=== PATIENT | male | born 1985 | race Caucasian/White ===

== ENCOUNTER → 2020-03-26 10:04 | Outpatient (CLI) | payer BC, SELFPAY | PROVIDERS: PCP Family Medicine; Referring Provider Dermatology; Visit Provider Dermatology | DX: L20.89 Other atopic dermatitis (principal) | CPT/HCPCS: 87070; 87077; 87186; 87205 ==

== ENCOUNTER 2020-12-10 08:58 | Outpatient (RCR) | payer BC, SELFPAY | END 2021-01-14 23:59 | LOC: IMMUN 08:58 | PROVIDERS: PCP Family Medicine; Visit Provider Family Medicine | DX: Z23 Encounter for immunization (principal) | CPT/HCPCS: 0001A; 0002A; 91300 ==

== ENCOUNTER 2023-04-17 14:49 | Inpatient (IN) | payer BC, SELFPAY ==
[2023-04-17 14:49] VITALS: BP 168/110; PULSE 127; RESP 18; TEMP 35.5; O2SAT 93; BMI 50.2
--- NOTE | 2023-04-17 15:09 | CT_ITS ---
EXAM: CT ABDOMEN AND PELVIS WITH INTRAVENOUS CONTRAST CLINICAL INDICATION: abd pain, hernia, vomiting TECHNIQUE: Helically acquired images were obtained of the abdomen and pelvis with intravenous contrast. This CT exam was performed using one or more of the following dose reduction techniques: automated exposure control, adjustment of the mA and/or kV according to patient size, and/or use of iterative reconstruction technique. CONTRAST: IV 100mL Isovue-370 COMPARISON: No relevant prior studies available. FINDINGS: LOWER THORAX: Unremarkable. Lung bases are clear. No cardiomegaly. No significant pericardial effusion. ABDOMEN: LIVER: Liver is diffusely decreased in attenuation compatible with fatty infiltration. GALLBLADDER AND BILE DUCTS: Unremarkable. No calcified gallstones. No gallbladder distention or wall edema. No intra- or extrahepatic biliary ductal dilation. PANCREAS: Unremarkable. No focal cystic or solid mass. SPLEEN: Unremarkable. Normal size without focal cystic or solid mass. ADRENALS: Unremarkable. No nodules. KIDNEYS AND URETERS: Unremarkable. Normal renal size and position. No hydronephrosis. STOMACH AND BOWEL: There are dilated gas and fluid-filled loops of bowel proximally normal caliber bowel loops distally compatible with mechanical obstruction. There is an umbilical hernia which has a bowel in the hernia sac which appears to point of obstruction. No focal inflammatory change. PELVIS: APPENDIX: No evidence of acute appendicitis. BLADDER: Unremarkable. REPRODUCTIVE: Unremarkable as visualized. No mass. ABDOMEN and PELVIS: INTRAPERITONEAL SPACE: Unremarkable. No ascites or other fluid collection. No free air. BONES/JOINTS: Unremarkable. No suspicious lytic or blastic abnormality. SOFT TISSUES: See above. VASCULATURE: Unremarkable. Abdominal aorta is non-dilated. LYMPH NODES: Unremarkable. No enlarged lymph nodes. CT/Abdomen/Pelvis W IV Cont ONLY IMPRESSION: Dilated gas and fluid-filled loops of small bowel proximally with normal caliber bowel loops distally compatible with mechanical obstruction. There is an umbilical hernia which contains a loop of bowel and appears to be the point of obstruction. Electronically Signed: Tommy Marion MD at 17:00 EDT ,
--- NOTE | 2023-04-17 15:23 | EDS_ITS ---
HPI HPI - GI History of Present Illness Chief Complaint: Abd Pain Informant: patient and parent Narrative Narrative: Patient is a 37-year-old male presenting from home for continued abdominal pain, nausea and vomiting. Patient states his symptoms for started 3 [place] Initially they thought it was some type of food poisoning. He has continued to have vomiting. He has had a bowel movement a couple days. He is having diffuse abdominal pain but points more to his umbilical region. He does note that he thinks he has a hernia in that area. He states he just noticed it about a week and a half ago however has been more painful over the past day or so. Denies any blood in his vomit. He states he cannot keep anything down and throws up everything. He notes he has not urinated since yesterday. Denies any fever but does feel clammy. No history of any abdominal surgeries. Has never had a thing like this before. No other complaints or concerns at this time. Notes he is also feeling very anxious and does have a history of anxiety. PFSH PFSH Home Medications lisdexamfetamine 70 mg capsule (Vyvanse) 70 mg PO DAILY 12/03/15 [History Last Taken Unknown] albuterol sulfate 90 mcg/actuation aerosol inhaler 2 puff inhalation Q4H PRN shortness of breath 04/17/23 [History Last Taken Unknown] cetirizine 10 mg tablet (24Hour Allergy) 10 mg PO DAILY allergies 04/17/23 [History Last Taken Unknown] fluticasone propionate 50 mcg/actuation nasal spray,suspension 2 spray intranasal DAILY allergies 04/17/23 [History Last Taken Unknown] hydrochlorothiazide 12.5 mg capsule 12.5 mg PO DAILY HTN 04/17/23 [History Last Taken Unknown] lisinopril 10 mg tablet 10 mg PO DAILY 04/17/23 [History Last Taken Unknown] meloxicam 15 mg tablet 15 mg PO DAILY 04/17/23 [History Last Taken Unknown] omeprazole 20 mg capsule,delayed release 20 mg PO DAILY 04/17/23 [History Last Taken Unknown] sertraline 100 mg tablet 100 mg PO DAILY depression 04/17/23 [History Last Taken Unknown] Allergy/AdvReac Type Severity Reaction Status Date / Time latex Allergy Rash Verified 04/17/23 14:51 Social History Smoking Status: Former smoker ROS ROS ED Constitutional Constitutional ED: Reports other Details: Clammy, not able to keep anything down ; Denies chills or fever(s) Cardiovascular Cardiovascular: Denies chest pain Respiratory/Chest Respiratory/Chest: Denies cough Gastrointestinal Gastrointestinal: Reports abdominal pain, constipation, nausea and vomiting; Denies diarrhea Genitourinary Genitourinary ED: Reports other Details: Decreased urination, denies any testicular pain ; Denies dysuria Musculoskeletal Musculoskeletal: Denies arthralgias or myalgias Integumentary Denies rash Neurologic Neurologic: Denies headache(s) Psychiatric Psychiatric: Reports anxiety EXAM Physical Exam Const Vital Signs: 04/17/23 14:49 04/17/23 16:42 Temperature 96 F L 97 F L Temperature Source Temporal Temporal Pulse Rate 127 H 106 H Respiratory Rate 18 20 H Blood Pressure 168/110 H 142/69 H Blood Pressure Mean 129 93 Pulse Ox 93 92 Oxygen Delivery Method Room Air Room Air Positive well nourished and obese Constitutional Narrative: Uncomfortable appearing Nutritional Appearance: obese HEENT Reports dry mucous membranes Mouth ED: Yes dry mucous membranes Mouth: dry mucous membranes Eyes PERRL and EOMs intact bilaterally General Eye ED: Negative for scleral icterus Neck supple Resp normal respiratory effort and clear to auscultation bilaterally Cardio regular rhythm Rate: tachycardic GI GI Narrative: Patient has a periumbilical hernia just superior and to the left of the umbi licus. It is firm and tender. Does not easily reduce. There is no overlying erythema. Inspection: abdominal distention Auscultation: hypoactive bowel sounds Palpation: soft; Negative for guarding Extremity full ROM General Extremety ED: Negative for edema General Extremity: Negative for edema Neuro moves all extremities Sensorium / Orientation: alert, oriented to person, oriented to place and oriented to time Psych mental status grossly normal Mood & Affect: anxious Skin no wounds Rashes: no rashes MDM MDM MDM Narrative Medical decision making narrative: Patient is evaluated for nausea, vomiting abdominal pain. On arrival he is hypertensive (does have a history of hypertension) and tachycardic. He does appear dehydrated. I am concerned about incarcerated hernia based on physical exam and HPI. We will attempt some pain control, ice over the hernia and try to reduce. If not we will evaluate after CT. At this time he does not have overlying erythema and I have a lower suspicion for strangulated hernia. 1600?patient is reevaluated after medicated. With steady gentle pressure I am able to reduce the hernia. Patient tolerates this reasonably well and has impro vement of pain after reduction. We will continue with work-up looking for signs of ischemia, obstruction on CT, pancreatitis, renal insufficiency/dehydration. Patient is a mild leukocytosis does appear to be hemoconcentrated with an elevated hemoglobin and he has a very mild transaminitis on his CMP. Lipase is normal. CT is concerning for mechanical obstruction. Patient continues to have significant movement of pain after manual reduction of the hernia. His lactate is normal. Low sufficient for strangulated hernia. Surgical consult is obtained and case is discussed with Dr. Genao. He will admit the patient and plan for laparoscopic hernia repair. Patient agreeable this plan of care. Patient will will continue hydration and symptom control the meantime. Lab Data Labs: Laboratory Results - last 24 hr 04/17/23 15:35 WBC 12.8 H RBC 6.48 H Hgb 17.3 H Hct 51.9 MCV 80.1 MCH 26.7 L MCHC 33.3 RDW Std Deviation 45.0 H RDW Coeff of Kiet 16.3 H Plt Count 202 MPV 10.2 Immature Gran % (Auto) 0.300 Neut % (Auto) 82.5 H Lymph % (Auto) 5.5 L [place] % (Auto) 10.9 H Eos % (Auto) 0.5 Baso % (Auto) 0.3 Absolute Neuts (auto) 10.6 H Absolute Lymphs (auto) 0.70 L Nucleated RBC % 0 Sodium 137 Potassium 3.5 Chloride 101 Carbon Dioxide 29.0 Anion Gap 7 BUN 27 H Creatinine 1.15 Estim Creat Clear Calc 104.24 Est GFR (MDRD) Af Amer 93 Est GFR (MDRD) Non-Af 77 BUN/Creatinine Ratio 23.5 H Glucose 142 H Lactic Acid 1.4 Calcium 9.4 Total Bilirubin 1.20 H AST 41 H ALT 86 H Alkaline Phosphatase 103 Total Protein 8.2 Albumin 4.2 Globulin 4.0 Albumin/Globulin Ratio 1.0 Lipase 27 Radiography Diagnostic Testing: Clinical Impression(s) from Imaging Studies Abdomen/Pelvis CT 04/17/23 15:09 IMPRESSION: Dilated gas and fluid-filled loops of small bowel proximally with normal caliber bowel loops distally compatible with mechanical obstruction. There is an umbilical hernia which contains a loop of bowel and appears to be the point of obstruction. Electronically Signed: Tommy Marion MD at 17:00 EDT , Management Discussion w/another healthcare provider: Injection Molding Process Technician Discharge Plan Triage Chief Complaint: Abd Pain ED Provider: Radhika Soria Dx/Rx/DC Orders Clinical Impression: Ventral hernia with obstruction but no gangrene, Acute dehydration Primary Care Provider: Giuseppe Sheets Disposition Disposition: Acute Care Hospital [facility]
[2023-04-17 15:45] LABS: Absolute Neutrophil Count 10.6 X10^3/uL (2.0-7.7); Basophil# 0.04 X10^3/uL; Basophil% 0.3 % (0-1); Eosinophil# 0.06 X10^3/uL; Eosinophils% 0.5 % (0-5); Hematocrit 51.9 % (40-54); Hemoglobin 17.3 g/dL (13.0-16.5); Lymphocyte % 5.5 % (19-41); Mean Corp Hgb Conc 33.3 g/dL (32-36); Mean Corpuscular Hgb 26.7 pg (27.0-32.0); Mean Corpuscular Volume 80.1 fL (80-94); Mean Platelet Vol. 10.2 fl (6.2-12.0); Monocyte% 10.9 % (0-10); NRBC Flagged by Analyzer 0 % (0-5); Neutrophil # 10.56 X10^3/uL (2.7-7.7); Neutrophil % 82.5 % (47-70); Platelet Count 202 K/mm3 (150-450); RBC Distribution Width CV 16.3 % (11.6-14.6); Red Blood Count 6.48 M/mm3 (4.6-6.2); White Blood Count 12.8 K/mm3 (4.4-11.0)
[2023-04-17] MEDS: morphine 8 MG/ML Syringe IV (15:46)
[2023-04-17] MEDS: 0.9% Normal Saline (1000mL) 1,000 ML 1000 ML IV (15:46)
[2023-04-17] MEDS: Ondansetron 4 MG/2 ML Vial IV (15:46)
[2023-04-17 16:08] LABS: Lactic Acid 1.4 mmol/L (0.4-1.9)
[2023-04-17 16:09] LABS: AST(SGOT) 41 U/L (15-37); Alanine Aminotransfer ALT/SGPT 86 U/L (16-61); Albumin, Serum 4.2 g/dL (3.2-5.0); Alkaline Phosphatase 103 U/L (45-117); Anion Gap 7 (5-15); BUN 27 mg/dL (7-18); BUN/Creat Ratio 23.5 RATIO (10-20); Calcium,Total 9.4 mg/dL (8.5-10.1); Chloride 101 mmol/L (98-107); Creatinine, Serum 1.15 mg/dL (0.70-1.30); EST Glomerular Filtration Rate 77 mL/min (>60); Est Glom Filt Rate - Afr Amer 93 mL/min (>60); Estimated Creatinine Clearance 104.24 ml/min; Glucose 142 mg/dL (74-106); Lipase 27 U/L (13-75); Potassium 3.5 mmol/L (3.5-5.1); Protein, Total 8.2 g/dL (6.4-8.2); Sodium Level 137 mmol/L (136-145)
[2023-04-17 16:42] VITALS: BP 142/69; PULSE 106; RESP 20; TEMP 36.1; O2SAT 92
--- NOTE | 2023-04-17 16:43 | PCM.HP.STD ---
HPI - General HPI Narrative ALEXANDRU MYERS, is a 37 M who presents with pain and nausea and vomiting. Patient says this started today. Patient says he noted his hernia about a week ago. This is the first time he is noticed it. The emergency room physician reduce his hernia and he reports he is feeling better. He is not nauseous currently. [facility] Home Medications etodolac 300 mg capsule 300 mg PO TIDCM ##30 12/03/15 [Rx Last Taken Unknown] lisdexamfetamine 70 mg capsule (Vyvanse) 70 mg PO DAILY 12/03/15 [History Last Taken Unknown] prednisone 10 mg tablet 10 mg PO DAILY 12/03/15 [History Last Taken Unknown] Allergy/AdvReac Type Severity Reaction Status Date / Time latex Allergy Rash Verified 04/17/23 14:51 Social History Smoking Status: Former smoker ROS Constitutional Constitutional: Reports anorexia; Denies fatigue or fever(s) Eyes Eyes: Denies blurry vision ENT HEENT: Denies abnormal hearing Cardiovascular Cardiovascular: Denies chest pain Respiratory/Chest Respiratory/Chest: Denies cough or dyspnea Gastrointestinal Gastrointestinal: Reports abdominal pain, nausea and vomiting; Denies coffee ground emesis or rectal bleeding Genitourinary Genitourinary: Denies difficulty urinating Musculoskeletal Musculoskeletal: Denies abnormal gait Integumentary Integumentary: Denies jaundice Neurologic Neurologic: Denies dizziness Vital Signs Vital Signs Vital Signs: 04/17/23 14:49 Temperature 96 F L Temperature Source Temporal Pulse Rate 127 H Respiratory Rate 18 Blood Pressure 168/110 H Blood Pressure Mean 129 Pulse Ox 93 Oxygen Delivery Method Room Air Weight Weight: 391 lb Body Mass Index (BMI) 50.2 Physical Exam Const oriented x3 and no apparent distress Resp normal respiratory effort Cardio regular rhythm Rate: tachycardic GI soft to palpation GI Narrative: Patient's abdomen is soft and obese. He has a hernia at the umbilicus which does not contain any bowel currently. He is tender at the hernia but the rest the abdomen is nontender. Results Lab / Micro Data 04/17/23 15:35 04/17/23 15:35 Labs: Laboratory Results - last 24 hr 04/17/23 15:35: WBC 12.8 H, RBC 6.48 H, Hgb 17.3 H, Hct 51.9, MCV 80.1, MCH 26.7 L, MCHC 33.3, RDW Std Deviation 45.0 H, RDW Coeff of Kiet 16.3 H, Plt Count 202, MPV 10.2, Immature Gran % (Auto) 0.300, Neut % (Auto) 82.5 H, Lymph % (Auto) 5.5 L, [place] % (Auto) 10.9 H, Eos % (Auto) 0.5, Baso % (Auto) 0.3, Absolute Neuts (auto) 10.6 H, Absolute Lymphs (auto) 0.70 L, Nucleated RBC % 0, Sodium 137, Potassium 3.5, Chloride 101, Carbon Dioxide 29.0, Anion Gap 7, BUN 27 H, Creatinine 1.15, Estim Creat Clear Calc 104.24, Est GFR (MDRD) Af Amer 93, Est GFR (MDRD) Non-Af 77, BUN/Creatinine Ratio 23.5 H, Glucose 142 H, Lactic Acid 1.4, Calcium 9.4, Total Bilirubin 1.20 H, AST 41 H, ALT 86 H, Alkaline Phosphatase 103, Total Protein 8.2, Albumin 4.2, Globulin 4.0, Albumin/Globulin Ratio 1.0, Lipase 27 Assessment & Plan Assessment/Plan (1) Ventral hernia with obstruction but no gangrene: PLAN: Patient was here with pain and nausea and vomiting. CT scan revealed distended proximal small bowel with transition point at the hernia. The physician in the emergency room was able to reduce the hernia. The patient says he feels better. I will admit him to the floor for observation and keep n.p.o. until he passes gas. I plan on repairing the hernia on Wednesday laparoscopically. I discussed laparoscopic ventral hernia repair with mesh in detail with the patient. I discussed the risks such as bleeding, infection, injury to underlying organs. Patient understands the risks and is when to proceed. Tejas Genao MD Pager: [facility] [address] [place] [address], [address] [place] [address] Office:
[2023-04-17 17:51] VITALS: BMI 48.9
[2023-04-17] MEDS: 0.9% Normal Saline (1000mL) 1,000 ML 100 ML IV (18:00)
[2023-04-17 18:01] VITALS: BP 161/103; PULSE 111; RESP 16; TEMP 38.1; O2SAT 93
[2023-04-17 19:00] LABS: Bacteria 0 SEEN /hpf (None Seen); Mucous, Urine 0 SEEN /hpf (<or=2+)
[2023-04-17 19:04] LABS: Glucose, Dipstick Normal (Normal); Ketone-Dipstick 5 mg/dl (Negative); Leukocyte Esterase-Dipstick 25 /ul (Negative); Nitrite-Dipstick Negative (Negative); Occult Blood-Urine 10 /ul (Negative); Protein-Dipstick 30 mg/dl (Negative); Specific Gravity, Urine 1.015 (1.002-1.030); Urine Clarity Sl. Cloudy (Clear); Urine Urobilinogen 4 mg/dl (Normal)
[2023-04-17 19:05] LABS: Color, Urine Amber (Yellow); Urine Bilirubin Dipstick 3 mg/dL (Negative)
[2023-04-17 19:14] LABS: Red Blood Cells-Urine 0-5 SEEN /hpf (0-5); Squamous Epithelial Cells - UA 0-5 SEEN /hpf (0-5); White Blood Cells 0-5 SEEN /hpf (0-5)
[2023-04-17] MEDS: Acetaminophen 325 MG Tablet 650 MG PO (20:07)
[2023-04-17 20:12] VITALS: BP 150/93; PULSE 106; RESP 18; TEMP 37.5; O2SAT 94
[2023-04-18] MEDS: 0.9% Normal Saline (1000mL) 1,000 ML 100 ML IV (04:42)
[2023-04-18 05:25] VITALS: BP 121/83; PULSE 92; RESP 20; TEMP 37; O2SAT 94
[2023-04-18 07:17] LABS: Absolute Neutrophil Count 4.9 X10^3/uL (2.0-7.7); Basophil# 0.05 X10^3/uL; Basophil% 0.7 % (0-1); Eosinophil# 0.19 X10^3/uL; Eosinophils% 2.5 % (0-5); Hematocrit 48.9 % (40-54); Lymphocyte % 15.8 % (19-41); Mean Corp Hgb Conc 30.7 g/dL (32-36); Mean Corpuscular Hgb 25.6 pg (27.0-32.0); Mean Corpuscular Volume 83.3 fL (80-94); Mean Platelet Vol. 10.6 fl (6.2-12.0); Monocyte# 1.26 X10^3/uL; Monocyte% 16.6 % (0-10); NRBC Flagged by Analyzer 0 % (0-5); Neutrophil # 4.85 X10^3/uL (2.7-7.7); Platelet Count 162 K/mm3 (150-450); RBC Distribution Width CV 15.9 % (11.6-14.6); RBC Distribution Width SD 48.1 fl (35.1-43.9); Red Blood Count 5.87 M/mm3 (4.6-6.2); White Blood Count 7.6 K/mm3 (4.4-11.0)
[2023-04-18 07:43] LABS: Anion Gap 6 (5-15); BUN 27 mg/dL (7-18); BUN/Creat Ratio 29.3 RATIO (10-20); Chloride 106 mmol/L (98-107); Creatinine, Serum 0.92 mg/dL (0.70-1.30); EST Glomerular Filtration Rate 99 mL/min (>60); Est Glom Filt Rate - Afr Amer 120 mL/min (>60); Glucose 118 mg/dL (74-106); Potassium 3.1 mmol/L (3.5-5.1); Sodium Level 138 mmol/L (136-145)
[2023-04-18 08:52] VITALS: BP 144/89; PULSE 99; RESP 16; TEMP 37.1; O2SAT 92
--- NOTE | 2023-04-18 09:27 | PN.SURG_ITS ---
Subjective Subjective Patient reports having several bowel movements. He is not having pain unless his hernia is palpated. Objective Data Objective Data Vital Signs: Vital Signs Temp Pulse Resp BP Pulse Ox O2 Del Method 98.7 F 99 16 144/89 H 92 Room Air 04/18/23 08:52 04/18/23 08:52 04/18/23 08:52 04/18/23 08:52 04/18/23 08:52 04/18/23 08:52 Oxygen Delivery Method Room Air Weight: 381 lb Body Mass Index (BMI) 48.9 Intake & Output: Intake and Output for Last 24 Hours 04/16/23 04/17/23 04/18/23 23:59 23:59 23:59 Intake Total 1000 / 1000 1000 / 1000 Output Total 250 / 250 Balance 750 / 750 1000 / 1000 Lab / Micro Data 04/18/23 07:01 04/18/23 07:01 Labs: Laboratory Results - last 24 hr 04/17/23 15:35: WBC 12.8 H, RBC 6.48 H, Hgb 17.3 H, Hct 51.9, MCV 80.1, MCH 26.7 L, MCHC 33.3, RDW Std Deviation 45.0 H, RDW Coeff of Kiet 16.3 H, Plt Count 202, MPV 10.2, Immature Gran % (Auto) 0.300, Neut % (Auto) 82.5 H, Lymph % (Auto) 5.5 L, [place] % (Auto) 10.9 H, Eos % (Auto) 0.5, Baso % (Auto) 0.3, Absolute Neuts (auto) 10.6 H, Absolute Lymphs (auto) 0.70 L, Nucleated RBC % 0, Sodium 137, Potassium 3.5, Chloride 101, Carbon Dioxide 29.0, Anion Gap 7, BUN 27 H, Creatinine 1.15, Estim Creat Clear Calc 104.24, Est GFR (MDRD) Af Amer 93, Est GFR (MDRD) Non-Af 77, BUN/Creatinine Ratio 23.5 H, Glucose 142 H, Lactic Acid 1.4, Calcium 9.4, Total Bilirubin 1.20 H, AST 41 H, ALT 86 H, Alkaline Phosphatase 103, Total Protein 8.2, Albumin 4.2, Globulin 4.0, Albumin/Globulin Ratio 1.0, Lipase 27 04/17/23 18:55: Urine Color [place], Urine Clarity Sl. Cloudy, Urine pH 5.0, Ur Specific [place] 1.015, Urine Protein 30 H, Urine Glucose (UA) Normal, Urine Ketones 5 H, Urine Occult Blood 10 H, Urine Nitrite Negative, Urine Bilirubin 3 H, Urine Urobilinogen 4 H, Ur Leukocyte Esterase 25 H, Urine RBC 0-5 SEEN, Urine WBC 0-5 SEEN, Ur Squamous Epith Cells 0-5 SEEN, Urine Bacteria 0 SEEN, Urine Mucus 0 SEEN 04/18/23 07:01: WBC 7.6, RBC 5.87, Hgb 15.0, Hct 48.9, MCV 83.3, MCH 25.6 L, MCHC 30.7 L D, RDW Std Deviation 48.1 H, RDW Coeff of Kiet 15.9 H, Plt Count 162, MPV 10.6, Immature Gran % (Auto) 0.400, Neut % (Auto) 64.0, Lymph % (Auto) 15.8 L, [place] % (Auto) 16.6 H, Eos % (Auto) 2.5, Baso % (Auto) 0.7, Absolute Neuts (auto) 4.9, Absolute Lymphs (auto) 1.20, Nucleated RBC % 0, Sodium 138, Potassium 3.1 L, Chloride 106, Carbon Dioxide 26.0, Anion Gap 6, BUN 27 H, Creatinine 0.92, Estim Creat Clear Calc 130.30, Est GFR (MDRD) Af Amer 120, Est GFR (MDRD) Non-Af 99, BUN/Creatinine Ratio 29.3 H, Glucose 118 H, Calcium 8.0 L Radiography Diagnostic Testing: Radiology Impression Abdomen/Pelvis CT 04/17/23 15:09 IMPRESSION: Dilated gas and fluid-filled loops of small bowel proximally with normal caliber bowel loops distally compatible with mechanical obstruction. There is an umbilical hernia which contains a loop of bowel and appears to be the point of obstruction. Electronically Signed: Tommy Marion MD at 17:00 EDT , Physical Exam Const oriented x3 and no apparent distress Resp normal respiratory effort GI soft to palpation and non-tender Assessment & Plan Assessment/Plan (1) Ventral hernia with obstruction but no gangrene: PLAN: Patient had small bowel obstruction due to ventral hernia. The hernia is still reduced. I plan on repairing this laparoscopically tomorrow. I will order him a diet today and his home medications and plan for n.p.o. after midnight and surgery tomorrow. Tejas Genao MD Pager: [facility] [address] [place] [address] [address] [place] [address] Office:
[2023-04-18] MEDS: Potassium Chloride 10mEq/100mL 10 MEQ/100 ML IV.SOLN. 100 MEQ IV BOLUS ×2 (10:04→11:15)
[2023-04-18] MEDS: Fluticasone 0.05% 1 SPRAY NASAL.SRY 2 SPRAY NASAL (11:13)
[2023-04-18] MEDS: Lisinopril 10 MG Tablet PO (11:14)
[2023-04-18] MEDS: hydroCHLOROthiazide 12.5mg 12.5 MG PO (11:14)
[2023-04-18] MEDS: Meloxicam 15 MG Tablet PO (11:14)
[2023-04-18] MEDS: Sertraline 100 MG Tablet PO (11:14)
[2023-04-18] MEDS: Pantoprazole Sodium 20 MG Tablet PO (11:14)
[2023-04-18] MEDS: Loratadine 10 MG Tablet PO (11:15)
[2023-04-18 11:40] VITALS: BP 144/98; PULSE 96; RESP 16; TEMP 36.3; O2SAT 99
--- NOTE | 2023-04-18 13:20 | EKG12_ITS ---
Test Reason : preop Blood Pressure : / mmHG Vent. Rate : 090 BPM Atrial Rate : 090 BPM P-R Int : 146 ms QRS Dur : 164 ms QT Int : 398 ms P-R-T Axes : 022 -76 037 degrees QTc Int : 486 ms Normal sinus rhythm Right bundle branch block Left anterior fascicular block Bifascicular block Minimal voltage criteria for LVH, may be normal variant ( R in aVL ) Abnormal ECG Confirmed by GEO ELIZABETH, BIRD ([id number]), film editor supervisor CYNTHIA HILL ([id number]) on 05/18/2023 1:34:11 PM Referred By: Confirmed By:BIRD GUARDADO MD
[2023-04-18 15:36] VITALS: BP 148/105; PULSE 93; RESP 16; TEMP 36.9; O2SAT 94
[2023-04-18 20:15] VITALS: BP 153/93; PULSE 101; RESP 18; TEMP 37.2; O2SAT 94
[2023-04-18] MEDS: Ondansetron 4 MG/2 ML Vial IV (21:17)
[2023-04-18] MEDS: 0.9% Saline Lock 10 ML Syringe IV ×2 (21:17→22:47)
[2023-04-18] MEDS: 0.9% Normal Saline (1000mL) 1,000 ML 40 ML IV (21:18)
[2023-04-18] MEDS: Morphine 2 MG/ML Syringe IV (22:46)
[2023-04-19] VITALS (8 sets, daily range): BP systolic 122–166; BP diastolic 63–95; PULSE 91–102; RESP 18–92; TEMP 36.4–37.4; O2SAT 3–98
--- NOTE | 2023-04-19 | HERN_PTH ---
PATIENT: ALEXANDRU MYERS LOC: MS3 U#:[id number] AGE/SX: 37/M ROOM: LA323 RE04/17/[address]: Dr. Tejas Genao MD : [id number] BED: 1 DIS: 04/20/2023 SPEC #: [id number] RECD: 04/20/23 07:19 STATUS: SIOBHAN CHAVEZKalyani #: [id number] UZAIR: 04/19/23 00:[address]: Tejas Genao DEPT: SURGICAL PATHOLOGY RECD BY: Lan Cloud ENTERED: 04/20/23 08:12 SP TYPE: Hernia OTHR DR: Dr. Giuseppe Sheets MD Tissues: HERNIA Procedures: Surgery Specimen Level II HEADER OPERATION: Laparoscopic ventral incarcerated hernia repair PRE-OP DIAGNOSIS: Ventral hernia with obstruction TISSUE SUBMITTED: Hernia sac MICROSCOPIC DIAGNOSIS Hernia sac: A piece of fibroadipose and fibroconnective tissue with reactive changes and chronic inflammation. SJ:sonny 04/21/2023 MICROSCOPIC DESCRIPTION Slides are reviewed. GROSS DESCRIPTION Received in fixative is one container labeled with the patient's name and designated hernia sac. The specimen consists of a piece of yellow sac-like structure measuring 5.5 x 4.0 x 1.2 cm. A detached piece of soft tissue is also noted measuring 2.0 x 1.0 x 0.8 cm. Sections do not reveal any mass lesion. Ivf Embryologist sections are submitted in one cassette. / GRANT:sonny 04/20/2023 TC:5 CPT: 71826
--- NOTE | 2023-04-19 08:19 | PN.SURG_ITS ---
Subjective Subjective Patient reports that he started having vomiting last night and pushed his hernia back in and now he is feeling back to baseline. Objective Data Objective Data Vital Signs: Vital Signs Temp Pulse Resp BP Pulse Ox O2 Del Method 98.7 F 102 H 18 158/76 H 96 Room Air 04/19/23 02:15 04/19/23 02:15 04/19/23 02:15 04/19/23 02:15 04/19/23 02:15 04/19/23 02:15 Oxygen Delivery Method Room Air Weight: 380 lb 15.34 oz Body Mass Index (BMI) 48.9 Intake & Output: Intake and Output for Last 24 Hours 04/17/23 04/18/23 04/19/23 23:59 23:59 23:59 Intake Total 1000 / 1000 3408 / 3658 250 / 250 Output Total 250 / 250 Balance 750 / 750 3408 / 3658 250 / 250 Lab / Micro Data 04/18/23 07:01 04/18/23 07:01 Physical Exam Const oriented x3 and no apparent distress Resp normal respiratory effort GI soft to palpation Assessment & Plan Assessment/Plan (1) Ventral hernia with obstruction but no gangrene: PLAN: The patient did have some vomiting last night and reports that the hernia came back out. He was able to push it back in. I plan for laparoscopic ventral hernia repair with mesh this afternoon. I discussed the surgery with him in detail. I discussed the risks including but limited to bleeding, infection, injury to underlying organs, hernia recurrence. I also discussed mesh placement with him in detail. Patient understands and is willing to proceed. Tejas Genao MD Pager: [facility] [address] [place] [address], [address] [place] [address] Office:
[2023-04-19 10:48] LABS: Absolute Lymphocyte Count 0.88 X10^3/uL (0.83-4.51); Absolute Neutrophil Count 6.8 X10^3/uL (2.0-7.7); Basophil# 0.04 X10^3/uL; Basophil% 0.4 % (0-1); Eosinophil# 0.29 X10^3/uL; Eosinophils% 3.1 % (0-5); Hematocrit 45.7 % (40-54); Hemoglobin 14.9 g/dL (13.0-16.5); Lymphocyte # 0.88 X10^3/ul (0.83-4.51); Lymphocyte % 9.4 % (19-41); Mean Corp Hgb Conc 32.6 g/dL (32-36); Mean Corpuscular Hgb 26.5 pg (27.0-32.0); Mean Corpuscular Volume 81.2 fL (80-94); Mean Platelet Vol. 9.6 fl (6.2-12.0); Monocyte# 1.38 X10^3/uL; Monocyte% 14.7 % (0-10); NRBC Flagged by Analyzer 0 % (0-5); Neutrophil # 6.76 X10^3/uL (2.7-7.7); Neutrophil % 72.2 % (47-70); Platelet Count 153 K/mm3 (150-450); RBC Distribution Width CV 15.5 % (11.6-14.6); RBC Distribution Width SD 45.7 fl (35.1-43.9); Red Blood Count 5.63 M/mm3 (4.6-6.2); White Blood Count 9.4 K/mm3 (4.4-11.0)
[2023-04-19 11:14] LABS: Anion Gap 6 (5-15); BUN 20 mg/dL (7-18); BUN/Creat Ratio 28.3 RATIO (10-20); Chloride 107 mmol/L (98-107); Creatinine, Serum 0.71 mg/dL (0.70-1.30); EST Glomerular Filtration Rate 135 mL/min (>60); Est Glom Filt Rate - Afr Amer 163 mL/min (>60); Estimated Creatinine Clearance 168.84 ml/min; Glucose 123 mg/dL (74-106); Potassium 3.3 mmol/L (3.5-5.1); Sodium Level 141 mmol/L (136-145)
[2023-04-19] MEDS: Potassium Chloride 10mEq/100mL 10 MEQ/100 ML IV.SOLN. 100 MEQ IV BOLUS ×2 (13:03→14:20)
[2023-04-19] MEDS: Fluticasone 0.05% 1 SPRAY NASAL.SRY 2 SPRAY NASAL (13:38)
[2023-04-19] MEDS: Lactated Ringers 1,000 ML 15 ML IV (14:24)
--- NOTE | 2023-04-19 14:34 | CASEMGMT ---
RN CM NOTE: RN CM to room to complete initial RN CM assessment. Pt out of room at this time. Assessment to be completed at a later time. Renu BSN RN CM
[2023-04-19] MEDS: Cefazolin 3 GM in 0.9% Normal Saline (100mL Bag) 100 ML IV (16:07)
[2023-04-19] MEDS: Bupivacaine 0.25% 30 ML Vial (16:10)
--- NOTE | 2023-04-19 17:05 | PCM.OPRPT ---
Report of Operation Date of Procedure: 04/19/23 Pre-Operative Diagnosis: Ventral hernia with history of obstruction Post-Operative Diagnosis: Ventral hernia 3.2 cm Surgery/Procedure Performed:: Laparoscopic hybrid ventral hernia repair with mesh Type of Anesthesia: General/Regional Specimen's removed: Hernia sac Estimated Blood Loss (mL): 5 Description of Procedure: Patient was brought back to the operating room and general anesthesia was induced. The abdomen was prepped and draped in usual sterile fashion. An incision was made in the left upper quadrant and using Visiport technique a 5 mm port was placed. The abdomen was insufflated to 15 mmHg and inspected. The loop of bowel that had previously been in the hernia appeared viable. There was no transition point or necrosis. Next the hernia was localized on the skin and then a curvilinear incision was marked superior to the umbilicus. The camera was removed from the abdomen and the curvilinear incision superior to the umbilicus was incised. It was deepened to the hernia sac. The hernia sac was circumferentially dissected using electrocautery. The hernia sac was incised and removed. Next the hernia defect was reapproximated using interrupted 1 Nurolon sutures. This reapproximated the defect which was approximately 3.2 cm in diameter. For the last suture was tied a 12 mm port was placed through the hernia and the abdomen was reinsufflated. Through this 12 mm port a rolled up Ventralight ST mesh with echo deployment device was placed into the abdomen under visualization. Next the port was removed and the suture was tied. Next the abdomen was insufflated and the balloon was elevated and inflated and clamped. Next in the right lateral sidewall 5 mm port was placed under direct visualization. The mesh was tacked in 4 quadrants and then the balloon was removed in its entirety. Next the mesh was tacked circumferentially to the anterior abdominal wall. After this the abdomen was desufflated and the ports were removed. All the incisions were injected with local anesthetic. The incisions were closed with interrupted 4-0 Monocryl sutures and Steri-Strips and a bandage. Patient tolerated the procedure well and was awoken and taken to PACU in stable condition. Grafts/Implants Used: [address] mesh Admit VTE Documentation VTE Mechan Device Prophylaxis: SCD's
[2023-04-19] MEDS: 0.9% Normal Saline (1000mL) 1,000 ML 40 ML IV (18:38)
[2023-04-19] MEDS: Morphine 2 MG/ML Syringe IV (22:59)
[2023-04-20] MEDS: Acetaminophen 325 MG Tablet 650 MG PO ×2 (01:17→07:06)
[2023-04-20] MEDS: oxyCODONE 5 MG Tablet PO ×3 (01:17→12:46)
[2023-04-20 02:30] VITALS: BP 155/80; PULSE 88; RESP 18; TEMP 36.6; O2SAT 96
[2023-04-20 05:17] VITALS: BP 136/76; PULSE 88; RESP 16; TEMP 36.6; O2SAT 98
--- NOTE | 2023-04-20 07:38 | DCINST_ITS ---
Discharge Instructions Diet Discharge Diet: Light diet - advance as tolerated Activity Discharge Activity: May Not Drive (3-5 days or while taking narcotic pain medication) and May Shower (starting tomorrow) Lifting Restrictions: 15 pounds for 4 weeks Dressing / Incision Call your doctor if your incision/area has: Continuous Slow Oozing, Sudden Increased Bleeding, Increased Pain/ Swelling, Increased Redness, Foul Smelling Discharge and Swelling at the incision site Call your doctor if you observe: Fever of 101 or Higher Suture Line Care: Avoid Pulling/Pushing and Avoid Pinching/Bending Change Dressing in: 1 day Cleanse incision/area with: Soap & Water Follow Up Care Please Follow Up With: Tejas Genao MD When: Please call our office to schedule an appointment for 2 weeks from your surgery date. Our office number is [phone] Test Results: Test results from this visit will be discussed in further detail at your follow- up appointment, if applicable. Discharge Plan Admission Admit Date/Time: 04/17/23 16:45 Primary Reason for Your Visit: Incarcerated ventral umbilical hernia with obstru ction Attending Provider: Tejas Genao Primary Care Provider: Giuseppe Sheets Instructions Additional Instructions / Restrictions: Diet ? Start light with soups and soft bland foods. You may advance diet as tolerated. Activity ? You may drive in 3-5 days but not while taking narcotic pain medication. ? Encourage walking. You may go up steps, one at a time. ? Do not swim or use hot tubs for 2 weeks. ? For comfort, you may use warm compresses or ice as needed for 15-20 minutes at a time. . You will need to brace your abdomen, with your arms or a pillow, when you go to cough or sneeze. This will cause some discomfort. Lifting ? You may lift up to 15 pounds for 4 weeks. Dressings/Incision ? You may shower OVER your plastic dressings ? Do NOT tub bathe for 1 week . You will need to change the dressing at the belly button incision daily ? Leave other plastic dressings on for 3 days. ? When plastic dressings are removed, you will find steri strips. It is okay to continue showering with them in place, pat them dry. ? You may remove steri-strips after 1 week. We recommend getting them soaking wet for easier removal. Medications ? Anesthesia used during surgery and pain medications may cause constipation. I recommend initiating on the day of surgery a fiber supplement like, Metamucil, Citrucel, FiberCon, Benefiber, or a generic form of these medications. 1 heaping tablespoon in water daily. You may continue to utilize any bowel regimen or oral laxatives that you routinely take. ? As long as you are not intolerant to Tylenol, acetaminophen, ibuprofen, Motrin, Advil, Aleve, or similar medications, I would recommend transitioning to these [id number] medicines as soon as possible instead of continued use of narcotic pain medication. Follow up ? You should call [facility] soon after surgery, at [phone] option 1 to make a follow up appointment 2 weeks after your surgery. You will direct any [place] paperwork or other work-related paperwork to our office. Discharge Orders/Prescriptions Prescriptions: New docusate sodium 100 mg Capsule 100 mg PO BID 14 Days Qty: 28 0RF oxycodone 5 mg Tablet 5 mg PO Q6H PRN PRN (Reason: Pain Score 4-10) 10 Days Qty: 30 0RF Continued lisdexamfetamine [Vyvanse] 70 MG capsule 70 mg PO DAILY meloxicam 15 mg tablet 15 mg PO DAILY Patient Comments: TAKE 1 TABLET BY MOUTH ONCE DAILY. TAKE WITH FOOD. sertraline 100 mg tablet 100 mg PO DAILY lisinopril 10 mg tablet 10 mg PO DAILY Patient Comments: TAKE 1 TABLET BY MOUTH EVERY DAY hydrochlorothiazide 12.5 mg capsule 12.5 mg PO DAILY albuterol sulfate 90 mcg/actuation HFA aerosol inhaler 2 puff INHALATION Q4H PRN (Reason: shortness of breath) Patient Comments: INHALE 2 PUFFS BY MOUTH EVERY 6 HOURS NEEDED DIRECTED fluticasone propionate 50 mcg/actuation spray,suspension 2 spray INTRANASAL DAILY Patient Comments: SPRAY 2 SPRAYS INTO EACH NOSTRIL EVERY DAY omeprazole 20 mg capsule,delayed release(DR/EC) 20 mg PO DAILY cetirizine [24Hour Allergy] 10 mg tablet 10 mg PO DAILY Referrals / Follow Up: Tejas Genao MD [Med Staff - Active Staff] - (Please call our office to follow-up 2 weeks from your surgery) Giuseppe Sheets MD [Primary Care Provider] - Disposition Disposition (needs filled in before D/C Order can be placed): Home, Self Care
--- NOTE | 2023-04-20 07:41 | PCM.DC.SUM ---
Providers Date of Admission: 04/17/23 Primary Care Physician: Dr. Giuseppe Sheets MD Reason For Visit: VENTRAL HERNIA WITH OBSTRUCTION Diagnosis Discharge Diagnosis (1) Ventral hernia with obstruction but no gangrene: Status: Acute Code(s): K43.6 - Other and unspecified ventral hernia with obstruction, without gangrene Medications at Discharge Home Medications lisdexamfetamine 70 mg capsule (Vyvanse) 70 mg PO DAILY 12/03/15 albuterol sulfate 90 mcg/actuation aerosol inhaler 2 puff inhalation Q4H PRN shortness of breath 04/17/23 cetirizine 10 mg tablet (24Hour Allergy) 10 mg PO DAILY allergies 04/17/23 fluticasone propionate 50 mcg/actuation nasal spray,suspension 2 spray intranasal DAILY allergies 04/17/23 hydrochlorothiazide 12.5 mg capsule 12.5 mg PO DAILY HTN 04/17/23 lisinopril 10 mg tablet 10 mg PO DAILY 04/17/23 meloxicam 15 mg tablet 15 mg PO DAILY 04/17/23 omeprazole 20 mg capsule,delayed release 20 mg PO DAILY 04/17/23 sertraline 100 mg tablet 100 mg PO DAILY depression 04/17/23 docusate sodium 100 mg capsule 100 mg PO BID 14 days #28 caps 04/20/23 oxycodone 5 mg tablet 5 mg PO Q6H PRN PRN Pain Score 4-10 10 days #30 tabs 04/20/23 Hospital Course Operations herniorrhaphy (Laparoscopic hybrid ventral hernia repair with mesh) Summary of Care Provided Minutes Spent on Discharge: 25 Hospital Course: Patient is a 37 y/o M who came to the ED with acute onset of abdominal pain, nausea, and vomiting. Patient had a known ventral hernia. A CT scan was obtained demonstrating dilated fluid-filled loops of bowel consistent with mechanical obstruction. Umbilical hernia was also noted containing a loop of bowel which appeared to be the point of obstruction. Dr. Genao performed a Laparoscopic hybrid ventral hernia repair with mesh on 04/19/23. Patient tolerated the procedure well. Patient had an uneventful hospitalization. Upon discharge, he denies nausea, vomiting, fever. He is tolerating a regular diet. He notes a moderate amount of abdominal pain/discomfort with positional movement. He is able to urinate well. He voices readiness to be discharged to home. Physical Exam Const alert, oriented x3 and no apparent distress GI GI Narrative: Abdomen- incisions intact. At the umbilical incision there appears to be minimal amount of bright red bloody drainage. The dressing was changed. Dry gauze and tape were applied to the incision. Abdomen is soft. Tenderness at the incision sites. Discomfort throughout the entire abdomen Inspection: central obesity Medical Records Data Medical Nutrition Assessment Dietitian: Malnutrition Criteria Met Start: 04/19/23 13:20 Freq: Status: Active Protocol: Document 04/19/23 13:20 SLA (Rec: 04/19/23 13:20 SLA Desktop) Nutrition Malnutrition Evidence of Malnutrition Exists Yes Malnutrition (severe): Acute Illness/Injury Evidenced By Suboptimal Energy Intake ( Severe),Weight Loss (Severe) Clinical Problem Acute Disease or Injury Related Malnutrition Etiology related to issues w/ abd pain, nausea and vomiting causing inadequate energy intake Signs/Symptoms as evidenced by 2.6% unplanned wt loss and po intake meeting <75% 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 Problem Recommendation Dietitian Recommendations/Changes As medically able, rec CRISTELA to Regular No Added Salt d/t pmhx Weight / BMI Weight Weight: 380 lb 15.34 oz Body Mass Index (BMI) 48.9 ABG / Lab / Microbiology Data 04/19/23 10:40 04/19/23 10:40 Laboratory: Laboratory Results - last 24 hr 04/19/23 10:40: WBC 9.4, RBC 5.63, Hgb 14.9, Hct 45.7, MCV 81.2, MCH 26.5 L, MCHC 32.6 D, RDW Std Deviation 45.7 H, RDW Coeff of Kiet 15.5 H, Plt Count 153, MPV 9.6, Immature Gran % (Auto) 0.200, Neut % (Auto) 72.2 H, Lymph % (Auto) 9.4 L, [place] % (Auto) 14.7 H, Eos % (Auto) 3.1, Baso % (Auto) 0.4, Absolute Neuts (auto) 6.8, Absolute Lymphs (auto) 0.88, Nucleated RBC % 0, Sodium 141, Potassium 3.3 L, Chloride 107, Carbon Dioxide 28.0, Anion Gap 6, BUN 20 H, Creatinine 0.71, Estim Creat Clear Calc 168.84, Est GFR (MDRD) Af Amer 163, Est GFR (MDRD) Non-Af 135, BUN/Creatinine Ratio 28.3 H, Glucose 123 H, Calcium 8.0 L D/C Instructions Discharge Diet: Light diet - advance as tolerated Call your doctor if your incision/area has: Continuous Slow Oozing, Sudden Increased Bleeding, Increased Pain/ Swelling, Increased Redness, Foul Smelling Discharge and Swelling at the incision site Call your doctor if you observe: Fever of 101 or Higher Suture Line Care: Avoid Pulling/Pushing and Avoid Pinching/Bending Cleanse incision/area with: Soap & Water Please Follow Up With: Tejas Genao MD When: Please call our office to schedule an appointment for 2 weeks from your surgery date. Our office number is [phone] Meaningful Use Info Meaningful Use Diagnoses (Choose all that apply): None applicable Discharge Plan Admission Admit Date/Time: 04/17/23 16:45 Primary Reason for Your Visit: Incarcerated ventral umbilical hernia with obstruction Attending Provider: Tejas Genao Primary Care Provider: Giuseppe Sheets Instructions Additional Instructions / Restrictions: Diet ? Start light with soups and soft bland foods. You may advance diet as tolerated. Activity ? You may drive in 3-5 days but not while taking narcotic pain medication. ? Encourage walking. You may go up steps, one at a time. ? Do not swim or use hot tubs for 2 weeks. ? For comfort, you may use warm compresses or ice as needed for 15-20 minutes at a time. . You will need to brace your abdomen, with your arms or a pillow, when you go to cough or sneeze. This will cause some discomfort. Lifting ? You may lift up to 15 pounds for 4 weeks. Dressings/Incision ? You may shower OVER your plastic dressings ? Do NOT tub bathe for 1 week . You will need to change the dressing at the belly button incision daily ? Leave other plastic dressings on for 3 days. ? When plastic dressings are removed, you will find steri strips. It is okay to continue showering with them in place, pat them dry. ? You may remove steri-strips after 1 week. We recommend getting them soaking wet for easier removal. Medications ? Anesthesia used during surgery and pain medications may cause constipation. I recommend initiating on the day of surgery a fiber supplement like, Metamucil, Citrucel, FiberCon, Benefiber, or a generic form of these medications. 1 heaping tablespoon in water daily. You may continue to utilize any bowel regimen or oral laxatives that you routinely take. ? As long as you are not intolerant to Tylenol, acetaminophen, ibuprofen, Motrin, Advil, Aleve, or similar medications, I would recommend transitioning to these [id number] medicines as soon as possible instead of continued use of narcotic pain medication. Follow up ? You should call [facility] soon after surgery, at [phone] option 1 to make a follow up appointment 2 weeks after your surgery. You will direct any [place] paperwork or other work-related paperwork to our office. Discharge Orders/Prescriptions Prescriptions: New docusate sodium 100 mg Capsule 100 mg PO BID 14 Days Qty: 28 0RF oxycodone 5 mg Tablet 5 mg PO Q6H PRN PRN (Reason: Pain Score 4-10) 10 Days Qty: 30 0RF Continued lisdexamfetamine [Vyvanse] 70 MG capsule 70 mg PO DAILY meloxicam 15 mg tablet 15 mg PO DAILY Patient Comments: TAKE 1 TABLET BY MOUTH ONCE DAILY. TAKE WITH FOOD. sertraline 100 mg tablet 100 mg PO DAILY lisinopril 10 mg tablet 10 mg PO DAILY Patient Comments: TAKE 1 TABLET BY MOUTH EVERY DAY hydrochlorothiazide 12.5 mg capsule 12.5 mg PO DAILY albuterol sulfate 90 mcg/actuation HFA aerosol inhaler 2 puff INHALATION Q4H PRN (Reason: shortness of breath) Patient Comments: INHALE 2 PUFFS BY MOUTH EVERY 6 HOURS NEEDED DIRECTED fluticasone propionate 50 mcg/actuation spray,suspension 2 spray INTRANASAL DAILY Patient Comments: SPRAY 2 SPRAYS INTO EACH NOSTRIL EVERY DAY omeprazole 20 mg capsule,delayed release(DR/EC) 20 mg PO DAILY cetirizine [24Hour Allergy] 10 mg tablet 10 mg PO DAILY Referrals / Follow Up: Tejas Genao MD [Med Staff - Active Staff] - (Please call our office to follow-up 2 weeks from your surgery) Giuseppe Sheets MD [Primary Care Provider] - Disposition Disposition (needs filled in before D/C Order can be placed): Home, Self Care
[2023-04-20 07:49] VITALS: BP 152/80; PULSE 97; RESP 18; TEMP 37.1; O2SAT 93
[2023-04-20 08:30] VITALS: RESP 18
--- NOTE | 2023-04-20 09:08 | PCM.PN.SRG ---
Subjective Subjective Patient seems to be comfortable. He is tolerating a diet. Objective Data Objective Data Vital Signs: Vital Signs Temp Pulse Resp BP Pulse Ox O2 Del Method O2 Flow Rate 98.8 F 97 18 152/80 H 93 Room Air 2 04/20/23 07:49 04/20/23 07:49 04/20/23 08:30 04/20/23 07:49 04/20/23 07:49 04/20/23 07:49 04/20/23 05:17 Oxygen Flow Rate (L/min) 2 Oxygen Delivery Method Room Air Weight: 380 lb 15.34 oz Body Mass Index (BMI) 48.9 Intake & Output: Intake and Output for Last 24 Hours 04/18/23 04/19/23 04/20/23 23:59 23:59 23:59 Intake Total 3408 / 3658 1258.5 / 1258.5 Output Total 250 / 250 Balance 3408 / 3658 1008.5 / 1008.5 Medical Nutrition Assessment Dietitian: Malnutrition Criteria Met Start: 04/19/23 13:20 Freq: Status: Active Protocol: Document 04/19/23 13:20 SLA (Rec: 04/19/23 13:20 SLA Desktop) Nutrition Malnutrition Evidence of Malnutrition Exists Yes Malnutrition (severe): Acute Illness/Injury Evidenced By Suboptimal Energy Intake ( Severe),Weight Loss (Severe) Clinical Problem Acute Disease or Injury Related Malnutrition Etiology related to issues w/ abd pain, nausea and vomiting causing inadequate energy intake Signs/Symptoms as evidenced by 2.6% unplanned wt loss and po intake 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8, Absolute Lymphs (auto) 0.88, Nucleated RBC % 0, Sodium 141, Potassium 3.3 L, Chloride 107, Carbon Dioxide 28.0, Anion Gap 6, BUN 20 H, Creatinine 0.71, Estim Creat Clear Calc 168.84, Est GFR (MDRD) Af Amer 163, Est GFR (MDRD) Non-Af 135, BUN/Creatinine Ratio 28.3 H, Glucose 123 H, Calcium 8.0 L Physical Exam Const oriented x3 and no apparent distress Resp normal respiratory effort GI soft to palpation Palpation: tender Assessment & Plan Assessment/Plan (1) Ventral hernia with obstruction but no gangrene: PLAN: Patient had ventral hernia repair with mesh yesterday. He is tolerating a diet. He may go home today. Tejas Genao MD Pager: [facility] [address] [place] [address] [address] [place] [address] Office:
--- NOTE | 2023-04-20 09:23 | CASEMGMT ---
Addendum entered by Muna Marx 04/20/23 10:45: Referral sent to [facility] via [facility] for FWW. Original Note: JOSE LUIS CRUZ Assessment: Face to Face with pt for initial transition planning/care coordination assessment. JOSE LUIS CRUZ introduced self and role at [facility], pt voices understanding and consents to assessment. Pt is A/O x4 and answers all questions appropriately at this time. Pt standing, just finished in the bathroom. Pt using a walker and requests one for home. Care providers, pharmacy, and demographics verified/updated. Admitting Dx: ventral hernia with obstruction PCP:Kortney Specialists:Denies Preferred Pharmacy:[facility] Insurance: [employer] Prescription Benefit: yes LNOK: Mary Worthington, mother Living Arrangements: Pt lives with mother, grandmother and sister in a single story home with 4 steps to enter. Pt reports prior to this hospitalization he was I in ADL's. Pt denies concerns at home. Transportation: Pt does not drive. Pt mother or grandmother transports him to medical appts. DME/HHC/SNF: Pt denies having any DME, previous HHC or SNF stays. Pt states no concerns with going home at time of dc. Pt states he does need a walker at home. Provided pt with a local in network list of DME companies, pt denies preference. Pt states no further concerns/needs. CM to follow. Advised pt to ask CM if any further question/concerns/needs arise, voices understanding. Pt Goal: Home with FWW Plan: Home with FWW
--- NOTE | 2023-04-20 10:48 | PHA.DC_ITS ---
Pharmacy [facility] Pharm[facility] Service has performed discharge medication reconciliation and counseling for this patient. The patient was counseled on the following discharge medications and changes in medications for homegoing were reviewed. 1. DOCUSATE 2. OXYCODONE The Reason for Use, instructions for use, and potential side effects were reviewed for all new medications. The patient's questions regarding all of their medications were answered. The patient demonstrated some understanding but would benefit from further education and reinforcement. The patient's discharge medication list was reviewed for discrepancies and discrepancies were resolved. Medications at Discharge Home Medications lisdexamfetamine 70 mg capsule (Vyvanse) 70 mg PO DAILY 12/03/15 albuterol sulfate 90 mcg/actuation aerosol inhaler 2 puff inhalation Q4H PRN shortness of breath 04/17/23 cetirizine 10 mg tablet (24Hour Allergy) 10 mg PO DAILY allergies 04/17/23 fluticasone propionate 50 mcg/actuation nasal spray,suspension 2 spray intranasal DAILY allergies 04/17/23 hydrochlorothiazide 12.5 mg capsule 12.5 mg PO DAILY HTN 04/17/23 lisinopril 10 mg tablet 10 mg PO DAILY 04/17/23 meloxicam 15 mg tablet 15 mg PO DAILY 04/17/23 omeprazole 20 mg capsule,delayed release 20 mg PO DAILY 04/17/23 sertraline 100 mg tablet 100 mg PO DAILY depression 04/17/23 docusate sodium 100 mg capsule 100 mg PO BID 14 days #28 caps 04/20/23 oxycodone 5 mg tablet 5 mg PO Q6H PRN PRN Pain Score 4-10 10 days #30 tabs 04/20/23
[2023-04-20] MEDS: Sertraline 100 MG Tablet PO (11:28)
[2023-04-20] MEDS: Fluticasone 0.05% 1 SPRAY NASAL.SRY 2 SPRAY NASAL (11:28)
[2023-04-20] MEDS: Meloxicam 15 MG Tablet PO (11:29)
[2023-04-20] MEDS: hydroCHLOROthiazide 12.5mg 12.5 MG PO (11:29)
[2023-04-20] MEDS: Pantoprazole Sodium 20 MG Tablet PO (11:29)
[2023-04-20] MEDS: Loratadine 10 MG Tablet PO (11:29)
[2023-04-20] MEDS: Lisinopril 10 MG Tablet PO (11:29)
[2023-04-20] MEDS: Docusate Sodium 100 MG Capsule PO (11:32)
[2023-04-20 12:54] VITALS: BP 141/80; PULSE 94; RESP 18; TEMP 36.8; O2SAT 97
== END 2023-04-20 13:18 | disposition home or self-care (01) | DRG 355 ==
LOC: ED 15:11 → MS3 17:09
PROVIDERS: Physician Assistant; Admitting Provider Surgery; Emergency Provider Emergency Medicine; PCP Family Medicine; Visit Provider Surgery
PROC: 0WQF4ZZ Repair Abdominal Wall, Percutaneous Endoscopic Approach (ICD-10-PCS; principal; 2023-04-19 15:00)
DX: K43.6 Other and unspecified ventral hernia with obstruction, without gangrene (principal); F41.9 Anxiety disorder, unspecified; I10 Essential (primary) hypertension; Z87.891 Personal history of nicotine dependence
CPT/HCPCS: 36415; 74177; 80048; 80053; 81001; 83605; 83690; 85025; 88302; 93005; 99283; J7030; J7120; Q9967; A4216; J2405

== ENCOUNTER 2023-04-21 02:33 | Inpatient (IN) | payer BC, SELFPAY ==
[2023-04-21] VITALS (12 sets, daily range): BP systolic 117–159; BP diastolic 78–94; PULSE 100–126; RESP 16–22; TEMP 36.3–37.7; O2SAT 91–96; BMI 40.6
--- NOTE | 2023-04-21 02:47 | CT_ITS ---
INDICATION: Pain nausea vomit A radiation dose optimization technique was used for this scan. Radiation CTDIvol 28.64 Radiation DLP 2084.99 COMPARISON: Abdominal CT 04/17/2023. IV Contrast dosage and agent: 100mL Isovue-370 IV. FINDINGS: Contrast enhanced serial CT axial images through the abdomen and pelvis with coronal and sagittal reformatted series. APPENDIX: Normal caliber gas containing appendix. ABDOMINAL WALL: There is extensive soft tissue gas of the left anterior abdominal wall, which appears to remain extraperitoneal, although of uncertain source. There is however rounded gas containing rim enhancing umbilical 4 cm fluid collection, which may represent abscess. Inflammatory change extends to the underlying anterior mesentery. PANCREAS: No peripancreatic fat stranding. BOWEL/MESENTERY: Multiple dilated small bowel loops containing air-fluid levels consistent with small bowel obstruction. Anterior right paramidline small bowel transition point with significant bowel wall thickening in this region. In addition, there appear to be dependent tiny foci of gas within the small bowel wall, most notably on axial images 58, 62, 77, 78, and 85 of series 2 concerning for pneumatosis. No significant free fluid. No free air. Few colonic diverticula without focus of diverticulitis. GALLBLADDER: No pericholecystic fat stranding. LIVER/STOMACH: No obvious abnormality. URINARY COLLECTING SYSTEM/ KIDNEYS: No obstructing ureteral calculus. No significant renal parenchymal abnormality. LUNG BASES: Dense patchy left lower lobe airspace disease, to include pneumonia.. BONES: Unremarkable for age. CT/Abdomen/Pelvis W IV Cont ONLY IMPRESSION: Small bowel obstruction as above with pneumatosis. Bowel ischemia is not excluded. Extensive soft tissue gas of the left anterior abdominal wall, which appears to remain extraperitoneal, although of uncertain source. (Additional history provided, patient is postoperative from recent hernia repair, likely accounting for abdominal wall gas. Wednesday pt had hernia sx with mesh, released yesterday and today unable to keep food down with pain). Critical finding results discussed with Dr. Lynn at 0352 hours eastern time 04/21/2023. However, there is rounded gas containing rim enhancing umbilical 4 cm fluid collection, which may represent abscess versus seroma in this postoperative patient. Inflammatory change extends to the underlying anterior mesentery. Dense patchy left lower lobe airspace disease, to include pneumonia. N.B. : The above Results were Read Back by Tejas Mcdermott MD to Rj Lynn MD, and understanding confirmed on 04/21/2023 03:53:58 (ET). Electronically Signed: Tejas Mcdermott MD at 3:59 EDT ,
--- NOTE | 2023-04-21 02:52 | EX.ED.DYSGE1 ---
HPI History of Present Illness Chief Complaint: Nausea/Vomiting Informant: patient and family Narrative Narrative: Presents with nausea vomiting and some abdominal discomfort. Patient was recently admitted for nausea vomiting thought to be related to eating fair food. However, he had an umbilical hernia on exam. This was able to be reduced in the emergency department and he was feeling better. But his scan showed concern for obstruction with transition point near the hernia. He was admitted. He had surgery on Wednesday para the hernia. After that he did eat and drink. He was moving his bowels. But he was getting Zofran. He went home and he states ever since being at home he has nausea and vomiting. He could not keep the Zofran down. He has felt hot but no fever. He states he has some discomfort but it is more generalized in the abdomen and not focal. He is not having chest pain or trouble breathing. He has not moved his bowels since being at home. He is not passing gas right now. He states he does hear/feel borborygmi usually right before vomiting but not at other times. [facility] Medical History (Updated 04/21/23 @ 05:[address] Rj Lynn MD) Anxiety Depression Former smoker Hypertension Non-smoker Umbilical hernia Home Medications lisdexamfetamine 70 mg capsule (Vyvanse) 70 mg PO DAILY 12/03/15 [History Last Taken Unknown] albuterol sulfate 90 mcg/actuation aerosol inhaler 2 puff inhalation Q4H PRN shortness of breath 04/17/23 [History Last Taken Unknown] cetirizine 10 mg tablet (24Hour Allergy) 10 mg PO DAILY allergies 04/17/23 [History Last Taken Unknown] fluticasone propionate 50 mcg/actuation nasal spray,suspension 2 spray intranasal DAILY allergies 04/17/23 [History Last Taken Unknown] hydrochlorothiazide 12.5 mg capsule 12.5 mg PO DAILY HTN 04/17/23 [History Last Taken Unknown] lisinopril 10 mg tablet 10 mg PO DAILY 04/17/23 [History Last Taken Unknown] meloxicam 15 mg tablet 15 mg PO DAILY 04/17/23 [History Last Taken Unknown] omeprazole 20 mg capsule,delayed release 20 mg PO DAILY 04/17/23 [History Last Taken Unknown] sertraline 100 mg tablet 100 mg PO DAILY depression 04/17/23 [History Last Taken Unknown] docusate sodium 100 mg capsule 100 mg PO BID 14 days #28 caps 04/20/23 [Rx Last Taken Unknown] oxycodone 5 mg tablet 5 mg PO Q6H PRN PRN Pain Score 4-10 10 days #30 tabs 04/20/23 [Rx Last Taken Unknown] Allergy/AdvReac Type Severity Reaction Status Date / Time latex Allergy Rash Verified 04/21/23 02:36 Surgical History (Updated 04/21/23 @ 05:[address] Rj Lynn MD) History of umbilical hernia repair Social History Smoking Status: Former smoker ROS ROS ED ROS Narrative A complete review of systems was performed and is negative except as documented in the history of present illness. Some specific details below. Constitutional: No recent fevers that was measured but he has felt chilled at times. EYE: No visual complaints or pain. ENT: No difficulty swallowing. No swelling. No pain. GERD. CV: No chest pain or palpitations. Respiratory: No dyspnea. No hemoptysis. No difficulty taking breaths. GI: Please see history of present illness. : No frequency dysuria or hematuria. Still urinating normally. Musculoskeletal: No recent trauma. No pains. Skin: No rash. Nondiaphoretic. Neuro: No weakness or numbness. Endocrine: No polyuria or polydipsia. EXAM Physical Exam Narrative Exam Narrative: CONSTITUTIONAL: Patient is nontoxic in appearance. The patient looks comfortable. HEENT: No notable trauma. Mucous membranes are still moist. EYES: No conjunctival injection. No icterus noted. CARDIOVASCULAR: Regular rate. Regular rhythm. No notable murmur. No JVD. He was initially tachycardic but his rate sounds to be in the mid 90s now. RESPIRATORY: No respiratory distress. Breathing is unlabored. No wheezes. No rhonchi. No rales. No pain with a deep breath. GASTROINTESTINAL: Abdomen is obese. It is hard to tell if this is distention. His incisions and port sites look good including the umbilical area. I feel no fullness. But his bowel sounds are very quiet. I am not hearing any while I am listening for a while. I am getting very mild diffuse nonlocalized tenderness. No rebound or guarding. GENITOURINARY: No tenderness over the bladder. No CVA tenderness. MUSCULOSKELETAL: Atraumatic. NEUROLOGICAL: Patient is alert and appropriate. No focal deficit noted. SKIN: No noted rashes. No diaphoresis. PSYCHIATRIC: Patient is calm. Mood is appropriate. Const Vital Signs: 04/21/23 02:36 Temperature 97.6 F L Temperature Source Temporal Pulse Rate 120 H Blood Pressure 158/89 H Blood Pressure Mean 112 Pulse Ox 92 Oxygen Delivery Method Room Air MDM MDM MDM Narrative Medical decision making narrative: Patient CBC shows a mild elevation of his white count but normal platelets. Patient's electrolytes show minimally low sodium. Glucose is mildly up at 162. No signs of significant dehydration. Patient's liver function test are not showing marked abnormalities. Minimal total bili patient. Lipase is normal at 59. My independent her potation of the CAT scan does shows postsurgical changes in the small bowel obstruction. Radiology does make note of some air in the abdominal wall most likely postoperative and some suspicion of some small foci of air in the small bowel loops. Lactate was added. Lactic acid level is normal at 1.0 Patient was rechecked. His nausea is better but it was still ongoing. He was given Phenergan. We are pending lactate level which will be reported above. Patient's heart rate is now down to about 70 on the monitor after IV fluids. Patient CT did show some increased markings in the left base but he denies being short of breath or coughing. He has no chest pain or tightness. All the symptoms are nausea vomiting. He states he gets some discomfort in his abdomen right before he vomits. Discussed case with Dr. Badillo this morning. Plan will be admit the patient. He did request an NG which order was placed. He will notify Dr. Genao of the patient's admission this morning. Clinically I doubt this fluid collection in the umbilicus is an abscess. This would be very fast to develop this. I think this is more likely seroma. I am not seeing strong indication for antibiotics. Also, his CT is showing bowel obstruction. But his bowels are very quiet and there certainly may be is component of ileus postoperative also. Lab Data Attestation: I reviewed the patient's lab results. Labs: Laboratory Results - last 24 hr 04/21/23 04/21/23 02:55 04:18 WBC 13.1 H RBC 6.25 H Hgb 16.2 Hct 49.9 MCV 79.8 L MCH 25.9 L MCHC 32.5 RDW Std Deviation 43.9 RDW Coeff of Kiet 16.1 H Plt Count 204 MPV 10.7 Immature Gran % (Auto) 0.700 Neut % (Auto) 81.3 H Lymph % (Auto) 7.3 L Chambers % (Auto) 10.1 H Eos % (Auto) 0.1 Baso % (Auto) 0.5 Absolute Neuts (auto) 10.6 H Absolute Lymphs (auto) 0.95 Nucleated RBC % 0 Sodium 134 L Potassium 3.7 Chloride 99 Carbon Dioxide 29.0 Anion Gap 6 BUN 18 Creatinine 1.03 Estim Creat Clear Calc 116.38 Est GFR (MDRD) Af Amer 105 Est GFR (MDRD) Non-Af 87 BUN/Creatinine Ratio 17.5 Glucose 162 H Lactic Acid 1.0 Calcium 8.8 Total Bilirubin 1.10 H AST 16 ALT 44 Alkaline Phosphatase 75 Total Protein 8.0 Albumin 3.6 Globulin 4.4 H Albumin/Globulin Ratio 0.8 L Lipase 59 Radiography Diagnostic Testing: Clinical Impression(s) from Imaging Studies Abdomen/Pelvis CT 04/21/23 02:47 IMPRESSION: Small bowel obstruction as above with pneumatosis. Bowel ischemia is not excluded. Extensive soft tissue gas of the left anterior abdominal wall, which appears to remain extraperitoneal, although of uncertain source. (Additional history provided, patient is postoperative from recent hernia repair, likely accounting for abdominal wall gas. Wednesday pt had hernia sx with mesh, released yesterday and today unable to keep food down with pain). Critical finding results discussed with Dr. Lynn at 0352 hours eastern time 04/21/2023. However, there is rounded gas containing rim enhancing umbilical 4 cm fluid collection, which may represent abscess versus seroma in this postoperative patient. Inflammatory change extends to the underlying anterior mesentery. Dense patchy left lower lobe airspace disease, to include pneumonia. N.B. : The above Results were Read Back by Tejas Mcdermott MD to Rj Lynn MD, and understanding confirmed on 04/21/2023 03:53:58 (ET). Electronically Signed: Tejas Mcdermott MD at 3:59 EDT , ADDENDUM: 04/21/23 0406 IMPRESSION: Small bowel obstruction as above with pneumatosis. Bowel ischemia is not excluded. Extensive soft tissue gas of the left anterior abdominal wall, which appears to remain extraperitoneal, although of uncertain source. (Additional history provided, patient is postoperative from recent hernia repair, likely accounting for abdominal wall gas. Jaren pt had hernia sx with mesh, released yesterday and today unable to keep food down with pain). Critical finding results discussed with Dr. Lynn at 0352 hours eastern time 04/21/2023. However, there is rounded gas containing rim enhancing umbilical 4 cm fluid collection, which may represent abscess versus seroma in this postoperative patient. Inflammatory change extends to the underlying anterior mesentery. Dense patchy left lower lobe airspace disease, to include pneumonia. N.B. : The above Results were Read Back by Tejas Mcdermott MD to Rj Lynn MD, and understanding confirmed on 04/21/2023 03:53:58 (ET). Electronically Signed: Tejas Mcdermott MD at 3:59 EDT , EKG Initial EKG: Comments: Plan amended interpretation the patient's EKG shows sinus rhythm with tachycardic rate at 116. I do not see signs of ventricular ectopy. This is a right bundle branch block pattern. There is also slight left anterior fascicular block. No acute ST elevation or depression but there are diffuse changes related to his bundle branch blocks. DC interval is normal. QRS duration and QTc are a bit long. I looked on our system and do not find prior EKG available. Management Discussion w/another healthcare provider: [employer] Discharge Plan Triage Chief Complaint: Nausea/Vomiting ED Provider: Rj Lynn Dx/Rx/DC Orders Clinical Impression: History of umbilical hernia repair, Leukocytosis, Small bowel obstruction, Post-operative nausea and vomiting Prescriptions: No Action lisdexamfetamine [Vyvanse] 70 MG capsule 70 mg PO DAILY meloxicam 15 mg tablet 15 mg PO DAILY Patient Comments: TAKE 1 TABLET BY MOUTH ONCE DAILY. TAKE WITH FOOD. sertraline 100 mg tablet 100 mg PO DAILY lisinopril 10 mg tablet 10 mg PO DAILY Patient Comments: TAKE 1 TABLET BY MOUTH EVERY DAY hydrochlorothiazide 12.5 mg capsule 12.5 mg PO DAILY albuterol sulfate 90 mcg/actuation HFA aerosol inhaler 2 puff INHALATION Q4H PRN (Reason: shortness of breath) Patient Comments: INHALE 2 PUFFS BY MOUTH EVERY 6 HOURS NEEDED DIRECTED fluticasone propionate 50 mcg/actuation spray,suspension 2 spray INTRANASAL DAILY Patient Comments: SPRAY 2 SPRAYS INTO EACH NOSTRIL EVERY DAY omeprazole 20 mg capsule,delayed release(DR/EC) 20 mg PO DAILY cetirizine [24Hour Allergy] 10 mg tablet 10 mg PO DAILY docusate sodium 100 mg Capsule 100 mg PO BID 14 Days Qty: 28 0RF oxycodone 5 mg Tablet 5 mg PO Q6H PRN PRN (Reason: Pain Score 4-10) 10 Days Qty: 30 0RF Primary Care Provider: Giuseppe Sheets Referrals: Giuseppe Sheets MD [Primary Care Provider] - Disposition Disposition: Acute Care Hospital [facility]
--- NOTE | 2023-04-21 02:55 | EKG12_ITS ---
Test Reason : Blood Pressure : / mmHG Vent. Rate : 116 BPM Atrial Rate : 116 BPM P-R Int : 124 ms QRS Dur : 144 ms QT Int : 368 ms P-R-T Axes : 027 -85 030 degrees QTc Int : 511 ms Sinus tachycardia Right bundle branch block Left anterior fascicular block Bifascicular block Minimal voltage criteria for LVH, may be normal variant ( R in aVL ) Abnormal ECG Confirmed by DARCY ELIZABETH, INÉS ([id number]), city editor JULIO LIZ ([id number]) on 04/26/2023 2:07:58 PM Referred By: Confirmed By:MADALYN TAVERAS MD
[2023-04-21] MEDS: 0.9% Normal Saline (1000mL) 1,000 ML 1000 ML IV (02:56)
[2023-04-21] MEDS: Ondansetron 4 MG/2 ML Vial IV ×2 (02:56→19:09)
[2023-04-21 02:58] LABS: Absolute Lymphocyte Count 0.95 X10^3/uL (0.83-4.51); Absolute Neutrophil Count 10.6 X10^3/uL (2.0-7.7); Basophil# 0.07 X10^3/uL; Basophil% 0.5 % (0-1); Eosinophil# 0.01 X10^3/uL; Eosinophils% 0.1 % (0-5); Hematocrit 49.9 % (40-54); Hemoglobin 16.2 g/dL (13.0-16.5); Lymphocyte # 0.95 X10^3/ul (0.83-4.51); Lymphocyte % 7.3 % (19-41); Mean Corp Hgb Conc 32.5 g/dL (32-36); Mean Corpuscular Hgb 25.9 pg (27.0-32.0); Mean Corpuscular Volume 79.8 fL (80-94); Mean Platelet Vol. 10.7 fl (6.2-12.0); Monocyte# 1.32 X10^3/uL; Monocyte% 10.1 % (0-10); NRBC Flagged by Analyzer 0 % (0-5); Neutrophil # 10.63 X10^3/uL (2.7-7.7); Neutrophil % 81.3 % (47-70); Platelet Count 204 K/mm3 (150-450); RBC Distribution Width CV 16.1 % (11.6-14.6); RBC Distribution Width SD 43.9 fl (35.1-43.9); Red Blood Count 6.25 M/mm3 (4.6-6.2); White Blood Count 13.1 K/mm3 (4.4-11.0)
[2023-04-21 03:32] LABS: ALB/GLOB Ratio 0.8 RATIO (0.9-2.4); AST(SGOT) 16 U/L (15-37); Alanine Aminotransfer ALT/SGPT 44 U/L (16-61); Albumin, Serum 3.6 g/dL (3.2-5.0); Alkaline Phosphatase 75 U/L (45-117); Anion Gap 6 (5-15); BUN 18 mg/dL (7-18); BUN/Creat Ratio 17.5 RATIO (10-20); Calcium,Total 8.8 mg/dL (8.5-10.1); Chloride 99 mmol/L (98-107); Creatinine, Serum 1.03 mg/dL (0.70-1.30); EST Glomerular Filtration Rate 87 mL/min (>60); Est Glom Filt Rate - Afr Amer 105 mL/min (>60); Estimated Creatinine Clearance 116.38 ml/min; Globulin 4.4 g/dL (2.2-4.2); Glucose 162 mg/dL (74-106); Lipase 59 U/L (13-75); Potassium 3.7 mmol/L (3.5-5.1); Sodium Level 134 mmol/L (136-145)
[2023-04-21] MEDS: proMETHazine 25 MG/ML Syringe 12.5 MG IM (04:26)
--- NOTE | 2023-04-21 05:12 | RAD_ITS ---
INDICATION: NG Tube placement -- KUB with both diaphragms for NG/OG Verification COMPARISON: Abdominal CT same day. FINDINGS: Single frontal view of the upper abdomen. Enteric tube tip coils over left upper quadrant gastric lucency, likely proximal stomach. Partially imaged dilated small bowel loops, consistent with known bowel obstruction. No obvious free air. No definite suspicious calcifications. No mass appreciated. Again noted left lung base airspace disease. RAD/Abdomen Single View (Portable) IMPRESSION: Enteric tube tip coils over left upper quadrant gastric lucency, likely proximal stomach. Again noted left lung base airspace disease. Partially imaged dilated small bowel loops, consistent with known bowel obstruction. Electronically Signed: Tejas Mcdermott MD at 7:17 EDT ,
[2023-04-21] MEDS: Oxymetazoline 0.05% 1 SPRAY SPRAY.BTL 2 SPRAY NASAL (05:54)
--- NOTE | 2023-04-21 06:03 | PCM.HP.STD ---
HPI - General General Date of Admission: 04/21/23 Chief Complaint: Postoperative nausea, vomiting, and abdominal pain HPI Narrative ALEXANDRU MYERS, is a 37 M who presents to [facility] with complaints of nausea, vomiting, and abdominal pain following laparoscopic umbilical hernia repair with mesh on 04/19/[address] Genao. Patient reports that upon arriving home after hospital discharge yesterday he began experiencing the nausea and vomiting that in turn produced significant abdominal pain at his surgical site. He states that he had tolerated some food during his inpatient stay. He describes his abdominal discomfort as diffuse. Given the symptoms so short after surgery he decided to seek further evaluation. ER evaluation notable for CBC with mild leukocytosis and CT showing possible small bowel obstruction as well as some air tracking along the left rectus and some fluid within patient's prior umbilical hernia defect. [facility] Medical History (Updated 04/21/23 @ 05:[address] Rj Lynn MD) Anxiety Depression Former smoker Hypertension Non-smoker Umbilical hernia Home Medications lisdexamfetamine 70 mg capsule (Vyvanse) 70 mg PO DAILY 12/03/15 [History Last Taken Unknown] albuterol sulfate 90 mcg/actuation aerosol inhaler 2 puff inhalation Q4H PRN shortness of breath 04/17/23 [History Last Taken Unknown] cetirizine 10 mg tablet (24Hour Allergy) 10 mg PO DAILY allergies 04/17/23 [History Last Taken Unknown] fluticasone propionate 50 mcg/actuation nasal spray,suspension 2 spray intranasal DAILY allergies 04/17/23 [History Last Taken Unknown] hydrochlorothiazide 12.5 mg capsule 12.5 mg PO DAILY HTN 04/17/23 [History Last Taken Unknown] lisinopril 10 mg tablet 10 mg PO DAILY 04/17/23 [History Last Taken Unknown] meloxicam 15 mg tablet 15 mg PO DAILY 04/17/23 [History Last Taken Unknown] omeprazole 20 mg capsule,delayed release 20 mg PO DAILY 04/17/23 [History Last Taken Unknown] sertraline 100 mg tablet 100 mg PO DAILY depression 04/17/23 [History Last Taken Unknown] docusate sodium 100 mg capsule 100 mg PO BID 14 days #28 caps 04/20/23 [Rx Last Taken Unknown] oxycodone 5 mg tablet 5 mg PO Q6H PRN PRN Pain Score 4-10 10 days #30 tabs 04/20/23 [Rx Last Taken Unknown] Allergy/AdvReac Type Severity Reaction Status Date / Time latex Allergy Rash Verified 04/21/23 02:36 Surgical History (Updated 04/21/23 @ 05:[address] Rj Lynn MD) History of umbilical hernia repair Social History Smoking Status: Former smoker ROS Gastrointestinal Gastrointestinal: Reports abdominal pain, nausea and vomiting Vital Signs Vital Signs Vital Signs: 04/21/23 02:36 Temperature 97.6 F L Temperature Source Temporal Pulse Rate 120 H Blood Pressure 158/89 H Blood Pressure Mean 112 Pulse Ox 92 Oxygen Delivery Method Room Air Weight Weight: 316 lb 12.868 oz Body Mass Index (BMI) 40.6 Physical Exam Const alert, oriented x3 and well nourished Constitutional Narrative: Mild distress from abdominal discomfort and anxiety General Appearance: cooperative GI GI Narrative: Obese, surgical incisions covered with operative dressings, distended, diffusely tender to palpation Results Lab / Micro Data 04/21/23 02:55 04/21/23 02:55 Labs: Laboratory Results - last 24 hr 04/21/23 02:55: WBC 13.1 H, RBC 6.25 H, Hgb 16.2, Hct 49.9, MCV 79.8 L, MCH 25.9 L, MCHC 32.5, RDW Std Deviation 43.9, RDW Coeff of Kiet 16.1 H, Plt Count 204, MPV 10.7, Immature Gran % (Auto) 0.700, Neut % (Auto) 81.3 H, Lymph % (Auto) 7.3 L, Chase % (Auto) 10.1 H, Eos % (Auto) 0.1, Baso % (Auto) 0.5, Absolute Neuts (auto) 10.6 H, Absolute Lymphs (auto) 0.95, Nucleated RBC % 0, Sodium 134 L, Potassium 3.7, Chloride 99, Carbon Dioxide 29.0, Anion Gap 6, BUN 18, Creatinine 1.03, Estim Creat Clear Calc 116.38, Est GFR (MDRD) Af Amer 105, Est GFR (MDRD) Non-Af 87, BUN/Creatinine Ratio 17.5, Glucose 162 H, Calcium 8.8, Total Bilirubin 1.10 H, AST 16, ALT 44, Alkaline Phosphatase 75, Total Protein 8.0, Albumin 3.6, Globulin 4.4 H, Albumin/Globulin Ratio 0.8 L, Lipase 59 04/21/23 04:18: Lactic Acid 1.0 Radiology Impression Abdomen/Pelvis CT 04/21/23 02:47 IMPRESSION: Small bowel obstruction as above with pneumatosis. Bowel ischemia is not excluded. Extensive soft tissue gas of the left anterior abdominal wall, which appears to remain extraperitoneal, although of uncertain source. (Additional history provided, patient is postoperative from recent hernia repair, likely accounting for abdominal wall gas. Wednesday pt had hernia sx with mesh, released yesterday and today unable to keep food down with pain). Critical finding results discussed with Dr. Lynn at 0352 hours eastern time 04/21/2023. However, there is rounded gas containing rim enhancing umbilical 4 cm fluid collection, which may represent abscess versus seroma in this postoperative patient. Inflammatory change extends to the underlying anterior mesentery. Dense patchy left lower lobe airspace disease, to include pneumonia. N.B. : The above Results were Read Back by Tejas Mcdermott MD to Rj Lynn MD, and understanding confirmed on 04/21/2023 03:53:58 (ET). Electronically Signed: Tejas Mcdermott MD at 3:59 EDT , ADDENDUM: 04/21/23 0406 IMPRESSION: Small bowel obstruction as above with pneumatosis. Bowel ischemia is not excluded. Extensive soft tissue gas of the left anterior abdominal wall, which appears to remain extraperitoneal, although of uncertain source. (Additional history provided, patient is postoperative from recent hernia repair, likely accounting for abdominal wall gas. Wednesday pt had hernia sx with mesh, released yesterday and today unable to keep food down with pain). Critical finding results discussed with Dr. Lynn at 0352 hours eastern time 04/21/2023. However, there is rounded gas containing rim enhancing umbilical 4 cm fluid collection, which may represent abscess versus seroma in this postoperative patient. Inflammatory change extends to the underlying anterior mesentery. Dense patchy left lower lobe airspace disease, to include pneumonia. N.B. : The above Results were Read Back by Tejas Mcdermott MD to Rj Lynn MD, and understanding confirmed on 04/21/2023 03:53:58 (ET). Electronically Signed: Tejas Mcdermott MD at 3:59 EDT , Assessment & Plan Assessment/Plan (1) Post-operative nausea and vomiting: (2) Small bowel obstruction: (3) History of umbilical hernia repair: PLAN: Plan This is a 37-year-old male 2 days status post laparoscopic umbilical hernia repair with mesh placement by Dr. Genao who presents with signs and symptoms of a postoperative small bowel obstruction. It is noted that patient had a small bowel incarceration that was manually reduced prior to his hernia repair, but the segment of involved bowel was reportedly closely scrutinized at the time of the hernia operation and determined to be viable. Based on patient's exam without peritoneal signs, I believe a conservative course is most appropriate. It is possible he is manifesting a ileus rather than a small bowel obstruction. Regardless, I have requested placement of a nasogastric tube with emergency medicine. Thereafter patient will be admitted to the general surgery service for resuscitative fluids and ongoing management. Dr. Genao will be informed of patient's return. Charges/Coding Visit Charges Inpatient E&M: 96392 Init Hosp L2
[2023-04-21] MEDS: 0.9% Normal Saline (1000mL) 1,000 ML 150 ML IV ×2 (07:00→21:17)
--- NOTE | 2023-04-21 08:39 | PCM.PN.SRG ---
Subjective Subjective Patient reports that he went home and then started throwing up Objective Data Objective Data Vital Signs: Vital Signs Temp Pulse Resp BP Pulse Ox O2 Del Method 99.3 F H 112 H 16 135/87 H 91 Room Air 04/21/23 07:41 04/21/23 07:41 04/21/23 07:41 04/21/23 07:41 04/21/23 07:41 04/21/23 07:41 Oxygen Delivery Method Room Air Weight: 316 lb 12.868 oz Body Mass Index (BMI) 40.6 Intake & Output: Intake and Output for Last 24 Hours 04/19/23 04/20/23 04/21/23 23:59 23:59 23:59 Intake Total 1000 / 1000 Output Total 1000 / 1000 Balance 0 / 0 Lab / Micro Data 04/21/23 02:55 04/21/23 02:55 Labs: Laboratory Results - last 24 hr 04/21/23 02:55: WBC 13.1 H, RBC 6.25 H, Hgb 16.2, Hct 49.9, MCV 79.8 L, MCH 25.9 L, MCHC 32.5, RDW Std Deviation 43.9, RDW Coeff of Kiet 16.1 H, Plt Count 204, MPV 10.7, Immature Gran % (Auto) 0.700, Neut % (Auto) 81.3 H, Lymph % (Auto) 7.3 L, [place] % (Auto) 10.1 H, Eos % (Auto) 0.1, Baso % (Auto) 0.5, Absolute Neuts (auto) 10.6 H, Absolute Lymphs (auto) 0.95, Nucleated RBC % 0, Sodium 134 L, Potassium 3.7, Chloride 99, Carbon Dioxide 29.0, Anion Gap 6, BUN 18, Creatinine 1.03, Estim Creat Clear Calc 116.38, Est GFR (MDRD) Af Amer 105, Est GFR (MDRD) Non-Af 87, BUN/Creatinine Ratio 17.5, Glucose 162 H, Calcium 8.8, Total Bilirubin 1.10 H, AST 16, ALT 44, Alkaline Phosphatase 75, Total Protein 8.0, Albumin 3.6, Globulin 4.4 H, Albumin/Globulin Ratio 0.8 L, Lipase 59 04/21/23 04:18: Lactic Acid 1.0 Radiography Diagnostic Testing: Radiology Impression Abdomen/Pelvis CT 04/21/23 02:47 IMPRESSION: Small bowel obstruction as above with pneumatosis. Bowel ischemia is not excluded. Extensive soft tissue gas of the left anterior abdominal wall, which appears to remain extraperitoneal, although of uncertain source. (Additional history provided, patient is postoperative from recent hernia repair, likely accounting for abdominal wall gas. Wednesday pt had hernia sx with mesh, released yesterday and today unable to keep food down with pain). Critical finding results discussed with Dr. Lynn at 0352 hours eastern time 04/21/2023. However, there is rounded gas containing rim enhancing umbilical 4 cm fluid collection, which may represent abscess versus seroma in this postoperative patient. Inflammatory change extends to the underlying anterior mesentery. Dense patchy left lower lobe airspace disease, to include pneumonia. N.B. : The above Results were Read Back by Tejas Mcdermott MD to Rj Lynn MD, and understanding confirmed on 04/21/2023 03:53:58 (ET). Electronically Signed: Tejas Mcdermott MD at 3:59 EDT , ADDENDUM: 04/21/23 0406 IMPRESSION: Small bowel obstruction as above with pneumatosis. Bowel ischemia is not excluded. Extensive soft tissue gas of the left anterior abdominal wall, which appears to remain extraperitoneal, although of uncertain source. (Additional history provided, patient is postoperative from recent hernia repair, likely accounting for abdominal wall gas. Wednesday pt had hernia sx with mesh, released yesterday and today unable to keep food down with pain). Critical finding results discussed with Dr. Lynn at 0352 hours eastern time 04/21/2023. However, there is rounded gas containing rim enhancing umbilical 4 cm fluid collection, which may represent abscess versus seroma in this postoperative patient. Inflammatory change extends to the underlying anterior mesentery. Dense patchy left lower lobe airspace disease, to include pneumonia. N.B. : The above Results were Read Back by Tejas Mcdermott MD to Rj Lynn MD, and understanding confirmed on 04/21/2023 03:53:58 (ET). Electronically Signed: Tejas Mcdermott MD at 3:59 EDT , KUB X-Ray 04/21/23 05:12 IMPRESSION: Enteric tube tip coils over left upper quadrant gastric lucency, likely proximal stomach. Again noted left lung base airspace disease. Partially imaged dilated small bowel loops, consistent with known bowel obstruction. Electronically Signed: Tejas Mcdermott MD at 7:17 EDT , Physical Exam Const oriented x3 Resp normal respiratory effort Cardio Rate: tachycardic GI soft to palpation Palpation: tender Assessment & Plan Assessment/Plan (1) Small bowel obstruction: PLAN: The patient presents back to the hospital 2 days after ventral hernia repair for an incarcerated small bowel obstructing ventral hernia. At the time of surgery the small bowel was inspected and appeared viable. The patient went home yesterday afternoon and started vomiting. He came back to the emergency room and a CT scan revealed thickened loops of small bowel with a transition point and possible pneumatosis. The white count is elevated and the patient is tachycardic. I will plan to take the patient back to surgery today for exploratory laparoscopy with possible bowel resection to try to resolve the obstruction. I discussed this with him in detail. I discussed the risk of bleeding, infection, need for bowel surgery, need for laparotomy, need for explantation of the mesh with suture repair if there is any spillage of enteric contents. Patient understands the risks and is willing to proceed. I will start him on antibiotics. Tejas Genao MD Pager: [facility] [address] [place] [address], [address] [place] [address] Office:
[2023-04-21] MEDS: Piperacil/Tazobactam 3.375 GM in 0.9% Normal Saline (50mL MB+) 50 ML IV ×3 (09:08→21:17)
--- NOTE | 2023-04-21 14:30 | COL_PTH ---
PATIENT: ALEXANDRU MYERS LOC: [facility]3 U#:[id number] AGE/SX: 37/M ROOM: W[facility]315 RE04/21/[address]: Dr. Tejas Genao MD : 1985 BED: 1 DIS: 04/26/2023 SPEC #: [id number] RECD: 04/22/23 08:15 STATUS: SIOBHAN HENSON #: [id number] UZAIR: 04/21/23 14:[address]: Tejas Genao DEPT: SURGICAL PATHOLOGY RECD BY: Kin Mccormick ENTERED: 04/22/23 08:24 SP TYPE: COLON OTHR DR: DO Dr. Giuseppe Santos MD Dr. Prakash Chand, MD Tissues: Colon, NOS Procedures: Surgery Specimen Level V HEADER OPERATION: Exploratory laparoscopy, small bowel resection PRE-OP DIAGNOSIS: Postop nausea and vomiting; small bowel obstruction; history of umbilical hernia repair TISSUE SUBMITTED: Portion of small bowel MICROSCOPIC DIAGNOSIS Portion of small bowel, segmental resection: Extensive serosal acute and chronic inflammation, congestion, hemorrhage and reactive changes. Mucosal congestion and nonspecific chronic inflammation. Detached piece of tissue with mucosal congestion and nonspecific chronic inflammation. GRANT:sonny 04/26/2023 MICROSCOPIC DESCRIPTION Slides are reviewed. GROSS DESCRIPTION Received in fixative is one container labeled with the patient's name and designated portion of small bowel. The specimen consists of a 30.0 cm segment of bowel with attached minimal fibrofatty tissue. Both ends of the bowel are stapled. The serosal surface is dusky [place] in color with lacy white-wilcox fibrinous material adherent. No gross perforations are identified. Also present free in the container is an irregular fragment of mucosa measuring 4.5 x 1.0 x 0.5 cm. The mucosa of the bowel is wilcox-salinas in color. No mucosal mass lesions or ulcerations are identified. Serial sections of the attached fibrofatty tissue reveal one possible lymph node. No mass lesions are identified. Chip Applying Machine Tender sections are submitted in ten cassettes as follows: 1 - fragment free in container, 2 & 3 - mucosal margins (one margin inked black), 4-9 - litigation claim representative sections of bowel and approximately 5.0 to 8.0 cm apart, 10 - one possible lymph node and peribowel fibrofatty tissue. / AM:sonny 04/23/2023 TC:5 CPT: 95967
--- NOTE | 2023-04-21 14:41 | CASEMGMT ---
RN CM Readmission Note Previous Admission:?04/17/23-04/20/23 Diagnosis:?ventral hernia with obstruction? DC Disposition: Home with?FWW Current Admission? Current Diagnosis: postop N/V Pt dc'd yesterday and returned d/t N/V. CT showing SBO and some air tracking along L rectus and some fluid within prior umbilical hernia defect. Pt with NG, NPO status. Plan for exploratory lap with possible bowel resection to try to resolve obstruction. DC Plan: JOSE LUIS CRUZ to follow as pt is currently in OR. ?
[2023-04-21] MEDS: Bupivacaine Mpf 0.5% 30 ML VIAL (16:08)
[2023-04-21] MEDS: Sugammadex Sodium 200 MG/2 ML VIAL IV (16:10)
[2023-04-21] MEDS: Lactated Ringers 1,000 ML 15 ML IV (16:25)
--- NOTE | 2023-04-21 16:26 | PCM.OPRPT ---
Report of Operation Date of Procedure: 04/21/23 Pre-Operative Diagnosis: Small bowel obstruction Post-Operative Diagnosis: Small bowel obstruction Surgery/Procedure Performed:: Exploratory laparoscopy with small bowel resection Type of Anesthesia: General/Regional Specimen's removed: Small bowel segment Estimated Blood Loss (mL): 50 Description of Procedure: Patient was brought back to the operating room and general anesthesia was induced. The abdomen was prepped and draped in usual sterile fashion. An incision was made in the left upper quadrant and using Visiport technique the abdomen was entered using a 5 port. The abdomen was insufflated 15 mmHg. Under direct visualization 2 more left abdominal 5 mm ports were placed. There was adhesions to the mesh which were taken down bluntly. The small bowel was nondistended distally. It was traced back to the area of transition. It appeared that there was a loop of small bowel that was in the hernia. It did not appear necrotic but it was edematous and likely ischemic for too long and developed ischemic stricture. The decision was made to resect this segment. A midline incision was made superior to the prior incision in the epigastric region. The fascia was incised. A wound protector was placed the bowel was delivered through the incision. Proximally and distally the bowel was divided using a JAROD stapler. The small bowel was taken from its mesentery using LigaSure impact. Hemostasis was obtained using 3-0 silk sutures. The corner of each staple line was removed and the JAROD stapler was used to anastomose the proximal distal small bowel. The enterostomy was inspected and then closed using a TX 60 stapler. 3-0 silk sutures were used to maintain hemostasis on the staple line. The peritoneum was attempted to be reapproximated using a 3-0 Vicryl suture but it was very edematous and difficult. The bowel was returned to the abdomen. The wound protector was removed. The fascia was closed with running #1 PDS from the top and bottom meeting in the middle. Next the abdomen was reinsufflated and inspected laparoscopically. The abdomen was irrigated and suctioned dry with 2 L of saline. The omentum was draped as much as possible over the bowel and then the abdomen was allowed to desufflate and the ports were removed. All the incisions were injected with local anesthetic. The midline incision was irrigated and suctioned dry. All the incisions were closed with interrupted 4-0 Monocryl sutures. Steri-Strips and bandages were applied. Patient was taken to PACU in stable condition. Admit VTE Documentation VTE Mechan Device Prophylaxis: SCD's
--- NOTE | 2023-04-21 16:38 | SUR.PHASEI ---
NG TO LOW INTERMITTENT SUCTION PRODUCING GREEN LIQUID.
[2023-04-21] MEDS: Morphine 2 MG/ML Syringe IV (19:08)
[2023-04-22] VITALS (15 sets, daily range): BP systolic 122–163; BP diastolic 63–89; PULSE 102–130; RESP 18–28; TEMP 37.1–39.6; O2SAT 92–99
[2023-04-22] MEDS: Morphine 4 MG/ML Syringe IV ×3 (00:18→07:27)
--- NOTE | 2023-04-22 01:23 | RAD_ITS ---
INDICATION: fever EXAMINATION/TECHNIQUE: X-RAY - XR Chest 1 View COMPARISON: 04/21/2023. FINDINGS: LINES/DEVICES: Enteric tube side-port and distal tip are distal to the GE junction within the proximal stomach. LUNGS: No consolidation or evidence of an effusion. No evidence of edema or a pneumothorax. MEDIASTINUM AND CARDIOVASCULAR STRUCTURES: Cardiac silhouette is normal in size and contour. Mediastinum is unremarkable. BONES AND SOFT TISSUES: No acute abnormality. RAD/Chest 1 View (Portable) IMPRESSION: No evidence of cardiopulmonary disease. Electronically Signed: Олег Engel DO at 2:10 EDT ,
[2023-04-22] MEDS: Ondansetron 4 MG/2 ML Vial IV (01:28)
--- NOTE | 2023-04-22 01:46 | CON.PCM.HO_ITS ---
Assessment & Plan Assessment/Plan (1) Postoperative fever: PLAN: Plan Patient is a 37-year-old male with history of morbid obesity, anxiety/depression, hypertension who was recently hospitalized from 04/17 through 04/20 for an incarcerated ventral hernia. S/p laparoscopic ventral hernia repair with mesh on 04/[address] Genao. Patient tolerated the procedure well and was discharged home on 04/20. Re-presented to the emergency department on 04/21 with worsening abdominal pain as well as nausea and vomiting. CT abdomen pelvis showed a possible small bowel obstruction as well as possible free air in the abdomen. S/p exploratory laparoscopy with small bowel resection with Dr. Genao on 04/21. No procedural complications, was transferred to [facility] postoperatively without issue. Patient developed a fever of 102F and had worsening sinus tachycardia overnight on 04/22, medicine consulted for further evaluation. 1. Postoperative fever with worsening sinus tachycardia Unclear etiology but seems most likely secondary to postoperative response. Low concern for an infection that is not being covered by Zosyn, which was initiated on admission. No concern for fever secondary to either administration of medications, or medication withdrawal on review of patient's record. Patient had low-grade fevers of 99-100F a few hours postoperatively, but then spiked a fever of 102F at 1 AM on 04/22. Patient reported subjective fevers and chills at that time. Also had worsening sinus tachycardia from a heart rate around 100- 110 worsened to 130. On my review, EKG showed sinus tachycardia, known RBBB, no acute ST changes. Chest x-ray was nonacute. Patient was given Tylenol and a one-time dose of IV Ativan prior to my arrival to the bedside. On my interview, patient was sitting comfortably at edge of bed, reported no abdominal pain or discomfort, no increased work of breathing on 2 L nasal cannula, otherwise no acute distress. ?We will monitor patient's sinus tachycardia after administration of 1 L of IV fluids. Continue Zosyn. Follow-up blood cultures. Treat patient's known a nxiety as below. CBC daily. Continue IV morphine every 2 hours as needed for pain control. 2. Ventral hernia repair complicated by small bowel obstruction ? General surgery primary. S/p procedures on 04/19 and 04/21 as noted above. NG tube in place, patient NPO. Defer to general surgery for further management. Restart home p.o. medications as able. Chronic medical conditions: ? Anxiety/depression: On home sertraline 100 mg daily. Last dose received on 04/20. Restart as able. ? Hypertension: On home hydrochlorothiazide 12.5 mg daily and lisinopril 10 mg daily. Restart as able. DVT prophylaxis: SCDs CODE STATUS: Full code, unverified Expected disposition: Home, TBD Total clinical time spent by myself addressing the patient's medical issues, reviewing all the data, and collaborating with patient's care team: 35 minutes. HPI Consult Data Date of Consult: 04/22/23 HPI Narrative Reason for Consultation: Postoperative fever and tachycardia HPI Narrative: ALEXANDRU MYERS, is a 37 M with history of morbid obesity, anxiety/depression, hypertension who was recently hospitalized from 04/17 through 04/20 for an in carcerated ventral hernia. S/p laparoscopic ventral hernia repair with mesh on 04/[address] Genao. Patient tolerated the procedure well and was discharged home on 04/20. Re-presented to the emergency department on 04/21 with worsening abdominal pain as well as nausea and vomiting. CT abdomen pelvis showed a possible small bowel obstruction as well as possible free air in the abdomen. S/p exploratory laparoscopy with small bowel resection with Dr. Genao on 04/21. No procedural complications, was transferred to [facility] postoperatively without issue. Patient developed a fever of 102F and had worsening sinus tachycardia overnight on 04/22, medicine consulted for further evaluation. Patient seen at bedside around 1 AM on 04/22. Patient was sitting comfortably at the edge of the bed, alert, breathing comfortably and conversing normally, in no acute distress. States he feels better after receiving doses of Tylenol and IV Ativan. He denies any acute abdominal pain or discomfort. He denies any chest pain or shortness of breath. He does feel very fatigued overall and weaker than his baseline. He notes that he had fevers and chills that started about 1 to 2 hours ago, are now improved after taking Tylenol. He feels like he can go back to sleep at this time. No other acute concerns. [facility] Medical History (Updated 04/22/23 @ 02:[address] Everton Faulkner, DO) Anxiety Depression Former smoker Hypertension Non-smoker Umbilical hernia Home Medications lisdexamfetamine 70 mg capsule (Vyvanse) 70 mg PO DAILY 12/03/15 [History Last Taken Unknown] albuterol sulfate 90 mcg/actuation aerosol inhaler 2 puff inhalation Q4H PRN shortness of breath 04/17/23 [History Last Taken Unknown] cetirizine 10 mg tablet (24Hour Allergy) 10 mg PO DAILY allergies 04/17/23 [History Last Taken Unknown] fluticasone propionate 50 mcg/actuation nasal spray,suspension 2 spray intranasal DAILY allergies 04/17/23 [History Last Taken Unknown] hydrochlorothiazide 12.5 mg capsule 12.5 mg PO DAILY HTN 04/17/23 [History Last Taken Unknown] lisinopril 10 mg tablet 10 mg PO DAILY 04/17/23 [History Last Taken Unknown] meloxicam 15 mg tablet 15 mg PO DAILY 04/17/23 [History Last Taken Unknown] omeprazole 20 mg capsule,delayed release 20 mg PO DAILY 04/17/23 [History Last Taken Unknown] sertraline 100 mg tablet 100 mg PO DAILY depression 04/17/23 [History Last Taken Unknown] docusate sodium 100 mg capsule 100 mg PO BID 14 days #28 caps 04/20/23 [Rx Last Taken Unknown] oxycodone 5 mg tablet 5 mg PO Q6H PRN PRN Pain Score 4-10 10 days #30 tabs 04/20/23 [Rx Last Taken Unknown] Allergy/AdvReac Type Severity Reaction Status Date / Time latex Allergy Rash Verified 04/21/23 02:36 Surgical History History of umbilical hernia repair Social History Smoking Status: Former smoker ROS Constitutional Constitutional: Reports fatigue, malaise and weakness; Denies chills or fever(s) Eyes Eyes: Denies change in vision Cardiovascular Cardiovascular: Denies chest pain, lightheadedness or palpitations Respiratory/Chest Respiratory/Chest: Denies cough, shortness of breath at rest or wheezing Gastrointestinal Gastrointestinal: Denies abdominal pain, nausea or vomiting Physical Exam Const alert and oriented x3 Constitutional Narrative: Alert but fatigued appearing male, morbidly obese, sitting comfortably at edge of bed, conversing normally, no acute distress. General Appearance: cooperative, comfortable, well kempt and well developed HEENT normocephalic, head/scalp atraumatic, hearing grossly normal bilaterally, nasal mucous membranes and turbinates normal and moist oral mucous membranes Eyes PERRL, EOMs intact bilaterally and conjunctivae normal Neck full ROM, no lymphadenopathy and supple Lymph Lymphatic: no lymphadenopathy noted Chest inspection of chest normal Resp normal respiratory effort, normal air movement, no use of accessory muscles and clear to auscultation bilaterally Cardio regular rhythm, no murmurs and peripheral pulses 2+ throughout Cardio Narrative: Sinus tachycardia. GI GI Narrative: Mildly distended but soft and nontender to palpation. Back/Spine normal ROM Extremity normal to inspection, full ROM and no pedal edema Skin no rashes or lesions noted Psych mental status grossly normal Lab / Micro Data 04/21/23 02:55 04/21/23 02:55 Labs: Laboratory Results - last 24 hr 04/21/23 02:55: WBC 13.1 H, RBC 6.25 H, Hgb 16.2, Hct 49.9, MCV 79.8 L, MCH 25.9 L, MCHC 32.5, RDW Std Deviation 43.9, RDW Coeff of Kiet 16.1 H, Plt Count 204, MPV 10.7, Immature Gran % (Auto) 0.700, Neut % (Auto) 81.3 H, Lymph % (Auto) 7.3 L, [place] % (Auto) 10.1 H, Eos % (Auto) 0.1, Baso % (Auto) 0.5, Absolute Neuts (auto) 10.6 H, Absolute Lymphs (auto) 0.95, Nucleated RBC % 0, Sodium 134 L, Potassium 3.7, Chloride 99, Carbon Dioxide 29.0, Anion Gap 6, BUN 18, Creatinine 1.03, Estim Creat Clear Calc 116.38, Est GFR (MDRD) Af Amer 105, Est GFR (MDRD) Non-Af 87, BUN/Creatinine Ratio 17.5, Glucose 162 H, Calcium 8.8, Total Bilirubin 1.10 H, AST 16, ALT 44, Alkaline Phosphatase 75, Total Protein 8.0, Albumin 3.6, Globulin 4.4 H, Albumin/Globulin Ratio 0.8 L, Lipase 59 04/21/23 04:18: Lactic Acid 1.0 Radiology Impression Abdomen/Pelvis CT 04/21/23 02:47 IMPRESSION: Small bowel obstruction as above with pneumatosis. Bowel ischemia is not excluded. Extensive soft tissue gas of the left anterior abdominal wall, which appears to remain extraperitoneal, although of uncertain source. (Additional history provided, patient is postoperative from recent hernia repair, likely accounting for abdominal wall gas. Wednesday pt had hernia sx with mesh, released yesterday and today unable to keep food down with pain). Critical finding results discussed with Dr. Lynn at 0352 hours eastern time 04/21/2023. However, there is rounded gas containing rim enhancing umbilical 4 cm fluid collection, which may represent abscess versus seroma in this postoperative patient. Inflammatory change extends to the underlying anterior mesentery. Dense patchy left lower lobe airspace disease, to include pneumonia. N.B. : The above Results were Read Back by Tejas Mcdermott MD to Rj Lynn MD, and understanding confirmed on 04/21/2023 03:53:58 (ET). Electronically Signed: Tejas Mcdermott MD at 3:59 EDT , ADDENDUM: 04/21/23 0406 IMPRESSION: Small bowel obstruction as above with pneumatosis. Bowel ischemia is not excluded. Extensive soft tissue gas of the left anterior abdominal wall, which appears to remain extraperitoneal, although of uncertain source. (Additional history provided, patient is postoperative from recent hernia repair, likely accounting for abdominal wall gas. Wednesday pt had hernia sx with mesh, released yesterday and today unable to keep food down with pain). Critical finding results discussed with Dr. Lynn at 0352 hours eastern time 04/21/2023. However, there is rounded gas containing rim enhancing umbilical 4 cm fluid collection, which may represent abscess versus seroma in this postoperative patient. Inflammatory change extends to the underlying anterior mesentery. Dense patchy left lower lobe airspace disease, to include pneumonia. N.B. : The above Results were Read Back by Tejas Mcdermott MD to Rj Lynn MD, and understanding confirmed on 04/21/2023 03:53:58 (ET). Electronically Signed: Tejas Mcdermott MD at 3:59 EDT , KUB X-Ray 04/21/23 05:12 IMPRESSION: Enteric tube tip coils over left upper quadrant gastric lucency, likely proximal stomach. Again noted left lung base airspace disease. Partially imaged dilated small bowel loops, consistent with known bowel obstruction. Electronically Signed: Tejas Mcdermott MD at 7:17 EDT , Charges/Coding Visit Charges Inpatient E&M: 19210 Subs Hosp L2
[2023-04-22] MEDS: Acetaminophen 325 MG Tablet 650 MG PO ×2 (01:50→16:00)
[2023-04-22] MEDS: LORazepam 2 MG/ML Syringe 1 MG IV (01:50)
[2023-04-22] MEDS: 0.9% Normal Saline (1000mL) 1,000 ML 999 ML IV (01:52)
--- NOTE | 2023-04-22 01:57 | EKG12_ITS ---
Test Reason : tachy Blood Pressure : / mmHG Vent. Rate : 131 BPM Atrial Rate : 131 BPM P-R Int : 128 ms QRS Dur : 132 ms QT Int : 324 ms P-R-T Axes : 024 266 032 degrees QTc Int : 478 ms Sinus tachycardia Right bundle branch block Abnormal ECG When compared with ECG of 21-APR-2023 03:00, MANUAL COMPARISON REQUIRED, DATA IS UNCONFIRMED Confirmed by GEO ELIZABETH, BIRD ([id number]), assignment desk editor JULIO LIZ ([id number]) on 05/12/2023 1:07:21 PM Referred By: Confirmed By:BIRD GUARDADO MD
[2023-04-22] MEDS: Ketorolac 30 MG/ML Syringe 15 MG IV ×4 (04:03→22:35)
[2023-04-22] MEDS: 0.9% Normal Saline (1000mL) 1,000 ML 150 ML IV (04:03)
[2023-04-22 05:10] LABS: Absolute Lymphocyte Count 1.15 X10^3/uL (0.83-4.51); Absolute Neutrophil Count 8.7 X10^3/uL (2.0-7.7); Basophil# 0.08 X10^3/uL; Basophil% 0.7 % (0-1); Eosinophil# 0.04 X10^3/uL; Eosinophils% 0.3 % (0-5); Hematocrit 50.3 % (40-54); Hemoglobin 15.7 g/dL (13.0-16.5); Lymphocyte # 1.15 X10^3/ul (0.83-4.51); Mean Corp Hgb Conc 31.2 g/dL (32-36); Mean Corpuscular Hgb 25.5 pg (27.0-32.0); Mean Corpuscular Volume 81.7 fL (80-94); Mean Platelet Vol. 10.6 fl (6.2-12.0); Monocyte# 1.38 X10^3/uL; NRBC Flagged by Analyzer 0 % (0-5); Neutrophil # 8.73 X10^3/uL (2.7-7.7); POSITIVE MORPHOLOGY YES; Platelet Count 214 K/mm3 (150-450); RBC Distribution Width SD 46.3 fl (35.1-43.9); Red Blood Count 6.16 M/mm3 (4.6-6.2); White Blood Count 11.5 K/mm3 (4.4-11.0)
[2023-04-22 05:11] LABS: Differential Indicated SCAN CRITERIA MET
[2023-04-22 05:31] LABS: Anion Gap 6 (5-15); BUN 21 mg/dL (7-18); BUN/Creat Ratio 18.6 RATIO (10-20); Calcium,Total 7.8 mg/dL (8.5-10.1); Chloride 106 mmol/L (98-107); Creatinine, Serum 1.13 mg/dL (0.70-1.30); EST Glomerular Filtration Rate 78 mL/min (>60); Est Glom Filt Rate - Afr Amer 95 mL/min (>60); Estimated Creatinine Clearance 106.08 ml/min; Glucose 156 mg/dL (74-106); Magnesium 2.3 mg/dL (1.6-2.6); Potassium 3.4 mmol/L (3.5-5.1); Sodium Level 138 mmol/L (136-145)
[2023-04-22 05:34] LABS: Lactic Acid 1.2 mmol/L (0.4-1.9)
--- NOTE | 2023-04-22 05:55 | RAD_ITS ---
INDICATION: sbo EXAMINATION/TECHNIQUE: X-RAY - Supine AP view. COMPARISON: 04/21/2023 x-rays and CT. FINDINGS: BOWEL GAS PATTERN: Dilated small bowel measuring up to 7.0 cm in diameter. No significant stool retention. CALCIFICATIONS: No abnormal calcifications identified. LOWER CHEST: Visualized lung bases are unremarkable. BONES AND SOFT TISSUES: No acute abnormality. RAD/Abdomen Single View IMPRESSION: Small bowel obstruction. Electronically Signed: Олег Engel DO at 6:02 EDT ,
--- NOTE | 2023-04-22 06:19 | CT_ITS ---
INDICATION: tachycardia -- sp abd surgery EXAMINATION: CTA Chest and CTA Abdomen and Pelvis W/ Contrast Injection (and W/O Contrast Images if performed) TECHNIQUE: Helically acquired axial images were obtained of the chest, abdomen, and pelvis with sagittal and coronal reconstructed images. Individualized dose optimization techniques were used for this CT. IV contrast dosage and agent: 100 mL of Isovue-370. Oral contrast: None. COMPARISON: 04/21/2023 CT abdomen/pelvis. FINDINGS: ---Chest: LUNGS, PLEURA AND LARGE AIRWAYS: Left basilar atelectasis versus infiltrates. No pulmonary nodule. No pleural effusion. No pneumothorax. THYROID: Unremarkable. HEART AND PERICARDIUM: Coronary artery calcifications are present. No pericardial effusion. MEDIASTINUM AND KALYAN: No mediastinal or hilar adenopathy. Esophagus is unremarkable. No hiatal hernia. VESSELS: No thoracic aortic aneurysm or dissection. No obvious central pulmonary embolism although this study was not performed with pulmonary embolism protocol. BONES: No acute abnormality. ---Abdomen/Pelvis: VESSELS: No abdominal aortic aneurysm or dissection. LIVER: No evidence of a mass. No intrahepatic or extrahepatic biliary duct dilation. Diffuse decreased attenuation. GALLBLADDER: No calcified stones. No evidence of cholecystitis. PANCREAS: No focal solid or cystic mass. No evidence of pancreatitis. SPLEEN: Normal. ADRENAL GLANDS: Normal. KIDNEYS AND URETERS: No urinary tract stone. No hydronephrosis or hydroureter. No significant asymmetric perinephric stranding. URINARY BLADDER: Unremarkable. BOWEL: Enteric tube terminates in the distal stomach. Diverticulosis with no evidence of diverticulitis. Dilated small bowel loops measuring up to 4.4 cm diameter with air-fluid levels and thickened and enhancing zhao with mild adjacent fat stranding. Distal small bowel loops and colon are nondilated. No evidence of an intra-abdominal abscess. REPRODUCTIVE ORGANS: No evidence of a pelvic mass. PERITONEUM: Small amount of intraperitoneal free air. Small amount of dependent pelvic free fluid. LYMPH NODES: No pathologically enlarged mesenteric or retroperitoneal lymph nodes. ABDOMINAL WALL: No abdominal or pelvic wall hernia. Postsurgical changes in the supraumbilical abdominal wall stranding and a 4.0 x 2.6 x 3.6 cm fluid collection with no rim enhancement. Small amount of air in the anterior abdominal wall consistent with history of recent surgery. BONES: No acute abnormality. CT/CTA Chst, Abd, Pel W and/or WO IMPRESSION: 1. Dilated small bowel loops measuring up to 4.4 cm in diameter with air-fluid levels and thickened enhancing zhao with mild adjacent fat stranding. Findings may represent small bowel obstruction with the transition point at the anastomosis in the mid lower abdomen. Enteritis is difficult to exclude. 2. No evidence of an intra-abdominal abscess. 4.0 cm fluid collection in the anterior supraumbilical abdominal wall may represent a seroma or hematoma with a developing abscess difficult to exclude. No rim enhancement to suggest abscess at this time. 3. Left basilar atelectasis versus infiltrates. 4. Fatty infiltration of the liver. Electronically Signed: Олег Engel DO at 7:21 EDT ,
[2023-04-22 06:24] LABS: Anisocytosis 1+
[2023-04-22] MEDS: Lactated Ringers 1,000 ML 150 ML IV (07:02)
[2023-04-22] MEDS: 0.9% Saline Lock 10 ML Syringe IV ×2 (07:28→22:35)
--- NOTE | 2023-04-22 07:46 | PCM.PN.SRG ---
Subjective Subjective The patient required nasal cannula overnight and was having tachycardia with fever. Objective Data Objective Data Vital Signs: Vital Signs Temp Pulse Resp BP Pulse Ox O2 Del Method O2 Flow Rate 99.4 F H 110 H 28 H 153/80 H 95 Nasal Cannula 2 04/22/23 07:37 04/22/23 07:37 04/22/23 07:37 04/22/23 07:37 04/22/23 07:37 04/22/23 07:37 04/22/23 07:37 Oxygen Flow Rate (L/min) 2 Oxygen Delivery Method Nasal Cannula Weight: 316 lb 12.868 oz Body Mass Index (BMI) 40.6 Intake & Output: Intake and Output for Last 24 Hours 04/20/23 04/21/23 04/22/23 23:59 23:59 23:59 Intake Total 3120 / 3120 2080 / 2080 Output Total 1950 / 1950 1900 / 1900 Balance 1170 / 1170 180 / 180 Lab / Micro Data 04/22/23 04:55 04/22/23 04:55 Labs: Laboratory Results - last 24 hr 04/22/23 04:55: WBC 11.5 H, RBC 6.16, Hgb 15.7, Hct 50.3, MCV 81.7, MCH 25.5 L, MCHC 31.2 L, RDW Std Deviation 46.3 H, RDW Coeff of Kiet 16.0 H, Plt Count 214, MPV 10.6, Immature Gran % (Auto) 1.000 H, Neut % (Auto) 76.0 H, Lymph % (Auto) 10.0 L, [place] % (Auto) 12.0 H, Eos % (Auto) 0.3, Baso % (Auto) 0.7, Absolute Neuts (auto) 8.7 H, Absolute Lymphs (auto) 1.15, Nucleated RBC % 0, Anisocytosis 1+, Sodium 138, Potassium 3.4 L, Chloride 106, Carbon Dioxide 26.0, Anion Gap 6, BUN 21 H, Creatinine 1.13, Estim Creat Clear Calc 106.08, Est GFR (MDRD) Af Amer 95, Est GFR (MDRD) Non-Af 78, BUN/Creatinine Ratio 18.6, Glucose 156 H, Lactic Acid 1.2, Calcium 7.8 L, Magnesium 2.3 Radiography Diagnostic Testing: Radiology Impression Chest X-Ray 04/22/23 01:23 IMPRESSION: No evidence of cardiopulmonary disease. Electronically Signed: Олег Engel DO at 2:10 EDT , KUB X-Ray 04/22/23 05:55 IMPRESSION: Small bowel obstruction. Electronically Signed: Олег Engel DO at 6:02 EDT , Chest/Abdomen/Pelvis CTA 04/22/23 06:19 IMPRESSION: 1. Dilated small bowel loops measuring up to 4.4 cm in diameter with air-fluid levels and thickened enhancing zhao with mild adjacent fat stranding. Findings may represent small bowel obstruction with the transition point at the anastomosis in the mid lower abdomen. Enteritis is difficult to exclude. 2. No evidence of an intra-abdominal abscess. 4.0 cm fluid collection in the anterior supraumbilical abdominal wall may represent a seroma or hematoma with a developing abscess difficult to exclude. No rim enhancement to suggest abscess at this time. 3. Left basilar atelectasis versus infiltrates. 4. Fatty infiltration of the liver. Electronically Signed: Олег Engel DO at 7:21 EDT , Physical Exam Const oriented x3 Resp normal respiratory effort Cardio regular rhythm Rate: tachycardic GI soft to palpation Palpation: tender Extremity normal to inspection Assessment & Plan Assessment/Plan (1) Small bowel obstruction: PLAN: The patient had tachycardia overnight. He also had increased tachypnea and was placed on nasal cannula. He is describing abdominal pain over his incision. His NG appears bilious. I performed a chest x-ray which was normal. He received a bolus and was started on Tylenol. His tachycardia improved and his fever did come down. I ordered a CTA of his chest which does not appear to show PE. I reviewed the abdomen pelvis CT scan and there does not appear to be an abscess or leak from the anastomosis. His white count is decreasing as well as his left shift. For today I will continue antibiotics and Tylenol and continue to observe. I encourage incentive spirometer and pain control as the nurse believes he is breathing shallow due to his abdominal pain. Tejas Genao MD Pager: [facility] [address] [place] [address] [address] [place] [address] Office:
[2023-04-22] MEDS: Piperacil/Tazobactam 3.375 GM in 0.9% Normal Saline (50mL MB+) 50 ML IV ×3 (08:02→20:10)
--- NOTE | 2023-04-22 09:59 | PCM.PN.HOSP ---
Reason for Visit Reason for Visit: Diagnoses Unspecified intestinal obstruction, unspecified as to partial versus complete obstruction (04/21/23) Nausea with vomiting, unspecified (04/21/23) Postprocedural fever (04/21/23) Personal history of other diseases of the digestive system (04/21/23) Other specified postprocedural states (04/21/23) Objective Data Objective Data Vital Signs: Vital Signs Temp Pulse Resp BP Pulse Ox O2 Del Method O2 Flow Rate 99.4 F H 110 H 28 H 153/80 H 95 Nasal Cannula 2 04/22/23 07:37 04/22/23 07:37 04/22/23 07:37 04/22/23 07:37 04/22/23 07:37 04/22/23 07:37 04/22/23 07:37 Oxygen Flow Rate (L/min) 2 Oxygen Delivery Method Nasal Cannula Weight: 316 lb 12.868 oz Body Mass Index (BMI) 40.6 Intake & Output: Intake and Output for Last 24 Hours 04/20/23 04/21/23 04/22/23 23:59 23:59 23:59 Intake Total 3120 / 3120 2080 / 2080 Output Total 1950 / 1950 1900 / 1900 Balance 1170 / 1170 180 / 180 Lab / Micro Data 04/22/23 04:55 04/22/23 04:55 Labs: Laboratory Results - last 24 hr 04/22/23 04:55: WBC 11.5 H, RBC 6.16, Hgb 15.7, Hct 50.3, MCV 81.7, MCH 25.5 L, MCHC 31.2 L, RDW Std Deviation 46.3 H, RDW Coeff of Kiet 16.0 H, Plt Count 214, MPV 10.6, Immature Gran % (Auto) 1.000 H, Neut % (Auto) 76.0 H, Lymph % (Auto) 10.0 L, [place] % (Auto) 12.0 H, Eos % (Auto) 0.3, Baso % (Auto) 0.7, Absolute Neuts (auto) 8.7 H, Absolute Lymphs (auto) 1.15, Nucleated RBC % 0, Anisocytosis 1+, Sodium 138, Potassium 3.4 L, Chloride 106, Carbon Dioxide 26.0, Anion Gap 6, BUN 21 H, Creatinine 1.13, Estim Creat Clear Calc 106.08, Est GFR (MDRD) Af Amer 95, Est GFR (MDRD) Non-Af 78, BUN/Creatinine Ratio 18.6, Glucose 156 H, Lactic Acid 1.2, Calcium 7.8 L, Magnesium 2.3 Radiography Diagnostic Testing: Radiology Impression Chest X-Ray 04/22/23 01:23 IMPRESSION: No evidence of cardiopulmonary disease. Electronically Signed: Олег EngelDO ana paula at 2:10 EDT , KUB X-Ray 04/22/23 05:55 IMPRESSION: Small bowel obstruction. Electronically Signed: Олег Engel DO at 6:02 EDT , Chest/Abdomen/Pelvis CTA 04/22/23 06:19 IMPRESSION: 1. Dilated small bowel loops measuring up to 4.4 cm in diameter with air-fluid levels and thickened enhancing zhao with mild adjacent fat stranding. Findings may represent small bowel obstruction with the transition point at the anastomosis in the mid lower abdomen. Enteritis is difficult to exclude. 2. No evidence of an intra-abdominal abscess. 4.0 cm fluid collection in the anterior supraumbilical abdominal wall may represent a seroma or hematoma with a developing abscess difficult to exclude. No rim enhancement to suggest abscess at this time. 3. Left basilar atelectasis versus infiltrates. 4. Fatty infiltration of the liver. Electronically Signed: Олег EngelDO ana paula at 7:21 EDT , Physical Exam Narrative Seen and examined. Patient had flatus today but no bowel movement. Patient is walking aggressively. Patient stated recently had umbilical hernia repair surgery. Mild low-grade fever 99.4 Fahrenheit. Tachycardia and tachypnea. Physical exam General: Alert, Oriented x3, Cooperative, morbid is a BMI 40.7 KG per square meter. HEENT: Atraumatic, PERRLA, EOMI, Normocephalic Oral: Oral mucosa moist. No Gingival or Mucosal Lesions/ Ulcerations Neck: Supple, No JVD, Negative Carotid Bruits Lungs: Air entry diminished in bilateral lung bases. No crepitation/rhonchi Cardiovascular: Regular rate, Regular Rhythm, Normal S1, Normal S2, No murmurs Abdomen: NG tube: Bilious aspirate. Bowel Sounds absent. Soft, mild tenderness. Dressing is dry. No distention. : No renal angle tenderness. No suprapubic tenderness. Extremities: No edema, Capillary Refill Less than 3 Seconds Skin: No rashes, No breakdown Musculoskeletal: No Tenderness to Palpation of Joints or Extremities Neurological: Cranial nerves II-XII grossly intact, DTR 2+/4. No acute focal neurological deficit. Psych/Mental Status: Normal Affect, Appropriate. Assessment & Plan Assessment/Plan (1) Postoperative fever: PLAN: Plan Patient is a 37-year-old male with history of morbid obesity, anxiety/depression, hypertension who was recently hospitalized from 04/17 through 04/20 for an incarcerated ventral hernia. S/p laparoscopic ventral hernia repair with mesh on 04/[address] Genao. Patient tolerated the procedure well and was discharged home on 04/20. Re-presented to the emergency department on 04/21 with worsening abdominal pain as well as nausea and vomiting. CT abdomen pelvis showed a possible small bowel obstruction as well as possible free air in the abdomen. S/p exploratory laparoscopy with small bowel resection with Dr. Genao on 04/21. No procedural complications, was transferred to [facility] floor postoperatively without issue. Patient developed a fever of 102F and had worsening sinus tachycardia overnight on 04/22, medicine consulted for further evaluation. 1. Postoperative fever with worsening sinus tachycardia: Patient had CTPA done which did not show any PE. CT abdomen also did not show leak or abscess therefore continue antibiotic. Tmax 103.2 Fahrenheit. Aggressive incentive spirometry. EKG showed sinus tachycardia, known RBBB, no acute ST changes. Chest x-ray was nonacute. Symptomatic management for fever. Continue IV Zosyn. 2. Ventral hernia repair complicated by small bowel obstruction ? General surgery primary. S/p procedures on 04/19 and 04/21 as noted above. NG tube in place, patient NPO. Defer to general surgery for further management. Restart home p.o. medications as able. Chronic medical conditions: ? Anxiety/depression: On home sertraline 100 mg daily. Last dose received on 04/20. Restart as able. ? Hypertension: Discontinue HCTZ as patient on IV fluid and has hypokalemia. Blood pressure is normal. DVT prophylaxis: SCDs CODE STATUS: Full code, unverified Clinical Impression(s) from Imaging Studies Abdomen/Pelvis CT 04/21/23 02:47 IMPRESSION: Small bowel obstruction as above with pneumatosis. Bowel ischemia is not excluded. Extensive soft tissue gas of the left anterior abdominal wall, which appears to remain extraperitoneal, although of uncertain source. (Additional history provided, patient is postoperative from recent hernia repair, likely accounting for abdominal wall gas. Wednesday pt had hernia sx with mesh, released yesterday and today unable to keep food down with pain). Critical finding results discussed with Dr. Lynn at 0352 hours eastern time 04/21/2023. However, there is rounded gas containing rim enhancing umbilical 4 cm fluid collection, which may represent abscess versus seroma in this postoperative patient. Inflammatory change extends to the underlying anterior mesentery. Dense patchy left lower lobe airspace disease, to include pneumonia. N.B. : The above Results were Read Back by Tejas Mcdermott MD to Rj Lynn MD, and understanding confirmed on 04/21/2023 03:53:58 (ET). Electronically Signed: Tejas Mcdermott MD at 3:59 EDT , ADDENDUM: 04/21/23 0406 IMPRESSION: Small bowel obstruction as above with pneumatosis. Bowel ischemia is not excluded. Extensive soft tissue gas of the left anterior abdominal wall, which appears to remain extraperitoneal, although of uncertain source. (Additional history provided, patient is postoperative from recent hernia repair, likely accounting for abdominal wall gas. Wednesday pt had hernia sx with mesh, released yesterday and today unable to keep food down with pain). Critical finding results discussed with Dr. Lynn at 0352 hours eastern time 04/21/2023. However, there is rounded gas containing rim enhancing umbilical 4 cm fluid collection, which may represent abscess versus seroma in this postoperative patient. Inflammatory change extends to the underlying anterior mesentery. Dense patchy left lower lobe airspace disease, to include pneumonia. N.B. : The above Results were Read Back by Tejas Mcdermott MD to Rj Lynn MD, and understanding confirmed on 04/21/2023 03:53:58 (ET). Electronically Signed: Tejas Mcdermott MD at 3:59 EDT , KUB X-Ray 04/21/23 05:12 IMPRESSION: Enteric tube tip coils over left upper quadrant gastric lucency, likely proximal stomach. Again noted left lung base airspace disease. Partially imaged dilated small bowel loops, consistent with known bowel obstruction. Electronically Signed: Tejas Mcdermott MD at 7:17 EDT , Chest X-Ray 04/22/23 01:23 IMPRESSION: No evidence of cardiopulmonary disease. Electronically Signed: Олег Engel DO at 2:10 EDT , KUB X-Ray 04/22/23 05:55 IMPRESSION: Small bowel obstruction. Electronically Signed: Олег Engel DO at 6:02 EDT , Chest/Abdomen/Pelvis CTA 04/22/23 06:19 IMPRESSION: 1. Dilated small bowel loops measuring up to 4.4 cm in diameter with air-fluid levels and thickened enhancing zhao with mild adjacent fat stranding. Findings may represent small bowel obstruction with the transition point at the anastomosis in the mid lower abdomen. Enteritis is difficult to exclude. 2. No evidence of an intra-abdominal abscess. 4.0 cm fluid collection in the anterior supraumbilical abdominal wall may represent a seroma or hematoma with a developing abscess difficult to exclude. No rim enhancement to suggest abscess at this time. 3. Left basilar atelectasis versus infiltrates. 4. Fatty infiltration of the liver. Charges/Coding Visit Charges Inpatient E&M: 15492 Subs Hosp L2
[2023-04-22] MEDS: Potassium Chloride 10mEq/100mL 10 MEQ/100 ML IV.SOLN. 100 MEQ IV BOLUS ×2 (10:08→11:01)
[2023-04-22] MEDS: BENZOCAINE/MENTHOL 1 LOZENGE MUCOUS MEM (10:13)
--- NOTE | 2023-04-22 12:21 | CASEMGMT ---
RN CM into pt room, pt lying in bed with NG in. Pt seen ambulating halls earlier. Pt states he has his walker and it is going to be brought in for him to use. JOSE LUIS CRUZ to follow for any dc needs.
--- NOTE | 2023-04-22 13:47 | CHAPLAIN ---
Type of Pastoral Visit ___ Initial Visit ___ Follow-up Visit ___ On-call Visit ___ General Patient Visit ___ Spiritual Assessment ___ Family Conference ___ Bereavement ___ Rapid Response ___ Code Blue ___ Other (describe below) Pastoral Care Referral From ___ Patient ___ Family ___ Nurse ___ Physician ___ Administrative Support Manager ___ Rope Walker ___ Other (describe below) Sacrament/Intervention ___ Active listening ___ Anointing ___ Scientology ___ Bereavement ___ Communion ___ Antonia exploration ___ ___ Life review ___ Prayer ___ Reconciliation ___ Sacrament of Sick ___ Supportive presence ___ Wedding ___ Other (describe below) Pastoral Comments patient is sleeping and did not disturb
[2023-04-22] MEDS: Lactated Ringers 1,000 ML 75 ML IV (18:58)
[2023-04-22] MEDS: Loratadine 10 MG Tablet PO (18:58)
[2023-04-22] MEDS: Lisinopril 10 MG Tablet PO (18:58)
[2023-04-22] MEDS: Sertraline 100 MG Tablet PO (18:58)
[2023-04-23] MEDS: 0.9% Normal Saline (1000mL) 1,000 ML 75 ML IV (00:40)
[2023-04-23] MEDS: Acetaminophen 325 MG Tablet 650 MG PO ×2 (02:41→14:31)
[2023-04-23 02:49] VITALS: BP 120/67; PULSE 102; RESP 20; TEMP 36.6; O2SAT 95
[2023-04-23] MEDS: Piperacil/Tazobactam 3.375 GM in 0.9% Normal Saline (50mL MB+) 50 ML IV (04:50)
[2023-04-23 07:40] VITALS: O2SAT 94
[2023-04-23 07:52] LABS: Absolute Lymphocyte Count 1.41 X10^3/uL (0.83-4.51); Absolute Neutrophil Count 7.2 X10^3/uL (2.0-7.7); Basophil# 0.05 X10^3/uL; Basophil% 0.5 % (0-1); Eosinophil# 0.07 X10^3/uL; Eosinophils% 0.7 % (0-5); Hemoglobin 13.7 g/dL (13.0-16.5); Lymphocyte # 1.41 X10^3/ul (0.83-4.51); Mean Corp Hgb Conc 31.1 g/dL (32-36); Mean Corpuscular Hgb 25.8 pg (27.0-32.0); Mean Corpuscular Volume 82.9 fL (80-94); Mean Platelet Vol. 10.8 fl (6.2-12.0); Monocyte# 1.25 X10^3/uL; Monocyte% 12.4 % (0-10); NRBC Flagged by Analyzer 0 % (0-5); Neutrophil % 71.2 % (47-70); POSITIVE MORPHOLOGY YES; Platelet Count 199 K/mm3 (150-450); RBC Distribution Width CV 15.4 % (11.6-14.6); RBC Distribution Width SD 46.8 fl (35.1-43.9); Red Blood Count 5.31 M/mm3 (4.6-6.2); White Blood Count 10.1 K/mm3 (4.4-11.0)
[2023-04-23 07:54] LABS: Differential Indicated SCAN CRITERIA MET
[2023-04-23 08:13] LABS: Differential Comment SCANNED
[2023-04-23 08:19] LABS: Anion Gap 4 (5-15); BUN 23 mg/dL (7-18); BUN/Creat Ratio 24.7 RATIO (10-20); Chloride 108 mmol/L (98-107); Creatinine, Serum 0.93 mg/dL (0.70-1.30); EST Glomerular Filtration Rate 98 mL/min (>60); Est Glom Filt Rate - Afr Amer 118 mL/min (>60); Glucose 131 mg/dL (74-106); Potassium 3.5 mmol/L (3.5-5.1); Sodium Level 141 mmol/L (136-145)
[2023-04-23 08:49] VITALS: BP 120/78; PULSE 99; RESP 18; TEMP 36.6; O2SAT 94
[2023-04-23] MEDS: Ketorolac 30 MG/ML Syringe 15 MG IV ×3 (09:07→23:05)
[2023-04-23] MEDS: Sertraline 100 MG Tablet PO (09:08)
[2023-04-23] MEDS: Lisinopril 10 MG Tablet PO (09:08)
[2023-04-23] MEDS: Loratadine 10 MG Tablet PO (09:08)
--- NOTE | 2023-04-23 10:31 | PN.SURG_ITS ---
Subjective Subjective Yesterday the patient did better than he did the night before. In the last 24 hours he is only had a low-grade fever of 100.5. He describes some flatus. He denies nausea or vomiting. His NG was removed yesterday. Objective Data Objective Data Vital Signs: Vital Signs Temp Pulse Resp BP Pulse Ox O2 Del Method O2 Flow Rate 97.8 F 99 18 120/78 94 Room Air 2 04/23/23 08:49 04/23/23 08:49 04/23/23 08:49 04/23/23 08:49 04/23/23 08:49 04/23/23 08:49 04/23/23 02:49 Oxygen Flow Rate (L/min) 2 Oxygen Delivery Method Room Air Weight: 316 lb 12.868 oz Body Mass Index (BMI) 40.6 Intake & Output: Intake and Output for Last 24 Hours 04/21/23 04/22/23 04/23/23 23:59 23:59 23:59 Intake Total 3120 / 3120 4688.33 / 4688.33 981.25 / 981.25 Output Total 1950 / 1950 3200 / 3200 Balance 1170 / 1170 1488.33 / 1488.33 981.25 / 981.25 Lab / Micro Data 04/23/23 07:30 04/23/23 07:30 Labs: Laboratory Results - last 24 hr 04/23/23 07:30: WBC 10.1, RBC 5.31, Hgb 13.7, Hct 44.0, MCV 82.9, MCH 25.8 L, MCHC 31.1 L, RDW Std Deviation 46.8 H, RDW Coeff of Kiet 15.4 H, Plt Count 199, MPV 10.8, Immature Gran % (Auto) 1.200 H, Neut % (Auto) 71.2 H, Lymph % (Auto) 14.0 L, [place] % (Auto) 12.4 H, Eos % (Auto) 0.7, Baso % (Auto) 0.5, Absolute Ihsan ts (auto) 7.2, Absolute Lymphs (auto) 1.41, Nucleated RBC % 0, Differential Comment SCANNED, Sodium 141, Potassium 3.5, Chloride 108 H, Carbon Dioxide 29.0, Anion Gap 4 L, BUN 23 H, Creatinine 0.93, Estim Creat Clear Calc 128.90, Est GFR (MDRD) Af Amer 118, Est GFR (MDRD) Non-Af 98, BUN/Creatinine Ratio 24.7 H, Glucose 131 H, Calcium 8.0 L Physical Exam Const oriented x3 and no apparent distress Resp normal respiratory effort GI soft to palpation Inspection: Negative for abdominal distention Assessment & Plan Assessment/Plan (1) Small bowel obstruction: PLAN: Patient is still tachycardic but he also may be having withdrawal as he takes a lot of caffeine drinks. The patient is more comfortable than yesterday. The patient wants to advance his diet very slowly as he is feeling very cautious after having thrown up after his last surgery. He would like to slowly advance his diet so I will leave him on clears today. White count is improving. I will stop antibiotics. Tejas Genao MD Pager: [facility] [address] [place] [address], [address] [place] [phone] Office:
[2023-04-23 12:37] VITALS: BP 120/80; PULSE 92; RESP 18; TEMP 36.8
--- NOTE | 2023-04-23 12:39 | NURSING ---
CURRENTLY ON EMERGENCY CHARTING-ASSESSMENT UNCHANGED FROM THIS AM-PT CONTINUES TO WALK IN HALLWAY OCCASIONALLY-C/O 2 LOOSE STOOLS TODAY+FLATUS-TOLERATED CLEAR LIQUIDS WELL-VOID QS-
--- NOTE | 2023-04-23 13:16 | PCM.DC.SUM ---
Providers Date of Admission: 04/21/23 Primary Care Physician: Dr. Giuseppe Sheets MD Consultations 04/22/23 01:29 Consult: Hospitalist Routine Consulting Provider: Everton Faulkner Reason for Consult: fever and tachycardia post procedure EMERGENT Consult: No MD Notified: Yes Date Notified: 04/22/23 Time Notified: 01:30 Method of Notification: Verbal Comments:: Dr Genao contacted hospitalist Reason For Visit: POSTOPERATIVE NAUSEA AND VOMITING Diagnosis Discharge Diagnosis (1) Small bowel obstruction: Status: Acute Code(s): K56.609 - Unspecified intestinal obstruction, unspecified as to partial versus complete obstruction Plan: Patient is still tachycardic but he also may be having withdrawal as he takes a lot of caffeine drinks. The patient is more comfortable than yesterday. The patient wants to advance his diet very slowly as he is feeling very cautious after having thrown up after his last surgery. He would like to slowly advance his diet so I will leave him on clears today. White count is improving. I will stop antibiotics. Tejas Genao MD Pager: [facility] [address] [place] [address], [address] [place] [phone] Office: Medications at Discharge Home Medications lisdexamfetamine 70 mg capsule (Vyvanse) 70 mg PO DAILY 12/03/15 albuterol sulfate 90 mcg/actuation aerosol inhaler 2 puff inhalation Q4H PRN shortness of breath 04/17/23 cetirizine 10 mg tablet (24Hour Allergy) 10 mg PO DAILY allergies 04/17/23 fluticasone propionate 50 mcg/actuation nasal spray,suspension 2 spray intranasal DAILY allergies 04/17/23 hydrochlorothiazide 12.5 mg capsule 12.5 mg PO DAILY HTN 04/17/23 lisinopril 10 mg tablet 10 mg PO DAILY 04/17/23 meloxicam 15 mg tablet 15 mg PO DAILY 04/17/23 omeprazole 20 mg capsule,delayed release 20 mg PO DAILY 04/17/23 sertraline 100 mg tablet 100 mg PO DAILY depression 04/17/23 docusate sodium 100 mg capsule 100 mg PO BID 14 days #28 caps 04/20/23 oxycodone 5 mg tablet 5 mg PO Q6H PRN PRN Pain Score 4-10 10 days #30 tabs 04/20/23 Hospital Course Summary of Care Provided Hospital Course: Patient was readmitted after ventral hernia repair. The patient was originally admitted for incarcerated hernia with small bowel obstruction. The patient went home from surgery and started having vomiting. He was readmitted after a CT scan showed thickening of the small bowel with obstruction. He was taken for surgery and that segment of small bowel was resected and he had anastomosis. Patient did have postoperative fever and tachycardia and medicine was consulted. He had a CTA of the chest abdomen pelvis that did not show any PE or leak. Patient's white count continue to trend downward. Once tolerating a diet after surgery he was discharged home. Weight / BMI Weight Weight: 316 lb 12.868 oz Body Mass Index (BMI) 40.6 ABG / Lab / Microbiology Data 04/23/23 07:30 04/23/23 07:30 Laboratory: Laboratory Results - last 24 hr 04/23/23 07:30: WBC 10.1, RBC 5.31, Hgb 13.7, Hct 44.0, MCV 82.9, MCH 25.8 L, MCHC 31.1 L, RDW Std Deviation 46.8 H, RDW Coeff of Kiet 15.4 H, Plt Count 199, MPV 10.8, Immature Gran % (Auto) 1.200 H, Neut % (Auto) 71.2 H, Lymph % (Auto) 14.0 L, Boyle % (Auto) 12.4 H, Eos % (Auto) 0.7, Baso % (Auto) 0.5, Absolute Neuts (auto) 7.2, Absolute Lymphs (auto) 1.41, Nucleated RBC % 0, Differential Comment SCANNED, Sodium 141, Potassium 3.5, Chloride 108 H, Carbon Dioxide 29.0, Anion Gap 4 L, BUN 23 H, Creatinine 0.93, Estim Creat Clear Calc 128.90, Est GFR (MDRD) Af Amer 118, Est GFR (MDRD) Non-Af 98, BUN/Creatinine Ratio 24.7 H, Glucose 131 H, Calcium 8.0 L D/C Instructions Discharge Diet: Light diet - advance as tolerated Discharge Activity: May Not Drive (while on pain medication) and May Shower Lifting Restrictions: 15 lbs for 6 weeks Call your doctor if your incision/area has: Continuous Slow Oozing, Sudden Increased Bleeding, Increased Pain/ Swelling, Increased Redness, Foul Smelling Discharge and Swelling at the incision site Call your doctor if you observe: Fever of 101 or Higher, Inability to urinate and Inability to have a bowel movement Change Dressing in: 1 day Cleanse incision/area with: Soap & Water Please Follow Up With: Tejas Genao MD When: Please call to schedule 2 week follow up appointment. [phone] Meaningful Use Info Meaningful Use Diagnoses (Choose all that apply): None applicable Discharge Plan Admission Admit Date/Time: 04/21/23 06:14 Attending Provider: Tejas Genao Primary Care Provider: Giuseppe Sheets Consulting Providers: Bandar Saxena; Everton Faulkner Discharge Orders/Prescriptions Prescriptions: Continued lisdexamfetamine [Vyvanse] 70 MG capsule 70 mg PO DAILY meloxicam 15 mg tablet 15 mg PO DAILY Patient Comments: TAKE 1 TABLET BY MOUTH ONCE DAILY. TAKE WITH FOOD. sertraline 100 mg tablet 100 mg PO DAILY lisinopril 10 mg tablet 10 mg PO DAILY Patient Comments: TAKE 1 TABLET BY MOUTH EVERY DAY hydrochlorothiazide 12.5 mg capsule 12.5 mg PO DAILY albuterol sulfate 90 mcg/actuation HFA aerosol inhaler 2 puff INHALATION Q4H PRN (Reason: shortness of breath) Patient Comments: INHALE 2 PUFFS BY MOUTH EVERY 6 HOURS NEEDED DIRECTED fluticasone propionate 50 mcg/actuation spray,suspension 2 spray INTRANASAL DAILY Patient Comments: SPRAY 2 SPRAYS INTO EACH NOSTRIL EVERY DAY omeprazole 20 mg capsule,delayed release(DR/EC) 20 mg PO DAILY cetirizine [24Hour Allergy] 10 mg tablet 10 mg PO DAILY docusate sodium 100 mg Capsule 100 mg PO BID 14 Days Qty: 28 0RF oxycodone 5 mg Tablet 5 mg PO Q6H PRN PRN (Reason: Pain Score 4-10) 10 Days Qty: 30 0RF Referrals / Follow Up: Giuseppe Sheets MD [Primary Care Provider] - Disposition Disposition (needs filled in before D/C Order can be placed): Home, Self Care
--- NOTE | 2023-04-23 14:25 | CHAPLAIN ---
Type of Pastoral Visit _x__ Initial Visit ___ Follow-up Visit ___ On-call Visit ___ General Patient Visit ___ Spiritual Assessment ___ Family Conference ___ Bereavement ___ Rapid Response ___ Code Blue ___ Other (describe below) Pastoral Care Referral From _x__ Patient ___ Family ___ Nurse ___ Physician ___ Home Care Companion ___ Programs Director ___ Other (describe below) Sacrament/Intervention _x__ Active listening ___ Anointing ___ Denominational ___ Bereavement ___ Communion ___ Antonia exploration ___ ___ Life review ___ Prayer ___ Reconciliation ___ Sacrament of Sick _x__ Supportive presence ___ Wedding ___ Other (describe below) Pastoral Comments patient is resting in bed; grandmother, mother, and sister are in the room; pt states that he is doing better now and has turned the corner; mother agrees and states that she has been praying a lot for patient; pt states that he is fine and has no needs; offer of support to patient and family members who also agree that they have no concerns or needs
--- NOTE | 2023-04-23 14:29 | PCM.PN.HOSP ---
Reason for Visit Reason for Visit: Diagnoses Unspecified intestinal obstruction, unspecified as to partial versus complete obstruction (04/21/23) Nausea with vomiting, unspecified (04/21/23) Postprocedural fever (04/21/23) Personal history of other diseases of the digestive system (04/21/23) Other specified postprocedural states (04/21/23) Objective Data Objective Data Vital Signs: Vital Signs Temp Pulse Resp BP Pulse Ox O2 Del Method O2 Flow Rate 98.3 F 92 18 120/80 94 Room Air 2 04/23/23 12:37 04/23/23 12:37 04/23/23 12:37 04/23/23 12:37 04/23/23 08:49 04/23/23 12:37 04/23/23 02:49 Oxygen Flow Rate (L/min) 2 Oxygen Delivery Method Room Air Weight: 316 lb 12.868 oz Body Mass Index (BMI) 40.6 Intake & Output: Intake and Output for Last 24 Hours 04/21/23 04/22/23 04/23/23 23:59 23:59 23:59 Intake Total 3120 / 3120 4688.33 / 4688.33 2087.25 / 2087.25 Output Total 1950 / 1950 3200 / 3200 Balance 1170 / 1170 1488.33 / 1488.33 208.25 / 2086.25 Lab / Micro Data 04/23/23 07:30 04/23/23 07:30 Labs: Laboratory Results - last 24 hr 04/23/23 07:30: WBC 10.1, RBC 5.31, Hgb 13.7, Hct 44.0, MCV 82.9, MCH 25.8 L, MCHC 31.1 L, RDW Std Deviation 46.8 H, RDW Coeff of Kiet 15.4 H, Plt Count 199, MPV 10.8, Immature Gran % (Auto) 1.200 H, Neut % (Auto) 71.2 H, Lymph % (Auto) 14.0 L, [place] % (Auto) 12.4 H, Eos % (Auto) 0.7, Baso % (Auto) 0.5, Absolute Neuts (auto) 7.2, Absolute Lymphs (auto) 1.41, Nucleated RBC % 0, Differential Comment SCANNED, Sodium 141, Potassium 3.5, Chloride 108 H, Carbon Dioxide 29.0, Anion Gap 4 L, BUN 23 H, Creatinine 0.93, Estim Creat Clear Calc 128.90, Est GFR (MDRD) Af Amer 118, Est GFR (MDRD) Non-Af 98, BUN/Creatinine Ratio 24.7 H, Glucose 131 H, Calcium 8.0 L Physical Exam Narrative Seen and examined. Patient had flatus several bowel movements. Abdominal distention is better. Patient stated recently had umbilical hernia repair surgery. Mild low-grade fever Tmax 100.5 Fahrenheit. Physical exam General: Alert, Oriented x3, Cooperative, morbid is a BMI 40.7 KG per square meter. HEENT: Atraumatic, PERRLA, EOMI, Normocephalic Oral: Oral mucosa moist. No Gingival or Mucosal Lesions/ Ulcerations Neck: Supple, No JVD, Negative Carotid Bruits Lungs: Air entry diminished in bilateral lung bases. No crepitation/rhonchi Cardiovascular: Regular rate, Regular Rhythm, Normal S1, Normal S2, No murmurs Abdomen:NG tube removed. Bowel Sounds present. Soft, mild tenderness. Dressing is dry. No distention. : No renal angle tenderness. No suprapubic tenderness. Extremities: No edema, Capillary Refill Less than 3 Seconds Skin: No rashes, No breakdown Musculoskeletal: No Tenderness to Palpation of Joints or Extremities Neurological: Cranial nerves II-XII grossly intact, DTR 2+/4. No acute focal neurological deficit. Psych/Mental Status: Normal Affect, Appropriate. Assessment & Plan Assessment/Plan (1) Postoperative fever: PLAN: Plan Patient is a 37-year-old male with history of morbid obesity, anxiety/depression, hypertension who was recently hospitalized from 04/17 through 04/20 for an incarcerated ventral hernia. S/p laparoscopic ventral hernia repair with mesh on 04/[address] Genao. Patient tolerated the procedure well and was discharged home on 04/20. Re-presented to the emergency department on 04/21 with worsening abdominal pain as well as nausea and vomiting. CT abdomen pelvis showed a possible small bowel obstruction as well as possible free air in the abdomen. S/p exploratory laparoscopy with small bowel resection with Dr. Genao on 04/21. No procedural complications, was transferred to [facility] postoperatively without issue. Patient developed a fever of 102F and had worsening sinus tachycardia overnight on 04/22, medicine consulted for further evaluation. 1. Postoperative fever with worsening sinus tachycardia: Patient had CTPA done which did not show any PE. CT abdomen also did not show leak or abscess therefore continue antibiotic. Tmax 103.2 Fahrenheit. Aggressive incentive spirometry. EKG showed sinus tachycardia, known RBBB, no acute ST changes. Chest x-ray was nonacute. Symptomatic management for fever. Continue IV Zosyn. 04/23: Patient had several bowel movements. NG tube was removed yesterday. Patient did not had high grade temperature. Patient is being discharged from surgical service. Antibiotics discontinued. Leukocytosis improving 2. Ventral hernia repair complicated by small bowel obstruction ? General surgery primary. S/p procedures on 04/19 and 04/21 as noted above. NG tube in place, patient NPO. Defer to general surgery for further management. Restart home p.o. medications as able. Chronic medical conditions: ? Anxiety/depression: On home sertraline 100 mg daily. Last dose received on 04/20. Restart as able. ? Hypertension: Discontinue HCTZ as patient on IV fluid and has hypokalemia. Blood pressure is normal. DVT prophylaxis: SCDs CODE STATUS: Full code, unverified Clinical Impression(s) from Imaging Studies Abdomen/Pelvis CT 04/21/23 02:47 IMPRESSION: Small bowel obstruction as above with pneumatosis. Bowel ischemia is not excluded. Extensive soft tissue gas of the left anterior abdominal wall, which appears to remain extraperitoneal, although of uncertain source. (Additional history provided, patient is postoperative from recent hernia repair, likely accounting for abdominal wall gas. Wednesday pt had hernia sx with mesh, released yesterday and today unable to keep food down with pain). Critical finding results discussed with Dr. Lynn at 0352 hours eastern time 04/21/2023. However, there is rounded gas containing rim enhancing umbilical 4 cm fluid collection, which may represent abscess versus seroma in this postoperative patient. Inflammatory change extends to the underlying anterior mesentery. Dense patchy left lower lobe airspace disease, to include pneumonia. N.B. : The above Results were Read Back by Tejas Mcedrmott MD to Rj Lynn MD, and understanding confirmed on 04/21/2023 03:53:58 (ET). Electronically Signed: Tejas Mcdermott MD at 3:59 EDT , ADDENDUM: 04/21/23 0406 IMPRESSION: Small bowel obstruction as above with pneumatosis. Bowel ischemia is not excluded. Extensive soft tissue gas of the left anterior abdominal wall, which appears to remain extraperitoneal, although of uncertain source. (Additional history provided, patient is postoperative from recent hernia repair, likely accounting for abdominal wall gas. Wednesday pt had hernia sx with mesh, released yesterday and today unable to keep food down with pain). Critical finding results discussed with Dr. Lynn at 0352 hours eastern time 04/21/2023. However, there is rounded gas containing rim enhancing umbilical 4 cm fluid collection, which may represent abscess versus seroma in this postoperative patient. Inflammatory change extends to the underlying anterior mesentery. Dense patchy left lower lobe airspace disease, to include pneumonia. N.B. : The above Results were Read Back by Tejas Mcdermott MD to Rj Lynn MD, and understanding confirmed on 04/21/2023 03:53:58 (ET). Electronically Signed: Tejas Mcdermott MD at 3:59 EDT , KUB X-Ray 04/21/23 05:12 IMPRESSION: Enteric tube tip coils over left upper quadrant gastric lucency, likely proximal stomach. Again noted left lung base airspace disease. Partially imaged dilated small bowel loops, consistent with known bowel obstruction. Electronically Signed: Tejas Mcdermott MD at 7:17 EDT , Chest X-Ray 04/22/23 01:23 IMPRESSION: No evidence of cardiopulmonary disease. Electronically Signed: Олег Engel DO at 2:10 EDT , KUB X-Ray 04/22/23 05:55 IMPRESSION: Small bowel obstruction. Electronically Signed: Олег EngelDO at 6:02 EDT , Chest/Abdomen/Pelvis CTA 04/22/23 06:19 IMPRESSION: 1. Dilated small bowel loops measuring up to 4.4 cm in diameter with air-fluid levels and thickened enhancing zhao with mild adjacent fat stranding. Findings may represent small bowel obstruction with the transition point at the anastomosis in the mid lower abdomen. Enteritis is difficult to exclude. 2. No evidence of an intra-abdominal abscess. 4.0 cm fluid collection in the anterior supraumbilical abdominal wall may represent a seroma or hematoma with a developing abscess difficult to exclude. No rim enhancement to suggest abscess at this time. 3. Left basilar atelectasis versus infiltrates. 4. Fatty infiltration of the liver. Charges/Coding Visit Charges Inpatient E&M: 79757 Subs Hosp L2
[2023-04-23] MEDS: oxyCODONE 5 MG Tablet PO (14:30)
[2023-04-23] MEDS: Enoxaparin 40 MG/0.4 ML Syringe SC (14:30)
[2023-04-23 15:54] VITALS: BP 127/65; PULSE 90; RESP 18; TEMP 36.8; O2SAT 95
[2023-04-23 21:00] VITALS: BP 158/103; PULSE 92; RESP 18; TEMP 37.1; O2SAT 98
[2023-04-23] MEDS: 0.9% Saline Lock 10 ML Syringe IV (23:05)
[2023-04-24 03:11] VITALS: BP 126/76; PULSE 88; RESP 18; TEMP 37.2; O2SAT 95
[2023-04-24 06:15] LABS: Absolute Lymphocyte Count 1.47 X10^3/uL (0.83-4.51); Absolute Neutrophil Count 6.8 X10^3/uL (2.0-7.7); Basophil# 0.06 X10^3/uL; Basophil% 0.6 % (0-1); Eosinophil# 0.29 X10^3/uL; Hematocrit 43.7 % (40-54); Hemoglobin 13.4 g/dL (13.0-16.5); Lymphocyte # 1.47 X10^3/ul (0.83-4.51); Lymphocyte % 15.2 % (19-41); Mean Corp Hgb Conc 30.7 g/dL (32-36); Mean Corpuscular Hgb 25.5 pg (27.0-32.0); Mean Corpuscular Volume 83.1 fL (80-94); Mean Platelet Vol. 11.3 fl (6.2-12.0); Monocyte# 0.94 X10^3/uL; Monocyte% 9.7 % (0-10); NRBC Flagged by Analyzer 0 % (0-5); Neutrophil # 6.81 X10^3/uL (2.7-7.7); Neutrophil % 70.5 % (47-70); POSITIVE COUNT YES; RBC Distribution Width SD 45.6 fl (35.1-43.9); Red Blood Count 5.26 M/mm3 (4.6-6.2); White Blood Count 9.7 K/mm3 (4.4-11.0)
[2023-04-24 06:47] LABS: Differential Indicated SCAN CRITERIA MET
[2023-04-24 07:04] LABS: Anion Gap 5 (5-15); BUN 16 mg/dL (7-18); BUN/Creat Ratio 23.2 RATIO (10-20); Chloride 102 mmol/L (98-107); Creatinine, Serum 0.69 mg/dL (0.70-1.30); EST Glomerular Filtration Rate 139 mL/min (>60); Est Glom Filt Rate - Afr Amer 168 mL/min (>60); Estimated Creatinine Clearance 173.73 ml/min; Glucose 105 mg/dL (74-106); Sodium Level 137 mmol/L (136-145)
[2023-04-24 07:10] LABS: Platelet Estimate ADEQUATE (ADEQ)
[2023-04-24] MEDS: 0.9% Saline Lock 10 ML Syringe IV ×2 (07:57→16:14)
[2023-04-24] MEDS: Ketorolac 30 MG/ML Syringe 15 MG IV ×2 (07:57→16:14)
[2023-04-24 08:53] VITALS: PULSE 80
[2023-04-24 08:56] VITALS: BP 131/70; PULSE 77; RESP 18; TEMP 36.7; O2SAT 96
--- NOTE | 2023-04-24 08:57 | NURSING ---
currently on emergency charting
--- NOTE | 2023-04-24 09:13 | PN.SURG_ITS ---
Subjective Subjective Patient seen and examined during AM rounds. He is found resting in bed. He states that he is hungry and reports that his abdominal pain is much improved. Objective Data Objective Data Vital Signs: Vital Signs Temp Pulse Resp BP Pulse Ox O2 Del Method O2 Flow Rate 98.0 F 77 18 131/70 H 96 Room Air 2 04/24/23 08:56 04/24/23 08:56 04/24/23 08:56 04/24/23 08:56 04/24/23 08:56 04/24/23 08:56 04/23/23 02:49 Oxygen Flow Rate (L/min) 2 Oxygen Delivery Method Room Air Weight: 316 lb 12.868 oz Body Mass Index (BMI) 40.6 Intake & Output: Intake and Output for Last 24 Hours 04/22/23 04/23/23 04/24/23 23:59 23:59 23:59 Intake Total 4688.33 / 4688.33 3427.25 / 3427.25 320 / 320 Output Total 3200 / 3200 Balance 1488.33 / 1488.33 3427.25 / 3427.25 320 / 320 Lab / Micro Data 04/24/23 05:51 04/24/23 05:51 Labs: Laboratory Results - last 24 hr 04/24/23 05:51: WBC 9.7, RBC 5.26, Hgb 13.4, Hct 43.7, MCV 83.1, MCH 25.5 L, MCHC 30.7 L, RDW Std Deviation 45.6 H, RDW Coeff of Kiet 15.0 H, Plt Count TNP, MPV 11.3, Immature Gran % (Auto) 1.000 H, Neut % (Auto) 70.5 H, Lymph % (Auto) 15.2 L, [place] % (Auto) 9.7, Eos % (Auto) 3.0, Baso % (Auto) 0.6, Absolute Neuts (auto) 6.8, Absolute Lymphs (auto) 1.47, Nucleated RBC % 0, Platelet Estimate ADEQUATE, Sodium 137, Potassium 3.0 L, Chloride 102, Carbon Dioxide 30.0, Anion Gap 5, BUN 16, Creatinine 0.69 L, Estim Creat Clear Calc 173.73, Est GFR (MDRD) Af Amer 168, Est GFR (MDRD) Non-Af 139, BUN/Creatinine Ratio 23.2 H, Glucose 105, Calcium 8.0 L Physical Exam Const oriented x3 and no apparent distress Resp normal respiratory effort GI GI Narrative: Mildly distended, operative dressings initially intact but all of these dressings are removed and overall his wounds are appear to be as expected. There appears to be some mild epidermal dehiscence of his upper midline incision and this is probed resulting in egress of seroma fluid so it is lightly packed as well with gauze to promote further drainage. Patient does have significant tenderness with removal of his dressings. Assessment & Plan Assessment/Plan (1) Small bowel obstruction: PLAN: Patient is postoperative day 3 and 5 from his small bowel resection and umbilical hernia repair, respectively. Overall he appears comfortable still (but did not well tolerate exploration of his upper midline incision). I did find evidence of a small seroma and so the area was packed and I will plan to reassess on exam tomorrow. He reports tolerance of a diet to date so we will plan to advance to a full liquid diet today. If he is able to tolerate 1 further advancement to a soft diet I find it reasonable to consider discharge to home. Would anticipate this to be hopefully tomorrow. Charges/Coding Visit Charges Inpatient E&M: 85278 Subs Hosp L2
--- NOTE | 2023-04-24 10:27 | NURSING ---
k+ not stocked in accudose-awaiting pt to get full liquid diet and k+ to be sent to unit
[2023-04-24] MEDS: Potassium Chloride Oral Tablet 20 MEQ 60 MEQ PO (13:29)
[2023-04-24] MEDS: Loratadine 10 MG Tablet PO (13:29)
[2023-04-24] MEDS: Sertraline 100 MG Tablet PO (13:30)
[2023-04-24] MEDS: Pantoprazole Sodium 20 MG Tablet PO (13:30)
[2023-04-24] MEDS: Enoxaparin 40 MG/0.4 ML Syringe SC (13:30)
[2023-04-24] MEDS: Lisinopril 10 MG Tablet PO (13:31)
--- NOTE | 2023-04-24 16:06 | PCM.PN.HOSP ---
Reason for Visit Reason for Visit: Diagnoses Unspecified intestinal obstruction, unspecified as to partial versus complete obstruction (04/21/23) Nausea with vomiting, unspecified (04/21/23) Postprocedural fever (04/21/23) Personal history of other diseases of the digestive system (04/21/23) Other specified postprocedural states (04/21/23) Objective Data Objective Data Vital Signs: Vital Signs Temp Pulse Resp BP Pulse Ox O2 Del Method O2 Flow Rate 98.0 F 77 18 131/70 H 96 Room Air 2 04/24/23 08:56 04/24/23 08:56 04/24/23 08:56 04/24/23 08:56 04/24/23 08:56 04/24/23 08:56 04/23/23 02:49 Oxygen Flow Rate (L/min) 2 Oxygen Delivery Method Room Air Weight: 316 lb 12.868 oz Body Mass Index (BMI) 40.6 Intake & Output: Intake and Output for Last 24 Hours 04/22/23 04/23/23 04/24/23 23:59 23:59 23:59 Intake Total 4688.33 / 4688.33 3427.25 / 3427.25 320 / 320 Output Total 3200 / 3200 Balance 1488.33 / 1488.33 3427.25 / 3427.25 320 / 320 Lab / Micro Data 04/24/23 05:51 04/24/23 05:51 Labs: Laboratory Results - last 24 hr 04/24/23 05:51: WBC 9.7, RBC 5.26, Hgb 13.4, Hct 43.7, MCV 83.1, MCH 25.5 L, MCHC 30.7 L, RDW Std Deviation 45.6 H, RDW Coeff of Kiet 15.0 H, Plt Count TNP, MPV 11.3, Immature Gran % (Auto) 1.000 H, Neut % (Auto) 70.5 H, Lymph % (Auto) 15.2 L, Kendall % (Auto) 9.7, Eos % (Auto) 3.0, Baso % (Auto) 0.6, Absolute Neuts (auto) 6.8, Absolute Lymphs (auto) 1.47, Nucleated RBC % 0, Platelet Estimate ADEQUATE, Sodium 137, Potassium 3.0 L, Chloride 102, Carbon Dioxide 30.0, Anion Gap 5, BUN 16, Creatinine 0.69 L, Estim Creat Clear Calc 173.73, Est GFR (MDRD) Af Amer 168, Est GFR (MDRD) Non-Af 139, BUN/Creatinine Ratio 23.2 H, Glucose 105, Calcium 8.0 L Micro: Microbiology 04/22/23 04:55 Blood Culture (Wb) - Right Forearm Blood Culture - Preliminary No growth in 48 hours. 04/22/23 04:40 Blood Culture (Wb) - Left Hand Blood Culture - Preliminary No growth in 48 hours. Physical Exam Narrative Seen and examined. Patient had flatus several bowel movements. Abdominal distention has improved. Diet advanced to full liquid. No fever. Patient stated recently had umbilical hernia repair surgery. Physical exam General: Alert, Oriented x3, Cooperative, morbid is a BMI 40.7 KG per square meter. HEENT: Atraumatic, PERRLA, EOMI, Normocephalic Oral: Oral mucosa moist. No Gingival or Mucosal Lesions/ Ulcerations Neck: Supple, No JVD, Negative Carotid Bruits Lungs: Air entry diminished in bilateral lung bases. No crepitation/rhonchi Cardiovascular: Regular rate, Regular Rhythm, Normal S1, Normal S2, No murmurs Abdomen: Bowel Sounds present. Soft, mild tenderness. Dressing is dry. No distention. : No renal angle tenderness. No suprapubic tenderness. Extremities: No edema, Capillary Refill Less than 3 Seconds Skin: No rashes, No breakdown Musculoskeletal: No Tenderness to Palpation of Joints or Extremities Neurological: Cranial nerves II-XII grossly intact, DTR 2+/4. No acute focal neurological deficit. Psych/Mental Status: Normal Affect, Appropriate. Assessment & Plan Assessment/Plan (1) Postoperative fever: PLAN: Plan Patient is a 37-year-old male with history of morbid obesity, anxiety/depression, hypertension who was recently hospitalized from 04/17 through 04/20 for an incarcerated ventral hernia. S/p laparoscopic ventral hernia repair with mesh on 04/[address] Genao. Patient tolerated the procedure well and was discharged home on 04/20. Re-presented to the emergency department on 04/21 with worsening abdominal pain as well as nausea and vomiting. CT abdomen pelvis showed a possible small bowel obstruction as well as possible free air in the abdomen. S/p exploratory laparoscopy with small bowel resection with Dr. Genao on 04/21. No procedural complications, was transferred to [facility] floor postoperatively without issue. Patient developed a fever of 102F and had worsening sinus tachycardia overnight on 04/22, medicine consulted for further evaluation. 1. Postoperative fever with worsening sinus tachycardia: Patient had CTPA done which did not show any PE. CT abdomen also did not show leak or abscess therefore continue antibiotic. Tmax 103.2 Fahrenheit. Aggressive incentive spirometry. EKG showed sinus tachycardia, known RBBB, no acute ST changes. Chest x-ray was nonacute. Symptomatic management for fever. Continue IV Zosyn. 04/23: Patient had several bowel movements. NG tube was removed yesterday. Patient did not had high grade temperature. Patient is being discharged from surgical service. Antibiotics discontinued. Leukocytosis improving 04/24: No fever. Patient did not had fever off antibiotic. Leukocytosis resolved. 2. Ventral hernia repair complicated by small bowel obstruction ? General surgery primary. S/p procedures on 04/19 and 04/21 as noted above. NG tube in place, patient NPO. Defer to general surgery for further management. Restart home p.o. medications as able. 04/24: Diet advanced to full liquid if tolerated further advanced to soft diet. Anticipate discharge tomorrow. Chronic medical conditions: ? Anxiety/depression: On home sertraline 100 mg daily. Last dose received on 04/20. Restart as able. ? Hypertension: Discontinue HCTZ as patient on IV fluid and has hypokalemia. Blood pressure is normal. DVT prophylaxis: SCDs CODE STATUS: Full code, unverified Clinical Impression(s) from Imaging Studies Abdomen/Pelvis CT 04/21/23 02:47 IMPRESSION: Small bowel obstruction as above with pneumatosis. Bowel ischemia is not excluded. Extensive soft tissue gas of the left anterior abdominal wall, which appears to remain extraperitoneal, although of uncertain source. (Additional history provided, patient is postoperative from recent hernia repair, likely accounting for abdominal wall gas. Wednesday pt had hernia sx with mesh, released yesterday and today unable to keep food down with pain). Critical finding results discussed with Dr. Lynn at 0352 hours eastern time 04/21/2023. However, there is rounded gas containing rim enhancing umbilical 4 cm fluid collection, which may represent abscess versus seroma in this postoperative patient. Inflammatory change extends to the underlying anterior mesentery. Dense patchy left lower lobe airspace disease, to include pneumonia. N.B. : The above Results were Read Back by Tejas Mcdermott MD to Rj Lynn MD, and understanding confirmed on 04/21/2023 03:53:58 (ET). Electronically Signed: Tejas Mcdermott MD at 3:59 EDT , ADDENDUM: 04/21/23 0406 IMPRESSION: Small bowel obstruction as above with pneumatosis. Bowel ischemia is not excluded. Extensive soft tissue gas of the left anterior abdominal wall, which appears to remain extraperitoneal, although of uncertain source. (Additional history provided, patient is postoperative from recent hernia repair, likely accounting for abdominal wall gas. Wednesday pt had hernia sx with mesh, released yesterday and today unable to keep food down with pain). Critical finding results discussed with Dr. Lynn at 0352 hours eastern time 04/21/2023. However, there is rounded gas containing rim enhancing umbilical 4 cm fluid collection, which may represent abscess versus seroma in this postoperative patient. Inflammatory change extends to the underlying anterior mesentery. Dense patchy left lower lobe airspace disease, to include pneumonia. N.B. : The above Results were Read Back by Tejas Mcdermott MD to Rj Lynn MD, and understanding confirmed on 04/21/2023 03:53:58 (ET). Electronically Signed: Tejas Mcdermott MD at 3:59 EDT , KUB X-Ray 04/21/23 05:12 IMPRESSION: Enteric tube tip coils over left upper quadrant gastric lucency, likely proximal stomach. Again noted left lung base airspace disease. Partially imaged dilated small bowel loops, consistent with known bowel obstruction. Electronically Signed: Tejas Mcdermott MD at 7:17 EDT , Chest X-Ray 04/22/23 01:23 IMPRESSION: No evidence of cardiopulmonary disease. Electronically Signed: Олег Engel DO at 2:10 EDT , KUB X-Ray 04/22/23 05:55 IMPRESSION: Small bowel obstruction. Electronically Signed: Олег Engel at 6:02 EDT , Chest/Abdomen/Pelvis CTA 04/22/23 06:19 IMPRESSION: 1. Dilated small bowel loops measuring up to 4.4 cm in diameter with air-fluid levels and thickened enhancing zhao with mild adjacent fat stranding. Findings may represent small bowel obstruction with the transition point at the anastomosis in the mid lower abdomen. Enteritis is difficult to exclude. 2. No evidence of an intra-abdominal abscess. 4.0 cm fluid collection in the anterior supraumbilical abdominal wall may represent a seroma or hematoma with a developing abscess difficult to exclude. No rim enhancement to suggest abscess at this time. 3. Left basilar atelectasis versus infiltrates. 4. Fatty infiltration of the liver. Charges/Coding Visit Charges Inpatient E&M: 43392 Subs Hosp L2
[2023-04-24 16:23] VITALS: BP 121/80; PULSE 84; RESP 18; TEMP 36.8; O2SAT 97
[2023-04-24 17:02] VITALS: O2SAT 95
[2023-04-24 20:00] VITALS: BP 115/69; PULSE 87; RESP 18; TEMP 37.2; O2SAT 98
[2023-04-24] MEDS: oxyCODONE 5 MG Tablet PO (20:15)
[2023-04-24] MEDS: Acetaminophen 325 MG Tablet 650 MG PO (20:16)
[2023-04-25] MEDS: Ketorolac 30 MG/ML Syringe 15 MG IV ×3 (00:05→16:57)
[2023-04-25] MEDS: 0.9% Saline Lock 10 ML Syringe IV ×4 (00:06→17:47)
[2023-04-25 03:05] VITALS: BP 128/65; PULSE 88; RESP 18; TEMP 36.1; O2SAT 97
[2023-04-25] MEDS: Loratadine 10 MG Tablet PO (08:57)
[2023-04-25] MEDS: Sertraline 100 MG Tablet PO ×2 (08:58→08:59)
[2023-04-25] MEDS: Pantoprazole Sodium 20 MG Tablet PO (08:59)
[2023-04-25] MEDS: Enoxaparin 40 MG/0.4 ML Syringe SC (08:59)
[2023-04-25] MEDS: Lisinopril 10 MG Tablet PO (08:59)
[2023-04-25 09:06] VITALS: BP 121/63; PULSE 90; RESP 18; TEMP 36.5; O2SAT 98
[2023-04-25] MEDS: Fluticasone 0.05% 1 SPRAY NASAL.SRY 2 SPRAY NASAL (10:43)
--- NOTE | 2023-04-25 10:56 | PCM.PN.HOSP ---
Reason for Visit Reason for Visit: Diagnoses Unspecified intestinal obstruction, unspecified as to partial versus complete obstruction (04/21/23) Nausea with vomiting, unspecified (04/21/23) Postprocedural fever (04/21/23) Personal history of other diseases of the digestive system (04/21/23) Other specified postprocedural states (04/21/23) Objective Data Objective Data Vital Signs: Vital Signs Temp Pulse Resp BP Pulse Ox O2 Del Method O2 Flow Rate 97.7 F L 90 18 121/63 H 98 Room Air 97 04/25/23 09:06 04/25/23 09:06 04/25/23 09:06 04/25/23 09:06 04/25/23 09:06 04/25/23 09:06 04/25/23 07:57 Oxygen Flow Rate (L/min) 97 Oxygen Delivery Method Room Air Weight: 316 lb 12.868 oz Body Mass Index (BMI) 40.6 Intake & Output: Intake and Output for Last 24 Hours 04/23/23 04/24/23 04/25/23 23:59 23:59 23:59 Intake Total 3427.25 / 3427.25 320 / 320 Balance 3427.25 / 3427.25 320 / 320 Lab / Micro Data 04/24/23 05:51 04/24/23 05:51 Micro: Microbiology 04/22/23 04:55 Blood Culture (Wb) - Right Forearm Blood Culture - Preliminary No growth in 48 hours. 04/22/23 04:40 Blood Culture (Wb) - Left Hand Blood Culture - Preliminary No growth in 48 hours. Physical Exam Narrative Seen and examined. Patient had flatus and several bowel movements. Abdominal distention has improved. Patient on soft diet advanced to regular diet. Advised to avoid hard and chewy meat. No fever. Patient stated recently had umbilical hernia repair surgery. Physical exam General: Alert, Oriented x3, Cooperative, morbid is a BMI 40.7 KG per square meter. HEENT: Atraumatic, PERRLA, EOMI, Normocephalic Oral: Oral mucosa moist. No Gingival or Mucosal Lesions/ Ulcerations Neck: Supple, No JVD, Negative Carotid Bruits Lungs: Air entry diminished in bilateral lung bases. No crepitation/rhonchi Cardiovascular: Regular rate, Regular Rhythm, Normal S1, Normal S2, No murmurs Abdomen: Bowel Sounds present. Soft, mild tenderness. Dressing is dry. No distention. : No renal angle tenderness. No suprapubic tenderness. Extremities: No edema, Capillary Refill Less than 3 Seconds Skin: Surgical wound in the abdomen. Small. No discharge. Musculoskeletal: No Tenderness to Palpation of Joints or Extremities Neurological: Cranial nerves II-XII grossly intact, DTR 2+/4. No acute focal neurological deficit. Psych/Mental Status: Normal Affect, Appropriate. Assessment & Plan Assessment/Plan (1) Postoperative fever: PLAN: Plan Patient is a 37-year-old male with history of morbid obesity, anxiety/depression, hypertension who was recently hospitalized from 04/17 through 04/20 for an incarcerated ventral hernia. S/p laparoscopic ventral hernia repair with mesh on 04/[address] Genao. Patient tolerated the procedure well and was discharged home on 04/20. Re-presented to the emergency department on 04/21 with worsening abdominal pain as well as nausea and vomiting. CT abdomen pelvis showed a possible small bowel obstruction as well as possible free air in the abdomen. S/p exploratory laparoscopy with small bowel resection with Dr. Genao on 04/21. No procedural complications, was transferred to [facility] postoperatively without issue. Patient developed a fever of 102F and had worsening sinus tachycardia overnight on 04/22, medicine consulted for further evaluation. 1. Postoperative fever with worsening sinus tachycardia: Patient had CTPA done which did not show any PE. CT abdomen also did not show leak or abscess therefore continue antibiotic. Tmax 103.2 Fahrenheit. Aggressive incentive spirometry. EKG showed sinus tachycardia, known RBBB, no acute ST changes. Chest x-ray was nonacute. Symptomatic management for fever. Continue IV Zosyn. 04/23: Patient had several bowel movements. NG tube was removed yesterday. Patient did not had high grade temperature. Patient is being discharged from surgical service. Antibiotics discontinued. Leukocytosis improving 04/24: No fever. Patient did not had fever off antibiotic. Leukocytosis resolved. 04/25: Fever resolved, no fever for past 48 hours off antibiotics. 2. Ventral hernia repair complicated by small bowel obstruction ? General surgery primary. S/p procedures on 04/19 and 04/21 as noted above. NG tube in place, patient NPO. Defer to general surgery for further management. Restart home p.o. medications as able. 04/24: Diet advanced to full liquid if tolerated further advanced to soft diet. Patient has small gaping upper surgical wound. Packing was removed by the surgeon. Discharge instructions and follow-up as per surgeon. Chronic medical conditions: ? Anxiety/depression: On home sertraline 100 mg daily. Last dose received on 04/20. Restart as able. ? Hypertension: Discontinue HCTZ as patient on IV fluid and has hypokalemia. Blood pressure is normal. DVT prophylaxis: SCDs CODE STATUS: Full code, unverified Clinical Impression(s) from Imaging Studies Abdomen/Pelvis CT 04/21/23 02:47 IMPRESSION: Small bowel obstruction as above with pneumatosis. Bowel ischemia is not excluded. Extensive soft tissue gas of the left anterior abdominal wall, which appears to remain extraperitoneal, although of uncertain source. (Additional history provided, patient is postoperative from recent hernia repair, likely accounting for abdominal wall gas. Wednesday pt had hernia sx with mesh, released yesterday and today unable to keep food down with pain). Critical finding results discussed with Dr. Lynn at 0352 hours eastern time 04/21/2023. However, there is rounded gas containing rim enhancing umbilical 4 cm fluid collection, which may represent abscess versus seroma in this postoperative patient. Inflammatory change extends to the underlying anterior mesentery. Dense patchy left lower lobe airspace disease, to include pneumonia. N.B. : The above Results were Read Back by Tejas Mcdermott MD to Rj Lynn MD, and understanding confirmed on 04/21/2023 03:53:58 (ET). Electronically Signed: Tejas Mcdermott MD at 3:59 EDT , ADDENDUM: 04/21/23 0406 IMPRESSION: Small bowel obstruction as above with pneumatosis. Bowel ischemia is not excluded. Extensive soft tissue gas of the left anterior abdominal wall, which appears to remain extraperitoneal, although of uncertain source. (Additional history provided, patient is postoperative from recent hernia repair, likely accounting for abdominal wall gas. Wednesday pt had hernia sx with mesh, released yesterday and today unable to keep food down with pain). Critical finding results discussed with Dr. Lynn at 0352 hours eastern time 04/21/2023. However, there is rounded gas containing rim enhancing umbilical 4 cm fluid collection, which may represent abscess versus seroma in this postoperative patient. Inflammatory change extends to the underlying anterior mesentery. Dense patchy left lower lobe airspace disease, to include pneumonia. N.B. : The above Results were Read Back by Tejas Mcdermott MD to Rj Lynn MD, and understanding confirmed on 04/21/2023 03:53:58 (ET). Electronically Signed: Tejas Mcdermott MD at 3:59 EDT , KUB X-Ray 04/21/23 05:12 IMPRESSION: Enteric tube tip coils over left upper quadrant gastric lucency, likely proximal stomach. Again noted left lung base airspace disease. Partially imaged dilated small bowel loops, consistent with known bowel obstruction. Electronically Signed: Tejas Mcdermott MD at 7:17 EDT , Chest X-Ray 04/22/23 01:23 IMPRESSION: No evidence of cardiopulmonary disease. Electronically Signed: Олег Engel DO at 2:10 EDT , KUB X-Ray 04/22/23 05:55 IMPRESSION: Small bowel obstruction. Electronically Signed: Олег Engel DO at 6:02 EDT , Chest/Abdomen/Pelvis CTA 04/22/23 06:19 IMPRESSION: 1. Dilated small bowel loops measuring up to 4.4 cm in diameter with air-fluid levels and thickened enhancing zhao with mild adjacent fat stranding. Findings may represent small bowel obstruction with the transition point at the anastomosis in the mid lower abdomen. Enteritis is difficult to exclude. 2. No evidence of an intra-abdominal abscess. 4.0 cm fluid collection in the anterior supraumbilical abdominal wall may represent a seroma or hematoma with a developing abscess difficult to exclude. No rim enhancement to suggest abscess at this time. 3. Left basilar atelectasis versus infiltrates. 4. Fatty infiltration of the liver. Charges/Coding Visit Charges Inpatient E&M: 24829 Subs Hosp L2
--- NOTE | 2023-04-25 11:22 | DCINST_ITS ---
Discharge Instructions Diet Discharge Diet: Light diet - advance as tolerated Activity Discharge Activity: May Shower Lifting Restrictions: Avoid lifting more than 15 pounds for 4 weeks postoperatively Dressing / Incision Call your doctor if your incision/area has: Continuous Slow Oozing, Sudden Increased Bleeding, Increased Pain/ Swelling, Increased Redness, Foul Smelling Discharge and Swelling at the incision site Call your doctor if you observe: Fever of 101 or Higher, Inability to urinate and Inability to have a bowel movement Cleanse incision/area with: Soap & Water Additional Dressing/Incision Instructions:: Please leave Steri-Strips intact until they fall off spontaneously or are taken off at your follow-up visit Follow Up Care Please Follow Up With: Tejas Genao MD Test Results: Test results from this visit will be discussed in further detail at your follow- up appointment, if applicable. Discharge Plan Admission Admit Date/Time: 04/21/23 06:14 Primary Reason for Your Visit: Postoperative small bowel obstruction requiring reoperation Attending Provider: Tejas Genao Primary Care Provider: Giuseppe Sheets Consulting Providers: Bandar Saxena; Everton Faulkner Discharge Orders/Prescriptions Prescriptions: New enoxaparin 40 mg/0.4 mL Syringe 40 mg subcut DAILY 5 Days Qty: 2 0RF Continued lisdexamfetamine [Vyvanse] 70 MG capsule 70 mg PO DAILY meloxicam 15 mg tablet 15 mg PO DAILY Patient Comments: TAKE 1 TABLET BY MOUTH ONCE DAILY. TAKE WITH FOOD. sertraline 100 mg tablet 100 mg PO DAILY lisinopril 10 mg tablet 10 mg PO DAILY Patient Comments: TAKE 1 TABLET BY MOUTH EVERY DAY hydrochlorothiazide 12.5 mg capsule 12.5 mg PO DAILY albuterol sulfate 90 mcg/actuation HFA aerosol inhaler 2 puff INHALATION Q4H PRN (Reason: shortness of breath) Patient Comments: INHALE 2 PUFFS BY MOUTH EVERY 6 HOURS NEEDED DIRECTED fluticasone propionate 50 mcg/actuation spray,suspension 2 spray INTRANASAL DAILY Patient Comments: SPRAY 2 SPRAYS INTO EACH NOSTRIL EVERY DAY omeprazole 20 mg capsule,delayed release(DR/EC) 20 mg PO DAILY cetirizine [24Hour Allergy] 10 mg tablet 10 mg PO DAILY docusate sodium 100 mg Capsule 100 mg PO BID 14 Days Qty: 28 0RF oxycodone 5 mg Tablet 5 mg PO Q6H PRN PRN (Reason: Pain Score 4-10) 10 Days Qty: 30 0RF Referrals / Follow Up: Giuseppe Sheets MD [Primary Care Provider] - Disposition Disposition (needs filled in before D/C Order can be placed): Home, Self Care
--- NOTE | 2023-04-25 11:25 | PCM.PN.SRG ---
Subjective Subjective Patient seen and examined during AM rounds. He is found sleeping on my arrival to the room. He states that he had difficult overnight course because he was unable to rest?having slept too much yesterday. He denies any abdominal pain and states that his abdomen feels great. He denies any nausea in response to his full liquid diet yesterday. Objective Data Objective Data Vital Signs: Vital Signs Temp Pulse Resp BP Pulse Ox O2 Del Method O2 Flow Rate 97.7 F L 90 18 121/63 H 98 Room Air 97 04/25/23 09:06 04/25/23 09:06 04/25/23 09:06 04/25/23 09:06 04/25/23 09:06 04/25/23 09:06 04/25/23 07:57 Oxygen Flow Rate (L/min) 97 Oxygen Delivery Method Room Air Weight: 316 lb 12.868 oz Body Mass Index (BMI) 40.6 Intake & Output: Intake and Output for Last 24 Hours 04/23/23 04/24/23 04/25/23 23:59 23:59 23:59 Intake Total 3427.25 / 3427.25 320 / 320 Balance 3427.25 / 3427.25 320 / 320 Lab / Micro Data 04/24/23 05:51 04/24/23 05:51 Micro: Microbiology 04/22/23 04:55 Blood Culture (Wb) - Right Forearm Blood Culture - Preliminary No growth in 48 hours. 04/22/23 04:40 Blood Culture (Wb) - Left Hand Blood Culture - Preliminary No growth in 48 hours. Physical Exam Const oriented x3 and no apparent distress Resp normal respiratory effort GI GI Narrative: Minimally distended, drainage from upper midline incision appears to have stopped and is merely dried in the gauze dressing. When this is pulled there is no further evidence of drainage. There is no erythema about this incision or any of the others. Patient denies tenderness with palpation x4 quadrants. Assessment & Plan Assessment/Plan (1) Small bowel obstruction: PLAN: Patient is postoperative day 4 and 6 from his small bowel resection and umbilical hernia repair, respectively. He is comfortable today and denies any discomfort during his abdominal exam. He also has tolerated a full liquid diet without difficulty. I have encouraged him to shower today to get some of the crusted drainage off of his abdominal wounds and we will further advance him to a transitional diet. If these things are done without issue, will plan for discharge to home later today. Plan has also been discussed with consulting hospitalist. We will continue a short course of enoxaparin upon discharge for postoperative prophylaxis. Charges/Coding Visit Charges Inpatient E&M: 67550 Subs Hosp L2
[2023-04-25 14:26] VITALS: BP 155/95; PULSE 100; RESP 18; TEMP 36.6; O2SAT 99
[2023-04-25] MEDS: Ondansetron 4 MG/2 ML Vial IV (14:34)
--- NOTE | 2023-04-25 16:00 | RAD_ITS ---
STUDY: X-RAY - ABDOMEN/PELVIS REASON FOR EXAM: Male, 37 years old. recent SBO and sx, f/u emesis TECHNIQUE: Single AP view of the abdomen / pelvis. COMPARISON: 04/22/2023 FINDINGS: Normal visualized lung bases. There are dilated loops of the small intestine with a non-distended colon consistent with a small bowel obstruction. The visualized liver, spleen and kidneys are grossly normal in size and morphology. Normal soft tissue structures. Normal visualized osseous structures. RAD/Abdomen Single View (Portable) IMPRESSION: Moderate small bowel obstruction. Electronically Signed: Jose Choudhury MD at 19:28 EDT ,
[2023-04-25] MEDS: 0.9% Normal Saline (1000mL) 1,000 ML 125 ML IV (16:56)
[2023-04-25 18:19] LABS: Anion Gap 8 (5-15); BUN 11 mg/dL (7-18); BUN/Creat Ratio 17.4 RATIO (10-20); Calcium,Total 8.1 mg/dL (8.5-10.1); Chloride 105 mmol/L (98-107); Creatinine, Serum 0.63 mg/dL (0.70-1.30); EST Glomerular Filtration Rate 153 mL/min (>60); Est Glom Filt Rate - Afr Amer 185 mL/min (>60); Estimated Creatinine Clearance 190.28 ml/min; Glucose 100 mg/dL (74-106); Magnesium 2.4 mg/dL (1.6-2.6); Potassium 3.4 mmol/L (3.5-5.1); Sodium Level 136 mmol/L (136-145)
[2023-04-25 18:31] LABS: Phosphorus 3.9 mg/dL (2.5-4.9)
[2023-04-25] MEDS: Potassium Chloride 10mEq/100mL 10 MEQ/100 ML IV.SOLN. 100 MEQ IV BOLUS ×2 (21:03→22:17)
[2023-04-25 22:40] VITALS: BP 122/62; PULSE 93; RESP 18; TEMP 37.6; O2SAT 96
[2023-04-26] MEDS: Ketorolac 30 MG/ML Syringe 15 MG IV ×2 (00:16→07:35)
[2023-04-26] MEDS: 0.9% Saline Lock 10 ML Syringe IV (00:17)
[2023-04-26] MEDS: 0.9% Normal Saline (1000mL) 1,000 ML 125 ML IV ×2 (00:17→07:36)
[2023-04-26 04:00] VITALS: BP 129/70; PULSE 81; RESP 18; TEMP 37.2; O2SAT 97
[2023-04-26 06:31] LABS: Absolute Lymphocyte Count 1.44 X10^3/uL (0.83-4.51); Absolute Neutrophil Count 9.8 X10^3/uL (2.0-7.7); Basophil# 0.06 X10^3/uL; Basophil% 0.5 % (0-1); Eosinophil# 0.31 X10^3/uL; Eosinophils% 2.5 % (0-5); Hematocrit 39.9 % (40-54); Hemoglobin 12.7 g/dL (13.0-16.5); Lymphocyte # 1.44 X10^3/ul (0.83-4.51); Lymphocyte % 11.4 % (19-41); Mean Corp Hgb Conc 31.8 g/dL (32-36); Mean Corpuscular Hgb 26.1 pg (27.0-32.0); Mean Corpuscular Volume 82.1 fL (80-94); Mean Platelet Vol. 10.6 fl (6.2-12.0); Monocyte# 0.84 X10^3/uL; Monocyte% 6.7 % (0-10); NRBC Flagged by Analyzer 0 % (0-5); Neutrophil # 9.75 X10^3/uL (2.7-7.7); Neutrophil % 77.4 % (47-70); Platelet Count 201 K/mm3 (150-450); RBC Distribution Width CV 14.8 % (11.6-14.6); RBC Distribution Width SD 44.5 fl (35.1-43.9); Red Blood Count 4.86 M/mm3 (4.6-6.2); White Blood Count 12.6 K/mm3 (4.4-11.0)
[2023-04-26 06:57] LABS: Anion Gap 4 (5-15); BUN 11 mg/dL (7-18); BUN/Creat Ratio 12.9 RATIO (10-20); Calcium,Total 8.1 mg/dL (8.5-10.1); Chloride 107 mmol/L (98-107); Creatinine, Serum 0.85 mg/dL (0.70-1.30); EST Glomerular Filtration Rate 108 mL/min (>60); Est Glom Filt Rate - Afr Amer 131 mL/min (>60); Estimated Creatinine Clearance 141.03 ml/min; Glucose 102 mg/dL (74-106); Magnesium 2.3 mg/dL (1.6-2.6); Potassium 3.4 mmol/L (3.5-5.1); Sodium Level 141 mmol/L (136-145)
--- NOTE | 2023-04-26 07:41 | PN.HOSP_ITS ---
Reason for Visit Reason for Visit: Diagnoses Unspecified intestinal obstruction, unspecified as to partial versus complete o bstruction (04/21/23) Nausea with vomiting, unspecified (04/21/23) Postprocedural fever (04/21/23) Personal history of other diseases of the digestive system (04/21/23) Other specified postprocedural states (04/21/23) Objective Data Objective Data Vital Signs: Vital Signs Temp Pulse Resp BP Pulse Ox O2 Del Method O2 Flow Rate 98.9 F 81 18 129/70 H 97 Room Air 97 04/26/23 04:00 04/26/23 04:00 04/26/23 04:00 04/26/23 04:00 04/26/23 04:00 04/26/23 04:00 04/25/23 07:57 Oxygen Flow Rate (L/min) 97 Oxygen Delivery Method Room Air Weight: 316 lb 12.868 oz Body Mass Index (BMI) 40.6 Intake & Output: Intake and Output for Last 24 Hours 04/24/23 04/25/23 04/26/23 23:59 23:59 23:59 Intake Total 320 / 320 100 / 200 1933.33 / 1933.33 Balance 320 / 320 100 / 200 1933.33 / 1933.33 Lab / Micro Data 04/26/23 06:00 04/26/23 06:00 Labs: Laboratory Results - last 24 hr 04/25/23 17:45: Sodium 136, Potassium 3.4 L, Chloride 105, Carbon Dioxide 23.0, Anion Gap 8, BUN 11, Creatinine 0.63 L, Estim Creat Clear Calc 190.28, Est GFR (MDRD) Af Amer 185, Est GFR (MDRD) Non-Af 153, BUN/Creatinine Ratio 17.4, Glucose 100, Calcium 8.1 L, Phosphorus 3.9, Magnesium 2.4 04/26/23 06:00: WBC 12.6 H, RBC 4.86, Hgb 12.7 L, Hct 39.9 L, MCV 82.1, MCH 26.1 L, MCHC 31.8 L, RDW Std Deviation 44.5 H, RDW Coeff of Kiet 14.8 H, Plt Count 201, MPV 10.6, Immature Gran % (Auto) 1.500 H, Neut % (Auto) 77.4 H, Lymph % (Auto) 11.4 L, [place] % (Auto) 6.7, Eos % (Auto) 2.5, Baso % (Auto) 0.5, Absolute Neuts (auto) 9.8 H, Absolute Lymphs (auto) 1.44, Nucleated RBC % 0, Sodium 141, Potassium 3.4 L, Chloride 107, Carbon Dioxide 30.0, Anion Gap 4 L, BUN 11, Creatinine 0.85, Estim Creat Clear Calc 141.03, Est GFR (MDRD) Af Amer 131, Est GFR (MDRD) Non-Af 108, BUN/Creatinine Ratio 12.9, Glucose 102, Calcium 8.1 L, M agnesium 2.3 Micro: Microbiology 04/22/23 04:55 Blood Culture (Wb) - Right Forearm Blood Culture - Preliminary No growth in 48 hours. 04/22/23 04:40 Blood Culture (Wb) - Left Hand Blood Culture - Preliminary No growth in 48 hours. Radiography Diagnostic Testing: Radiology Impression KUB X-Ray 04/25/23 16:00 IMPRESSION: Moderate small bowel obstruction. Electronically Signed: Jose Choudhury MD at 19:28 EDT , Physical Exam Narrative Seen and examined. Patient had vomiting last night. Patient is moving bowel. Abdominal distention has improved but sometimes feels bloating.Was on regular diet but made n.p.o. for barium follow-through. No fever. Patient stated recently had umbilical hernia repair surgery. Physical exam General: Alert, Oriented x3, Cooperative, morbid is a BMI 40.7 KG per square meter. HEENT: Atraumatic, PERRLA, EOMI, Normocephalic Oral: Oral mucosa moist. No Gingival or Mucosal Lesions/ Ulcerations Neck: Supple, No JVD, Negative Carotid Bruits Lungs: Air entry diminished in bilateral lung bases. No crepitation/rhonchi Cardiovascular: Regular rate, Regular Rhythm, Normal S1, Normal S2, No murmurs Abdomen: Bowel Sounds present. Soft, mild tenderness. Dressing is dry. No distention. : No renal angle tenderness. No suprapubic tenderness. Extremities: No edema, Capillary Refill Less than 3 Seconds Skin: Surgical wound in the abdomen. Small. No discharge. Musculoskeletal: No Tenderness to Palpation of Joints or Extremities Neurological: Cranial nerves II-XII grossly intact, DTR 2+/4. No acute focal n eurological deficit. Psych/Mental Status: Normal Affect, Appropriate. Assessment & Plan Assessment/Plan (1) Postoperative fever: PLAN: Plan Patient is a 37-year-old male with history of morbid obesity, anxiety/depression, hypertension who was recently hospitalized from 04/17 through 04/20 for an incarcerated ventral hernia. S/p laparoscopic ventral hernia repair with mesh on 04/[address] Genao. Patient tolerated the procedure well and was discharged home on 04/20. Re-presented to the emergency department on 04/21 with worsening abdominal pain as well as nausea and vomiting. CT abdomen pelvis showed a possible small bowel obstruction as well as possible free air in the abdomen. S/p exploratory laparoscopy with small bowel resection with Dr. Genao on 04/21. No procedural complications, was transferred to [facility] postoperatively without issue. Patient developed a fever of 102F and had worsening sinus tachycardia overnight on 04/22, medicine consulted for further evaluation. 1. Postoperative fever with worsening sinus tachycardia: Patient had CTPA done which did not show any PE. CT abdomen also did not show leak or abscess therefore continue antibiotic. Tmax 103.2 Fahrenheit. Aggressive incentive spirometry. EKG showed sinus tachycardia, known RBBB, no acute ST changes. Chest x-ray was nonacute. Symptomatic management for fever. Continue IV Zosyn. 04/23: Patient had several bowel movements. NG tube was removed yesterday. Patient did not had high grade temperature. Patient is being discharged from surgical service. Antibiotics discontinued. Leukocytosis improving 04/24: No fever. Patient did not had fever off antibiotic. Leukocytosis resolved. 04/25: Fever resolved, no fever for past 48 hours off antibiotics. 04/26: Patient had bradycardia and will follow through. Results pending. Clinically patient is moving bowel but complains of mild protein on regular diet. Patient had vomiting last night. 2. Ventral hernia repair complicated by small bowel obstruction ? General surgery primary. S/p procedures on 04/19 and 04/21 as noted above. NG tube in place, patient NPO. Defer to general surgery for further management. Restart home p.o. medications as able. 04/24: Diet advanced to full liquid if tolerated further advanced to soft diet. Patient has small gaping upper surgical wound. Packing was removed by the surgeon. Discharge instructions and follow-up as per surgeon. 04/25 Chronic medical conditions: ? Anxiety/depression: On home sertraline 100 mg daily. Last dose received on 04/20. Restart as able. ? Hypertension: Discontinue HCTZ as patient on IV fluid and has hypokalemia. Blood pressure is normal. DVT prophylaxis: SCDs CODE STATUS: Full code, unverified Clinical Impression(s) from Imaging Studies Abdomen/Pelvis CT 04/21/23 02:47 IMPRESSION: Small bowel obstruction as above with pneumatosis. Bowel ischemia is not excluded. Extensive soft tissue gas of the left anterior abdominal wall, which appears to remain extraperitoneal, although of uncertain source. (Additional history provided, patient is postoperative from recent hernia repair, likely accounting for abdominal wall gas. Wednesday pt had hernia sx with mesh, released yesterday and today unable to keep food down with pain). Critical finding results discussed with Dr. Lynn at 0352 hours eastern time 04/21/2023. However, there is rounded gas containing rim enhancing umbilical 4 cm fluid collection, which may represent abscess versus seroma in this postoperative patient. Inflammatory change extends to the underlying anterior mesentery. Dense patchy left lower lobe airspace disease, to include pneumonia. N.B. : The above Results were Read Back by Tejas Mcdermott MD to Rj Lynn MD, and understanding confirmed on 04/21/2023 03:53:58 (ET). Electronically Signed: Tejas Mcdermott MD at 3:59 EDT , ADDENDUM: 04/21/23 0406 IMPRESSION: Small bowel obstruction as above with pneumatosis. Bowel ischemia is not excluded. Extensive soft tissue gas of the left anterior abdominal wall, which appears to remain extraperitoneal, although of uncertain source. (Additional history provided, patient is postoperative from recent hernia repair, likely accounting for abdominal wall gas. Wednesday pt had hernia sx with mesh, released yesterday and today unable to keep food down with pain). Critical finding results discussed with Dr. Lynn at 0352 hours eastern time 04/21/2023. However, there is rounded gas containing rim enhancing umbilical 4 cm fluid collection, which may represent abscess versus seroma in this postoperative patient. Inflammatory change extends to the underlying anterior mesentery. Dense patchy left lower lobe airspace disease, to include pneumonia. N.B. : The above Results were Read Back by Tejas Mcdermott MD to Rj Lynn MD, and understanding confirmed on 04/21/2023 03:53:58 (ET). Electronically Signed: Tejas Mcdermott MD at 3:59 EDT , KUB X-Ray 04/21/23 05:12 IMPRESSION: Enteric tube tip coils over left upper quadrant gastric lucency, likely proximal stomach. Again noted left lung base airspace disease. Partially imaged dilated small bowel loops, consistent with known bowel obstruction. Electronically Signed: Tejas Mcdermott MD at 7:17 EDT , Chest X-Ray 04/22/23 01:23 IMPRESSION: No evidence of cardiopulmonary disease. Electronically Signed: Олег Engel DO at 2:10 EDT , KUB X-Ray 04/22/23 05:55 IMPRESSION: Small bowel obstruction. Electronically Signed: Олег Engel DO at 6:02 EDT , Chest/Abdomen/Pelvis CTA 04/22/23 06:19 IMPRESSION: 1. Dilated small bowel loops measuring up to 4.4 cm in diameter with air-fluid levels and thickened enhancing zhao with mild adjacent fat stranding. Findings may represent small bowel obstruction with the transition point at the anastomosis in the mid lower abdomen. Enteritis is difficult to exclude. 2. No evidence of an intra-abdominal abscess. 4.0 cm fluid collection in the anterior supraumbilical abdominal wall may represent a seroma or hematoma with a developing abscess difficult to exclude. No rim enhancement to suggest abscess at this time. 3. Left basilar atelectasis versus infiltrates. 4. Fatty infiltration of the liver. Charges/Coding Visit Charges Inpatient E&M: 66811 Subs Hosp L2
--- NOTE | 2023-04-26 07:47 | MDS.RN ---
emergency charting continues
[2023-04-26 07:49] VITALS: BP 119/72; PULSE 84; RESP 18; TEMP 36.6; O2SAT 94
[2023-04-26 07:50] VITALS: PULSE 84
--- NOTE | 2023-04-26 08:30 | RAD_ITS ---
CLINICAL HISTORY: Male, 37 years old. Ileus versus small bowel obstruction. PROCEDURE: Gastrografin small bowel follow-through examination. TECHNIQUE: (All elements of maximal sterile barrier technique followed, including US elements as applicable) The patient ingested Gastrografin. A small bowel follow-through examination was obtained. There is evidence of dilated small bowel loops. Contrast is seen within the right hemicolon at 110 minutes following the ingestion. RAD/Small Bowel Series Only IMPRESSION: Delayed small bowel follow-through examination. Findings suggestive of either a partial small bowel obstruction versus ileus. Electronically Signed: Tad Alvarado MD at 14:44 EDT ,
--- NOTE | 2023-04-26 09:32 | NURSING ---
@ approx 0830, pt taken via bed to radiology dept for testing
--- NOTE | 2023-04-26 09:44 | NURSING ---
pt remains off unit in radiology
--- NOTE | 2023-04-26 10:14 | NURSING ---
pt remains off unit for testing
--- NOTE | 2023-04-26 11:11 | NURSING ---
pt has returned from radiology
--- NOTE | 2023-04-26 11:22 | NURSING ---
pt in BR having large BM
--- NOTE | 2023-04-26 13:54 | CASEMGMT ---
TC to check cost of lovenox at [employer], it is $10. RN CM into pt room, pt states he can have his mom administer the lovenox to him. He states that she has given his sister injections in the abdomen before. Pt denies any homegoing needs.
[2023-04-26] MEDS: Lisinopril 10 MG Tablet PO (14:36)
[2023-04-26] MEDS: Acetaminophen 325 MG Tablet 650 MG PO (14:36)
[2023-04-26] MEDS: Pantoprazole Sodium 20 MG Tablet PO ×2 (14:36→14:38)
[2023-04-26] MEDS: Fluticasone 0.05% 1 SPRAY NASAL.SRY 2 SPRAY NASAL (14:37)
[2023-04-26] MEDS: Enoxaparin 40 MG/0.4 ML Syringe SC (14:38)
[2023-04-26] MEDS: Loratadine 10 MG Tablet PO (14:45)
[2023-04-26 14:46] VITALS: BP 145/80; PULSE 89; RESP 18; TEMP 36.9; O2SAT 94
--- NOTE | 2023-04-26 15:11 | PHA.DC.MC.R ---
Pharmacy [facility] has performed discharge medication reconciliation and counseling for this patient. The patient's discharge medication list was reviewed for discrepancies and discrepancies were resolved. The patient was counseled on the following discharge medications and changes in medications for homegoing were reviewed. The Reason for Use, instructions for use, and potential side effects were reviewed for all new medications. The patient's questions regarding all of their medications were answered. 1. Enoxaparin 40 mg subcutaneously daily x 5 days The patient was able to verbally demonstrate an understanding of their discharge medications. Medications at Discharge Home Medications lisdexamfetamine 70 mg capsule (Vyvanse) 70 mg PO DAILY 12/03/15 albuterol sulfate 90 mcg/actuation aerosol inhaler 2 puff inhalation Q4H PRN shortness of breath 04/17/23 cetirizine 10 mg tablet (24Hour Allergy) 10 mg PO DAILY allergies 04/17/23 fluticasone propionate 50 mcg/actuation nasal spray,suspension 2 spray intranasal DAILY allergies 04/17/23 hydrochlorothiazide 12.5 mg capsule 12.5 mg PO DAILY HTN 04/17/23 lisinopril 10 mg tablet 10 mg PO DAILY 04/17/23 meloxicam 15 mg tablet 15 mg PO DAILY 04/17/23 omeprazole 20 mg capsule,delayed release 20 mg PO DAILY 04/17/23 sertraline 100 mg tablet 100 mg PO DAILY depression 04/17/23 docusate sodium 100 mg capsule 100 mg PO BID 14 days #28 caps 04/20/23 oxycodone 5 mg tablet 5 mg PO Q6H PRN PRN Pain Score 4-10 10 days #30 tabs 04/20/23 enoxaparin 40 mg/0.4 mL subcutaneous syringe 40 mg (0.4 mL) subcut DAILY 5 days #2 mL 04/25/23
== END 2023-04-26 15:13 | disposition home or self-care (01) | DRG 331 ==
LOC: ED 05:16 → MS3 05:56
PROVIDERS: Hospitalist; Physician Assistant; Surgery; Admitting Provider Surgery; Emergency Provider Emergency Medicine; PCP Family Medicine; Visit Provider Surgery
PROC: 0DB80ZZ Excision of Small Intestine, Open Approach (ICD-10-PCS; CPT 44202; principal; 2023-04-21 14:15)
DX: K91.30 Postprocedural intestinal obstruction, unspecified as to partial versus complete (principal); F32.A Depression, unspecified; I10 Essential (primary) hypertension; Z87.891 Personal history of nicotine dependence; R50.82 Postprocedural fever; Z79.2 Long term (current) use of antibiotics
CPT/HCPCS: 36415; 71045; 71275; 74018; 74174; 74177; 74250; 80048; 80053; 83605; 83690; 83735; 84100; 85025; 87040; 88307; 93005; 94668; 99252; 99285; 99406; J7030; J7120; Q9967; A4216; G0463; J2405

== ENCOUNTER 2025-02-28 13:42 | Outpatient (RCR) | payer BC, SELFPAY ==
[2025-02-28 14:06] VITALS: BP 153/100; PULSE 100; RESP 18; TEMP 36.1
--- NOTE | 2025-03-01 14:29 | HP.PCM_ITS ---
History of Present Illness Date of Service: 03/01/25 Chief Complaint: Full-thickness wound left great toe History of Wound: Patient has had a full-thickness wound to the great toe for the past 2 months slow to heal. Progress of Wound: Patient is a 39-year-old nondiabetic male presenting to wound care center today for follow-up evaluation and treatment for the full-thickness wound to the plantar aspect of the left great toe. Patient has seen his drawer in plain loom and chief librarian branch or department he was referred him to wound care center for expertise care and treatment to help heal the patient's slow healing chronic wound. Patient states his wound started as a callus which was debrided by his chief librarian branch or department that resulted in a full-thickness wound that has been slow to heal. He has not been taking antibiotics recently but has in the past. Treatment has not been going great per his words. He would like to get this healed as it has been coming and issue for the past few months. He works a very demanding job and has to be on his feet for long peers of time. He denies trauma. Denies constitutional symptoms. No other pedal complaints at this time. [facility] Medical History Anxiety Depression Former smoker Hypertension Non-smoker Umbilical hernia Ventral hernia with obstruction but no gangrene Home Medications Medication Instructions Recorded Last Taken Type lisdexamfetamine 70 mg capsule 70 mg PO DAILY 12/03/15 Unknown History (Vbruce) albuterol sulfate 90 mcg/actuation 2 puff inhalation Q 4H PRN 04/17/23 Unknown History aerosol inhaler shortness of breath cetirizine 10 mg tablet (24Hour 10 mg PO DAILY allergi es 04/17/23 Unknown History Allergy) fluticasone propionate 50 2 spray intranasal DAILY all ergies 04/17/23 Unknown History mcg/actuation nasal spray,suspension hydrochlorothiazide 12.5 mg capsule 12.5 mg PO DAILY H TN 04/17/23 Unknown History lisinopril 10 mg tablet 10 mg PO DAILY 04/17/23 Unkn own History meloxicam 15 mg tablet 15 mg PO DAILY 04/17/23 Unkn own History omeprazole 20 mg capsule,delayed 20 mg PO DAILY Unknown History release sertraline 100 mg tablet 100 mg PO DAILY depression 0 04/17/23 Unknown History docusate sodium 100 mg capsule 100 mg PO BID 14 days # 28 caps 04/20/23 Unknown Rx oxycodone 5 mg tablet 5 mg PO Q6H PRN PRN Pain Sco re 04/20/23 Unknown Rx 4-10 10 days #30 tabs enoxaparin 40 mg/0.4 mL 40 mg (0.4 mL) subcut DAILY 5 days 04/25/23 Unknown Rx subcutaneous syringe #2 mL econazole nitrate 1 % topical cream applic topical BID 02/28/25 Unknown History Allergy/AdvReac Type Severity Reaction Status Date / Time latex Allergy Rash Verified 02/28/25 14:11 Surgical History History of umbilical hernia repair History of umbilical hernia repair S/P small bowel resection Social History Smoking Status: Former smoker Physical Exam Narrative Vascular: DP and PT pulses palpable. CFT brisk. No erythema or proximal streaking. Skin temperature is warm to warm with no focal increase. Neurologic: Light touch and epicritic sensations intact. Protective sensation intact to 10/10 sites with 5.07 [place] monofilament. Dermatologic: Evidence of full-thickness wound to the plantar aspect of the left hallux measuring 0.7 x 0.7 x 0.5 cm. Wound base is fibrogranular nature with periwound hyperkeratotic tissue. Excisional debridement down to including subcutaneous tissue with of the left hallux full-thickness wound done with a number 5 mm dermal curette without incident. Predebridement measurement was 0.5 x 0.5 x 0.2 cm. Postdebridement measurement is 0.7 x 0.7 x 0.5 cm. Musculoskeletal: Mild pain to palpation to full-thickness wound plantar aspect left hallux. No pain with calf pressure. Debridement Note Debridement Note Debridement Free Text: Excisional debridement down to including subcutaneous tissue with of the left hallux full-thickness wound done with a number 5 mm dermal curette without incident. Predebridement measurement was 0.5 x 0.5 x 0.2 cm. Postdebridement measurement is 0.7 x 0.7 x 0.5 cm. Post-Debridement Measurements and Additional Note: Post-Debridement Measurements/Treatment - Nurse 1 - General Ulcer Assessment Start: 02/28/25 14:04 Freq: Status: Active Protocol: GREG.JONATHAN Activity Type Activity Date Activity User E-sign Co-sign Detail Recorded Client Recorded Date Recorded By Document 02/28/25 14:06 [id number] 02/28/25 14:10 02/28/25 14:06 - Today's Visit Information Type of service Initial Visit Arrival Mode Ambulatory Patient Identification Verified (Name & Yes ) Height and Weight Height 6 ft 2 in Vital Signs Temperature (97.8 F-99.1 F) 97.0 F L Temperature Source Temporal Pulse Rate (60-100) 100 Pulse Location Monitor Respiratory Rate (12-18) 18 Respiratory rate source Observation Oxygen Delivery Method Room Air Blood Pressure (90/60-120/80) 153/100 H Blood Pressure Mean 117 Source Monitor Position Semi-Fowlers Blood Pressure Location Left Arm History Since Last Visit- (Skip if this is Patient's initial visit) Left Footwear Regular Shoe Right Footwear Regular Shoe Pain Scale: 0-10 Numeric Is Patient Pain Free? Yes Communication Assessment Preferred language [place] Able to Read Yes Able to Write Yes Communication Tools None Caregiver Communication Skills No Impairment Impairment Right Hearing Abillity Normal Left Hearing Abillity Normal Teaching Assessment Preferences Verbal,Written, Demonstration Barriers to Learning None Readiness To Learn Excellent Willingness to Engage in Self Management High Activies Readiness to Engage in Self Management High Activities Anxiety Level Anxious Cooperation Cooperative Perception Coherent Interest in Health Problem Asks Questions Education Importance Acknowledges Need Does Patient Smoke tobacco or other No substances Smoking Status Former smoker Is Patient Diabetic No Functional Assessment Recent Decline in Ability to Perform Denies Any Declines - Nurse 1 - General Ulcer Measurement Start: 02/28/25 14:04 Freq: Status: Active Protocol: Activity Type Activity Date Activity User E-sign Co-sign Detail Recorded Client Recorded Date Recorded By Document 02/28/25 14:06 [email or web address] [id number] 02/28/25 14:10 02/28/25 14:06 Wound Center Nurse 1 #1 lt hallux -Current Size (cm) - Length 0.6 -Current Size (cm) - Width 0.5 -Current Size (cm) - Depth 0.4 -Total Square Cm 0.30 -Date of Last Picture (Recall this 02/28/25 field) -Exudate Amt Small -Exudate Type Serosanguineous -Wound Margin Thickened -Granulation Amt Large (67-100%) -Granulation Quality [place],Red -Texture (Flaca-wound Skin Appearance) Assessed,Callus -Moisture (Flaca-wound Skin Appearance) Assessed -Color ([place]aca-wound Skin Appearance) Not Assessed -Temperature ([place]aca-wound Skin No Abnormality Appearance) (Pt Warm) -Tenderness on Palpation ([place]aca-wound No Skin Appearance) -Ulcer Cleansing Soap and Water -Foul Odor after Cleansing No -Anesthetic Used 5% Lidocaine Gel WC - Nurse 2 - General Ulcer CM Notes Start: 02/28/25 14:04 Freq: Status: Active Protocol: Activity Type Activity Date Activity User E-sign Co-sign Detail Recorded Client Recorded Date Recorded By Document 02/28/25 14:41 [id number] 02/28/25 14:44 02/28/25 14:41 Wound Center Nurse 2 -Time 14:41 -Correct Patient Yes -Correct Side, Site, Position Yes -Correct Procedure Yes -Procedure Performed Yes -Type of Procedure Debridement -Clinical Debridement Subcutaneous -Tissue Removed Subcutaneous -Post Debridement (cm) - Length 0.7 -Post Debridement (cm) - Width 0.7 -Post Debridement (cm) - Depth 0.5 -Total Square (Post) (cm) 0.49 -Area of Debridement (cm) - Length 0.7 -Area of Debridement (cm) - Width 0.7 -Total Square (Area) (cm) 0.49 -Tunneling No -Undermining/Tunneling No -Circular Undermining No -Wound/Ulcer Outcome Not Healed -Ulcer Cleansing Rinsed/ Irrigated with Saline -Foul Odor after Cleansing No -Bioengineered Tissue No -Bleeding Controlled with Pressure -Treatment Response Procedure Tolerated Well -Offloading No -Debridement - Subq, 1st 20sq cm Yes Pain Scale: 0-10 Numeric Is Patient Pain Free? Yes - Nurse 3 - General Ulcer D/C NN Start: 02/28/25 14:04 Freq: Status: Active Protocol: Activity Type Activity Date Activity User E-sign Co-sign Detail Recorded Client Recorded Date Recorded By Document 02/28/25 14:53 [id number] 02/28/25 14:54 02/28/25 14:53 Wound Care Center Nurse 3 #1 lt hallux -Ulcer Cleansing Not Cleansed -Foul Odor after Cleansing No -Primary Dressing Covered/Secured with Dry Gauze, Secured with Tape -Other Covering betadine Pain Scale: 0-10 Numeric Is Patient Pain Free? Yes WC - Visit Discharge Discharge Condition Stable Ambulatory Status Ambulatory Transportation Private Auto Medication Reconcilliation completed & Yes provided to patient/care provider Lab / Micro Data Micro: Microbiology 02/28/25 16:06 Wound - Toe Gram Stain - Final 02/28/25 16:06 Wound - Toe Wound Culture - Preliminary Gram positive organism Assessment/Plan Assessment/Plan (1) Non-pressure chronic ulcer of other part of left foot with fat layer exposed: CODE(S): L97.522 - Non-pressure chronic ulcer of other part of left foot with fat layer exposed PLAN: Patient was examined and evaluated. All findings were discussed with the patient. All questions were answered to the patient satisfaction. Excisional debridement down to including subcutaneous tissue with of the left hallux full-thickness wound done with a number 5 mm dermal curette without inci dent. Predebridement measurement was 0.5 x 0.5 x 0.2 cm. Postdebridement measurement is 0.7 x 0.7 x 0.5 cm. There is white plan to pad a dry. Culture was taken. Patient will be given an order for x-rays to rule out any underlying bone infection or concern for deep tissue abscess. The area was dressed with Betadine soaked gauze dry sterile dressing and light compression wrap. Patient continue daily dressing changes. At this time there is no concern for surgical intervention but will be evaluating for any suspicious on plain film x-rays for any bone infection involvement or soft tissue involvement that would require surgical intervention. At this time we will continue patient wound care Patient will follow-up with Dr. Sosa in 1 week for further evaluation. (2) Pain in left toe(s): CODE(S): M79.675 - Pain in left toe(s)
== END 2025-03-01 23:59 | disposition home or self-care (01) ==
LOC: WC 13:42
PROVIDERS: PCP Nurse Practitioner Family; Referring Provider Dermatology; Visit Provider Podiatrist Foot & Ankle Surgery
DX: L97.522 Non-pressure chronic ulcer of other part of left foot with fat layer exposed (principal); Z87.891 Personal history of nicotine dependence; I10 Essential (primary) hypertension; Z79.01 Long term (current) use of anticoagulants; M79.675 Pain in left toe(s); F41.9 Anxiety disorder, unspecified; F32.A Depression, unspecified
CPT/HCPCS: 11042; 87070; 87075; 87077; 87186; 87205; 99214; G0463

== ENCOUNTER → 2025-03-06 | Outpatient (CLI) | payer BC, SELFPAY ==
--- NOTE | 2025-03-06 10:09 | RAD_ITS ---
PROCEDURE: FOOT MIN 3 VIEWS 03/06/2025 REASON FOR EXAM: HALLUX ULCER TECHNIQUE: FOOT MIN 3 VIEWS COMPARISON: No FINDINGS: 1st digit plantar soft tissue ulceration. No soft tissue gas otherwise noted. No evidence of bone infection. 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 RAD/Foot min 3 Views IMPRESSION: 1st digit plantar soft tissue ulceration. [facility]
== END | disposition home or self-care (01) ==
LOC: RAD 10:06
PROVIDERS: PCP Nurse Practitioner Family; Referring Provider Podiatrist Foot & Ankle Surgery; Visit Provider Podiatrist Foot & Ankle Surgery
DX: L97.421 Non-pressure chronic ulcer of left heel and midfoot limited to breakdown of skin (principal)
CPT/HCPCS: 73630

== ENCOUNTER 2025-03-28 14:00 | Outpatient (RCR) | payer BC, SELFPAY ==
[2025-03-07 13:24] VITALS: BP 158/103; PULSE 89; RESP 15; TEMP 36.1
--- NOTE | 2025-03-07 13:59 | PN.PCM_ITS ---
History of Present Illness Date of Service: 03/07/25 Chief Complaint: Full-thickness wound left great toe History of Wound: Patient has had a full-thickness wound to the great toe for the past 2 months slow to heal. Progress of Wound: Full-thickness wound left great toe Subjective Subjective Patient is a 39-year-old nondiabetic male presented wound care center today follow-up evaluation of full-thickness wound to the plantar aspect of the left hallux. Patient has been compliant with dressing changes. He admits to some maceration to the periwound. He is changing the dressing as discussed. Patient is not diabetic. He denies any pain. He did get his x-rays completed the other day and is here to review them as well as the culture results. He denies trauma. Denies constitutional symptoms. No other pedal complaints at this time. Objective Data Objective Data Vital Signs: Vital Signs Temp Pulse Resp BP 97.0 F L 89 15 158/103 H 03/07/25 13:24 03/07/25 13:24 03/07/25 13:24 03/07/25 13:24 Physical Exam Narrative Vascular: DP and PT pulses palpable to the left lower extremity. Skin temperature is warm to warm from proximal ankles to distal digit bilateral. No focal increase is noted. Nonpitting edema appreciated to the left lower extremity. Neurological: Light touch intact. Patient does respond to painful stimuli. Dermatological: Full-thickness wound to the subleft hallux at the level of the IPJ measuring 0.5 x 0.6 x 0.5 cm. Positive probe to muscle with negative probe to bone. Periwound maceration is appreciated. No malodor is noted. Excisional debridement down to including subcutaneous tissue, fascia and muscle of the full-thickness wound to the subleft hallux IPJ done with a number 5 mm dermal curette without incident. Predebridement measurement was 0.3 x 0.3 x 0.2 cm. Postdebridement measurement 0.5 x 0.6 x 0.5 cm. Muscle skeletal: Mild pain to palpation to full-thickness wound. No pain with calf pressure. Debridement Note Debridement Note Debridement Free Text: Excisional debridement down to including subcutaneous tissue, fascia and muscle of the full-thickness wound to the subleft hallux IPJ done with a number 5 mm dermal curette without incident. Predebridement measurement was 0.3 x 0.3 x 0.2 cm. Postdebridement measurement 0.5 x 0.6 x 0.5 cm. Post-Debridement Measurements and Additional Note: Post-Debridement Measurements/Treatment - Nurse 1 - General Ulcer Assessment Start: 03/07/25 13:24 Freq: Status: Active Protocol: GREG.JONATHAN Activity Type Activity Date Activity User E-sign Co-sign Detail Recorded Client Recorded Date Recorded By Document 03/07/25 13:24 ML [id number] 03/07/25 13:32 ML 03/07/25 13:24 - Today's Visit Information Type of service Follow-up Visit (Physician/MANAGER BIOSTATISTICS ) Arrival Mode Ambulatory Transfer Assistance None Patient Identification Verified (Name & Yes ) Patient Requires Transmission-Based No Precautions Vital Signs Temperature (97.8 F-99.1 F) 97.0 F L Temperature Source Temporal Pulse Rate (60-100) 89 Pulse Location Monitor Respiratory Rate (12-18) 15 Respiratory rate source Observation Blood Pressure (90/60-120/80) 158/103 H Blood Pressure Mean (mm Hg) 121 Source Monitor Position Sitting Blood Pressure Location Left Arm History Since Last Visit- (Skip if this is Patient's initial visit) Have you changed medications since your No last visit? Any new allergies or adverse reactions No Had a fall/change in ADL's that may No increase risk of falls Signs or symptoms of abuse and/or No neglect since last visit Has dressing in place as prescribed Yes Has compression in place as prescribed N/A Has offloadiing in place as prescribed N/A Experienced any changes in pain level or No management Pain Scale: 0-10 Numeric Is Patient Pain Free? Yes - Nurse 1 - General Ulcer Measurement Start: 03/07/25 13:24 Freq: Status: Active Protocol: Activity Type Activity Date Activity User E-sign Co-sign Detail Recorded Client Recorded Date Recorded By Document 03/07/25 13:24 ML [id number] 03/07/25 13:32 ML 03/07/25 13:24 Wound Center Nurse 1 #1 lt hallux -Current Size (cm) - Length 0.5 -Current Size (cm) - Width 0.5 -Current Size (cm) - Depth 0.3 -Total Square Cm 0.25 -Exudate Amt Medium -Exudate Type Serosanguineous -Wound Margin Distinct, Outline Attached -Granulation Amt Small (1-33%) -Necrosis Amt Medium (34-66%) -Necrotic Tissue Type Adherent Slough -Texture (Flaca-wound Skin Appearance) Assessed -Moisture (Flaca-wound Skin Appearance) Assessed -Color (Flaca-wound Skin Appearance) Assessed -Temperature (Flaca-wound Skin No Abnormality Appearance) (Pt Warm) -Tenderness on Palpation (Flaca-wound No Skin Appearance) -Ulcer Cleansing Rinsed/ Irrigated with Saline -Anesthetic Used 5% Lidocaine Gel WC - Nurse 2 - General Ulcer CM Notes Start: 03/07/25 13:24 Freq: Status: Active Protocol: Activity Type Activity Date Activity User E-sign Co-sign Detail Recorded Client Recorded Date Recorded By Document 03/07/25 13:43 LAY [id number] 03/07/25 13:47 LAY 03/07/25 13:43 Wound Center Nurse 2 -Time 13:44 -Correct Patient Yes -Correct Side, Site, Position Yes -Correct Procedure Yes -Procedure Performed Yes -Type of Procedure Debridement -Clinical Debridement Subcutaneous -Tissue Removed Subcutaneous -Post Debridement (cm) - Length 0.5 -Post Debridement (cm) - Width 0.6 -Post Debridement (cm) - Depth 0.5 -Total Square (Post) (cm) 0.30 -Area of Debridement (cm) - Length 0.5 -Area of Debridement (cm) - Width 0.6 -Total Square (Area) (cm) 0.30 -Tunneling No -Undermining/Tunneling No -Circular Undermining No -Wound/Ulcer Outcome Not Healed -Ulcer Cleansing Rinsed/ Irrigated with Saline -Foul Odor after Cleansing No -Bioengineered Tissue No -Bleeding Controlled with Pressure -Treatment Response Procedure Tolerated Well -Offloading No -Debridement - Subq, 1st 20sq cm Yes Pain Scale: 0-10 Numeric Is Patient Pain Free? Yes - Nurse 3 - General Ulcer D/C NN Start: 03/07/25 13:24 Freq: Status: Active Protocol: Activity Type Activity Date Activity User E-sign Co-sign Detail Recorded Client Recorded Date Recorded By Document 03/07/25 13:47 LAY [id number] 03/07/25 13:47 JF 03/07/25 13:47 Wound Care Center Nurse 3 #1 lt hallux -Ulcer Cleansing Rinsed/ Irrigated with Saline -Foul Odor after Cleansing No -Other Dressing betadine -Primary Dressing Covered/Secured with Dry Gauze, Secured with Tape Pain Scale: 0-10 Numeric Is Patient Pain Free? Yes WC - Visit Discharge Discharge Condition Stable Ambulatory Status Ambulatory Transportation Private Auto Medication Reconcilliation completed & Yes provided to patient/care provider Clinical Summary of Care Provided Yes Assessment/Plan Assessment/Plan (1) Non-pressure chronic ulcer of other part of left foot with necrosis of muscle: CODE(S): L97.523 - Non-pressure chronic ulcer of other part of left foot with necrosis of muscle PLAN: Patient was examined and evaluated. All findings were discussed with the patient. All questions were answered to the patient satisfaction. Excisional debridement down to including subcutaneous tissue, fascia and muscle of the full-thickness wound to the subleft hallux IPJ done with a number 5 mm dermal curette without incident. Predebridement measurement was 0.3 x 0.3 x 0.2 cm. Postdebridement measurement 0.5 x 0.6 x 0.5 cm. The area was flushed and white plain and patted dry. Betadine paint was applied to the wound as well as the periwound covered with dry sterile dressing and light compression wrap. Patient perform daily dressing changes. Patient shows evidence of bacterial growth, and group B strep. The patient be p laced on amoxicillin 500 mg twice daily until gone. Patient has no drug allergies at this time. Educated patient the need to watch the draining of the full-thickness wound and he will need to change the bandage 2-3 times per day which he is understanding of. I educated the patient if we still have delayed healing he will need to move forward with surgical intervention with IPJ arthroplasty of the left hallux to be done at [facility]. Patient will follow-up with Dr. Sosa in 1 month
[2025-03-14 14:01] VITALS: BP 155/100; PULSE 95; RESP 18; TEMP 36.4
--- NOTE | 2025-03-14 14:47 | PN.PCM_ITS ---
History of Present Illness Date of Service: 03/14/25 Chief Complaint: Full-thickness wound left great toe History of Wound: Patient has had a full-thickness wound to the great toe for the past 2 months slow to heal. Progress of Wound: Full-thickness wound left great toe Subjective Subjective Patient is a 39-year-old nondiabetic male presenting to wound care center today follow-up evaluation of full-thickness wound to the plantar aspect of the IPJ of the left hallux. Patient has been compliant with dressing changes and oral antibiotics. He admits improvement to the redness and pain. He is grateful for his care. He denies trauma. Denies constitutional symptoms. No other pedal complaints at this time. Objective Data Objective Data Vital Signs: Vital Signs Temp Pulse Resp BP O2 Del Method 97.6 F L 95 18 155/100 H Room Air 03/14/25 14:01 03/14/25 14:01 03/14/25 14:01 03/14/25 14:01 03/14/25 14:01 Oxygen Delivery Method Room Air Physical Exam Narrative Vascular: DP and PT pulses palpable to the left lower extremity. Skin temperature is warm to warm from proximal ankles to distal digit bilateral. No focal increase is noted. Nonpitting edema appreciated to the left lower extremity. Neurological: Light touch intact. Patient does respond to painful stimuli. Dermatological: Full-thickness wound to the subleft hallux at the level of the IPJ measuring 0.6 x 0.6 x 0.5 cm. Negative probe to bone. Excisional debridement down to including subcutaneous tissue, fascia and muscle of the full-thickness wound to the subleft hallux IPJ done with a number 5 mm dermal curette without incident. Predebridement measurement was 0.4 x 0.4 x 0.2 cm. Postdebridement measurement 0.6 x 0.6 x 0.5 cm. Muscle skeletal: Mild pain to palpation to full-thickness wound. No pain with calf pressure. Debridement Note Debridement Note Debridement Free Text: Excisional debridement down to including subcutaneous tissue, fascia and muscle of the full-thickness wound to the subleft hallux IPJ done with a number 5 mm dermal curette without incident. Predebridement measurement was 0.4 x 0.4 x 0.2 cm. Postdebridement measurement 0.6 x 0.6 x 0.5 cm. Post-Debridement Measurements and Additional Note: Post-Debridement Measurements/Treatment - Nurse 1 - General Ulcer Assessment Start: 03/07/25 13:24 Freq: Status: Active Protocol: RACHELE Activity Type Activity Date Activity User E-sign Co-sign Detail Recorded Client Recorded Date Recorded By Document 03/07/25 13:24 ML [id number] 03/07/25 13:32 ML Document 03/14/25 14:01 GM [id number] 03/14/25 14:03 03/07/25 03/14/25 13:24 14:01 WC - Today's Visit Information Type of service Follow-up Visit Follow-up Visit (Physician/DRIED YEAST SUPERVISOR (Physician/DRIED YEAST SUPERVISOR ) ) Arrival Mode Ambulatory Ambulatory Transfer Assistance None Patient Identification Verified (Name & Yes Yes ) Patient Requires Transmission-Based No No Precautions Vital Signs Temperature (97.8 F-99.1 F) 97.0 F L 97.6 F L Temperature Source Temporal Temporal Pulse Rate (60-100) 89 95 Pulse Location Monitor Monitor Respiratory Rate (12-18) 15 18 Respiratory rate source Observation Observation Oxygen Delivery Method Room Air Blood Pressure (90/60-120/80) 158/103 H 155/100 H Blood Pressure Mean (mm Hg) 121 118 Source Monitor Monitor Position Sitting Sitting Blood Pressure Location Left Arm Left Arm History Since Last Visit- (Skip if this is Patient's initial visit) Have you changed medications since your No No last visit? Any new allergies or adverse reactions No No Had a fall/change in ADL's that may No No increase risk of falls Signs or symptoms of abuse and/or No No neglect since last visit Have you been in the hospital since your No last visit? Has dressing in place as prescribed Yes Yes Has compression in place as prescribed N/A N/A Has offloadiing in place as prescribed N/A N/A Experienced any changes in pain level or No No management Left Footwear Regular Shoe Pain Scale: 0-10 Numeric Is Patient Pain Free? Yes Yes - Nurse 1 - General Ulcer Measurement Start: 03/07/25 13:24 Freq: Status: Active Protocol: Activity Type Activity Date Activity User E-sign Co-sign Detail Recorded Client Recorded Date Recorded By Document 03/07/25 13:24 ML [id number] 03/07/25 13:32 ML Document 03/14/25 14:01 [id number] 03/14/25 14:03 03/07/25 03/14/25 13:24 14:01 Wound Center Nurse 1 #1 lt hallux -Current Size (cm) - Length 0.5 0.4 -Current Size (cm) - Width 0.5 0.4 -Current Size (cm) - Depth 0.3 0.2 -Total Square Cm 0.25 0.16 -Date of Last Picture (Recall this 03/14/25 field) -Photo Taken Yes -Epithelialization None Present -Tunneling No -Undermining/Tunneling No -Circular Undermining No -Exudate Amt Medium Small -Exudate Type Serosanguineous Serosanguineous -Wound Margin Distinct, Distinct, Outline Outline Attached Attached -Granulation Amt Small (1-33%) Small (1-33%) -Granulation Quality [place] -Slough/Fibrin No -Necrosis Amt Medium (34-66%) None Present (0 %) -Necrotic Tissue Type Adherent Slough -Texture (Flaca-wound Skin Appearance) Assessed Assessed,Callus -Moisture (Flaca-wound Skin Appearance) Assessed Assessed -Color (Flaca-wound Skin Appearance) Assessed Assessed -Temperature (Flaca-wound Skin No Abnormality No Abnormality Appearance) (Pt Warm) (Pt Warm) -Tenderness on Palpation (Flaca-wound No No Skin Appearance) -Ulcer Cleansing Rinsed/ Rinsed/ Irrigated with Irrigated with Saline Saline -Foul Odor after Cleansing No -Anesthetic Used 5% Lidocaine 5% Lidocaine Gel Gel WC - Nurse 2 - General Ulcer CM Notes Start: 03/07/25 13:24 Freq: Status: Active Protocol: Activity Type Activity Date Activity User E-sign Co-sign Detail Recorded Client Recorded Date Recorded By Document 03/07/25 13:43 [id number] 03/07/25 13:47 JF Document 03/14/25 14:10 JF [id number] 03/14/25 14:14 JF Edit Result 03/14/25 14:10 JF (1) [id number] 03/14/25 14:16 JF (1) #1 lt hallux - Clinical Debridement Subcutaneous => Muscle / Fascia - Tissue Removed Subcutaneous => Muscle - Debridement - Subq, 1st 20sq cm Yes => No - Debridement - Muscle / Fascia, 1st => Yes 20sq cm 03/07/25 03/14/25 13:43 14:10 Wound Center Nurse 2 #1 lt hallux -Time 13:44 14:11 -Correct Patient Yes Yes -Correct Side, Site, Position Yes Yes -Correct Procedure Yes Yes -Procedure Performed Yes Yes -Type of Procedure Debridement Debridement -Clinical Debridement Subcutaneous Muscle / Fascia -Tissue Removed Subcutaneous Muscle -Post Debridement (cm) - Length 0.5 0.6 -Post Debridement (cm) - Width 0.6 0.6 -Post Debridement (cm) - Depth 0.5 0.5 -Total Square (Post) (cm) 0.30 0.36 -Area of Debridement (cm) - Length 0.5 0.6 -Area of Debridement (cm) - Width 0.6 0.6 -Total Square (Area) (cm) 0.30 0.36 -Tunneling No No -Undermining/Tunneling No No -Circular Undermining No No -Wound/Ulcer Outcome Not Healed Not Healed -Ulcer Cleansing Rinsed/ Rinsed/ Irrigated with Irrigated with Saline Saline -Foul Odor after Cleansing No No -Bioengineered Tissue No No -Bleeding Controlled with Pressure Pressure -Treatment Response Procedure Procedure Tolerated Well Tolerated Well -Offloading No No -Debridement - Subq, 1st 20sq cm Yes No -Debridement - Muscle / Fascia, 1st Yes 20sq cm Pain Scale: 0-10 Numeric Is Patient Pain Free? Yes Yes - Nurse 3 - General Ulcer D/C NN Start: 03/07/25 13:24 Freq: Status: Active Protocol: Activity Type Activity Date Activity User E-sign Co-sign Detail Recorded Client Recorded Date Recorded By Document 03/07/25 13:47 [id number] 03/07/25 13:47 Document 03/14/25 14:33 [id number] 03/14/25 14:34 03/07/25 03/14/25 13:47 14:33 Wound Care Center Nurse 3 #1 lt hallux -Ulcer Cleansing Rinsed/ Not Cleansed Irrigated with Saline -Foul Odor after Cleansing No No -Primary Dressing Applied Promogran Olesya Matter -Other Dressing betadine -Primary Dressing Covered/Secured with Dry Gauze, Dry Gauze & Secured with Roll Gauze, Tape Secured with Tape -Promogran Olesya Matter 1 Pain Scale: 0-10 Numeric Is Patient Pain Free? Yes Yes - Visit Discharge Discharge Condition Stable Stable Ambulatory Status Ambulatory Ambulatory Transportation Private Auto Private Auto Medication Reconcilliation completed & Yes provided to patient/care provider Clinical Summary of Care Provided Yes Assessment/Plan Assessment/Plan (1) Non-pressure chronic ulcer of other part of left foot with necrosis of muscle: CODE(S): L97.523 - Non-pressure chronic ulcer of other part of left foot with necrosis of muscle PLAN: Patient was examined and evaluated. All findings were discussed with the patient. All questions were answered to the patient satisfaction. Excisional debridement down to including subcutaneous tissue, fascia and muscle of the full-thickness wound to the subleft hallux IPJ done with a number 5 mm dermal curette without incident. Predebridement measurement was 0.4 x 0.4 x 0.2 cm. Postdebridement measurement 0.6 x 0.6 x 0.5 cm. The left great toe was white cleaned and patted dry. Betadine paint dry sterile dressing compression bra were donned. Patient will perform daily dressing changes. Will continue antibiotics until gone. Educated the patient on further conservative versus surgical treatment. Will recommend conservative treatment with Connolly's extension [id number] orthotic or custom orthotics. If the patient fails conservative treatment we will need to move forward with IPJ arthroplasty which she is understanding of. Patient will follow-up with Dr. Sosa in 1 week
--- NOTE | 2025-03-15 09:55 | WC ---
PHOTO-LEFT HALLUX 03/14/25
[2025-03-21 14:37] VITALS: BP 167/98; PULSE 94; RESP 18; TEMP 36.2
--- NOTE | 2025-03-21 14:53 | PCM.WC.PN ---
History of Present Illness Date of Service: 03/21/25 Chief Complaint: Full-thickness wound left great toe History of Wound: Patient has had a full-thickness wound to the great toe for the past 2 months slow to heal. Progress of Wound: Full-thickness wound left great toe Subjective Subjective Patient is a 59-year-old male presenting to wound care center today follow-up evaluation of full-thickness wound to left great toe. Patient has been doing dressing changes with Olesya and sterile Band-Aid. He admits the wound is stable but slow to improve. He admits to no pain or drainage or redness to the area. 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 He denies trauma. Denies constitutional symptoms. No other pedal complaints at this time. Objective Data Objective Data Vital Signs: Vital Signs Temp Pulse Resp BP O2 Del Method 97.1 F L 94 18 167/98 H Room Air 03/21/25 14:37 03/21/25 14:37 03/21/25 14:37 03/21/25 14:37 03/21/25 14:37 Oxygen Delivery Method Room Air Physical Exam Narrative Vascular: DP and PT pulses palpable to the left lower extremity. Skin temperature is warm to warm from proximal ankles to distal digit bilateral. No focal increase is noted. Nonpitting edema appreciated to the left lower extremity. No erythema. Neurological: Light touch intact. Patient does respond to painful stimuli. Dermatological: Full-thickness wound to the subleft hallux at the level of the IPJ measuring 0.9 x 0.7 x 0.5 cm. Negative probe to bone. Excisional debridement down to including subcutaneous tissue, fascia and muscle of the full-thickness wound to the subleft hallux IPJ done with a number 5 mm dermal curette without incident. Predebridement measurement was 0.7 x 0.6 x 0.3 cm. Postdebridement measurement 0.9 x 0.7 x 0.5 cm. Muscle skeletal: Mild pain to palpation to full-thickness wound. No pain with calf pressure. Debridement Note Debridement Note Debridement Free Text: Excisional debridement down to including subcutaneous tissue, fascia and muscle of the full-thickness wound to the subleft hallux IPJ done with a number 5 mm dermal curette without incident. Predebridement measurement was 0.7 x 0.6 x 0.3 cm. Postdebridement measurement 0.9 x 0.7 x 0.5 cm. Post-Debridement Measurements and Additional Note: Post-Debridement Measurements/Treatment WC - Nurse 1 - General Ulcer Assessment Start: 03/07/25 13:24 Freq: Status: Active Protocol: RACHELE Activity Type Activity Date Activity User E-sign Co-sign Detail Recorded Client Recorded Date Recorded By Document 03/07/25 13:24 ML [id number] 03/07/25 13:32 ML Document 03/14/25 14:01 GM [id number] 03/14/25 14:03 GM Document 03/21/25 14:37 KW [id number] 03/21/25 14:42 KW 03/07/25 03/14/25 03/21/25 13:24 14:01 14:37 WC - Today's Visit Information Type of service Follow-up Visit Follow-up Visit Follow-up Visit (Physician/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 (Physician/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 (Physician/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 ) ) ) Arrival Mode Ambulatory Ambulatory Ambulatory Transfer Assistance None Patient Identification Verified (Name & Yes Yes Yes ) Patient Requires Transmission-Based No No Precautions Vital Signs Temperature (97.8 F-99.1 F) 97.0 F L 97.6 F L 97.1 F L Temperature Source Temporal Temporal Temporal Pulse Rate (60-100) 89 95 94 Pulse Location Monitor Monitor Monitor Respiratory Rate (12-18) 15 18 18 Respiratory rate source Observation Observation Observation Oxygen Delivery Method Room Air Room Air Blood Pressure (90/60-120/80) 158/103 H 155/100 H 167/98 H Blood Pressure Mean (mm Hg) 121 118 121 Source Monitor Monitor Monitor Position Sitting Sitting Semi-Fowlers Blood Pressure Location Left Arm Left Arm Left Forearm History Since Last Visit- (Skip if this is Patient's initial visit) Have you changed medications since your No No No last visit? Any new allergies or adverse reactions No No No Had a fall/change in ADL's that may No No No increase risk of falls Signs or symptoms of abuse and/or No No No neglect since last visit Have you been in the hospital since your No No last visit? Has dressing in place as prescribed Yes Yes Yes Has compression in place as prescribed N/A N/A N/A Has offloadiing in place as prescribed N/A N/A N/A Experienced any changes in pain level or No No No management Left Footwear Regular Shoe Regular Shoe Right Footwear Regular Shoe Pain Scale: 0-10 Numeric Is Patient Pain Free? Yes Yes Yes WC - Nurse 1 - General Ulcer Measurement Start: 03/07/25 13:24 Freq: Status: Active Protocol: Activity Type Activity Date Activity User E-sign Co-sign Detail Recorded Client Recorded Date Recorded By Document 03/07/25 13:24 ML [id number] 03/07/25 13:32 ML Document 03/14/25 14:01 GM [id number] 03/14/25 14:03 GM Document 03/21/25 14:37 KW [id number] 03/21/25 14:42 KW 03/07/25 03/14/25 03/21/25 13:24 14:01 14:37 Wound Center Nurse 1 #1 lt hallux -Current Size (cm) - Length 0.5 0.4 0.7 -Current Size (cm) - Width 0.5 0.4 0.5 -Current Size (cm) - Depth 0.3 0.2 0.4 -Total Square Cm 0.25 0.16 0.35 -Date of Last Picture (Recall this 03/14/25 03/21/25 field) -Photo Taken Yes -Epithelialization None Present -Tunneling No -Undermining/Tunneling No -Circular Undermining No -Exudate Amt Medium Small Medium -Exudate Type Serosanguineous Serosanguineous Serosanguineous -Wound Margin Distinct, Distinct, Thickened Outline Outline Attached Attached -Granulation Amt Small (1-33%) Small (1-33%) Large (67-100%) -Granulation Quality [place] -Slough/Fibrin No -Necrosis Amt Medium (34-66%) None Present (0 %) -Necrotic Tissue Type Adherent Slough -Texture (Flaca-wound Skin Appearance) Assessed Assessed,Callus Assessed,Callus -Moisture ([place]aca-wound Skin Appearance) Assessed Assessed Assessed -Color ([place]-wound Skin Appearance) Assessed Assessed Assessed -Temperature ([place]-wound Skin No Abnormality No Abnormality No Abnormality Appearance) (Pt Warm) (Pt Warm) (Pt Warm) -Tenderness on Palpation ([place]-wound No No No Skin Appearance) -Ulcer Cleansing Rinsed/ Rinsed/ Rinsed/ Irrigated with Irrigated with Irrigated with Saline Saline Saline -Foul Odor after Cleansing No No -Anesthetic Used 5% Lidocaine 5% Lidocaine 5% Lidocaine Gel Gel Gel WC - Nurse 2 - General Ulcer CM Notes Start: 03/07/25 13:24 Freq: Status: Active Protocol: Activity Type Activity Date Activity User E-sign Co-sign Detail Recorded Client Recorded Date Recorded By Document 03/07/25 13:43 JF [id number] 03/07/25 13:47 JF Document 03/14/25 14:10 JF [id number] 03/14/25 14:14 JF Edit Result 03/14/25 14:10 JF (1) [id number] 03/14/25 14:16 JF Document 03/21/25 14:47 DS [id number] 03/21/25 14:50 DS Edit Result 03/21/25 14:47 DS (2) [id number] 03/21/25 14:52 DS (1) #1 lt hallux - Clinical Debridement Subcutaneous => Muscle / Fascia - Tissue Removed Subcutaneous => Muscle - Debridement - Subq, 1st 20sq cm Yes => No - Debridement - Muscle / Fascia, 1st => Yes 20sq cm (2) #1 lt hallux - Clinical Debridement Subcutaneous => Muscle / Fascia - Tissue Removed Subcutaneous => Muscle - Debridement - Subq, 1st 20sq cm Yes => - Debridement - Muscle / Fascia, 1st => Yes 20sq cm 03/07/25 03/14/25 03/21/25 13:43 14:10 14:47 Wound Center Nurse 2 #1 lt hallux -Time 13:44 14:11 14:47 -Correct Patient Yes Yes Yes -Correct Side, Site, Position Yes Yes Yes -Correct Procedure Yes Yes Yes -Procedure Performed Yes Yes Yes -Type of Procedure Debridement Debridement Debridement -Clinical Debridement Subcutaneous Muscle / Fascia Muscle / Fascia -Tissue Removed Subcutaneous Muscle Muscle -Post Debridement (cm) - Length 0.5 0.6 0.9 -Post Debridement (cm) - Width 0.6 0.6 0.7 -Post Debridement (cm) - Depth 0.5 0.5 0.5 -Total Square (Post) (cm) 0.30 0.36 0.63 -Area of Debridement (cm) - Length 0.5 0.6 0.9 -Area of Debridement (cm) - Width 0.6 0.6 0.7 -Total Square (Area) (cm) 0.30 0.36 0.63 -Tunneling No No No -Undermining/Tunneling No No No -Circular Undermining No No No -Wound/Ulcer Outcome Not Healed Not Healed Not Healed -Ulcer Cleansing Rinsed/ Rinsed/ Rinsed/ Irrigated with Irrigated with Irrigated with Saline Saline Saline -Foul Odor after Cleansing No No No -Bioengineered Tissue No No No -Bleeding Controlled with Pressure Pressure Pressure -Treatment Response Procedure Procedure Procedure Tolerated Well Tolerated Well Tolerated Well -Offloading No No -Debridement - Subq, 1st 20sq cm Yes No -Debridement - Muscle / Fascia, 1st Yes Yes 20sq cm Pain Scale: 0-10 Numeric Is Patient Pain Free? Yes Yes Yes - Nurse 3 - General Ulcer D/C NN Start: 03/07/25 13:24 Freq: Status: Active Protocol: Activity Type Activity Date Activity User E-sign Co-sign Detail Recorded Client Recorded Date Recorded By Document 03/07/25 13:47 [id number] 03/07/25 13:47 Document 03/14/25 14:33 [id number] 03/14/25 14:34 03/07/25 03/14/25 13:47 14:33 Wound Care Center Nurse 3 #1 lt hallux -Ulcer Cleansing Rinsed/ Not Cleansed Irrigated with Saline -Foul Odor after Cleansing No No -Primary Dressing Applied Promogran Olesya Matter -Other Dressing betadine -Primary Dressing Covered/Secured with Dry Gauze, Dry Gauze & Secured with Roll Gauze, Tape Secured with Tape -Promogran Olesya Matter 1 Pain Scale: 0-10 Numeric Is Patient Pain Free? Yes Yes - Visit Discharge Discharge Condition Stable Stable Ambulatory Status Ambulatory Ambulatory Transportation Private Auto Private Auto Medication Reconcilliation completed & Yes provided to patient/care provider Clinical Summary of Care Provided Yes Assessment/Plan Assessment/Plan (1) Non-pressure chronic ulcer of other part of left foot with necrosis of muscle: CODE(S): L97.523 - Non-pressure chronic ulcer of other part of left foot with necrosis of muscle PLAN: Patient was examined and evaluated. All findings were discussed with the patient. All questions were answered to the patient satisfaction. Excisional debridement down to including subcutaneous tissue, fascia and muscle of the full-thickness wound to the subleft hallux IPJ done with a number 5 mm dermal curette without incident. Predebridement measurement was 0.7 x 0.6 x 0.3 cm. Postdebridement measurement 0.9 x 0.7 x 0.5 cm. The left great toe was white clean and patted dry. Betadine paint and dry sterile dressing was applied applied followed by compression wrap. Patient will continue daily dressing changes. Educate the patient not to get the wound wet. A long discussion with the patient regarding the chronicity of the wound and educated the patient that we need to move forward with IPJ arthroplasty with surgical wound skin graft site prep with application skin graft substitute versus possibly delayed primary closure to the left great toe. He was understanding of this and agreeable to move forward with surgery. Patient will be booked and most likely have surgery in April. Patient was educated to plan for 3 weeks off of work which she was understanding of. All risk and benefits discussed with patient great detail. Patient will follow-up with Dr. Sosa in 1 week (2) Osteoarthritis of left foot: CODE(S): M19.072 - Primary osteoarthritis, left ankle and foot
--- NOTE | 2025-03-22 08:35 | WC ---
PHOTO-LEFT HALLUX 03/21/25
[2025-03-28 14:02] VITALS: BP 162/106; PULSE 102; RESP 18; TEMP 36.3
--- NOTE | 2025-03-28 15:44 | PCM.WC.PN ---
History of Present Illness Date of Service: 03/28/25 Chief Complaint: Full-thickness wound left great toe History of Wound: Patient has had a full-thickness wound to the great toe for the past 2-3 months slow to heal. Progress of Wound: Full-thickness wound left great toe Subjective Subjective Patient is a 39-year-old male presents to clinic today for follow-up evaluation of left foot/great toe full-thickness wound. Patient has been doing dressing changes as discussed. He admits the wound is still present. He admits that the drainage has improved and is also right move forward with elective procedure as discussed previously. He is here today for further evaluation of the full-thickness wound as well as a signed surgical paperwork. He he understands all risk and benefits. Denies trauma. Denies constitutional symptoms. No other pedal complaints at this time. Objective Data Objective Data Vital Signs: Vital Signs Temp Pulse Resp BP O2 Del Method 97.3 F L 102 H 18 162/106 H Room Air 03/28/25 14:02 03/28/25 14:02 03/28/25 14:02 03/28/25 14:02 03/28/25 14:02 Oxygen Delivery Method Room Air Physical Exam Narrative Vascular: DP and PT pulses palpable to the left lower extremity. Skin temperature is warm to warm from proximal ankles to distal digit bilateral. No focal increase is noted. Nonpitting edema appreciated to the left lower extremity. No erythema. Neurological: Light touch intact. Patient does respond to painful stimuli. Dermatological: Full-thickness wound to the subleft hallux at the level of the IPJ measuring 0.7 x 0.7 x 0.4 cm. Negative probe to bone. Excisional debridement down to including subcutaneous tissue, fascia and muscle of the full-thickness wound to the subleft hallux IPJ done with a number 5 mm dermal curette without incident. Predebridement measurement was 0.5 x 0.6 x 0.3 cm. Postdebridement measurement 0.7 x 0.7 x 0.4 cm. Muscle skeletal: Mild pain to palpation to full-thickness wound. No pain with calf pressure. Debridement Note Debridement Note Debridement Free Text: Excisional debridement down to including subcutaneous tissue, fascia and muscle of the full-thickness wound to the subleft hallux IPJ done with a number 5 mm dermal curette without incident. Predebridement measurement was 0.5 x 0.6 x 0.3 cm. Postdebridement measurement 0.7 x 0.7 x 0.4 cm. Post-Debridement Measurements and Additional Note: Post-Debridement Measurements/Treatment WC - Nurse 1 - General Ulcer Assessment Start: 03/07/25 13:24 Freq: Status: Active Protocol: WC.[place] Activity Type Activity Date Activity User E-sign Co-sign Detail Recorded Client Recorded Date Recorded By Document 03/07/25 13:24 ML [id number] 03/07/25 13:32 ML Document 03/14/25 14:01 GM [id number] 03/14/25 14:03 GM Document 03/21/25 14:37 KW [id number] 03/21/25 14:42 KW Document 03/28/25 14:02 GM [id number] 03/28/25 14:07 GM 03/07/25 03/14/25 03/21/25 13:24 14:01 14:37 WC - Today's Visit Information Type of service Follow-up Visit Follow-up Visit Follow-up Visit (Physician/HEALTH CARE SOCIAL WORKER (Physician/HEALTH CARE SOCIAL WORKER (Physician/HEALTH CARE SOCIAL WORKER ) ) ) Arrival Mode Ambulatory Ambulatory Ambulatory Transfer Assistance None Patient Identification Verified (Name & Yes Yes Yes ) Patient Requires Transmission-Based No No Precautions Vital Signs Temperature (97.8 F-99.1 F) 97.0 F L 97.6 F L 97.1 F L Temperature Source Temporal Temporal Temporal Pulse Rate (60-100) 89 95 94 Pulse Location Monitor Monitor Monitor Respiratory Rate (12-18) 15 18 18 Respiratory rate source Observation Observation Observation Oxygen Delivery Method Room Air Room Air Blood Pressure (90/60-120/80) 158/103 H 155/100 H 167/98 H Blood Pressure Mean (mm Hg) 121 118 121 Source Monitor Monitor Monitor Position Sitting Sitting Semi-Fowlers Blood Pressure Location Left Arm Left Arm Left Forearm History Since Last Visit- (Skip if this is Patient's initial visit) Have you changed medications since your No No No last visit? Any new allergies or adverse reactions No No No Had a fall/change in ADL's that may No No No increase risk of falls Signs or symptoms of abuse and/or No No No neglect since last visit Have you been in the hospital since your No No last visit? Has dressing in place as prescribed Yes Yes Yes Has compression in place as prescribed N/A N/A N/A Has offloadiing in place as prescribed N/A N/A N/A Experienced any changes in pain level or No No No management Left Footwear Regular Shoe Regular Shoe Right Footwear Regular Shoe Pain Scale: 0-10 Numeric Is Patient Pain Free? Yes Yes Yes 03/28/25 14:02 - Today's Visit Information Type of service Follow-up Visit (Physician/HEALTH CARE SOCIAL WORKER ) Arrival Mode Ambulatory Transfer Assistance None Patient Identification Verified (Name & Yes ) Patient Requires Transmission-Based Precautions Vital Signs Temperature (97.8 F-99.1 F) 97.3 F L Temperature Source Temporal Pulse Rate (60-100) 102 H Pulse Location Monitor Respiratory Rate (12-18) 18 Respiratory rate source Observation Oxygen Delivery Method Room Air Blood Pressure (90/60-120/80) 162/106 H Blood Pressure Mean (mm Hg) 124 Source Monitor Position Sitting Blood Pressure Location Left Arm History Since Last Visit- (Skip if this is Patient's initial visit) Have you changed medications since your No last visit? Any new allergies or adverse reactions No Had a fall/change in ADL's that may No increase risk of falls Signs or symptoms of abuse and/or No neglect since last visit Have you been in the hospital since your No last visit? Has dressing in place as prescribed Yes Has compression in place as prescribed N/A Has offloadiing in place as prescribed N/A Experienced any changes in pain level or No management Left Footwear Right Footwear Pain Scale: 0-10 Numeric Is Patient Pain Free? Yes - Nurse 1 - General Ulcer Measurement Start: 03/07/25 13:24 Freq: Status: Active Protocol: Activity Type Activity Date Activity User E-sign Co-sign Detail Recorded Client Recorded Date Recorded By Document 03/07/25 13:24 ML [id number] 03/07/25 13:32 ML Document 03/14/25 14:01 GM [id number] 03/14/25 14:03 GM Document 03/21/25 14:37 KW [id number] 03/21/25 14:42 KW Document 03/28/25 14:02 GM [id number] 03/28/25 14:07 03/07/25 03/14/25 03/21/25 13:24 14:01 14:37 Wound Center Nurse 1 #1 lt hallux -Current Size (cm) - Length 0.5 0.4 0.7 -Current Size (cm) - Width 0.5 0.4 0.5 -Current Size (cm) - Depth 0.3 0.2 0.4 -Total Square Cm 0.25 0.16 0.35 -Date of Last Picture (Recall this 03/14/25 03/21/25 field) -Photo Taken Yes -Epithelialization None Present -Tunneling No -Undermining/Tunneling No -Circular Undermining No -Exudate Amt Medium Small Medium -Exudate Type Serosanguineous Serosanguineous Serosanguineous -Wound Margin Distinct, Distinct, Thickened Outline Outline Attached Attached -Granulation Amt Small (1-33%) Small (1-33%) Large (67-100%) -Granulation Quality [place] -Slough/Fibrin No -Necrosis Amt Medium (34-66%) None Present (0 %) -Necrotic Tissue Type Adherent Slough -Texture (Flaca-wound Skin Appearance) Assessed Assessed,Callus Assessed,Callus -Moisture (Flaca-wound Skin Appearance) Assessed Assessed Assessed -Color (Flaca-wound Skin Appearance) Assessed Assessed Assessed -Temperature (Flaca-wound Skin No Abnormality No Abnormality No Abnormality Appearance) (Pt Warm) (Pt Warm) (Pt Warm) -Tenderness on Palpation (Flaca-wound No No No Skin Appearance) -Ulcer Cleansing Rinsed/ Rinsed/ Rinsed/ Irrigated with Irrigated with Irrigated with Saline Saline Saline -Foul Odor after Cleansing No No -Anesthetic Used 5% Lidocaine 5% Lidocaine 5% Lidocaine Gel Gel Gel 03/28/25 14:02 Wound Center Nurse 1 #1 hallux -Current Size (cm) - Length 0.5 -Current Size (cm) - Width 0.5 -Current Size (cm) - Depth 0.3 -Total Square Cm 0.25 -Date of Last Picture (Recall this 03/28/25 field) -Photo Taken Yes -Epithelialization Small 1-33% -Tunneling No -Undermining/Tunneling No -Circular Undermining No -Exudate Amt Small -Exudate Type Yellow/Green -Wound Margin Distinct, Outline Attached -Granulation Amt Small (1-33%) -Granulation Quality [place] -Slough/Fibrin Yes -Necrosis Amt Small (1-33%) -Necrotic Tissue Type -Texture (Flaca-wound Skin Appearance) Assessed -Moisture (Flaca-wound Skin Appearance) Assessed -Color (Flaca-wound Skin Appearance) Assessed -Temperature (Flaca-wound Skin No Abnormality Appearance) (Pt Warm) -Tenderness on Palpation (Flaca-wound No Skin Appearance) -Ulcer Cleansing Rinsed/ Irrigated with Saline -Foul Odor after Cleansing No -Anesthetic Used 5% Lidocaine Gel WC - Nurse 2 - General Ulcer CM Notes Start: 03/07/25 13:24 Freq: Status: Active Protocol: Activity Type Activity Date Activity User E-sign Co-sign Detail Recorded Client Recorded Date Recorded By Document 03/07/25 13:43 JF [id number] 03/07/25 13:47 JF Document 03/14/25 14:10 JF [id number] 03/14/25 14:14 JF Edit Result 03/14/25 14:10 JF (1) [id number] 03/14/25 14:16 JF Document 03/21/25 14:47 DS [id number] 03/21/25 14:50 DS Edit Result 03/21/25 14:47 DS (2) [id number] 03/21/25 14:52 DS Document 03/28/25 14:28 JF [id number] 03/28/25 14:31 JF (1) #1 lt hallux - Clinical Debridement Subcutaneous => Muscle / Fascia - Tissue Removed Subcutaneous => Muscle - Debridement - Subq, 1st 20sq cm Yes => No - Debridement - Muscle / Fascia, 1st => Yes 20sq cm (2) #1 lt hallux - Clinical Debridement Subcutaneous => Muscle / Fascia - Tissue Removed Subcutaneous => Muscle - Debridement - Subq, 1st 20sq cm Yes => - Debridement - Muscle / Fascia, 1st => Yes 20sq cm 03/07/25 03/14/25 03/21/25 13:43 14:10 14:47 Wound Center Nurse 2 #1 lt hallux -Time 13:44 14:11 14:47 -Correct Patient Yes Yes Yes -Correct Side, Site, Position Yes Yes Yes -Correct Procedure Yes Yes Yes -Procedure Performed Yes Yes Yes -Type of Procedure Debridement Debridement Debridement -Clinical Debridement Subcutaneous Muscle / Fascia Muscle / Fascia -Tissue Removed Subcutaneous Muscle Muscle -Post Debridement (cm) - Length 0.5 0.6 0.9 -Post Debridement (cm) - Width 0.6 0.6 0.7 -Post Debridement (cm) - Depth 0.5 0.5 0.5 -Total Square (Post) (cm) 0.30 0.36 0.63 -Area of Debridement (cm) - Length 0.5 0.6 0.9 -Area of Debridement (cm) - Width 0.6 0.6 0.7 -Total Square (Area) (cm) 0.30 0.36 0.63 -Tunneling No No No -Undermining/Tunneling No No No -Circular Undermining No No No -Wound/Ulcer Outcome Not Healed Not Healed Not Healed -Ulcer Cleansing Rinsed/ Rinsed/ Rinsed/ Irrigated with Irrigated with Irrigated with Saline Saline Saline -Foul Odor after Cleansing No No No -Bioengineered Tissue No No No -Bleeding Controlled with Pressure Pressure Pressure -Treatment Response Procedure Procedure Procedure Tolerated Well Tolerated Well Tolerated Well -Offloading No No -Debridement - Subq, 1st 20sq cm Yes No -Debridement - Muscle / Fascia, 1st Yes Yes 20sq cm Pain Scale: 0-10 Numeric Is Patient Pain Free? Yes Yes Yes 03/28/25 14:28 Wound Center Nurse 2 #1 lt hallux -Time 14:29 -Correct Patient Yes -Correct Side, Site, Position Yes -Correct Procedure Yes -Procedure Performed Yes -Type of Procedure Debridement -Clinical Debridement Muscle / Fascia -Tissue Removed Muscle -Post Debridement (cm) - Length 0.7 -Post Debridement (cm) - Width 0.7 -Post Debridement (cm) - Depth 0.4 -Total Square (Post) (cm) 0.49 -Area of Debridement (cm) - Length 0.7 -Area of Debridement (cm) - Width 0.7 -Total Square (Area) (cm) 0.49 -Tunneling No -Undermining/Tunneling No -Circular Undermining No -Wound/Ulcer Outcome Not Healed -Ulcer Cleansing Rinsed/ Irrigated with Saline -Foul Odor after Cleansing No -Bioengineered Tissue No -Bleeding Controlled with Pressure -Treatment Response Procedure Tolerated Well -Offloading No -Debridement - Subq, 1st 20sq cm -Debridement - Muscle / Fascia, 1st Yes 20sq cm Pain Scale: 0-10 Numeric Is Patient Pain Free? Yes WC - Nurse 3 - General Ulcer D/C NN Start: 03/07/25 13:24 Freq: Status: Active Protocol: Activity Type Activity Date Activity User E-sign Co-sign Detail Recorded Client Recorded Date Recorded By Document 03/07/25 13:47 [id number] 03/07/25 13:47 Document 03/14/25 14:33 [id number] 03/14/25 14:34 Document 03/21/25 15:01 [facility] [id number] 03/21/25 15:02 [facility] Document 03/28/25 14:31 [id number] 03/28/25 14:31 03/07/25 03/14/25 03/21/25 13:47 14:33 15:01 Wound Care Center Nurse 3 #1 lt hallux -Ulcer Cleansing Rinsed/ Not Cleansed Rinsed/ Irrigated with Irrigated with Saline Saline -Foul Odor after Cleansing No No No -Primary Dressing Applied Promogran [place] Matter -Other Dressing betadine BETADINE -Primary Dressing Covered/Secured with Dry Gauze, Dry Gauze & Dry Gauze, Secured with Roll Gauze, Secured with Tape Secured with Tape Tape -Promogran [place] Matter 1 Treatment Response Procedure Tolerated Well Pain Scale: 0-10 Numeric Is Patient Pain Free? Yes Yes Yes WC - Visit Discharge Discharge Condition Stable Stable Stable Ambulatory Status Ambulatory Ambulatory Ambulatory Transportation Private Auto Private Auto Private Auto Medication Reconcilliation completed & Yes provided to patient/care provider Clinical Summary of Care Provided Yes 03/28/25 14:31 Wound Care Center Nurse 3 #1 lt hallux -Ulcer Cleansing Rinsed/ Irrigated with Saline -Foul Odor after Cleansing No -Primary Dressing Applied -Other Dressing BETADINE -Primary Dressing Covered/Secured with Dry Gauze, Secured with Tape -Promogran [place] Matter Treatment Response Pain Scale: 0-10 Numeric Is Patient Pain Free? Yes WC - Visit Discharge Discharge Condition Stable Ambulatory Status Ambulatory Transportation Private Auto Medication Reconcilliation completed & Yes provided to patient/care provider Clinical Summary of Care Provided Yes Assessment/Plan Assessment/Plan (1) Non-pressure chronic ulcer of other part of left foot with necrosis of muscle: CODE(S): L97.523 - Non-pressure chronic ulcer of other part of left foot with necrosis of muscle PLAN: Patient was examined and evaluated. All findings were discussed with the patient. All questions were answered to the patient satisfaction. Excisional debridement down to including subcutaneous tissue, fascia and muscle of the full-thickness wound to the subleft hallux IPJ done with a number 5 mm dermal curette without incident. Predebridement measurement was 0.5 x 0.6 x 0.3 cm. Postdebridement measurement 0.7 x 0.7 x 0.4 cm. The left great toe was white clean and patted dry. Betadine paint and dry sterile dressing was applied applied followed by compression wrap. We also discussed surgery on the left great toe consisting of IPJ arthroplasty with delayed primary closure of full-thickness wound. Patient is agreeable and signed surgical paperwork during today's visit. Chart reviewed consent signed. All risk and benefits were discussed with patient great detail. He understands all risk and is happy to move forward with surgical intervention. Patient will follow-up with Dr. Sosa in 1 week (2) Osteoarthritis of left foot: CODE(S): M19.072 - Primary osteoarthritis, left ankle and foot
--- NOTE | 2025-03-29 08:46 | WC ---
PHOTO-LEFT HALLUX 03/28/25
== END 2025-04-01 23:59 | disposition home or self-care (01) ==
LOC: WC 14:00
PROVIDERS: PCP Nurse Practitioner Family; Referring Provider Dermatology; Visit Provider Podiatrist Foot & Ankle Surgery
DX: L97.523 Non-pressure chronic ulcer of other part of left foot with necrosis of muscle (principal); M19.072 Primary osteoarthritis, left ankle and foot
CPT/HCPCS: 11042; 11043

== ENCOUNTER 2025-04-20 05:17 | Day surgery (SDC) | payer BC, SELFPAY ==
--- NOTE | 2025-04-06 16:57 | PAT.ANE_ITS ---
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 When Was Last Pacemaker Check QUESTION #4 FULL TEXT: You/Your Family Experience fever (hyperthermia) with Anesthesia Last Oral Intake Last Oral intake: Last Oral Intake NPO since Meds taken in AM with sips of water? Meds patient instructed to take am of surgery PONV PONV - log chipper operator: PONV - log chipper operator Female No 04/06/25 14:22 HX of Motion Sickness No 04/06/25 14:22 HX of N/V After Surgery No 04/06/25 14:22 Non-Smoker Yes 04/06/25 14:22 Duration of Surgery greater Yes 04/06/25 14:22 than 60 minutes Number of Risk Factors 2 04/06/25 14:22 PONV Score Moderate Risk 04/06/25 14:22 Height & Weight Height & Weight: Anesthesia: Height & Weight Height 6 ft 2 in 02/28/25 14:06 Respiratory Assessment Respiratory Assessment - log chipper operator: Respiratory Tract Infection Hx - log chipper operator Hx Respiratory Tract Infection No 04/06/25 14:22 STOP Sleep Apnea STOP Sleep Apnea - log chipper operator: STOP Sleep Apnea - log chipper operator Hx Hypertension Yes: CONTROLLED WITH MED 04/06/25 14:22 Hx Sleep Apnea No 04/06/25 14:22 CPAP BIPAP Do you snore loudly (louder Yes 04/06/25 14:22 than talking or can be heard Do you often feel tired/ Yes 04/06/25 14:22 fatigued/ sleepy during daytime? Has anyone observed you stop No 04/06/25 14:22 breathing during sleep? STOP Results Positive 04/06/25 14:22 QUESTION #5 FULL TEXT : Do you snore loudly (louder than talking or can be heard through closed doors)? 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 Specify any problems Hx of Preganancy in last 3 N/A 04/06/25 14:22 Months Nurse Filling Out Transfusion DSCHRIBER 04/06/25 14:22 & Questions: Date: 04/06/25 04/06/25 14:22 Time: 14:24 04/06/25 14:22 Patient unable to answer at this time (ie. confused, unrespo /Reproduction History /Reproductive History - log chipper operator: /Reproductive Hx- log chipper operator Hx Now No 04/06/25 14:22 Gestational Age (in weeks): EDC: Hx Hx Para Hx Section SAB No 04/06/25 14:22 PFSH Medical History (Updated 04/06/25 @ 14:37 by Pearl Travis) Wears dentures Pressure ulcer Arthritis Low iron Anemia High cholesterol Back pain Injury of back Injury of head and neck Seizures Gastric reflux History of pain when walking Anxiety Depression Former smoker Hypertension Ventral hernia with obstruction but no gangrene Home Medications ?Medication ?Instructions ?Recorded ?Last Taken ?Type lisdexamfetamine 70 mg capsule 70 mg PO DAILY 12/03/15 Unknown History (Vyvanse) albuterol sulfate 90 mcg/actuation 2 puff inhalation Q 4H PRN 04/17/23 Unknown History aerosol inhaler shortness of breath cetirizine 10 mg tablet (24Hour 10 mg PO DAILY allergi es 04/17/23 Unknown History Allergy) fluticasone propionate 50 2 spray intranasal DAILY all ergies 04/17/23 Unknown History mcg/actuation nasal spray,suspension hydrochlorothiazide 12.5 mg capsule 12.5 mg PO DAILY H TN 04/17/23 Unknown Hi story meloxicam 15 mg tablet 15 mg PO DAILY 04/17/23 Unkn own History omeprazole 20 mg capsule,delayed 20 mg PO DAILY Unknown History release sertraline 100 mg tablet 100 mg PO DAILY depression 0 04/17/23 Unknown History ferrous sulfate 325 mg (65 mg 325 mg PO DAILY 04/06/25 Unknown History iron) tablet lisinopril 20 mg tablet 20 mg PO DAILY 04/06/25 Unkn own History semaglutide (weight loss) 0.5 0.5 mg subcut FR 5 04/06/25 History mg/0.5 mL subcutaneous pen injector (Rica) Allergy/AdvReac Type Severity Reaction Status Date / Time latex Allergy Rash Verified 04/06/25 14:13 Surgical History (Updated 04/06/25 @ 14:37 by Pearl Travis) History of myringotomy History of tonsillectomy and adenoidectomy S/P small bowel resection History of umbilical hernia repair Social History Smoking Status: Former smoker Audit: Pertinent Findings Pertinent Findings EKG Perinent findings: 04/22/2023. Sinus tachycardia at 131 bpm. Right bundle branch block. Recommendation Anesthesia Recommendation Anesthesia recommendation: OPTIMIZED for anesthesia (In the past year patient has been ranging from 84-102 on his heart rate. Okay to proceed.)
[2025-04-20] VITALS (9 sets, daily range): BP systolic 119–148; BP diastolic 75–86; PULSE 68–79; RESP 12–20; TEMP 36.1; O2SAT 92–97; BMI 43.5
--- OUTSIDE RECORDS SUMMARY | 2025-04-20 05:24 | XMS RPT_ITS | CCD ---
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 [place] Calcium [Mass/Vol] 9.2 mg/dL Normal 8.5-10.2 [facility] Comment on above: Order Comment: Speci men Type: BLOOD SPECIMENOrdering Facility: [facility] Address: [address] [place], [place] [address] Performed By: #### 1 9123-9, 32951-1 ####[facility] LABIA [id number] [place] [id number] [place] Chloride [Moles/Vol] 102 mmol/L Normal 98-107 [facility] Comment on above: Order Comment: Speci men Type: BLOOD SPECIMENOrdering Facility: [facility] Address: [address] [place], [place] [address] Performed By: #### 1 9123-9, 84360-8 ####[facility] LABCLIA [id number] [address] [address] [place] CO2 [Moles/Vol] 26 mmol/L Normal 22-30 [facility] Comment on above: Order Comment: Speci men Type: BLOOD SPECIMENOrdering Facility: [facility] Address: [address] [place] [address] Performed By: #### 1 23-9, ####[facility] LABIA [id number] [address] [address] [place] Creatinine [Mass/Vol] 0.76 mg/dL Normal 0.73-1.22 [facility] Comment on above: Order Comment: Speci men Type: BLOOD SPECIMENOrdering Facility: [facility] Address: [address] [place] [address] Performed By: #### 1 239, ####[facility] [id number] [place] [id number] [place] Creatinine and Glomerular filtration rate.predicted panel (S/P/Bld) 119 mL/min/1.73m??? Normal >=60 [facility] Comment on above: Order Comment: Speci men Type: BLOOD SPECIMENOrdering Facility: [facility] Address: [address] [place] [address] Result Comment: Fawn mated Glomerular Filtration Rate (eGFR) is calculated using the 2020 CKD-EPI creatinine equation. This equation utilizes serum creatinine, sex, and age as parameters. The creatinine assay has traceable calibration to isotope dilution-mass spectrometry. Refer to KDIGO guidelines for clinical interpretation. In patients with unstable renal function, e.g. those with acute kidney injury, the eGFR may not accurately reflect actual GFR. Performed By: #### 1 9123-9, ####[facility] LABIA [id number] [address] [address] [place] Glucose [Mass/Vol] 93 mg/dL Normal 74-99 [facility] Comment on above: Order Comment: Boy foley Type: BLOOD SPECIMENOrdering Facility: [facility] Address: [address] [id number] Result Comment: The [place] Diabetes Association (ADA) provides guidance for cutoff values for fasting glucose and random glucose. The ADA defines fasting as no caloric intake for at least 8 hours. Fasting plasma glucose results between 100 to 125 mg/dL indicate increased risk for diabetes (prediabetes). Fasting plasma glucose results greater than or equal to 126 mg/dL meet the criteria for diagnosis of diabetes. In the absence of unequivocal hyperglycemia, results should be confirmed by repeat testing. In a patient with classic symptoms of hyperglycemia or hyperglycemic crisis, random plasma glucose results greater than or equal to 200 mg/dL meet the criteria for diagnosis of diabetes. Reference: Standards of Medical Care in Diabetes 2016, [place] Diabetes Association. Diabetes Care. 2016.39(Suppl 1). Performed By: #### 1 9123-9, 38270-3 ####[facility] LABCLIA [id number] [place] [address] [place] Potassium [Moles/Vol] 4.2 mmol/L Normal 3.7-5.1 [facility] Comment on above: Order Comment: Boy foley Type: BLOOD SPECIMENOrdering Facility: [facility] Address: [address] [place] [address] Performed By: #### 1 9123-9, ####[facility] LABCLIA [id number] [place] [id number] [place] Protein [Mass/Vol] 7.4 g/dL Normal 6.3-8.0 [facility] Comment on above: Order Comment: Boy foley Type: BLOOD SPECIMENOrdering Facility: [facility] Address: [address] [id number] Performed By: #### 1 9123-9, ####[facility] LABCLIA [id number] [address] [address] [place] Sodium [Moles/Vol] 141 mmol/L Normal 136-144 [facility] Comment on above: Order Comment: Speci men Type: BLOOD SPECIMENOrdering Facility: [facility] Address: [address] [place] [address] Performed By: #### 1 9123-9, 75092-9 ####[facility] LABCLIA [id number] [address] [address] [place] Urea nitrogen [Mass/Vol] 20 mg/dL Normal 9-24 [facility] Comment on above: Order Comment: Speci men Type: BLOOD SPECIMENOrdering Facility: [facility] Address: [address] [place] [address] Performed By: #### 1 9123-9, 24344-1 ####[facility] LABCLIA [id number] [address] [address] [place] HbA1c (Bld)on 01-01-2025 Average glucose Estimated from glycated hemoglobin (Bld) [Mass/Vol] 108 mg/dL Normal [facility] Comment on above: Order Comment: Speci men Type: BLOOD SPECIMENOrdering Facility: [facility] Address: [address] [place] [address] Result Comment: eAG: (Estimated average glucose) is a calculated value from HgbA1c and is counter sales representative of the average blood glucose level in the last 2-3 month period. Performed By: #### 5 5454-3 ####[facility] LABIA [id number] [address] [address] [place] HbA1c (Bld) [Mass fraction] 5.4 % Normal 4.3-5.6 [facility] Comment on above: Order Comment: Sunithai men Type: BLOOD SPECIMENOrdering Facility: [facility] Address: [address] [place] [address] Result Comment: [place] Diabetes Association guidelines indicate that patients with HgbA1c in the range 5.7-6.4% are at increased risk for development of diabetes, and intervention by lifestyle modification may be beneficial. HgbA1c greater or equal to 6.5% is considered diagnostic of diabetes. Performed By: #### 5 5454-3 ####[facility] LABCLIA [id number] [place] [id number] [place] Magnesium SerPl-mCncon 01-01 Magnesium [Mass/Vol] 2.2 mg/dL Normal 1.7-2.3 [facility] Comment on above: Order Comment: Speci men Type: BLOOD SPECIMENOrdering Facility: [facility] Address: [address] [place] [address] Performed By: #### 1 9123-9, 46448-3 ####[facility] LABIA [id number] [address] [place] XR LUMBAR 3V AP/LAT/L5-S1on 01-01-2025 XR LUMBAR 3V AP/LAT/L5-S1 * * *Final Report* * * DATE OF EXAM: Jan 01 2025 1:57PM WOX 5228 - XR LUMBAR 3V AP/LAT/L5-S1 / PROCEDURE REASON: multiple diagnoses * * * * Physician Interpretation * * * * EXAM: LUMBAR SPINE X-RAY SERIES CLINICAL HISTORY: Pain, palpable tenderness at L3 TECHNIQUE: AP, lateral and coned-down lateral views. COMPARISON: 12/21/2019 x-rays RESULT: Alignment: Minimal scoliosis. No subluxation. Bones: Vertebral bodies intact without fracture or bone destruction. Intervertebral discs: Intervertebral disc spaces are maintained. Mild endplate osteophytes at multiple lumbar disc levels. IMPRESSION: Mild scoliosis. Multilevel mild degenerative disc disease. No acute findings. Blind Aide: LISA Transcribe Date/Time: Jan 01 2025 2:05P Dictated by : GEORGE PENA MD This examination was interpreted and the report reviewed and electronically signed by: GEORGE PENA MD on Jan 01 2025 2:07PM EST [id number] Normal [facility] XR Lumbar spine 3 Viewson IMPRESSION: Mild scoliosis. Multilevel mild degenerative disc disease. No acute findings. Blind Aide: LISA Transcribe Date/Time: Jan 01 2025 2:05P Dictated by : GEORGE PENA MD This examination was interpreted and the report reviewed and electronically signed by: GEORGE PENA MD on Jan 01 2025 2:07PM [facility] DIVISION OF RADIOLOGY * * *Final Report* * * DATE OF EXAM: Jan 01 2025 1:57PM WOX 5228 - XR LUMBAR 3V AP/LAT/L5-S1 / PROCEDURE REASON: multiple diagnoses * * * * Physician Interpretation * * * * EXAM: LUMBAR SPINE X-RAY SERIES CLINICAL HISTORY: Pain, palpable tenderness at L3 TECHNIQUE: AP, lateral and coned-down lateral views. COMPARISON: 12/21/2019 x-rays RESULT: Alignment: Minimal scoliosis. No subluxation. Bones: Vertebral bodies intact without fracture or bone destruction. Intervertebral discs: Intervertebral disc spaces are maintained. Mild endplate osteophytes at multiple lumbar disc levels. DIVISION OF RADIOLOGY Provider, Jarret Vinson - 01/01/2025 * * *Final Report* * * DATE OF EXAM: Jan 01 2025 1:57PM WOX 5228 - XR LUMBAR 3V AP/LAT/L5-S1 / PROCEDURE REASON: multiple diagnoses * * * * Physician Interpretation * * * * EXAM: LUMBAR SPINE X-RAY SERIES CLINICAL HISTORY: Pain, palpable tenderness at L3 TECHNIQUE: AP, lateral and coned-down lateral views. COMPARISON: 12/21/2019 x-rays RESULT: Alignment: Minimal scoliosis. No subluxation. Bones: Vertebral bodies intact without fracture or bone destruction. Intervertebral discs: Intervertebral disc spaces are maintained. Mild endplate osteophytes at multiple lumbar disc levels. IMPRESSION IMPRESSION: Mild scoliosis. Multilevel mild degenerative disc disease. No acute findings. Blind Aide: PSCB Transcribe Date/Time: Jan 01 2025 2:05P Dictated by : GEORGE PENA MD This examination was interpreted and the report reviewed and electronically signed by: GEORGE PENA MD on Jan 01 2025 2:07PM [facility] Radiology Study observation (narrative) Fadia Frausto XR Lumbar spine 3 ViewsOrder ed By: [facility] Provider on 01-01-2025 [facility] CNOVon 12-19-2024 CNOV Office Visit (FAMPWS ) MAYUR WORTHINGTON ([id number]) 1985 M Date Time Provider Department 12/19/24 8:20 AM IMANI NIEVES During your visit today, we recorded the following information about you: Pulse Respiration Blood pressure Weight 85/minute 16/minute 143/83 164.5 kg Imani Nieves PA-C 12/19/2024 8:40 AM Signed - Continue your current medications as prescribed: - Wegovy: maintain your ongoing dose; prescription is refilled through July 2025. - Vyvanse: refill available 12/27 (supply good until 12/29); watch for any changes in focus or side effects as you lose weight. - Lisinopril 10 mg daily and hydrochlorothiazide 12.5 mg daily: continue both; consider asking about a single combination pill to simplify your regimen. - Flonase nasal spray daily (refills good through July). - Claritin daily for allergies. - Meloxicam (Mobic) as needed for discomfort (refills good until December). - Zoloft daily for depression. - Trazodone at bedtime only when you need it; avoid on nights when you have fewer than 8 hours to sleep to prevent grogginess as you have been doing. - Lifestyle and self-care: - Keep up regular walking for exercise (e.g., campus walks with friends); aim for consistent cardio activity--even without a gym. - Continue small, frequent meals high in protein and low in added sugars. - Drink water throughout the day; use stevia-based flavor packets if needed. - Blood pressure monitoring: - Get a working home blood pressure cuff and check your readings regularly. - If home readings consistently exceed 140/90, call the office to discuss earlier adjustment. f/u in 4 weeks. - Allergy/dermatitis care: - Continue Flonase and Claritin. - Schedule a dermatology follow-up for your skin flare and ask about trying Singulair as an alternative allergy treatment. - Laboratory testing: - Plan to repeat A1c and lipid panel in about 3 months at your next follow-up. - Follow-up appointments: - Schedule a blood pressure check in 4 weeks, preferably in the afternoon, to see if medication adjustments are needed. - Schedule a general follow-up in 3 months to review your weight progress, Wegovy therapy, and lab results. Imani Nieves PA-C 12/19/2024 9:10 AM Signed Recording using Tiem[employer] software for draft documentation of the visit was discussed with the patient/authorized counter sales representative; all questions welcomed and answered. Patient/authorized counter sales representative agreed to proceed 12/19/2024 Obesity: - On Wegovy since May 2024; tolerating well. - Weight decreased from 414 lbs in March to 362 lbs today. - Reports increased energy levels. - Engages in walking for exercise; looking for an affordable gym. - Diet consists of small, frequent, high-protein meals; drinks water with sugar-free flavoring packets. - A1c decreased from 6.3 to 5.3 when recheck in September. Hypertension: - Taking lisinopril 10 mg and HCTZ 12.5 mg daily; took both medications today. - No longer uses salt in diet. - Has a blood pressure cuff at home but unsure if it works. ADHD: - Taking Vyvanse 70 mg daily; medication is effective. - Previously on Adderall XR, which became less effective over time. Depression: - Taking Zoloft; denies current suicidal ideation. - Takes trazodone PRN for sleep; avoids use on weekends due to grogginess during 12-hour shifts. - Works second shift from 15:00 to 23:00. Allergies: - Taking Flonase and Claritin for allergies. - Has a history of atypical dermatitis; experiencing a current outbreak. plans to schedule with dermatology. Current Outpatient Medications on File Prior to Visit Medication Sig sertraline (ZOLOFT) 100 mg tablet Take 1 tablet by mouth once daily. hydroCHLOROthiazide 12.5 mg capsule Take 1 capsule by mouth once daily. silver 200 mcg/gram gel Apply to affected area once daily. traZODone (DESYREL) 50 mg tablet Take 1 tablet by mouth daily at bedtime. semaglutide, weight loss, (WEGOVY) 0.5 mg/0.5 mL pen injector Inject 0.5 mL subcutaneously one time a week. fluticasone (FLONASE) 50 mcg/actuation nasal spray Use 2 Sprays in each nostril once daily. lisinopril (ZESTRIL) 10 mg tablet Take 1 tablet by mouth once daily. gel base no.41, bulk, (HYDROGEL) gel Apply to left great toe ulceration daily cyclobenzaprine (FLEXERIL) 10 mg tablet Take 1 tablet by mouth three times a day as needed for muscle spasm. olopatadine (PATANOL) 0.1 % ophthalmic solution USE 1-2 DROPS IN BOTH EYES TWICE DAILY ondansetron orally disintegrating (ZOFRAN ODT) 4 mg disintegrating tablet Take 1 tablet by mouth every 6 hours as needed for nausea/vomiting. albuterol HFA (PROAIR HFA) 90 mcg/actuation inhaler Inhale 2 Puffs as instructed every 6 hours as needed. Clobetasol Propionate (TEMOVATE) 0.05 % external solution MIX 1 BOTTLE INTO A 1LB TUB OF CERAVE AND BLANCA (more content not included)... Normal [facility] CNOVon 10-06-2024 [facility] Office Visit (UCWSTR ) MAYUR WORTHINGTON ([id number]) 1985 M Date Time Provider Department 10/06/24 2:15 PM JACQUELINE DORAN [facility] During your visit today, we recorded the following information about you: Temperature Pulse Respiration Blood pressure 98.7 degrees 94/minute 16/minute 160/92 Weight 169 kg Jacqueline Doran PA 10/06/2024 2:27 PM Signed [facility] Subjective Mayur Worthington is a 38 year old male. Patient presents with: gum pain HPI 38-year-old male presents for gum pain. Patient states he started getting a sore on his gum a few days ago. He is unsure what caused it. Patient does state that he has dentures and occasionally will eat without them and, so has sustained cuts to his gums in the past. He cannot recall eating anything prior to this sore starting. He states that his red, tender to touch. He denies any lesions anywhere else in the mouth. No difficulty swallowing or breathing. No tongue sores. No swelling of the tongue. No fever. Has put benzocaine on it without much improvement. No other complaint. PAST MEDICAL HISTORY Diagnosis Date ADD (attention deficit disorder) Essential hypertension Febrile convulsions (simple), unspecified PMH - PAST MEDICAL HISTORY OF Color Vision - Normal Routine or ritual circumcision PAST SURGICAL HISTORY Procedure Laterality Date LX REPAIR RECURRENT VENTRAL HERNIA 04/2023 TONSILLECTOMY AND ADENOIDECTOMY TYMPANOSTOMY LOCAL/TOPICAL ANESTHESIA age 6 year ALLERGIES Elidel [Macrolide Immunosuppressant], Pollen, and Adhesive Tape-Silicones MEDICATIONS amoxicillin-clavulanat e potassium (AUGMENTIN) 875-125 mg per tablet Take 1 tablet by mouth two times a day for 7 days. hydroCHLOROthiazide 12.5 mg capsule Take 1 capsule by mouth once daily. lisdexamfetamine (VYVANSE) 70 mg capsule Take 1 capsule by mouth once daily for 30 days. [START ON 10/18/2024] lisdexamfetamine (VYVANSE) 70 mg capsule Take 1 capsule by mouth once daily for 30 days. Patient should start on October 18, 2024. [START ON 11/17/2024] lisdexamfetamine (VYVANSE) 70 mg capsule Take 1 capsule by mouth once daily for 30 days. Patient should start on November 17, 2024. silver 200 mcg/gram gel Apply to affected area once daily. lisdexamfetamine (VYVANSE) 70 mg capsule Take 1 capsule by mouth once daily for 30 days. traZODone (DESYREL) 50 mg tablet Take 1 tablet by mouth daily at bedtime. semaglutide, weight loss, (WEGOVY) 0.5 mg/0.5 mL pen injector Inject 0.5 mL subcutaneously one time a week. lisdexamfetamine (VYVANSE) 70 mg capsule Take 1 capsule by mouth once daily for 30 days. meloxicam (MOBIC) 15 mg tablet Take 1 tablet by mouth once daily. Take with food. fluticasone (FLONASE) 50 mcg/actuation nasal spray Use 2 Sprays in each nostril once daily. lisinopril (ZESTRIL) 10 mg tablet Take 1 tablet by mouth once daily. lisdexamfetamine (VYVANSE) 70 mg capsule Take 1 capsule by mouth once daily for 30 days. lisdexamfetamine (VYVANSE) 70 mg capsule Take 1 capsule by mouth once daily for 30 days. gel base no.41, bulk, (HYDROGEL) gel Apply to left great toe ulceration daily cyclobenzaprine (FLEXERIL) 10 mg tablet Take 1 tablet by mouth three times a day as needed for muscle spasm. olopatadine (PATANOL) 0.1 % ophthalmic solution USE 1-2 DROPS IN BOTH EYES TWICE DAILY sertraline (ZOLOFT) 100 mg tablet Take 1 tablet by mouth once daily. ondansetron orally disintegrating (ZOFRAN ODT) 4 mg disintegrating tablet Take 1 tablet by mouth every 6 hours as needed for nausea/vomiting. albuterol HFA (PROAIR HFA) 90 mcg/actuation inhaler Inhale 2 Puffs as instructed every 6 hours as needed. Clobetasol Propionate (TEMOVATE) 0.05 % external solution MIX 1 BOTTLE INTO A 1LB TUB OF CERAVE AND APPLY 1X DAILY TO ANY AREAS OF RASH YOU CAN SEE OR FEEL. FAMILY HISTORY Problem Relation Age of Onset other (heart failure [Other]) Other [facility] age 51 Social History Tobacco Use Smoking status: Former Current packs/day: 1.00 Types: Cigarettes Smokeless tobacco: Former Types: Chew Vaping Use Vaping status: Former Substance Use Topics Alcohol use: No Drug use: Never Review of Systems Constitutional: Negative for chills and fever. HENT: Positive for mouth sores. Negative for congestion and sore throat. Respiratory: Negative for cough and shortness of breath. Gastrointestinal: Negative for diarrhea and vomiting. Objective BP 160/92 Pulse 94 Temp 37.1 ?C (98.7 ?F) Resp 16 Wt (!) 169 kg (372 lb 9.2 oz) SpO2 95% BMI 47.84 kg/m? Physical Exam Vitals and nursing note reviewed. Constitutional: General: He is not in acute distress. Appearance: Normal appearance. He is not toxic-appearing. HENT: Mouth/Throat: Mouth: Mucous membranes are moist. Dentition: Has dentures. Gum lesions present. Comments: Patient has small superfici (more content not included)... Normal [facility] CNOVon 09-18-2024 CNOV Office Visit (FAMPWS ) MAYUR WORTHINGTON ([id number]) 1985 M Date Time Provider Department 09/18/24 8:00 AM [facility] During your visit today, we recorded the following information about you: Pulse Respiration Blood pressure Weight 84/minute 16/minute 140/86 171 kg Clemente Negro 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 09/18/2024 8:19 AM Signed Chief Complaint Patient presents with: Follow Up: 3 month follow up HPI Mayur Worthington is a 38 year old male who presents here today for Chronic Medical Conditions. ADD: Current Treatment: Vyvanse 70 mg Feels treatment is working well: Yes. Weight loss: Yes. Insomnia: No. GASTROENTEROLOGY complaints: No. Tremor: No. Mood disorder: Yes. Chest pain/Palpitations: No. Aware of risks associated with controlled substance use: Yes. Hx of misuse/abuse/diversion of meds: No. HTN: Patient is compliant with meds Yes Forgot to take today Monitors bp at home: Yes. Denies side effects: Yes. Chest pain: No. Dyspnea: No. Edema: No. Palpitations: No. Syncope: No. Headache: No. Dizziness: No. Depression: Taking zolft for moods, doing good. No SI. Sleep: Taking trazodone 50 mg at night. Past medical history, appointments, medications, allergies reviewed. EXAM: BP 140/86 Pulse 84 Resp 16 Wt (!) 171 kg (377 lb) SpO2 95% BMI 48.40 kg/m? General Appearance: Well appearing, alert, in no acute distress, well-hydrated, well nourished.. Lungs: Lungs clear to auscultation. No wheezing, rhonchi, rales.. Heart: RRR without murmur, gallop, or rubs. No ectopy. ASSESSMENT/PLAN: 1. Attention deficit hyperactivity disorder (ADHD), predominantly hyperactive type - ICD9: 314.01, ICD10: F90.1 (primary diagnosis) -Stable, continue Vyvanse as prescribed - LISDEXAMFETAMINE 70 MG CAPSULE - LISDEXAMFETAMINE 70 MG CAPSULE - LISDEXAMFETAMINE 70 MG CAPSULE 2. Difficulty sleeping - ICD9: 780.50, ICD10: G47.9 -Stable, continue trazodone 3. Prediabetes - ICD9: 790.29, ICD10: R73.03 -Reevaluate if hemoglobin A1c labs ordered 4. Current mild episode of major depressive disorder, unspecified whether recurrent (HCC) - ICD9: 296.21, ICD10: F32.0 -Stable, continue Zoloft 5. Class 3 severe obesity with body mass index (BMI) of 45.0 to 49.9 in adult, unspecified obesity type, unspecified whether serious comorbidity present (HCC) - ICD9: 278.01, V85.42, ICD10: E66.813, E66.01, Z68.42 Weight decreasing - Behavioral intervention and - Pharmacological intervention 6. Hypertension, essential - ICD9: 401.9, ICD10: I10 - Controlled, encouraged patient to take blood pressure medication prior to appointments. - Continue current medications - Recommend home blood pressure monitoring, to bring results to next visit - Encouraged sodium restriction, DASH or Mediterranean diet - Recommend regular aerobic exercise Clemente Negro 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 RTO in 3 months, sooner if needed. Get labs this morning This note was partly generated using [employer] voice recognition dictation and may contain some misspelled or inaccurate words missed on review. Allergies As of Date: 09/18/2024 Noted Allergy Reaction ELIDEL (MACROLIDE IMMUNOSUPPRESSA*2015 9 - Itching Comments: Burning and severe itching POLLEN 06/14/2008 3 - Cough ADHESIVE TAPE-SILICONES 07/07/2024 2 - Rash Date Reviewed: 09/18/2024 Reviewed by: Tabatha Palma LPN - Fully Assessed Reason for Visit: Follow Up [171] Cmt: 3 month follow up Primary Visit Diagnosis:Attention deficit hyperactivity disorder (ADHD), predominantly hyperactive type [F90.1] Other Visit Diagnoses:Difficulty sleeping [G47.9] Prediabetes [R73.03] Current mild episode of major depressive disorder, unspecified whether recurrent (HCC) [F32.0] Class 3 severe obesity with body mass index (BMI) of 45.0 to 49.9 in adult, unspecified obesity type, unspecified whether serious comorbidity present (HCC) [E66.813, E66.01, Z68.42] Hypertension, essential [I10] Order(s):lisdexamfetam ine (VYVANSE) 70 mg capsuleTake 1 capsule by mouth once daily for 30 days.Disp: 30 capsuleRfl: 0 [START ON 10/18/2024] lisdexamfetamine (VYVANSE) 70 mg capsuleTake 1 capsule by mouth once daily for 30 days. Patient should start on October 18, 2024.Disp: 30 capsuleRfl: 0 [START ON 11/17/2024] lisdexamfetamine (VYVANSE) 70 mg capsuleTake 1 capsule by mouth once daily for 30 days. Patient should start on November 17, 2024.Disp: 30 capsuleRfl: 0 Prescriptions as of 09/18/2024 - lisdexamfetamine (VYVANSE) 70 mg capsule Take 1 capsule by mouth once daily for 30 days. - lisdexamfetamine (VYVANSE) 70 mg capsule Take 1 capsule by mouth once daily for 30 days. Patient should start on October 18, 2024. - lisdexamfetamine (VYVANSE) 70 mg capsule Take 1 capsule by mouth once daily for 30 days. Patient should start on November 17, 2024. - silver 200 mcg/gram gel Apply to affected area once (more content not included)... Normal [facility] Comprehensive metabolic 2000 panelon 09-18-2024 Albumin [Mass/Vol] 4.3 g/dL Normal 3.9-4.9 [facility] Comment on above: Order Comment: Speci men Type: BLOOD SPECIMENOrdering Facility: [facility] Address: [address] [place] [address] Performed By: #### 2 4323-8 ####[facility] LABORATORYCLIA [id number] [place] [address] [place]#### 57976-6 ####[facility]ATORYCLIA [id number] [place], [place] [address] [place] [address] STATES OF [facility] LABCLIA [id number] [address] [place] ALP [Catalytic activity/Vol] 92 U/L Normal 38-113 [facility] Comment on above: Order Comment: Speci men Type: BLOOD SPECIMENOrdering Facility: [facility] Address: [address] [place] [address] Performed By: #### 2 4323-8 ####[facility]ATORYCLIA [id number] [place] [address] [place]#### 18004-5 ####[facility]ORATORYCLIA [id number] [address] OF [facility] LABCLIA [id number] [place] [address] [place] ALT With P-5'-P [Catalytic activity/Vol] 32 U/L Normal 10-54 [facility] Comment on above: Order Comment: Speci men Type: BLOOD SPECIMENOrdering Facility: [facility] Address: [address] [place] [address] Performed By: #### 2 4323-8 ####[facility]ORYCLIA [id number] [place] [address] [place]#### 31085-7 ####[facility]ORYCLIA [id number] [address] STATES OF [facility] LABCLIA [id number] [place] [address] [place] Anion gap [Moles/Vol] 11 mmol/L Normal 8-15 [facility] Comment on above: Order Comment: Speci men Type: BLOOD SPECIMENOrdering Facility: [facility] Address: [address] [place] [address] Performed By: #### 2 4323-8 ####[facility]ATORYCLIA [id number] [place] [address] [place]#### 38975-6 ####[facility]ATORYCLIA [id number] [place] [address] [place] [facility] LABCL[facility] [id number] [place] [id number] [place] AST With P-5'-P [Catalytic activity/Vol] 28 U/L Normal 14-40 [facility] Comment on above: Order Comment: Speci men Type: BLOOD SPECIMENOrdering Facility: [facility] Address: [address] [place] [address] Performed By: #### 2 4323-8 ####[facility]ATORYCLIA [id number] [place] [address] [place]#### 09044-3 ####[facility]ORYCLIA [id number] [place] [address] [place] [facility] LABCLIA [id number] [place] [address] [place] Bilirubin [Mass/Vol] 0.4 mg/dL Normal 0.2-1.3 [facility] Comment on above: Order Comment: Speci men Type: BLOOD SPECIMENOrdering Facility: [facility] Address: [address] [place] [address] Performed By: #### 2 4323-8 ####[facility]ATORYCLIA [id number] [place] [address] [place]#### 90214-5 ####[facility]ORYCLIA [id number] [place] [address] [place] [facility] LABCLIA [id number] [place] [address] [place] Calcium [Mass/Vol] 9.3 mg/dL Normal 8.5-10.2 [facility] Comment on above: Order Comment: Speci men Type: BLOOD SPECIMENOrdering Facility: [facility] Address: [address] [place] [address] Performed By: #### 2 4323-8 ####[facility]ATORYCLIA [id number] [place] [address] [place]#### 23268-0 ####[facility]ORYCLIA [id number] [place] [address] [place] [facility] LABCLIA [id number] [place] [address] [place] Chloride [Moles/Vol] 104 mmol/L Normal 98-107 [facility] Comment on above: Order Comment: Speci men Type: BLOOD SPECIMENOrdering Facility: [facility] Address: [address] [place] [address] Performed By: #### 2 4323-8 ####[facility]ATORYCLIA [id number] [place] [address] [place]#### 16009-0 ####[facility]ATORYCLIA [id number] [address] STATES OF [facility] LABCLIA [id number] [place] [address] [place] CO2 [Moles/Vol] 27 mmol/L Normal 22-30 [facility] Comment on above: Order Comment: Speci men Type: BLOOD SPECIMENOrdering Facility: [facility] Address: [address] [place] [address] Performed By: #### 2 4323-8 ####[facility]ATORYCLIA [id number] [place] [address] [place]#### 30233-1 ####[facility]ATORYCLIA [id number] [place], [place] [address] [place] [address] STATES OF [facility] LABCLIA [id number] [place] [address] [place] Creatinine [Mass/Vol] 0.77 mg/dL Normal 0.73-1.22 [facility] Comment on above: Order Comment: Speci men Type: BLOOD SPECIMENOrdering Facility: [facility] Address: [address] [place] [address] Performed By: #### 2 4323-8 ####[facility] LABORATORYCLIA [id number] [place] [address] [place]#### 12552-4 ####[facility] LABORATORYIA [id number] [address] LABCLIA [id number] [place] [address] [place] Creatinine and Glomerular filtration rate.predicted panel (S/P/Bld) 119 mL/min/1.73m??? Normal >=60 [facility] Comment on above: Order Comment: Speci men Type: BLOOD SPECIMENOrdering Facility: [facility] Address: [address] [place] [address] Result Comment: Fawn mated Glomerular Filtration Rate (eGFR) is calculated using the 2020 CKD-EPI creatinine equation. This equation utilizes serum creatinine, sex, and age as parameters. The creatinine assay has traceable calibration to isotope dilution-mass spectrometry. Refer to KDIGO guidelines for clinical interpretation. In patients with unstable renal function, e.g. those with acute kidney injury, the eGFR may not accurately reflect actual GFR. Performed By: #### 2 4323-8 ####[facility]ORATORYCLIA [id number] [place] [address] [place]#### 94062-7 ####[facility]ORATORYCLIA [id number] [place] [address] [place] [facility] LABCLIA [id number] [place] [address] [place] Glucose [Mass/Vol] 82 mg/dL Normal 74-99 [facility] Comment on above: Order Comment: Speci men Type: BLOOD SPECIMENOrdering Facility: [facility] Address: [address] [place] [address] Result Comment: The [place] Diabetes Association (ADA) provides guidance for cutoff values for fasting glucose and random glucose. The ADA defines fasting as no caloric intake for at least 8 hours. Fasting plasma glucose results between 100 to 125 mg/dL indicate increased risk for diabetes (prediabetes). Fasting plasma glucose results greater than or equal to 126 mg/dL meet the criteria for diagnosis of diabetes. In the absence of unequivocal hyperglycemia, results should be confirmed by repeat testing. In a patient with classic symptoms of hyperglycemia or hyperglycemic crisis, random plasma glucose results greater than or equal to 200 mg/dL meet the criteria for diagnosis of diabetes. Reference: Standards of Medical Care in Diabetes 2016, [place] Diabetes Association. Diabetes Care. 2016.39(Suppl 1). Performed By: #### 2 4323-8 ####[facility] LABORATORYCLIA [id number] [place] [address] [place]#### 65563-4 ####[facility] LABORATORYCLIA [id number] [address] STATES [facility] LABCLIA [id number] [place] [address] [place] Potassium [Moles/Vol] 4.9 mmol/L Normal 3.7-5.1 [facility] Comment on above: Order Comment: Speci men Type: BLOOD SPECIMENOrdering Facility: [facility] Address: [address] [place] [address] Performed By: #### 2 4323-8 ####[facility]ORATORYCLIA [id number] [place] [address] [place]#### 54206-3 ####[facility] LABORATORYCLIA [id number] [address] STATES [facility] LABCLIA [id number] [place] [address] [place] Protein [Mass/Vol] 7.0 g/dL Normal 6.3-8.0 [facility] Comment on above: Order Comment: Speci men Type: BLOOD SPECIMENOrdering Facility: [facility] Address: [address] [place] [address] Performed By: #### 2 4323-8 ####[facility]ORATORYCLIA [id number] [place] [address] [place]#### 36666-5 ####[facility]ORYCLIA [id number] [place] [address] [facility] LABCLIA [id number] [place] [address] [place] Sodium [Moles/Vol] 142 mmol/L Normal 136-144 [facility] Comment on above: Order Comment: Speci men Type: BLOOD SPECIMENOrdering Facility: [facility] Address: [address] [place] [address] Performed By: #### 2 4323-8 ####[facility]ATORYCLIA [id number] [place] [address] [place]#### 26488-4 ####[facility]ATORYCLIA [id number] [place], [place] [address] [place] [address] STATES OF [facility] LABCLIA [id number] [place] [address] [place] Urea nitrogen [Mass/Vol] 19 mg/dL Normal 9-24 [facility] Comment on above: Order Comment: Speci men Type: BLOOD SPECIMENOrdering Facility: [facility] Address: [address] [place] [address] Performed By: #### 2 4323-8 ####[facility]ORATORYCLIA [id number] [place] [address] [place]#### 42982-8 ####[facility]ATORYCLIA [id number] [place], [place] [address] [place] [address] STATES OF [facility] LABCLIA [id number] [place] [address] [place] HbA1c (Bld)on 09-18-2024 Average glucose Estimated from glycated hemoglobin (Bld) [Mass/Vol] 105 mg/dL Normal [facility] Comment on above: Order Comment: Speci men Type: BLOOD SPECIMENOrdering Facility: [facility] Address: [address] [place] [address] Result Comment: eAG: (Estimated average glucose) is a calculated value from HgbA1c and is counter sales representative of the average blood glucose level in the last 2-3 month period. Performed By: #### 5 5454-3 ####[facility] LABCLIA [id number] [place] [address] [place] HbA1c (Bld) [Mass fraction] 5.3 % Normal 4.3-5.6 [facility] Comment on above: Order Comment: Speci men Type: BLOOD SPECIMENOrdering Facility: [facility] Address: [address] [place] [address] Result Comment: [place] Diabetes Association guidelines indicate that patients with HgbA1c in the range 5.7-6.4% are at increased risk for development of diabetes, and intervention by lifestyle modification may be beneficial. HgbA1c greater or equal to 6.5% is considered diagnostic of diabetes. Performed By: #### 5 5454-3 ####[facility] LABCLIA [id number] [place] [address] [place] Lipid 1996 panelon 5 Cholesterol [Mass/Vol] 157 mg/dL Normal <200 [facility] Comment on above: Order Comment: Speci men Type: BLOOD SPECIMENOrdering Facility: [facility] Address: [address] [place] [address] Result Comment: <200 mg/dL, Desirable 200-239 mg/dL, Borderline high >239 mg/dL, High Performed By: #### 2 4323-8 ####[facility]ATORYCLIA [id number] [place] [address] [place]#### 05268-2 ####[facility]ATORYCLIA [id number] [place] [address] [place] [facility] LABCLIA [id number] [place] [address] [place] Cholesterol in HDL [Mass/Vol] 28 mg/dL Low >39 [facility] Comment on above: Order Comment: Speci men Type: BLOOD SPECIMENOrdering Facility: [facility] Address: [address] [place] [address] Result Comment: 40-5 9 mg/dL, Acceptable >59 mg/dL, High: Negative risk factor for coronary heart disease <40 mg/dL, Low: Positive risk factor for coronary heart disease Performed By: #### 2 4323-8 ####[facility]ATORYCLIA [id number] [address] [place]#### 66331-4 ####[facility]ORATORYCLIA [id number] [address] LABCLIA [id number] [address] STATES [facility] Cholesterol in LDL [Mass/Vol] 101 mg/dL High <100 [facility] Comment on above: Order Comment: Sunithai men Type: BLOOD SPECIMENOrdering Facility: [facility] Address: [address] [place] [address] Result Comment: <100 mg/dL, Optimal 100-129 mg/dL, Near optimal/above optimal 130-159 mg/dL, Borderline high 160-189 mg/dL, High >189 mg/dL, Very high Secondary prevention optimal LDL Cholesterol levels are recommended to be < 70 mg/dL Performed By: #### 2 4323-8 ####[facility]ATORYCLIA [id number] [address] [place]#### 76683-4 ####[facility]ATORYCLIA [id number] [address] LABCLIA [id number] [address] [place] Cholesterol in LDL/Cholesterol in HDL [Mass ratio] 3.61 {ratio} High <2.54 [facility] Comment on above: Order Comment: Speci men Type: BLOOD SPECIMENOrdering Facility: [facility] Address: [address] [place] [address] Result Comment: Lars rosario: 1. National Cholesterol Education Program ATP III Guideline At-A-Glance Quick Desk Reference: National Heart, Lung, and Blood [place]. National Institutes of Health. 2001: NIH Publication No. 01-3305. 2. An International Atherosclerosis Society position paper: global recommendations for the management of dyslipidemia: executive summary, Atherosclerosis. 2014: 232(2):410-413. Performed By: #### 2 4323-8 ####[facility]ATORYCLIA [id number] [address]#### 00073-9 ####[facility]ATORYCLIA [id number] [address] LABCLIA [id number] [address] STATES OF [facility] Cholesterol in VLDL [Mass/Vol] 28 mg/dL Normal <30 [facility] Comment on above: Order Comment: Speci men Type: BLOOD SPECIMENOrdering Facility: [facility] Address: [address] [place] [address] Performed By: #### 2 4323-8 ####[facility]ATORYCLIA [id number] [address]#### 76773-6 ####[facility]ATORYCLIA [id number] [address] LABCLIA [id number] [address] STATES OF [facility] Cholesterol non HDL [Mass/Vol] 129 mg/dL Normal <130 [facility] Comment on above: Order Comment: Speci men Type: BLOOD SPECIMENOrdering Facility: [facility] Address: [address] [place] [address] Result Comment: <130 mg/dL, Optimal 130-159 mg/dL, Near optimal/above optimal 160-189 mg/dL, Borderline high 190-219 mg/dL, High >219 mg/dL, Very high Secondary prevention optimal non HDL Cholesterol levels are recommended to be <100 mg/dL Performed By: #### 2 4323-8 ####[facility]ORATORYCLIA [id number] [place] [address] [place]#### 63863-6 ####[facility]ATORYCLIA [id number] [place] [address] [place] OF [facility] LABCLIA [id number] [place] [address] [place] Cholesterol.total/Choles terol in HDL [Mass ratio] 5.61 {ratio} High <5.10 [facility] Comment on above: Order Comment: Speci men Type: BLOOD SPECIMENOrdering Facility: [facility] Address: [address] [place] [address] Performed By: #### 2 4323-8 ####[facility]ATORYCLIA [id number] [place] [address] [place]#### 92160-8 ####[facility]ATORYCLIA [id number] [place], [place] [address] [place] [address] STATES OF [facility] LABCLIA [id number] [place] [address] [place] FASTING TIME 12 hrs Normal [facility] Comment on above: Order Comment: Speci men Type: BLOOD SPECIMENOrdering Facility: [facility] Address: [address] [place] [address] Performed By: #### 2 4323-8 ####[facility]ATORYCLIA [id number] [place] [address] [place]#### 42509-9 ####[facility]ATORYCLIA [id number] [place], [place] [address] [place] [address] STATES OF [facility] LABCLIA [id number] [place] [address] [place] Triglyceride [Mass/Vol] 142 mg/dL Normal <150 [facility] Comment on above: Order Comment: Speci men Type: BLOOD SPECIMENOrdering Facility: [facility] Address: [address] [place], [place] [id number] Result Comment: <150 mg/dL, Normal 150-199 mg/dL, Borderline high 200-499 mg/dL, High >499 mg/dL, Very high Performed By: #### 2 4323-8 ####[facility] LABORATORYCLIA [id number] [address] [place]#### 97115-7 ####[facility] LABORATORYCLIA [id number] [place] [id number] [facility] LABCLIA [id number] [facility] [address] CNOVon 09-01-2024 CNOV Office Visit (PODIWS ) MAYUR WORTHINGTON ([id number]) 1985 M Date Time Provider Department 09/01/24 9:30 AM SHIVAM CUN[place]AM PODIWS During your visit today, we recorded the following information about you: Shivam Cunningham 09/01/2024 9:40 AM Signed FOLLOW UP PODIATRIC OFFICE VISIT Chief Complaint: This 38 year old who presents for follow up:b/l hallux ulceration. Patient presents to clinic for follow-up b/l hallux ulceration. Has received custom inserts Feels the inserts are helping Patient applies silvergel as needed PAIN EVALUATION No data found in the last 1 encounters. Hemoglobin A1C Date Value Ref Range Status 05/10/2024 6.3 (H) 4.3 - 5.6 % Final Comment: [place] Diabetes Association guidelines indicate that patients with HgbA1c in the range 5.7-6.4% are at increased risk for development of diabetes, and intervention by lifestyle modification may be beneficial. HgbA1c greater or equal to 6.5% is considered diagnostic of diabetes. PCP: aMrvin Sheets MD PAST MEDICAL HISTORY Diagnosis Date ADD (attention deficit disorder) Essential hypertension Febrile convulsions (simple), unspecified PMH - PAST MEDICAL HISTORY OF Color Vision - Normal Routine or ritual circumcision Current Outpatient Medications Medication Sig lisdexamfetamine (VYVANSE) 70 mg capsule Take 1 capsule by mouth once daily for 30 days. traZODone (DESYREL) 50 mg tablet Take 1 tablet by mouth daily at bedtime. semaglutide, weight loss, (WEGOVY) 0.5 mg/0.5 mL pen injector Inject 0.5 mL subcutaneously one time a week. meloxicam (MOBIC) 15 mg tablet Take 1 tablet by mouth once daily. Take with food. fluticasone (FLONASE) 50 mcg/actuation nasal spray Use 2 Sprays in each nostril once daily. lisinopril (ZESTRIL) 10 mg tablet Take 1 tablet by mouth once daily. gel base no.41, bulk, (HYDROGEL) gel Apply to left great toe ulceration daily cyclobenzaprine (FLEXERIL) 10 mg tablet Take 1 tablet by mouth three times a day as needed for muscle spasm. olopatadine (PATANOL) 0.1 % ophthalmic solution USE 1-2 DROPS IN BOTH EYES TWICE DAILY sertraline (ZOLOFT) 100 mg tablet Take 1 tablet by mouth once daily. hydroCHLOROthiazide 12.5 mg capsule Take 1 capsule by mouth once daily. ondansetron orally disintegrating (ZOFRAN ODT) 4 mg disintegrating tablet Take 1 tablet by mouth every 6 hours as needed for nausea/vomiting. albuterol HFA (PROAIR HFA) 90 mcg/actuation inhaler Inhale 2 Puffs as instructed every 6 hours as needed. Clobetasol Propionate (TEMOVATE) 0.05 % external solution MIX 1 BOTTLE INTO A 1LB TUB OF CERAVE AND APPLY 1X DAILY TO ANY AREAS OF RASH YOU CAN SEE OR FEEL. lisdexamfetamine (VYVANSE) 70 mg capsule Take 1 capsule by mouth once daily for 30 days. lisdexamfetamine (VYVANSE) 70 mg capsule Take 1 capsule by mouth once daily for 30 days. lisdexamfetamine (VYVANSE) 70 mg capsule Take 1 capsule by mouth once daily for 30 days. No current facility-administered medications for this visit. ALLERGIES Allergen Reactions Shanice [Macrolide I* Itching Burning and severe itching Pollen Cough Adhesive Tape-Silic* Rash PAST SURGICAL HISTORY Procedure Laterality Date LX REPAIR RECURRENT VENTRAL HERNIA 04/2023 TONSILLECTOMY AND ADENOIDECTOMY TYMPANOSTOMY LOCAL/TOPICAL ANESTHESIA age 6 year Physical Exam: OBJECTIVE: Constitutional: Pt is a well developed 38 year old male who is alert, oriented, cooperative and in no apparent distress. Eyes: Following during examination. No redness or drainage. Respiratory: RR normal and nonlabored. Even breathing. No evidence of distress. Psychology: Patient is engaged during conversation. Normal affect and mood. Does not appear depressed or anxious. NVSI unchanged from previous visit. Dermatological: Nails 1-5 b/l are normal. Webspaces clean and dry 1-4 b/l. Skin appears well hydrated and supple. good color, texture, turgor. No open lesions present. Callus present to b/l hallux ipj. No ulceration. Fissure is noted to left hallux. No signs of infection Musculoskeletal/Orthop aedic: Patient has no pain to palpation of b/l feet Flatfoot is noted b/l. ASSESSMENT: (L97.521) Ulcer of toe of left foot, limited to breakdown of skin (HCC) (primary encounter diagnosis) (L84) Callus of foot (M76.829) Posterior tibial tendon dysfunction PLAN: Ulcerations are now healed. Continue with pummice stone as needed and continue with lotion to help limit dryness of feet He will continue to benefit from the use of inserts to offload hallux ipj For his fissures, he will continue to benefit from either lotion or silver gel. Silver gel was prescribed Fissure of left hallux was debrided as coutesy Can f/u prn Shivam Cunningham DPM Referring Provider: SHIVAM CUNNINGHAM [[id number]] Allergies As of Date: 09/01/2024 Noted Allergy Reaction ELIDEL (MACROLIDE IM (more content not included)... Normal [facility] Arianna 08-08-2024 [facility] Telephone (FAMPWS) MAYUR WORTHINGTON ([id number]) 1985 M Date Time Provider Department 08/08/24 MARVIN SHEETS During your visit today, we recorded the following information about you: Tamera Bar LPN 08/08/2024 9:50 AM Signed Fax from [facility] pharmacy: Clarification needed for medication, written for inject 1mg/ml, sig for wegovy 0.5 mg is to inject 0.5 ml, please clarify. semaglutide, weight loss, (WEGOVY) 0.5 mg/0.5 mL pen injector Inject 1 mL subcutaneously one time a week. Clemente Negro APRN.CNP 08/08/2024 10:37 AM Signed Sent Clemente Negro APRN.CNP Allergies As of Date: 08/08/2024 Noted Allergy Reaction ELIDEL (MACROLIDE IMMUNOSUPPRESSA*2015 9 - Itching Comments: Burning and severe itching POLLEN 06/14/2008 3 - Cough ADHESIVE TAPE-SILICONES 07/07/2024 2 - Rash Date Reviewed: 08/04/2024 Reviewed by: Shila Cao LPN - Fully Assessed Reason for Visit: Medication Problem [65] Prescriptions as of 08/08/2024 - semaglutide, weight loss, (WEGOVY) 0.5 mg/0.5 mL pen injector Inject 0.5 mL subcutaneously one time a week. - lisdexamfetamine (VYVANSE) 70 mg capsule Take 1 capsule by mouth once daily for 30 days. - meloxicam (MOBIC) 15 mg tablet Take 1 tablet by mouth once daily. Take with food. - fluticasone (FLONASE) 50 mcg/actuation nasal spray Use 2 Sprays in each nostril once daily. - lisinopril (ZESTRIL) 10 mg tablet Take 1 tablet by mouth once daily. - lisdexamfetamine (VYVANSE) 70 mg capsule Take 1 capsule by mouth once daily for 30 days. - traZODone (DESYREL) 50 mg tablet Take 1 tablet by mouth daily at bedtime. - lisdexamfetamine (VYVANSE) 70 mg capsule Take 1 capsule by mouth once daily for 30 days. - lisdexamfetamine (VYVANSE) 70 mg capsule Take 1 capsule by mouth once daily for 30 days. - gel base no.41, bulk, (HYDROGEL) gel Apply to left great toe ulceration daily - cyclobenzaprine (FLEXERIL) 10 mg tablet Take 1 tablet by mouth three times a day as needed for muscle spasm. - olopatadine (PATANOL) 0.1 % ophthalmic solution USE 1-2 DROPS IN BOTH EYES TWICE DAILY - sertraline (ZOLOFT) 100 mg tablet Take 1 tablet by mouth once daily. - hydroCHLOROthiazide 12.5 mg capsule Take 1 capsule by mouth once daily. - ondansetron orally disintegrating (ZOFRAN ODT) 4 mg disintegrating tablet Take 1 tablet by mouth every 6 hours as needed for nausea/vomiting. - albuterol HFA (PROAIR HFA) 90 mcg/actuation inhaler Inhale 2 Puffs as instructed every 6 hours as needed. - Clobetasol Propionate (TEMOVATE) 0.05 % external solution MIX 1 BOTTLE INTO A 1LB TUB OF CERAVE AND APPLY 1X DAILY TO ANY AREAS OF RASH YOU CAN SEE OR FEEL. Problem List As Of Date 08/08/2024 Noted Resolved Essential hypertension [I10] 04/01/2005 Attention deficit disorder [F98.8] 04/27/2006 BACKACHE NOS [M54.9] 02/17/2007 03/25/2007 Allergic conjunctivitis [H10.10] 10/16/2014 Eczema, dyshidrotic [L30.1] 04/30/2015 Chronic bilateral low back pain with bilateral *01/09/2020 Obesity, Class III, BMI 40-49.9 (morbid obesity*05/19/2022 Encounter Status:Closed by CLEMENTE NEGRO on 08/08/24 [facility] [place]io 08-04-2024 CNOV Office Visit (PODIWS ) LUCIA,MAYUR A ([id number]) 1985 M Date Time Provider Department 08/04/24 1:00 PM SHIVAM CUNNINGHAM During your visit today, we recorded the following information about you: Shila Cao LPN 08/05/2024 10:41 PM Signed AMB ROOMING INTAKE FLOWSHEET DATA Patient presents with: Left Great Toe - Follow Up, Ulcer Shila CaoALECIA Matthew 08/04/2024 1:13 PM Signed Your wound is nearly healed. Would continue with topical lotion/cream or silver gel Continue with boot at home. Use insert with offloading pad at work Await the arrival of inserts Follow-up in 1 month Jarrell Zavala MA 08/05/2024 10:41 PM Signed Antibiotic ointment and Band-Aid applied per request of Dr. Cunningham. JERRY Graham Matthew 08/05/2024 10:41 PM Signed FOLLOW UP PODIATRIC OFFICE VISIT Chief Complaint: This 38 year old who presents for follow up:b/l hallux callus Patient presents to clinic for follow-up callus to b/l hallux He presents wearing pneumatic boot on left foot He was evaluated for orthotics. Has yet to receive Has been off work for the past few weeks. Is scheduled to return to work tomorrow. PAIN EVALUATION No data found in the last 1 encounters. Hemoglobin A1C Date Value Ref Range Status 05/10/2024 6.3 (H) 4.3 - 5.6 % Final Comment: [place] [employer] guidelines indicate that patients with HgbA1c in the range 5.7-6.4% are at increased risk for development of diabetes, and intervention by lifestyle modification may be beneficial. HgbA1c greater or equal to 6.5% is considered diagnostic of diabetes. PCP: Marvin Sheets MD PAST MEDICAL HISTORY Diagnosis Date ADD (attention deficit disorder) Essential hypertension Febrile convulsions (simple), unspecified PMH - PAST MEDICAL HISTORY OF Color Vision - Normal Routine or ritual circumcision Current Outpatient Medications Medication Sig lisdexamfetamine (VYVANSE) 70 mg capsule Take 1 capsule by mouth once daily for 30 days. semaglutide, weight loss, (WEGOVY) 0.5 mg/0.5 mL pen injector Inject 1 mL subcutaneously one time a week. meloxicam (MOBIC) 15 mg tablet Take 1 tablet by mouth once daily. Take with food. fluticasone (FLONASE) 50 mcg/actuation nasal spray Use 2 Sprays in each nostril once daily. lisinopril (ZESTRIL) 10 mg tablet Take 1 tablet by mouth once daily. lisdexamfetamine (VYVANSE) 70 mg capsule Take 1 capsule by mouth once daily for 30 days. traZODone (DESYREL) 50 mg tablet Take 1 tablet by mouth daily at bedtime. lisdexamfetamine (VYVANSE) 70 mg capsule Take 1 capsule by mouth once daily for 30 days. lisdexamfetamine (VYVANSE) 70 mg capsule Take 1 capsule by mouth once daily for 30 days. gel base no.41, bulk, (HYDROGEL) gel Apply to left great toe ulceration daily cyclobenzaprine (FLEXERIL) 10 mg tablet Take 1 tablet by mouth three times a day as needed for muscle spasm. olopatadine (PATANOL) 0.1 % ophthalmic solution USE 1-2 DROPS IN BOTH EYES TWICE DAILY sertraline (ZOLOFT) 100 mg tablet Take 1 tablet by mouth once daily. hydroCHLOROthiazide 12.5 mg capsule Take 1 capsule by mouth once daily. ondansetron orally disintegrating (ZOFRAN ODT) 4 mg disintegrating tablet Take 1 tablet by mouth every 6 hours as needed for nausea/vomiting. albuterol HFA (PROAIR HFA) 90 mcg/actuation inhaler Inhale 2 Puffs as instructed every 6 hours as needed. Clobetasol Propionate (TEMOVATE) 0.05 % external solution MIX 1 BOTTLE INTO A 1LB TUB OF CERAVE AND APPLY 1X DAILY TO ANY AREAS OF RASH YOU CAN SEE OR FEEL. No current facility-administered medications for this visit. ALLERGIES Allergen Reactions Shanice [Macrolide I* Itching Burning and severe itching Pollen Cough Adhesive Tape-Silic* Rash PAST SURGICAL HISTORY Procedure Laterality Date LX REPAIR RECURRENT VENTRAL HERNIA 04/2023 TONSILLECTOMY AND ADENOIDECTOMY TYMPANOSTOMY LOCAL/TOPICAL ANESTHESIA age 6 year Physical Exam: OBJECTIVE: Constitutional: Pt is a well developed 38 year old male who is alert, oriented, cooperative and in no apparent distress. Eyes: Following during examination. No redness or drainage. Respiratory: RR normal and nonlabored. Even breathing. No evidence of distress. Psychology: Patient is engaged during conversation. Normal affect and mood. Does not appear depressed or anxious. NVSI unchanged from previous visit. Dermatological: Pre-ulcerative callus is noted to left hallux. Very superficial bleed to left hallux. Fissure is noted to left medial heel and left hallux No ulceration noted to right hallux. Musculoskeletal/Orthop aedic: Patient has pain to palpation of left hallux at site of fissuring Flatfoot is noted to b/l feet ASSESSMENT: (L97.521) Ulcer of toe of left foot, limited to breakdown of skin (HCC) (primary encounter diagnosis) (L84) Callus of foot (more content not included)... Normal [facility] CNOVon 07-17-2024 CNOV Office Visit (FAMPWS ) MAYUR WORTHINGTON ([id number]) 1985 M Date Time Provider Department 07/17/24 8:20 AM CLEMENTE NEGRO During your visit today, we recorded the following information about you: Pulse Respiration Blood pressure Weight 88/minute 20/minute 138/84 176 kg Clemente Negro APRN.[facility] 07/17/2024 8:19 AM Signed Chief Complaint Patient presents with: Follow Up HPI Mayur Worthington is a 38 year old male who presents here today for Chronic Medical Conditions. follow up for weight management . Patient following up today for weight management. He is taking Wegovy 0.5 mg once weekly. He is tolerating the medication without side effects. He has lost about 26 pounds over the last few months. His ultimate goal is to become healthier but also decrease or eliminate some of the medication. We have extensively discussed reducing or limiting his hydrochlorothiazide, lisinopril. His blood pressure today is mildly elevated in the normal range. We will increase his Wegovy today to 1.0 weekly. Continue to focus on diet and exercise. He will see me back as scheduled in 3 months to hopefully reduce or eliminate a blood pressure medication. Past medical history, appointments, medications, allergies reviewed. EXAM: BP 138/84 Pulse 88 Resp 20 Wt (!) 176 kg (388 lb) SpO2 98% BMI 49.82 kg/m? General Appearance: Well appearing, alert, in no acute distress, well-hydrated, well nourished.. Obese Lungs: Lungs clear to auscultation. No wheezing, rhonchi, rales.. Heart: RRR without murmur, gallop, or rubs. No ectopy. ASSESSMENT/PLAN: 1. Obesity, Class III, BMI 40-49.9 (morbid obesity) ([facility]) - ICD9: 278.01, ICD10: E66.01 Weight decreasing - Behavioral intervention and - Pharmacological intervention - SEMAGLUTIDE (WEIGHT LOSS) 1 MG/0.5 ML SUBCUTANEOUS PEN INJECTOR Clemente Negro 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 RTO in 3 months, sooner if needed. Labs prior. This note was partly generated using [employer] voice recognition dictation and may contain some misspelled or inaccurate words missed on review. Allergies As of Date: 07/17/2024 Noted Allergy Reaction ELIDEL (MACROLIDE IMMUNOSUPPRESSA*2015 9 - Itching Comments: Burning and severe itching POLLEN 06/14/2008 3 - Cough ADHESIVE TAPE-SILICONES 07/07/2024 2 - Rash Date Reviewed: 07/17/2024 Reviewed by: Tamera Bar LPN - Fully Assessed Reason for Visit: Follow Up [171] Primary Visit Diagnosis:Obesity, Class III, BMI 40-49.9 (morbid obesity) ([facility]) [E66.01] Order(s):semaglutide, weight loss, (WEGOVY) 1 mg/0.5 mL pen injectorInject 0.5 mL subcutaneously one time a week.Disp: 4 EachRfl: 5 Prescriptions as of 07/17/2024 - semaglutide, weight loss, (WEGOVY) 1 mg/0.5 mL pen injector Inject 0.5 mL subcutaneously one time a week. - meloxicam (MOBIC) 15 mg tablet Take 1 tablet by mouth once daily. Take with food. - fluticasone (FLONASE) 50 mcg/actuation nasal spray Use 2 Sprays in each nostril once daily. - lisdexamfetamine (VYVANSE) 70 mg capsule Take 1 capsule by mouth once daily for 30 days. Patient should start on June 23, 2024. - lisinopril (ZESTRIL) 10 mg tablet Take 1 tablet by mouth once daily. - lisdexamfetamine (VYVANSE) 70 mg capsule Take 1 capsule by mouth once daily for 30 days. - traZODone (DESYREL) 50 mg tablet Take 1 tablet by mouth daily at bedtime. - lisdexamfetamine (VYVANSE) 70 mg capsule Take 1 capsule by mouth once daily for 30 days. - lisdexamfetamine (VYVANSE) 70 mg capsule Take 1 capsule by mouth once daily for 30 days. - gel base no.41, bulk, (HYDROGEL) gel Apply to left great toe ulceration daily - cyclobenzaprine (FLEXERIL) 10 mg tablet Take 1 tablet by mouth three times a day as needed for muscle spasm. - olopatadine (PATANOL) 0.1 % ophthalmic solution USE 1-2 DROPS IN BOTH EYES TWICE DAILY - sertraline (ZOLOFT) 100 mg tablet Take 1 tablet by mouth once daily. - hydroCHLOROthiazide 12.5 mg capsule Take 1 capsule by mouth once daily. - ondansetron orally disintegrating (ZOFRAN ODT) 4 mg disintegrating tablet Take 1 tablet by mouth every 6 hours as needed for nausea/vomiting. - albuterol HFA (PROAIR HFA) 90 mcg/actuation inhaler Inhale 2 Puffs as instructed every 6 hours as needed. - Clobetasol Propionate (TEMOVATE) 0.05 % external solution MIX 1 BOTTLE INTO A 1LB TUB OF CERAVE AND APPLY 1X DAILY TO ANY AREAS OF RASH YOU CAN SEE OR FEEL. Problem List As Of Date 07/17/2024 Noted Resolved Essential hypertension [I10] 04/01/2005 Attention deficit disorder [F98.8] 04/27/2006 BACKACHE NOS [M54.9] 02/17/2007 03/25/2007 Allergic conjunctivitis [H10.10] 10/16/2014 Eczema, dyshidrotic [L30.1] 04/30/2015 Chronic bilateral low back pain with bilateral *01/09/2020 Obesity, Class III, BMI 40-49.9 (morbid obesity*05/19/2022 Prescriptions ordered this encounter Disp Refills Start End SEMAGLUTIDE (WE (more content not included)... Normal [facility] CNOVon 07-07-2024 CNOV Office Visit (PODIWS ) MAYUR WORTHINGTON ([id number]) 1985 M Date Time Provider Department 07/07/24 10:45 AM SHIVAM CUNNINGHAM PODIWS During your visit today, we recorded the following information about you: Shivam Cunningham 07/07/2024 11:14 AM Signed Continue with silvergel to left great toe Would avoid any adhesive bandages Once healed, use moisturizing lotion, ie gold garcia, eucerin, vaseline intensive care Use boot whenever possible Get fitted for inserts. Make sure to have them offload the great toe. Can use powerstep inserts at work with donut hole pads as instructed or cut out hole in insert. Shivam Cunningham 07/10/2024 7:55 AM Signed FOLLOW UP PODIATRIC OFFICE VISIT Chief Complaint: This 38 year old who presents for follow up:b/l hallux callus/ulceration Patient presents to clinic for follow-up b/l hallux Has ulceration of left hallux and pre-ulcerative callus of right hallux Has been using pneumatic boot to the left foot and has been off work (vacation). Feels the lesion is improving. PAIN EVALUATION No data found in the last 1 encounters. Hemoglobin A1C Date Value Ref Range Status 05/10/2024 6.3 (H) 4.3 - 5.6 % Final Comment: [place] [employer] guidelines indicate that patients with HgbA1c in the range 5.7-6.4% are at increased risk for development of diabetes, and intervention by lifestyle modification may be beneficial. HgbA1c greater or equal to 6.5% is considered diagnostic of diabetes. PCP: Marvin Sheets MD PAST MEDICAL HISTORY Diagnosis Date ADD (attention deficit disorder) Essential hypertension Febrile convulsions (simple), unspecified PMH - PAST MEDICAL HISTORY OF Color Vision - Normal Routine or ritual circumcision Current Outpatient Medications Medication Sig semaglutide, weight loss, (WEGOVY) 0.5 mg/0.5 mL pen injector Inject 0.5 mL subcutaneously one time a week. lisdexamfetamine (VYVANSE) 70 mg capsule Take 1 capsule by mouth once daily for 30 days. Patient should start on June 23, 2024. lisinopril (ZESTRIL) 10 mg tablet Take 1 tablet by mouth once daily. traZODone (DESYREL) 50 mg tablet Take 1 tablet by mouth daily at bedtime. gel base no.41, bulk, (HYDROGEL) gel Apply to left great toe ulceration daily cyclobenzaprine (FLEXERIL) 10 mg tablet Take 1 tablet by mouth three times a day as needed for muscle spasm. olopatadine (PATANOL) 0.1 % ophthalmic solution USE 1-2 DROPS IN BOTH EYES TWICE DAILY sertraline (ZOLOFT) 100 mg tablet Take 1 tablet by mouth once daily. hydroCHLOROthiazide 12.5 mg capsule Take 1 capsule by mouth once daily. ondansetron orally disintegrating (ZOFRAN ODT) 4 mg disintegrating tablet Take 1 tablet by mouth every 6 hours as needed for nausea/vomiting. albuterol HFA (PROAIR HFA) 90 mcg/actuation inhaler Inhale 2 Puffs as instructed every 6 hours as needed. Clobetasol Propionate (TEMOVATE) 0.05 % external solution MIX 1 BOTTLE INTO A 1LB TUB OF CERAVE AND APPLY 1X DAILY TO ANY AREAS OF RASH YOU CAN SEE OR FEEL. meloxicam (MOBIC) 15 mg tablet Take 1 tablet by mouth once daily. Take with food. fluticasone (FLONASE) 50 mcg/actuation nasal spray Use 2 Sprays in each nostril once daily. lisdexamfetamine (VYVANSE) 70 mg capsule Take 1 capsule by mouth once daily for 30 days. lisdexamfetamine (VYVANSE) 70 mg capsule Take 1 capsule by mouth once daily for 30 days. lisdexamfetamine (VYVANSE) 70 mg capsule Take 1 capsule by mouth once daily for 30 days. No current facility-administered medications for this visit. ALLERGIES Allergen Reactions Elidel [Macrolide I* Itching Burning and severe itching Pollen Cough Adhesive Tape-Silic* Rash PAST SURGICAL HISTORY Procedure Laterality Date LX REPAIR RECURRENT VENTRAL HERNIA 04/2023 TONSILLECTOMY AND ADENOIDECTOMY TYMPANOSTOMY LOCAL/TOPICAL ANESTHESIA age 6 year Physical Exam: OBJECTIVE: Constitutional: Pt is a well developed 38 year old male who is alert, oriented, cooperative and in no apparent distress. Eyes: Following during examination. No redness or drainage. Respiratory: RR normal and nonlabored. Even breathing. No evidence of distress. Psychology: Patient is engaged during conversation. Normal affect and mood. Does not appear depressed or anxious. NVSI unchanged from previous visit. Dermatological: Minimal callus is noted to right hallux. Pre-ulcerative callus of left hallux. Following debridement, he has 1 mm x 1 mm ulceration without infection. Dryness is noted to b/l feet Musculoskeletal: flatfoot is noted b/l. ASSESSMENT: (L97.521) Ulcer of toe of left foot, limited to breakdown of skin (HCC) (primary encounter diagnosis) (L84) Callus of foot (T73.629) Posterior tibial tendon dysfunction PLAN: Discussed ulceration of left hallux. There has been reduction in size of ulceration. Today, the lesion was sharply d (more content not included)... Normal [facility] Arianna 07-06-2024 [facility] Telephone (PODIWS) MAYUR WORTHINGTON ([id number]) 1985 M Date Time Provider Department 07/06/24 SHIVAM CUNNINGHAM During your visit today, we recorded the following information about you: Shila Cao LPN 07/06/2024 8:32 AM Signed Called patient to see if patient would be able to come in at 1045 tomorrow instead of 1. Patient sitter answer. Left message with sister to call [facility]. ALECIA Roman SonaJERRY 07/06/2024 8:56 AM Signed Patient returned call. He can come in tomorrow at 10:45. Allergies As of Date: 07/06/2024 Noted Allergy Reaction SHANICE (MACROLIDE IMMUNOSUPPRESSA*2015 9 - Itching Comments: Burning and severe itching POLLEN 06/14/2008 3 - Cough Date Reviewed: 06/23/2024 Reviewed by: Rosie De Luna, JOSE LUIS - Fully Assessed Prescriptions as of 07/06/2024 - semaglutide, weight loss, (WEGOVY) 0.5 mg/0.5 mL pen injector Inject 0.5 mL subcutaneously one time a week. - lisdexamfetamine (VYVANSE) 70 mg capsule Take 1 capsule by mouth once daily for 30 days. Patient should start on June 23, 2024. - lisinopril (ZESTRIL) 10 mg tablet Take 1 tablet by mouth once daily. - lisdexamfetamine (VYVANSE) 70 mg capsule Take 1 capsule by mouth once daily for 30 days. - traZODone (DESYREL) 50 mg tablet Take 1 tablet by mouth daily at bedtime. - lisdexamfetamine (VYVANSE) 70 mg capsule Take 1 capsule by mouth once daily for 30 days. - lisdexamfetamine (VYVANSE) 70 mg capsule Take 1 capsule by mouth once daily for 30 days. - gel base no.41, bulk, (HYDROGEL) gel Apply to left great toe ulceration daily - cyclobenzaprine (FLEXERIL) 10 mg tablet Take 1 tablet by mouth three times a day as needed for muscle spasm. - olopatadine (PATANOL) 0.1 % ophthalmic solution USE 1-2 DROPS IN BOTH EYES TWICE DAILY - sertraline (ZOLOFT) 100 mg tablet Take 1 tablet by mouth once daily. - meloxicam (MOBIC) 15 mg tablet Take 1 tablet by mouth once daily. Take with food. - fluticasone (FLONASE) 50 mcg/actuation nasal spray Use 2 Sprays in each nostril once daily. - hydroCHLOROthiazide 12.5 mg capsule Take 1 capsule by mouth once daily. - ondansetron orally disintegrating (ZOFRAN ODT) 4 mg disintegrating tablet Take 1 tablet by mouth every 6 hours as needed for nausea/vomiting. - albuterol HFA (PROAIR HFA) 90 mcg/actuation inhaler Inhale 2 Puffs as instructed every 6 hours as needed. - Clobetasol Propionate (TEMOVATE) 0.05 % external solution MIX 1 BOTTLE INTO A 1LB TUB OF CERAVE AND APPLY 1X DAILY TO ANY AREAS OF RASH YOU CAN SEE OR FEEL. Problem List As Of Date 07/06/2024 Noted Resolved Essential hypertension [I10] 04/01/2005 Attention deficit disorder [F98.8] 04/27/2006 BACKACHE NOS [M54.9] 02/17/2007 03/25/2007 Allergic conjunctivitis [H10.10] 10/16/2014 Eczema, dyshidrotic [L30.1] 04/30/2015 Chronic bilateral low back pain with bilateral *01/09/2020 Obesity, Class III, BMI 40-49.9 (morbid obesity*05/19/2022 Encounter Status:Closed by SONA DURHAM on 07/06/24 [facility] CNOVon 06-23-2024 CNOV Office Visit (PODIWS ) MAYUR WORTHINGTON ([id number]) 1985 M Date Time Provider Department 06/23/24 8:00 AM SHIVAM CUNNINGHAM PODIWS During your visit today, we recorded the following information about you: Rosie De Luna RN 07/02/2024 7:55 AM Signed AMB ROOMING INTAKE FLOWSHEET DATA Pain Pain Level: 9 Pain Location: Toe Description: Burning, Sharp Duration Units: Days Frequency: Intermittent Intervention/Comfort measure: Relaxation, Reposition Comments: Started over a week ago. In last 2 days has been more painful and consistent Patient presents with: Left Great Toe - Established Patient, Follow Up, Ulcer Right Great Toe - Established Patient, Follow Up, Ulcer Patient presents for follow up of bilateral toe ulcer. States that the left toe has been causing him more pain and problems. Feels like a knot to toe that hurts every time he walks. ANA 06/06/24 Shivam Cunningham 07/02/2024 7:55 AM Signed FOLLOW UP PODIATRIC OFFICE VISIT Chief Complaint: This 38 year old who presents for follow up:b/l hallux ulceration Patient presents to clinic for follow-up b/l hallux ulceration. Patient is currently applying silvergel to the left great toe and neosporin to the right. He has a surgical shoe but is only wearing when he is not working. He now complains of pain to the top of left great toe. Feels that he has a bump. PAIN EVALUATION 06/23/2024 0802 Pain Level: 9 Pain Location: Toe Description: Burning;Sharp Duration Units: Days Frequency: Intermittent Intervention/Comfort measure: Relaxation;Reposition Comments: Started over a week ago. In last 2 days has been more painful and consistent Hemoglobin A1C Date Value Ref Range Status 05/10/2024 6.3 (H) 4.3 - 5.6 % Final Comment: [place] [employer] guidelines indicate that patients with HgbA1c in the range 5.7-6.4% are at increased risk for development of diabetes, and intervention by lifestyle modification may be beneficial. HgbA1c greater or equal to 6.5% is considered diagnostic of diabetes. PCP: Marvin Sheets MD PAST MEDICAL HISTORY Diagnosis Date ADD (attention deficit disorder) Essential hypertension Febrile convulsions (simple), unspecified PMH - PAST MEDICAL HISTORY OF Color Vision - Normal Routine or ritual circumcision Current Outpatient Medications Medication Sig semaglutide, weight loss, (WEGOVY) 0.5 mg/0.5 mL pen injector Inject 0.5 mL subcutaneously one time a week. lisdexamfetamine (VYVANSE) 70 mg capsule Take 1 capsule by mouth once daily for 30 days. Patient should start on June 23, 2024. lisinopril (ZESTRIL) 10 mg tablet Take 1 tablet by mouth once daily. lisdexamfetamine (VYVANSE) 70 mg capsule Take 1 capsule by mouth once daily for 30 days. traZODone (DESYREL) 50 mg tablet Take 1 tablet by mouth daily at bedtime. lisdexamfetamine (VYVANSE) 70 mg capsule Take 1 capsule by mouth once daily for 30 days. lisdexamfetamine (VYVANSE) 70 mg capsule Take 1 capsule by mouth once daily for 30 days. gel base no.41, bulk, (HYDROGEL) gel Apply to left great toe ulceration daily cyclobenzaprine (FLEXERIL) 10 mg tablet Take 1 tablet by mouth three times a day as needed for muscle spasm. olopatadine (PATANOL) 0.1 % ophthalmic solution USE 1-2 DROPS IN BOTH EYES TWICE DAILY sertraline (ZOLOFT) 100 mg tablet Take 1 tablet by mouth once daily. meloxicam (MOBIC) 15 mg tablet Take 1 tablet by mouth once daily. Take with food. fluticasone (FLONASE) 50 mcg/actuation nasal spray Use 2 Sprays in each nostril once daily. hydroCHLOROthiazide 12.5 mg capsule Take 1 capsule by mouth once daily. ondansetron orally disintegrating (ZOFRAN ODT) 4 mg disintegrating tablet Take 1 tablet by mouth every 6 hours as needed for nausea/vomiting. albuterol HFA (PROAIR HFA) 90 mcg/actuation inhaler Inhale 2 Puffs as instructed every 6 hours as needed. Clobetasol Propionate (TEMOVATE) 0.05 % external solution MIX 1 BOTTLE INTO A 1LB TUB OF CERAVE AND APPLY 1X DAILY TO ANY AREAS OF RASH YOU CAN SEE OR FEEL. No current facility-administered medications for this visit. ALLERGIES Allergen Reactions Elidel [Macrolide I* Itching Burning and severe itching Pollen Cough PAST SURGICAL HISTORY Procedure Laterality Date LX REPAIR RECURRENT VENTRAL HERNIA 04/2023 TONSILLECTOMY AND ADENOIDECTOMY TYMPANOSTOMY LOCAL/TOPICAL ANESTHESIA age 6 year Physical Exam: OBJECTIVE: Constitutional: Pt is a well developed 38 year old male who is alert, oriented, cooperative and in no apparent distress. Eyes: Following during examination. No redness or drainage. Respiratory: RR normal and nonlabored. Even breathing. No evidence of distress. Psychology: Patient is engaged during conversation. Normal affect and mood. Does not appear depressed or anxious. Vascular: DP and PT pulses are palpable b/l. CFT is (more content not included)... [facility] XR FOOT 3V AP/LAT/OBL LTon 1 1-22-2024 XR FOOT 3V AP/LAT/OBL LT * * *Final Repo rt* * * DATE OF EXAM: Jun 23 2024 9:48AM [id number] - XR FOOT 3V AP/LAT/OBL LT / PROCEDURE REASON: Ulcer of toe of left foot, limited to breakdown of skin (HCC) * * * * Physician Interpretation * * * * EXAMINATION: XR FOOT 3V AP/LAT/OBL LT CLINICAL HISTORY: Left toe ulcer Technique: XR FOOT 3V AP/LAT/OBL LT -- LEFT with 3 views on 3 images Comparison: X-ray left toes 07/19/2023 RESULT: No acute fracture or dislocation. No destructive osseous lesion. Joint spaces are maintained. Small plantar and posterior calcaneal spurs. IMPRESSION: No acute osseous abnormality Blind Aide: [facility] Transcribe Date/Time: Jun 23 2024 9:58A Dictated by : HARVEY STEIN MD This examination was interpreted and the report reviewed and electronically signed by: HRAVEY STEIN MD on Jun 23 2024 10:00AM EST [id number] [facility] XR Foot - left AP and Latera l and obliqueon 06-23-2024 IMPRESSION: No acute osseous abnormality Blind Aide: [facility] Transcribe Date/Time: Jun 23 2024 9:58A Dictated by : HARVEY STEIN MD This examination was interpreted and the report reviewed and electronically signed by: HARVEY STEIN MD on Jun 23 2024 10:00AM EST DIVISION OF RADIOLOGY * * *Final Report* * * DATE OF EXAM: Jun 23 2024 9:48AM [id number] - XR FOOT 3V AP/LAT/OBL LT / PROCEDURE REASON: Ulcer of toe of left foot, limited to breakdown of skin (HCC) * * * * Physician Interpretation * * * * EXAMINATION: XR FOOT 3V AP/LAT/OBL LT CLINICAL HISTORY: Left toe ulcer Technique: XR FOOT 3V AP/LAT/OBL LT -- LEFT with 3 views on 3 images Comparison: X-ray left toes 07/19/2023 RESULT: No acute fracture or dislocation. No destructive osseous lesion. Joint spaces are maintained. Small plantar and posterior calcaneal spurs. DIVISION OF RADIOLOGY Provider, [facility] - 06/23/2024 * * *Final Report* * * DATE OF EXAM: Jun 23 2024 9:48AM [id number] - XR FOOT 3V AP/LAT/OBL LT / PROCEDURE REASON: Ulcer of toe of left foot, limited to breakdown of skin (HCC) * * * * Physician Interpretation * * * * EXAMINATION: XR FOOT 3V AP/LAT/OBL LT CLINICAL HISTORY: Left toe ulcer Technique: XR FOOT 3V AP/LAT/OBL LT -- LEFT with 3 views on 3 images Comparison: X-ray left toes 07/19/2023 RESULT: No acute fracture or dislocation. No destructive osseous lesion. Joint spaces are maintained. Small plantar and posterior calcaneal spurs. IMPRESSION IMPRESSION: No acute osseous abnormality Blind Aide: LISA Transcribe Date/Time: Jun 23 2024 9:58A Dictated by : HARVEY STEIN MD This examination was interpreted and the report reviewed and electronically signed by: HARVEY STEIN MD on Jun 23 2024 10:00AM [facility] Radiology Study observation (narrative) [facility] XR Foot - left AP and Latera l and obliqueOrdered By: Ccf Provider on 06-23-2024 [facility] CNOVon 06-12-2024 CNOV Office Visit (FAMPWS ) MAYUR WORTHINGTON ([id number]) 1985 M Date Time Provider Department 06/12/24 8:40 AM CLEMENTE NEGRO FAMPWS During your visit today, we recorded the following information about you: Pulse Respiration Blood pressure Weight 85/minute 20/minute 136/80 180.1 kg Clemente Negro APRN.WALE 06/12/2024 9:14 AM Signed Chief Complaint Patient presents with: Follow Up: 6 month follow up HPI Mayurthom Worthington is a 38 year old male who presents here today for Chronic Medical Conditions. Patient is here for routine follow-up. He is overall doing well. Sleep has been good with trazodone. Depression is well-controlled with Zoloft. Denies any suicidal ideations. Would like to continue the current medication. Blood pressure is improved, controlled with hydrochlorothiazide. Denies any chest pain. Using Vyvanse for ADHD. Denies any side effects. Believes it is symptoms are well-controlled. Needs a refill sent to his new pharmacy [facility]. Patient has a history of lower back, knee pain. These symptoms have been well-controlled with meloxicam. He also states that his back pain and knee pain have been improving as he has been losing weight. Patient has a history of morbid obesity. He has lost about 20 pounds since March. He has been on Wegovy for approximately 8 weeks. Tolerating the medication. Minimal side effects. Trying to stay active at home. Has a good support system. Would like to stay on the current dose of 0.5 mg weekly. Would like to get the flu and COVID-vaccine today. Past medical history, appointments, medications, allergies reviewed. EXAM: BP 136/80 Pulse 85 Resp 20 Wt (!) 180.1 kg (397 lb) SpO2 96% BMI 50.97 kg/m? General Appearance: Well appearing, alert, in no acute distress, well-hydrated, well nourished. and Morbidly obese. Lungs: Lungs clear to auscultation. No wheezing, rhonchi, rales.. Heart: RRR without murmur, gallop, or rubs. No ectopy. ASSESSMENT/PLAN: 1. Attention deficit hyperactivity disorder (ADHD), predominantly hyperactive type - ICD9: 314.01, ICD10: F90.1 (primary diagnosis) -Stable, continue Vyvanse as prescribed. - LISDEXAMFETAMINE 70 MG CAPSULE 2. Hyperlipidemia, unspecified hyperlipidemia type - ICD9: 272.4, ICD10: E78.5 - Control undetermined, due for labs - Counseled on healthy diet and regular exercise 3. Prediabetes - ICD9: 790.29, ICD10: R73.03 -Continue with lifestyle changes, Wegovy. - SEMAGLUTIDE (WEIGHT LOSS) 0.5 MG/0.5 ML SUBCUTANEOUS PEN INJECTOR 4. Depression, unspecified depression type - ICD9: 311, ICD10: F32.A -Stable on Zoloft. Continue medication 5. Hypertension, essential - ICD9: 401.9, ICD10: I10 - Controlled - Continue current medications - Recommend home blood pressure monitoring, to bring results to next visit - Encouraged sodium restriction, DASH or Mediterranean diet - Recommend regular aerobic exercise 6. Encounter for immunization - ICD9: V03.89, ICD10: Z23 - INFLUENZA VACCINE, AGE 6MO-64YR, TRIVALENT (AFLURIA, FLULAVAL, FLUVIRIN, FLUZONE) - [employer] COVID-19 VACCINE AGE 12+ YR (COMIRNATY) 7. BMI 50.0-59.9, adult (HCC) - ICD9: V85.43, ICD10: Z68.43 Weight decreasing - Behavioral intervention and - Pharmacological intervention -Continue Wegovy. Discussed setting a weight loss goal. Discussed 15 pounds in 3 months would be reasonable. - SEMAGLUTIDE (WEIGHT LOSS) 0.5 MG/0.5 ML SUBCUTANEOUS PEN INJECTOR 8. Elevated hemoglobin A1c - ICD9: 790.29, ICD10: R73.09 -Will check labs in August. Continue Wegovy. - SEMAGLUTIDE (WEIGHT LOSS) 0.5 MG/0.5 ML SUBCUTANEOUS PEN INJECTOR 9. Difficulty sleeping - ICD9: 780.50, ICD10: G47.9 -Improved, continue trazodone Clemente Negro 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 RTO in 3 months, sooner if needed. This note was partly generated using [email or web address] voice recognition dictation and may contain some misspelled or inaccurate words missed on review. Allergies As of Date: 06/12/2024 Noted Allergy Reaction BETTYDEL (MACROLIDE IMMUNOSUPPRESSA*2015 9 - Itching Comments: Burning and severe itching POLLEN 06/14/2008 3 - Cough Date Reviewed: 06/12/2024 Reviewed by: Tamera Bar LPN - Fully Assessed Reason for Visit: Follow Up [171] Cmt: 6 month follow up Primary Visit Diagnosis:Attention deficit hyperactivity disorder (ADHD), predominantly hyperactive type [F90.1] Other Visit Diagnoses:Hyperlipidem ia, unspecified hyperlipidemia type [E78.5] Prediabetes [R73.03] Depression, unspecified depression type [F32.A] Hypertension, essential [I10] Encounter for immunization [Z23] BMI 50.0-59.9, adult (HCC) [Z68.43] Elevated hemoglobin A1c [R73.09] Difficulty sleeping [G47.9] Order(s):INFLUENZA VACCINE, AGE 6MO-64YR, TRIVALENT (AFLURIA, FLULAVAL, FLUVIRIN, FLUZONE) [[id number]] Order #: [id number] [employer] COVID-19 VACCINE AGE 12+ YR (COMIRNATY) [[id number]] Order #: [id number] (more content not included)... [facility] CNOVon 06-06-2024 CNOV Office Visit (PODIWS ) MAYUR WORTHINGTON ([id number]) 1985 M Date Time Provider Department 06/06/24 9:45 AM SHIVAM CUNNINGHAM PODIWS During your visit today, we recorded the following information about you: Shila Cao LPN 06/07/2024 7:41 AM Signed AMB ROOMING INTAKE FLOWSHEET DATA Pain Pain Level: 10 Pain Location: Toe Description: Sharp Duration Amount of Time: 1 Duration Units: Months Frequency: Intermittent Intervention/Comfort measure: Relaxation, Reposition Patient presents with: Right Great Toe - Established Patient, Ulcer Left Great Toe - Established Patient, Ulcer, Tumor/Mass, Pain Patient states that he tried to see if there was anything inside of left great toe ulcer 1 month ago by sterilizing a needle and sticking it in toe to see what came out. Patient states there was no purulent drainage and only blood came out. ALECIA Roman Matthew 06/07/2024 7:41 AM Signed FOLLOW UP PODIATRIC OFFICE VISIT Chief Complaint: This 38 year old who presents for follow up: Patient has been doing the following since last visit: b/l hallux ulceration Patient presetns to clinic for evaluation of b/l feet Complains of painful callus of b/l hallux Was seen in April and they were resolved Recently found out he is pre-diabetic. Wound of left hallux has now since returned. He complains of pain to left great toe PAIN EVALUATION 06/06/2024 0945 Pain Level: 10 Pain Location: Toe Description: Sharp Duration Amount of Time: 1 Duration Units: Months Frequency: Intermittent Intervention/Comfort measure: Relaxation;Reposition Hemoglobin A1C Date Value Ref Range Status 05/10/2024 6.3 (H) 4.3 - 5.6 % Final Comment: [place] [employer] guidelines indicate that patients with HgbA1c in the range 5.7-6.4% are at increased risk for development of diabetes, and intervention by lifestyle modification may be beneficial. HgbA1c greater or equal to 6.5% is considered diagnostic of diabetes. PCP: Marvin Sheets MD PAST MEDICAL HISTORY Diagnosis Date ADD (attention deficit disorder) Essential hypertension Febrile convulsions (simple), unspecified PMH - PAST MEDICAL HISTORY OF Color Vision - Normal Routine or ritual circumcision Current Outpatient Medications Medication Sig lisdexamfetamine (VYVANSE) 70 mg capsule Take 1 capsule by mouth once daily for 30 days. semaglutide, weight loss, (WEGOVY) 0.5 mg/0.5 mL pen injector Inject 0.5 mL subcutaneously one time a week. traZODone (DESYREL) 50 mg tablet Take 1 tablet by mouth daily at bedtime. [START ON 06/23/2024] lisdexamfetamine (VYVANSE) 70 mg capsule Take 1 capsule by mouth once daily for 30 days. Patient should start on June 23, 2024. gel base no.41, bulk, (HYDROGEL) gel Apply to left great toe ulceration daily cyclobenzaprine (FLEXERIL) 10 mg tablet Take 1 tablet by mouth three times a day as needed for muscle spasm. keTORolac (TORADOL) 10 mg tablet Take 1 tablet by mouth every 6 hours as needed. olopatadine (PATANOL) 0.1 % ophthalmic solution USE 1-2 DROPS IN BOTH EYES TWICE DAILY sertraline (ZOLOFT) 100 mg tablet Take 1 tablet by mouth once daily. meloxicam (MOBIC) 15 mg tablet Take 1 tablet by mouth once daily. Take with food. fluticasone (FLONASE) 50 mcg/actuation nasal spray Use 2 Sprays in each nostril once daily. hydroCHLOROthiazide 12.5 mg capsule Take 1 capsule by mouth once daily. lisinopril (ZESTRIL) 10 mg tablet Take 1 tablet by mouth once daily. ondansetron orally disintegrating (ZOFRAN ODT) 4 mg disintegrating tablet Take 1 tablet by mouth every 6 hours as needed for nausea/vomiting. albuterol HFA (PROAIR HFA) 90 mcg/actuation inhaler Inhale 2 Puffs as instructed every 6 hours as needed. Clobetasol Propionate (TEMOVATE) 0.05 % external solution MIX 1 BOTTLE INTO A 1LB TUB OF CERAVE AND APPLY 1X DAILY TO ANY AREAS OF RASH YOU CAN SEE OR FEEL. lisdexamfetamine (VYVANSE) 70 mg capsule Take 1 capsule by mouth once daily for 30 days. lisdexamfetamine (VYVANSE) 70 mg capsule Take 1 capsule by mouth once daily for 30 days. No current facility-administered medications for this visit. ALLERGIES Allergen Reactions Elidel [Macrolide I* Itching Burning and severe itching Pollen Cough PAST SURGICAL HISTORY Procedure Laterality Date LX REPAIR RECURRENT VENTRAL HERNIA 04/2023 TONSILLECTOMY AND ADENOIDECTOMY TYMPANOSTOMY LOCAL/TOPICAL ANESTHESIA age 6 year Physical Exam: OBJECTIVE: Constitutional: Pt is a well developed 38 year old male who is alert, oriented, cooperative and in no apparent distress. Eyes: Following during examination. No redness or drainage. Respiratory: RR normal and nonlabored. Even breathing. No evidence of distress. Psychology: Patient is engaged during conversation. Normal affect and mood. Does not appear depressed or anxious. NV (more content not included)... [facility] SURGICAL PATHOLOGYon CASE REPORT [facility] Comment on above: Order Comment: Speci men Type: TISSUE SPECIMENOrdering Facility: [facility] Address: [address] [place] [address] Result Comment: Surg [facility] Pathology Report Case: [id number] Authorizing Provider: Shivam Cunningham Collected: 06/06/2024 10:44 AM Ordering Location: Podiatry Received: 06/06/2024 04:07 PM Pathologist: Tejas Lofton MD, PhD Specimen: Skin, Curettings Performed By: #### S ####[facility] LABCLIA [id number] [place] [address] [place] CLINICAL HISTORY left hallux ulceration [facility] Comment on above: Order Comment: Speci men Type: TISSUE SPECIMENOrdering Facility: [facility] Address: [address] [place] [address] Performed By: #### S ####[facility] LABCLIA [id number] [place] [address] [place] FINAL DIAGNOSIS [facility] Comment on above: Order Comment: Speci men Type: TISSUE SPECIMENOrdering Facility: [facility] Address: [address] [place] [address] Result Comment: Tyrell singletary, left hallux, curettings: -Nail plate with intracorneal hemorrhage. AF/EK 06/07/24 Performed By: #### S ####[facility] LABCLIA [id number] [place] [address] [place] FINAL PERFORMING LAB Normal [facility] Comment on above: Order Comment: Speci men Type: TISSUE SPECIMENOrdering Facility: [facility] Address: [address] [place] [address] Result Comment: Diag nostic interpretation performed at [facility], [address] [place] [address] CLIA# [id number] Mending Carrier: Gerardo Farris M.D. Performed By: #### S ####[facility] LABCLIA [id number] [place] [address] [place] GROSS DESCRIPTION [facility] Comment on above: Order Comment: Speci men Type: TISSUE SPECIMENOrdering Facility: [facility] Address: [address] [place] [address] Result Comment: Tyrell singletary, Curettings Received in formalin is a 1.3 x 0.8 x 0.1 cm shave of skin. On the skin surface there is a 1.3 cm wilcox-brown and slightly elevated area. The specimen is bisected. Totally submitted in one cassette. SS June 06, 2024 10:31 PM Gross examination performed at [facility], [address] [place] [address] Performed By: #### S ####[facility] LABCLIA [id number] [id number] XR FOOT 3V AP/LAT/OBL BILon 06-06-2024 XR FOOT 3V AP/LAT/OBL STIVEN * * *Final Report* * * DATE OF EXAM: Jun 06 2024 11:31AM WRX [id number] - XR FOOT 3V AP/LAT/OBL STIVEN / PROCEDURE REASON: Ulcer of toe of left foot, limited to breakdown of skin (HCC) * * * * Physician Interpretation * * * * CLINICAL:..... Ulcer of toe of left foot, limited to breakdown of skin (HCC) TECHNIQUE: AP, lateral and oblique views of the right and left foot FINDINGS: There is no evidence of acute fracture, subluxation or dislocation seen. Degenerative changes seen at the talonavicular joint bilaterally. A degenerative cyst is seen in the RIGHT navicular bone. Bilateral plantar posterior calcaneal enthesophytes are present.. IMPRESSION: Degenerative change in the hindfoot.. Blind Aide: LISA Transcribe Date/Time: Jun 09 2024 9:26P Dictated by : JOHN ROWE MD This examination was interpreted and the report reviewed and electronically signed by: JOHN ROWE MD on Jun 09 2024 9:27PM EST [id number] [facility] CNPAna 05-12-2024 CNPN Telephone (FAMPWS) MAYUR WORTHINGTON ([id number]) 1985 M Date Time Provider Department 05/12/24 TIFFANIE GILLIS During your visit today, we recorded the following information about you: Tiffanie Gillis APRN.CNP 05/12/2024 12:25 PM Signed Please call the patient and let him know that I reviewed his lab results. Thyroid was normal. A1c was 6.3, this is considered prediabetes. Diabetes starts at 6.5. I know during office visit we discussed weight loss options. I can send in a prescription for either Ozempic or Moujaro to see if insurance will cover this due to the prediabetes. In the meantime I want him to work on eating a low-carb diet. Decrease the processed foods in the diet, increase lean protein, vegetables, get some form of exercise. I would like to repeat fasting labs in 3 months with office visit. If he is agreeable to starting medication please verify pharmacy. SOHAN Rivera Amanda, RN 05/12/2024 12:46 PM Signed Pt called and is notified of providers results and instructions. Sent information to Pts MyChart per Pt request. Pt voices understanding. Pt states he is ok with provider trying to send either medication in for him, and his pharmacy is [facility] in [place]. JOSE LUIS Oliver Ashley, APRN.CNP 05/12/2024 1:06 PM Signed The following approved medication requests have been transmitted electronically. Requested Prescriptions Signed Prescriptions Disp Refills tirzepatide (MOUNJARO) 2.5 mg/0.5 mL pen injector 2 mL 2 Sig: Inject 2.5 mg subcutaneously one time a week. Authorizing Provider: TIFFANIE GILLIS APRN.CNP Allergies As of Date: 05/12/2024 Noted Allergy Reaction ELIDEL (MACROLIDE IMMUNOSUPPRESSA*2015 9 - Itching Comments: Burning and severe itching POLLEN 06/14/2008 3 - Cough Date Reviewed: 05/10/2024 Reviewed by: Tabatha Palma LPN - Fully Assessed Reason for Visit: Results [95] Cmt: Labs Primary Visit Diagnosis:Prediabetes [R73.03] Other Visit Diagnoses:Hyperlipidem ia, unspecified hyperlipidemia type [E78.5] Morbid obesity with BMI of 50.0-59.9, adult (HCC) [E66.01, Z68.43] Order(s):COMPREHENSIVE METABOLIC PANEL [SQCMP] Order #: [id number] FUTURE HEMOGLOBIN A1C [HQGGE2I] Order #: [id number] FUTURE LIPID PANEL BASIC [SQLIPB] Order #: [id number] FUTURE tirzepatide (MOUNJARO) 2.5 mg/0.5 mL pen injectorInject 2.5 mg subcutaneously one time a week.Disp: 2 mLRfl: 2 Prescriptions as of 05/12/2024 - tirzepatide (MOUNJARO) 2.5 mg/0.5 mL pen injector Inject 2.5 mg subcutaneously one time a week. - traZODone (DESYREL) 50 mg tablet Take 1 tablet by mouth daily at bedtime. - lisdexamfetamine (VYVANSE) 70 mg capsule Take 1 capsule by mouth once daily for 30 days. - lisdexamfetamine (VYVANSE) 70 mg capsule Take 1 capsule by mouth once daily for 30 days. Patient should start on May 24, 2024. - lisdexamfetamine (VYVANSE) 70 mg capsule Take 1 capsule by mouth once daily for 30 days. Patient should start on June 23, 2024. - lisdexamfetamine (VYVANSE) 70 mg capsule Take 1 capsule by mouth once daily for 30 days. - gel base no.41, bulk, (HYDROGEL) gel Apply to left great toe ulceration daily - cyclobenzaprine (FLEXERIL) 10 mg tablet Take 1 tablet by mouth three times a day as needed for muscle spasm. - keTORolac (TORADOL) 10 mg tablet Take 1 tablet by mouth every 6 hours as needed. - olopatadine (PATANOL) 0.1 % ophthalmic solution USE 1-2 DROPS IN BOTH EYES TWICE DAILY - sertraline (ZOLOFT) 100 mg tablet Take 1 tablet by mouth once daily. - meloxicam (MOBIC) 15 mg tablet Take 1 tablet by mouth once daily. Take with food. - fluticasone (FLONASE) 50 mcg/actuation nasal spray Use 2 Sprays in each nostril once daily. - hydroCHLOROthiazide 12.5 mg capsule Take 1 capsule by mouth once daily. - lisinopril (ZESTRIL) 10 mg tablet Take 1 tablet by mouth once daily. - ondansetron orally disintegrating (ZOFRAN ODT) 4 mg disintegrating tablet Take 1 tablet by mouth every 6 hours as needed for nausea/vomiting. - albuterol HFA (PROAIR HFA) 90 mcg/actuation inhaler Inhale 2 Puffs as instructed every 6 hours as needed. - Clobetasol Propionate (TEMOVATE) 0.05 % external solution MIX 1 BOTTLE INTO A 1LB TUB OF CERAVE AND APPLY 1X DAILY TO ANY AREAS OF RASH YOU CAN SEE OR FEEL. Problem List As Of Date 05/12/2024 Noted Resolved Essential hypertension [I10] 04/01/2005 Attention deficit disorder [F98.8] 04/27/2006 BACKACHE NOS [M54.9] 02/17/2007 03/25/2007 Allergic conjunctivitis [H10.10] 10/16/2014 Eczema, dyshidrotic [L30.1] 04/30/2015 Chronic bilateral low back pain with bilateral *01/09/2020 Obesity, Class III, BMI 40-49.9 (morbid obesity*05/19/2022 Prescriptions ordered this encounter Disp Refills Start End TIRZEPATIDE 2.5 MG/0.5 ML SUBCUTANEO* 2 mL 2 05/12/2024 08/10/2024 Route: SUBCU (more content not included)... Normal [facility] Telephone (INTMWS) MAYUR WORTHINGTON ([id number]) 1985 M Date Time Provider Department 05/12/24 MARVIN SHEETS INTMandieWS During your visit today, we recorded the following information about you: Fela Valdez LPN 05/12/2024 1:09 PM Signed Electronic PA re'd and completed for carlos eduardo. Fela Valdez LPN 05/12/2024 4:02 PM Signed This was denied. Dear MAYUR WORTHINGTON: Request for coverage of Mounjaro (tirzepatide) has been denied. A request for prescription coverage for Mounjaro (tirzepatide) was recently submitted on your behalf. After careful consideration and review of the information sent to us, this request was not approved. We understand that this decision may not be what you and your doctor expected. This letter and the enclosed information will explain your options and help you decide what to do next. We reviewed all the supporting information sent to us and used your plan?s guidelines to make our decision. Why your request was denied: Your plan only covers this drug when it is used for certain health conditions. Covered use is for type 2 diabetes mellitus. Your plan does not cover the drug for your health condition that your doctor told us you have. We reviewed the information we had. Your request has been denied. Your doctor can send us any new or missing information for us to review. For this drug, you may have to meet other criteria. You can request the drug policy for more details. Tiffanie Gillis APRN.CNP 05/15/2024 8:27 AM Signed I sent in a prescription for Wegovy. Patient's BMI is 52.8 and he is prediabetic with an A1c of 6.3. Would be helpful if we can find out if any medication is covered to help prevent him from getting diabetes. The following approved medication requests have been transmitted electronically. Requested Prescriptions Signed Prescriptions Disp Refills semaglutide, weight loss, (WEGOVY) 0.5 mg/0.5 mL pen injector 2 mL 0 Sig: Inject 0.5 mL subcutaneously one time a week. Authorizing Provider: TIFFANIE GILLIS APRN.CNP Merillat, [place], [place] 05/15/2024 8:38 AM Signed PA for wegovy completed electronically JERRY Nichols Janice, LPN 05/15/2024 11:47 AM Signed Prior authorization approved Payer: [facility] [phone] Note from payer: Your PA request has been approved. Additional information will be provided in the approval communication. (Message [id number]) Approval Details Authorized from May 15, 2024 to December 11, 2024 Electronic appeal: Not supported View History Notes Time User Attachment Attachment received from payer. 05/15/2024 9:39 AM Cchs, Rx Priorauth In Document Medication Being Authorized semaglutide, weight loss, (WEGOVY) 0.5 mg/0.5 mL pen injector Inject 0.5 mL subcutaneously one time a week. Dispense: 2 mL Refills: 0 Start: 05/15/2024 End: 06/14/2024 Class: Normal Diagnoses: BMI 50.0-59.9, adult ([facility]); Prediabetes; Elevated hemoglobin A1c This order has been released to its destination. To be filled at: [facility] [address] [place] [phone] [facility] [phone] Fela Valdez LPN 05/15/2024 11:47 AM Signed Pt notified via my chart. Allergies As of Date: 05/12/2024 Noted Allergy Reaction ELIDEL (MACROLIDE IMMUNOSUPPRESSA*2015 9 - Itching Comments: Burning and severe itching POLLEN 06/14/2008 3 - Cough Date Reviewed: 05/10/2024 Reviewed by: Tbaatha Palma LPN - Fully Assessed Reason for Visit: Insurance Authorization [1693] Primary Visit Diagnosis:BMI 50.0-59.9, adult ([facility]) [Z68.43] Other Visit Diagnoses:Obesity, Class III, BMI 40-49.9 (morbid obesity) ([facility]) [E66.01] Prediabetes [R73.03] Elevated hemoglobin A1c [R73.09] Order(s):semaglutide, weight loss, (WEGOVY) 0.5 mg/0.5 mL pen injectorInject 0.5 mL subcutaneously one time a week.Disp: 2 mLRfl: 0 Prescriptions as of 05/15/2024 - semaglutide, weight loss, (WEGOVY) 0.5 mg/0.5 mL pen injector Inject 0.5 mL subcutaneously one time a week. - traZODone (DESYREL) 50 mg tablet Take 1 tablet by mouth daily at bedtime. - lisdexamfetamine (VYVANSE) 70 mg capsule Take 1 capsule by mouth once daily for 30 days. - lisdexamfetamine (VYVANSE) 70 mg capsule Take 1 capsule by mouth once daily for 30 days. Patient should start on May 24, 2024. - lisdexamfetamine (VYVANSE) 70 mg capsule Take 1 capsule by mouth once daily for 30 days. Patient should start on June 23, 2024. - lisdexamfetamine (VYVANSE) 70 mg capsule Take 1 capsule by mouth once daily for 30 days. - gel base no.41, bulk, (HYDROGEL) gel Apply to left great toe ulceration daily - cyclobenzaprine (FLEXERIL) 10 mg tablet Take 1 tablet by mouth three times a day as needed for muscle spasm. - keTORolac (TORADOL) 10 mg tablet Take 1 tablet by mouth every 6 hours as needed. - olopatad (more content not included)... Normal [facility] CNOVon 05-10-2024 [facility] Office Visit ([facility] ) MAYUR WORTHINGTON ([id number]) 1985 M Date Time Provider Department 05/10/24 8:40 AM [facility] During your visit today, we recorded the following information about you: Pulse Respiration Blood pressure Weight 92/minute 16/minute 150/98 186.7 kg Tiffanie Gillis APRN.CNP 05/10/2024 8:50 AM Signed This is a 38 year old male who presents today with: Patient presents with: Acute Visit: struggling to sleep at night HISTORY OF PRESENT ILLNESS: Mayur Worthington is a 38 year old male. Patient presents with: Acute Visit: struggling to sleep at night Here in the office to discuss sleep. Refers that he has been having difficulty falling and staying asleep for the past 1-2 months. Sleep is broken up, getting a couple hours per night. No nightmares. Has fallen out of bed twice. Does have snoring, has been told he may need a sleep study. Concerns if insurance will cover testing. ADHD, taking vyvanse 70 mg daily. Taking 12:00 pm. Working 11am-11pm or 3pm-11 pm. Tolerating medication. Mood: Taking Zoloft 100 mg daily. Symptoms well controlled. Denies any increased sadness, anxiety, or SI/HI. Weight: Going to the Gym 2-3 days per week. Not watching diet. Weight in January was 401 pounds, today's weight 411 pounds. Refers that he has noticed increasing weight gain with prednisone usage. Blood pressure elevated today, refers he has not taken his medication yet. PAST MEDICAL HISTORY: PAST MEDICAL HISTORY Diagnosis Date ADD (attention deficit disorder) Essential hypertension Febrile convulsions (simple), unspecified PMH - PAST MEDICAL HISTORY OF Color Vision - Normal Routine or ritual circumcision PAST SURGICAL HISTORY Procedure Laterality Date LX REPAIR RECURRENT VENTRAL HERNIA 04/2023 TONSILLECTOMY AND ADENOIDECTOMY TYMPANOSTOMY LOCAL/TOPICAL ANESTHESIA age 6 year ALLERGIES Elidel [Macrolide Immunosuppressant] and Pollen MEDICATIONS Current Outpatient Medications Medication Sig lisdexamfetamine (VYVANSE) 70 mg capsule Take 1 capsule by mouth once daily for 30 days. [START ON 05/24/2024] lisdexamfetamine (VYVANSE) 70 mg capsule Take 1 capsule by mouth once daily for 30 days. Patient should start on May 24, 2024. [START ON 06/23/2024] lisdexamfetamine (VYVANSE) 70 mg capsule Take 1 capsule by mouth once daily for 30 days. Patient should start on June 23, 2024. lisdexamfetamine (VYVANSE) 70 mg capsule Take 1 capsule by mouth once daily for 30 days. gel base no.41, bulk, (HYDROGEL) gel Apply to left great toe ulceration daily cyclobenzaprine (FLEXERIL) 10 mg tablet Take 1 tablet by mouth three times a day as needed for muscle spasm. keTORolac (TORADOL) 10 mg tablet Take 1 tablet by mouth every 6 hours as needed. olopatadine (PATANOL) 0.1 % ophthalmic solution USE 1-2 DROPS IN BOTH EYES TWICE DAILY sertraline (ZOLOFT) 100 mg tablet Take 1 tablet by mouth once daily. meloxicam (MOBIC) 15 mg tablet Take 1 tablet by mouth once daily. Take with food. fluticasone (FLONASE) 50 mcg/actuation nasal spray Use 2 Sprays in each nostril once daily. hydroCHLOROthiazide 12.5 mg capsule Take 1 capsule by mouth once daily. lisinopril (ZESTRIL) 10 mg tablet Take 1 tablet by mouth once daily. ondansetron orally disintegrating (ZOFRAN ODT) 4 mg disintegrating tablet Take 1 tablet by mouth every 6 hours as needed for nausea/vomiting. albuterol HFA (PROAIR HFA) 90 mcg/actuation inhaler Inhale 2 Puffs as instructed every 6 hours as needed. Clobetasol Propionate (TEMOVATE) 0.05 % external solution MIX 1 BOTTLE INTO A 1LB TUB OF CERAVE AND APPLY 1X DAILY TO ANY AREAS OF RASH YOU CAN SEE OR FEEL. No current facility-administered medications for this visit. FAMILY HISTORY Problem Relation Age of Onset other (heart failure [Other]) [facility] 49 Social History Tobacco Use Smoking status: Former Current packs/day: 1.00 Types: Cigarettes Smokeless tobacco: Former Types: Chew Vaping Use Vaping status: Former Substance Use Topics Alcohol use: No Drug use: Never REVIEW OF SYSTEMS GENERAL: + Weight Gain HEENT: Negative for frequent or significant headaches, No changes in hearing or vision. NECK: Negative for lumps, goiter, pain and significant neck swelling RESPIRATORY: Negative for cough, hemoptysis, wheezing, dyspnea or shortness of breath CARDIOVASCULAR: Negative for chest pain, leg swelling, orthopnea, or palpitations GI: No nausea, vomiting, or diarrhea/constipation. No hematochezia/melena. No heartburn or reflux symptoms. : No history of dysuria, frequency or incontinence MUSCULOSKELETAL: Negative for joint pain or swelling. SKIN: Negative for lesions, rash, and itching ENDOCRINE: Negative for cold or heat intolerance, polyuria, polydipsia and goiter NEURO: No history of headaches, syncope, paralysis, seizur (more content not included)... Normal [facility] Comprehensive metabolic 2000 panelon 05-10-2024 Albumin [Mass/Vol] 4.1 g/dL Normal 3.9-4.9 [facility] Comment on above: Order Comment: Speci men Type: BLOOD SPECIMENOrdering Facility: [facility] Address: [address] [place] [address] Performed By: #### 3 024-7, 15321-6, 3015-3 ####[facility] LABCLIA [id number] [place] [address] [place] ALP [Catalytic activity/Vol] 84 U/L Normal 38-113 [facility] Comment on above: Order Comment: Speci men Type: BLOOD SPECIMENOrdering Facility: [facility] Address: [address] [place] [address] Performed By: #### 3 024-7, 46809-3, 3015-3 ####[facility] LABCLIA [id number] [place] [address] [place] ALT [Catalytic activity/Vol] 43 U/L Normal 10-54 [facility] Comment on above: Order Comment: Speci men Type: BLOOD SPECIMENOrdering Facility: [facility] Address: [address] [place] [address] Performed By: #### 3 024-7, 00770-9, 3015-3 ####[facility] LABIA [id number] [place] [address] [place] Anion gap [Moles/Vol] 11 mmol/L Normal 8-15 [facility] Comment on above: Order Comment: Speci men Type: BLOOD SPECIMENOrdering Facility: [facility] Address: [address] [place] [address] Performed By: #### 3 024-7, 61275-3, 3015-3 ####[facility] LABIA [id number] [place] [address] [place] AST [Catalytic activity/Vol] 30 U/L Normal 14-40 [facility] Comment on above: Order Comment: Speci men Type: BLOOD SPECIMENOrdering Facility: [facility] Address: [address] [place] [address] Performed By: #### 3 024-7, 18864-6, 6-3 ####[facility] LABCLIA [id number] [place] [address] [place] Bilirubin [Mass/Vol] 0.5 mg/dL Normal 0.2-1.3 [facility] Comment on above: Order Comment: Speci men Type: BLOOD SPECIMENOrdering Facility: [facility] Address: [address] [place] [address] Performed By: #### 3 024-7, 74682-1, 6-3 ####[facility] LABCLIA [id number] [place] [address] [place] Calcium [Mass/Vol] 8.9 mg/dL Normal 8.5-10.2 [facility] Comment on above: Order Comment: Speci men Type: BLOOD SPECIMENOrdering Facility: [facility] Address: [address] [place] [address] Performed By: #### 3 024-7, 26317-2, 3015-3 ####[facility] LABCLIA [id number] [place] [address] [place] Chloride [Moles/Vol] 103 mmol/L Normal 98-107 [facility] Comment on above: Order Comment: Speci men Type: BLOOD SPECIMENOrdering Facility: [facility] Address: [address] [place] [address] Performed By: #### 3 024-7, 86485-8, 3015-3 ####[facility] LABCLIA [id number] [place] [id number] [place] CO2 [Moles/Vol] 28 mmol/L Normal 22-30 [facility] Comment on above: Order Comment: Speci men Type: BLOOD SPECIMENOrdering Facility: [facility] Address: [address] [place] [address] Performed By: #### 3 024-7, 74896-7, 6-3 ####[facility] LABIA [id number] [address] [address] [place] Creatinine [Mass/Vol] 0.82 mg/dL Normal 0.73-1.22 [facility] Comment on above: Order Comment: Boy foley Type: BLOOD SPECIMENOrdering Facility: [facility] Address: [address] [place] [address] Performed By: #### 3 024-7, 41264-8, 3015-3 ####[facility] LABIA [id number] [place] [address] [place] Creatinine and Glomerular filtration rate.predicted panel (S/P/Bld) 117 mL/min/1.73m??? Normal >=60 [facility] Comment on above: Order Comment: Boy foley Type: BLOOD SPECIMENOrdering Facility: [facility] Address: [address] [place] [address] Result Comment: Fawn mated Glomerular Filtration Rate (eGFR) is calculated using the 2020 CKD-EPI creatinine equation. This equation utilizes serum creatinine, sex, and age as parameters. The creatinine assay has traceable calibration to isotope dilution-mass spectrometry. Refer to KDIGO guidelines for clinical interpretation. In patients with unstable renal function, e.g. those with acute kidney injury, the eGFR may not accurately reflect actual GFR. Performed By: #### 3 024-7, 91101-5, 3015-3 ####[facility] LABIA [id number] [place] [id number] [place] Glucose [Mass/Vol] 147 mg/dL High 74-99 [facility] Comment on above: Order Comment: Speci alaina Type: BLOOD SPECIMENOrdering Facility: [facility] Address: [address] [place] [address] Result Comment: The [place] Diabetes Association (ADA) provides guidance for cutoff values for fasting glucose and random glucose. The ADA defines fasting as no caloric intake for at least 8 hours. Fasting plasma glucose results between 100 to 125 mg/dL indicate increased risk for diabetes (prediabetes). Fasting plasma glucose results greater than or equal to 126 mg/dL meet the criteria for diagnosis of diabetes. In the absence of unequivocal hyperglycemia, results should be confirmed by repeat testing. In a patient with classic symptoms of hyperglycemia or hyperglycemic crisis, random plasma glucose results greater than or equal to 200 mg/dL meet the criteria for diagnosis of diabetes. Reference: Standards of Medical Care in Diabetes 2016, [place] [employer] Association. Diabetes Care. 2016.39(Suppl 1). Performed By: #### 3 024-7, 41055-3, 3015-3 ####[facility] LABCLIA [id number] [place] [address] [place] Potassium [Moles/Vol] 3.8 mmol/L Normal 3.7-5.1 [facility] Comment on above: Order Comment: Speci men Type: BLOOD SPECIMENOrdering Facility: [facility] Address: [address] [place] [address] Performed By: #### 3 024-7, 17143-3, 3 ####[facility] LABCLIA [id number] [place] [address] [place] Protein [Mass/Vol] 6.9 g/dL Normal 6.3-8.0 [facility] Comment on above: Order Comment: Boy foley Type: BLOOD SPECIMENOrdering Facility: [facility] Address: [address] [place] [address] Performed By: #### 3 024-7, 52957-4, 3 ####[facility] LABCLIA [id number] [place] [address] [place] Sodium [Moles/Vol] 142 mmol/L Normal 136-144 [facility] Comment on above: Order Comment: Speci men Type: BLOOD SPECIMENOrdering Facility: [facility] Address: [address] [place] [address] Performed By: #### 3 024-7, 97061-4, 3015-3 ####[facility] LABCLIA [id number] [address] [address] [place] Urea nitrogen [Mass/Vol] 14 mg/dL Normal 9-24 [facility] Comment on above: Order Comment: Boy foley Type: BLOOD SPECIMENOrdering Facility: [facility] Address: [address] [place] [address] Performed By: #### 3 024-7, 37571-9, 3016-3 ####[facility] LABCLIA [id number] [place] [address] [place] HbA1c (Bld)on 05-10-2024 Average glucose Estimated from glycated hemoglobin (Bld) [Mass/Vol] 134 mg/dL Normal [facility] Comment on above: Order Comment: Byo foley Type: BLOOD SPECIMENOrdering Facility: [facility] Address: [address] [place] [address] Result Comment: eAG: (Estimated average glucose) is a calculated value from HgbA1c and is counter sales representative of the average blood glucose level in the last 2-3 month period. Performed By: #### 5 5454-3 ####[facility] LABCLIA [id number] [place] [address] [place] HbA1c (Bld) [Mass fraction] 6.3 % High 4.3-5.6 [facility] Comment on above: Order Comment: Boy foley Type: BLOOD SPECIMENOrdering Facility: [facility] Address: [address] [place] [address] Result Comment: [place] Diabetes Association guidelines indicate that patients with HgbA1c in the range 5.7-6.4% are at increased risk for development of diabetes, and intervention by lifestyle modification may be beneficial. HgbA1c greater or equal to 6.5% is considered diagnostic of diabetes. Performed By: #### 5 5454-3 ####[facility] LABCLIA [id number] [place] [address] [place] T4 Free SerPl-mCncon 024 Free T4 [Mass/Vol] 1.0 ng/dL Normal 0.9-1.7 [facility] Comment on above: Order Comment: Speci men Type: BLOOD SPECIMENOrdering Facility: [facility] Address: [address] [place] [address] Performed By: #### 3 024-7, 99545-1, 3016-3 ####[facility] LABCLIA [id number] [place] [address] [place] TSH SerPl-aCncon 05-10-2024 TSH Qn 2.190 m[IU]/L Normal 0.270-4.200 [facility] Comment on above: Order Comment: Speci men Type: BLOOD SPECIMENOrdering Facility: [facility] Address: [address] [place] [address] Performed By: #### 3 024-7, 07080-3, 3016-3 ####[facility] LABCLIA [id number] [address] [place] CNOVon 04-24-2024 [facility] Office Visit ([facility] ) MAYUR WORTHINGTON ([id number]) 1985 M Date Time Provider Department 04/24/24 8:15 AM SHIVAM CUNNINGHAM PODIWS During your visit today, we recorded the following information about you: Shila Cao LPN 04/24/2024 8:19 AM Signed AMB ROOMING INTAKE FLOWSHEET DATA Patient presents with: Left Foot - Follow Up, Ulcer Right Great Toe - Established Patient, ALECIA Tarango Matthew 04/24/2024 8:19 AM Signed FOLLOW UP PODIATRIC OFFICE VISIT Chief Complaint: This 38 year old who presents for follow up:left hallux ulceration. Patient presents to clinic for follow-up left hallux ulceration Patient is currently applying silver gel to left great toe. Feels it is helping States he has only filed the lesion down once with pummice stone. Still has some pain. No other complaints. PAIN EVALUATION No data found in the last 1 encounters. No results found for: HBA1C PCP: Marvin Sheets MD PAST MEDICAL HISTORY Diagnosis Date ADD (attention deficit disorder) Essential hypertension Febrile convulsions (simple), unspecified PMH - PAST MEDICAL HISTORY OF Color Vision - Normal Routine or ritual circumcision Current Outpatient Medications Medication Sig lisdexamfetamine (VYVANSE) 70 mg capsule Take 1 capsule by mouth once daily for 30 days. gel base no.41, bulk, (HYDROGEL) gel Apply to left great toe ulceration daily cyclobenzaprine (FLEXERIL) 10 mg tablet Take 1 tablet by mouth three times a day as needed for muscle spasm. keTORolac (TORADOL) 10 mg tablet Take 1 tablet by mouth every 6 hours as needed. olopatadine (PATANOL) 0.1 % ophthalmic solution USE 1-2 DROPS IN BOTH EYES TWICE DAILY sertraline (ZOLOFT) 100 mg tablet Take 1 tablet by mouth once daily. meloxicam (MOBIC) 15 mg tablet Take 1 tablet by mouth once daily. Take with food. fluticasone (FLONASE) 50 mcg/actuation nasal spray Use 2 Sprays in each nostril once daily. hydroCHLOROthiazide 12.5 mg capsule Take 1 capsule by mouth once daily. lisinopril (ZESTRIL) 10 mg tablet Take 1 tablet by mouth once daily. ondansetron orally disintegrating (ZOFRAN ODT) 4 mg disintegrating tablet Take 1 tablet by mouth every 6 hours as needed for nausea/vomiting. albuterol HFA (PROAIR HFA) 90 mcg/actuation inhaler Inhale 2 Puffs as instructed every 6 hours as needed. Clobetasol Propionate (TEMOVATE) 0.05 % external solution MIX 1 BOTTLE INTO A 1LB TUB OF CERAVE AND APPLY 1X DAILY TO ANY AREAS OF RASH YOU CAN SEE OR FEEL. No current facility-administered medications for this visit. ALLERGIES Allergen Reactions Elidel [Macrolide I* Itching Burning and severe itching Pollen Cough PAST SURGICAL HISTORY Procedure Laterality Date LX REPAIR RECURRENT VENTRAL HERNIA 04/2023 TONSILLECTOMY AND ADENOIDECTOMY TYMPANOSTOMY LOCAL/TOPICAL ANESTHESIA age 6 year Physical Exam: OBJECTIVE: Constitutional: Pt is a well developed 38 year old male who is alert, oriented, cooperative and in no apparent distress. Eyes: Following during examination. No redness or drainage. Respiratory: RR normal and nonlabored. Even breathing. No evidence of distress. Psychology: Patient is engaged during conversation. Normal affect and mood. Does not appear depressed or anxious. NVSI unchanged from previous visit. Dermatological: Nails 1-5 b/l are normal. Webspaces clean and dry 1-4 b/l. Skin appears well hydrated and supple. good color, texture, turgor. No open lesions present. Fissure is present to left heel and left hallux. Prior ulceration is now callus. No open wounds noted Healed blister of left 2nd toe Musculoskeletal/Orthop aedic: Patient has no pain to palpation of b/l feet ASSESSMENT: (L97.501) Skin ulcer of toe, limited to breakdown of skin, unspecified laterality (HCC) (primary encounter diagnosis) (L84) Callus of foot (S90.425A) Blister of toe of left foot, initial encounter PLAN: Discussed skin ulceration of left hallux. Now healed. Only callus which was reduced with 15 blade, tissue nippers and dremmel Patient at this time needs to keep his feet protected with lotion/cream and use of inserts to help provide offloading of b/l great toe If patient prefers, he can f/u in 1 month for callus debridement otherwise, follow-up prn. It is again important for patient to offload the lesion with inserts and perform debridement of callus with pummice stone periodically Healed blister of 2nd toe he was not aware of. Shivam Cunningham DPM Referring Provider: SHIVAM CUNNINGHAM [[id number]] Allergies As of Date: 04/24/2024 Noted Allergy Reaction SHANICE (MACROLIDE IMMUNOSUPPRESSA*2015 9 - Itching Comments: Burning and severe itching POLLEN 06/14/2008 3 - Cough Date Reviewed: 04/24/2024 Reviewed by: Shila Cao LPN - Fully Assessed Reason for Visit: Follow Up [171] Ulcer [114] Establish (more content not included)... [facility] 3 Viewson IMPRESSION: Soft tissue swelling of the first digit. Blind Aide: LISA Transcribe Date/Time: Jul 23 2023 4:52P Dictated by : AUDREY NEAL MD This examination was interpreted and the report reviewed and electronically signed by: AUDREY NEAL MD on Jul 23 2023 4:53PM [facility] DIV[facility] OF RADIOLOGY * * *Final Report* * * DATE OF EXAM: Jul 19 2023 12:44PM WOX [id number] - XR TOE 3V AP/LAT/OBL LT / PROCEDURE REASON: multiple diagnoses * * * * Physician Interpretation * * * * EXAM TITLE: XR TOE 3V AP/LAT/OBL LT EXAM DATE/TIME: 07/19/2023 12:44 PM COMPARISON: None CLINICAL INDICATION/HISTORY: Infection. Rule out foreign body. TECHNIQUE: AP, lateral and oblique views of the first digit of the left foot are presented. FINDINGS: No acute fractures or subluxations are noted. The joint spaces are well preserved. The mineralization of the bones is normal. There is soft tissue swelling along the distal first digit. No visible radiopaque foreign body seen. DIVISION OF RADIOLOGY Provider, [facility] - 07/23/2023 * * *Final Report* * * DATE OF EXAM: Jul 19 2023 12:44PM WOX [id number] - XR TOE 3V AP/LAT/OBL LT / PROCEDURE REASON: multiple diagnoses * * * * Physician Interpretation * * * * EXAM TITLE: XR TOE 3V AP/LAT/OBL LT EXAM DATE/TIME: 07/19/2023 12:44 PM COMPARISON: None CLINICAL INDICATION/HISTORY: Infection. Rule out foreign body. TECHNIQUE: AP, lateral and oblique views of the first digit of the left foot are presented. FINDINGS: No acute fractures or subluxations are noted. The joint spaces are well preserved. The mineralization of the bones is normal. There is soft tissue swelling along the distal first digit. No visible radiopaque foreign body seen. IMPRESSION IMPRESSION: Soft tissue swelling of the first digit. Blind Aide: PSCB Transcribe Date/Time: Jul 23 2023 4:52P Dictated by : AUDREY NEAL MD This examination was interpreted and the report reviewed and electronically signed by: AUDREY NEAL MD on Jul 23 2023 4:53PM EST [facility] XR Toes - left 3 ViewsOrdere d By: [facility] Provider on 07-23-2023 [facility] XR Toes - left 3 Viewson Radiology Study observation (narrative) [facility] Absolute lymphocyte countOrd ered By: Gabe Badillo on 04-26-2023 Lymphocytes Auto (Unsp spec) [#/Vol] 1.44 10*3/uL 0.83-4.51 [facility] Basophil percentageOrdered B y: Gabe Badillo on 04-26-2023 Basophils/100 WBC (Bld) 0.5 % 0-1 [facility] Chloride [Moles/Vol] 107 mmol/L 98-107 [facility] Eosinophils/100 WBC (Bld) 2.5 % 0-5 [facility] Glucose [Mass/Vol] 102 mg/dL 74-106 [facility] Comment on above: Fasting Glucose resu lt from 100 to 125 mg/dL suggests IMPAIRED HOMEOSTASIS per A.D.A. criteria. Neutrophils (Bld) [#/Vol] 9.8 10*3/uL 2.0-7.7 [facility] Neutrophils/100 WBC (Bld) 77.4 % 47-70 [facility] Potassium [Moles/Vol] 3.4 mmol/L 3.5-5.1 [facility] Sodium [Moles/Vol] 141 mmol/L 136-145 [facility] WBC (Bld) [#/Vol] 12.6 10*3/uL 4.4-11.0 [facility] Blood erythrocytes count (nu mber/volume)Ordered By: Gabe Badillo on 04-26-2023 RBC (Bld) [#/Vol] 4.86 10*6/uL 4.6-6.2 [facility] Blood hemoglobin measurement (mass/volume)Ordered By: Gabe Badillo on 04-26-2023 Hemoglobin (Bld) [Mass/Vol] 12.7 g/dL 13.0-16.5 [facility] Blood lymphocytes/100 leukoc ytesOrdered By: Gabe Badillo on 04-26-2023 Lymphocytes/100 WBC (Bld) 11.4 % 19-41 [facility] Blood monocytes/100 leukocyt esOrdered By: Gabe Badillo on 04-26-2023 Monocytes/100 WBC (Bld) 6.7 % 0-10 [facility] Blood platelet mean volumeOr dered By: Gabe Badillo on 04-26-2023 Platelet mean volume (Bld) [Entitic vol] 10.6 fL 6.2-12.0 [facility] Determination of erythrocyte mean corpuscular volume (MCV)Ordered By: Gabe Badillo on 04-26-2023 MCV (RBC) [Entitic vol] 82.1 fL 80-94 [facility] Hematocrit Auto (Bld) [Volum e fraction]Ordered By: Gabe Badillo on 04-26-2023 Hematocrit (Bld) [Volume fraction] 39.9 % 40-54 [facility] Laboratory - Chemistry and C hemistry - challengeOrdered By: Gabe Badillo on 04-26-2023 CO2 [Moles/Vol] 30.0 mmol/L 21.0-32.0 [facility] Magnesium [Mass/Vol] 2.3 mg/dL 1.6-2.6 [facility] Urea nitrogen/Creatinine [Mass ratio] 12.9 mg/mg 10-20 [facility] - Hematology and Cell countsOrdered By: Gabe Badillo on 04-26-2023 Erythrocyte distribution width (RBC) [Entitic vol] 44.5 fL 35.1-43.9 [facility] Erythrocyte distribution width (RBC) [Ratio] 14.8 % 11.6-14.6 [facility] Immature granulocytes/100 WBC (Bld) 1.500 % 0.0-0.9 [facility] Comment on above: IG% - Immature Granu locytes (promyelocytes, myelocytes and metamyelocytes) > 1% indicates that a LEFT SHIFT is Present. MCH (RBC) [Entitic mass] 26.1 pg 27.0-32.0 [facility] Nucleated RBC/100 WBC (Bld) [Ratio] 0 % 0-5 [facility] MCHC Auto (RBC) [Mass/Vol]Or dered By: Gabe Badillo on 04-26-2023 MCHC (RBC) [Mass/Vol] 31.8 g/dL 32-36 [facility] No Panel InformationOrdered By: Gabe Badillo on 04-26-2023 Estimated Creatinine Clearance Calc 141.03 ml/min [facility] Estimated GFR (MDRD) Amer 131 mL/min >60 [facility] Comment on above: GFR Calc Estimated GFR (MDRD) Non-Af Amer 108 mL/min >60 [facility] Comment on above: Non- GFR Calc Platelets bldOrdered By: Wagner Badillo on 04-26-2023 Platelets (Bld) [#/Vol] 201 10*3/uL 150-450 [facility] Serum or plasma calcium malini urement (mass/volume)Ordered By: Gabe Badillo on 04-26-2023 Calcium [Mass/Vol] 8.1 mg/dL 8.5-10.1 [facility] Serum or plasma creatinine m easurement (mass/volume)Ordered By: Gabe Badillo on 04-26-2023 Creatinine [Mass/Vol] 0.85 mg/dL 0.70-1.30 [facility] Comment on above: The validity of the calculated GFR & GFRAA in patients over 70 years has not been determined. Clinical correlation is essential. Serum or plasma urea nitroge n measurement (mass/volume)Ordered By: Gabe Badillo on 04-26-2023 Urea nitrogen [Mass/Vol] 11 mg/dL 7-18 [facility] Thin prep Papanicolaou smear with manual screeningOrdered By: Gabe Badillo on 04-26-2023 Thin prep Papanicolaou smear with manual screening 4 5-15 [facility] Basophil percentageOrdered B y: Gabe Badillo on 04-25-2023 Basophil percentage 3.9 mg/dL 2.5-4.9 [facility] Blood platelet adequacy dete ction by light microscopyOrdered By: Tejas Genao on 04-24-2023 Platelets LM Ql (Bld) ADEQUATE ADEQ [facility] Blood manual differential co mment interpretation (narrative result)Ordered By: Rosie Lama on 04-23-2023 Manual differential comment Tim (Bld) [Interp] SCANNED [facility] Basophil percentageOrdered B y: Everton Faulkner on 04-22-2023 Lactate [Moles/Vol] 1.2 mmol/L 0.4-2.0 [facility] Laboratory - Hematology and Cell countsOrdered By: Gabe Badillo on 04-22-2023 Anisocytosis Ql (Bld) 1+ [facility] Basophil percentageOrdered B y: Rj Lynn on 04-21-2023 Bilirubin [Mass/Vol] 1.10 mg/dL 0.20-1.00 [facility] Comment on above: For patients on eltr ombopag therapy, use of Dimension [place] TBIL is not recommended. Protein [Mass/Vol] 8.0 g/dL 6.4-8.2 [facility] Laboratory - Chemistry and C hemistry - challengeOrdered By: Rj Lynn on 04-21-2023 ALP [Catalytic activity/Vol] 75 U/L 45-117 [facility] ALT [Catalytic activity/Vol] 44 U/L 16-61 [facility] Globulin (S) [Mass/Vol] 4.4 g/dL 2.2-4.2 [facility] Lipase [Catalytic activity/Vol] 59 U/L 13-75 [facility] Comment on above: Please note:LIPASE r evised reference range effective 22. New Lipase methodology. Expected to produce lower values than the previous assay method. NEW Reference Range: 13 - 75 U/L Serum or plasma albumin malini urement (mass/volume)Ordered By: Rj Lynn on 04-21-2023 Albumin [Mass/Vol] 3.6 g/dL 3.2-5.0 [facility] Serum or plasma albumin/glob ulin mass ratioOrdered By: Rj Lynn on 04-21-2023 Albumin/Globulin [Mass ratio] 0.8 {ratio} 0.9-2.4 [facility] Thin prep Papanicolaou smear with manual screeningOrdered By: Rj Lynn on 04-21-2023 Thin prep Papanicolaou smear with manual screening 16 U/L 15-37 [facility] Absolute lymphocyte countOrd ered By: Rosie Lama on 04-19-2023 Lymphocytes Auto (Unsp spec) [#/Vol] 0.88 10*3/uL 0.83-4.51 [facility] Basophil percentageOrdered B y: Rosie Lama on 04-19-2023 Basophils/100 WBC (Bld) 0.4 % 0-1 [facility] Chloride [Moles/Vol] 107 mmol/L 98-107 [facility] Eosinophils/100 WBC (Bld) 3.1 % 0-5 [facility] Glucose [Mass/Vol] 123 mg/dL 74-106 [facility] Comment on above: Fasting Glucose resu lt from 100 to 125 mg/dL suggests IMPAIRED HOMEOSTASIS per A.D.A. criteria. Neutrophils (Bld) [#/Vol] 6.8 10*3/uL 2.0-7.7 [facility] Neutrophils/100 WBC (Bld) 72.2 % 47-70 [facility] Potassium [Moles/Vol] 3.3 mmol/L 3.5-5.1 [facility] Sodium [Moles/Vol] 141 mmol/L 136-145 [facility] WBC (Bld) [#/Vol] 9.4 10*3/uL 4.4-11.0 [facility] Blood erythrocytes count (nu mber/volume)Ordered By: Rosie Lama on 04-19-2023 RBC (Bld) [#/Vol] 5.63 10*6/uL 4.6-6.2 [facility] Blood hemoglobin measurement (mass/volume)Ordered By: Rosie Lama on 04-19-2023 Hemoglobin (Bld) [Mass/Vol] 14.9 g/dL 13.0-16.5 [facility] Blood lymphocytes/100 leukoc ytesOrdered By: Rosie Lama on 04-19-2023 Lymphocytes/100 WBC (Bld) 9.4 % 19-41 [facility] Blood monocytes/100 leukocyt esOrdered By: Rosie Lama on 04-19-2023 Monocytes/100 WBC (Bld) 14.7 % 0-10 [facility] Blood platelet mean volumeOr dered By: Rosie Lama on 04-19-2023 Platelet mean volume (Bld) [Entitic vol] 9.6 fL 6.2-12.0 [facility] Determination of erythrocyte mean corpuscular volume (MCV)Ordered By: Rosie Lama on 04-19-2023 MCV (RBC) [Entitic vol] 81.2 fL 80-94 [facility] Hematocrit Auto (Bld) [Volum e fraction]Ordered By: Rosie Lama on 04-19-2023 Hematocrit (Bld) [Volume fraction] 45.7 % 40-54 [facility] - Chemistry and C hemistry - challengeOrdered By: Rosie Lama on 04-19-2023 CO2 [Moles/Vol] 28.0 mmol/L 21.0-32.0 [facility] Urea nitrogen/Creatinine [Mass ratio] 28.3 mg/mg 10-20 [facility] - Hematology and Cell countsOrdered By: Rosie Lama on 04-19-2023 Erythrocyte distribution width (RBC) [Entitic vol] 45.7 fL 35.1-43.9 [facility] Erythrocyte distribution width (RBC) [Ratio] 15.5 % 11.6-14.6 [facility] Immature granulocytes/100 WBC (Bld) 0.200 % 0.0-0.9 [facility] Comment on above: IG% - Immature Granu locytes (promyelocytes, myelocytes and metamyelocytes) > 1% indicates that a LEFT SHIFT is Present. MCH (RBC) [Entitic mass] 26.5 pg 27.0-32.0 [facility] Nucleated RBC/100 WBC (Bld) [Ratio] 0 % 0-5 [facility] MCHC Auto (RBC) [Mass/Vol]Or dered By: Rosie Lama on 04-19-2023 MCHC (RBC) [Mass/Vol] 32.6 g/dL 32-36 [facility] Comment on above: Delta: 30.7 on 04/18 No Panel InformationOrdered By: Rosie Lama on 04-19-2023 Estimated Creatinine Clearance Calc 168.84 ml/min [facility] Estimated GFR (MDRD) Amer 163 mL/min >60 [facility] Comment on above: GFR Calc Estimated GFR (MDRD) Non-Af Amer 135 mL/min >60 [facility] Comment on above: Non- GFR Calc Platelets bldOrdered By: Marisa Lama on 04-19-2023 Platelets (Bld) [#/Vol] 153 10*3/uL 150-450 [facility] Serum or plasma calcium malini urement (mass/volume)Ordered By: Rosie Lama on 04-19-2023 Calcium [Mass/Vol] 8.0 mg/dL 8.5-10.1 [facility] Serum or plasma creatinine m easurement (mass/volume)Ordered By: Rosie Lama on 04-19-2023 Creatinine [Mass/Vol] 0.71 mg/dL 0.70-1.30 [facility] Comment on above: The validity of the calculated GFR & GFRAA in patients over 70 years has not been determined. Clinical correlation is essential. Serum or plasma urea nitroge n measurement (mass/volume)Ordered By: Rosie Lama on 04-19-2023 Urea nitrogen [Mass/Vol] 20 mg/dL - [facility] Thin prep Papanicolaou smear with manual screeningOrdered By: Rosie Lama on 04-19-2023 Thin prep Papanicolaou smear with manual screening 6 - [facility] Absolute lymphocyte countOrd ered By: Radhika Soria on 04-17-2023 Lymphocytes Auto (Unsp spec) [#/Vol] 0.70 10*3/uL 0.83-4.51 [facility] Basophil percentageOrdered B y: Radhika Soria on 04-17-2023 Basophil percentage 0-5 SEEN /hpf 0-5 [facility] Basophils/100 WBC (Bld) 0.3 % 0-1 [facility] Bilirubin [Mass/Vol] 1.20 mg/dL 0.20-1.00 [facility] Comment on above: For patients on eltr ombopag therapy, use of Dimension [place] TBIL is not recommended. Chloride [Moles/Vol] 101 mmol/L 98-107 [facility] Eosinophils/100 WBC (Bld) 0.5 % 0-5 [facility] Glucose [Mass/Vol] 142 mg/dL 74-106 [facility] Comment on above: Fasting Glucose resu lt greater than or equal to 126 mg/dL suggests DIABETES MELLITUS per A.D.A. criteria. Lactate [Moles/Vol] 1.4 mmol/L 0.4-2.0 [facility] Neutrophils (Bld) [#/Vol] 10.6 10*3/uL 2.0-7.7 [facility] Neutrophils/100 WBC (Bld) 82.5 % 47-70 [facility] Potassium [Moles/Vol] 3.5 mmol/L 3.5-5.1 [facility] Protein [Mass/Vol] 8.2 g/dL 6.4-8.2 [facility] Sodium [Moles/Vol] 137 mmol/L 136-145 [facility] WBC (Bld) [#/Vol] 12.8 10*3/uL 4.4-11.0 [facility] Bilirubin Test strip Ql (U)O rdered By: Radhika Soria on 04-17-2023 Bilirubin Ql (U) 3 mg/dL Negative [facility] Comment on above: COLOR OF URINE MAY A FFECT DIPSTICK RESULTS. Blood erythrocytes count (nu mber/volume)Ordered By: Radhika Soria on 04-17-2023 RBC (Bld) [#/Vol] 6.48 10*6/uL 4.6-6.2 [facility] Blood hemoglobin measurement (mass/volume)Ordered By: Radhika Soria on 04-17-2023 Hemoglobin (Bld) [Mass/Vol] 17.3 g/dL 13.0-16.5 [facility] Blood lymphocytes/100 leukoc ytesOrdered By: Radhika Sroia on 04-17-2023 Lymphocytes/100 WBC (Bld) 5.5 % 19-41 [facility] Blood monocytes/100 leukocyt esOrdered By: Radhika Soria on 04-17-2023 Monocytes/100 WBC (Bld) 10.9 % 0-10 [facility] Blood platelet mean volumeOr dered By: Radhika Soria on 04-17-2023 Platelet mean volume (Bld) [Entitic vol] 10.2 fL 6.2-12.0 [facility] Determination of erythrocyte mean corpuscular volume (MCV)Ordered By: Radhika Soria on 04-17-2023 MCV (RBC) [Entitic vol] 80.1 fL 80-94 [facility] Hematocrit Auto (Bld) [Volum e fraction]Ordered By: Radhika Soria on 04-17-2023 Hematocrit (Bld) [Volume fraction] 51.9 % 40-54 [facility] Ketones Test strip Ql (U)Ord ered By: Radhika Soria on 04-17-2023 Ketones Ql (U) 5 mg/dl Negative [facility] Laboratory - Chemistry and C hemistry - challengeOrdered By: Radhika Soria on 04-17-2023 ALP [Catalytic activity/Vol] 103 U/L 45-117 [facility] ALT [Catalytic activity/Vol] 86 U/L 16-61 [facility] CO2 [Moles/Vol] 29.0 mmol/L 21.0-32.0 [facility] Globulin (S) [Mass/Vol] 4.0 g/dL 2.2-4.2 [facility] Lipase [Catalytic activity/Vol] 27 U/L 13-75 [facility] Comment on above: Please note:LIPASE r evised reference range effective 22. New Lipase methodology. Expected to produce lower values than the previous assay method. NEW Reference Range: 13 - 75 U/L Urea nitrogen/Creatinine [Mass ratio] 23.5 mg/mg 10-20 [facility] Laboratory - Hematology and Cell countsOrdered By: Radhika Soria on 04-17-2023 Erythrocyte distribution width (RBC) [Entitic vol] 45.0 fL 35.1-43.9 [facility] Erythrocyte distribution width (RBC) [Ratio] 16.3 % 11.6-14.6 [facility] Immature granulocytes/100 WBC (Bld) 0.300 % 0.0-0.9 [facility] Comment on above: IG% - Immature Granu locytes (promyelocytes, myelocytes and metamyelocytes) > 1% indicates that a LEFT SHIFT is Present. MCH (RBC) [Entitic mass] 26.7 pg 27.0-32.0 [facility] Nucleated RBC/100 WBC (Bld) [Ratio] 0 % 0-5 [facility] MCHC Auto (RBC) [Mass/Vol]Or dered By: Radhika Soria on 04-17-2023 MCHC (RBC) [Mass/Vol] 33.3 g/dL 32-36 [facility] Mucus LM Ql (Urine sed)Order ed By: Radhika Soria on 04-17-2023 Mucus Ql (Urine sed) 0 SEEN /hpf [facility] Nitrite Test strip Ql (U)Ord ered By: Radhika Sorai on 04-17-2023 Nitrite Ql (U) Negative Negative [facility] No Panel InformationOrdered By: Radhika Soria on 04-17-2023 Estimated Creatinine Clearance Calc 104.24 ml/min [facility] Estimated GFR (MDRD) Amer 93 mL/min >60 [facility] Comment on above: GFR Calc Estimated GFR (MDRD) Non-Af Amer 77 mL/min >60 [facility] Comment on above: Non- GFR Calc Platelets bldOrdered By: Ailyn Soria on 04-17-2023 Platelets (Bld) [#/Vol] 202 10*3/uL 150-450 [facility] Protein Test strip Ql (U)Ord ered By: Radhika Soria on 04-17-2023 Protein Ql (U) 30 mg/dl Negative [facility] Serum or plasma albumin malini urement (mass/volume)Ordered By: Radhika Soria on 04-17-2023 Albumin [Mass/Vol] 4.2 g/dL 3.2-5.0 [facility] Serum or plasma albumin/glob ulin mass ratioOrdered By: Radhika Soria on 04-17-2023 Albumin/Globulin [Mass ratio] 1.0 {ratio} 0.9-2.4 [facility] Serum or plasma calcium malini urement (mass/volume)Ordered By: Radhika Soria on 04-17-2023 Calcium [Mass/Vol] 9.4 mg/dL 8.5-10.1 [facility] Serum or plasma creatinine m easurement (mass/volume)Ordered By: Radhika Soria on 04-17-2023 Creatinine [Mass/Vol] 1.15 mg/dL 0.70-1.30 [facility] Comment on above: The validity of the calculated GFR & GFRAA in patients over 70 years has not been determined. Clinical correlation is essential. Serum or plasma urea nitroge n measurement (mass/volume)Ordered By: Radhika Soria on 04-17-2023 Urea nitrogen [Mass/Vol] 27 mg/dL 7-18 [facility] Squamous epithelial cells de tection in urine sediment by light microscopyOrdered By: Radhika Soria on 04-17-2023 Epithelial cells.squamous LM Ql (Urine sed) 0-5 SEEN /hpf 0-5 [facility] Thin prep Papanicolaou smear with manual screeningOrdered By: Radhika Soria on 04-17-2023 Thin prep Papanicolaou smear with manual screening 41 U/L 15-37 [facility] Thin prep Papanicolaou smear with manual screening 7 5-15 [facility] Urine blood detectionOrdered By: Radhika Soria on 04-17-2023 RBC Ql (U) 10 /ul Negative [facility] RBC Ql (U) 0-5 SEEN /hpf 0-5 [facility] Urine clarityOrdered By: Ailyn Soria on 04-17-2023 Clarity (U) Sl. Cloudy Clear [facility] Urine color determinationOrd ered By: Radhika Soria on 04-17-2023 Color (U) Chelita Yellow [facility] Urine glucose detectionOrder ed By: Radhika Soria on 04-17-2023 Glucose Ql (U) Normal mg/dl Normal [facility] Urine leukocyte esterase det ection by dipstickOrdered By: Radhika Soria on 04-17-2023 Leukocyte esterase Test strip Ql (U) 25 /ul Negative [facility] Urine pHOrdered By: Radhika kelley on 04-17-2023 pH (U) 5.0 [pH] 5.0 - 8.0 [facility] Urine sediment bacteria coun t by microscopy (number/high power field)Ordered By: Radhika Soria on 04-17-2023 Bacteria LM.HPF (Urine sed) [#/Area] 0 /[HPF] None Seen [facility] Urine specific gravity measu rementOrdered By: Radhika Soria on 04-17-2023 Specific gravity (U) [Rel density] 1.015 1.002-1.030 [facility] Urobilinogen Auto test strip Ql (U)Ordered By: Radhika Soria on 04-17-2023 Urobilinogen Ql (U) 4 mg/dl Normal [facility] STREP A MOLECULAR (POC)on Procedural Control Valid [facility] Strep A (POCT) Negative Negative [facility] Influenza virus A and B RNA and SARS-CoV-2 (COVID-19) N gene panel BUNNY+probe (Resp)on 08-10-2022 FLUAV RNA BUNNY+probe Ql (Unsp spec) Negative Negative for Influenza A by RT-PCR [facility] FLUBV RNA BUNNY+probe Ql (Unsp spec) Negative Negative for Influenza B by RT-PCR [facility] SARS-CoV-2 (COVID-19) RNA BUNNY+probe Ql (Resp) SARS-CoV-2 (Agent of COVID-19) Detected by RT-PCR or equivalent method. Abnormal Not Detected [facility] XR CHEST 2V FRONTAL/LATon [facility] XR Chest PA and Lateralon IMPRESSION: No acute radiographic abnormality. Blind Aide: Casinity Transcribe Date/Time: Aug 10 2022 10:24A Dictated by : AUDREY NEAL MD This examination was interpreted and the report reviewed and electronically signed by: AUDREY NEAL MD on Aug 10 2022 10:24AM [facility] DIVISION OF RADIOLOGY * * *Final Report* * * DATE OF EXAM: Aug 10 2022 10:23AM WOX 5291 - XR CHEST 2V FRONTAL/LAT / PROCEDURE REASON: Acute cough * * * * Physician Interpretation * * * * EXAMINATION: CHEST RADIOGRAPH (2 VIEW FRONTAL & LATERAL) CLINICAL HISTORY: Acute cough MQ: XC2_6 EXAM DATE/TIME: 08/10/2022 10:23 AM COMPARISON: No relevant prior studies available. RESULT: Lines, tubes, and devices: None. Lungs and pleura: No consolidation. No lung mass. No pleural effusion. No pneumothorax. Cardiomediastinal silhouette: Normal cardiomediastinal silhouette. Bones and soft tissues: Mild degenerative changes seen in the spine. DIVISION OF RADIOLOGY Provider, [facility] - 08/10/2022 * * *Final Report* * * DATE OF EXAM: Aug 10 2022 10:23AM WOX 5291 - XR CHEST 2V FRONTAL/LAT / PROCEDURE REASON: Acute cough * * * * Physician Interpretation * * * * EXAMINATION: CHEST RADIOGRAPH (2 VIEW FRONTAL & LATERAL) CLINICAL HISTORY: Acute cough MQ: XC2_6 EXAM DATE/TIME: 08/10/2022 10:23 AM COMPARISON: No relevant prior studies available. RESULT: Lines, tubes, and devices: None. Lungs and pleura: No consolidation. No lung mass. No pleural effusion. No pneumothorax. Cardiomediastinal silhouette: Normal cardiomediastinal silhouette. Bones and soft tissues: Mild degenerative changes seen in the spine. IMPRESSION IMPRESSION: No acute radiographic abnormality. Blind Aide: LISA Transcribe Date/Time: Aug 10 2022 10:24A Dictated by : AUDREY NEAL MD This examination was interpreted and the report reviewed and electronically signed by: AUDREY NEAL MD on Aug 10 2022 10:24AM EST [facility] Radiology Study observation (narrative) [facility] XR Chest PA and LateralOrder ed By: [facility] Provider on 08-10-2022 [facility] STREP A MOLECULAR (POC)on Procedural Control Valid [facility] Strep A (POCT) Negative Negative [facility] Vital Signs Date Time Vital Sign Value Performing Clinician Facility 03-29-2025 11:19-0400 Body mass index (BMI) [Ratio] 43.91 kg/m2 Tamera Rain 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 Work Phone: [facility] 03-29-2025 11:19-0400 Body weight 155.13 kg Tamera Suppjorge CROWN PRESSER.PRODUCT PROMOTER SALES PERSON Work Phone: [facility] 03-29-2025 11:19-0400 Diastolic blood pressure 104 mm[Hg] Tamera Rain CROWN PRESSER.PRODUCT PROMOTER SALES PERSON Work Phone: [facility] 03-29-2025 11:19-0400 Heart rate 110 /min Tamera Rain CROWN PRESSER.PRODUCT PROMOTER SALES PERSON Work Phone: [facility] 03-29-2025 11:19-0400 SaO2% (BldA) [Mass fraction] 96 % Tamera Suppjorge CROWN PRESSER.PRODUCT PROMOTER SALES PERSON Work Phone: [facility] 03-29-2025 11:19-0400 Systolic blood pressure 162 mm[Hg] Tamera Rain CROWN PRESSER.PRODUCT PROMOTER SALES PERSON Work Phone: [facility] 03-28-2025 14:02-0400 Body temperature 97.3 [degF] Clemente RANDALLC Work Phone: [facility] 03-28-2025 14:02-0400 Diastolic blood pressure 106 mm[Hg] Clemente Sruthi SENIOR OFFICE SUPPORT ASSISTANT [employer] Work Phone: [facility] 03-28-2025 14:02-0400 Heart rate 102 /min Clemente Sruthi SENIOR OFFICE SUPPORT ASSISTANT [employer] Work Phone: [facility] 03-28-2025 14:02-0400 Respiratory rate 18 /min Clemente Sruthi SENIOR OFFICE SUPPORT ASSISTANT [employer] Work Phone: [facility] 03-28-2025 14:02-0400 Systolic blood pressure 162 mm[Hg] Clemente Sruthi SENIOR OFFICE SUPPORT ASSISTANT [employer] Work Phone: 1(557)703-[address] [place] [address] 03-14-2025 14:01-0400 Body temperature 97.6 [degF] Clemente Sruthi SENIOR OFFICE SUPPORT ASSISTANT [employer] Work Phone: 2(022)497-434197 [place] [address] 03-14-2025 14:01-0400 Diastolic blood pressure 100 mm[Hg] Clemente Sruthi SENIOR OFFICE SUPPORT ASSISTANT [facility] Work Phone: [facility] 03-14-2025 14:01-0400 Heart rate 95 /min Clemente Sruthi SENIOR OFFICE SUPPORT ASSISTANT [employer] Work Phone: 4(283)221-600494 [place] [address] 03-14-2025 14:01-0400 Respiratory rate 18 /min Clemente Sruthi SENIOR OFFICE SUPPORT ASSISTANT [facility] Work Phone: [facility] 03-14-2025 14:01-0400 Systolic blood pressure 155 mm[Hg] Clemente Sruthi SENIOR OFFICE SUPPORT ASSISTANT [employer] Work Phone: [facility] 02-28-2025 14:06-0400 Body height 187.96 cm Clemente Sruthi SENIOR OFFICE SUPPORT ASSISTANT [facility] Work Phone: 8(743)888-131494 [place] [address] 02-28-2025 14:06-0400 Body temperature 97 [degF] Clemente Sruthi SENIOR OFFICE SUPPORT ASSISTANT [facility] Work Phone: [facility] 02-28-2025 14:06-0400 Diastolic blood pressure 100 mm[Hg] Clemente Sruthi SENIOR OFFICE SUPPORT ASSISTANT [facility] Work Phone: 2(301)392-758994 [place] [address] 02-28-2025 14:06-0400 Heart rate 100 /min Clemente Sruthi SENIOR OFFICE SUPPORT ASSISTANT [facility] Work Phone: [facility] 02-28-2025 14:06-0400 Respiratory rate 18 /min Clemente Sruthi SENIOR OFFICE SUPPORT ASSISTANT [facility] Work Phone: [facility] 02-28-2025 14:06-0400 Systolic blood pressure 153 mm[Hg] Clemente Sruthi SENIOR OFFICE SUPPORT ASSISTANT [facility] Work Phone: [facility] 01-16-2025 11:33-0400 Diastolic blood pressure 88 mm[Hg] Clemente Sruthi CROWN PRESSER.PRODUCT PROMOTER SALES PERSON Work Phone: [facility] 01-16-2025 11:33-0400 Systolic blood pressure 140 mm[Hg] Clemente Sruthi CROWN PRESSER.PRODUCT PROMOTER SALES PERSON Work Phone: [facility] 01-16-2025 11:30-0400 Body mass index (BMI) [Ratio] 45.45 kg/m2 Clemente Sruthi CROWN PRESSER.PRODUCT PROMOTER SALES PERSON Work Phone: [facility] 01-16-2025 11:30-0400 Body weight 160.57 kg Clemente Sruthi CROWN PRESSER.PRODUCT PROMOTER SALES PERSON Work Phone: [facility] 01-16-2025 11:30-0400 Heart rate 82 /min Clemente Sruthi CROWN PRESSER.PRODUCT PROMOTER SALES PERSON Work Phone: [facility] 01-16-2025 11:30-0400 Respiratory rate 18 /min Clemente Sruthi CROWN PRESSER.PRODUCT PROMOTER SALES PERSON Work Phone: [facility] 01-01-2025 13:01-0400 Diastolic blood pressure 74 mm[Hg] Tamera Suppan CROWN PRESSER.PRODUCT PROMOTER SALES PERSON Work Phone: [facility] 01-01-2025 13:01-0400 Systolic blood pressure 160 mm[Hg] Tamera Suppan CROWN PRESSER.PRODUCT PROMOTER SALES PERSON Work Phone: [facility] 01-01-2025 12:47-0400 Body mass index (BMI) [Ratio] 45.71 kg/m2 Tamera Suppan CROWN PRESSER.PRODUCT PROMOTER SALES PERSON Work Phone: [facility] 01-01-2025 12:47-0400 Body temperature 97.7 [degF] Tamera Luhjorge CROWN PRESSER.PRODUCT PROMOTER SALES PERSON Work Phone: [facility] 01-01-2025 12:47-0400 Body weight 161.48 kg Tamera Suppjorge CROWN PRESSER.PRODUCT PROMOTER SALES PERSON Work Phone: [facility] 01-01-2025 12:47-0400 Heart rate 95 /min Tamera Suppjorge CROWN PRESSER.PRODUCT PROMOTER SALES PERSON Work Phone: [facility] 01-01-2025 12:47-0400 SaO2% (BldA) [Mass fraction] 98 % Tamera Suppan CROWN PRESSER.PRODUCT PROMOTER SALES PERSON Work Phone: [facility] 12-19-2024 08:32-0400 Diastolic blood pressure 83 mm[Hg] Imani Bogner PA-C Work Phone: [facility] 12-19-2024 08:32-0400 Heart rate 85 /min Imani Bogner PA-C Work Phone: [facility] 12-19-2024 08:32-0400 Systolic blood pressure 143 mm[Hg] Imani Bogner PA-C Work Phone: [facility] 12-19-2024 08:09-0400 Body mass index (BMI) [Ratio] 46.56 kg/m2 Imani Bogner PA-C Work Phone: [facility] 12-19-2024 08:09-0400 Body weight 164.47 kg Imani Bogner PA-C Work Phone: [facility] 12-19-2024 08:09-0400 Respiratory rate 16 /min Imani Bogner PA-C Work Phone: [facility] 12-19-2024 08:09-0400 SaO2% (BldA) [Mass fraction] 94 % Imani Bogner PA-C Work Phone: [facility] 10-06-2024 14:18-0500 Body mass index (BMI) [Ratio] 47.84 kg/m2 Krislyn Aberegg PA Work Phone: [facility] 10-06-2024 14:18-0500 Body temperature 98.71 [degF] Krislyn Aberegg PA Work Phone: [facility] 10-06-2024 14:18-0500 Body weight 169 kg Krislyn Aberegg PA Work Phone: [facility] 10-06-2024 14:18-0500 Diastolic blood pressure 92 mm[Hg] Krislyn Aberegg PA Work Phone: [facility] 10-06-2024 14:18-0500 Heart rate 94 /min Krislyn Aberegg PA Work Phone: [facility] 10-06-2024 14:18-0500 Respiratory rate 16 /min Krislyn Aberegg PA Work Phone: [facility] 10-06-2024 14:18-0500 SaO2% (BldA) [Mass fraction] 95 % Krislyn Aberegg PA Work Phone: [facility] 10-06-2024 14:18-0500 Systolic blood pressure 160 mm[Hg] Krislyn Aberegg PA Work Phone: [facility] 09-18-2024 08:13-0500 Diastolic blood pressure 86 mm[Hg] Clemente Negro 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 Work Phone: [facility] 09-18-2024 08:13-0500 Systolic blood pressure 140 mm[Hg] Clemente Negro 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 Work Phone: [facility] 09-18-2024 08:03-0500 Body mass index (BMI) [Ratio] 48.4 kg/m2 Clemente Negro 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 Work Phone: [facility] 09-18-2024 08:03-0500 Body weight 171.01 kg Clemente Negro 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 Work Phone: [facility] 09-18-2024 08:03-0500 Heart rate 84 /min Clemente Sruthi CROWN PRESSER.PRODUCT PROMOTER SALES PERSON Work Phone: [facility] 09-18-2024 08:03-0500 Respiratory rate 16 /min Clemente Sruthi CROWN PRESSER.PRODUCT PROMOTER SALES PERSON Work Phone: [facility] 09-18-2024 08:03-0500 SaO2% (BldA) [Mass fraction] 95 % Clemente Sruthi CROWN PRESSER.PRODUCT PROMOTER SALES PERSON Work Phone: [facility] 07-17-2024 08:03-0500 Body mass index (BMI) [Ratio] 49.82 kg/m2 Cleemnte Sruthi CROWN PRESSER.PRODUCT PROMOTER SALES PERSON Work Phone: [facility] 07-17-2024 08:03-0500 Body weight 176 kg Clemente Sruthi CROWN PRESSER.PRODUCT PROMOTER SALES PERSON Work Phone: [facility] 07-17-2024 08:03-0500 Diastolic blood pressure 84 mm[Hg] Clemente Sruthi CROWN PRESSER.PRODUCT PROMOTER SALES PERSON Work Phone: [facility] 07-17-2024 08:03-0500 Heart rate 88 /min Clemente Sruthi CROWN PRESSER.PRODUCT PROMOTER SALES PERSON Work Phone: [facility] 07-17-2024 08:03-0500 Respiratory rate 20 /min Clemente Sruthi CROWN PRESSER.PRODUCT PROMOTER SALES PERSON Work Phone: [facility] 07-17-2024 08:03-0500 SaO2% (BldA) [Mass fraction] 98 % Clemente Sruthi CROWN PRESSER.PRODUCT PROMOTER SALES PERSON Work Phone: [facility] 07-17-2024 08:03-0500 Systolic blood pressure 138 mm[Hg] Clemente Sruthi CROWN PRESSER.PRODUCT PROMOTER SALES PERSON Work Phone: [facility] 06-12-2024 08:31-0500 Body mass index (BMI) [Ratio] 50.97 kg/m2 Clemente Sruthi CROWN PRESSER.PRODUCT PROMOTER SALES PERSON Work Phone: [facility] 06-12-2024 08:31-0500 Body weight 180.08 kg Clemente Sruthi CROWN PRESSER.PRODUCT PROMOTER SALES PERSON Work Phone: [facility] 06-12-2024 08:31-0500 Diastolic blood pressure 80 mm[Hg] Clemente Sruthi CROWN PRESSER.PRODUCT PROMOTER SALES PERSON Work Phone: [facility] 06-12-2024 08:31-0500 Heart rate 85 /min Clemente Sruthi CROWN PRESSER.PRODUCT PROMOTER SALES PERSON Work Phone: [facility] 06-12-2024 08:31-0500 Respiratory rate 20 /min Clemente Sruthi CROWN PRESSER.PRODUCT PROMOTER SALES PERSON Work Phone: [facility] 06-12-2024 08:31-0500 SaO2% (BldA) [Mass fraction] 96 % Clemente Sruthi CROWN PRESSER.PRODUCT PROMOTER SALES PERSON Work Phone: [facility] 06-12-2024 08:31-0500 Systolic blood pressure 136 mm[Hg] Clemente Sruthi CROWN PRESSER.PRODUCT PROMOTER SALES PERSON Work Phone: [facility] 05-10-2024 08:20-0400 Body mass index (BMI) [Ratio] 52.85 kg/m2 Tiffanie Arshadf CROWN PRESSER.PRODUCT PROMOTER SALES PERSON Work Phone: [facility] 05-10-2024 08:20-0400 Body weight 186.7 kg Tiffnaie Arshadf CROWN PRESSER.PRODUCT PROMOTER SALES PERSON Work Phone: [facility] 05-10-2024 08:20-0400 Diastolic blood pressure 98 mm[Hg] Tiffanie Arshadf CROWN PRESSER.PRODUCT PROMOTER SALES PERSON Work Phone: [facility] 05-10-2024 08:20-0400 Heart rate 92 /min Tiffanie Jacksonhof CROWN PRESSER.PRODUCT PROMOTER SALES PERSON Work Phone: [facility] 05-10-2024 08:20-0400 Respiratory rate 16 /min Tiffanie Jacksonhof CROWN PRESSER.PRODUCT PROMOTER SALES PERSON Work Phone: [facility] 05-10-2024 08:20-0400 SaO2% (BldA) [Mass fraction] 96 % Tiffanie Arshadf CROWN PRESSER.PRODUCT PROMOTER SALES PERSON Work Phone: [facility] 05-10-2024 08:20-0400 Systolic blood pressure 150 mm[Hg] Tiffanie Tannhof CROWN PRESSER.PRODUCT PROMOTER SALES PERSON Work Phone: [facility] 03-06-2024 14:27-0400 Body mass index (BMI) [Ratio] 53.21 kg/m2 Tiffanieyrn Jacksonhof CROWN PRESSER.PRODUCT PROMOTER SALES PERSON Work Phone: [facility] 03-06-2024 14:27-0400 Body weight 188 kg Tiffanieyrn Jacksonhof CROWN PRESSER.PRODUCT PROMOTER SALES PERSON Work Phone: [facility] 03-06-2024 14:27-0400 Diastolic blood pressure 100 mm[Hg] Tiffanie Tannhof CROWN PRESSER.PRODUCT PROMOTER SALES PERSON Work Phone: [facility] 03-06-2024 14:27-0400 Heart rate 102 /min Tiffanie Jacksonhof CROWN PRESSER.PRODUCT PROMOTER SALES PERSON Work Phone: [facility] 03-06-2024 14:27-0400 Respiratory rate 20 /min Tiffanie Jacksonhof CROWN PRESSER.PRODUCT PROMOTER SALES PERSON Work Phone: [facility] 03-06-2024 14:27-0400 SaO2% (BldA) [Mass fraction] 96 % Tiffanie Jacksonhof CROWN PRESSER.PRODUCT PROMOTER SALES PERSON Work Phone: [facility] 03-06-2024 14:27-0400 Systolic blood pressure 160 mm[Hg] Tiffanie Jacksonhof CROWN PRESSER.PRODUCT PROMOTER SALES PERSON Work Phone: [facility] 02-25-2024 10:45-0400 Body mass index (BMI) [Ratio] 52.26 kg/m2 Clemente Sruthi CROWN PRESSER.PRODUCT PROMOTER SALES PERSON Work Phone: [facility] 02-25-2024 10:45-0400 Body weight 184.61 kg Clemente Garciail CROWN PRESSER.PRODUCT PROMOTER SALES PERSON Work Phone: [facility] 02-25-2024 10:45-0400 Diastolic blood pressure 88 mm[Hg] Clemente Sruthi CROWN PRESSER.PRODUCT PROMOTER SALES PERSON Work Phone: [facility] 02-25-2024 10:45-0400 Heart rate 98 /min Clemente Sruthi CROWN PRESSER.PRODUCT PROMOTER SALES PERSON Work Phone: [facility] 02-25-2024 10:45-0400 Respiratory rate 20 /min Clemente Sruthi CROWN PRESSER.PRODUCT PROMOTER SALES PERSON Work Phone: [facility] 02-25-2024 10:45-0400 SaO2% (BldA) [Mass fraction] 97 % Clemente Sruthi CROWN PRESSER.PRODUCT PROMOTER SALES PERSON Work Phone: [facility] 02-25-2024 10:45-0400 Systolic blood pressure 146 mm[Hg] Clemente Sruthi CROWN PRESSER.PRODUCT PROMOTER SALES PERSON Work Phone: [facility] 01-31-2024 09:04-0400 Body mass index (BMI) [Ratio] 51.54 kg/m2 Clemente Sruthi CROWN PRESSER.PRODUCT PROMOTER SALES PERSON Work Phone: [facility] 01-31-2024 09:04-0400 Body weight 182.07 kg Clemente Sruthi CROWN PRESSER.PRODUCT PROMOTER SALES PERSON Work Phone: [facility] 01-31-2024 09:04-0400 Diastolic blood pressure 69 mm[Hg] Clemente Sruthi CROWN PRESSER.PRODUCT PROMOTER SALES PERSON Work Phone: [facility] 01-31-2024 09:04-0400 Heart rate 94 /min Clemente Sruthi CROWN PRESSER.PRODUCT PROMOTER SALES PERSON Work Phone: [facility] 01-31-2024 09:04-0400 Respiratory rate 18 /min Clemente Sruthi CROWN PRESSER.PRODUCT PROMOTER SALES PERSON Work Phone: [facility] 01-31-2024 09:04-0400 SaO2% (BldA) [Mass fraction] 96 % Clemente Sruthi CROWN PRESSER.PRODUCT PROMOTER SALES PERSON Work Phone: [facility] 01-31-2024 09:04-0400 Systolic blood pressure 127 mm[Hg] Clemente Sruthi CROWN PRESSER.PRODUCT PROMOTER SALES PERSON Work Phone: [facility] 12-06-2023 08:44-0400 Body mass index (BMI) [Ratio] 51.31 kg/m2 Clemente Sruthi CROWN PRESSER.PRODUCT PROMOTER SALES PERSON Work Phone: [facility] 12-06-2023 08:44-0400 Body weight 181.26 kg Clemente Sruthi CROWN PRESSER.PRODUCT PROMOTER SALES PERSON Work Phone: [facility] 12-06-2023 08:44-0400 Diastolic blood pressure 93 mm[Hg] Clemente Sruthi CROWN PRESSER.PRODUCT PROMOTER SALES PERSON Work Phone: [facility] 12-06-2023 08:44-0400 Heart rate 91 /min Clemente Sruthi CROWN PRESSER.PRODUCT PROMOTER SALES PERSON Work Phone: [facility] 12-06-2023 08:44-0400 Respiratory rate 16 /min Clemente Sruthi CROWN PRESSER.PRODUCT PROMOTER SALES PERSON Work Phone: [facility] 12-06-2023 08:44-0400 SaO2% (BldA) [Mass fraction] 98 % Clemente Sruthi CROWN PRESSER.PRODUCT PROMOTER SALES PERSON Work Phone: [facility] 12-06-2023 08:44-0400 Systolic blood pressure 138 mm[Hg] Clemente Sruthi CROWN PRESSER.PRODUCT PROMOTER SALES PERSON Work Phone: [facility] 11-22-2023 13:26-0400 Body mass index (BMI) [Ratio] 51.49 kg/m2 Rigo Horton MD Work Phone: [facility] 11-22-2023 13:26-0400 Body temperature 98.29 [degF] Rigo Horton MD Work Phone: [facility] 11-22-2023 13:26-0400 Body weight 181.9 kg Rigo Horton MD Work Phone: [facility] 11-22-2023 13:26-0400 Diastolic blood pressure 100 mm[Hg] Rigo Horton MD Work Phone: [facility] 11-22-2023 13:26-0400 Heart rate 94 /min Rigo Horton MD Work Phone: [facility] 11-22-2023 13:26-0400 Respiratory rate 16 /min Rigo Horton MD Work Phone: [facility] 11-22-2023 13:26-0400 SaO2% (BldA) [Mass fraction] 97 % Rigo Horton MD Work Phone: [facility] 11-22-2023 13:26-0400 Systolic blood pressure 168 mm[Hg] Rigo Horton MD Work Phone: [facility] 06-07-2023 09:04-0500 Diastolic blood pressure 88 mm[Hg] Clemente Sruthi CROWN PRESSER.PRODUCT PROMOTER SALES PERSON Work Phone: [facility] 06-07-2023 09:04-0500 Systolic blood pressure 134 mm[Hg] Clemente Sruthi CROWN PRESSER.PRODUCT PROMOTER SALES PERSON Work Phone: [facility] 06-07-2023 08:50-0500 Body weight 175.27 kg Clemente Sruthi CROWN PRESSER.PRODUCT PROMOTER SALES PERSON Work Phone: [facility] 06-07-2023 08:50-0500 Heart rate 100 /min Clemente Sruthi CROWN PRESSER.PRODUCT PROMOTER SALES PERSON Work Phone: [facility] 06-07-2023 08:50-0500 Respiratory rate 18 /min Clemente Sruthi CROWN PRESSER.PRODUCT PROMOTER SALES PERSON Work Phone: [facility] 06-07-2023 08:50-0500 SaO2% (BldA) [Mass fraction] 95 % Clemente Sruthi CROWN PRESSER.PRODUCT PROMOTER SALES PERSON Work Phone: [facility] 04-26-2023 14:46-0400 Body temperature 98.4 [degF] Dr. Marvin Sheets Work Phone: [facility] 04-26-2023 14:46-0400 Diastolic blood pressure 80 mm[Hg] Dr. Marvin Sheets Work Phone: [facility] 04-26-2023 14:46-0400 Heart rate 89 /min Dr. Marvin Sheets Work Phone: [facility] 04-26-2023 14:46-0400 Respiratory rate 18 /min Dr. Marvin Sheets Work Phone: 2(003)542-512810 [place] [address] 04-26-2023 14:46-0400 SaO2% (BldA) [Mass fraction] 94 % Dr. Marvin Sheets Work Phone: 1(194)072-856510 [place] [address] 04-26-2023 14:46-0400 Systolic blood pressure 145 mm[Hg] Dr. Marvin Sheets Work Phone: 6(544)638-244010 [place] [address] 04-25-2023 07:57-0400 Inhaled oxygen flow rate 97 L/min Dr. Marvin Sheets Work Phone: 8(457)201-401810 [place] [address] 04-21-2023 16:13-0400 Body height 187.[address] Marvin Sheets Work Phone: 3(192)907-209510 [place] [address] 04-21-2023 16:13-0400 Body weight 143.[address] Marvin Sheets Work Phone: 2(484)073-802410 [place] [address] 04-21-2023 12:58-0400 Body mass index (BMI) [Ratio] 40.6 kg/m2 Dr. Marvin Sheets Work Phone: 1(408)656-200210 [place] [address] 04-20-2023 12:54-0400 Body temperature 98.2 [degF] Dr. Marvin Sheets Work Phone: 6(713)132-930810 [place] [address] 04-20-2023 12:54-0400 Diastolic blood pressure 80 mm[Hg] Dr. Marvin Sheets Work Phone: 8(569)627-722410 [place] [address] 04-20-2023 12:54-0400 Heart rate 94 /min Dr. Marvin Sheets Work Phone: 4(966)987-288310 [place] [address] 04-20-2023 12:54-0400 Respiratory rate 18 /min Dr. Marvin Sheets Work Phone: 2(889)309-141110 [place] [address] 04-20-2023 12:54-0400 SaO2% (BldA) [Mass fraction] 97 % Dr. Marvin Sheets Work Phone: 9(454)184-710010 [place] [address] 04-20-2023 12:54-0400 Systolic blood pressure 141 mm[Hg] Dr. Marvin Sheets Work Phone: 7(166)924-278510 [place] [address] 04-20-2023 05:17-0400 Inhaled oxygen flow rate 2 L/min Dr. Marvin Sheets Work Phone: 1(764)783-460610 [place] [address] 04-19-2023 13:07-0400 Body height 187.[address] Marvin Sheets Work Phone: 5(665)772-988610 [place] [address] 04-19-2023 13:07-0400 Body weight 172.[address] Marvin Sheets Work Phone: 8(322)651-562710 [place] [address] 04-17-2023 17:51-0400 Body mass index (BMI) [Ratio] 48.9 kg/m2 Dr. Marvin Sheets Work Phone: 7(925)970-439010 [place] [address] 04-17-2023 16:42-0400 Body temperature 97 [degF] Dr. Marvin Sheets Work Phone: 0(945)175-424410 [place] [address] 04-17-2023 16:42-0400 Diastolic blood pressure 69 mm[Hg] Dr. Marvin Sheets Work Phone: 3(449)737-755810 [place] [address] 04-17-2023 16:42-0400 Heart rate 106 /min Dr. Marvin Sheets Work Phone: 4(720)080-879510 [place] [address] 04-17-2023 16:42-0400 Respiratory rate 20 /min Dr. Marvin Sheets Work Phone: 3(278)639-541510 [place] [address] 04-17-2023 16:42-0400 SaO2% (BldA) [Mass fraction] 92 % Dr. Marvin Sheets Work Phone: 0(997)618-027710 [place] [address] 04-17-2023 16:42-0400 Systolic blood pressure 142 mm[Hg] Dr. Marvin Sheets Work Phone: 7(496)112-255410 [place] [address] 04-17-2023 14:49-0400 Body height 187.[address] Marvin Sheets Work Phone: 2(662)786-571710 [place] [address] 04-17-2023 14:49-0400 Body mass index (BMI) [Ratio] 50.2 kg/m2 Dr. Marvin Sheets Work Phone: 9(485)388-574110 [place] [address] 04-17-2023 14:49-0400 Body weight 177.[address] Marvin Sheets Work Phone: [facility] 04-09-2023 08:26-0400 Body weight 177.45 kg Clemente Sruthi CROWN PRESSER.PRODUCT PROMOTER SALES PERSON Work Phone: [facility] 04-09-2023 08:26-0400 Diastolic blood pressure 80 mm[Hg] Clemente Sruthi CROWN PRESSER.PRODUCT PROMOTER SALES PERSON Work Phone: [facility] 04-09-2023 08:26-0400 Heart rate 94 /min Clemente Sruthi CROWN PRESSER.PRODUCT PROMOTER SALES PERSON Work Phone: [facility] 04-09-2023 08:26-0400 Respiratory rate 16 /min Clemente Sruthi CROWN PRESSER.PRODUCT PROMOTER SALES PERSON Work Phone: [facility] 04-09-2023 08:26-0400 SaO2% (BldA) [Mass fraction] 98 % Clemente Sruthi CROWN PRESSER.PRODUCT PROMOTER SALES PERSON Work Phone: [facility] 04-09-2023 08:26-0400 Systolic blood pressure 140 mm[Hg] Clemente Sruthi CROWN PRESSER.PRODUCT PROMOTER SALES PERSON Work Phone: [facility] 12-03-2022 11:10-0400 Body weight 173 kg Marvin Sheets MD Work Phone: [facility] 12-03-2022 11:10-0400 Diastolic blood pressure 90 mm[Hg] Marvin Sheets MD Work Phone: [facility] 12-03-2022 11:10-0400 Heart rate 82 /min Marvin Sheets MD Work Phone: [facility] 12-03-2022 11:10-0400 Respiratory rate 18 /min Marvin Sheets MD Work Phone: [facility] 12-03-2022 11:10-0400 Systolic blood pressure 140 mm[Hg] Marvin Sheets MD Work Phone: [facility] 11-03-2022 09:50-0400 Diastolic blood pressure 92 mm[Hg] Marvin Sheets MD Work Phone: [facility] 11-03-2022 09:50-0400 Systolic blood pressure 154 mm[Hg] Marvin Sheets MD Work Phone: [facility] 11-03-2022 09:48-0400 Body weight 174.63 kg Marvin Sheest MD Work Phone: [facility] 11-03-2022 09:48-0400 Heart rate 104 /min Marvin Sheets MD Work Phone: [facility] 11-03-2022 09:48-0400 Respiratory rate 20 /min Marvin Sheets MD Work Phone: [facility] 10-30-2022 10:28-0400 Body temperature 97.7 [degF] Anna Pressley 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 Work Phone: [facility] 10-30-2022 10:28-0400 Body weight 176.18 kg Anna Pressley 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 Work Phone: [facility] 10-30-2022 10:28-0400 Diastolic blood pressure 84 mm[Hg] Anna Pressley 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 Work Phone: [facility] 10-30-2022 10:28-0400 Heart rate 109 /min Anna Pressley 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 Work Phone: [facility] 10-30-2022 10:28-0400 Respiratory rate 18 /min Anna Pressley 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 Work Phone: [facility] 10-30-2022 10:28-0400 SaO2% (BldA) [Mass fraction] 97 % Anna Pressley 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 Work Phone: [facility] 10-30-2022 10:28-0400 Systolic blood pressure 128 mm[Hg] Anna Pressley 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 Work Phone: [facility] 08-10-2022 10:05-0500 Body temperature 99.19 [degF] Imani Nieves PA-C Work Phone: [facility] 08-10-2022 10:05-0500 Body weight 167.83 kg Imani Bogner PA-C Work Phone: [facility] 08-10-2022 10:05-0500 Diastolic blood pressure 80 mm[Hg] Imani Bogner PA-C Work Phone: [facility] 08-10-2022 10:05-0500 Heart rate 116 /min Imani Bogner PA-C Work Phone: [facility] 08-10-2022 10:05-0500 Respiratory rate 18 /min Imani Bogner PA-C Work Phone: [facility] 08-10-2022 10:05-0500 SaO2% (BldA) [Mass fraction] 94 % Imani Bogner PA-C Work Phone: [facility] 08-10-2022 10:05-0500 Systolic blood pressure 142 mm[Hg] Imani Bogner PA-C Work Phone: [facility] 05-19-2022 11:08-0400 Body weight 170.1 kg Marvin Sheets MD Work Phone: [facility] 05-19-2022 11:08-0400 Diastolic blood pressure 86 mm[Hg] Marvin Sheets MD Work Phone: [facility] 05-19-2022 11:08-0400 Heart rate 96 /min Marvin Sheets MD Work Phone: [facility] 05-19-2022 11:08-0400 Respiratory rate 16 /min Marvin Sheets MD Work Phone: [facility] 05-19-2022 11:08-0400 Systolic blood pressure 138 mm[Hg] Marvin Sheets MD Work Phone: [facility] 04-09-2022 09:42-0400 Body temperature 98.6 [degF] Bridgett Yates APRN.CNP Work Phone: [facility] 04-09-2022 09:42-0400 Body weight 165.11 kg Bridgett Yates CROWN PRESSER.PRODUCT PROMOTER SALES PERSON Work Phone: [facility] 04-09-2022 09:42-0400 Diastolic blood pressure 90 mm[Hg] Bridgett Yates CROWN PRESSER.PRODUCT PROMOTER SALES PERSON Work Phone: [facility] 04-09-2022 09:42-0400 Heart rate 115 /min Bridgett Yates CROWN PRESSER.PRODUCT PROMOTER SALES PERSON Work Phone: [facility] 04-09-2022 09:42-0400 Respiratory rate 18 /min Bridgett Yates CROWN PRESSER.PRODUCT PROMOTER SALES PERSON Work Phone: [facility] 04-09-2022 09:42-0400 SaO2% (BldA) [Mass fraction] 96 % Bridgett Yates CROWN PRESSER.PRODUCT PROMOTER SALES PERSON Work Phone: [facility] 04-09-2022 09:42-0400 Systolic blood pressure 142 mm[Hg] Bridgett Yates CROWN PRESSER.PRODUCT PROMOTER SALES PERSON Work Phone: [facility] 02-06-2022 08:59-0400 Body weight 164.66 kg Tiffanie Tannhof CROWN PRESSER.PRODUCT PROMOTER SALES PERSON Work Phone: [facility] 02-06-2022 08:59-0400 Diastolic blood pressure 90 mm[Hg] Tiffanie Tannhof CROWN PRESSER.PRODUCT PROMOTER SALES PERSON Work Phone: [facility] 02-06-2022 08:59-0400 Heart rate 94 /min Tiffanie Tannhof CROWN PRESSER.PRODUCT PROMOTER SALES PERSON Work Phone: [facility] 02-06-2022 08:59-0400 Respiratory rate 20 /min Tiffanie Tannhof CROWN PRESSER.PRODUCT PROMOTER SALES PERSON Work Phone: [facility] 02-06-2022 08:59-0400 SaO2% (BldA) [Mass fraction] 97 % Tiffanie Tannhof CROWN PRESSER.PRODUCT PROMOTER SALES PERSON Work Phone: [facility] 02-06-2022 08:59-0400 Systolic blood pressure 140 mm[Hg] Tiffanie Tannhof CROWN PRESSER.PRODUCT PROMOTER SALES PERSON Work Phone: [facility] Encounters Encounter Date Encounter Type Care Provider Facility Start: 04-20-2025 ambulatory Clemente Negro Facility:[facility] Start: 04-19-2025 Encounter for other preprocedural examination Negrito Sosa [facility] Start: 04-18-2025 ambulatory Riki King Facility:[facility] Start: 03-30-2025 End: 04-05-2025 Follow-up encounter Tamera Rain 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 Work Phone: [facility] Start: 03-29-2025 End: 03-29-2025 ambulatory TAMERA RAIN Facility:[facility] Start: 03-29-2025 End: 03-29-2025 Office outpatient visit 25 minutes Tamera Rain 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 Work Phone: [facility] Comment on above: Eczema, dyshidrotic (Primary Dx); Hypertension, essential; Attention deficit hyperactivity disorder (ADHD), predominantly hyperactive type; Obesity, Class III, BMI 40-49.9 (morbid obesity) (HCC); MARJ (obstructive sleep apnea); Edema of toe; Pre-op exam; Iron deficiency anemia, unspecified iron deficiency anemia type Start: 03-29-2025 End: 03-29-2025 Preprocedural examination done Tamera Rain 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 Work Phone: [facility] Start: 03-29-2025 End: 03-29-2025 ambulatory MARVIN Aranda [facility] Facility:[facility] Start: 03-29-2025 Encounter for other preprocedural examination TAMERA RAIN [facility] Start: 03-28-2025 End: 04-01-2025 ambulatory Clemente Negro SENIOR OFFICE SUPPORT ASSISTANT [facility] Work Phone: [facility] Start: 03-28-2025 End: 04-01-[address] Negrito Sosa D[facility] Work Phone: Start: 03-14-[address] Negrito to [facility] Work Phone: Start: 03-06-2025 End: 03-06-2025 ambulatory Clemente Sruthi SENIOR OFFICE SUPPORT ASSISTANT [facility] Work Phone: -Radiology [facility] Start: 03-06-2025 End: 03-06-[address] Negrito Sosa DPM -Radiology [facility] Work Phone: Start: 03-06-2025 End: 03-06-2025 ambulatory Clemente Sruthi Facility:[facility] Start: 02-28-2025 End: 03-01-[address] Negrito Sosa D[facility] Work Phone: Start: 02-28-2025 End: 03-01-2025 ambulatory Clemente Sruthi SENIOR OFFICE SUPPORT ASSISTANT [facility] Work Phone: [facility] Start: 01-23-2025 End: 01-23-2025 Telephone encounter Marvin Sheets MD Work Phone: [facility] [place] Comment on above: Insurance Authorizat ion Start: 01-16-2025 End: 01-16-2025 Office outpatient visit 25 minutes Clemente Negro CROWN PRESSER.PRODUCT PROMOTER SALES PERSON Work Phone: [facility] Comment on above: Attention deficit hy peractivity disorder (ADHD), predominantly hyperactive type (Primary Dx); Essential hypertension; Obesity, Class III, BMI 40-49.9 (morbid obesity) ([facility]); Seasonal allergic rhinitis, unspecified trigger; Bilateral sciatica Start: 01-16-2025 End: 01-16-2025 ambulatory MARVIN SHEETS Facility:[facility] Start: 01-01-2025 End: 01-02-2025 Follow-up encounter Tamera Rain CROWN PRESSER.PRODUCT PROMOTER SALES PERSON Work Phone: [facility] [place] Start: 01-01-2025 End: 01-01-2025 Subsequent hospital visit by physician Xr [facility] [place] Work Phone: Radiology Comment on above: Sciatica, right side [M54.31] Start: 01-01-2025 End: 01-01-2025 Office outpatient visit 15 minutes Tamera Rain CROWN PRESSER.PRODUCT PROMOTER SALES PERSON Work Phone: [facility] Comment on above: Sciatica, right side (Primary Dx); Bilateral leg cramps Start: 01-01-2025 End: 01-01-2025 [facility] Facility:[facility] Start: 12-19-2024 End: 12-19-2024 Office outpatient visit 25 minutes Imani Nieves PA-C Work Phone: [facility] [place] Comment on above: Essential hypertensi on (Primary Dx); Screening for depression; Encounter for screening examination for other mental health and behavioral disorders; Attention deficit hyperactivity disorder (ADHD), predominantly hyperactive type; Chronic bilateral low back pain with bilateral sciatica; Obesity, Class III, BMI 40-49.9 (morbid obesity); Depression, major, single episode, moderate (HCC); Seasonal allergic rhinitis, unspecified trigger Start: 12-19-2024 End: 12-19-2024 [facility] Facility:[facility] Start: 12-13-2024 End: 12-14-2024 Refill Marvin Sheets MD Work Phone: [facility] [place] Comment on above: Refill Request Start: 11-30-2024 End: 11-30-2024 Refill Clemente Sruthi ACEVEDO.PRODUCT PROMOTER SALES PERSON Work Phone: [facility] [place] Comment on above: Refill Request Start: 10-28-2024 End: 10-28-2024 Refill Clemente Sruthi CROWN PRESSER.PRODUCT PROMOTER SALES PERSON Work Phone: [facility] [place] Comment on above: Refill Request Start: 10-06-2024 End: 10-06-2024 [facility] Facility:[facility] Start: 10-06-2024 End: 10-06-2024 Patient encounter procedure Jacqueline MANRIQUEZ Work Phone: [facility] Comment on above: Superficial injury o f gum with infection, initial encounter (Primary Dx) Start: 09-22-2024 End: 09-22-2024 Follow-up encounter Tiffanie Gillis APRN.CNP Work Phone: [facility] [place] Start: 09-19-2024 End: 09-20-2024 Refill Marvin Sheets MD Work Phone: [facility] [place] Comment on above: Refill Request Start: 09-18-2024 End: 09-18-2024 ambulatory [facility] Facility:[facility] Start: 09-18-2024 End: 09-18-2024 Office outpatient visit 25 minutes Clemente Negro 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 Work Phone: [facility] [place] Comment on above: Attention deficit hy peractivity disorder (ADHD), predominantly hyperactive type (Primary Dx); Difficulty sleeping; Prediabetes; Current mild episode of major depressive disorder, unspecified whether recurrent ([facility]); Class 3 severe obesity with body mass index (BMI) of 45.0 to 49.9 in adult, unspecified obesity type, unspecified whether serious comorbidity present ([facility]); Hypertension, essential Start: 09-01-2024 End: 09-04-2024 Refill Shivam Cunningham Work Phone: Podiatry Comment on above: Med Change Request Start: 09-01-2024 End: 09-01-2024 ambulatory [facility] Facility:[facility] Start: 09-01-2024 End: 09-01-2024 Patient encounter procedure Shivam Cunningham Work Phone: Podiatry Comment on above: Ulcer of toe of left foot, limited to breakdown of skin (HCC) (Primary Dx); Callus of foot; Posterior tibial tendon dysfunction Start: 08-25-2024 End: 08-28-2024 Refill Tiffanie Gillis 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 Work Phone: [facility] [place] Comment on above: Refill Request Start: 08-15-2024 End: 08-15-2024 Refill Tiffanie Gillis 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 Work Phone: [facility] Comment on above: Refill Request Start: 08-08-2024 End: 08-08-2024 Refill Clemente Negro 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 Work Phone: [facility] [place] Comment on above: Medication Problem Start: 08-04-2024 End: 08-04-2024 ambulatory MARVIN SHEETS Facility:[facility] Start: 08-04-2024 End: 08-04-2024 Patient encounter procedure Shivam Cunningham Work Phone: Podiatry Comment on above: Ulcer of toe of left foot, limited to breakdown of skin (HCC) (Primary Dx); Callus of foot Start: 07-28-2024 End: 07-28-2024 Refill Clemente Negro CROWN PRESSER.PRODUCT PROMOTER SALES PERSON Work Phone: [facility] [place] Comment on above: Refill Request Start: 07-17-2024 End: 07-17-2024 Office outpatient visit 15 minutes Clemente Negro CROWN PRESSER.PRODUCT PROMOTER SALES PERSON Work Phone: [facility] [place] Comment on above: Obesity, Class III, BMI 40-49.9 (morbid obesity) (HCC) (Primary Dx) Start: 07-17-2024 End: 07-17-2024 Refill Marvin Sheets MD Work Phone: [facility] [place] Comment on above: Refill Request Start: 07-07-2024 End: 07-07-2024 Refill Tiffanie Gillis CROWN PRESSER.PRODUCT PROMOTER SALES PERSON Work Phone: [facility] [place] Comment on above: Refill Request Ulcer of toe of left foot, limited to breakdown of skin (HCC) (Primary Dx); Callus of foot; Posterior tibial tendon dysfunction Start: 07-06-2024 End: 07-06-2024 Telephone encounter Shivam Cunningham Work Phone: Podiatry Start: 07-02-2024 End: 07-03-2024 Refill Lcemente Sruthi CROWN PRESSER.PRODUCT PROMOTER SALES PERSON Work Phone: [facility] [place] Comment on above: Refill Request Start: 06-23-2024 End: 06-23-2024 Refill Clemente Sruthi CROWN PRESSER.PRODUCT PROMOTER SALES PERSON Work Phone: [facility] [place] Comment on above: Refill Request Ulcer of toe of left foot, limited to breakdown of skin (HCC) [L97.521] Ulcer of toe of left foot, limited to breakdown of skin (HCC) (Primary Dx); Posterior tibial tendon dysfunction Start: 06-12-2024 End: 06-12-2024 ambulatory [facility] Facility:[facility] Start: 06-12-2024 End: 06-12-2024 Office outpatient visit 25 minutes Clemente Negro APRN.CNP Work Phone: [facility] [place] Comment on above: Attention deficit hy peractivity disorder (ADHD), predominantly hyperactive type (Primary Dx); Hyperlipidemia, unspecified hyperlipidemia type; Prediabetes; Depression, unspecified depression type; Hypertension, essential; Encounter for immunization; BMI 50.0-59.9, adult (HCC); Elevated hemoglobin A1c; Difficulty sleeping Start: 06-08-2024 End: 06-08-2024 Refill Clemente Negro APRN.CNP Work Phone: [facility] [place] Comment on above: Refill Request Start: 06-06-2024 End: 06-06-2024 Subsequent hospital visit by physician [facility] [place] Work Phone: Radiology Comment on above: Ulcer of toe of left foot, limited to breakdown of skin (HCC) [L97.521] Start: 06-06-2024 End: 06-06-2024 [facility] Facility:[facility] Start: 06-06-2024 End: 06-06-2024 Patient encounter procedure Shivam Cunningham Work Phone: Podiatry Comment on above: Ulcer of toe of left foot, limited to breakdown of skin (HCC) (Primary Dx) Start: 05-24-2024 End: 05-25-2024 Refill Tiffanie Gillis APRN.CNP Work Phone: [facility] [place] Comment on above: Refill Request Start: 05-12-2024 End: 05-15-2024 Telephone encounter Tiffanie Gillis APRN.CNP Work Phone: [facility] [place] Comment on above: Results (Labs ) Insurance Authorizat ion Start: 05-10-2024 End: 05-10-2024 [facility] Facility:[facility] Start: 05-10-2024 End: 05-10-2024 Patient encounter procedure Tiffanie Gillis APRN.CNP Work Phone: [facility] Comment on above: Difficulty sleeping (Primary Dx); Weight gain; Snoring; Essential hypertension Start: 04-24-2024 End: 04-24-2024 ambulatory SHIVAM CUNNINGHAM Facility:[facility] Start: 04-24-2024 End: 04-24-2024 Patient encounter procedure Shivam Arguetadilip Work Phone: Podiatry Comment on above: Skin ulcer of toe, l imited to breakdown of skin, unspecified laterality (HCC) (Primary Dx); Callus of foot; Blister of toe of left foot, initial encounter Refill Request Start: 03-28-2024 End: 03-28-2024 Refill Marvin Sheets MD Work Phone: [facility] Comment on above: Refill Request Start: 03-23-2024 End: 03-24-2024 Refill Marvin Sheets MD Work Phone: [facility] Comment on above: Refill Request Skin ulcer of toe, l imited to breakdown of skin, unspecified laterality (HCC) (Primary Dx); Callus of foot Start: 03-22-2024 End: 03-22-2024 Refill Clemente Negro 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 Work Phone: [facility] Comment on above: Refill Request Start: 03-20-2024 End: 03-20-2024 Refill Marvin Sheets MD Work Phone: [facility] Comment on above: Refill Request Start: 03-06-2024 End: 03-06-2024 Patient encounter procedure Tiffanie Gillis 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 Work Phone: [facility] Comment on above: Dermatitis (Primary Dx); Essential hypertension Start: 03-02-2024 End: 03-02-2024 Patient encounter procedure Shivam Testdilip Work Phone: Podiatry Comment on above: Skin ulcer of toe, l imited to breakdown of skin, unspecified laterality (HCC) (Primary Dx); Callus of foot Start: 02-25-2024 End: 02-25-2024 Office outpatient visit 25 minutes Clemente Negro 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 Work Phone: [facility] Comment on above: Acute bilateral low back pain with bilateral sciatica (Primary Dx) Start: 02-21-2024 Refill Tiffanie Gillis CROWN PRESSER.PRODUCT PROMOTER SALES PERSON Work Phone: [facility] Comment on above: Refill Request Start: 01-31-2024 End: 01-31-2024 Office outpatient visit 15 minutes Clemente Negro CROWN PRESSER.PRODUCT PROMOTER SALES PERSON Work Phone: [facility] Comment on above: Blister of toe, left , subsequent encounter (Primary Dx) Start: 01-19-2024 Refill Clemente PIERRE RN.PRODUCT PROMOTER SALES PERSON Work Phone: [facility] Comment on above: Refill Request Start: 01-10-2024 Refill Clemente PIERRE RN.[facility] Work Phone: [facility] Comment on above: Refill Request Start: 12-31-2023 Refill Clemente PIERRE RN.PRODUCT PROMOTER SALES PERSON Work Phone: [facility] Comment on above: Refill Request Start: 12-29-2023 Refill Clemente PIERRE RN.[facility] Work Phone: [facility] Comment on above: Refill Request Start: 12-22-2023 Refill Clemente PIERRE RN.[facility] Work Phone: [facility] Comment on above: Refill Request Start: 12-18-2023 Refill Clemente PIERRE RN.PRODUCT PROMOTER SALES PERSON Work Phone: [facility] Comment on above: Refill Request Start: 12-06-2023 End: 12-06-2023 Office outpatient visit 25 minutes Clemente Negro APRN.[facility] Work Phone: [facility] Comment on above: Attention deficit hy peractivity disorder (ADHD), predominantly hyperactive type (Primary Dx); Essential hypertension; Current mild episode of major depressive disorder, unspecified whether recurrent (HCC); Poison luz dermatitis Start: 11-22-2023 End: 11-22-2023 Patient encounter procedure Rigo J Horton MD Work Phone: [facility] Comment on above: Acute non-recurrent sinusitis, unspecified location (Primary Dx) Start: 11-14-2023 Refill Clemente PIERRE RN.PRODUCT PROMOTER SALES PERSON Work Phone: [facility] [place] Comment on above: Refill Request Start: 11-02-2023 Refill Marvin crawford MD Work Phone: [facility] [place] Comment on above: Refill Request Start: 10-25-2023 Refill Tiffnaie Gillis 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 Work Phone: [facility] [place] Comment on above: Refill Request Start: 10-16-2023 Refill Clemente PIERRE RN.PRODUCT PROMOTER SALES PERSON Work Phone: [facility] [place] Comment on above: Refill Request Start: 10-15-2023 Refill Clemente PIERRE RN.PRODUCT PROMOTER SALES PERSON Work Phone: [facility] [place] Comment on above: Refill Request Start: 09-15-2023 Refill Clemente PIERRE RN.PRODUCT PROMOTER SALES PERSON Work Phone: [facility] [place] Comment on above: Refill Request Start: 09-10-2023 ambulatory Clemente PIERRE RN.PRODUCT PROMOTER SALES PERSON Work Phone: [facility] [place] Comment on above: strep testing Start: 09-10-2023 E-mail encounter fro m caregiver Clemente Negro 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 Work Phone: [facility] Start: 07-19-2023 End: 07-19-2023 Subsequent hospital visit by physician Xr [facility] [place] Work Phone: Radiology Comment on above: Abscess or celluliti s of toe, left [L03.032, L02.612] Start: 07-15-2023 Refill Marvin crawford MD Work Phone: [facility] [place] Comment on above: Refill Request Start: 07-12-2023 Refill Clemente PIERRE RN.PRODUCT PROMOTER SALES PERSON Work Phone: [facility] Comment on above: Refill Request Start: 06-12-2023 Refill Clemente PIERRE RN.PRODUCT PROMOTER SALES PERSON Work Phone: [facility] Comment on above: Refill Request Start: 06-09-2023 Telephone encounter Clemente ewing 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 Work Phone: [facility] Comment on above: Results Start: 06-08-2023 Telephone encounter Marvin carias MD Work Phone: [facility] Comment on above: Insurance Authorizat ion ([employer]YVANSE ) Refill Request Start: 06-07-2023 End: 06-07-2023 Office outpatient visit 25 minutes Clemente Negro 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 Work Phone: [facility] Comment on above: Essential hypertensi on (Primary Dx); Chronic bilateral low back pain with bilateral sciatica; Attention deficit hyperactivity disorder (ADHD), predominantly hyperactive type Start: 04-26-2023 Non-patient / Non-visit Dr. Jerry Sheets Work Phone: [facility] Work Phone: Start: 04-25-2023 Non-patient / Non-visit Dr. Jerry sharif [employer] Work Phone: [facility] Start: 04-24-2023 Non-patient / Non-visit Dr. Jerry Sheets Work Phone: [facility] Work Phone: Start: 04-24-2023 Non-patient / Non-visit Dr. Jerry sharif [employer] Work Phone: [facility] Start: 04-23-2023 Non-patient / Non-visit Dr. Jerry sharif [employer] Work Phone: [facility] Work Phone: Start: 04-23-2023 Non-patient / Non-visit Dr. Jerry sharif [employer] Work Phone: [facility] Start: 04-22-2023 Non-patient / Non-visit Dr. Jerry Sheets Work Phone: [facility] Start: 04-22-2023 Non-patient / Non-visit Dr. Jerry Sheets Work Phone: [facility] Work Phone: Start: 04-21-2023 End: 04-26-2023 Evaluation and management of inpatient Dr. Marvin Sheets Work Phone: [facility] Work Phone: Start: 04-21-2023 Non-patient / Non-visit Dr. Jerry Sheets Work Phone: [facility] Start: 04-20-2023 Telephone encounter Marvin carias MD Work Phone: [facility] Comment on above: Medication Request Start: 04-20-2023 Non-patient / Non-visit Dr. Jerry Sheets Work Phone: [facility] Start: 04-19-2023 Non-patient / Non-visit Dr. Jerry Sheets Work Phone: [facility] Start: 04-18-2023 Non-patient / Non-visit Dr. Jerry Sheets Work Phone: [facility] Start: 04-17-2023 End: 04-20-2023 Evaluation and management of inpatient Dr. Marvin Sheets Work Phone: [facility] Work Phone: Start: 04-17-2023 Non-patient / Non-visit Dr. Jerry Sheets Work Phone: [facility] Start: 04-14-2023 Rinku Gillis 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 Work Phone: [facility] Comment on above: Refill Request Start: 04-09-2023 End: 04-09-2023 Office outpatient visit 25 minutes Clemente Negro APRN.[facility] Work Phone: [facility] Comment on above: Attention deficit hy peractivity disorder (ADHD), predominantly hyperactive type (Primary Dx); Essential hypertension; Chronic bilateral low back pain with bilateral sciatica; Depression, unspecified depression type; Screening for lipid disorders Start: 04-03-2023 Refill Clemente PIERRE RN.[facility] Work Phone: [facility] Comment on above: Refill Request Start: 03-02-2023 Refill Clemente PIERRE RN.[facility] Work Phone: [facility] Comment on above: Refill Request Start: 03-01-2023 Refill Clemente PIERRE RN.[facility] Work Phone: [facility] Comment on above: Refill Request Start: 02-26-2023 Refill Clemente PIERRE RN.[facility] Work Phone: [facility] Comment on above: Refill Request Start: 01-22-2023 Refill Clemente PIERRE RN.[facility] Work Phone: [facility] Comment on above: Refill Request Start: 12-03-2022 End: 12-03-2022 Patient encounter procedure Marvin Sheets MD Work Phone: [facility] Comment on above: Attention deficit hy peractivity disorder (ADHD), predominantly hyperactive type (Primary Dx); Essential hypertension; Chronic bilateral low back pain with bilateral sciatica; Current mild episode of major depressive disorder, unspecified whether recurrent (HCC) Start: 11-21-2022 Refill Marvin crawford MD Work Phone: [facility] Comment on above: Refill Request Start: 11-10-2022 Refill Clemente PIERRE RN.[facility] Work Phone: [facility] Comment on above: Refill Request Start: 11-03-2022 End: 11-03-2022 Patient encounter procedure Marvin Sheets MD Work Phone: [facility] [place] Comment on above: Depression, unspecif ied depression type (Primary Dx); Tearfulness; Difficulty sleeping; Irritability and anger Start: 10-30-2022 ambulatory Marvin crawford MD Work Phone: [facility] [place] Comment on above: Depression Start: 10-30-2022 Telephone encounter Marvin carias MD Work Phone: [facility] [place] Comment on above: Nurse Triage Call Start: 10-30-2022 End: 10-30-2022 Patient encounter procedure Anna Pressley 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 Work Phone: [facility] Comment on above: Sore throat (Primary Dx); Rhinosinusitis Start: 09-18-2022 Refill Marvin crawford MD Work Phone: [facility] [place] Comment on above: Refill Request Start: 08-17-2022 Refill Marvin crawford MD Work Phone: [facility] [place] Comment on above: Refill Request Start: 08-10-2022 End: 08-10-2022 Subsequent hospital visit by physician [facility] [place] Work Phone: Radiology Comment on above: Acute cough [R05.1] Start: 08-10-2022 End: 08-10-2022 Office outpatient visit 25 minutes Imani Nieves PA-C Work Phone: [facility] Comment on above: Acute cough (Primary Dx) Start: 08-05-2022 Refill Clemnete PIERRE RN.PRODUCT PROMOTER SALES PERSON Work Phone: [facility] [place] Comment on above: Refill Request Start: 05-19-2022 End: 05-19-2022 Patient encounter procedure Marvin Sheets MD Work Phone: [facility] [place] Comment on above: Hypertension, essent ial (Primary Dx); Attention deficit hyperactivity disorder (ADHD), predominantly hyperactive type; Essential hypertension; Chronic bilateral low back pain with bilateral sciatica; Psoriasis; Need for influenza vaccination; Obesity, Class III, BMI 40-49.9 (morbid obesity) ([facility]) Start: 04-25-2022 Refill Clemente PIERRE RN.[facility] Work Phone: [facility] Comment on above: Refill Request Start: 04-09-2022 End: 04-09-2022 Patient encounter procedure Bridgett Yates APRN.[facility] Work Phone: [facility] Comment on above: Pharyngitis, unspeci fied etiology (Primary Dx) Start: 03-09-2022 Refill Clemente PIERRE RN.[facility] Work Phone: [facility] Comment on above: Refill Request Start: 02-06-2022 End: 02-06-2022 Patient encounter procedure Tiffanie Gillis APRN.[facility] Work Phone: [facility] Comment on above: Attention deficit hy peractivity disorder (ADHD), predominantly hyperactive type (Primary Dx); Screening for diabetes mellitus; Screening cholesterol level Start: 02-05-2022 Refill Marvin crawford MD Work Phone: [facility] Comment on above: Refill Request Start: 12-05-2021 Refill Marvin crawford MD Work Phone: [facility] Comment on above: Refill Request Start: 11-17-2021 Refill Clemente PIERRE RN.[facility] Work Phone: [facility] Comment on above: Refill Request Start: 11-06-2021 Refill Marvin crawford MD Work Phone: [facility] Comment on above: Refill Request Procedures Date Procedure Procedure Detail Performing Clinician Start: 03-29-2025 Lipid 1996 panel - S joseph or Plasma Tamera Rain CROWN PRESSER.PRODUCT PROMOTER SALES PERSON Work Phone: Start: 03-06-2025 X-ray of foot, three or more views Clemente Negro SENIOR OFFICE SUPPORT ASSISTANT [employer] Work Phone: Start: 02-28-2025 Anaerobic microbial culture Clemente Negro NP-C Work Phone: Start: 02-28-2025 Gram stain microscopy Jaimie Negro SENIOR OFFICE SUPPORT ASSISTANT [employer] Work Phone: Start: 02-28-2025 Microbial culture, routine Clemente Negro NP-C Work Phone: Start: 01-01-2025 Radex spine lumbosac ral 2/3 views Tamera Rain CROWN PRESSER.PRODUCT PROMOTER SALES PERSON Work Phone: Start: 12-19-2024 Adult depression scr eening assessment Imani Nieves PA-C Work Phone: Start: 09-18-2024 Lipid 1996 panel - S joseph or Plasma Marvin Sheets MD Work Phone: Start: 06-23-2024 Radex foot complete minimum 3 views Shivam Cunningham Work Phone: Start: 06-12-2024 PFIZER-BIONTECH COVI D-19 VACCINE AGE 12+ YR (COMIRNATY) Clemente Negro CROWN PRESSER.PRODUCT PROMOTER SALES PERSON Work Phone: Start: 12-06-2023 Adult depression scr eening assessment Clemente Negro CROWN PRESSER.PRODUCT PROMOTER SALES PERSON Work Phone: Start: 07-19-2023 Radex toe minimum 2 views Tangela Conteh CROWN PRESSER.PRODUCT PROMOTER SALES PERSON Work Phone: Start: 06-07-2023 Lipid 1996 panel - S joseph or Plasma Clemente Negro CROWN PRESSER.PRODUCT PROMOTER SALES PERSON Work Phone: Start: 04-26-[address] Marvin Sheets Work Phone: Start: 04-25-2023 Plain X-ray abdomen Dr. Marvin Sheets Work Phone: Start: 04-22-2023 CT of thorax, abdome n and pelvis with contrast Dr. Marvin Sheets Work Phone: Start: 04-22-2023 Diagnostic radiograp hy of abdomen Dr. Marvin Sheets Work Phone: Start: 04-22-2023 Plain chest X-ray Dr. Mandie Sheets Work Phone: Start: 04-21-2023 Exploratory,Laparosc opy,SB O (Not Applicable) Dr. Marvin Sheets Work Phone: Start: 04-21-2023 Plain X-ray abdomen Dr. Marvni Sheets Work Phone: Start: 04-21-2023 Computed tomography of abdomen and pelvis with intravenous contrast Dr. Marvin Sheets Work Phone: Start: 04-19-2023 Laparoscopic repair of hernia of anterior abdominal wall Dr. Marvin Sheets Work Phone: Start: 04-17-2023 Computed tomography of abdomen and pelvis with intravenous contrast Dr. Marvin Sheets Work Phone: Start: 10-30-2022 STREP A MOLECULAR (POC) Anna Pressley CROWN PRESSER.PRODUCT PROMOTER SALES PERSON Work Phone: Start: 08-10-2022 COVID WITH FLUA+B, ROUTINE Imani RUIZC Work Phone: Start: 08-10-2022 Radiologic exam ches t 2 views Imani Nieves PA-C Work Phone: Start: 05-19-2022 INFLUENZA VACCINE QUADRIVALENT 6 MO - 64 YRS IM Marvin Sheets MD Work Phone: Start: 04-09-2022 STREP A MOLECULAR (POC) Bridgett Yates CROWN PRESSER.PRODUCT PROMOTER SALES PERSON Work Phone: Start: 01-28-2021 Adult depression scr eening assessment Marvin Sheets MD Work Phone: Plan of Treatment Date Care Activity Detail Author Start: 03-29-2030 Lipid panel Lipid Screening [facility] Start: 09-18-2029 Lipid panel Lipid Screening [facility] Start: 06-07-2028 Lipid 1996 panel - Serum or Plasma Lipid Screening [facility] Start: 06-07-2028 Lipid panel Lipid Screening [facility] Start: 03-29-2026 Annual PCP Team Hand Iii Cutter tg Disease Visit Annual PCP Team Chronic Disease Visit [facility] Start: 01-16-2026 Annual PCP Team Hand Iii Cutter tg Disease Visit Annual PCP Team Chronic Disease Visit [facility] Start: 01-01-2026 Annual PCP Team Hand Iii Cutter tg Disease Visit Annual PCP Team Chronic Disease Visit [facility] Start: 12-19-2025 Annual PCP Team Hand Iii Cutter tg Disease Visit Annual PCP Team Chronic Disease Visit [facility] Start: 12-19-2025 Anxiety Screening Anxiety Screening [facility] Start: 12-19-2025 Depression Screening Depression Scre ening [facility] Start: 12-02-2025 Urine microalbumin profile [facility] Start: 09-18-2025 Annual PCP Team Hand Iii Cutter tg Disease Visit Annual PCP Team Chronic Disease Visit [facility] Start: 07-20-2025 End: 07-20-2025 Patient encounter procedure 07/20/2025 10:40 AM EST Office Visit Family [facility] [address] [place], [place] [id number] Clemente Negro 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 [address] [place] [address] 6 mo f/u Family [facility] Comment on above: 6 mo f/u Start: 07-17-2025 Annual PCP Team Hand Iii Cutter tg Disease Visit Annual PCP Team Chronic Disease Visit [facility] Start: 06-12-2025 Annual PCP Team Hand Iii Cutter tg Disease Visit Annual PCP Team Chronic Disease Visit [facility] Start: 05-10-2025 Annual PCP Team Hand Iii Cutter tg Disease Visit Annual PCP Team Chronic Disease Visit [facility] Start: 04-02-2025 Influenza vaccination Influenza Vacc ine (#1) [facility] Start: 03-29-2025 End: 06-28-2025 25-hydroxyvitamin D3 [Mass/volume] in Serum or Plasma [facility] Comment on above: Expected: 03/29/2025 , Expires: 06/28/2025 Start: 03-29-2025 End: 06-28-2025 Cobalamin (Vitamin B12) [Mass/volume] in Serum or Plasma [facility] Comment on above: Expected: 03/29/2025 , Expires: 06/28/2025 Start: 03-29-2025 End: 06-28-2025 Comprehensive metabolic 2000 panel - Serum or Plasma [facility] Comment on above: Expected: 03/29/2025 , Expires: 06/28/2025 Start: 03-29-2025 End: 06-28-2025 Ferritin [Mass/volume] in Serum or Plasma [facility] Comment on above: Expected: 03/29/2025 , Expires: 06/28/2025 Start: 03-29-2025 End: 06-28-2025 Hemoglobin A1c in Blood [facility] Work Phone: Comment on above: Expected: 03/29/2025 , Expires: 06/28/2025 Start: 03-29-2025 End: 06-28-2025 Iron and Iron binding capacity panel - Serum or Plasma [facility] Comment on above: Expected: 03/29/2025 , Expires: 06/28/2025 Start: 03-29-2025 End: 06-28-2025 LIPID PANEL, NONFASTING [facility] Comment on above: Expected: 03/29/2025 , Expires: 06/28/2025 Start: 03-29-2025 End: 06-28-2025 Magnesium [Mass/volume] in Serum or Plasma [facility] Comment on above: Expected: 03/29/2025 , Expires: 06/28/2025 Start: 03-29-2025 End: 06-28-2025 NICOTINE/COTININE [facility] Comment on above: Expected: 03/29/2025 , Expires: 06/28/2025 Start: 03-29-2025 End: 06-28-2025 Urate [Mass/volume] in Serum or Plasma [facility] Comment on above: Expected: 03/29/2025 , Expires: 06/28/2025 Start: 03-20-2025 End: 03-20-2025 Patient encounter procedure 03/20/2025 9:20 AM EDT Office Visit Family [facility] [address] [place] [id number] Marvin Sheets MD [address] [place] [id number] 3 month f/u Family [facility] Comment on above: 3 month f/u Start: 03-06-2025 Annual PCP Team Hand Iii Cutter tg Disease Visit Annual PCP Team Chronic Disease Visit [facility] Start: 02-28-2025 Source specific culture [facility] Start: 02-28-2025 Anaerobic Culture Anaerobic Culture [facility] Start: 02-28-2025 Microbial culture, routine Wound Culture [facility] Start: 02-24-2025 Annual PCP Team Hand Iii Cutter tg Disease Visit Annual PCP Team Chronic Disease Visit [facility] Start: 01-30-2025 Annual PCP Team Hand Iii Cutter tg Disease Visit Annual PCP Team Chronic Disease Visit [facility] Start: 01-30-2025 BP Controlled (<130/80) BP Controlle d (<130/80) [facility] Start: 01-16-2025 End: 01-16-2025 Patient encounter procedure 01/16/2025 11:40 AM EDT Office Visit [facility] [place] [address] [place], [place] [phone] Clemente Negro 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 [address] [place] [address] 4 week F/U-BP check Family [facility] Comment on above: 4 week F/U-BP check Start: 01-01-2025 End: 04-02-2025 Magnesium [Mass/volume] in Serum or Plasma [facility] Work Phone: Comment on above: Expected: 01/01/2025 , Expires: 04/02/2025 Start: 12-19-2024 End: 03-20-2025 CBC panel - Blood by Automated count COMPLETE BLOOD COUNT Lab Routine Obesity, Class III, BMI 40-49.9 (morbid obesity) Expected: 12/19/2024, Expires: 03/20/2025 [facility] Comment on above: Expected: 12/19/2024 , Expires: 03/20/2025 Start: 12-19-2024 End: 03-20-2025 Comprehensive metabolic 2000 panel - Serum or Plasma COMPREHENSIVE METABOLIC PANEL Lab Routine Obesity, Class III, BMI 40-49.9 (morbid obesity) Expected: 12/19/2024, Expires: 03/20/2025 [facility] Comment on above: Expected: 12/19/2024 , Expires: 03/20/2025 Start: 12-19-2024 End: 03-20-2025 Hemoglobin A1c in Blood HEMOGLOBIN A1C Lab Routine Obesity, Class III, BMI 40-49.9 (morbid obesity) Expected: 12/19/2024, Expires: 03/20/2025 [facility] Work Phone: Comment on above: Expected: 12/19/2024 , Expires: 03/20/2025 Start: 12-18-2024 End: 12-18-2024 Patient encounter procedure 12/18/2024 8:00 AM EDT Office Visit [facility] [place] [address] [facility] [place] [address] Clemente Negro 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 [address] [place] [address] 3 mo f/u [facility] [place] Comment on above: 3 mo f/u Start: 12-05-2024 Annual PCP Team Hand Iii Cutter tg Disease Visit Annual PCP Team Chronic Disease Visit [facility] Start: 12-05-2024 Anxiety Screening Anxiety Screening [facility] Start: 12-05-2024 [facility] Start: 09-18-2024 End: 09-18-2024 Patient encounter procedure 09/18/2024 8:00 AM EST Office Visit [facility] [address] [facility] [place] [address] Clemente Negro, CURTIS.PRODUCT PROMOTER SALES PERSON [address] [facility] [place] [phone] 3 month follow up [facility] [place] Comment on above: 3 month follow up Start: 09-10-2024 Annual PCP Team Hand Iii Cutter tg Disease Visit Annual PCP Team Chronic Disease Visit [facility] Start: 09-01-2024 End: 09-01-2024 Patient encounter procedure 09/01/2024 9:30 AM EST Office Visit Podiatry [address] [place], [place] [address] Shivam Cunningham [address] [address] 4 week follow up L foot Great toe ulcer Podiatry Comment on above: 4 week follow up L f oot Great toe ulcer Start: 08-12-2024 End: 11-11-2024 Comprehensive metabolic 2000 panel - Serum or Plasma COMPREHENSIVE METABOLIC PANEL Lab Routine Prediabetes Expected: 08/12/2024, Expires: 11/11/2024 [facility] Work Phone: Comment on above: Expected: 08/12/2024 , Expires: 11/11/2024 Start: 08-12-2024 End: 11-11-2024 Hemoglobin A1c in Blood HEMOGLOBIN A1C Lab Routine Prediabetes Expected: 08/12/2024, Expires: 11/11/2024 [facility] Comment on above: Expected: 08/12/2024 , Expires: 11/11/2024 Start: 08-12-2024 End: 11-11-2024 Lipid 1996 panel - Serum or Plasma LIPID PANEL BASIC Lab Routine Hyperlipidemia, unspecified hyperlipidemia type Expected: 08/12/2024, Expires: 11/11/2024 [facility] Comment on above: Expected: 08/12/2024 , Expires: 11/11/2024 Start: 08-04-2024 End: 08-04-2024 Patient encounter procedure 08/04/2024 1:00 PM EST Office Visit Podiatry [address] [place] [address] Shivam Cunningham [address] [address] 4 week follow up Podiatry Comment on above: 4 week follow up Start: 07-07-2024 End: 07-07-2024 Patient encounter procedure Podiatry Comment on above: 2 week follow up gre at toe ulcer Start: 06-23-2024 End: 06-23-2024 Patient encounter procedure 06/23/2024 8:00 AM EST Office Visit Podiatry [address] [place] [phone] Shivam Cunningham [address] [place] [address] 2 week follow up bilateral hallux ulcer Podiatry Comment on above: 2 week follow up stiven ateral hallux ulcer Start: 06-12-2024 End: 06-12-2024 Patient encounter procedure 06/12/2024 8:40 AM EST Office Visit Family [facility] [place] [address] [place] [address] Clemente Negro 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 [address] [place] [address] 6 month follow up Family [facility] Comment on above: 6 month follow up Start: 06-07-2024 Annual PCP Team Hand Iii Cutter tg Disease Visit Annual PCP Team Chronic Disease Visit [facility] Start: 06-06-2024 End: 06-06-2024 Patient encounter procedure 06/06/2024 9:45 AM EST Office Visit Podiatry [address] [place] [address] Shivam Cunningham [address] [address] left foot pain Podiatry Comment on above: left foot pain Start: 05-10-2024 End: 08-09-2024 Comprehensive metabolic 2000 panel - Serum or Plasma [facility] Work Phone: Comment on above: Expected: 05/10/2024 , Expires: 08/09/2024 Start: 05-10-2024 End: 08-09-2024 Hemoglobin A1c in Blood [facility] Comment on above: Expected: 05/10/2024 , Expires: 08/09/2024 Start: 05-10-2024 End: 08-09-2024 Thyrotropin [Units/volume] in Serum or Plasma [facility] Comment on above: Expected: 05/10/2024 , Expires: 08/09/2024 Start: 05-10-2024 End: 08-09-2024 Thyroxine (T4) free [Mass/volume] in Serum or Plasma [facility] Comment on above: Expected: 05/10/2024 , Expires: 08/09/2024 Start: 04-24-2024 End: 04-24-2024 Patient encounter procedure 04/24/2024 8:15 AM EDT Office Visit Podiatry [address] [place] [address] Shivam Cunningham [address] [place] [address] 4 Week follow up ulcer Podiatry Comment on above: [address] [facility] Start: 04-09-[address] TEAM TWO WAY RADIO TECHNICIAN TG DISEASE VISIT ANNUAL PCP TEAM CHRONIC DISEASE VISIT [facility] Start: 04-02-2024 Covid-19 Vaccine ( season) Covid-19 Vaccine () [facility] Start: 04-02-2024 Influenza vaccination Influenza Vacc ine (#1) [facility] Start: 03-23-2024 End: 03-23-2024 Patient encounter procedure 03/23/2024 10:00 AM EDT Office Visit Podiatry [address] [place] [address] Shivam Cunningham [address] [place] [address] 3 Week follow up ulcer Podiatry Comment on above: [address] [facility] Start: 03-02-2024 End: 03-02-2024 Patient encounter procedure 03/02/2024 1:30 PM EDT Office Visit Podiatry [address] [place] [address] Shivam Cunningham [address] [place] [address] Blister of toe, left, subsequent encounter [S90.425D] Podiatry Comment on above: Blister of toe, left , subsequent encounter [S90.425D] Start: 12-08-2023 End: 03-08-2024 Comprehensive metabolic 2000 panel - Serum or Plasma COMP METABOLIC PANEL Lab Routine Elevated liver enzymes Expected: 12/08/2023 (Approximate), Expires: 03/08/2024 [facility] Work Phone: Comment on above: Expected: 12/08/2023 (Approximate), Expires: 03/08/2024 Start: 12-06-2023 End: 12-06-2023 Patient encounter procedure 12/06/2023 8:40 AM EDT Office Visit Family [facility] [place] [address] [place] [address] Clemente Negro 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 [address] [place] [address] 6 month follow up [facility] [place] Comment on above: 6 month follow up Start: 12-04-[address]23 [address] TEAM TWO WAY RADIO TECHNICIAN TG DISEASE VISIT ANNUAL PCP TEAM CHRONIC DISEASE VISIT [facility] Start: 11-04-2023 ANNUAL PCP TEAM TWO WAY RADIO TECHNICIAN TG DISEASE VISIT ANNUAL PCP TEAM CHRONIC DISEASE VISIT [facility] Start: 08-02-2023 Behavioral Health Screening Behavioral Health Screening [facility] Start: 08-02-2023 Depression Assessment Depression Ass essment [facility] Start: 06-09-2023 End: 09-08-2023 Hemoglobin A1c in Blood HGB A1C Lab Routine Elevated glucose Expected: 06/09/2023, Expires: 09/08/2023 [facility] Work Phone: Comment on above: Expected: 06/09/2023 , Expires: 09/08/2023 Start: 05-19-2023 ANNUAL PCP TEAM TWO WAY RADIO TECHNICIAN TG DISEASE VISIT ANNUAL PCP TEAM CHRONIC DISEASE VISIT [facility] Start: 04-26-2023 Patient discharge [facility] Start: 04-25-2023 Elevation of head of bed [facility] Start: 04-25-2023 Nil by mouth [facility] Start: 04-22-2023 Nil by mouth [facility] Start: 04-22-2023 [facility] Start: 04-22-2023 Bacteria identified in Blood by Culture Blood Culture [facility] Start: 04-22-2023 Wound care [facility] Start: 04-22-2023 End: 04-22-2023 Blood culture [facility] Start: 04-22-2023 End: 04-22-2023 [facility] Start: 04-22-2023 Consultation [facility] Start: 04-22-2023 Inhalation therapy procedure [facility] Start: 04-21-2023 Following clinical pathway protocol [facility] Start: 04-21-2023 Measuring intake and output [facility] Start: 04-21-2023 Elevation of head of bed [facility] Start: 04-21-2023 Insertion of nasogastric tube [facility] Start: 04-21-2023 Admission procedure [facility] Start: 04-21-2023 [facility] Start: 04-21-2023 Patient referral to dietitian [facility] Start: 04-20-2023 Patient discharge [facility] Start: 04-19-2023 Preoperative care [facility] Start: 04-17-2023 Application of intermittent pneumatic compression device [facility] Start: 04-17-2023 Ambulation without limitation [facility] Start: 04-17-2023 Measuring intake and output [facility] Start: 04-17-2023 Vital signs measurements [facility] Start: 04-17-2023 [facility] Start: 04-17-2023 End: 04-17-2023 Following clinical pathway protocol [facility] Start: 04-17-2023 Admission procedure [facility] Start: 04-17-2023 Urinalysis complete panel - Urine [facility] Start: 04-17-2023 [facility] Start: 04-09-2023 End: 06-09-2023 Comprehensive metabolic 2000 panel - Serum or Plasma COMP METABOLIC PANEL Lab Routine Essential hypertension Expected: 04/09/2023, Expires: 06/09/2023 [facility] Work Phone: Comment on above: Expected: 04/09/2023 , Expires: 06/09/2023 Start: 04-09-2023 End: 06-09-2023 Lipid 1996 panel - Serum or Plasma LIPID PANEL BASIC Lab Routine Screening for lipid disorders Expected: 04/09/2023, Expires: 06/09/2023 [facility] Work Phone: Comment on above: Expected: 04/09/2023 , Expires: 06/09/2023 Start: 04-02-2023 Influenza vaccination [facility] Start: 02-06-2023 ANNUAL PCP TEAM TWO WAY RADIO TECHNICIAN TG DISEASE VISIT ANNUAL PCP TEAM CHRONIC DISEASE VISIT [facility] Start: 01-10-2023 Urine microalbumin profile DTAP,TDAP,TD (8 - Td or Tdap) [facility] Start: 10-19-2022 Lipid 1996 panel - Serum or Plasma Lipid Screening [facility] Start: 10-19-2022 LIPID SCREEN LIPID SCREEN [facility] Start: 08-02-2022 DEPRESSION ASSESSMENT DEPRESSION ASS ESSMENT [facility] Start: 04-02-2022 Influenza vaccination [facility] Start: 02-06-2022 End: 04-08-2022 Comprehensive metabolic 2000 panel - Serum or Plasma COMP METABOLIC PANEL Lab Routine Screening for diabetes mellitus Expected: 02/06/2022, Expires: 04/08/2022 [facility] Work Phone: Comment on above: Expected: 02/06/2022 , Expires: 04/08/2022 Start: 02-06-2022 End: 04-08-2022 Hemoglobin A1c in Blood HGB A1C Lab Routine Screening for diabetes mellitus Expected: 02/06/2022, Expires: 04/08/2022 [facility] Work Phone: Comment on above: Expected: 02/06/2022 , Expires: 04/08/2022 Start: 02-06-2022 End: 04-08-2022 Lipid 1996 panel - Serum or Plasma LIPID PANEL BASIC Lab Routine Screening cholesterol level Expected: 02/06/2022, Expires: 04/08/2022 [facility] Work Phone: Comment on above: Expected: 02/06/2022 , Expires: 04/08/2022 Start: 02-06-2022 End: 04-08-2022 PAIN PANEL, UR QUANT PAIN PANEL, UR QUANT Lab Routine Attention deficit hyperactivity disorder (ADHD), predominantly hyperactive type Expected: 02/06/2022, Expires: 04/08/2022 [facility] Work Phone: Comment on above: Expected: 02/06/2022 , Expires: 04/08/2022 Start: 02-06-2022 End: 04-08-2022 TOX SCREEN ROUT UR TOX SCREEN ROUT UR Lab Routine Attention deficit hyperactivity disorder (ADHD), predominantly hyperactive type Expected: 02/06/2022, Expires: 04/08/2022 [facility] Work Phone: Comment on above: Expected: 02/06/2022 , Expires: 04/08/2022 Start: 01-28-2022 Adult depression screening assessment [facility] [facility] Start: 01-28-2022 ANNUAL PCP TEAM TWO WAY RADIO TECHNICIAN TG DISEASE VISIT ANNUAL PCP TEAM CHRONIC DISEASE VISIT [facility] Start: 01-28-2022 BP CONTROLLED (<130/80) BP CONTROLLE D (<130/80) [facility] Start: 08-29-2021 COVID-19 VACCINE (4 - Booster for Pfizer series) COVID-19 VACCINE (4 - Booster for Pfizer series) [facility] Start: 08-29-2021 COVID-19 VACCINE (4 - Pfizer series) COVID-19 VACCINE (4 - Pfizer series) [facility] Start: 06-02-2021 COVID-19 VACCINE (3 - Booster for Pfizer series) COVID-19 VACCINE (3 - Booster for Pfizer series) [facility] Start: 10-19-2014 HPV Vaccine (1 - 3-d ose SCDM series) HPV Vaccine (1 - 3-dose SCDM series) [facility] Bacteria identified in Unspecified specimen by Anaerobe culture [facility] Fungus identified in Unspecified specimen by Culture FUNGAL SCREEN Microbiology Routine Pharyngitis, unspecified etiology Ordered: 04/09/2022 [facility] Work Phone: Comment on above: Ordered: 04/09/2022 Hemoglobin.gastroint est inal.lower [Presence] in Stool by Immunoassay IMMUNOCHEMICAL FECAL OCCULT BLOOD TEST Lab Routine Iron deficiency anemia due to chronic blood loss Ordered: 03/30/2025 [facility] Work Phone: Comment on above: Ordered: 03/30/2025 Patient referral [facility] Work Phone: SURGICAL PATHOLOGY SURGICAL PATH OLOGY Lab Routine Ulcer of toe of left foot, limited to breakdown of skin (HCC) 06/06/2024 10:44 AM EST [facility] XR Foot - bilateral AP and Lateral and oblique XR FOOT GENERAL 3V AP/LAT/OBL BILATERAL Radiology Routine Ulcer of toe of left foot, limited to breakdown of skin (HCC) 06/06/2024 11:31 AM EST [facility] Work Phone: End: 07-06-2025 XR Foot - bilateral AP and Lateral and oblique XR FOOT GENERAL 3V AP/LAT/OBL BILATERAL Radiology Routine Ulcer of toe of left foot, limited to breakdown of skin (HCC) 1 Occurrences starting 06/06/2024 until 07/06/2025 [facility] Work Phone: Comment on above: 1 Occurrences starti ng 06/06/2024 until 07/06/2025 [facility] Immunizations Immunization Date Immunization Notes Care Provider Ismael sanches 06-12-2024 COVID-19 vaccine, ag e 12+ yr (T[employer] [facility]) Clemente Negro CROWN PRESSER.PRODUCT PROMOTER SALES PERSON Work Phone: [facility] 06-12-2024 influenza, seasonal, injectable Clemente Negro CROWN PRESSER.PRODUCT PROMOTER SALES PERSON Work Phone: [facility] 06-12-2024 influenza virus vaccine, unspecified formulation Tamera Rain CROWN PRESSER.PRODUCT PROMOTER SALES PERSON Work Phone: [facility] 05-18-2023 COVID-19 vaccine, ag e 12+ yr, season (MODERNA) Clemente Negro CROWN PRESSER.PRODUCT PROMOTER SALES PERSON Work Phone: [facility] 05-18-2023 Seasonal, quadrivalent, recombinant, injectable influenza vaccine, preservative free Clemente Sruthi CROWN PRESSER.PRODUCT PROMOTER SALES PERSON Work Phone: [facility] 05-18-2023 influenza virus vaccine, unspecified formulation Clemente Sruthi CROWN PRESSER.PRODUCT PROMOTER SALES PERSON Work Phone: [facility] 05-19-2022 influenza, injectabl e, quadrivalent, contains preservative Marvin Sheets MD Work Phone: [facility] 05-19-2022 influenza virus vaccine, unspecified formulation Tiffanie Gillis CROWN PRESSER.PRODUCT PROMOTER SALES PERSON Work Phone: [facility] 07-04-2021 COVID-19 original vaccine, age 12+ yr, monovalent (PFIZER-BIONTECH - PURPLE TOP) Clemente Negro CROWN PRESSER.PRODUCT PROMOTER SALES PERSON Work Phone: [facility] 07-04-2021 influenza, injectabl e, quadrivalent, preservative free Clemente Negro CROWN PRESSER.PRODUCT PROMOTER SALES PERSON Work Phone: [facility] 12-31-2020 COVID-19 vaccine, ag e 12+ yr (PFIZER-BIONTECH - PURPLE TOP) Marvin Sheets MD Work Phone: [facility] Work Phone: 12-10-2020 COVID-19 vaccine, ag e 12+ yr (PFIZER-BIONTECH - PURPLE TOP) Marvin Sheets MD Work Phone: [facility] Work Phone: 12-03-2015 tetanus toxoid, reduced diphtheria toxoid, and acellular pertussis vaccine, adsorbed Marvin Sheets MD Work Phone: [facility] 01-10-2013 tetanus toxoid, reduced diphtheria toxoid, and acellular pertussis vaccine, adsorbed Marvin Sheets MD Work Phone: [facility] 04-27-2006 hepatitis B vaccine, pediatric or pediatric/adolescent dosage Marvin Sheets MD Work Phone: [facility] Work Phone: 08-17-2002 diphtheria and tetan us toxoids, adsorbed for pediatric use Marvin Sheets MD Work Phone: [facility] Work Phone: 08-17-2002 hepatitis B vaccine, pediatric or pediatric/adolescent dosage Marvin Sheets MD Work Phone: [facility] Work Phone: 03-18-2000 hepatitis B vaccine, pediatric or pediatric/adolescent dosage Marvin Sheets MD Work Phone: [facility] Work Phone: 03-18-2000 measles, mumps and rubella virus vaccine Marvin Sheets MD Work Phone: [facility] Work Phone: 12-06-1992 diphtheria, tetanus toxoids and pertussis vaccine Marvin Sheets MD Work Phone: [facility] Work Phone: 12-06-1992 trivalent poliovirus vaccine, live, oral Marvin Sheets MD Work Phone: [facility] Work Phone: 12-06-1992 tuberculin skin test ; purified protein derivative solution, intradermal Marvin Sheets MD Work Phone: [facility] 11-14-1991 Chicken Pox (disease) Marvin bojorquez MD Work Phone: [facility] Work Phone: 05-07-1989 diphtheria, tetanus toxoids and pertussis vaccine Marvin Sheets MD Work Phone: [facility] Work Phone: 05-07-1989 haemophilus influenz ae type b vaccine, PRP-D conjugate Marvin Sheets MD Work Phone: [facility] Work Phone: 05-07-1989 trivalent poliovirus vaccine, live, oral Marvin Sheets MD Work Phone: [facility] Work Phone: 01-28-1989 measles, mumps and rubella virus vaccine Marvin Sheets MD Work Phone: [facility] Work Phone: 10-21-1988 tuberculin skin test ; purified protein derivative solution, intradermal Marvin Sheets MD Work Phone: [facility] 04-30-1988 diphtheria, tetanus toxoids and pertussis vaccine Marvin Sheets MD Work Phone: [facility] Work Phone: 02-25-1988 diphtheria, tetanus toxoids and pertussis vaccine Marvin Sheets MD Work Phone: [facility] Work Phone: 02-25-1988 trivalent poliovirus vaccine, live, oral Marvin Sheets MD Work Phone: [facility] Work Phone: 1987 diphtheria, tetanus toxoids and pertussis vaccine Marvin Sheets MD Work Phone: [facility] Work Phone: 1987 trivalent poliovirus vaccine, live, oral Marvin Sheets MD Work Phone: [facility] Work Phone: Payers Date Payer Category Payer Self-pay [id number] 2017 [employer] BLUE CARD PPO OOS [id number] 2017 Unknown ANTHEM BLUE CARD PPO OOS [id number] 2017-Present [phone] [place] [address] PPO [id number] 2017 Unknown [employer]M BLUE CARD PPO OOS [id number] 2017-Present [phone] [place] [address] PPO [id number] 2017 Unknown [id number] Unknown [id number] Unknown [id number] Unknown [id number] Unknown [id number] Unknown [id number] Social History Date Type Detail Facility Start: 05-19-2016 End: 05-10-2024 Tobacco smoking status NHIS Ex-smoker [facility] Start: 05-19-2016 End: 12-03-2022 Cigarettes smoked current (pack per day) - Reported 1 [facility] Work Phone: Start: 05-19-2016 End: 05-10-2024 Tobacco use and exposure Former smokeless tobacco user [facility] History of tobacco use Chews Tobacco [facility] Start: 01-28-2021 End: 03-29-2025 Alcohol intake Current non-drinker of alcohol (finding) [facility] Start: 1985 Sex Assigned At Not on file [facility] Start: 01-27-2022 End: 05-19-2022 Exposure to SARS-CoV-2 (event) Not sure [facility] History of tobacco use Current smoker [facility] History of tobacco use Cigarette Smoker [facility] Start: 12-03-2022 End: 04-08-2023 Tobacco use panel [facility] Work Phone: Start: 07-03-2012 Adult Depression Scr eening Assessment 6 [facility] Work Phone: Do you belong to any clubs or organizations such as cheondoism groups, unions, fraternal or athletic groups, or school groups? No [facility] Are you now , , , , never or living with a partner? Never [facility] How often to you hav e a drink containing alcohol? Never [facility] Do you feel stress - tense, restless, nervous, or anxious, or unable to sleep at night because your mind is troubled all the time - these days [OSQ] To some extent [facility] (I/We) worried whecassi er (my/our) food would run out before (I/we) got money to buy more. Never true [facility] Start: 04-17-2023 End: 04-21-2023 Tobacco smoking status NHIS Unknown if ever smoked [facility] Start: 1985 Sex Assigned At Male [facility] Medical Equipment Procedure Code Equipment Code Equipment Origin al Text Equipment Identifier Dates Repair, hernia, ventral or umbilical, laparoscopic Extra-gynaecologic al surgical mesh, composite-polymer [id number] FDA Start: 04-19-2023 Repair, hernia, ventral or umbilical, laparoscopic Endoscopic manual linear stapler [id number] ALICIA FDA Start: 04-19-2023 Surgical staple loading unit, cutting [id number] FDA Start: 04-21-2023 Open-surgery manual linear cutting stapler, single-use [id number] FDA Start: 04-21-2023 Goals Date Patient Goal Desired Activity /State Functional Status Date Assessment Result Facility 04-26-2023 Functional status Ambulates;Bath room Privilege [facility] Work Phone: 04-20-2023 Functional status Chair [facility] Work Phone: 10-16-2014 Are you deaf, or do you have serious difficulty hearing No 10/16/2014 8:44 AM Miroslava Doyle LPN No [facility] 10-16-2014 Are you blind, or do you have serious difficulty seeing, even when wearing glasses No 10/16/2014 8:44 AM Miroslava Doyle LPN No [facility] 10-16-2014 Do you have serious difficulty walking or climbing stairs No 10/16/2014 8:44 AM Miroslava Doyle LPN No [facility] 10-16-2014 Do you have difficul ty dressing or bathing No 10/16/2014 8:44 AM EDT Miroslava Perez LPN No [facility] 10-16-2014 Because of a physica l, mental, or emotional condition, do you have difficulty doing errands alone such as visiting a physician's office or shopping Yes 10/16/2014 8:44 AM EDT Miroslava Perez LPN Yes [facility] Mental Status Date Assessment Result Facility 04-25-2023 Cognitive function Voice/Name [facility] Work Phone: 04-20-2023 Cognitive function Level Of Cons ciousness Awake;Alert;Appropriate;Fol lows Commands [facility] Work Phone: 04-20-2023 Cognitive function Voice/Name [facility] Work Phone: 10-16-2014 Because of a physica l, mental, or emotional condition, do you have serious difficulty concentrating, remembering, or making decisions Yes 10/16/2014 8:44 AM EDT Miroslava Perez LPN Yes [facility] Clinical Notes 02-17-2007 to 04-05-2025 Telephone Encounter - Myrna Liu RN - 04/05/2025 10:20 AM EDTTelephone Encounter - Myrna Liu RN - 04/05/2025 10:20 AM EDTTelephone Encounter - Amrita Crawford MA - 04/05/2025 9:51 AM EDT Note Date & Type Note Facility 04-05-2025 Telephone encounter Note Patient returning call and provider's message was reviewed with pt and he verbalized understanding. Patient aware that a MC message was also sent to him that includes a copy of the provider's message. Myrna Liu RN [facility] 04-05-2025 Miscellaneous Notes Patient returning call and provider's message was reviewed with pt and he verbalized understanding. Patient aware that a MC message was also sent to him that includes a copy of the provider's message. Myrna Liu, RN Left message for patient to return call or read [employer] result note Amrita Crawford Ma Pre-op clearance form faxed [facility] to [facility]. Sightly message sent to patient. Amrita Crawford MA April 03, 2025 11:19 AM ----- Message from Tamera Rain sent at 04/03/2025 8:16 AM EDT ----- Nicotine level was high. Vitamin D level was slightly low. You may want to consider qlkd-kar-siuhmfn vitamin D3-2000 IUs daily. Uric acid level was 5.8, doubt any gout. LDL, bad cholesterol, is high at 129. watch the saturated fats in your diet by eliminating fried foods and choosing only lean meat/skim dairy products. Your HDL, good cholesterol, is a little low. Try to add into your diet whole grains, purple grape juice, nuts or peanut butter, and soy. That will raise your protection against heart disease. Blood counts indicate iron deficient anemia. Starting ferrous sulfate 325 mg daily. Please send stool for checking for blood loss. Avoid nonsteroidal anti-inflammatories. ----- Message ----- From: Lab, Background User Sent: 03/29/2025 7:26 PM EDT To: Tamera Rain 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 Nicotine level was high. Vitamin D level was slightly low. You may want to consider maye-lru-xuirfxa vitamin D3-2000 IUs daily. Uric acid level was 5.8, doubt any gout. LDL, bad cholesterol, is high at 129. watch the saturated fats in your diet by eliminating fried foods and choosing only lean meat/skim dairy products. Your HDL, good cholesterol, is a little low. Try to add into your diet whole grains, purple grape juice, nuts or peanut butter, and soy. That will raise your protection against heart disease. Blood counts indicate iron deficient anemia. Starting ferrous sulfate 325 mg daily. Please send stool for checking for blood loss. Avoid nonsteroidal anti-inflammatories. You have an iron deficient anemia. I am assuming that you have been taking a lot of nonsteroidal medication (meloxicam) for the discomfort in your foot. That may be causing irritation to your stomach. I am going to put you on pantoprazole 40 mg first thing in the morning before you eat or drink anything for 90 days. I am also going to add ferrous sulfate, iron, 325 mg daily. Take it with something rich in vitamin C. We may need to refer you to GI for upper and lower scopes. I am ordering a stool card to check for blood loss. Uric acid level was 5.8 indicating no gout. Vitamin D is low, you could consider adding cnxl-ydg-oaqhiad vitamin D3 2000 units if you want. LDL, bad cholesterol, is high. Watch the saturated fats in your diet by eliminating fried foods and choosing only lean meat/skim dairy products. Your HDL, good cholesterol, is a little low. Try to add into your diet whole grains, purple grape juice, nuts or peanut butter, and soy. That will raise your protection against heart disease. documented in this encounter [facility] 04-05-2025 Telephone encounter Note Left message for patient to return call or read [employer] result note Amrita Crawford Ma [facility] 04-03-2025 Telephone encounter Note Pre-op clearance form faxed back to [facility]. Sightly message sent to patient. Amrita Crawford MA April 03, 2025 11:19 AM [facility] 04-03-2025 Telephone encounter Note ----- Message from Tamera Rain sent at 04/03/2025 8:16 AM EDT ----- Nicotine level was high. Vitamin D level was slightly low. You may want to consider ysij-zej-pzmxkyu vitamin D3-2000 IUs daily. Uric acid level was 5.8, doubt any gout. LDL, bad cholesterol, is high at 129. watch the saturated fats in your diet by eliminating fried foods and choosing only lean meat/skim dairy products. Your HDL, good cholesterol, is a little low. Try to add into your diet whole grains, purple grape juice, nuts or peanut butter, and soy. That will raise your protection against heart disease. Blood counts indicate iron deficient anemia. Starting ferrous sulfate 325 mg daily. Please send stool for checking for blood loss. Avoid nonsteroidal anti-inflammatories. ----- Message ----- From: Lab, Background User Sent: 03/29/2025 7:26 PM EDT To: Tamera Rain 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 [facility] 04-03-2025 Progress note Formatting of t his note might be different from the original. Nicotine level was high. Vitamin D level was slightly low. You may want to consider qmxd-rtn-hkhavcl vitamin D3-2000 IUs daily. Uric acid level was 5.8, doubt any gout. LDL, bad cholesterol, is high at 129. watch the saturated fats in your diet by eliminating fried foods and choosing only lean meat/skim dairy products. Your HDL, good cholesterol, is a little low. Try to add into your diet whole grains, purple grape juice, nuts or peanut butter, and soy. That will raise your protection against heart disease. Blood counts indicate iron deficient anemia. Starting ferrous sulfate 325 mg daily. Please send stool for checking for blood loss. Avoid nonsteroidal anti-inflammatories. [facility] 03-30-2025 Progress note Formatting of t his note might be different from the original. You have an iron deficient anemia. I am assuming that you have been taking a lot of nonsteroidal medication (meloxicam) for the discomfort in your foot. That may be causing irritation to your stomach. I am going to put you on pantoprazole 40 mg first thing in the morning before you eat or drink anything for 90 days. I am also going to add ferrous sulfate, iron, 325 mg daily. Take it with something rich in vitamin C. We may need to refer you to GI for upper and lower scopes. I am ordering a stool card to check for blood loss. Uric acid level was 5.8 indicating no gout. Vitamin D is low, you could consider adding zwti-svm-agltbmu vitamin D3 2000 units if you want. LDL, bad cholesterol, is high. Watch the saturated fats in your diet by eliminating fried foods and choosing only lean meat/skim dairy products. Your HDL, good cholesterol, is a little low. Try to add into your diet whole grains, purple grape juice, nuts or peanut butter, and soy. That will raise your protection against heart disease. T [facility] 03-29-2025 Instructions Tamera Rain APRN.CNP - 03/29/2025 12:29 PM EDT - Expect a [employer] message tomorrow with your preoperative lab orders and additional instructions. - Complete all lab tests before surgery, including nicotine (cotinine) level, hemoglobin A1C, vitamin D3, routine pre-op labs, and iron studies. - Increase your lisinopril to 20 mg once daily; take your usual lisinopril dose the morning of surgery. - Discontinue all aspirin and NSAIDs (ibuprofen, naproxen, meloxicam/Aleve) 7 days before surgery; you may use Tylenol if needed. - Do not take hydrochlorothiazide on the morning of surgery to avoid excess urination. - Hold your Wegovy (semaglutide) injections for 2 weeks before surgery (your last dose was April 06). - Your outpatient big toe surgery is scheduled for April 20; you will likely go home the same day. - After your labs are back, review any iron supplement recommendations I ll post in MyChart before starting ferrous sulfate. documented in this encounter [facility] 03-29-2025 Note HNO ID: [id number] Author: TAMERA RAIN APRN.WALE Service: ? Author Type: Nurse Practitioner Type: Progress Notes Filed: 03/30/2025 10:56 Note Text: PRE-OPERATIVE ASSESSMENT Surgeon: Dr. Sosa Type of surgery: arthroplasty of left hallux interphalangeal joint Patient scheduled for surgery on 04/20/25. Diagnosis:hallux limites and non-healing wound dorsal aspect Consultation requested by Dr. Sosa for an opinion regarding pre-op. My final recommendations will be communicated back to the requesting physician by way of shared Medical record or letter to requesting physician via US mail. The patient is a 39-year-old male with hypertension and hallux rigidus, presenting for evaluation of chronic big toe pain and a plantar pressure ulcer. Hallux Rigidus: - Limited dorsiflexion in the right hallux. - Chronic pressure ulcer on the plantar surface of the right hallux, present for over two years. - Ulcer initially developed from a blood blister under a callus. - Ulcer is painful, especially when ambulating; no pain when sitting. - Mayur denies fever or chills. - Currently managed with Betadine and dressings to prevent moisture. - Previous treatment by housing specialist for 1.5 years. - Referred to Dr. Sosa, who recommended surgery due to poor range of motion. - Scheduled for surgery on 04/20. - Mayur denies latex allergy, but reports sensitivity to tape. Obesity: - Weight loss of 55 lbs since June, with 13 lbs lost since last visit. - Initial weight over 400 lbs; current weight in the 340s. - On Wegovy, with last dose on 04/06. - Uses custom orthotics for foot support. - Mayur denies history of diabetes or thyroid issues. - Mayur denies history of sleep apnea, but was advised to have a sleep study a few years ago due to observed apneic episodes during hospitalization for a hernia. Hypertension: - Mayur reports elevated blood pressure readings, attributing them to stress about upcoming surgery. - Currently on Lisinopril and hydrochlorothiazide. Hernia: - History of hernia requiring hospitalization a few years ago. - Treated with morphine for pain management during hospitalization. HISTORY: Wound on dorsal aspect of left great toe for 2 years Allergies: Elidel [Macrolide I* Itching Comment:Burning and severe itching Pollen Cough Adhesive Tape-Silic* Rash Current Outpatient Medications Medication Sig albuterol HFA (PROAIR HFA) 90 mcg/actuation inhaler Inhale 2 puffs as instructed every 6 hours as needed. lisdexamfetamine (VYVANSE) 70 mg capsule Take 1 capsule by mouth once daily for 30 days. Patient should start on March 17, 2025. meloxicam (MOBIC) 15 mg tablet Take 1 tablet by mouth once daily. Take with food. sertraline (ZOLOFT) 100 mg tablet Take 1 tablet by mouth once daily. hydroCHLOROthiazide 12.5 mg capsule Take 1 capsule by mouth once daily. traZODone (DESYREL) 50 mg tablet Take 1 tablet by mouth daily at bedtime. semaglutide, weight loss, (WEGOVY) 0.5 mg/0.5 mL pen injector Inject 0.5 mL subcutaneously one time a week. fluticasone (FLONASE) 50 mcg/actuation nasal spray Use 2 Sprays in each nostril once daily. lisinopril (ZESTRIL) 10 mg tablet Take 1 tablet by mouth once daily. olopatadine (PATANOL) 0.1 % ophthalmic solution USE 1-2 DROPS IN BOTH EYES TWICE DAILY lisdexamfetamine (VYVANSE) 70 mg capsule Take 1 capsule by mouth once daily for 30 days. lisdexamfetamine (VYVANSE) 70 mg capsule Take 1 capsule by mouth once daily for 30 days. Patient should start on February 15, 2025. lisdexamfetamine (VYVANSE) 70 mg capsule Take 1 capsule by mouth once daily for 30 days. Patient should start on December 28, 2024. silver 200 mcg/gram gel Apply to affected area once daily. gel base no.41, bulk, (HYDROGEL) gel Apply to left great toe ulceration daily ondansetron orally disintegrating (ZOFRAN ODT) 4 mg disintegrating tablet Take 1 tablet by mouth every 6 hours as needed for nausea/vomiting. Clobetasol Propionate (TEMOVATE) 0.05 % external solution MIX 1 BOTTLE INTO A 1LB TUB OF CERAVE AND APPLY 1X DAILY TO ANY AREAS OF RASH YOU CAN SEE OR FEEL. No current facility-administered medications for this visit. MEDICATIONS AND ALLERGIES REVIEWED. 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 RESP: Denies dyspnea, chronic cough, asthma, bronchitis, COPD, emphysema, and URI < 2 weeks ago. Slight cough occasionally from allergies. CARD: Patient denies any dyspnea, recent ND, angina, arrhythmias, or valvular disease, and Denies h/o DVT or PE. GI: Patient denies any history of GERD, PUD, liver problems or ETOH abuse., Patient denies any history of IBD, IBS, colitis, colorectal cancer, or (more content not included)... [facility] 03-29-2025 History of Present illness Narrative PRE-OPERATIVE ASSESSMENT Surgeon: Dr. Sosa Type of surgery: arthroplasty of left hallux interphalangeal joint Patient scheduled for surgery on 04/20/25. Diagnosis:hallux limites and non-healing wound dorsal aspect Consultation requested by Dr. Sosa for an opinion regarding pre-op. My final recommendations will be communicated back to the requesting physician by way of shared Medical record or letter to requesting physician via US mail. The patient is a 39-year-old male with hypertension and hallux rigidus, presenting for evaluation of chronic big toe pain and a plantar pressure ulcer. Hallux Rigidus: - Limited dorsiflexion in the right hallux. - Chronic pressure ulcer on the plantar surface of the right hallux, present for over two years. - Ulcer initially developed from a blood blister under a callus. - Ulcer is painful, especially when ambulating; no pain when sitting. - Mayur denies fever or chills. - Currently managed with Betadine and dressings to prevent moisture. - Previous treatment by housing specialist for 1.5 years. - Referred to Dr. Sosa, who recommended surgery due to poor range of motion. - Scheduled for surgery on 04/20. - Mayur denies latex allergy, but reports sensitivity to tape. Obesity: - Weight loss of 55 lbs since June, with 13 lbs lost since last visit. - Initial weight over 400 lbs; current weight in the 340s. - On Wegovy, with last dose on 04/06. - Uses custom orthotics for foot support. - Mayur denies history of diabetes or thyroid issues. - Mayur denies history of sleep apnea, but was advised to have a sleep study a few years ago due to observed apneic episodes during hospitalization for a hernia. Hypertension: - Mayur reports elevated blood pressure readings, attributing them to stress about upcoming surgery. - Currently on Lisinopril and hydrochlorothiazide. Hernia: - History of hernia requiring hospitalization a few years ago. - Treated with morphine for pain management during hospitalization. HISTORY: Wound on dorsal aspect of left great toe for 2 years Allergies: Elidel [Macrolide I* Itching Comment:Burning and severe itching Pollen Cough Adhesive Tape-Silic* Rash Current Outpatient Medications Medication Sig albuterol HFA (PROAIR HFA) 90 mcg/actuation inhaler Inhale 2 puffs as instructed every 6 hours as needed. lisdexamfetamine (VYVANSE) 70 mg capsule Take 1 capsule by mouth once daily for 30 days. Patient should start on March 17, 2025. meloxicam (MOBIC) 15 mg tablet Take 1 tablet by mouth once daily. Take with food. sertraline (ZOLOFT) 100 mg tablet Take 1 tablet by mouth once daily. hydroCHLOROthiazide 12.5 mg capsule Take 1 capsule by mouth once daily. traZODone (DESYREL) 50 mg tablet Take 1 tablet by mouth daily at bedtime. semaglutide, weight loss, (WEGOVY) 0.5 mg/0.5 mL pen injector Inject 0.5 mL subcutaneously one time a week. fluticasone (FLONASE) 50 mcg/actuation nasal spray Use 2 Sprays in each nostril once daily. lisinopril (ZESTRIL) 10 mg tablet Take 1 tablet by mouth once daily. olopatadine (PATANOL) 0.1 % ophthalmic solution USE 1-2 DROPS IN BOTH EYES TWICE DAILY lisdexamfetamine (VYVANSE) 70 mg capsule Take 1 capsule by mouth once daily for 30 days. lisdexamfetamine (VYVANSE) 70 mg capsule Take 1 capsule by mouth once daily for 30 days. Patient should start on February 15, 2025. lisdexamfetamine (VYVANSE) 70 mg capsule Take 1 capsule by mouth once daily for 30 days. Patient should start on December 28, 2024. silver 200 mcg/gram gel Apply to affected area once daily. gel base no.41, bulk, (HYDROGEL) gel Apply to left great toe ulceration daily ondansetron orally disintegrating (ZOFRAN ODT) 4 mg disintegrating tablet Take 1 tablet by mouth every 6 hours as needed for nausea/vomiting. Clobetasol Propionate (TEMOVATE) 0.05 % external solution MIX 1 BOTTLE INTO A 1LB TUB OF CERAVE AND APPLY 1X DAILY TO ANY AREAS OF RASH YOU CAN SEE OR FEEL. No current facility-administered medications for this visit. MEDICATIONS AND ALLERGIES REVIEWED. 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 RESP: Denies dyspnea, chronic cough, asthma, bronchitis, COPD, emphysema, and URI < 2 weeks ago. Slight cough occasionally from allergies. CARD: Patient denies any dyspnea, recent ND, angina, arrhythmias, or valvular disease, and Denies h/o DVT or PE. GI: Patient denies any history of GERD, PUD, liver problems or ETOH abuse., Patient denies any history of IBD, IBS, colitis, colorectal cancer, or diarrheal states. : No history of disease. RENAL: Denies history of renal insufficiency. ENDO: no history of diabetes, no history of thyroid problems, no history of steroid use HEME: patient denies bleeding, bruising easily, no history of anemia and no history of prior transfusion PSYCHIATRIC: denies history of psychiatric illness and denies eating disorders, denies a history of abuse ANESTHESIA COMPLICATIONS: no reported complications Past Surgical History PAST SURGICAL HISTORY Procedure Laterality Date LX REPAIR RECURRENT VENTRAL HERNIA 04/2023 TONSILLECTOMY & ADENOIDECTOMY <AGE 14 TYMPANOSTOMY LOCAL/TOPICAL ANESTHESIA age 6 year PHYSICAL EXAM: BP 162/104 Pulse 110 Wt (!) 155.1 kg (342 lb) SpO2 96% BMI 43.91 kg/m Physical Exam GENERAL: Healthy, alert, no distress, cooperative, Obese, Smiling SKIN: Positive findings: Excoriation: arms, and clammy skin HEENT: PERRL, EOMI, and normal dentition JVD: No jugulovenous distention, No carotid bruits, Carotid pulse normal contour, Supple. CARDIAC: Normal S1 and S2; no rubs, murmurs, or gallops, , diminished at apex LUNGS: Lungs clear to auscultation, Good diaphragmatic excursion ABDOMEN: Abdomen soft, non-tender, BS normal, No masses or organomegaly EXTREMITIES: Extremities normal, no deformities, edema, clubbing or skin discoloration. Good capillary refill., No ulcers NEURO: Gait normal. Reflexes normal and symmetric. Sensation grossly intact, Cranial nerves II-XII intact, favoring left foot due to hole in great toe PULSES: 2+ radial, 2+ carotid : not examined/not indicated. EKG: Not indicated. Known R BBB in 2007 --------- IMPRESSION: optimized but caution due to witnessed MARJ prior to losing weight. I did increase lisinopril to 20 mg daily, instructed to take that day of surgery. Mayur Worthington is a 39 year old male. functional class of IV History: Morbid Obesity Thick full neck, has lost significant amount of weight Patient has intermediate clinical predictors of increased perioperative cardiovascular risk. Patient is scheduled for a intermediate/high-risk procedure. RECOMMENDATIONS: Take the following medications the morning of surgery with a small sip of water: with lisinopril. Will hold HCTZ day of. No Meloxicam 7 days before. No Wegovy for 2 weeks. To Stop NSAID's (e.g. Motrin,Aleve,Arthrotec etc) 7 days before surgery. To Stop Aspirin 7 days before surgery. Instructed to increase lisinopril to 20 mg daily due blood pressure. This patient is optimally prepared for surgery. Discussed treatment plan and patient voices understanding. Patient's questions answered appropriately. Medications and potential side effects were discussed and patient voices understanding. Return to the office as scheduled or as needed for worsening/no improvement. Tamera Rain 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 documented in this encounter [facility] 03-21-2025 Progress note Note Date/Time March 21, 2025 2:58pm [facility] [address] [place] [id number] Progress Note - Wound Care 03/21/25 1453 MR#: [id number] Acct: [id number] Name: MAYUR WORTHINGTON Rep #:[id number] 1 : 1985 39 From: Negrito WALSH PCP: ITZEL Davies Status:REG RCR Location: History of Present Illness Date of Service: 03/21/25 Chief Complaint: Full-thickness wound left great toe History of Wound: Patient has had a full-thickness wound to the great toe for the past 2 months slow to heal. Progress of Wound: Full-thickness wound left great toe Subjective Subjective Patient is a 59-year-old male presenting to wound care center today follow-up evaluation of full-thickness wound to left great toe. Patient has been doing dressing changes with Olesya and sterile Band-Aid. He admits the wound is stable but slow to improve. He admits to no pain or drainage or redness to the area. 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 He denies trauma. Denies constitutional symptoms. No other pedal complaints at this time. Objective Data Objective Data Vital Signs: Vital Signs Temp Pulse Resp BP O2 Del Method 97.1 F L 94 18 167/98 H Room Air 03/21/25 14:37 03/21/25 14:37 03/21/25 14:37 03/21/25 14:37 03/21/25 14:37 Oxygen Delivery Method Room Air Physical Exam Narrative Vascular: DP and PT pulses palpable to the left lower extremity. Skin temperature is warm to warm from proximal ankles to distal digit bilateral. No focal increase is noted. Nonpitting edema appreciated to the left lower extremity. No erythema. Neurological: Light touch intact. Patient does respond to painful stimuli. Dermatological: Full-thickness wound to the subleft hallux at the level of the IPJ measuring 0.9 x 0.7 x 0.5 cm. Negative probe to bone. Excisional debridement down to including subcutaneous tissue, fascia and muscle of the full-thickness wound to the subleft hallux IPJ done with a number 5 mm dermal curette without incident. Predebridement measurement was 0.7 x 0.6 x 0.3cm. Postdebridement measurement 0.9 x 0.7 x 0.5 cm. Muscle skeletal: Mild pain to palpation to full-thickness wound. No pain with calf pressure. Debridement Note Debridement Note Debridement Free Text: Excisional debridement down to including subcutaneous tissue, fascia and muscle of the full-thickness wound to the subleft hallux IPJ done with a number 5 mm dermal curette without incident. Predebridement measurement was 0.7 x 0.6 x 0.3 cm. Postdebridement measurement 0.9 x 0.7 x 0.5cm. Post-Debridement Measurements and Additional Note: Post-Debridement Measurements/Treatment WC - Nurse 1 - General Ulcer Assessment Start: 03/07/25 13:24 Freq: Status: Active Protocol: RACHELE Activity Type Activity Date Activity User E-sign Co-sign Detail Recorded Client Recorded Date Recorded By Document 03/07/25 13:24 ML [id number] 03/07/25 13:32 ML Document 03/14/25 14:01 GM [id number] 03/14/25 14:03 Document 03/21/25 14:37 KW [id number] 03/21/25 14:42 KW 03/07/25 03/14/25 03/21/25 13:24 14:01 14:37 - Today's Visit Information Type of service Follow-up Visit Follow-up Visit Follow-up Visit (Physician/PRODUCT PROMOTER SALES PERSON (Physician/PRODUCT PROMOTER SALES PERSON (Physician/PRODUCT PROMOTER SALES PERSON ) ) ) Arrival Mode Ambulatory Ambulatory Ambulatory Transfer Assistance None Patient Identification Verified (Name & Yes Yes Yes ) Patient Requires Transmission-Based No No Precautions Vital Signs Temperature (97.8 F-99.1 F) 97.0 F L 97.6 F L 97.1 F L Temperature Source Temporal Temporal Temporal Pulse Rate (60-100) 89 95 94 Pulse Location Monitor Monitor Monitor Respiratory Rate (12-18) 15 18 18 Respiratory rate source Observation Observation Observation Oxygen Delivery Method Room Air Room Air Blood Pressure (90/60-120/80) 158/103 H 155/100 H 167/98 H Blood Pressure Mean (mm Hg) 121 118 121 Source Monitor Monitor Monitor Position Sitting Sitting Semi-Fowlers Blood Pressure Location Left Arm Left Arm Left Forearm History Since Last Visit- (Skip if this is Patient's initial visit) Have you changed medications since your No No No last visit? Any new allergies or adverse reactions No No No Had a fall/change in ADL's that may No No No increase risk of falls Signs or symptoms of abuse and/or No No No neglect since last visit Have you been in the hospital since your No No last visit? Has dressing in place as prescribed Yes Yes Yes Has compression in place as prescribed N/A N/A N/A Has offloadiing in place as prescribed N/A N/A N/A Experienced any changes in pain level or No No No management Left Footwear Regular Shoe Regular Shoe Right Footwear Regular Shoe Pain Scale: 0-10 Numeric Is Patient Pain Free? Yes Yes Yes - Nurse 1 - General Ulcer Measurement Start: 03/07/25 13:24 Freq: Status: Active Protocol: Activity Type Activity Date Activity User E-sign Co-sign Detail Recorded Client Recorded Date Recorded By Document 03/07/25 13:24 ML [id number] 03/07/25 13:32 ML Document 03/14/25 14:01 [id number] 03/14/25 14:03 GM Document 03/21/25 14:37 KW [id number] 03/21/25 14:42 KW 03/07/25 03/14/25 03/21/25 13:24 14:01 14:37 Wound Center Nurse 1 #1 lt hallux -Current Size (cm) - Length 0.5 0.4 0.7 -Current Size (cm) - Width 0.5 0.4 0.5 -Current Size (cm) - Depth 0.3 0.2 0.4 -Total Square Cm 0.25 0.16 0.35 -Date of Last Picture (Recall this 03/14/25 03/21/25 field) -Photo Taken Yes -Epithelialization None Present -Tunneling No -Undermining/Tunneling No -Circular Undermining No -Exudate Amt Medium Small Medium -Exudate Type Serosanguineous Serosanguineous Serosanguineous -Wound Margin Distinct, Distinct, Thickened Outline Outline Attached Attached -Granulation Amt Small (1-33%) Small (1-33%) Large (67-100%) -Granulation Quality Lynch Lynch -Slough/Fibrin No -Necrosis Amt Medium (34-66%) None Present (0 %) -Necrotic Tissue Type Adherent Slough -Texture (Flaca-wound Skin Appearance) Assessed Assessed,Callus Assessed,Callus -Moisture (Flaca-wound Skin Appearance) Assessed Assessed Assessed -Color (Flaca-wound Skin Appearance) Assessed Assessed Assessed -Temperature (Flaca-wound Skin No Abnormality No Abnormality No Abnormality Appearance) (Pt Warm) (Pt Warm) (Pt Warm) -Tenderness on Palpation (Flaca-wound No No No Skin Appearance) -Ulcer Cleansing Rinsed/ Rinsed/ Rinsed/ Irrigated with Irrigated with Irrigated with Saline Saline Saline -Foul Odor after Cleansing No No -Anesthetic Used 5% Lidocaine 5% Lidocaine 5% Lidocaine Gel Gel Gel WC - Nurse 2 - General Ulcer CM Notes Start: 03/07/25 13:24 Freq: Status: Active Protocol: Activity Type Activity Date Activity User E-sign Co-sign Detail Recorded Client Recorded Date Recorded By Document 03/07/25 13:43 JF [id number] 03/07/25 13:47 JF Document 03/14/25 14:10 JF [id number] 03/14/25 14:14 JF Edit Result 03/14/25 14:10 JF (1) [id number] 03/14/25 14:16 JF Document 03/21/25 14:47 DS [id number] 03/21/25 14:50 DS Edit Result 03/21/25 14:47 DS (2) [id number] 03/21/25 14:52 DS (1) #1 lt hallux - Clinical Debridement Subcutaneous => Muscle / Fascia - Tissue Removed Subcutaneous => Muscle - Debridement - Subq, 1st 20sq cm Yes => No - Debridement - Muscle / Fascia, 1st => Yes 20sq cm (2) #1 lt hallux - Clinical Debridement Subcutaneous => Muscle / Fascia - Tissue Removed Subcutaneous => Muscle - Debridement - Subq, 1st 20sq cm Yes => - Debridement - Muscle / Fascia, 1st => Yes 20sq cm 03/07/25 03/14/25 03/21/25 13:43 14:10 14:47 Wound Center Nurse 2 #1 lt hallux -Time 13:44 14:11 14:47 -Correct Patient Yes Yes Yes -Correct Side, Site, Position Yes Yes Yes -Correct Procedure Yes Yes Yes -Procedure Performed Yes Yes Yes -Type of Procedure Debridement Debridement Debridement -Clinical Debridement Subcutaneous Muscle / Fascia Muscle / Fascia -Tissue Removed Subcutaneous Muscle Muscle -Post Debridement (cm) - Length 0.5 0.6 0.9 -Post Debridement (cm) - Width 0.6 0.6 0.7 -Post Debridement (cm) - Depth 0.5 0.5 0.5 -Total Square (Post) (cm) 0.30 0.36 0.63 -Area of Debridement (cm) - Length 0.5 0.6 0.9 -Area of Debridement (cm) - Width 0.6 0.6 0.7 -Total Square (Area) (cm) 0.30 0.36 0.63 -Tunneling No No No -Undermining/Tunneling No No No -Circular Undermining No No No -Wound/Ulcer Outcome Not Healed Not Healed Not Healed -Ulcer Cleansing Rinsed/ Rinsed/ Rinsed/ Irrigated with Irrigated with Irrigated with Saline Saline Saline -Foul Odor after Cleansing No No No -Bioengineered Tissue No No No -Bleeding Controlled with Pressure Pressure Pressure -Treatment Response Procedure Procedure Procedure Tolerated Well Tolerated Well Tolerated Well -Offloading No No -Debridement - Subq, 1st 20sq cm Yes No -Debridement - Muscle / Fascia, 1st Yes Yes 20sq cm Pain Scale: 0-10 Numeric Is Patient Pain Free? Yes Yes Yes - Nurse 3 - General Ulcer D/C NN Start: 03/07/25 13:24 Freq: Status: Active Protocol: Activity Type Activity Date Activity User E-sign Co-sign Detail Recorded Client Recorded Date Recorded By Document 03/07/25 13:47 [id number] 03/07/25 13:47 Document 03/14/25 14:33 [id number] 03/14/25 14:34 03/07/25 03/14/25 13:47 14:33 Wound Care Center Nurse 3 #1 lt hallux -Ulcer Cleansing Rinsed/ Not Cleansed Irrigated with Saline -Foul Odor after Cleansing No No -Primary Dressing Applied Promogran Olesya Matter -Other Dressing betadine -Primary Dressing Covered/Secured with Dry Gauze, Dry Gauze & Secured with Roll Gauze, Tape Secured with Tape -Promogran Olesya Matter 1 Pain Scale: 0-10 Numeric Is Patient Pain Free? Yes Yes - Visit Discharge Discharge Condition Stable Stable Ambulatory Status Ambulatory Ambulatory Transportation Private Auto Private Auto Medication Reconcilliation completed & Yes provided to patient/care provider Clinical Summary of Care Provided Yes Assessment/Plan Assessment/Plan (1) Non-pressure chronic ulcer of other part of left foot with necrosis of muscle: CODE(S): L97.523 - Non-pressure chronic ulcer of other part of left foot with necrosis of muscle PLAN: Patient was examined and evaluated. All findings were discussed with the patient. All questions were answered to the patient satisfaction. Excisional debridement down to including subcutaneous tissue, fascia and muscle of the full-thickness wound to the subleft hallux IPJ done with a number 5 mm dermal curette without incident. Predebridement measurement was 0.7 x 0.6 x 0.3cm. Postdebridement measurement 0.9 x 0.7 x 0.5 cm. The left great toe was white clean and patted dry. Betadine paint and dry sterile dressing was appliedapplied followed by compression wrap. Patient will continue daily dressing changes. Educate the patient not to get the wound wet. A long discussion with the patient regarding the chronicity of the wound and educated the patient that we need to move forward with IPJ arthroplasty with surgical wound skin graft site prep with application skin graft substitute versus possibly delayed primary closure to the left great toe. He was understanding of this and agreeable to move forward with surgery. Patient will be booked and most likely have surgery in April. Patient was educated to plan for 3 weeks off of work which she was understanding of. All risk and benefits discussed with patient great detail. Patient will follow-up with Dr. Sosa in 1 week (2) Osteoarthritis of left foot: CODE(S): M19.072 - Primary osteoarthritis, left ankle and foot 03/21/25 1458 <Electronically signed by Negrito Sosa DPM> Cosigner Signature (if applicable): CC: ~ Signed [facility] Work Phone: [phone] [phone] Progress note [facility] [address] [place] [address] Progress Note - Wound Care 03/21/25 1453 MR#: [id number] Acct: [id number] Name: MAYUR WORTHINGTON Rep #:[id number] 1 : 1985 39 From: Negrito WALSH PCP: ITZEL Davies Status:REG RCR Location: History of Present Illness Date of Service: 03/21/25 Chief Complaint: Full-thickness wound left great toe History of Wound: Patient has had a full-thickness wound to the great toe for the past 2 months slow to heal. Progress of Wound: Full-thickness wound left great toe Subjective Subjective Patient is a 59-year-old male presenting to wound care center today follow-up evaluation of full-thickness wound to left great toe. Patient has been doing dressing changes with Olesya and sterile Band-Aid. He admits the wound is stable but slow to improve. He admits to no pain or drainage or redness to the area. 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 He denies trauma. Denies constitutional symptoms. No other pedal complaints at this time. Objective Data Objective Data Vital Signs: Vital Signs Temp Pulse Resp BP O2 Del Method 97.1 F L 94 18 167/98 H Room Air 03/21/25 14:37 03/21/25 14:37 03/21/25 14:37 03/21/25 14:37 03/21/25 14:37 Oxygen Delivery Method Room Air Physical Exam Narrative Vascular: DP and PT pulses palpable to the left lower extremity. Skin temperature is warm to warm from proximal ankles to distal digit bilateral. No focal increase is noted. Nonpitting edema appreciated to the left lower extremity. No erythema. Neurological: Light touch intact. Patient does respond to painful stimuli. Dermatological: Full-thickness wound to the subleft hallux at the level of the IPJ measuring 0.9 x 0.7 x 0.5 cm. Negative probe to bone. Excisional debridement down to including subcutaneous tissue, fascia and muscle of the full-thickness wound to the subleft hallux IPJ done with a number 5 mm dermal curette without incident. Predebridement measurement was 0.7 x 0.6 x 0.3cm. Postdebridement measurement 0.9 x 0.7 x 0.5 cm. Muscle skeletal: Mild pain to palpation to full-thickness wound. No pain with calf pressure. Debridement Note Debridement Note Debridement Free Text: Excisional debridement down to including subcutaneous tissue, fascia and muscle of the full-thickness wound to the subleft hallux IPJ done with a number 5 mm dermal curette without incident. Predebridement measurement was 0.7 x 0.6 x 0.3 cm. Postdebridement measurement 0.9 x 0.7 x 0.5cm. Post-Debridement Measurements and Additional Note: Post-Debridement Measurements/Treatment - Nurse 1 - General Ulcer Assessment Start: 03/07/25 13:24 Freq: Status: Active Protocol: .KIRILLEXT Activity Type Activity Date Activity User E-sign Co-sign Detail Recorded Client Recorded Date Recorded By Document 03/07/25 13:24 ML [id number] 03/07/25 13:32 ML Document 03/14/25 14:01 GM [id number] 03/14/25 14:03 GM Document 03/21/25 14:37 KW [id number] 03/21/25 14:42 KW 03/07/25 03/14/25 03/21/25 13:24 14:01 14:37 - Today's Visit Information Type of service Follow-up Visit Follow-up Visit Follow-up Visit (Physician/PRODUCT PROMOTER SALES PERSON (Physician/PRODUCT PROMOTER SALES PERSON (Physician/PRODUCT PROMOTER SALES PERSON ) ) ) Arrival Mode Ambulatory Ambulatory Ambulatory Transfer Assistance None Patient Identification Verified (Name & Yes Yes Yes ) Patient Requires Transmission-Based No No Precautions Vital Signs Temperature (97.8 F-99.1 F) 97.0 F L 97.6 F L 97.1 F L Temperature Source Temporal Temporal Temporal Pulse Rate (60-100) 89 95 94 Pulse Location Monitor Monitor Monitor Respiratory Rate (12-18) 15 18 18 Respiratory rate source Observation Observation Observation Oxygen Delivery Method Room Air Room Air Blood Pressure (90/60-120/80) 158/103 H 155/100 H 167/98 H Blood Pressure Mean (mm Hg) 121 118 121 Source Monitor Monitor Monitor Position Sitting Sitting Semi-Fowlers Blood Pressure Location Left Arm Left Arm Left Forearm History Since Last Visit- (Skip if this is Patient's initial visit) Have you changed medications since your No No No last visit? Any new allergies or adverse reactions No No No Had a fall/change in ADL's that may No No No increase risk of falls Signs or symptoms of abuse and/or No No No neglect since last visit Have you been in the hospital since your No No last visit? Has dressing in place as prescribed Yes Yes Yes Has compression in place as prescribed N/A N/A N/A Has offloadiing in place as prescribed N/A N/A N/A Experienced any changes in pain level or No No No management Left Footwear Regular Shoe Regular Shoe Right Footwear Regular Shoe Pain Scale: 0-10 Numeric Is Patient Pain Free? Yes Yes Yes - Nurse 1 - General Ulcer Measurement Start: 03/07/25 13:24 Freq: Status: Active Protocol: Activity Type Activity Date Activity User E-sign Co-sign Detail Recorded Client Recorded Date Recorded By Document 03/07/25 13:24 ML [id number] 03/07/25 13:32 ML Document 03/14/25 14:01 GM [id number] 03/14/25 14:03 GM Document 03/21/25 14:37 KW [id number] 03/21/25 14:42 KW 03/07/25 03/14/25 03/21/25 13:24 14:01 14:37 Wound Center Nurse 1 #1 lt hallux -Current Size (cm) - Length 0.5 0.4 0.7 -Current Size (cm) - Width 0.5 0.4 0.5 -Current Size (cm) - Depth 0.3 0.2 0.4 -Total Square Cm 0.25 0.16 0.35 -Date of Last Picture (Recall this 03/14/25 03/21/25 field) -Photo Taken Yes -Epithelialization None Present -Tunneling No -Undermining/Tunneling No -Circular Undermining No -Exudate Amt Medium Small Medium -Exudate Type Serosanguineous Serosanguineous Serosanguineous -Wound Margin Distinct, Distinct, Thickened Outline Outline Attached Attached -Granulation Amt Small (1-33%) Small (1-33%) Large (67-100%) -Granulation Quality Lynch Lynch -Slough/Fibrin No -Necrosis Amt Medium (34-66%) None Present (0 %) -Necrotic Tissue Type Adherent Slough -Texture (Flaca-wound Skin Appearance) Assessed Assessed,Callus Assessed,Callus -Moisture (Flaca-wound Skin Appearance) Assessed Assessed Assessed -Color (Flaca-wound Skin Appearance) Assessed Assessed Assessed -Temperature (Flaca-wound Skin No Abnormality No Abnormality No Abnormality Appearance) (Pt Warm) (Pt Warm) (Pt Warm) -Tenderness on Palpation (Flaca-wound No No No Skin Appearance) -Ulcer Cleansing Rinsed/ Rinsed/ Rinsed/ Irrigated with Irrigated with Irrigated with Saline Saline Saline -Foul Odor after Cleansing No No -Anesthetic Used 5% Lidocaine 5% Lidocaine 5% Lidocaine Gel Gel Gel WC - Nurse 2 - General Ulcer CM Notes Start: 03/07/25 13:24 Freq: Status: Active Protocol: Activity Type Activity Date Activity User E-sign Co-sign Detail Recorded Client Recorded Date Recorded By Document 03/07/25 13:43 JF [id number] 03/07/25 13:47 Document 03/14/25 14:10 JF [id number] 03/14/25 14:14 JF Edit Result 03/14/25 14:10 JF (1) [id number] 03/14/25 14:16 JF Document 03/21/25 14:47 DS [id number] 03/21/25 14:50 DS Edit Result 03/21/25 14:47 DS (2) [id number] 03/21/25 14:52 DS (1) #1 lt hallux - Clinical Debridement Subcutaneous => Muscle / Fascia - Tissue Removed Subcutaneous => Muscle - Debridement - Subq, 1st 20sq cm Yes => No - Debridement - Muscle / Fascia, 1st => Yes 20sq cm (2) #1 lt hallux - Clinical Debridement Subcutaneous => Muscle / Fascia - Tissue Removed Subcutaneous => Muscle - Debridement - Subq, 1st 20sq cm Yes => - Debridement - Muscle / Fascia, 1st => Yes 20sq cm 03/07/25 03/14/25 03/21/25 13:43 14:10 14:47 Wound Center Nurse 2 #1 lt hallux -Time 13:44 14:11 14:47 -Correct Patient Yes Yes Yes -Correct Side, Site, Position Yes Yes Yes -Correct Procedure Yes Yes Yes -Procedure Performed Yes Yes Yes -Type of Procedure Debridement Debridement Debridement -Clinical Debridement Subcutaneous Muscle / Fascia Muscle / Fascia -Tissue Removed Subcutaneous Muscle Muscle -Post Debridement (cm) - Length 0.5 0.6 0.9 -Post Debridement (cm) - Width 0.6 0.6 0.7 -Post Debridement (cm) - Depth 0.5 0.5 0.5 -Total Square (Post) (cm) 0.30 0.36 0.63 -Area of Debridement (cm) - Length 0.5 0.6 0.9 -Area of Debridement (cm) - Width 0.6 0.6 0.7 -Total Square (Area) (cm) 0.30 0.36 0.63 -Tunneling No No No -Undermining/Tunneling No No No -Circular Undermining No No No -Wound/Ulcer Outcome Not Healed Not Healed Not Healed -Ulcer Cleansing Rinsed/ Rinsed/ Rinsed/ Irrigated with Irrigated with Irrigated with Saline Saline Saline -Foul Odor after Cleansing No No No -Bioengineered Tissue No No No -Bleeding Controlled with Pressure Pressure Pressure -Treatment Response Procedure Procedure Procedure Tolerated Well Tolerated Well Tolerated Well -Offloading No No -Debridement - Subq, 1st 20sq cm Yes No -Debridement - Muscle / Fascia, 1st Yes Yes 20sq cm Pain Scale: 0-10 Numeric Is Patient Pain Free? Yes Yes Yes - Nurse 3 - General Ulcer D/C NN Start: 03/07/25 13:24 Freq: Status: Active Protocol: Activity Type Activity Date Activity User E-sign Co-sign Detail Recorded Client Recorded Date Recorded By Document 03/07/25 13:47 [id number] 03/07/25 13:47 Document 03/14/25 14:33 [id number] 03/14/25 14:34 03/07/25 03/14/25 13:47 14:33 Wound Care Center Nurse 3 #1 lt hallux -Ulcer Cleansing Rinsed/ Not Cleansed Irrigated with Saline -Foul Odor after Cleansing No No -Primary Dressing Applied Promogran Olesya Matter -Other Dressing betadine -Primary Dressing Covered/Secured with Dry Gauze, Dry Gauze & Secured with Roll Gauze, Tape Secured with Tape -Promogran Olesya Matter 1 Pain Scale: 0-10 Numeric Is Patient Pain Free? Yes Yes WC - Visit Discharge Discharge Condition Stable Stable Ambulatory Status Ambulatory Ambulatory Transportation Private Auto Private Auto Medication Reconcilliation completed & Yes provided to patient/care provider Clinical Summary of Care Provided Yes Assessment/Plan Assessment/Plan (1) Non-pressure chronic ulcer of other part of left foot with necrosis of muscle: CODE(S): L97.523 - Non-pressure chronic ulcer of other part of left foot with necrosis of muscle PLAN: Patient was examined and evaluated. All findings were discussed with the patient. All questions were answered to the patient satisfaction. Excisional debridement down to including subcutaneous tissue, fascia and muscle of the full-thickness wound to the subleft hallux IPJ done with a number 5 mm dermal curette without incident. Predebridement measurement was 0.7 x 0.6 x 0.3cm. Postdebridement measurement 0.9 x 0.7 x 0.5 cm. The left great toe was white clean and patted dry. Betadine paint and dry sterile dressing was appliedapplied followed by compression wrap. Patient will continue daily dressing changes. Educate the patient not to get the wound wet. A long discussion with the patient regarding the chronicity of the wound and educated the patient that we need to move forward with IPJ arthroplasty with surgical wound skin graft site prep with application skin graft substitute versus possibly delayed primary closure to the left great toe. He was u nderstanding of this and agreeable to move forward with surgery. Patient will be booked and most likely have surgery in April. Patient was educated to plan for 3 weeks off of work which she was understanding of. All risk and benefits discussed with patient great detail. Patient will follow-up with Dr. Sosa in 1 week (2) Osteoarthritis of left foot: CODE(S): M19.072 - Primary osteoarthritis, left ankle and foot 03/21/25 [id number] Cosigner Signature (if applicable): CC: ~ Signed [facility]08-13-2025 Progress note Author Negrito Sosa [facility] Note Date/Time March 14, 2025 2: 51pm [facility] [address] [place] [address] Progress Note - Wound Care 03/14/25 1447 MR#: [id number] Acct: [id number] Name: MAYUR WORTHINGTON Rep #:[id number] 2 : 1985 39 From: Negrito Aranda PM PCP: ITZEL Davies Status:REG RCR Location: History of Present Illness Date of Service: 03/14/25 Chief Complaint: Full-thickness wound left great toe History of Wound: Patient has had a full-thickness wound to the great toe for the past 2 months slow to heal. Progress of Wound: Full-thickness wound left great toe Subjective Subjective Patient is a 39-year-old nondiabetic male presenting to wound care center today follow-up evaluation of full-thickness wound to the plantar aspect of the IPJ ofthe left hallux. Patient has been compliant with dressing changes and oral antibiotics. He admits improvement to the redness and pain. He is grateful forhis care. He denies trauma. Denies constitutional symptoms. No other pedal complaints at this time. Objective Data Objective Data Vital Signs: Vital Signs Temp Pulse Resp BP O2 Del Method 97.6 F L 95 18 155/100 H Room Air 03/14/25 14:01 03/14/25 14:01 03/14/25 14:01 03/14/25 14:01 03/14/25 14:01 Oxygen Delivery Method Room Air Physical Exam Narrative Vascular: DP and PT pulses palpable to the left lower extremity. Skin temperature is warm to warm from proximal ankles to distal digit bilateral. No focal increase is noted. Nonpitting edema appreciated to the left lower extremity. Neurological: Light touch intact. Patient does respond to painful stimuli. Dermatological: Full-thickness wound to the subleft hallux at the level of the IPJ measuring 0.6 x 0.6 x 0.5 cm. Negative probe to bone. Excisional debridement down to including subcutaneous tissue, fascia and muscle of the full-thickness wound to the subleft hallux IPJ done with a number 5 mm dermal curette without incident. Predebridement measurement was 0.4 x 0.4 x 0.2cm. Postdebridement measurement 0.6 x 0.6 x 0.5 cm. Muscle skeletal: Mild pain to palpation to full-thickness wound. No pain with calf pressure. Debridement Note Debridement Note Debridement Free Text: Excisional debridement down to including subcutaneous tissue, fascia and muscle of the full-thickness wound to the subleft hallux IPJ done with a number 5 mm dermal curette without incident. Predebridement measurement was 0.4 x 0.4 x 0.2 cm. Postdebridement measurement 0.6 x 0.6 x 0.5cm. Post-Debridement Measurements and Additional Note: Post-Debridement Measurements/Treatment - Nurse 1 - General Ulcer Assessment Start: 03/07/25 13:24 Freq: Status: Active Protocol: WC.[email or web address] Activity Type Activity Date Activity User E-sign Co-sign Detail Recorded Client Recorded Date Recorded By Document 03/07/25 13:24 ML [id number] 03/07/25 13:32 ML Document 03/14/25 14:01 [id number] 03/14/25 14:03 03/07/25 03/14/25 13:24 14:01 - Today's Visit Information Type of service Follow-up Visit Follow-up Visit (Physician/PRODUCT PROMOTER SALES PERSON (Physician/PRODUCT PROMOTER SALES PERSON ) ) Arrival Mode Ambulatory Ambulatory Transfer Assistance None Patient Identification Verified (Name & Yes Yes ) Patient Requires Transmission-Based No No Precautions Vital Signs Temperature (97.8 F-99.1 F) 97.0 F L 97.6 F L Temperature Source Temporal Temporal Pulse Rate (60-100) 89 95 Pulse Location Monitor Monitor Respiratory Rate (12-18) 15 18 Respiratory rate source Observation Observation Oxygen Delivery Method Room Air Blood Pressure (90/60-120/80) 158/103 H 155/100 H Blood Pressure Mean (mm Hg) 121 118 Source Monitor Monitor Position Sitting Sitting Blood Pressure Location Left Arm Left Arm History Since Last Visit- (Skip if this is Patient's initial visit) Have you changed medications since your No No last visit? Any new allergies or adverse reactions No No Had a fall/change in ADL's that may No No increase risk of falls Signs or symptoms of abuse and/or No No neglect since last visit Have you been in the hospital since your No last visit? Has dressing in place as prescribed Yes Yes Has compression in place as prescribed N/A N/A Has offloadiing in place as prescribed N/A N/A Experienced any changes in pain level or No No management Left Footwear Regular Shoe Pain Scale: 0-10 Numeric Is Patient Pain Free? Yes Yes WC - Nurse 1 - General Ulcer Measurement Start: 03/07/25 13:24 Freq: Status: Active Protocol: Activity Type Activity Date Activity User E-sign Co-sign Detail Recorded Client Recorded Date Recorded By Document 03/07/25 13:24 ML [id number] 03/07/25 13:32 ML Document 03/14/25 14:01 GM [id number] 03/14/25 14:03 GM 03/07/25 03/14/25 13:24 14:01 Wound Center Nurse 1 #1 lt hallux -Current Size (cm) - Length 0.5 0.4 -Current Size (cm) - Width 0.5 0.4 -Current Size (cm) - Depth 0.3 0.2 -Total Square Cm 0.25 0.16 -Date of Last Picture (Recall this 03/14/25 field) -Photo Taken Yes -Epithelialization None Present -Tunneling No -Undermining/Tunneling No -Circular Undermining No -Exudate Amt Medium Small -Exudate Type Serosanguineous Serosanguineous -Wound Margin Distinct, Distinct, Outline Outline Attached Attached -Granulation Amt Small (1-33%) Small (1-33%) -Granulation Quality Lynch -Slough/Fibrin No -Necrosis Amt Medium (34-66%) None Present (0 %) -Necrotic Tissue Type Adherent Slough -Texture (Flaca-wound Skin Appearance) Assessed Assessed,Callus -Moisture (Flaca-wound Skin Appearance) Assessed Assessed -Color (Flaca-wound Skin Appearance) Assessed Assessed -Temperature (Flaca-wound Skin No Abnormality No Abnormality Appearance) (Pt Warm) (Pt Warm) -Tenderness on Palpation (Flaca-wound No No Skin Appearance) -Ulcer Cleansing Rinsed/ Rinsed/ Irrigated with Irrigated with Saline Saline -Foul Odor after Cleansing No -Anesthetic Used 5% Lidocaine 5% Lidocaine Gel Gel GREG - Nurse 2 - General Ulcer CM Notes Start: 03/07/25 13:24 Freq: Status: Active Protocol: Activity Type Activity Date Activity User E-sign Co-sign Detail Recorded Client Recorded Date Recorded By Document 03/07/25 13:43 JF [id number] 03/07/25 13:47 JF Document 03/14/25 14:10 [id number] 03/14/25 14:14 JF Edit Result 03/14/25 14:10 JF (1) [id number] 03/14/25 14:16 JF (1) #1 lt hallux - Clinical Debridement Subcutaneous => Muscle / Fascia - Tissue Removed Subcutaneous => Muscle - Debridement - Subq, 1st 20sq cm Yes => No - Debridement - Muscle / Fascia, 1st => Yes 20sq cm 03/07/25 03/14/25 13:43 14:10 Wound Center Nurse 2 #1 lt hallux -Time 13:44 14:11 -Correct Patient Yes Yes -Correct Side, Site, Position Yes Yes -Correct Procedure Yes Yes -Procedure Performed Yes Yes -Type of Procedure Debridement Debridement -Clinical Debridement Subcutaneous Muscle / Fascia -Tissue Removed Subcutaneous Muscle -Post Debridement (cm) - Length 0.5 0.6 -Post Debridement (cm) - Width 0.6 0.6 -Post Debridement (cm) - Depth 0.5 0.5 -Total Square (Post) (cm) 0.30 0.36 -Area of Debridement (cm) - Length 0.5 0.6 -Area of Debridement (cm) - Width 0.6 0.6 -Total Square (Area) (cm) 0.30 0.36 -Tunneling No No -Undermining/Tunneling No No -Circular Undermining No No -Wound/Ulcer Outcome Not Healed Not Healed -Ulcer Cleansing Rinsed/ Rinsed/ Irrigated with Irrigated with Saline Saline -Foul Odor after Cleansing No No -Bioengineered Tissue No No -Bleeding Controlled with Pressure Pressure -Treatment Response Procedure Procedure Tolerated Well Tolerated Well -Offloading No No -Debridement - Subq, 1st 20sq cm Yes No -Debridement - Muscle / Fascia, 1st Yes 20sq cm Pain Scale: 0-10 Numeric Is Patient Pain Free? Yes Yes WC - Nurse 3 - General Ulcer D/C NN Start: 03/07/25 13:24 Freq: Status: Active Protocol: Activity Type Activity Date Activity User E-sign Co-sign Detail Recorded Client Recorded Date Recorded By Document 03/07/25 13:47 [id number] 03/07/25 13:47 Document 03/14/25 14:33 [id number] 03/14/25 14:34 03/07/25 03/14/25 13:47 14:33 Wound Care Center Nurse 3 #1 lt hallux -Ulcer Cleansing Rinsed/ Not Cleansed Irrigated with Saline -Foul Odor after Cleansing No No -Primary Dressing Applied Promogran Olesya Matter -Other Dressing betadine -Primary Dressing Covered/Secured with Dry Gauze, Dry Gauze & Secured with Roll Gauze, Tape Secured with Tape -Promogran Olesya Matter 1 Pain Scale: 0-10 Numeric Is Patient Pain Free? Yes Yes WC - Visit Discharge Discharge Condition Stable Stable Ambulatory Status Ambulatory Ambulatory Transportation Private Auto Private Auto Medication Reconcilliation completed & Yes provided to patient/care provider Clinical Summary of Care Provided Yes Assessment/Plan Assessment/Plan (1) Non-pressure chronic ulcer of other part of left foot with necrosis of muscle: CODE(S): L97.523 - Non-pressure chronic ulcer of other part of left foot with necrosis of muscle PLAN: Patient was examined and evaluated. All findings were discussed with the patient. All questions were answered to the patient satisfaction. Excisional debridement down to including subcutaneous tissue, fascia and muscle of the full-thickness wound to the subleft hallux IPJ done with a number 5 mm dermal curette without incident. Predebridement measurement was 0.4 x 0.4 x 0.2cm. Postdebridement measurement 0.6 x 0.6 x 0.5 cm. The left great toe was white cleaned and patted dry. Betadine paint dry sterile dressing compression bra were donned. Patient will perform daily dressing changes. Will continue antibiotics until gone. Educated the patient on further conservative versus surgical treatment. Will recommend conservative treatment with Connolly's extension [id number] orthotic or custom orthotics. If the patient fails conservative treatment we will need to move forward with IPJ arthroplasty which she is understanding of. Patient will follow-up with Dr. Sosa in 1 week 03/14/25 7840 <Electronically signed by Negrito Sosa DPM> Cosigner Signature (if applicable): CC: ~ Signed [facility] Work Phone: [phone]) 577-752508-13-2025 Progress note [facility] [address] [place] [address] Progress Note - Wound Care 03/14/25 1447 MR#: [id number] Acct: [id number] Name: MAYUR WORTHINGTON Rep #:[id number] 2 : 1985 39 From: Negrito WALSH PCP: ITZEL Davies Status:REG RCR Location: History of Present Illness Date of Service: 03/14/25 Chief Complaint: Full-thickness wound left great toe History of Wound: Patient has had a full-thickness wound to the great toe for the past 2 months slow to heal. Progress of Wound: Full-thickness wound left great toe Subjective Subjective Patient is a 39-year-old nondiabetic male presenting to wound care center today follow-up evaluation of full-thickness wound to the plantar aspect of the IPJ ofthe left hallux. Patient has been compliant with dressing changes and oral antibiotics. He admits improvement to the redness and pain. He is grateful forhis care. He denies trauma. Denies constitutional symptoms. No other pedal complaints at this time. Objective Data Objective Data Vital Signs: Vital Signs Temp Pulse Resp BP O2 Del Method 97.6 F L 95 18 155/100 H Room Air 03/14/25 14:01 03/14/25 14:01 03/14/25 14:01 03/14/25 14:01 03/14/25 14:01 Oxygen Delivery Method Room Air Physical Exam Narrative Vascular: DP and PT pulses palpable to the left lower extremity. Skin temperature is warm to warm from proximal ankles to distal digit bilateral. No focal increase is noted. Nonpitting edema appreciated to the left lower extremity. Neurological: Light touch intact. Patient does respond to painful stimuli. Dermatological: Full-thickness wound to the subleft hallux at the level of the IPJ measuring 0.6 x 0.6 x 0.5 cm. Negative probe to bone. Excisional debridement down to including subcutaneous tissue, fascia and muscle of the full-thickness wound to the subleft hallux IPJ done with a number 5 mm dermal curette without incident. Predebridement measurement was 0.4 x 0.4 x 0.2cm. Postdebridement measurement 0.6 x 0.6 x 0.5 cm. Muscle skeletal: Mild pain to palpation to full-thickness wound. No pain with calf pressure. Debridement Note Debridement Note Debridement Free Text: Excisional debridement down to including subcutaneous tissue, fascia and muscle of the full-thickness wound to the subleft hallux IPJ done with a number 5 mm dermal curette without incident. Predebridement measurement was 0.4 x 0.4 x 0.2 cm. Postdebridement measurement 0.6 x 0.6 x 0.5cm. Post-Debridement Measurements and Additional Note: Post-Debridement Measurements/Treatment - Nurse 1 - General Ulcer Assessment Start: 03/07/25 13:24 Freq: Status: Active Protocol: RACHELE Activity Type Activity Date Activity User E-sign Co-sign Detail Recorded Client Recorded Date Recorded By Document 03/07/25 13:24 ML [id number] 03/07/25 13:32 ML Document 03/14/25 14:01 [id number] 03/14/25 14:03 03/07/25 03/14/25 13:24 14:01 - Today's Visit Information Type of service Follow-up Visit Follow-up Visit (Physician/PRODUCT PROMOTER SALES PERSON (Physician/PRODUCT PROMOTER SALES PERSON ) ) Arrival Mode Ambulatory Ambulatory Transfer Assistance None Patient Identification Verified (Name & Yes Yes ) Patient Requires Transmission-Based No No Precautions Vital Signs Temperature (97.8 F-99.1 F) 97.0 F L 97.6 F L Temperature Source Temporal Temporal Pulse Rate (60-100) 89 95 Pulse Location Monitor Monitor Respiratory Rate (12-18) 15 18 Respiratory rate source Observation Observation Oxygen Delivery Method Room Air Blood Pressure (90/60-120/80) 158/103 H 155/100 H Blood Pressure Mean (mm Hg) 121 118 Source Monitor Monitor Position Sitting Sitting Blood Pressure Location Left Arm Left Arm History Since Last Visit- (Skip if this is Patient's initial visit) Have you changed medications since your No No last visit? Any new allergies or adverse reactions No No Had a fall/change in ADL's that may No No increase risk of falls Signs or symptoms of abuse and/or No No neglect since last visit Have you been in the hospital since your No last visit? Has dressing in place as prescribed Yes Yes Has compression in place as prescribed N/A N/A Has offloadiing in place as prescribed N/A N/A Experienced any changes in pain level or No No management Left Footwear Regular Shoe Pain Scale: 0-10 Numeric Is Patient Pain Free? Yes Yes GREG - Nurse 1 - General Ulcer Measurement Start: 03/07/25 13:24 Freq: Status: Active Protocol: Activity Type Activity Date Activity User E-sign Co-sign Detail Recorded Client Recorded Date Recorded By Document 03/07/25 13:24 ML [id number] 03/07/25 13:32 ML Document 03/14/25 14:01 GM [id number] 03/14/25 14:03 03/07/25 03/14/25 13:24 14:01 Wound Center Nurse 1 #1 lt hallux -Current Size (cm) - Length 0.5 0.4 -Current Size (cm) - Width 0.5 0.4 -Current Size (cm) - Depth 0.3 0.2 -Total Square Cm 0.25 0.16 -Date of Last Picture (Recall this 03/14/25 field) -Photo Taken Yes -Epithelialization None Present -Tunneling No -Undermining/Tunneling No -Circular Undermining No -Exudate Amt Medium Small -Exudate Type Serosanguineous Serosanguineous -Wound Margin Distinct, Distinct, Outline Outline Attached Attached -Granulation Amt Small (1-33%) Small (1-33%) -Granulation Quality Lynch -Slough/Fibrin No -Necrosis Amt Medium (34-66%) None Present (0 %) -Necrotic Tissue Type Adherent Slough -Texture (Flaca-wound Skin Appearance) Assessed Assessed,Callus -Moisture (Flaca-wound Skin Appearance) Assessed Assessed -Color (Flaca-wound Skin Appearance) Assessed Assessed -Temperature (Flaca-wound Skin No Abnormality No Abnormality Appearance) (Pt Warm) (Pt Warm) -Tenderness on Palpation (Flaca-wound No No Skin Appearance) -Ulcer Cleansing Rinsed/ Rinsed/ Irrigated with Irrigated with Saline Saline -Foul Odor after Cleansing No -Anesthetic Used 5% Lidocaine 5% Lidocaine Gel Gel GREG - Nurse 2 - General Ulcer CM Notes Start: 03/07/25 13:24 Freq: Status: Active Protocol: Activity Type Activity Date Activity User E-sign Co-sign Detail Recorded Client Recorded Date Recorded By Document 03/07/25 13:43 [id number] 03/07/25 13:47 Document 03/14/25 14:10 [id number] 03/14/25 14:14 Edit Result 03/14/25 14:10 JF (1) [id number] 03/14/25 14:16 JF (1) #1 lt hallux - Clinical Debridement Subcutaneous => Muscle / Fascia - Tissue Removed Subcutaneous => Muscle - Debridement - Subq, 1st 20sq cm Yes => No - Debridement - Muscle / Fascia, 1st => Yes 20sq cm 03/07/25 03/14/25 13:43 14:10 Wound Center Nurse 2 #1 lt hallux -Time 13:44 14:11 -Correct Patient Yes Yes -Correct Side, Site, Position Yes Yes -Correct Procedure Yes Yes -Procedure Performed Yes Yes -Type of Procedure Debridement Debridement -Clinical Debridement Subcutaneous Muscle / Fascia -Tissue Removed Subcutaneous Muscle -Post Debridement (cm) - Length 0.5 0.6 -Post Debridement (cm) - Width 0.6 0.6 -Post Debridement (cm) - Depth 0.5 0.5 -Total Square (Post) (cm) 0.30 0.36 -Area of Debridement (cm) - Length 0.5 0.6 -Area of Debridement (cm) - Width 0.6 0.6 -Total Square (Area) (cm) 0.30 0.36 -Tunneling No No -Undermining/Tunneling No No -Circular Undermining No No -Wound/Ulcer Outcome Not Healed Not Healed -Ulcer Cleansing Rinsed/ Rinsed/ Irrigated with Irrigated with Saline Saline -Foul Odor after Cleansing No No -Bioengineered Tissue No No -Bleeding Controlled with Pressure Pressure -Treatment Response Procedure Procedure Tolerated Well Tolerated Well -Offloading No No -Debridement - Subq, 1st 20sq cm Yes No -Debridement - Muscle / Fascia, 1st Yes 20sq cm Pain Scale: 0-10 Numeric Is Patient Pain Free? Yes Yes WC - Nurse 3 - General Ulcer D/C NN Start: 03/07/25 13:24 Freq: Status: Active Protocol: Activity Type Activity Date Activity User E-sign Co-sign Detail Recorded Client Recorded Date Recorded By Document 03/07/25 13:47 [id number] 03/07/25 13:47 Document 03/14/25 14:33 [id number] 03/14/25 14:34 03/07/25 03/14/25 13:47 14:33 Wound Care Center Nurse 3 #1 lt hallux -Ulcer Cleansing Rinsed/ Not Cleansed Irrigated with Saline -Foul Odor after Cleansing No No -Primary Dressing Applied Promogran Olesya Matter -Other Dressing betadine -Primary Dressing Covered/Secured with Dry Gauze, Dry Gauze & Secured with Roll Gauze, Tape Secured with Tape -Promogran Olesya Matter 1 Pain Scale: 0-10 Numeric Is Patient Pain Free? Yes Yes WC - Visit Discharge Discharge Condition Stable Stable Ambulatory Status Ambulatory Ambulatory Transportation Private Auto Private Auto Medication Reconcilliation completed & Yes provided to patient/care provider Clinical Summary of Care Provided Yes Assessment/Plan Assessment/Plan (1) Non-pressure chronic ulcer of other part of left foot with necrosis of muscle: CODE(S): L97.523 - Non-pressure chronic ulcer of other part of left foot with necrosis of muscle PLAN: Patient was examined and evaluated. All findings were discussed with the patient. All questions were answered to the patient satisfaction. Excisional debridement down to including subcutaneous tissue, fascia and muscle of the full-thickness wound to the subleft hallux IPJ done with a number 5 mm dermal curette without incident. Predebridement measurement was 0.4 x 0.4 x 0.2cm. Postdebridement measurement 0.6 x 0.6 x 0.5 cm. The left great toe was white cleaned and patted dry. Betadine paint dry sterile dressing compression bra were donned. Patient will perform daily dressing changes. Will continue antibiotics until gone. Educated the patient on further conservative versus surgical treatment. Will recommend conservativetreatment with Connolly's extension [id number] orthotic or custom orthotics. If the patient fails conservative treatment we will need to move forward with IPJ arthroplasty which she is understanding of. Patient will follow-up with Dr. Sosa in 1 week 03/14/25 1451 Cosigner Signature (if applicable): CC: ~ Signed [facility]08-06-2025 Progress note Author Negrito Sosa [facility] Note Date/Time March 07, 2025 2:0 3pm [facility] [address] [place] [address] Progress Note - Wound Care 03/07/25 6369 MR#: [id number] Acct: [id number] Name: MAYUR WORTHINGTON Rep #:[id number] : 1985 39 From: Negrito WALSH PCP: ITZEL Davies Status:REG RCR Location: History of Present Illness Date of Service: 03/07/25 Chief Complaint: Full-thickness wound left great toe History of Wound: Patient has had a full-thickness wound to the great toe for the past 2 months slow to heal. Progress of Wound: Full-thickness wound left great toe Subjective Subjective Patient is a 39-year-old nondiabetic male presented wound care center today follow-up evaluation of full-thickness wound to the plantar aspect of the left hallux. Patient has been compliant with dressing changes. He admits to some maceration to the periwound. He is changing the dressing as discussed. Patientis not diabetic. He denies any pain. He did get his x-rays completed the otherday and is here to review them as well as the culture results. He denies trauma. Denies constitutional symptoms. No other pedal complaints at this time. Objective Data Objective Data Vital Signs: Vital Signs Temp Pulse Resp BP 97.0 F L 89 15 158/103 H 03/07/25 13:24 03/07/25 13:24 03/07/25 13:24 03/07/25 13:24 Physical Exam Narrative Vascular: DP and PT pulses palpable to the left lower extremity. Skin temperature is warm to warm from proximal ankles to distal digit bilateral. No focal increase is noted. Nonpitting edema appreciated to the left lower extremity. Neurological: Light touch intact. Patient does respond to painful stimuli. Dermatological: Full-thickness wound to the subleft hallux at the level of the IPJ measuring 0.5 x 0.6 x 0.5 cm. Positive probe to muscle with negative probe to bone. Periwound maceration is appreciated. No malodor is noted. Excisional debridement down to including subcutaneous tissue, fascia and muscle of the full-thickness wound to the subleft hallux IPJ done with a number 5 mm dermal curette without incident. Predebridement measurement was 0.3 x 0.3 x 0.2cm. Postdebridement measurement 0.5 x 0.6 x 0.5 cm. Muscle skeletal: Mild pain to palpation to full-thickness wound. No pain with calf pressure. Debridement Note Debridement Note Debridement Free Text: Excisional debridement down to including subcutaneous tissue, fascia and muscle of the full-thickness wound to the subleft hallux IPJ done with a number 5 mm dermal curette without incident. Predebridement measurement was 0.3 x 0.3 x 0.2 cm. Postdebridement measurement 0.5 x 0.6 x 0.5cm. Post-Debridement Measurements and Additional Note: Post-Debridement Measurements/Treatment - Nurse 1 - General Ulcer Assessment Start: 03/07/25 13:24 Freq: Status: Active Protocol: RACHELE Activity Type Activity Date Activity User E-sign Co-sign Detail Recorded Client Recorded Date Recorded By Document 03/07/25 13:24 ML [id number] 03/07/25 13:32 ML 03/07/25 13:24 WC - Today's Visit Information Type of service Follow-up Visit (Physician/PRODUCT PROMOTER SALES PERSON ) Arrival Mode Ambulatory Transfer Assistance None Patient Identification Verified (Name & Yes ) Patient Requires Transmission-Based No Precautions Vital Signs Temperature (97.8 F-99.1 F) 97.0 F L Temperature Source Temporal Pulse Rate (60-100) 89 Pulse Location Monitor Respiratory Rate (12-18) 15 Respiratory rate source Observation Blood Pressure (90/60-120/80) 158/103 H Blood Pressure Mean (mm Hg) 121 Source Monitor Position Sitting Blood Pressure Location Left Arm History Since Last Visit- (Skip if this is Patient's initial visit) Have you changed medications since your No last visit? Any new allergies or adverse reactions No Had a fall/change in ADL's that may No increase risk of falls Signs or symptoms of abuse and/or No neglect since last visit Has dressing in place as prescribed Yes Has compression in place as prescribed N/A Has offloadiing in place as prescribed N/A Experienced any changes in pain level or No management Pain Scale: 0-10 Numeric Is Patient Pain Free? Yes - Nurse 1 - General Ulcer Measurement Start: 03/07/25 13:24 Freq: Status: Active Protocol: Activity Type Activity Date Activity User E-sign Co-sign Detail Recorded Client Recorded Date Recorded By Document 03/07/25 13:24 ML [id number] 03/07/25 13:32 ML 03/07/25 13:24 Wound Center Nurse 1 #1 lt hallux -Current Size (cm) - Length 0.5 -Current Size (cm) - Width 0.5 -Current Size (cm) - Depth 0.3 -Total Square Cm 0.25 -Exudate Amt Medium -Exudate Type Serosanguineous -Wound Margin Distinct, Outline Attached -Granulation Amt Small (1-33%) -Necrosis Amt Medium (34-66%) -Necrotic Tissue Type Adherent Slough -Texture (Flaca-wound Skin Appearance) Assessed -Moisture (Flaca-wound Skin Appearance) Assessed -Color (Flaca-wound Skin Appearance) Assessed -Temperature (Flaca-wound Skin No Abnormality Appearance) (Pt Warm) -Tenderness on Palpation (Flaca-wound No Skin Appearance) -Ulcer Cleansing Rinsed/ Irrigated with Saline -Anesthetic Used 5% Lidocaine Gel GREG - Nurse 2 - General Ulcer CM Notes Start: 03/07/25 13:24 Freq: Status: Active Protocol: Activity Type Activity Date Activity User E-sign Co-sign Detail Recorded Client Recorded Date Recorded By Document 03/07/25 13:43 LAY [id number] 03/07/25 13:47 LAY 03/07/25 13:43 Wound Center Nurse 2 -Time 13:44 -Correct Patient Yes -Correct Side, Site, Position Yes -Correct Procedure Yes -Procedure Performed Yes -Type of Procedure Debridement -Clinical Debridement Subcutaneous -Tissue Removed Subcutaneous -Post Debridement (cm) - Length 0.5 -Post Debridement (cm) - Width 0.6 -Post Debridement (cm) - Depth 0.5 -Total Square (Post) (cm) 0.30 -Area of Debridement (cm) - Length 0.5 -Area of Debridement (cm) - Width 0.6 -Total Square (Area) (cm) 0.30 -Tunneling No -Undermining/Tunneling No -Circular Undermining No -Wound/Ulcer Outcome Not Healed -Ulcer Cleansing Rinsed/ Irrigated with Saline -Foul Odor after Cleansing No -Bioengineered Tissue No -Bleeding Controlled with Pressure -Treatment Response Procedure Tolerated Well -Offloading No -Debridement - Subq, 1st 20sq cm Yes Pain Scale: 0-10 Numeric Is Patient Pain Free? Yes GREG - Nurse 3 - General Ulcer D/C NN Start: 03/07/25 13:24 Freq: Status: Active Protocol: Activity Type Activity Date Activity User E-sign Co-sign Detail Recorded Client Recorded Date Recorded By Document 03/07/25 13:47 LAY [id number] 03/07/25 13:47 LAY 03/07/25 13:47 Wound Care Center Nurse 3 #1 lt hallux -Ulcer Cleansing Rinsed/ Irrigated with Saline -Foul Odor after Cleansing No -Other Dressing betadine -Primary Dressing Covered/Secured with Dry Gauze, Secured with Tape Pain Scale: 0-10 Numeric Is Patient Pain Free? Yes WC - Visit Discharge Discharge Condition Stable Ambulatory Status Ambulatory Transportation Private Auto Medication Reconcilliation completed & Yes provided to patient/care provider Clinical Summary of Care Provided Yes Assessment/Plan Assessment/Plan (1) Non-pressure chronic ulcer of other part of left foot with necrosis of muscle: CODE(S): L97.523 - Non-pressure chronic ulcer of other part of left foot with necrosis of muscle PLAN: Patient was examined and evaluated. All findings were discussed with the patient. All questions were answered to the patient satisfaction. Excisional debridement down to including subcutaneous tissue, fascia and muscle of the full-thickness wound to the subleft hallux IPJ done with a number 5 mm dermal curette without incident. Predebridement measurement was 0.3 x 0.3 x 0.2cm. Postdebridement measurement 0.5 x 0.6 x 0.5 cm. The area was flushed and white plain and patted dry. Betadine paint was applied to the wound as well as the periwound covered with dry sterile dressing and light compression wrap. Patient perform daily dressing changes. Patient shows evidence of bacterial growth, and group B strep. The patient be placed on amoxicillin 500 mg twice daily until gone. Patient has no drug allergies at this time. Educated patient the need to watch the draining of the full-thickness wound and he will need to change the bandage 2-3 times per day which he is understanding of. I educated the patient if we still have delayed healing he will need to move forward with surgical intervention with IPJ arthroplasty of the left hallux to be done at [facility]. Patient will follow-up with Dr. Sosa in 1 month 03/07/25 0282 <Electronically signed by Negrito Ssoa DPM> Cosigner Signature (if applicable): CC: ~ Signed [facility] Work Phone: [phone]) 399-595108-06-2025 Progress note [facility] [address] [place] [address] Progress Note - Wound Care 03/07/25 1359 MR#: [id number] Acct: [id number] Name: MAYUR WORTHINGTON Rep #:[id number] : 1985 39 From: Negrito WALSH PCP: ITZEL Davies Status:REG RCR Location: History of Present Illness Date of Service: 03/07/25 Chief Complaint: Full-thickness wound left great toe History of Wound: Patient has had a full-thickness wound to the great toe for the past 2 months slow to heal. Progress of Wound: Full-thickness wound left great toe Subjective Subjective Patient is a 39-year-old nondiabetic male presented wound care center today follow-up evaluation offull-thickness wound to the plantar aspect of the left hallux. Patient has been compliant with dressing changes. He admits to some maceration to the periwound. He is changing the dressing as discussed. Patientis not diabetic. He denies any pain. He did get his x-rays completed the otherday and is here to review them as well as the culture results. He denies trauma. Denies constitutional symptoms.No other pedal complaints at this time. Objective Data Objective Data Vital Signs: Vital Signs Temp Pulse Resp BP 97.0 F L 89 15 158/103 H 03/07/25 13:24 03/07/25 13:24 03/07/25 13:24 03/07/25 13:24 Physical Exam Narrative Vascular: DP and PT pulses palpable to the left lower extremity. Skin temperature is warm to warm from proximal ankles to distal digit bilateral. No focal increase is noted. Nonpitting edema appreciated to the left lower extremity. Neurological: Light touch intact. Patient does respond to painful stimuli. Dermatological: Full-thickness wound to the subleft hallux at the level of the IPJ measuring 0.5 x 0.6 x 0.5 cm. Positive probe to muscle with negative probe to bone. Periwound maceration is appreciated. No malodor is noted. Excisional debridement down to including subcutaneous tissue, fascia and muscle of the full-thickness wound to the subleft hallux IPJ done with a number 5 mm dermal curette without incident. Predebridement measurement was 0.3 x 0.3 x 0.2cm. Postdebridement measurement 0.5 x 0.6 x 0.5 cm. Muscle skeletal: Mild pain to palpation to full-thickness wound. No pain with calf pressure. Debridement Note Debridement Note Debridement Free Text: Excisional debridement down to including subcutaneous tissue, fascia and muscle of the full-thickness wound to the subleft hallux IPJ done with a number 5 mm dermal curette without incident. Predebridement measurement was 0.3 x 0.3 x 0.2 cm. Postdebridement measurement 0.5 x 0.6 x 0.5cm. Post-Debridement Measurements and Additional Note: Post-Debridement Measurements/Treatment - Nurse 1 - General Ulcer Assessment Start: 03/07/25 13:24 Freq: Status: Active Protocol: RACHELE Activity Type Activity Date Activity User E-sign Co-sign Detail Recorded Client Recorded Date Recorded By Document 03/07/25 13:24 ML [id number] 03/07/25 13:32 ML 03/07/25 13:24 WC - Today's Visit Information Type of service Follow-up Visit (Physician/PRODUCT PROMOTER SALES PERSON ) Arrival Mode Ambulatory Transfer Assistance None Patient Identification Verified (Name & Yes ) Patient Requires Transmission-Based No Precautions Vital Signs Temperature (97.8 F-99.1 F) 97.0 F L Temperature Source Temporal Pulse Rate (60-100) 89 Pulse Location Monitor Respiratory Rate (12-18) 15 Respiratory rate source Observation Blood Pressure (90/60-120/80) 158/103 H Blood Pressure Mean (mm Hg) 121 Source Monitor Position Sitting Blood Pressure Location Left Arm History Since Last Visit- (Skip if this is Patient's initial visit) Have you changed medications since your No last visit? Any new allergies or adverse reactions No Had a fall/change in ADL's that may No increase risk of falls Signs or symptoms of abuse and/or No neglect since last visit Has dressing in place as prescribed Yes Has compression in place as prescribed N/A Has offloadiing in place as prescribed N/A Experienced any changes in pain level or No management Pain Scale: 0-10 Numeric Is Patient Pain Free? Yes - Nurse 1 - General Ulcer Measurement Start: 03/07/25 13:24 Freq: Status: Active Protocol: Activity Type Activity Date Activity User E-sign Co-sign Detail Recorded Client Recorded Date Recorded By Document 03/07/25 13:24 ML [id number] 03/07/25 13:32 ML 03/07/25 13:24 Wound Center Nurse 1 #1 lt hallux -Current Size (cm) - Length 0.5 -Current Size (cm) - Width 0.5 -Current Size (cm) - Depth 0.3 -Total Square Cm 0.25 -Exudate Amt Medium -Exudate Type Serosanguineous -Wound Margin Distinct, Outline Attached -Granulation Amt Small (1-33%) -Necrosis Amt Medium (34-66%) -Necrotic Tissue Type Adherent Slough -Texture (Flaca-wound Skin Appearance) Assessed -Moisture (Flaca-wound Skin Appearance) Assessed -Color (Flaca-wound Skin Appearance) Assessed -Temperature (Flaca-wound Skin No Abnormality Appearance) (Pt Warm) -Tenderness on Palpation (Flaca-wound No Skin Appearance) -Ulcer Cleansing Rinsed/ Irrigated with Saline -Anesthetic Used 5% Lidocaine Gel WC - Nurse 2 - General Ulcer CM Notes Start: 03/07/25 13:24 Freq: Status: Active Protocol: Activity Type Activity Date Activity User E-sign Co-sign Detail Recorded Client Recorded Date Recorded By Document 03/07/25 13:43 JF [id number] 03/07/25 13:47 03/07/25 13:43 Wound Center Nurse 2 -Time 13:44 -Correct Patient Yes -Correct Side, Site, Position Yes -Correct Procedure Yes -Procedure Performed Yes -Type of Procedure Debridement -Clinical Debridement Subcutaneous -Tissue Removed Subcutaneous -Post Debridement (cm) - Length 0.5 -Post Debridement (cm) - Width 0.6 -Post Debridement (cm) - Depth 0.5 -Total Square (Post) (cm) 0.30 -Area of Debridement (cm) - Length 0.5 -Area of Debridement (cm) - Width 0.6 -Total Square (Area) (cm) 0.30 -Tunneling No -Undermining/Tunneling No -Circular Undermining No -Wound/Ulcer Outcome Not Healed -Ulcer Cleansing Rinsed/ Irrigated with Saline -Foul Odor after Cleansing No -Bioengineered Tissue No -Bleeding Controlled with Pressure -Treatment Response Procedure Tolerated Well -Offloading No -Debridement - Subq, 1st 20sq cm Yes Pain Scale: 0-10 Numeric Is Patient Pain Free? Yes - Nurse 3 - General Ulcer D/C NN Start: 03/07/25 13:24 Freq: Status: Active Protocol: Activity Type Activity Date Activity User E-sign Co-sign Detail Recorded Client Recorded Date Recorded By Document 03/07/25 13:47 LAY [id number] 03/07/25 13:47 LAY 03/07/25 13:47 Wound Care Center Nurse 3 #1 lt hallux -Ulcer Cleansing Rinsed/ Irrigated with Saline -Foul Odor after Cleansing No -Other Dressing betadine -Primary Dressing Covered/Secured with Dry Gauze, Secured with Tape Pain Scale: 0-10 Numeric Is Patient Pain Free? Yes WC - Visit Discharge Discharge Condition Stable Ambulatory Status Ambulatory Transportation Private Auto Medication Reconcilliation completed & Yes provided to patient/care provider Clinical Summary of Care Provided Yes Assessment/Plan Assessment/Plan (1) Non-pressure chronic ulcer of other part of left foot with necrosis of muscle: CODE(S): L97.523 - Non-pressure chronic ulcer of other part of left foot with necrosis of muscle PLAN: Patient was examined and evaluated. All findings were discussed with the patient. All questions were answered to the patient satisfaction. Excisional debridement down to including subcutaneous tissue, fascia and muscle of the full-thickness wound to the subleft hallux IPJ done with a number 5 mm dermal curette without incident. Predebridement measurement was 0.3 x 0.3 x 0.2cm. Postdebridement measurement 0.5 x 0.6 x 0.5 cm. The area was flushed and white plain and patted dry. Betadine paint was applied to the wound as well as the periwound covered with dry sterile dressing and light compression wrap. Patient perform daily dressingchanges. Patient shows evidence of bacterial growth, and group B strep. The patient be placed on [id number] mg twice daily until gone. Patient has no drug allergies at this time. Educated patient the need to watch the draining of the full-thickness wound and he will need to change the bandage 2-3 times per day which he is understanding of. I educated the patient if we still have delayed healing he will need to move forward with surgical intervention with IPJ arthroplasty of the left hallux to be done at [facility]. Patient will follow-up with Dr. Sosa in 1 month 03/07/25 1403 Cosigner Signature (if applicable): CC: ~ Signed [facility]08-06-2025 Radiology Diagnostic study note [facility] Imaging Services [address] [place] [address] Foot min 3 Views MR#: [id number] Acct: [id number] Name: MAYUR WORTHINGTON Rep #: [id number] : 1985 M 39 From: Mady Peck MD PCP: ITZEL Davies Status: REG CLI Study:Foot min 3 Views Date of Exam: 12/24 Exam# [id number] Ordering Dr: Amandeep Sosa DPM PROCEDURE: FOOT MIN 3 VIEWS 03/06/2025 REASON FOR EXAM: HALLUX ULCER TECHNIQUE: FOOT MIN 3 VIEWS COMPARISON: No FINDINGS: 1st digit plantar soft tissue ulceration. No soft tissue gas otherwise noted. No evidence of bone infection. 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 RAD/Foot min 3 Views IMPRESSION: 1st digit plantar soft tissue ulceration. Reading Location: [place] [address] CC: DPM Dr. Negrito Sosa; SENIOR OFFICE SUPPORT ASSISTANT SOSA-C [place] Negro ~ Blind Aide: Signed [facility]07-31-2025 History and physical note Author Negrito Sosa [facility] Note Date/Time March 01, 2025 2:33 pm [facility] [address] [place] [address] H&P Exam - Wound Care 03/01/25 1429 MR#: [id number] Acct: [id number] Name: MAYUR WORTHINGTON Rep #:[id number] : 1985 39 From: Negrito Aranda PM PCP: ITZEL Davies Status:REG RCR Location: History of Present Illness Date of Service: 03/01/25 Chief Complaint: Full-thickness wound left great toe History of Wound: Patient has had a full-thickness wound to the great toe for the past 2 months slow to heal. Progress of Wound: Patient is a 39-year-old nondiabetic male presenting to wound care center today for follow-up evaluation and treatment for the full-thickness wound to the plantar aspect of the left great toe. 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 Patient stateshis wound started as a callus which was debrided by his drum operator that resultedin a full-thickness wound that has been slow to heal. He has not been taking antibiotics recently but has in the past. Treatment has not been going great per his words. He would like to get this healed as it has been coming and issuefor the past few months. He works a very demanding job and has to be on his feet for long peers of time. He denies trauma. Denies constitutional symptoms. No other pedal complaints at this time. [facility] Medical History Anxiety Depression Former smoker Hypertension Non-smoker Umbilical hernia Ventral hernia with obstruction but no gangrene Home Medications ?Medication ?Instructions ?Recorded ?Last Taken ?Type lisdexamfetamine 70 mg capsule 70 mg PO DAILY 12/03/15 Unknown History (Judy) albuterol sulfate 90 mcg/actuation 2 puff inhalation Q 4H PRN 04/17/23 Unknown History aerosol inhaler shortness of breath cetirizine 10 mg tablet (24Hour 10 mg PO DAILY allergi es 04/17/23 Unknown History Allergy) fluticasone propionate 50 2 spray intranasal DAILY all ergies 04/17/23 Unknown History mcg/actuation nasal spray,suspension hydrochlorothiazide 12.5 mg capsule 12.5 mg PO DAILY H TN 04/17/23 Unknown History lisinopril 10 mg tablet 10 mg PO DAILY 04/17/23 Unkn own History meloxicam 15 mg tablet 15 mg PO DAILY 04/17/23 Unkn own History omeprazole 20 mg capsule,delayed 20 mg PO DAILY Unknown History release sertraline 100 mg tablet 100 mg PO DAILY depression 0 04/17/23 Unknown History docusate sodium 100 mg capsule 100 mg PO BID 14 days # 28 caps 04/20/23 Unknown Rx oxycodone 5 mg tablet 5 mg PO Q6H PRN PRN Pain Sco re 04/20/23 Unknown Rx 4-10 10 days #30 tabs enoxaparin 40 mg/0.4 mL 40 mg (0.4 mL) subcut DAILY 5 days 04/25/23 Unknown Rx subcutaneous syringe #2 mL econazole nitrate 1 % topical cream applic topical BID 02/28/25 Unknown History Allergy/AdvReac Type Severity Reaction Status Date / Time latex Allergy Rash Verified 02/28/25 14:11 Surgical History History of umbilical hernia repair History of umbilical hernia repair S/P small bowel resection Social History Smoking Status: Former smoker Physical Exam Narrative Vascular: DP and PT pulses palpable. CFT brisk. No erythema or proximal streaking. Skin temperature is warm to warm with no focal increase. Neurologic: Light touch and epicritic sensations intact. Protective sensation intact to 10/10 sites with 5.07 [place] monofilament. Dermatologic: Evidence of full-thickness wound to the plantar aspect of the lefthallux measuring 0.7 x 0.7 x 0.5 cm. Wound base is fibrogranular nature with periwound hyperkeratotic tissue. Excisional debridement down to including subcutaneous tissue with of the left hallux full-thickness wound done with a number 5 mm dermal curette without incident. Predebridement measurement was 0.5 x 0.5 x 0.2 cm. Postdebridement measurement is 0.7 x 0.7 x 0.5 cm. Musculoskeletal: Mild pain to palpation to full-thickness wound plantar aspect left hallux. No pain with calf pressure. Debridement Note Debridement Note Debridement Free Text: Excisional debridement down to including subcutaneous tissue with of the left hallux full-thickness wound done with a number 5 mm dermal curette without incident. Predebridement measurement was 0.5 x 0.5 x 0.2 cm. Postdebridement measurement is 0.7 x 0.7 x 0.5 cm. Post-Debridement Measurements and Additional Note: Post-Debridement Measurements/Treatment WC - Nurse 1 - General Ulcer Assessment Start: 02/28/25 14:04 Freq: Status: Active Protocol: YAHIREXPalmira Activity Type Activity Date Activity User E-sign Co-sign Detail Recorded Client Recorded Date Recorded By Document 02/28/25 14:06 CHRISTA [id number] 02/28/25 14:10 02/28/25 14:06 - Today's Visit Information Type of service Initial Visit Arrival Mode Ambulatory Patient Identification Verified (Name & Yes ) Height and Weight Height 6 ft 2 in Vital Signs Temperature (97.8 F-99.1 F) 97.0 F L Temperature Source Temporal Pulse Rate (60-100) 100 Pulse Location Monitor Respiratory Rate (12-18) 18 Respiratory rate source Observation Oxygen Delivery Method Room Air Blood Pressure (90/60-120/80) 153/100 H Blood Pressure Mean 117 Source Monitor Position Semi-Fowlers Blood Pressure Location Left Arm History Since Last Visit- (Skip if this is Patient's initial visit) Left Footwear Regular Shoe Right Footwear Regular Shoe Pain Scale: 0-10 Numeric Is Patient Pain Free? Yes Communication Assessment Preferred language [place] Citizen Able to Read Yes Able to Write Yes Communication Tools None Caregiver Communication Skills No Impairment Impairment Right Hearing Abillity Normal Left Hearing Abillity Normal Teaching Assessment Preferences Verbal,Written, Demonstration Barriers to Learning None Readiness To Learn Excellent Willingness to Engage in Self Management High Activies Readiness to Engage in Self Management High Activities Anxiety Level Anxious Cooperation Cooperative Perception Coherent Interest in Health Problem Asks Questions Education Importance Acknowledges Need Does Patient Smoke tobacco or other No substances Smoking Status Former smoker Is Patient Diabetic No Functional Assessment Recent Decline in Ability to Perform Denies Any Declines [facility] Nurse 1 - General Ulcer Measurement Start: 02/28/25 14:04 Freq: Status: Active Protocol: Activity Type Activity Date Activity User E-sign Co-sign Detail Recorded Client Recorded Date Recorded By Document 02/28/25 14:06 [id number] 02/28/25 14:10 02/28/25 14:06 Wound Center Nurse 1 #1 lt hallux -Current Size (cm) - Length 0.6 -Current Size (cm) - Width 0.5 -Current Size (cm) - Depth 0.4 -Total Square Cm 0.30 -Date of Last Picture (Recall this 02/28/25 field) -Exudate Amt Small -Exudate Type Serosanguineous -Wound Margin Thickened -Granulation Amt Large (67-100%) -Granulation Quality Lynch,Red -Texture (Flaca-wound Skin Appearance) Assessed,Callus -Moisture (Flaca-wound Skin Appearance) Assessed -Color (Flaca-wound Skin Appearance) Not Assessed -Temperature (Flaca-wound Skin No Abnormality Appearance) (Pt Warm) -Tenderness on Palpation (Flaca-wound No Skin Appearance) -Ulcer Cleansing Soap and Water -Foul Odor after Cleansing No -Anesthetic Used 5% Lidocaine Gel - Nurse 2 - General Ulcer CM Notes Start: 02/28/25 14:04 Freq: Status: Active Protocol: Activity Type Activity Date Activity User E-sign Co-sign Detail Recorded Client Recorded Date Recorded By Document 02/28/25 14:41 [id number] 02/28/25 14:44 02/28/25 14:41 Wound Center Nurse 2 -Time 14:41 -Correct Patient Yes -Correct Side, Site, Position Yes -Correct Procedure Yes -Procedure Performed Yes -Type of Procedure Debridement -Clinical Debridement Subcutaneous -Tissue Removed Subcutaneous -Post Debridement (cm) - Length 0.7 -Post Debridement (cm) - Width 0.7 -Post Debridement (cm) - Depth 0.5 -Total Square (Post) (cm) 0.49 -Area of Debridement (cm) - Length 0.7 -Area of Debridement (cm) - Width 0.7 -Total Square (Area) (cm) 0.49 -Tunneling No -Undermining/Tunneling No -Circular Undermining No -Wound/Ulcer Outcome Not Healed -Ulcer Cleansing Rinsed/ Irrigated with Saline -Foul Odor after Cleansing No -Bioengineered Tissue No -Bleeding Controlled with Pressure -Treatment Response Procedure Tolerated Well -Offloading No -Debridement - Subq, 1st 20sq cm Yes Pain Scale: 0-10 Numeric Is Patient Pain Free? Yes - Nurse 3 - General Ulcer D/C NN Start: 02/28/25 14:04 Freq: Status: Active Protocol: Activity Type Activity Date Activity User E-sign Co-sign Detail Recorded Client Recorded Date Recorded By Document 02/28/25 14:53 [id number] 02/28/25 14:54 02/28/25 14:53 Wound Care Center Nurse 3 #1 lt hallux -Ulcer Cleansing Not Cleansed -Foul Odor after Cleansing No -Primary Dressing Covered/Secured with Dry Gauze, Secured with Tape -Other Covering betadine Pain Scale: 0-10 Numeric Is Patient Pain Free? Yes WC - Visit Discharge Discharge Condition Stable Ambulatory Status Ambulatory Transportation Private Auto Medication Reconcilliation completed & Yes provided to patient/care provider Lab / Micro Data Micro: Microbiology 02/28/25 16:06 Wound - Toe Gram Stain - Final 02/28/25 16:06 Wound - Toe Wound Culture - Preliminary Gram positive organism Assessment/Plan Assessment/Plan (1) Non-pressure chronic ulcer of other part of left foot with fat layer exposed: CODE(S): L97.522 - Non-pressure chronic ulcer of other part of left foot with fat layer exposed PLAN: Patient was examined and evaluated. All findings were discussed with the patient. All questions were answered to the patient satisfaction. Excisional debridement down to including subcutaneous tissue with of the left hallux full-thickness wound done with a number 5 mm dermal curette without incident. Predebridement measurement was 0.5 x 0.5 x 0.2 cm. Postdebridement measurement is 0.7 x 0.7 x 0.5 cm. There is white plan to pad a dry. Culture was taken. Patient will be given an order for x-rays to rule out any underlyingbone infection or concern for deep tissue abscess. The area was dressed with Betadine soaked gauze dry sterile dressing and light compression wrap. Patient continue daily dressing changes. At this time there is no concern for surgical intervention but will be evaluating for any suspicious on plain film x-rays for any bone infection involvement or soft tissue involvement that would require surgical intervention. At this time we will continue patient wound care Patient will follow-up with Dr. Sosa in 1 week for further evaluation. (2) Pain in left toe(s): CODE(S): M79.675 - Pain in left toe(s) 03/01/25 1433 <Electronically signed by Negrito Sosa DPM> Cosigner Signature (if applicable): CC: ~ Signed [facility] Work Phone: 1(412) 896-881407-31-2025 History and physical note [facility] [address] [place] [id number] H&P Exam - Wound Care 03/01/25 1429 MR#: [id number] Acct: [id number] Name: MAYUR WORTHINGTON Rep #:[id number] : 1985 39 From: Negrito WALSH PCP: ITZEL Davies Status:REG RCR Location: History of Present Illness Date of Service: 03/01/25 Chief Complaint: Full-thickness wound left great toe History of Wound: Patient has had a full-thickness wound to the great toe for the past 2 months slow to heal. Progress of Wound: Patient is a 39-year-old nondiabetic male presenting to wound care center today for follow-up evaluation and treatment for the full-thickness wound to the plantar aspect of the left great toe. 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 Patient stateshis wound started as a callus which was debrided by his drum operator that resultedin a full-thickness wound that has been slow to heal. He has not been taking antibiotics recently but has in the past. Treatment has not been going great per his words. He would like to get this healed as it has been coming and issuefor the past few months. He works a very demanding job and has to be on his feet for long peers of time. He denies trauma. Denies constitutional symptoms. No other pedal complaints at this time. [facility] Medical History Anxiety Depression Former smoker Hypertension Non-smoker Umbilical hernia Ventral hernia with obstruction but no gangrene Home Medications ?Medication ?Instructions ?Recorded ?Last Taken ?Type lisdexamfetamine 70 mg capsule 70 mg PO DAILY 12/03/15 Unknown History (Judy) albuterol sulfate 90 mcg/actuation 2 puff inhalation Q 4H PRN 04/17/23 Unknown History aerosol inhaler shortness of breath cetirizine 10 mg tablet (24Hour 10 mg PO DAILY allergi es 04/17/23 Unknown History Allergy) fluticasone propionate 50 2 spray intranasal DAILY all ergies 04/17/23 Unknown History mcg/actuation nasal spray,suspension hydrochlorothiazide 12.5 mg capsule 12.5 mg PO DAILY H TN 04/17/23 Unknown History lisinopril 10 mg tablet 10 mg PO DAILY 04/17/23 Unkn own History meloxicam 15 mg tablet 15 mg PO DAILY 04/17/23 Unkn own History omeprazole 20 mg capsule,delayed 20 mg PO DAILY Unknown History release sertraline 100 mg tablet 100 mg PO DAILY depression 0 04/17/23 Unknown History docusate sodium 100 mg capsule 100 mg PO BID 14 days # 28 caps 04/20/23 Unknown Rx oxycodone 5 mg tablet 5 mg PO Q6H PRN PRN Pain Sco re 04/20/23 Unknown Rx 4-10 10 days #30 tabs enoxaparin 40 mg/0.4 mL 40 mg (0.4 mL) subcut DAILY 5 days 04/25/23 Unknown Rx subcutaneous syringe #2 mL econazole nitrate 1 % topical cream applic topical BID 02/28/25 Unknown History Allergy/AdvReac Type Severity Reaction Status Date / Time latex Allergy Rash Verified 02/28/25 14:11 Surgical History History of umbilical hernia repair History of umbilical hernia repair S/P small bowel resection Social History Smoking Status: Former smoker Physical Exam Narrative Vascular: DP and PT pulses palpable. CFT brisk. No erythema or proximal streaking. Skin temperatureis warm to warm with no focal increase. Neurologic: Light touch and epicritic sensations intact. Protective sensation intact to 10/10 siteswith 5.07 [place] monofilament. Dermatologic: Evidence of full-thickness wound to the plantar aspect of the lefthallux measuring 0.7 x 0.7 x 0.5 cm. Wound base is fibrogranular nature with periwound hyperkeratotic tissue. Excisional debridement down to including subcutaneous tissue with of the left hallux full-thicknesswound done with a number 5 mm dermal curette without incident. Predebridement measurement was 0.5 x0.5 x 0.2 cm. Postdebridement measurement is 0.7 x 0.7 x 0.5 cm. Musculoskeletal: Mild pain to palpation to full-thickness wound plantar aspect left hallux. No painwith calf pressure. Debridement Note Debridement Note Debridement Free Text: Excisional debridement down to including subcutaneous tissue with of the left hallux full-thickness wound done with a number 5 mm dermal curette without incident. Predebridement measurement was 0.5 x 0.5 x 0.2 cm. Postdebridement measurement is 0.7 x 0.7 x 0.5 cm. Post-Debridement Measurements and Additional Note: Post-Debridement Measurements/Treatment WC - Nurse 1 - General Ulcer Assessment Start: 02/28/25 14:04 Freq: Status: Active Protocol: GREG.JONATHAN Activity Type Activity Date Activity User E-sign Co-sign Detail Recorded Client Recorded Date Recorded By Document 02/28/25 14:06 [id number] 02/28/25 14:10 02/28/25 14:06 - Today's Visit Information Type of service Initial Visit Arrival Mode Ambulatory Patient Identification Verified (Name & Yes ) Height and Weight Height 6 ft 2 in Vital Signs Temperature (97.8 F-99.1 F) 97.0 F L Temperature Source Temporal Pulse Rate (60-100) 100 Pulse Location Monitor Respiratory Rate (12-18) 18 Respiratory rate source Observation Oxygen Delivery Method Room Air Blood Pressure (90/60-120/80) 153/100 H Blood Pressure Mean 117 Source Monitor Position Semi-Fowlers Blood Pressure Location Left Arm History Since Last Visit- (Skip if this is Patient's initial visit) Left Footwear Regular Shoe Right Footwear Regular Shoe Pain Scale: 0-10 Numeric Is Patient Pain Free? Yes Communication Assessment Preferred language [place] Citizen Able to Read Yes Able to Write Yes Communication Tools None Caregiver Communication Skills No Impairment Impairment Right Hearing Abillity Normal Left Hearing Abillity Normal Teaching Assessment Preferences Verbal,Written, Demonstration Barriers to Learning None Readiness To Learn Excellent Willingness to Engage in Self Management High Activies Readiness to Engage in Self Management High Activities Anxiety Level Anxious Cooperation Cooperative Perception Coherent Interest in Health Problem Asks Questions Education Importance Acknowledges Need Does Patient Smoke tobacco or other No substances Smoking Status Former smoker Is Patient Diabetic No Functional Assessment Recent Decline in Ability to Perform Denies Any Declines - Nurse 1 - General Ulcer Measurement Start: 02/28/25 14:04 Freq: Status: Active Protocol: Activity Type Activity Date Activity User E-sign Co-sign Detail Recorded Client Recorded Date Recorded By Document 02/28/25 14:06 [email or web address] [id number] 02/28/25 14:10 02/28/25 14:06 Wound Center Nurse 1 #1 lt hallux -Current Size (cm) - Length 0.6 -Current Size (cm) - Width 0.5 -Current Size (cm) - Depth 0.4 -Total Square Cm 0.30 -Date of Last Picture (Recall this 02/28/25 field) -Exudate Amt Small -Exudate Type Serosanguineous -Wound Margin Thickened -Granulation Amt Large (67-100%) -Granulation Quality Lynch,Red -Texture (Flaca-wound Skin Appearance) Assessed,Callus -Moisture (Flaca-wound Skin Appearance) Assessed -Color (Flaca-wound Skin Appearance) Not Assessed -Temperature (Flaca-wound Skin No Abnormality Appearance) (Pt Warm) -Tenderness on Palpation (Flaca-wound No Skin Appearance) -Ulcer Cleansing Soap and Water -Foul Odor after Cleansing No -Anesthetic Used 5% Lidocaine Gel WC - Nurse 2 - General Ulcer CM Notes Start: 02/28/25 14:04 Freq: Status: Active Protocol: Activity Type Activity Date Activity User E-sign Co-sign Detail Recorded Client Recorded Date Recorded By Document 02/28/25 14:41 [id number] 02/28/25 14:44 02/28/25 14:41 Wound Center Nurse 2 -Time 14:41 -Correct Patient Yes -Correct Side, Site, Position Yes -Correct Procedure Yes -Procedure Performed Yes -Type of Procedure Debridement -Clinical Debridement Subcutaneous -Tissue Removed Subcutaneous -Post Debridement (cm) - Length 0.7 -Post Debridement (cm) - Width 0.7 -Post Debridement (cm) - Depth 0.5 -Total Square (Post) (cm) 0.49 -Area of Debridement (cm) - Length 0.7 -Area of Debridement (cm) - Width 0.7 -Total Square (Area) (cm) 0.49 -Tunneling No -Undermining/Tunneling No -Circular Undermining No -Wound/Ulcer Outcome Not Healed -Ulcer Cleansing Rinsed/ Irrigated with Saline -Foul Odor after Cleansing No -Bioengineered Tissue No -Bleeding Controlled with Pressure -Treatment Response Procedure Tolerated Well -Offloading No -Debridement - Subq, 1st 20sq cm Yes Pain Scale: 0-10 Numeric Is Patient Pain Free? Yes - Nurse 3 - General Ulcer D/C NN Start: 02/28/25 14:04 Freq: Status: Active Protocol: Activity Type Activity Date Activity User E-sign Co-sign Detail Recorded Client Recorded Date Recorded By Document 02/28/25 14:53 [id number] 02/28/25 14:54 02/28/25 14:53 Wound Care Center Nurse 3 #1 lt hallux -Ulcer Cleansing Not Cleansed -Foul Odor after Cleansing No -Primary Dressing Covered/Secured with Dry Gauze, Secured with Tape -Other Covering betadine Pain Scale: 0-10 Numeric Is Patient Pain Free? Yes WC - Visit Discharge Discharge Condition Stable Ambulatory Status Ambulatory Transportation Private Auto Medication Reconcilliation completed & Yes provided to patient/care provider Lab / Micro Data Micro: Microbiology 02/28/25 16:06 Wound - Toe Gram Stain - Final 02/28/25 16:06 Wound - Toe Wound Culture - Preliminary Gram positive organism Assessment/Plan Assessment/Plan (1) Non-pressure chronic ulcer of other part of left foot with fat layer exposed: CODE(S): L97.522 - Non-pressure chronic ulcer of other part of left foot with fat layer exposed PLAN: Patient was examined and evaluated. All findings were discussed with the patient. All questions were answered to the patient satisfaction. Excisional debridement down to including subcutaneous tissue with of the left hallux full-thicknesswound done with a number 5 mm dermal curette without incident. Predebridement measurement was 0.5 x0.5 x 0.2 cm. Postdebridement measurement is 0.7 x 0.7 x 0.5 cm. There is white plan to pad a dry. Culture was taken. Patient will be given an order for x-rays to rule out any underlyingbone infection or concern for deep tissue abscess. The area was dressed with Betadine soaked gauze dry sterile dressing and light compression wrap. Patient continue daily dressing changes. At this time there is no concern for surgical intervention but will be evaluating for any suspicious on plain film x-rays for any bone infection involvement or soft tissue involvement that would require surgical intervention. At this time we will continue patient wound care Patient will follow-up with Dr. Sosa in 1 week for further evaluation. (2) Pain in left toe(s): CODE(S): M79.675 - Pain in left toe(s) 03/01/25 1433 Cosigner Signature (if applicable): CC: ~ Signed [facility]07-30-2025 Evaluation note* Diagnosis Onset Date Resolution Status Admit Date Pain in left toe(s) acute February 28, 2025 1:42pm Non-pressure chronic ulcer o f other part of left foot with fat layer exposed chronic February 28, 2025 1:42pm [facility] Work Phone: 1(987) 938-727407-30-2025 Evaluation note* Diagnosis Onset Date Resolution Status Admit Date Pain in left toe(s) acute February 28, 2025 1:42pm Non-pressure chronic ulcer o f other part of left foot with fat layer exposed chronic February 28 1:42pm 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 chronic March 14, 2025 2:00pm [facility] Work Phone: 1(451) 790-480107-30-2025 Evaluation note* Diagnosis Onset Date Resolution Status Admit Date Pain in left toe(s) acute February 28, 2025 1:42pm Non-pressure chronic ulcer o f other part of left foot with fat layer exposed chronic February 28, 2025 1:42pm Osteoarthritis of left foot acute March 28, 2025 2:00pm 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 chronic March 28, 2025 2:00pm [facility] Work Phone: 1(680) 608-506306-24-2025 Telephone encounter Note* Telephone Encounter - Fela Valdez LPN - 01/23/2025 1:41 PM EDT Images from the original note were not included. Fax rec'd from pharmacy noting PA is needed. Completed this electronically and approved. Prior authorization approved Payer: [employer] [phone] Note from payer: Your PA request has been approved. Additional information will be provided in the approval communication. (Message [id number]) Approval Details Authorized from January 23, 2025 to January 23, 2026 Electronic appeal: Not supported View History Pharmacy notified. [facility]06-24-2025 Miscellaneous Notes* Telephone Encounter - Fela Valdez LPN - 01/23/2025 1:41 PM EDT Images from the original note were not included. Fax rec'd from pharmacy noting PA is needed. Completed this electronically and approved. Prior authorization approved Payer: [employer] [phone] Note from payer: Your PA request has been approved. Additional information will be provided in the approval communication. (Message [id number]) Approval Details Authorized from January 23, 2025 to January 23, 2026 Electronic appeal: Not supported View History Pharmacy notified. [facility] Instructions* Patient Instructions* Clemente Negro 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 - 01/16/2025 11:47 AM EDT We discussed your blood pressure: - Your blood pressure today was 140/80, which is an improvement from your last visit in September when it was 160/?. This is likely due to your ongoing weight loss efforts. - You are currently taking Lisinopril and Hydrochlorothiazide. No changes to your blood pressure medications are needed at this time. - Please continue your weight loss efforts, as this will further help lower your blood pressure. - You mentioned not having a blood pressure cuff that fits. Please consider ordering a larger cuff to monitor your blood pressure at home. We discussed your back pain and recent imaging results: - Your x-rays show mild scoliosis and multilevel mild degenerative disc disease in your lumbar spine, with some mild osteophyte (bone spur) formation. This is likely related to your history of being overweight. - The scoliosis is very mild and not progressive, so no specific treatment is needed for it. - Your symptoms of pain radiating down both legs are more consistent with sciatica, which may be caused by a bulging disc pressing on the sciatic nerve. - Weight loss will help reduce strain on your back and improve your symptoms over time. - You are currently taking Meloxicam and Tylenol for pain. Continue these as directed, but avoid taking Meloxicam if you are prescribed prednisone in the future. - You previously tried a short course of prednisone, which provided temporary relief. If your symptoms persist, we may consider a longer course of prednisone or an MRI to evaluate further. - Physical therapy is the next step if your symptoms do not improve. You mentioned remembering and practicing some stretches from previous physical therapy sessions, which is great--please continue these. We discussed your weight loss progress: - You have lost 20 pounds since September, bringing your total weight loss to 23 pounds. This is excellent progress--keep up the good work! - You are still taking Wegovy 0.5 mg, which is working well for you. No changes to your dose are needed at this time. - You mentioned increasing your protein intake, which is a positive step in your weight loss journey. We discussed your medications: - A 3-month refill for Vyvanse 70 mg has been sent to your preferred [facility] pharmacy. - A refill for your Albuterol inhaler has also been sent to your pharmacy, as your current inhaler has . Follow-up instructions: - Monitor your blood pressure at home once you have a properly fitting cuff. - Continue your weight loss efforts, as this will help improve both your blood pressure and back pain. - If your back pain worsens or you develop new symptoms such as bowel or bladder incontinence, please contact our office immediately. - If your sciatica symptoms persist or worsen, we may proceed with an MRI or refer you to physical therapy. [facility] History of Present illness Narrative* Clemente Negro APRN.CNP - 01/16/2025 11:40 AM EDT Chief Complaint Patient presents with: F/U 1 month: BP HPI Mayur Worthington is a 39 year old male who presents here today for above reason. Mayur Worthington is a 39-year-old male with a history of HTN, obesity, and asthma, presenting for a blood pressure check and evaluation of back pain. Mayur reports a recent diagnosis of mild scoliosis and multilevel mild degenerative disc disease following lumbar spine x-rays. He has been experiencing lower back pain radiating down both legs, whichhe suspects may be sciatica. The pain is exacerbated by walking and moving, particularly during his 8-12 hour work shifts, but is alleviated when standing still or lifting objects. He has been takingmeloxicam and Tylenol for pain management, but reports limited relief. A recent short course of prednisone provided temporary relief, but symptoms recurred after completion. He has previously undergone physical therapy and continues to perform prescribed stretches at home. He denies bowel or bladder incontinence. Mayur is also requesting refills for his Vyvanse 70 mg, which he reports is effective, and his albuterol inhaler, which has . He notes increased use of the inhaler during allergy season. Additionally, Mayur is on Wegovy 0.5 mg for weight management and has lost 23 lbs since September, bringing his current weight to 354 lbs. He has increased his protein intake as part of his weight lossregimen. He is also on lisinopril and hydrochlorothiazide for blood pressure management, but does not monitor his blood pressure at home due to the lack of a properly fitting cuff. Past medical history, appointments, medications, allergies reviewed. EXAM: BP 140/88 (BP Site: Left Arm, BP Position: Sitting, BP Cuff Size: Large Adult) Pulse 82 Resp 18 Wt (!) 160.6 kg (354 lb) BMI 45.45 kg/m General Appearance: Well appearing, alert, in no acute distress, well-hydrated, well nourished. andObese. Lungs: Lungs clear to auscultation. No wheezing, rhonchi, rales.. Heart: RRR without murmur, gallop, or rubs. No ectopy. Musculoskeletal: 5/5 strength LE. Neurologic: Sensation intact in LE. Assessment and Plan 1. Attention deficit hyperactivity disorder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 walking for exercise; looking for an affordable gym. - Diet consists of small, frequent, high-protein meals; drinks water with sugar-free flavoring packets. - A1c decreased from 6.3 to 5.3 when recheck in September. Hypertension: - Taking lisinopril 10 mg and HCTZ 12.5 mg daily; took both medications today. - No longer uses salt in diet. - Has a blood pressure cuff at home but unsure if it works. ADHD: - Taking Vyvanse 70 mg daily; medication is effective. - Previously on Adderall XR, which became less effective over time. Depression: - Taking Zoloft; denies current suicidal ideation. - Takes trazodone PRN for sleep; avoids use on weekends due to grogginess during 12-hour shifts. - Works second shift from 15:00 to 23:00. Allergies: - Taking Flonase and Claritin for allergies. - Has a history of atypical dermatitis; experiencing a current outbreak. plans to schedule with dermatology. Current Outpatient Medications on File Prior to Visit Medication Sig sertraline (ZOLOFT) 100 mg tablet Take 1 tablet by mouth once daily. hydroCHLOROthiazide 12.5 mg capsule Take 1 capsule by mouth once daily. silver 200 mcg/gram gel Apply to affected area once daily. traZODone (DESYREL) 50 mg tablet Take 1 tablet by mouth daily at bedtime. semaglutide, weight loss, (WEGOVY) 0.5 mg/0.5 mL pen injector Inject 0.5 mL subcutaneously one time a week. fluticasone (FLONASE) 50 mcg/actuation nasal spray Use 2 Sprays in each nostril once daily. lisinopril (ZESTRIL) 10 mg tablet Take 1 tablet by mouth once daily. gel base no.41, bulk, (HYDROGEL) gel Apply to left great toe ulceration daily cyclobenzaprine (FLEXERIL) 10 mg tablet Take 1 tablet by mouth three times a day as needed for muscle spasm. olopatadine (PATANOL) 0.1 % ophthalmic solution USE 1-2 DROPS IN BOTH EYES TWICE DAILY ondansetron orally disintegrating (ZOFRAN ODT) 4 mg disintegrating tablet Take 1 tablet by mouth every 6 hours as needed for nausea/vomiting. albuterol HFA (PROAIR HFA) 90 mcg/actuation inhaler Inhale 2 Puffs as instructed every 6 hours as needed. Clobetasol Propionate (TEMOVATE) 0.05 % external solution MIX 1 BOTTLE INTO A 1LB TUB OF CERAVE AND APPLY 1X DAILY TO ANY AREAS OF RASH YOU CAN SEE OR FEEL. No current facility-administered medications on file prior to visit. PAST MEDICAL HISTORY Diagnosis Date ADD (attention deficit disorder) Essential hypertension Febrile convulsions (simple), unspecified PMH - PAST MEDICAL HISTORY OF Color Vision - Normal Routine or ritual circumcision Allergies: Elidel [Macrolide I* Itching Comment:Burning and severe itching Pollen Cough Adhesive Tape-Silic* Rash Constitutional: (+) fatigue, (+) weight loss Gastrointestinal: (+) decreased appetite with medication. Skin: (+) dermatitis flare Psychiatric: (-) suicidal ideation BP 143/83 Pulse 85 Resp 16 Wt (!) 164.5 kg (362 lb 9.6 oz) SpO2 94% BMI 46.56 kg/m? GENERAL: NAD, alert and oriented. NECK: Supple, no lymphadenopathy, normal thyroid, no carotid bruits. LUNGS: Clear to auscultation bilaterally, no wheezes/rhonchi/rales. HEART: Regular rate and rhythm, no murmurs. No ectopy. Labs: (September) - A1c: 5.3 (decreased from 6.3) - CMP: Normal - Lipid panel: Normal 1. Screening for depression (Z13.31) 2. Encounter for screening examination for other mental health and behavioral disorders (Z13.39) 3. Depression, major, single episode, moderate (HCC) (F32.1) - Depression is well-managed on Zoloft; no current suicidal ideations. - Continue Zoloft as prescribed. - Refill for Vyvanse scheduled for 12/27. - Follow-up in 3 months. 4. Attention deficit hyperactivity disorder (ADHD), predominantly hyperactive type (F90.1) - Symptoms well-controlled on Vyvanse 70 mg. - Refill for Vyvanse scheduled for 12/27. - Monitor for any changes in symptoms with ongoing weight loss. 5. Chronic bilateral low back pain with bilateral sciatica (M54.42) - Continue Mobic as prescribed; refill due in December. 6. Essential hypertension (I10) - Blood pressure readings have been elevated; current reading 150/90 mmHg. - Continue current medications: hydrochlorothiazide 12.5 mg and lisinopril 10 mg. - Advised patient to monitor blood pressure at home; if consistently above 140/90 mmHg, contact office for sooner follow-up. - Scheduled follow-up in 4 weeks for blood pres (more content not included)... [facility]05-20-2025 History of Present illness Narrative* Imani Nieves PA-C - 12/19/2024 9:07 AM EDT Recording using Tiem[employer] software for draft documentation of the visit was discussed with the patient/authorized counter sales representative; all questions welcomed and answered. Patient/authorized counter sales representative agreed to proceed 12/19/2024 Obesity: - On Wegovy since May 2024; tolerating well. - Weight decreased from 414 lbs in March to 362 lbs today. - Reports increased energy levels. - Engages in walking for exercise; looking for an affordable gym. - Diet consists of small, frequent, high-protein meals; drinks water with sugar- free flavoring packets. - A1c decreased from 6.3 to 5.3 when recheck in September. Hypertension: - Taking lisinopril 10 mg and HCTZ 12.5 mg daily; took both medications today. - No longer uses salt in diet. - Has a blood pressure cuff at home but unsure if it works. ADHD: - Taking Vyvanse 70 mg daily; medication is effective. - Previously on Adderall XR, which became less effective over time. Depression: - Taking Zoloft; denies current suicidal ideation. - Takes trazodone PRN for sleep; avoids use on weekends due to grogginess during 12-hour shifts. - Works second shift from 15:00 to 23:00. Allergies: - Taking Flonase and Claritin for allergies. - Has a history of atypical dermatitis; experiencing a current outbreak. plans to schedule with dermatology. Current Outpatient Medications on File Prior to Visit Medication Sig sertraline (ZOLOFT) 100 mg tablet Take 1 tablet by mouth once daily. hydroCHLOROthiazide 12.5 mg capsule Take 1 capsule by mouth once daily. silver 200 mcg/gram gel Apply to affected area once daily. traZODone (DESYREL) 50 mg tablet Take 1 tablet by mouth daily at bedtime. semaglutide, weight loss, (WEGOVY) 0.5 mg/0.5 mL pen injector Inject 0.5 mL subcutaneously one timea week. fluticasone (FLONASE) 50 mcg/actuation nasal spray Use 2 Sprays in each nostril once daily. lisinopril (ZESTRIL) 10 mg tablet Take 1 tablet by mouth once daily. gel base no.41, bulk, (HYDROGEL) gel Apply to left great toe ulceration daily cyclobenzaprine (FLEXERIL) 10 mg tablet Take 1 tablet by mouth three times a day as needed for muscle spasm. olopatadine (PATANOL) 0.1 % ophthalmic solution USE 1-2 DROPS IN BOTH EYES TWICE DAILY ondansetron orally disintegrating (ZOFRAN ODT) 4 mg disintegrating tablet Take 1 tablet by mouth every 6 hours as needed for nausea/vomiting. albuterol HFA (PROAIR HFA) 90 mcg/actuation inhaler Inhale 2 Puffs as instructed every 6 hours as needed. Clobetasol Propionate (TEMOVATE) 0.05 % external solution MIX 1 BOTTLE INTO A 1LB TUB OF CERAVE ANDAPPLY 1X DAILY TO ANY AREAS OF RASH YOU CAN SEE OR FEEL. No current facility-administered medications on file prior to visit. PAST MEDICAL HISTORY Diagnosis Date ADD (attention deficit disorder) Essential hypertension Febrile convulsions (simple), unspecified PMH - PAST MEDICAL HISTORY OF Color Vision - Normal Routine or ritual circumcision Allergies: Elidel [Macrolide I* Itching Comment:Burning and severe itching Pollen Cough Adhesive Tape-Silic* Rash Constitutional: (+) fatigue, (+) weight loss Gastrointestinal: (+) decreased appetite with medication. Skin: (+) dermatitis flare Psychiatric: (-) suicidal ideation BP 143/83 Pulse 85 Resp 16 Wt (!) 164.5 kg (362 lb 9.6 oz) SpO2 94% BMI 46.56 kg/m GENERAL: NAD, alert and oriented. NECK: Supple, no lymphadenopathy, normal thyroid, no carotid bruits. LUNGS: Clear to auscultation bilaterally, no wheezes/rhonchi/rales. HEART: Regular rate and rhythm, no murmurs. No ectopy. Labs: (September) - A1c: 5.3 (decreased from 6.3) - CMP: Normal - Lipid panel: Normal 1. Screening for depression (Z13.31) 2. Encounter for screening examination for other mental health and behavioral disorders (Z13.39) 3. Depression, major, single episode, moderate (HCC) (F32.1) - Depression is well-managed on Zoloft; no current suicidal ideations. - Continue Zoloft as prescribed. - Refill for Vyvanse scheduled for 12/27. - Follow-up in 3 months. 4. Attention deficit hyperactivity disorder (ADHD), predominantly hyperactive type (F90.1) - Symptoms well-controlled on Vyvanse 70 mg. - Refill for Vyvanse scheduled for 12/27. - Monitor for any changes in symptoms with ongoing weight loss. 5. Chronic bilateral low back pain with bilateral sciatica (M54.42) - Continue Mobic as prescribed; refill due in December. 6. Essential hypertension (I10) - Blood pressure readings have been elevated; current reading 150/90 mmHg. - Continue current medications: hydrochlorothiazide 12.5 mg and lisinopril 10 mg. - Advised patient to monitor blood pressure at home; if consistently above 140/90 mmHg, contact office for sooner follow-up. - Scheduled follow-up in 4 weeks for blood pressure check, preferably in the afternoon. - Discussed potential adjustment of lisinopril dosage if hypertension persists. 7. Obesity, Class III, BMI 40-49.9 (morbid obesity) (E66.813) - Significant weight loss achieved; current weight 362 lbs, down from 414 lbs in March 2024. - Continue Wegovy as prescribed; next follow-up in 3 months. - Encouraged continuation of current exercise regimen, including walking and light weights. - Advised on maintaining a high-protein, low-sugar diet with small, frequent meals. - Repeat A1c in 3 months; previous A1c improved from 6.3% to 5.3%. 8. Seasonal allergic rhinitis, unspecified trigger (J30.2) - Continue Flonase and Claritin as prescribed. - Discussed potential use of Singulair with mulcher operator. - Advised to reschedule dermatology appointment for atypical dermatitis management. The patient indicates understanding of these issues and agrees with the plan. Reviewed red flags and when to seek care sooner. Imani Nieves PA-C 12/19/2024 documented in this encounterW[facility]05-20-[facility]25 Instructions* Patient Instructions* Imani Nieves PA-C - 12/19/2024 8:40 AM EDT - Continue your current medications as prescribed: - Wegovy: maintain your ongoing dose; prescription is refilled through July 2025. - Vyvanse: refill available 12/27 (supply good until 12/29); watch for any changes in focus or side effects as you lose weight. - Lisinopril 10 mg daily and hydrochlorothiazide 12.5 mg daily: continue both; consider asking about a single combination pill to simplify your regimen. - Flonase nasal spray daily (refills good through July). - Claritin daily for allergies. - Meloxicam (Mobic) as needed for discomfort (refills good until December). - Zoloft daily for depression. - Trazodone at bedtime only when you need it; avoid on nights when you have fewer than 8 hours to sleep to prevent grogginess as you have been doing. - Lifestyle and self-care: - Keep up regular walking for exercise (e.g., campus walks with friends); aim for consistent cardioactivity--even without a gym. - Continue small, frequent meals high in protein and low in added sugars. - Drink water throughout the day; use stevia-based flavor packets if needed. - Blood pressure monitoring: - Get a working home blood pressure cuff and check your readings regularly. - If home readings consistently exceed 140/90, call the office to discuss earlier adjustment. f/u in 4 weeks. - Allergy/dermatitis care: - Continue Flonase and Claritin. - Schedule a dermatology follow-up for your skin flare and ask about trying Singulair as an alternative allergy treatment. - Laboratory testing: - Plan to repeat A1c and lipid panel in about 3 months at your next follow-up. - Follow-up appointments: - Schedule a blood pressure check in 4 weeks, preferably in the afternoon, to see if medication adjustments are needed. - Schedule a general follow-up in 3 months to review your weight progress, Wegovy therapy, and lab results. documented in this encounterW[facility]05-15-2025 Telephone encounter Note * Telephone Encounter - Marvin Sheets MD - 12/14/2024 9:15 AM EDT OK to refill as ordered Marvin Sheets MD [facility]05-15-[facility] Miscellaneous Notes* Telephone Encounter - Marvin Sheets MD - 12/14/2024 9:15 AM EDT OK to refill as ordered Marvin Sheets MD * Telephone Encounter - Brittany Perry LPN - 12/13/2024 3:38 PM EDT Prescription Refill Information The patient has been identified by name and date of : Yes Caregiver verified no other encounters exist for this prescription request: Yes Caregiver confirmed with patient/requestor that no other refills are due, in the near future, with this provider at this time: Yes The last office visit in the department: 09/18/24 Does the patient have a future office visit with this provider/department: Yes 12/18/24 [place] Requested Prescriptions Pending Prescriptions Disp Refills sertraline (ZOLOFT) 100 mg tablet 90 tablet 3 Sig: Take 1 tablet by mouth once daily. Brittany Perry LPN December 13, 2024 3:38 PM documented in this encounterWvumedicine [facility]05-14-2025 Telephone encounter Note * Telephone Encounter - Brittany Perry LPN - 12/13/2024 3:38 PM EDT Prescription Refill Information The patient has been identified by name and date of : Yes Caregiver verified no other encounters exist for this prescription request: Yes Caregiver confirmed with patient/requestor that no other refills are due, in the near future, with this provider at this time: Yes The last office visit in the department: 09/18/24 Does the patient have a future office visit with this provider/department: Yes 12/18/24 [place] Requested Prescriptions Pending Prescriptions Disp Refills sertraline (ZOLOFT) 100 mg tablet 90 tablet 3 Sig: Take 1 tablet by mouth once daily. Brittany Perry LPN December 13, 2024 3:38 PM [facility]05-01-[facility] Telephone encounter Note* Telephone Encounter - Marvin Sheets MD - 11/30/2024 2:26 PM EDT OK to refill as ordered Marvin Sheets MD [facility]-01-[facility] Miscellaneous Notes* Telephone Encounter - Marvin Sheets MD - 11/30/2024 2:26 PM EDT OK to refill as ordered Marvin Sheets MD * Telephone Encounter - Karon Briceño MA - 11/30/2024 2:08 PM EDT Prescription Refill Information The patient has been identified by name and date of : Yes Caregiver verified no other encounters exist for this prescription request: Yes Caregiver confirmed with patient/requestor that no other refills are due, in the near future, with this provider at this time: No The last office visit in the department: 09/18/24 Does the patient have a future office visit with this provider/department: Yes Requested Prescriptions Pending Prescriptions Disp Refills lisdexamfetamine (VYVANSE) 70 mg capsule 30 capsule 0 Sig: Take 1 capsule by mouth once daily for 30 days. Karon Briceño MA November 30, 2024 2:08 PM documented in this encounterWvumedicine [facility]05-01-2025 Telephone encounter Note * Telephone Encounter - Karon Briceño MA - 11/30/2024 2:08 PM EDT Prescription Refill Information The patient has been identified by name and date of : Yes Caregiver verified no other encounters exist for this prescription request: Yes Caregiver confirmed with patient/requestor that no other refills are due, in the near future, with this provider at this time: No The last office visit in the department: 09/18/24 Does the patient have a future office visit with this provider/department: Yes Requested Prescriptions Pending Prescriptions Disp Refills lisdexamfetamine (VYVANSE) 70 mg capsule 30 capsule 0 Sig: Take 1 capsule by mouth once daily for 30 days. Karon Briecño MA November 30, 2024 2:08 PM [facility]03-29-[facility] Telephone encounter Note* Telephone Encounter - Lupillo Desai LPN - 10/28/2024 11:09 AM EDT Prescription Refill Information The patient has been identified by name and date of : Yes Caregiver verified no other encounters exist for this prescription request: Yes Caregiver confirmed with patient/requestor that no other refills are due, in the near future, with this provider at this time: Yes The last office visit in the department: 09/18/24 Does the patient have a future office visit with this provider/department: Yes, 12/18/24 Requested Prescriptions Pending Prescriptions Disp Refills lisdexamfetamine (VYVANSE) 70 mg capsule 30 capsule 0 Sig: Take 1 capsule by mouth once daily for 30 days. *Pt has valid prescriptions at the pharmacy to last until 12/17/24. MC message to pt advising of thesame. Lupillo Dseai LPN October 28, 2024 11:09 AM [facility]03-29-[facility] Miscellaneous Notes* Telephone Encounter - Lupillo Desai LPN - 10/28/2024 11:09 AM EDT Prescription Refill Information The patient has been identified by name and date of : Yes Caregiver verified no other encounters exist for this prescription request: Yes Caregiver confirmed with patient/requestor that no other refills are due, in the near future, with this provider at this time: Yes The last office visit in the department: 09/18/24 Does the patient have a future office visit with this provider/department: Yes, 12/18/24 Requested Prescriptions Pending Prescriptions Disp Refills lisdexamfetamine (VYVANSE) 70 mg capsule 30 capsule 0 Sig: Take 1 capsule by mouth once daily for 30 days. *Pt has valid prescriptions at the pharmacy to last until 12/17/24. MC message to pt advising of thesame. Lupillo Desai LPN October 28, 2024 11:09 AM documented in this encounterWvumedicine [facility]03-07-2025 NoteHNO ID: [id number] Author: JACQUELINE DORAN PA Service: ? Author Type: Physician Rn Staff Type: Progress Notes Filed: 10/06/2024 14:27 Note Text: [facility] Subjective aMyur Worthington is a 38 year old male. Patient presents with: gum pain HPI 38-year-old male presents for gum pain. Patient states he started getting a sore on his gum a few days ago. He is unsure what caused it. Patient does state that he has dentures and occasionally will eat without them and, so has sustained cuts to his gums in the past. He cannot recall eating anything prior to this sore starting. He states that his red, tender to touch. He denies any lesions anywhere else in the mouth. No difficulty swallowing or breathing. No tongue sores. No swelling of the tongue. No fever. Has put benzocaine on it without much improvement. No other complaint. PAST MEDICAL HISTORY Diagnosis Date ADD (attention deficit disorder) Essential hypertension Febrile convulsions (simple), unspecified PMH - PAST MEDICAL HISTORY OF Color Vision - Normal Routine or ritual circumcision PAST SURGICAL HISTORY Procedure Laterality Date LX REPAIR RECURRENT VENTRAL HERNIA 04/2023 TONSILLECTOMY AND ADENOIDECTOMY TYMPANOSTOMY LOCAL/TOPICAL ANESTHESIA age 6 year ALLERGIES Elidel [Macrolide Immunosuppressant], Pollen, and Adhesive Tape-Silicones MEDICATIONS amoxicillin-clavulanate potassium (AUGMENTIN) 875-125 mg per tablet Take 1 tablet by mouth two times a day for 7 days. hydroCHLOROthiazide 12.5 mg capsule Take 1 capsule by mouth once daily. lisdexamfetamine (VYVANSE) 70 mg capsule Take 1 capsule by mouth once daily for 30 days. [START ON 10/18/2024] lisdexamfetamine (VYVANSE) 70 mg capsule Take 1 capsule by mouth once daily for 30 days. Patient should start on October 18, 2024. [START ON 11/17/2024] lisdexamfetamine (VYVANSE) 70 mg capsule Take 1 capsule by mouth once daily for 30 days. Patient should start on November 17, 2024. silver 200 mcg/gram gel Apply to affected area once daily. lisdexamfetamine (VYVANSE) 70 mg capsule Take 1 capsule by mouth once daily for 30 days. traZODone (DESYREL) 50 mg tablet Take 1 tablet by mouth daily at bedtime. semaglutide, weight loss, (WEGOVY) 0.5 mg/0.5 mL pen injector Inject 0.5 mL subcutaneously one time a week. lisdexamfetamine (VYVANSE) 70 mg capsule Take 1 capsule by mouth once daily for 30 days. meloxicam (MOBIC) 15 mg tablet Take 1 tablet by mouth once daily. Take with food. fluticasone (FLONASE) 50 mcg/actuation nasal spray Use 2 Sprays in each nostril once daily. lisinopril (ZESTRIL) 10 mg tablet Take 1 tablet by mouth once daily. lisdexamfetamine (VYVANSE) 70 mg capsule Take 1 capsule by mouth once daily for 30 days. lisdexamfetamine (VYVANSE) 70 mg capsule Take 1 capsule by mouth once daily for 30 days. gel base no.41, bulk, (HYDROGEL) gel Apply to left great toe ulceration daily cyclobenzaprine (FLEXERIL) 10 mg tablet Take 1 tablet by mouth three times a day as needed for muscle spasm. olopatadine (PATANOL) 0.1 % ophthalmic solution USE 1-2 DROPS IN BOTH EYES TWICE DAILY sertraline (ZOLOFT) 100 mg tablet Take 1 tablet by mouth once daily. ondansetron orally disintegrating (ZOFRAN ODT) 4 mg disintegrating tablet Take 1 tablet by mouth every 6 hours as needed for nausea/vomiting. albuterol HFA (PROAIR HFA) 90 mcg/actuation inhaler Inhale 2 Puffs as instructed every 6 hours as needed. Clobetasol Propionate (TEMOVATE) 0.05 % external solution MIX 1 BOTTLE INTO A 1LB TUB OF CERAVE AND APPLY 1X DAILY TO ANY AREAS OF RASH YOU CAN SEE OR FEEL. FAMILY HISTORY Problem Relation Age of Onset other (heart failure [Other]) Other [facility] age 51 Social History Tobacco Use Smoking status: Former Current packs/day: 1.00 Types: Cigarettes Smokeless tobacco: Former Types: Chew Vaping Use Vaping status: Former Substance Use Topics Alcohol use: No Drug use: Never Review of Systems Constitutional: Negative for chills and fever. HENT: Positive for mouth sores. Negative for congestion and sore throat. Respiratory: Negative for cough and shortness of breath. Gastrointestinal: Negative for diarrhea and vomiting. Objective BP 160/92 Pulse 94 Temp 37.1 ?C (98.7 ?F) Resp 16 Wt (!) 169 kg (372 lb 9.2 oz) SpO2 95% BMI 47.84 kg/m? Physical Exam Vitals and nursing note reviewed. Constitutional: General: He is not in acute distress. Appearance: Normal appearance. He is not toxic-appearing. HENT: Mouth/Throat: Mouth: Mucous membranes are moist. Dentition: Has dentures. Gum lesions present. Comments: Patient has small superficial abrasion to left upper gumline. Surrounding erythema. No abscess or fluctuance. He does wear dentures. No tongue or floor mouth swelling Cardiovascular: Rate and Rhythm: Normal rate and regular rhythm. Pulmonary: Effort: Pulmonary effort is normal. Breath sounds: Normal breath (more content not included)...[facility]03-07-2025 History of Present illness Narrative* Jacqueline Doran PA - 10/06/2024 2:25 PM EST [facility] [facility] Wor[facility] is a 38 year old male. Patient presents with: gum pain HPI 38-year-old male presents for gum pain. Patient states he started getting a sore on his gum a few days ago. He is unsure what caused it. Patient does state that he has dentures and occasionally will eat without them and, so has sustained cuts to his gums in the past. He cannot recall eating anything prior to this sore starting. He states that his red, tender to touch. He denies any lesions anywhere else in the mouth. No difficulty swallowing or breathing. No tongue sores. No swelling of thetongue. No fever. Has put benzocaine on it without much improvement. No other complaint. PAST MEDICAL HISTORY Diagnosis Date ADD (attention deficit disorder) Essential hypertension Febrile convulsions (simple), unspecified PMH - PAST MEDICAL HISTORY OF Color Vision - Normal Routine or ritual circumcision PAST SURGICAL HISTORY Procedure Laterality Date LX REPAIR RECURRENT VENTRAL HERNIA 04/2023 TONSILLECTOMY & ADENOIDECTOMY <AGE 14 TYMPANOSTOMY LOCAL/TOPICAL ANESTHESIA age 6 year ALLERGIES Elidel [Macrolide Immunosuppressant], Pollen, and Adhesive Tape-Silicones MEDICATIONS amoxicillin-clavulanate potassium (AUGMENTIN) 875-125 mg per tablet Take 1 tablet by mouth two times a day for 7 days. hydroCHLOROthiazide 12.5 mg capsule Take 1 capsule by mouth once daily. lisdexamfetamine (VYVANSE) 70 mg capsule Take 1 capsule by mouth once daily for 30 days. [START ON 10/18/2024] lisdexamfetamine (VYVANSE) 70 mg capsule Take 1 capsule by mouth once daily for 30 days. Patient should start on October 18, 2024. [START ON 11/17/2024] lisdexamfetamine (VYVANSE) 70 mg capsule Take 1 capsule by mouth once daily for 30 days. Patient should start on November 17, 2024. silver 200 mcg/gram gel Apply to affected area once daily. lisdexamfetamine (VYVANSE) 70 mg capsule Take 1 capsule by mouth once daily for 30 days. traZODone (DESYREL) 50 mg tablet Take 1 tablet by mouth daily at bedtime. semaglutide, weight loss, (WEGOVY) 0.5 mg/0.5 mL pen injector Inject 0.5 mL subcutaneously one timea week. lisdexamfetamine (VYVANSE) 70 mg capsule Take 1 capsule by mouth once daily for 30 days. meloxicam (MOBIC) 15 mg tablet Take 1 tablet by mouth once daily. Take with food. fluticasone (FLONASE) 50 mcg/actuation nasal spray Use 2 Sprays in each nostril once daily. lisinopril (ZESTRIL) 10 mg tablet Take 1 tablet by mouth once daily. lisdexamfetamine (VYVANSE) 70 mg capsule Take 1 capsule by mouth once daily for 30 days. lisdexamfetamine (VYVANSE) 70 mg capsule Take 1 capsule by mouth once daily for 30 days. gel base no.41, bulk, (HYDROGEL) gel Apply to left great toe ulceration daily cyclobenzaprine (FLEXERIL) 10 mg tablet Take 1 tablet by mouth three times a day as needed for muscle spasm. olopatadine (PATANOL) 0.1 % ophthalmic solution USE 1-2 DROPS IN BOTH EYES TWICE DAILY sertraline (ZOLOFT) 100 mg tablet Take 1 tablet by mouth once daily. ondansetron orally disintegrating (ZOFRAN ODT) 4 mg disintegrating tablet Take 1 tablet by mouth every 6 hours as needed for nausea/vomiting. albuterol HFA (PROAIR HFA) 90 mcg/actuation inhaler Inhale 2 Puffs as instructed every 6 hours as needed. Clobetasol Propionate (TEMOVATE) 0.05 % external solution MIX 1 BOTTLE INTO A 1LB TUB OF CERAVE ANDAPPLY 1X DAILY TO ANY AREAS OF RASH YOU CAN SEE OR FEEL. FAMILY HISTORY Problem Relation Age of Onset other (heart failure [Other]) Other maggf age 51 Social History Tobacco Use Smoking status: Former Current packs/day: 1.00 Types: Cigarettes Smokeless tobacco: Former Types: Chew Vaping Use Vaping status: Former Substance Use Topics Alcohol use: No Drug use: Never Review of Systems Constitutional: Negative for chills and fever. HENT: Positive for mouth sores. Negative for congestion and sore throat. Respiratory: Negative for cough and shortness of breath. Gastrointestinal: Negative for diarrhea and vomiting. Objective BP 160/92 Pulse 94 Temp 37.1 C (98.7 F) Resp 16 Wt (!) 169 kg (372 lb 9.2 oz) SpO2 95% BMI 47.84 kg/m Physical Exam Vitals and nursing note reviewed. Constitutional: General: He is not in acute distress. Appearance: Normal appearance. He is not toxic-appearing. HENT: Mouth/Throat: Mouth: Mucous membranes are moist. Dentition: Has dentures. Gum lesions present. Comments: Patient has small superficial abrasion to left upper gumline. Surrounding erythema. No abscess or fluctuance. He does wear dentures. No tongue or floor mouth swelling Cardiovascular: Rate and Rhythm: Normal rate and regular rhythm. Pulmonary: Effort: Pulmonary effort is normal. Breath sounds: Normal breath sounds. Skin: General: Skin is warm and dry. Neurological: Mental Status: He is alert. ASSESSMENT/PLAN: 1. Superficial injury of gum with infection, initial encounter - ICD9: 910.9, ICD10: S00.502A, K05.10 -Rx Augmentin to cover for infection -Follow-up with dentist if no improvement Diagnosis and treatment plan were discussed and questions were answered to the patient's satisfaction. Pt acknowledged understanding of concepts and follow up plan. Specific signs and symptoms that would indicate the need for higher level of care were discussed in detail warranting prompt ER evaluation. MITRA Farah Differential Diagnoses - Gum infection is more likely for the following reason(s): suggested by H&P Disposition The patient was discharged. Procedures [facility] Telephone encounter Note * Telephone Encounter - Zaida Trujillo MA - 09/22/2024 11:04 AM EST Engagement Labshart message sent to pt notifying him of Providers message below. If any questions to contact the office. Zaida Trujillo MA [facility]02-21-[facility]25 Miscellaneous Notes* Telephone Encounter - Zaida Trujillo MA - 09/22/2024 11:04 AM EST Engagement Labshart message sent to pt notifying him of Providers message below. If any questions to contact the office. Zaida Trujillo MA * Telephone Encounter - Tiffanie Gillis APRN.CNP - 09/22/2024 7:42 AM EST Can you please call the patient and let him know that I reviewed his lab results. HDL was low. LDL just mildly elevated but much improved. A1c went from 6.3 to 5.3. I would like himto continue to eat a well-balanced diet and get some form of exercise. He can keep follow-up appointment in November. Please let me know if he has any questions. Thank you. Tiffanie Gillis APRN.WALE documented in this encounterW[facility] Telephone encounter Note * Telephone Encounter - Tiffanie Gillis APRN.CNP - 09/22/2024 7:42 AM EST Can you please call the patient and let him know that I reviewed his lab results. HDL was low. LDL just mildly elevated but much improved. A1c went from 6.3 to 5.3. I would like himto continue to eat a well-balanced diet and get some form of exercise. He can keep follow-up appointment in November. Please let me know if he has any questions. Thank you. Tiffanie Gillis APRN.WALE [facility] Work Phone: 1(450) 926-268502-19-2025 Telephone encounter Note* Telephone Encounter - Clemente Negro APRN.CNP - 09/20/2024 6:58 AM EST The following approved medication requests have been transmitted electronically. Requested Prescriptions Pending Prescriptions Disp Refills hydroCHLOROthiazide 12.5 mg capsule 90 capsule 3 Sig: Take 1 capsule by mouth once daily. Clemente Negro APRN.CNP [facility]02-19[facility] Miscellaneous Notes* Telephone Encounter - Clemente Negro APRN.CNP - 09/20/2024 6:58 AM EST The following approved medication requests have been transmitted electronically. Requested Prescriptions Pending Prescriptions Disp Refills hydroCHLOROthiazide 12.5 mg capsule 90 capsule 3 Sig: Take 1 capsule by mouth once daily. Clemente Negro APRN.CNP * Telephone Encounter - Lupillo Desai LPN - 09/19/2024 3:00 PM EST Prescription Refill Information The patient has been identified by name and date of : Yes Caregiver verified no other encounters exist for this prescription request: Yes Caregiver confirmed with patient/requestor that no other refills are due, in the near future, with this provider at this time: Yes The last office visit in the department: 09/18/24 Does the patient have a future office visit with this provider/department: Yes, 12/18/24 Requested Prescriptions Pending Prescriptions Disp Refills hydroCHLOROthiazide 12.5 mg capsule 90 capsule 3 Sig: Take 1 capsule by mouth once daily. Lupillo Desai LPN September 19, 2024 3:00 PM documented in this encounterW[facility] Telephone encounter Note * Telephone Encounter - Lupillo Desai LPN - 09/19/2024 3:00 PM EST Prescription Refill Information The patient has been identified by name and date of : Yes Caregiver verified no other encounters exist for this prescription request: Yes Caregiver confirmed with patient/requestor that no other refills are due, in the near future, with this provider at this time: Yes The last office visit in the department: 09/18/24 Does the patient have a future office visit with this provider/department: Yes, 12/18/24 Requested Prescriptions Pending Prescriptions Disp Refills hydroCHLOROthiazide 12.5 mg capsule 90 capsule 3 Sig: Take 1 capsule by mouth once daily. Lupillo Desai LPN September 19, 2024 3:00 PM [facility]02-17-[facility] History of Present illness Narrative* Clemente Negro 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 - 09/18/2024 8:00 AM EST Chief Complaint Patient presents with: Follow Up: 3 month follow up HPI Mayur Worthington is a 38 year old male who presents here today for Chronic Medical Conditions. ADD: Current Treatment: Vyvanse 70 mg Feels treatment is working well: Yes. Weight loss: Yes. Insomnia: No. GASTROENTEROLOGY complaints: No. Tremor: No. Mood disorder: Yes. Chest pain/Palpitations: No. Aware of risks associated with controlled substance use: Yes. Hx of misuse/abuse/diversion of meds: No. HTN: Patient is compliant with meds Yes Forgot to take today Monitors bp at home: Yes. Denies side effects: Yes. Chest pain: No. Dyspnea: No. Edema: No. Palpitations: No. Syncope: No. Headache: No. Dizziness: No. Depression: Taking zolft for moods, doing good. No SI. Sleep: Taking trazodone 50 mg at night. Past medical history, appointments, medications, allergies reviewed. EXAM: BP 140/86 Pulse 84 Resp 16 Wt (!) 171 kg (377 lb) SpO2 95% BMI 48.40 kg/m General Appearance: Well appearing, alert, in no acute distress, well-hydrated, well nourished.. Lungs: Lungs clear to auscultation. No wheezing, rhonchi, rales.. Heart: RRR without murmur, gallop, or rubs. No ectopy. ASSESSMENT/PLAN: 1. Attention deficit hyperactivity disorder (ADHD), predominantly hyperactive type - ICD9: 314.01, ICD10: F90.1 (primary diagnosis) -Stable, continue Vyvanse as prescribed - LISDEXAMFETAMINE 70 MG CAPSULE - LISDEXAMFETAMINE 70 MG CAPSULE - LISDEXAMFETAMINE 70 MG CAPSULE 2. Difficulty sleeping - ICD9: 780.50, ICD10: G47.9 -Stable, continue trazodone 3. Prediabetes - ICD9: 790.29, ICD10: R73.03 -Reevaluate if hemoglobin A1c labs ordered 4. Current mild episode of major depressive disorder, unspecified whether recurrent (HCC) - ICD9: 296.21, ICD10: F32.0 -Stable, continue Zoloft 5. Class 3 severe obesity with body mass index (BMI) of 45.0 to 49.9 in adult, unspecified obesity type, unspecified whether serious comorbidity present (HCC) - ICD9: 278.01, V85.42, ICD10: E66.813, E66.01, Z68.42 Weight decreasing - Behavioral intervention and - Pharmacological intervention 6. Hypertension, essential - ICD9: 401.9, ICD10: I10 - Controlled, encouraged patient to take blood pressure medication prior to appointments. - Continue current medications - Recommend home blood pressure monitoring, to bring results to next visit - Encouraged sodium restriction, DASH or Mediterranean diet - Recommend regular aerobic exercise Clemente Negro APRN.CNP RTO in 3 months, sooner if needed. Get labs this morning This note was partly generated using [employer] voice recognition dictation and may contain some misspelled or inaccurate words missed on review. documented in this encounterW[facility]02-17-2025 NoteHNO ID: [id number] Author: CLEMENTE NEGRO 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 Service: ? Author Type: Nurse Practitioner Type: Progress Notes Filed: 09/18/2024 08:19 Note Text: Chief Complaint Patient presents with: Follow Up: 3 month follow up HPI Mayur Worthington is a 38 year old male who presents here today for Chronic Medical Conditions. ADD: Current Treatment: Vyvanse 70 mg Feels treatment is working well: Yes. Weight loss: Yes. Insomnia: No. GASTROENTEROLOGY complaints: No. Tremor: No. Mood disorder: Yes. Chest pain/Palpitations: No. Aware of risks associated with controlled substance use: Yes. Hx of misuse/abuse/diversion of meds: No. HTN: Patient is compliant with meds Yes Forgot to take today Monitors bp at home: Yes. Denies side effects: Yes. Chest pain: No. Dyspnea: No. Edema: No. Palpitations: No. Syncope: No. Headache: No. Dizziness: No. Depression: Taking zolft for moods, doing good. No SI. Sleep: Taking trazodone 50 mg at night. Past medical history, appointments, medications, allergies reviewed. EXAM: BP 140/86 Pulse 84 Resp 16 Wt (!) 171 kg (377 lb) SpO2 95% BMI 48.40 kg/m? General Appearance: Well appearing, alert, in no acute distress, well-hydrated, well nourished.. Lungs: Lungs clear to auscultation. No wheezing, rhonchi, rales.. Heart: RRR without murmur, gallop, or rubs. No ectopy. ASSESSMENT/PLAN: 1. Attention deficit hyperactivity disorder (ADHD), predominantly hyperactive type - ICD9: 314.01, ICD10: F90.1 (primary diagnosis) -Stable, continue Vyvanse as prescribed - LISDEXAMFETAMINE 70 MG CAPSULE - LISDEXAMFETAMINE 70 MG CAPSULE - LISDEXAMFETAMINE 70 MG CAPSULE 2. Difficulty sleeping - ICD9: 780.50, ICD10: G47.9 -Stable, continue trazodone 3. Prediabetes - ICD9: 790.29, ICD10: R73.03 -Reevaluate if hemoglobin A1c labs ordered 4. Current mild episode of major depressive disorder, unspecified whether recurrent (HCC) - ICD9: 296.21, ICD10: F32.0 -Stable, continue Zoloft 5. Class 3 severe obesity with body mass index (BMI) of 45.0 to 49.9 in adult, unspecified obesity type, unspecified whether serious comorbidity present (HCC) - ICD9: 278.01, V85.42, ICD10: E66.813, E66.01, Z68.42 Weight decreasing - Behavioral intervention and - Pharmacological intervention 6. Hypertension, essential - ICD9: 401.9, ICD10: I10 - Controlled, encouraged patient to take blood pressure medication prior to appointments. - Continue current medications - Recommend home blood pressure monitoring, to bring results to next visit - Encouraged sodium restriction, DASH or Mediterranean diet - Recommend regular aerobic exercise Clemente Negro 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 RTO in 3 months, sooner if needed. Get labs this morning This note was partly generated using [employer] voice recognition dictation and may contain some misspelled or inaccurate words missed on review.[facility]01-31-2025 NoteHNO ID: [id number] Author: SHIVAM CUNNINGHAM, ? Service: ? Author Type: Physician Type: Progress Notes Filed: 09/01/2024 09:40 Note Text: FOLLOW UP PODIATRIC OFFICE VISIT Chief Complaint: This 38 year old who presents for follow up:b/l hallux ulceration. Patient presents to clinic for follow-up b/l hallux ulceration. Has received custom inserts Feels the inserts are helping Patient applies silvergel as needed PAIN EVALUATION No data found in the last 1 encounters. Hemoglobin A1C Date Value Ref Range Status 05/10/2024 6.3 (H) 4.3 - 5.6 % Final Comment: [place] [employer] guidelines indicate that patients with HgbA1c in the range 5.7-6.4% are at increased risk for development of diabetes, and intervention by lifestyle modification may be beneficial. HgbA1c greater or equal to 6.5% is considered diagnostic of diabetes. PCP: Marvin Sheets MD PAST MEDICAL HISTORY Diagnosis Date ADD (attention deficit disorder) Essential hypertension Febrile convulsions (simple), unspecified PMH - PAST MEDICAL HISTORY OF Color Vision - Normal Routine or ritual circumcision Current Outpatient Medications Medication Sig lisdexamfetamine (VYVANSE) 70 mg capsule Take 1 capsule by mouth once daily for 30 days. traZODone (DESYREL) 50 mg tablet Take 1 tablet by mouth daily at bedtime. semaglutide, weight loss, (WEGOVY) 0.5 mg/0.5 mL pen injector Inject 0.5 mL subcutaneously one time a week. meloxicam (MOBIC) 15 mg tablet Take 1 tablet by mouth once daily. Take with food. fluticasone (FLONASE) 50 mcg/actuation nasal spray Use 2 Sprays in each nostril once daily. lisinopril (ZESTRIL) 10 mg tablet Take 1 tablet by mouth once daily. gel base no.41, bulk, (HYDROGEL) gel Apply to left great toe ulceration daily cyclobenzaprine (FLEXERIL) 10 mg tablet Take 1 tablet by mouth three times a day as needed for muscle spasm. olopatadine (PATANOL) 0.1 % ophthalmic solution USE 1-2 DROPS IN BOTH EYES TWICE DAILY sertraline (ZOLOFT) 100 mg tablet Take 1 tablet by mouth once daily. hydroCHLOROthiazide 12.5 mg capsule Take 1 capsule by mouth once daily. ondansetron orally disintegrating (ZOFRAN ODT) 4 mg disintegrating tablet Take 1 tablet by mouth every 6 hours as needed for nausea/vomiting. albuterol HFA (PROAIR HFA) 90 mcg/actuation inhaler Inhale 2 Puffs as instructed every 6 hours as needed. Clobetasol Propionate (TEMOVATE) 0.05 % external solution MIX 1 BOTTLE INTO A 1LB TUB OF CERAVE AND APPLY 1X DAILY TO ANY AREAS OF RASH YOU CAN SEE OR FEEL. lisdexamfetamine (VYVANSE) 70 mg capsule Take 1 capsule by mouth once daily for 30 days. lisdexamfetamine (VYVANSE) 70 mg capsule Take 1 capsule by mouth once daily for 30 days. lisdexamfetamine (VYVANSE) 70 mg capsule Take 1 capsule by mouth once daily for 30 days. No current facility-administered medications for this visit. ALLERGIES Allergen Reactions Shanice [Macrolide I* Itching Burning and severe itching Pollen Cough Adhesive Tape-Silic* Rash PAST SURGICAL HISTORY Procedure Laterality Date LX REPAIR RECURRENT VENTRAL HERNIA 04/2023 TONSILLECTOMY AND ADENOIDECTOMY TYMPANOSTOMY LOCAL/TOPICAL ANESTHESIA age 6 year Physical Exam: OBJECTIVE: Constitutional: Pt is a well developed 38 year old male who is alert, oriented, cooperative and in no apparent distress. Eyes: Following during examination. No redness or drainage. Respiratory: RR normal and nonlabored. Even breathing. No evidence of distress. Psychology: Patient is engaged during conversation. Normal affect and mood. Does not appear depressed or anxious. NVSI unchanged from previous visit. Dermatological: Nails 1-5 b/l are normal. Webspaces clean and dry 1-4 b/l. Skin appears well hydrated and supple. good color, texture, turgor. No open lesions present. Callus present to b/l hallux ipj. No ulceration. Fissure is noted to left hallux. No signs of infection Musculoskeletal/Orthopaedic: Patient has no pain to palpation of b/l feet Flatfoot is noted b/l. ASSESSMENT: (L97.521) Ulcer of toe of left foot, limited to breakdown of skin (HCC) (primary encounter diagnosis) (L84) Callus of foot (M76.829) Posterior tibial tendon dysfunction PLAN: Ulcerations are now healed. Continue with pummice stone as needed and continue with lotion to help limit dryness of feet He will continue to benefit from the use of inserts to offload hallux ipj For his fissures, he will continue to benefit from either lotion or silver gel. Silver gel was prescribed Fissure of left hallux was debrided as coutesy Can f/u prn Shivam Cunningham [facility]01-31-2025 History of Present illness Narrative* Shivam Cunningham - 09/01/2024 9:28 AM EST FOLLOW UP PODIATRIC OFFICE VISIT Chief Complaint: This 38 year old who presents for follow up:b/l hallux ulceration. Patient presents to clinic for follow-up b/l hallux ulceration. Has received custom inserts Feels the inserts are helping Patient applies silvergel as needed PAIN EVALUATION No data found in the last 1 encounters. Hemoglobin A1C Date Value Ref Range Status 05/10/2024 6.3 (H) 4.3 - 5.6 % Final Comment: [place] [employer] guidelines indicate that patients with HgbA1c in the range 5.7-6.4% are at increased risk for development of diabetes, and intervention by lifestyle modification may be beneficial. HgbA1c greater or equal to 6.5% is considered diagnostic of diabetes. PCP: Marvin Sheets MD PAST MEDICAL HISTORY Diagnosis Date ADD (attention deficit disorder) Essential hypertension Febrile convulsions (simple), unspecified PMH - PAST MEDICAL HISTORY OF Color Vision - Normal Routine or ritual circumcision Current Outpatient Medications Medication Sig lisdexamfetamine (VYVANSE) 70 mg capsule Take 1 capsule by mouth once daily for 30 days. traZODone (DESYREL) 50 mg tablet Take 1 tablet by mouth daily at bedtime. semaglutide, weight loss, (WEGOVY) 0.5 mg/0.5 mL pen injector Inject 0.5 mL subcutaneously one timea week. meloxicam (MOBIC) 15 mg tablet Take 1 tablet by mouth once daily. Take with food. fluticasone (FLONASE) 50 mcg/actuation nasal spray Use 2 Sprays in each nostril once daily. lisinopril (ZESTRIL) 10 mg tablet Take 1 tablet by mouth once daily. gel base no.41, bulk, (HYDROGEL) gel Apply to left great toe ulceration daily cyclobenzaprine (FLEXERIL) 10 mg tablet Take 1 tablet by mouth three times a day as needed for muscle spasm. olopatadine (PATANOL) 0.1 % ophthalmic solution USE 1-2 DROPS IN BOTH EYES TWICE DAILY sertraline (ZOLOFT) 100 mg tablet Take 1 tablet by mouth once daily. hydroCHLOROthiazide 12.5 mg capsule Take 1 capsule by mouth once daily. ondansetron orally disintegrating (ZOFRAN ODT) 4 mg disintegrating tablet Take 1 tablet by mouth every 6 hours as needed for nausea/vomiting. albuterol HFA (PROAIR HFA) 90 mcg/actuation inhaler Inhale 2 Puffs as instructed every 6 hours as needed. Clobetasol Propionate (TEMOVATE) 0.05 % external solution MIX 1 BOTTLE INTO A 1LB TUB OF CERAVE ANDAPPLY 1X DAILY TO ANY AREAS OF RASH YOU CAN SEE OR FEEL. lisdexamfetamine (VYVANSE) 70 mg capsule Take 1 capsule by mouth once daily for 30 days. lisdexamfetamine (VYVANSE) 70 mg capsule Take 1 capsule by mouth once daily for 30 days. lisdexamfetamine (VYVANSE) 70 mg capsule Take 1 capsule by mouth once daily for 30 days. No current facility-administered medications for this visit. ALLERGIES Allergen Reactions Elidel [Macrolide I* Itching Burning and severe itching Pollen Cough Adhesive Tape-Silic* Rash PAST SURGICAL HISTORY Procedure Laterality Date LX REPAIR RECURRENT VENTRAL HERNIA 04/2023 TONSILLECTOMY & ADENOIDECTOMY <AGE 14 TYMPANOSTOMY LOCAL/TOPICAL ANESTHESIA age 6 year Physical Exam: OBJECTIVE: Constitutional: Pt is a well developed 38 year old male who is alert, oriented, cooperative and in no apparent distress. Eyes: Following during examination. No redness or drainage. Respiratory: RR normal and nonlabored. Even breathing. No evidence of distress. Psychology: Patient is engaged during conversation. Normal affect and mood. Does not appear depressed or anxious. NVSI unchanged from previous visit. Dermatological: Nails 1-5 b/l are normal. Webspaces clean and dry 1-4 b/l. Skin appears well hydrated and supple. good color, texture, turgor. No open lesions present. Callus present to b/l hallux ipj. No ulceration. Fissure is noted to left hallux. No signs of infection Musculoskeletal/Orthopaedic: Patient has no pain to palpation of b/l feet Flatfoot is noted b/l. ASSESSMENT: (L97.521) Ulcer of toe of left foot, limited to breakdown of skin (HCC) (primary encounter diagnosis) (L84) Callus of foot (M76.829) Posterior tibial tendon dysfunction PLAN: Ulcerations are now healed. Continue with pummice stone as needed and continue with lotion to help limit dryness of feet He will continue to benefit from the use of inserts to offload hallux ipj For his fissures, he will continue to benefit from either lotion or silver gel. Silver gel was prescribed Fissure of left hallux was debrided as coutesy Can f/u prn Shivam Cunningham DPM documented [facility] Telephone encounter Note * Telephone Encounter - Marvin Sheets MD - 08/25/2024 4:39 PM EST OK to refill as ordered Marvin Sheets MD [facility]01-24-2025 Miscellaneous Notes* Telephone Encounter - Marvin Sheets MD - 08/25/2024 4:39 PM EST OK to refill as ordered Marvin Sheets MD * Telephone Encounter - Lupillo Desai LPN - 08/25/2024 3:30 PM EST Prescription Refill Information The patient has been identified by name and date of : Yes Caregiver verified no other encounters exist for this prescription request: Yes Caregiver confirmed with patient/requestor that no other refills are due, in the near future, with this provider at this time: Yes The last office visit in the department: 07/17/24 Does the patient have a future office visit with this provider/department: Yes, 09/18/24 Requested Prescriptions Pending Prescriptions Disp Refills lisdexamfetamine (VYVANSE) 70 mg capsule 30 capsule 0 Sig: Take 1 capsule by mouth once daily for 30 days. Lupillo Desai LPN August 25, 2024 3:30 PM documented in this encounterW[facility] Telephone encounter Note * Telephone Encounter - Lupillo Desai LPN - 08/25/2024 3:30 PM EST Prescription Refill Information The patient has been identified by name and date of : Yes Caregiver verified no other encounters exist for this prescription request: Yes Caregiver confirmed with patient/requestor that no other refills are due, in the near future, with this provider at this time: Yes The last office visit in the department: 07/17/24 Does the patient have a future office visit with this provider/department: Yes, 09/18/24 Requested Prescriptions Pending Prescriptions Disp Refills lisdexamfetamine (VYVANSE) 70 mg capsule 30 capsule 0 Sig: Take 1 capsule by mouth once daily for 30 days. Lupillo Desai LPN August 25, 2024 3:30 PM [facility]01-14-2025 Telephone encounter Note* Telephone Encounter - Clemente Negro APRN.CNP - 08/15/2024 1:39 PM EST The following approved medication requests have been transmitted electronically. Requested Prescriptions Pending Prescriptions Disp Refills traZODone (DESYREL) 50 mg tablet 90 tablet 3 Sig: Take 1 tablet by mouth daily at bedtime. Clemente Negro APRN.CNP [facility]01-14-2025 Miscellaneous Notes* Telephone Encounter - Clemente Negro APRN.WALE - 08/15/2024 1:39 PM EST The following approved medication requests have been transmitted electronically. Requested Prescriptions Pending Prescriptions Disp Refills traZODone (DESYREL) 50 mg tablet 90 tablet 3 Sig: Take 1 tablet by mouth daily at bedtime. Clemente Negro APRN.CNP * Telephone Encounter - Lupillo Desai LPN - 08/15/2024 1:06 PM EST Prescription Refill Information The patient has been identified by name and date of : Yes Caregiver verified no other encounters exist for this prescription request: Yes Caregiver confirmed with patient/requestor that no other refills are due, in the near future, with this provider at this time: Yes The last office visit in the department: 07/17/24 Does the patient have a future office visit with this provider/department: Yes, 09/18/24 Requested Prescriptions Pending Prescriptions Disp Refills traZODone (DESYREL) 50 mg tablet 30 tablet 2 Sig: Take 1 tablet by mouth daily at bedtime. *Pt is requesting 90 day supply. Lupillo Desai LPN August 15, 2024 1:06 PM documented in this encounterW[facility]01-14-2025 Telephone encounter Note * Telephone Encounter - Lupillo Desai LPN - 08/15/2024 1:06 PM EST Prescription Refill Information The patient has been identified by name and date of : Yes Caregiver verified no other encounters exist for this prescription request: Yes Caregiver confirmed with patient/requestor that no other refills are due, in the near future, with this provider at this time: Yes The last office visit in the department: 07/17/24 Does the patient have a future office visit with this provider/department: Yes, 09/18/24 Requested Prescriptions Pending Prescriptions Disp Refills traZODone (DESYREL) 50 mg tablet 30 tablet 2 Sig: Take 1 tablet by mouth daily at bedtime. *Pt is requesting 90 day supply. Lupillo Desai LPN August 15, 2024 1:06 PM [facility]01-07-2025 Telephone encounter Note* Telephone Encounter - Clemente Negro APRN.CNP - 08/08/2024 10:36 AM EST Sent Clemente Negro APRN.CNP [facility]01-07-2025 Miscellaneous Notes* Telephone Encounter - Clemente Negro APRN.CNP - 08/08/2024 10:36 AM EST Sent Clemente Negro APRN.CNP * Telephone Encounter - Tamera Bar LPN - 08/08/2024 9:44 AM EST Fax from [facility] pharmacy: Clarification needed for medication, written for inject 1mg/ml, sig for wegovy 0.5 mg is to inject 0.5 ml, please clarify. semaglutide, weight loss, (WEGOVY) 0.5 mg/0.5 mL pen injector Inject 1 mL subcutaneously one time aweek. documented in this encounterWvumedicine [facility]01-07-2025 Telephone encounter Note * Telephone Encounter - Clemente Negro APRN.CNP - 08/08/2024 10:29 AM EST Resent for 0.5 mg The following approved medication requests have been transmitted electronically. Requested Prescriptions Signed Prescriptions Disp Refills semaglutide, weight loss, (WEGOVY) 0.5 mg/0.5 mL pen injector 6 mL 3 Sig: Inject 0.5 mL subcutaneously one time a week. Authorizing Provider: CLEMENTE NEGRO APRN.CNP [facility]01-07-2025 Miscellaneous Notes* Telephone Encounter - Clemente Negro APRN.CNP - 08/08/2024 10:29 AM EST Resent for 0.5 mg The following approved medication requests have been transmitted electronically. Requested Prescriptions Signed Prescriptions Disp Refills semaglutide, weight loss, (WEGOVY) 0.5 mg/0.5 mL pen injector 6 mL 3 Sig: Inject 0.5 mL subcutaneously one time a week. Authorizing Provider: CLEMENTE NEGRO APRN.CNP * Telephone Encounter - Jesusita Warner LPN - 08/08/2024 9:47 AM EST [place] [facility] pharmacy calling with question on Semaglutide dose. Rx has 1 ml and patient is saying should say 0.5 ml once weekly. Asking for a new rx if wanting the 0.5 ml once weekly. Please advise documented in this encounterWv[facility]01-07-2025 Telephone encounter Note * Telephone Encounter - Jesusita Warner LPN - 08/08/2024 9:47 AM EST [place] [facility] pharmacy calling with question on Semaglutide dose. Rx has 1 ml and patient is saying should say 0.5 ml once weekly. Asking for a new rx if wanting the 0.5 ml once weekly. Please advise [facility]01-07-2025 Telephone encounter Note* Telephone Encounter - Tamera Bar LPN - 08/08/2024 9:44 AM EST Fax from [facility] pharmacy: Clarification needed for medication, written for inject 1mg/ml, sig for wegovy 0.5 mg is to inject 0.5 ml, please clarify. semaglutide, weight loss, (WEGOVY) 0.5 mg/0.5 mL pen injector Inject 1 mL subcutaneously one time aweek. [facility]01-04-2025 NoteHNO ID: [id number] Author: SHIVAM CUNNINGHAM, ? Service: ? Author Type: Physician Type: Progress Notes Filed: 08/05/2024 22:41 Note Text: FOLLOW UP PODIATRIC OFFICE VISIT Chief Complaint: This 38 year old who presents for follow up:b/l hallux callus Patient presents to clinic for follow-up callus to b/l hallux He presents wearing pneumatic boot on left foot He was evaluated for orthotics. Has yet to receive Has been off work for the past few weeks. Is scheduled to return to work tomorrow. PAIN EVALUATION No data found in the last 1 encounters. Hemoglobin A1C Date Value Ref Range Status 05/10/2024 6.3 (H) 4.3 - 5.6 % Final Comment: [place] [employer] guidelines indicate that patients with HgbA1c in the range 5.7-6.4% are at increased risk for development of diabetes, and intervention by lifestyle modification may be beneficial. HgbA1c greater or equal to 6.5% is considered diagnostic of diabetes. PCP: Marvin Sheets MD PAST MEDICAL HISTORY Diagnosis Date ADD (attention deficit disorder) Essential hypertension Febrile convulsions (simple), unspecified PMH - PAST MEDICAL HISTORY OF Color Vision - Normal Routine or ritual circumcision Current Outpatient Medications Medication Sig lisdexamfetamine (VYVANSE) 70 mg capsule Take 1 capsule by mouth once daily for 30 days. semaglutide, weight loss, (WEGOVY) 0.5 mg/0.5 mL pen injector Inject 1 mL subcutaneously one time a week. meloxicam (MOBIC) 15 mg tablet Take 1 tablet by mouth once daily. Take with food. fluticasone (FLONASE) 50 mcg/actuation nasal spray Use 2 Sprays in each nostril once daily. lisinopril (ZESTRIL) 10 mg tablet Take 1 tablet by mouth once daily. lisdexamfetamine (VYVANSE) 70 mg capsule Take 1 capsule by mouth once daily for 30 days. traZODone (DESYREL) 50 mg tablet Take 1 tablet by mouth daily at bedtime. lisdexamfetamine (VYVANSE) 70 mg capsule Take 1 capsule by mouth once daily for 30 days. lisdexamfetamine (VYVANSE) 70 mg capsule Take 1 capsule by mouth once daily for 30 days. gel base no.41, bulk, (HYDROGEL) gel Apply to left great toe ulceration daily cyclobenzaprine (FLEXERIL) 10 mg tablet Take 1 tablet by mouth three times a day as needed for muscle spasm. olopatadine (PATANOL) 0.1 % ophthalmic solution USE 1-2 DROPS IN BOTH EYES TWICE DAILY sertraline (ZOLOFT) 100 mg tablet Take 1 tablet by mouth once daily. hydroCHLOROthiazide 12.5 mg capsule Take 1 capsule by mouth once daily. ondansetron orally disintegrating (ZOFRAN ODT) 4 mg disintegrating tablet Take 1 tablet by mouth every 6 hours as needed for nausea/vomiting. albuterol HFA (PROAIR HFA) 90 mcg/actuation inhaler Inhale 2 Puffs as instructed every 6 hours as needed. Clobetasol Propionate (TEMOVATE) 0.05 % external solution MIX 1 BOTTLE INTO A 1LB TUB OF CERAVE AND APPLY 1X DAILY TO ANY AREAS OF RASH YOU CAN SEE OR FEEL. No current facility-administered medications for this visit. ALLERGIES Allergen Reactions Elidel [Macrolide I* Itching Burning and severe itching Pollen Cough Adhesive Tape-Silic* Rash PAST SURGICAL HISTORY Procedure Laterality Date LX REPAIR RECURRENT VENTRAL HERNIA 04/2023 TONSILLECTOMY AND ADENOIDECTOMY TYMPANOSTOMY LOCAL/TOPICAL ANESTHESIA age 6 year Physical Exam: OBJECTIVE: Constitutional: Pt is a well developed 38 year old male who is alert, oriented, cooperative and in no apparent distress. Eyes: Following during examination. No redness or drainage. Respiratory: RR normal and nonlabored. Even breathing. No evidence of distress. Psychology: Patient is engaged during conversation. Normal affect and mood. Does not appear depressed or anxious. NVSI unchanged from previous visit. Dermatological: Pre-ulcerative callus is noted to left hallux. Very superficial bleed to left hallux. Fissure is noted to left medial heel and left hallux No ulceration noted to right hallux. Musculoskeletal/Orthopaedic: Patient has pain to palpation of left hallux at site of fissuring Flatfoot is noted to b/l feet ASSESSMENT: (L97.521) Ulcer of toe of left foot, limited to breakdown of skin (HCC) (primary encounter diagnosis) (L84) Callus of foot PLAN: Discussed ulceration of left hallux. This ulceration is nearly healed. I want him to continue with pneumatic boot whenever he is not at work. He will continue with the boot until he receives his orthotic with offloading of hallux ipj. All nonviable tissue was debrided to left hallux today with 15 blade and tissue nippers. Very minimal bleed was present and controlled with pressure. Continue with silver gel until wound is fully healed. Once healed, can use moisturizing lotion. Callus to right hallux reduced with dremmel. Fissure reduced with dremmel. Discussed biopsy of left hallux pre-ulcerative lesion. He has declined. He would like to try inserts first Follow-up in 3 weeks Shivam Cunningham [facility]01-04-2025 History of Present illness Narrative* Shivam Cunningham - 08/05/2024 10:31 PM EST FOLLOW UP PODIATRIC OFFICE VISIT Chief Complaint: This 38 year old who presents for follow up:b/l hallux callus Patient presents to clinic for follow-up callus to b/l hallux He presents wearing pneumatic boot on left foot He was evaluated for orthotics. Has yet to receive Has been off work for the past few weeks. Is scheduled to return to work tomorrow. PAIN EVALUATION No data found in the last 1 encounters. Hemoglobin A1C Date Value Ref Range Status 05/10/2024 6.3 (H) 4.3 - 5.6 % Final Comment: [place] [employer] guidelines indicate that patients with HgbA1c in the range 5.7-6.4% are at increased risk for development of diabetes, and intervention by lifestyle modification may be beneficial. HgbA1c greater or equal to 6.5% is considered diagnostic of diabetes. PCP: Marvin Sheets MD PAST MEDICAL HISTORY Diagnosis Date ADD (attention deficit disorder) Essential hypertension Febrile convulsions (simple), unspecified PMH - PAST MEDICAL HISTORY OF Color Vision - Normal Routine or ritual circumcision Current Outpatient Medications Medication Sig lisdexamfetamine (VYVANSE) 70 mg capsule Take 1 capsule by mouth once daily for 30 days. semaglutide, weight loss, (WEGOVY) 0.5 mg/0.5 mL pen injector Inject 1 mL subcutaneously one time aweek. meloxicam (MOBIC) 15 mg tablet Take 1 tablet by mouth once daily. Take with food. fluticasone (FLONASE) 50 mcg/actuation nasal spray Use 2 Sprays in each nostril once daily. lisinopril (ZESTRIL) 10 mg tablet Take 1 tablet by mouth once daily. lisdexamfetamine (VYVANSE) 70 mg capsule Take 1 capsule by mouth once daily for 30 days. traZODone (DESYREL) 50 mg tablet Take 1 tablet by mouth daily at bedtime. lisdexamfetamine (VYVANSE) 70 mg capsule Take 1 capsule by mouth once daily for 30 days. lisdexamfetamine (VYVANSE) 70 mg capsule Take 1 capsule by mouth once daily for 30 days. gel base no.41, bulk, (HYDROGEL) gel Apply to left great toe ulceration daily cyclobenzaprine (FLEXERIL) 10 mg tablet Take 1 tablet by mouth three times a day as needed for muscle spasm. olopatadine (PATANOL) 0.1 % ophthalmic solution USE 1-2 DROPS IN BOTH EYES TWICE DAILY sertraline (ZOLOFT) 100 mg tablet Take 1 tablet by mouth once daily. hydroCHLOROthiazide 12.5 mg capsule Take 1 capsule by mouth once daily. ondansetron orally disintegrating (ZOFRAN ODT) 4 mg disintegrating tablet Take 1 tablet by mouth every 6 hours as needed for nausea/vomiting. albuterol HFA (PROAIR HFA) 90 mcg/actuation inhaler Inhale 2 Puffs as instructed every 6 hours as needed. Clobetasol Propionate (TEMOVATE) 0.05 % external solution MIX 1 BOTTLE INTO A 1LB TUB OF CERAVE ANDAPPLY 1X DAILY TO ANY AREAS OF RASH YOU CAN SEE OR FEEL. No current facility-administered medications for this visit. ALLERGIES Allergen Reactions Elidel [Macrolide I* Itching Burning and severe itching Pollen Cough Adhesive Tape-Silic* Rash PAST SURGICAL HISTORY Procedure Laterality Date LX REPAIR RECURRENT VENTRAL HERNIA 04/2023 TONSILLECTOMY & ADENOIDECTOMY <AGE 14 TYMPANOSTOMY LOCAL/TOPICAL ANESTHESIA age 6 year Physical Exam: OBJECTIVE: Constitutional: Pt is a well developed 38 year old male who is alert, oriented, cooperative and in no apparent distress. Eyes: Following during examination. No redness or drainage. Respiratory: RR normal and nonlabored. Even breathing. No evidence of distress. Psychology: Patient is engaged during conversation. Normal affect and mood. Does not appear depressed or anxious. NVSI unchanged from previous visit. Dermatological: Pre-ulcerative callus is noted to left hallux. Very superficial bleed to left hallux. Fissure is noted to left medial heel and left hallux No ulceration noted to right hallux. Musculoskeletal/Orthopaedic: Patient has pain to palpation of left hallux at site of fissuring Flatfoot is noted to b/l feet ASSESSMENT: (L97.521) Ulcer of toe of left foot, limited to breakdown of skin (HCC) (primary encounter diagnosis) (L84) Callus of foot PLAN: Discussed ulceration of left hallux. This ulceration is nearly healed. I want him to continue with pneumatic boot whenever he is not at work. He will continue with the boot until he receives his orthotic with offloading of hallux ipj. All nonviable tissue was debrided to left hallux today with 15 blade and tissue nippers. Very minimal bleed was present and controlled with pressure. Continue with silver gel until wound is fully healed. Once healed, can use moisturizing lotion. Callus to right hallux reduced with dremmel. Fissure reduced with dremmel. Discussed biopsy of left hallux pre-ulcerative lesion. He has declined. He would like to try inserts first Follow-up in 3 weeks Shivam Cunningham DPM * Jarrell Zavala MA - 08/04/2024 1:32 PM EST Antibiotic ointment and Band-Aid applied per request of Dr. Cunningham. Jarrell Zavala MA * Shila Cao LPN - 08/04/2024 12:59 PM EST AMB ROOMING INTAKE FLOWSHEET DATA Patient presents with: Left Great Toe - Follow Up, Ulcer Shila Cao LPN documented in this encounterWvumedicine [facility]01-03-2025 NoteHNO ID: [id number] Author: JARRELL ZAVALA MA Service: ? Author Type: Director Call Center Sales Type: Progress Notes Filed: 08/05/2024 22:41 Note Text: Antibiotic ointment and Band-Aid applied per request of Dr. Cunningham. Jarrell [facility]01-03-2025 Instructions* Patient Instructions * Shivam Cunningham - 08/04/2024 1:13 PM EST Your wound is nearly healed. Would continue with topical lotion/cream or silver gel Continue with boot at home. Use insert with offloading pad at work Await the arrival of inserts Follow-up in 1 month documented in this encounterWvumedicine [facility]01-03-2025 NoteHNO ID: [id number] Author: SHILA CAO LPN Service: ? Author Type: LICENSED NURSE Type: Progress Notes Filed: 08/05/2024 22:41 Note Text: AMB ROOMING INTAKE FLOWSHEET DATA Patient presents with: Left Great Toe - Follow Up, Ulcer [facility] Telephone encounter Note* Telephone Encounter - Marvin Sheets MD - 07/28/2024 3:03 PM EST OK to refill as ordered Marvin Sheets MD [facility]12-27-2024 Miscellaneous Notes* Telephone Encounter - Marvin Sheets MD - 07/28/2024 3:03 PM EST OK to refill as ordered Marvin Sheets MD * Telephone Encounter - Tamera Bar LPN - 07/28/2024 1:13 PM EST Prescription Refill Information The patient has been identified by name and date of : Yes Caregiver verified no other encounters exist for this prescription request: Yes Caregiver confirmed with patient/requestor that no other refills are due, in the near future, with this provider at this time: Yes The last office visit in the department: 07/17/2024 Does the patient have a future office visit with this provider/department: Yes Requested Prescriptions Pending Prescriptions Disp Refills lisdexamfetamine (VYVANSE) 70 mg capsule 30 capsule 0 Sig: Take 1 capsule by mouth once daily for 30 days. Tamera Bar LPN July 28, 2024 1:14 PM documented in this encounterWvumedicine [facility]12-27-2024 Telephone encounter Note * Telephone Encounter - Tamera Bar LPN - 07/28/2024 1:13 PM EST Prescription Refill Information The patient has been identified by name and date of : Yes Caregiver verified no other encounters exist for this prescription request: Yes Caregiver confirmed with patient/requestor that no other refills are due, in the near future, with this provider at this time: Yes The last office visit in the department: 07/17/2024 Does the patient have a future office visit with this provider/department: Yes Requested Prescriptions Pending Prescriptions Disp Refills lisdexamfetamine (VYVANSE) 70 mg capsule 30 capsule 0 Sig: Take 1 capsule by mouth once daily for 30 days. Tamera Bar LPN July 28, 2024 1:14 PM [facility]12-16-2024 Telephone encounter Note* Telephone Encounter - Clemente Negro APRN.CNP - 07/17/2024 11:13 AM EST We can see if trans will cover. The following approved medication requests have been transmitted electronically. Requested Prescriptions Signed Prescriptions Disp Refills semaglutide, weight loss, (WEGOVY) 0.5 mg/0.5 mL pen injector 4 mL 2 Sig: Inject 1 mL subcutaneously one time a week. Authorizing Provider: CLEMENTE NEGRO APRN.CNP [facility]12-16-2024 Miscellaneous Notes* Telephone Encounter - Clemente Negro APRN.CNP - 07/17/2024 11:13 AM EST We can see if trans will cover. The following approved medication requests have been transmitted electronically. Requested Prescriptions Signed Prescriptions Disp Refills semaglutide, weight loss, (WEGOVY) 0.5 mg/0.5 mL pen injector 4 mL 2 Sig: Inject 1 mL subcutaneously one time a week. Authorizing Provider: CLEMENTE NEGRO APRN.CNP * Telephone Encounter - Melany Skelton RN - 07/17/2024 10:49 AM EST Patient calls and states that he has called to different pharmacies and they do not have the 1 mg pen for Wegovy. Patient asking if a prescription for the 0.5 mg can be sent to pharmacy. .sjprs documented in this encounterWvumedicine [facility]12-16-2024 Telephone encounter Note * Telephone Encounter - Melany Skelton RN - 07/17/2024 10:49 AM EST Patient calls and states that he has called to different pharmacies and they do not have the 1 mg pen for Wegovy. Patient asking if a prescription for the 0.5 mg can be sent to pharmacy. .sjprs [facility]12-16-2024 History of Present illness Narrative* Clemente Negro APRN.WALE - 07/17/2024 8:20 AM EST Chief Complaint Patient presents with: Follow Up HPI Mayur Worthington is a 38 year old male who presents here today for Chronic Medical Conditions. follow up for weight management . Patient following up today for weight management. He is taking Wegovy 0.5 mg once weekly. He is tolerating the medication without side effects. He has lost about 26 pounds over the last few months. His ultimate goal is to become healthier but also decrease or eliminate some of the medication. We have extensively discussed reducing or limiting his hydrochlorothiazide, lisinopril. His blood pressure today is mildly elevated in the normal range. We will increase his Wegovy today to 1.0 weekly. Continue to focus on diet and exercise. He will see me back as scheduled in 3 months to hopefully reduce or eliminate a blood pressure medication. Past medical history, appointments, medications, allergies reviewed. EXAM: BP 138/84 Pulse 88 Resp 20 Wt (!) 176 kg (388 lb) SpO2 98% BMI 49.82 kg/m General Appearance: Well appearing, alert, in no acute distress, well-hydrated, well nourished.. Obese Lungs: Lungs clear to auscultation. No wheezing, rhonchi, rales.. Heart: RRR without murmur, gallop, or rubs. No ectopy. ASSESSMENT/PLAN: 1. Obesity, Class III, BMI 40-49.9 (morbid obesity) (HCC) - ICD9: 278.01, ICD10: E66.01 Weight decreasing - Behavioral intervention and - Pharmacological intervention - SEMAGLUTIDE (WEIGHT LOSS) 1 MG/0.5 ML SUBCUTANEOUS PEN INJECTOR Clemente Negro 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 RTO in 3 months, sooner if needed. Labs prior. This note was partly generated using [employer] voice recognition dictation and may contain some misspelled or inaccurate words missed on review. documented in this encounterWvumedicine Barnesville Hospital12-16-2024 NoteHNO ID: [id number] Author: CLEMENTE NEGRO APRN.WALE Service: ? Author Type: Nurse Practitioner Type: Progress Notes Filed: 07/17/2024 08:19 Note Text: Chief Complaint Patient presents with: Follow Up HPI Mayur Worthington is a 38 year old male who presents here today for Chronic Medical Conditions. follow up for weight management . Patient following up today for weight management. He is taking Wegovy 0.5 mg once weekly. He is tolerating the medication without side effects. He has lost about 26 pounds over the last few months. His ultimate goal is to become healthier but also decrease or eliminate some of the medication. We have extensively discussed reducing or limiting his hydrochlorothiazide, lisinopril. His blood pressure today is mildly elevated in the normal range. We will increase his Wegovy today to 1.0 weekly. Continue to focus on diet and exercise. He will see me back as scheduled in 3 months to hopefully reduce or eliminate a blood pressure medication. Past medical history, appointments, medications, allergies reviewed. EXAM: BP 138/84 Pulse 88 Resp 20 Wt (!) 176 kg (388 lb) SpO2 98% BMI 49.82 kg/m? General Appearance: Well appearing, alert, in no acute distress, well-hydrated, well nourished.. Obese Lungs: Lungs clear to auscultation. No wheezing, rhonchi, rales.. Heart: RRR without murmur, gallop, or rubs. No ectopy. ASSESSMENT/PLAN: 1. Obesity, Class III, BMI 40-49.9 (morbid obesity) ([facility]) - ICD9: 278.01, ICD10: E66.01 Weight decreasing - Behavioral intervention and - Pharmacological intervention - SEMAGLUTIDE (WEIGHT LOSS) 1 MG/0.5 ML SUBCUTANEOUS PEN INJECTOR Clemente Negro 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 RTO in 3 months, sooner if needed. Labs prior. This note was partly generated using [employer] voice recognition dictation and may contain some misspelled or inaccurate words missed on review.[facility]12-09-2024 NoteHNO ID: [id number] Author: SHIVAM CUNNINGHAM, ? Service: ? Author Type: Physician Type: Progress Notes Filed: 07/10/2024 07:55 Note Text: FOLLOW UP PODIATRIC OFFICE VISIT Chief Complaint: This 38 year old who presents for follow up:b/l hallux callus/ulceration Patient presents to clinic for follow-up b/l hallux Has ulceration of left hallux and pre-ulcerative callus of right hallux Has been using pneumatic boot to the left foot and has been off work (vacation). Feels the lesion is improving. PAIN EVALUATION No data found in the last 1 encounters. Hemoglobin A1C Date Value Ref Range Status 05/10/2024 6.3 (H) 4.3 - 5.6 % Final Comment: [place] [employer] guidelines indicate that patients with HgbA1c in the range 5.7-6.4% are at increased risk for development of diabetes, and intervention by lifestyle modification may be beneficial. HgbA1c greater or equal to 6.5% is considered diagnostic of diabetes. PCP: Marvin Sheets MD PAST MEDICAL HISTORY Diagnosis Date ADD (attention deficit disorder) Essential hypertension Febrile convulsions (simple), unspecified PMH - PAST MEDICAL HISTORY OF Color Vision - Normal Routine or ritual circumcision Current Outpatient Medications Medication Sig semaglutide, weight loss, (WEGOVY) 0.5 mg/0.5 mL pen injector Inject 0.5 mL subcutaneously one time a week. lisdexamfetamine (VYVANSE) 70 mg capsule Take 1 capsule by mouth once daily for 30 days. Patient should start on June 23, 2024. lisinopril (ZESTRIL) 10 mg tablet Take 1 tablet by mouth once daily. traZODone (DESYREL) 50 mg tablet Take 1 tablet by mouth daily at bedtime. gel base no.41, bulk, (HYDROGEL) gel Apply to left great toe ulceration daily cyclobenzaprine (FLEXERIL) 10 mg tablet Take 1 tablet by mouth three times a day as needed for muscle spasm. olopatadine (PATANOL) 0.1 % ophthalmic solution USE 1-2 DROPS IN BOTH EYES TWICE DAILY sertraline (ZOLOFT) 100 mg tablet Take 1 tablet by mouth once daily. hydroCHLOROthiazide 12.5 mg capsule Take 1 capsule by mouth once daily. ondansetron orally disintegrating (ZOFRAN ODT) 4 mg disintegrating tablet Take 1 tablet by mouth every 6 hours as needed for nausea/vomiting. albuterol HFA (PROAIR HFA) 90 mcg/actuation inhaler Inhale 2 Puffs as instructed every 6 hours as needed. Clobetasol Propionate (TEMOVATE) 0.05 % external solution MIX 1 BOTTLE INTO A 1LB TUB OF CERAVE AND APPLY 1X DAILY TO ANY AREAS OF RASH YOU CAN SEE OR FEEL. meloxicam (MOBIC) 15 mg tablet Take 1 tablet by mouth once daily. Take with food. fluticasone (FLONASE) 50 mcg/actuation nasal spray Use 2 Sprays in each nostril once daily. lisdexamfetamine (VYVANSE) 70 mg capsule Take 1 capsule by mouth once daily for 30 days. lisdexamfetamine (VYVANSE) 70 mg capsule Take 1 capsule by mouth once daily for 30 days. lisdexamfetamine (VYVANSE) 70 mg capsule Take 1 capsule by mouth once daily for 30 days. No current facility-administered medications for this visit. ALLERGIES Allergen Reactions Shanice [Macrolide I* Itching Burning and severe itching Pollen Cough Adhesive Tape-Silic* Rash PAST SURGICAL HISTORY Procedure Laterality Date LX REPAIR RECURRENT VENTRAL HERNIA 04/2023 TONSILLECTOMY AND ADENOIDECTOMY TYMPANOSTOMY LOCAL/TOPICAL ANESTHESIA age 6 year Physical Exam: OBJECTIVE: Constitutional: Pt is a well developed 38 year old male who is alert, oriented, cooperative and in no apparent distress. Eyes: Following during examination. No redness or drainage. Respiratory: RR normal and nonlabored. Even breathing. No evidence of distress. Psychology: Patient is engaged during conversation. Normal affect and mood. Does not appear depressed or anxious. NVSI unchanged from previous visit. Dermatological: Minimal callus is noted to right hallux. Pre-ulcerative callus of left hallux. Following debridement, he has 1 mm x 1 mm ulceration without infection. Dryness is noted to b/l feet Musculoskeletal: flatfoot is noted b/l. ASSESSMENT: (L97.521) Ulcer of toe of left foot, limited to breakdown of skin (HCC) (primary encounter diagnosis) (L84) Callus of foot (M76.739) Posterior tibial tendon dysfunction PLAN: Discussed ulceration of left hallux. There has been reduction in size of ulceration. Today, the lesion was sharply debrided with 15 blade and tissue nippers thru dermis. Total debridement was 1 mm x 1 mm. Minimal bleeding encountered. Will treat with silvergel and boot whenever possible. If he is unable to take time off work, consider inserts with offloading pad. Await fiting for custom orthotics. Callus of right hallux was reduced with dremmel. Patient to follow-up in 3 weeks or sooner if problems arise Shivam Cunningham [facility]12-09-2024 History of Present illness Narrative* Marisa Shivam - 07/10/2024 7:51 AM EST FOLLOW UP PODIATRIC OFFICE VISIT Chief Complaint: This 38 year old who presents for follow up:b/l hallux callus/ulceration Patient presents to clinic for follow-up b/l hallux Has ulceration of left hallux and pre-ulcerative callus of right hallux Has been using pneumatic boot to the left foot and has been off work (vacation). Feels the lesion is improving. PAIN EVALUATION No data found in the last 1 encounters. Hemoglobin A1C Date Value Ref Range Status 05/10/2024 6.3 (H) 4.3 - 5.6 % Final Comment: [place] [employer] guidelines indicate that patients with HgbA1c in the range 5.7-6.4% are at increased risk for development of diabetes, and intervention by lifestyle modification may be beneficial. HgbA1c greater or equal to 6.5% is considered diagnostic of diabetes. PCP: Marvin Sheets MD PAST MEDICAL HISTORY Diagnosis Date ADD (attention deficit disorder) Essential hypertension Febrile convulsions (simple), unspecified PMH - PAST MEDICAL HISTORY OF Color Vision - Normal Routine or ritual circumcision Current Outpatient Medications Medication Sig semaglutide, weight loss, (WEGOVY) 0.5 mg/0.5 mL pen injector Inject 0.5 mL subcutaneously one timea week. lisdexamfetamine (VYVANSE) 70 mg capsule Take 1 capsule by mouth once daily for 30 days. Patient should start on June 23, 2024. lisinopril (ZESTRIL) 10 mg tablet Take 1 tablet by mouth once daily. traZODone (DESYREL) 50 mg tablet Take 1 tablet by mouth daily at bedtime. gel base no.41, bulk, (HYDROGEL) gel Apply to left great toe ulceration daily cyclobenzaprine (FLEXERIL) 10 mg tablet Take 1 tablet by mouth three times a day as needed for muscle spasm. olopatadine (PATANOL) 0.1 % ophthalmic solution USE 1-2 DROPS IN BOTH EYES TWICE DAILY sertraline (ZOLOFT) 100 mg tablet Take 1 tablet by mouth once daily. hydroCHLOROthiazide 12.5 mg capsule Take 1 capsule by mouth once daily. ondansetron orally disintegrating (ZOFRAN ODT) 4 mg disintegrating tablet Take 1 tablet by mouth every 6 hours as needed for nausea/vomiting. albuterol HFA (PROAIR HFA) 90 mcg/actuation inhaler Inhale 2 Puffs as instructed every 6 hours as needed. Clobetasol Propionate (TEMOVATE) 0.05 % external solution MIX 1 BOTTLE INTO A 1LB TUB OF CERAVE ANDAPPLY 1X DAILY TO ANY AREAS OF RASH YOU CAN SEE OR FEEL. meloxicam (MOBIC) 15 mg tablet Take 1 tablet by mouth once daily. Take with food. fluticasone (FLONASE) 50 mcg/actuation nasal spray Use 2 Sprays in each nostril once daily. lisdexamfetamine (VYVANSE) 70 mg capsule Take 1 capsule by mouth once daily for 30 days. lisdexamfetamine (VYVANSE) 70 mg capsule Take 1 capsule by mouth once daily for 30 days. lisdexamfetamine (VYVANSE) 70 mg capsule Take 1 capsule by mouth once daily for 30 days. No current facility-administered medications for this visit. ALLERGIES Allergen Reactions Elidel [Macrolide I* Itching Burning and severe itching Pollen Cough Adhesive Tape-Silic* Rash PAST SURGICAL HISTORY Procedure Laterality Date LX REPAIR RECURRENT VENTRAL HERNIA 04/2023 TONSILLECTOMY & ADENOIDECTOMY <AGE 14 TYMPANOSTOMY LOCAL/TOPICAL ANESTHESIA age 6 year Physical Exam: OBJECTIVE: Constitutional: Pt is a well developed 38 year old male who is alert, oriented, cooperative and in no apparent distress. Eyes: Following during examination. No redness or drainage. Respiratory: RR normal and nonlabored. Even breathing. No evidence of distress. Psychology: Patient is engaged during conversation. Normal affect and mood. Does not appear depressed or anxious. NVSI unchanged from previous visit. Dermatological: Minimal callus is noted to right hallux. Pre-ulcerative callus of left hallux. Following debridement, he has 1 mm x 1 mm ulceration without infection. Dryness is noted to b/l feet Musculoskeletal: flatfoot is noted b/l. ASSESSMENT: (L97.521) Ulcer of toe of left foot, limited to breakdown of skin (HCC) (primary encounter diagnosis) (L84) Callus of foot (M76.829) Posterior tibial tendon dysfunction PLAN: Discussed ulceration of left hallux. There has been reduction in size of ulceration. Today, the lesion was sharply debrided with 15 blade and tissue nippers thru dermis. Total debridement was 1 mm x 1 mm. Minimal bleeding encountered. Will treat with silvergel and boot whenever possible. If he is un able to take time off work, consider inserts with offloading pad. Await fiting for custom orthotics. Callus of right hallux was reduced with dremmel. Patient to follow-up in 3 weeks or sooner if problems arise Shivam Cunningham DPM [facility] Telephone encounter Note * Telephone Encounter - Clemente Negro 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 - 07/07/2024 1:27 PM EST The following approved medication requests have been transmitted electronically. Requested Prescriptions Pending Prescriptions Disp Refills meloxicam (MOBIC) 15 mg tablet 30 tablet 5 Sig: Take 1 tablet by mouth once daily. Take with food. Clemente Negro APRN.CNP [facility]12-06-2024 Telephone encounter Note* Telephone Encounter - Clemente Negro APRN.CNP - 07/07/2024 1:27 PM EST The following approved medication requests have been transmitted electronically. Requested Prescriptions Pending Prescriptions Disp Refills fluticasone (FLONASE) 50 mcg/actuation nasal spray 3 Each 3 Sig: Use 2 Sprays in each nostril once daily. Clemente Negro APRN.CNP [facility]12-06-2024 Miscellaneous Notes* Telephone Encounter - Clemente Negro APRN.CNP - 07/07/2024 1:27 PM EST The following approved medication requests have been transmitted electronically. Requested Prescriptions Pending Prescriptions Disp Refills meloxicam (MOBIC) 15 mg tablet 30 tablet 5 Sig: Take 1 tablet by mouth once daily. Take with food. Clemente Negro APRN.CNP * Telephone Encounter - Tamera Bar LPN - 07/07/2024 1:20 PM EST Prescription Refill Information The patient has been identified by name and date of : Yes Caregiver verified no other encounters exist for this prescription request: Yes Caregiver confirmed with patient/requestor that no other refills are due, in the near future, with this provider at this time: Yes The last office visit in the department: 06/12/2024 Does the patient have a future office visit with this provider/department: Yes Requested Prescriptions Pending Prescriptions Disp Refills meloxicam (MOBIC) 15 mg tablet 30 tablet 5 Sig: Take 1 tablet by mouth once daily. Take with food. Tamera Bar LPN July 07, 2024 1:20 PM documented in this encounterW[facility]12-[facility] Miscellaneous Notes* Telephone Encounter - Clemente Negro APRN.CNP - 07/07/2024 1:27 PM EST The following approved medication requests have been transmitted electronically. Requested Prescriptions Pending Prescriptions Disp Refills fluticasone (FLONASE) 50 mcg/actuation nasal spray 3 Each 3 Sig: Use 2 Sprays in each nostril once daily. Clemente Negro APRN.CNP * Telephone Encounter - Tamera Bar LPN - 07/07/2024 1:18 PM EST Prescription Refill Information The patient has been identified by name and date of : Yes Caregiver verified no other encounters exist for this prescription request: Yes Caregiver confirmed with patient/requestor that no other refills are due, in the near future, with this provider at this time: Yes The last office visit in the department: 06/12/2024 Does the patient have a future office visit with this provider/department: Yes Requested Prescriptions Pending Prescriptions Disp Refills fluticasone (FLONASE) 50 mcg/actuation nasal spray 3 Each 3 Sig: Use 2 Sprays in each nostril once daily. Tamera Bar LPN July 07, 2024 1:19 PM documented in this encounterW[facility]12-[facility] Telephone encounter Note * Telephone Encounter - Tamera Bar LPN - 07/07/2024 1:20 PM EST Prescription Refill Information The patient has been identified by name and date of : Yes Caregiver verified no other encounters exist for this prescription request: Yes Caregiver confirmed with patient/requestor that no other refills are due, in the near future, with this provider at this time: Yes The last office visit in the department: 06/12/2024 Does the patient have a future office visit with this provider/department: Yes Requested Prescriptions Pending Prescriptions Disp Refills meloxicam (MOBIC) 15 mg tablet 30 tablet 5 Sig: Take 1 tablet by mouth once daily. Take with food. Tamera Bar LPN July 07, 2024 1:20 PM [facility]12-06-2024 Telephone encounter Note* Telephone Encounter - Tamera Bar LPN - 07/07/2024 1:18 PM EST Prescription Refill Information The patient has been identified by name and date of : Yes Caregiver verified no other encounters exist for this prescription request: Yes Caregiver confirmed with patient/requestor that no other refills are due, in the near future, with this provider at this time: Yes The last office visit in the department: 06/12/2024 Does the patient have a future office visit with this provider/department: Yes Requested Prescriptions Pending Prescriptions Disp Refills fluticasone (FLONASE) 50 mcg/actuation nasal spray 3 Each 3 Sig: Use 2 Sprays in each nostril once daily. Tamera aBr LPN July 07, 2024 1:19 PM [facility]12-06-2024 Instructions* Patient Instructions* Shivam Cunningham - 07/07/2024 11:14 AM EST Continue with silvergel to left great toe Would avoid any adhesive bandages Once healed, use moisturizing lotion, ie gold garcia, eucerin, vaseline intensive care Use boot whenever possible Get fitted for inserts. Make sure to have them offload the great toe. Can use powerstep inserts at work with donut hole pads as instructed or cut out hole in insert. documented in this encounterW[facility]12-[facility] Telephone encounter Note * Telephone Encounter - Sona Durham MA - 07/06/2024 8:55 AM EST Patient returned call. He can come in tomorrow at 10:45. [facility]12-05-2024 Miscellaneous Notes* Telephone Encounter - Sona Durham MA - 07/06/2024 8:55 AM EST Patient returned call. He can come in tomorrow at 10:45. * Telephone Encounter - Shila Cao LPN - 07/06/2024 8:30 AM EST Called patient to see if patient would be able to come in at 1045 tomorrow instead of 1. Patient sitter answer. Left message with sister to call [facility]. Shila Cao LPN documented in this encounterW[facility]12-05-2024 Telephone encounter Note * Telephone Encounter - Shila Cao LPN - 07/06/2024 8:30 AM EST Called patient to see if patient would be able to come in at 1045 tomorrow instead of 1. Patient sitter answer. Left message with sister to call [facility]. Shila Cao LPN [facility] Work Phone: [phone]) 422-879311-22-2024 NoteHNO ID: [id number] Author: SHILA CAO LPN Service: ? Author Type: LICENSED NURSE Type: Progress Notes Filed: 07/02/2024 07:55 Note Text: Per Dr. Cunningham Mayur wound was dressed with antibiotic ointment, non adherent, and 2 in roll gauze. Instructed/educated in its application, wear, and care. All questions were answered, and patient was able to demonstrate competence with the necessary skills to utilize the above equipment. Per Dr. Cunningham Mayur was provided with aircast donjoy and diabetic impax, size XL, and instructed/educated in its application, wear, and care. All questions were answered, and patient was able to demonstrate competence with the necessary skills to utilize the above equipment. Billed to Shu. [facility] History of Present illness Narrative* Shila Cao LPN - 06/23/2024 9:[address] Cunningham, Mayur wound was dressed with antibiotic ointment, non adherent, and 2 in roll gauze. Instructed/educated in its application, wear, and care. All questions were answered, and patient was able to demonstrate competence with the necessary skills to utilize the above equipment. Per Dr. Cunningham, Mayur was provided with aircast donjoy and diabetic impax, size XL, and instructed/educated in its application, wear, and care. All questions were answered, and patient was able to demonstrate competence with the necessary skills to utilize the above equipment. Billed to Shu. Shila Cao LPN * Shivam Cunningham - 06/23/2024 8:12 AM EST FOLLOW UP PODIATRIC OFFICE VISIT Chief Complaint: This 38 year old who presents for follow up:b/l hallux ulceration Patient presents to clinic for follow-up b/l hallux ulceration. Patient is currently applying silvergel to the left great toe and neosporin to the right. He has a surgical shoe but is only wearing when he is not working. He now complains of pain to the top of left great toe. Feels that he has a bump. PAIN EVALUATION 06/23/2024 0802 Pain Level: 9 Pain Location: Toe Description: Burning;Sharp Duration Units: Days Frequency: Intermittent Intervention/Comfort measure: Relaxation;Reposition Comments: Started over a week ago. In last 2 days has been more painful and consistent Hemoglobin A1C Date Value Ref Range Status 05/10/2024 6.3 (H) 4.3 - 5.6 % Final Comment: [place] [employer] guidelines indicate that patients with HgbA1c in the range 5.7-6.4% are at increased risk for development of diabetes, and intervention by lifestyle modification may be beneficial. HgbA1c greater or equal to 6.5% is considered diagnostic of diabetes. PCP: Marvin Sheets MD PAST MEDICAL HISTORY Diagnosis Date ADD (attention deficit disorder) Essential hypertension Febrile convulsions (simple), unspecified PMH - PAST MEDICAL HISTORY OF Color Vision - Normal Routine or ritual circumcision Current Outpatient Medications Medication Sig semaglutide, weight loss, (WEGOVY) 0.5 mg/0.5 mL pen injector Inject 0.5 mL subcutaneously one timea week. lisdexamfetamine (VYVANSE) 70 mg capsule Take 1 capsule by mouth once daily for 30 days. Patient should start on June 23, 2024. lisinopril (ZESTRIL) 10 mg tablet Take 1 tablet by mouth once daily. lisdexamfetamine (VYVANSE) 70 mg capsule Take 1 capsule by mouth once daily for 30 days. traZODone (DESYREL) 50 mg tablet Take 1 tablet by mouth daily at bedtime. lisdexamfetamine (VYVANSE) 70 mg capsule Take 1 capsule by mouth once daily for 30 days. lisdexamfetamine (VYVANSE) 70 mg capsule Take 1 capsule by mouth once daily for 30 days. gel base no.41, bulk, (HYDROGEL) gel Apply to left great toe ulceration daily cyclobenzaprine (FLEXERIL) 10 mg tablet Take 1 tablet by mouth three times a day as needed for muscle spasm. olopatadine (PATANOL) 0.1 % ophthalmic solution USE 1-2 DROPS IN BOTH EYES TWICE DAILY sertraline (ZOLOFT) 100 mg tablet Take 1 tablet by mouth once daily. meloxicam (MOBIC) 15 mg tablet Take 1 tablet by mouth once daily. Take with food. fluticasone (FLONASE) 50 mcg/actuation nasal spray Use 2 Sprays in each nostril once daily. hydroCHLOROthiazide 12.5 mg capsule Take 1 capsule by mouth once daily. ondansetron orally disintegrating (ZOFRAN ODT) 4 mg disintegrating tablet Take 1 tablet by mouth every 6 hours as needed for nausea/vomiting. albuterol HFA (PROAIR HFA) 90 mcg/actuation inhaler Inhale 2 Puffs as instructed every 6 hours as needed. Clobetasol Propionate (TEMOVATE) 0.05 % external solution MIX 1 BOTTLE INTO A 1LB TUB OF CERAVE ANDAPPLY 1X DAILY TO ANY AREAS OF RASH YOU CAN SEE OR FEEL. No current facility-administered medications for this visit. ALLERGIES Allergen Reactions Elidel [Macrolide I* Itching Burning and severe itching Pollen Cough PAST SURGICAL HISTORY Procedure Laterality Date LX REPAIR RECURRENT VENTRAL HERNIA 04/2023 TONSILLECTOMY & ADENOIDECTOMY <AGE 14 TYMPANOSTOMY LOCAL/TOPICAL ANESTHESIA age 6 year Physical Exam: OBJECTIVE: Constitutional: Pt is a well developed 38 year old male who is alert, oriented, cooperative and in no apparent distress. Eyes: Following during examination. No redness or drainage. Respiratory: RR normal and nonlabored. Even breathing. No evidence of distress. Psychology: Patient is engaged during conversation. Normal affect and mood. Does not appear depressed or anxious. Vascular: DP and PT pulses are palpable b/l. CFT is less than 5 seconds. Skin temperature is warm to warm. Dermatological: Pre-ulcerative callus is noted to the right hallux. No open sores noted to right foot Left hallux has pre-ulcerative callus that upon debridement with 15 blade, reveals a 0.5 cm superficial,noninfected ulceration. Skin is dry to both feet. Musculoskeletal/Orthopaedic: Patient has pain to palpation of left hallux at site of ulceration. Rom of left hallux ipj is decreased Flatfoot is noted b/l. ASSESSMENT: (L97.521) Ulcer of toe of left foot, limited to breakdown of skin (M76.829) Posterior tibial tendon dysfunction PLAN: Patient seen today and we discussed the pre-ulcerative callus/ulceration of left hallux ipj. All nonviable tissue was debrided today with 15 blade and tissue nippers. Total debridement thru dermis into epidemis was 0.5 cm x 0.5 cm x 0.1 cm. Bleeding was present and controlled with pressure. I am going to have patient continue with surgical shoe or boot with offloading insert whenever possible. I did offer time off work to allow this ulceration to heal. He needs to check with administration. I have concerns with this ulceration that given the flatfoot combined with hallux ipj arthritis, he will continue to have risk for ulceration. I am going to repeat xrays today. I will place patient on ant ibiotic as precaution. If condition worsens, he is to present to the ED. I am going to order custom orthotics with offloading of b/l hallux ipj. Custom orthotics are necessary as they can be modified to address the underlying ulceration of b/l hallux ipj. Callus to right hallux debrided with dremmel. * Rosie De Luna RN - 06/23/2024 7:58 AM EST AMB ROOMING INTAKE FLOWSHEET DATA Pain Pain Level: 9 Pain Location: Toe Description: Burning, Sharp Duration Units: Days Frequency: Intermittent Intervention/Comfort measure: Relaxation, Reposition Comments: Started over a week ago. In last 2 days has been more painful and consistent Patient presents with: Left Great Toe - Established Patient, Follow Up, Ulcer Right Great Toe - Established Patient, Follow Up, Ulcer Patient presents for follow up of bilateral toe ulcer. States that the left toe has been causing him more pain and problems. Feels like a knot to toe that hurts every time he walks. [facility] 06/06/24 documented in this encounterW[facility]11-22-[facility] History of Present illness Narrative* Candie Powers RT(R) - 06/23/2024 9:10 AM EST Radiology Service Progress Note PATIENT NAME: Mayur Worthington DATE OF SERVICE: June 23, 2024 TIME: 11:52 AM PATIENT IDENTITY VERIFICATION COMPLETED USING TWO (2) IDENTIFIERS: Name and Date of confirmedby patient verbally. FALL SCREENING: Has the patient had 2 falls in the last year or 1 fall with injury or currently using an Ambulatory Assistive Device (Walker, Cane, Wheelchair, Crutches, etc.)? No PATIENT GENDER DATA: Male PATIENT RELEVANT IMPLANT DATA REVIEWED: Not Applicable PATIENT PRESENTS WITH AN IMPLANTABLE OR ATTACHED MUSIC SPECIALIST: No RADIOLOGY DEPARTMENT: General X-ray: Exam(s) Completed: Lower Extremity X- Ray(s): Foot, Left PERIPHERAL IV DATA: Not applicable SIGNED BY: RT Criselda(R) June 23, 2024 11:52 AM documented in this encounterW[facility]24 NoteHNO ID: [id number] Author: CANDIE POWERS RT(R) Service: ? Author Type: Technologist Type: Progress Notes Filed: 06/23/2024 11:52 Note Text: Radiology Service Progress Note PATIENT NAME: Mayur Worthington DATE OF SERVICE: June 23, 2024 TIME: 11:52 AM PATIENT IDENTITY VERIFICATION COMPLETED USING TWO (2) IDENTIFIERS: Name and Date of confirmed by patient verbally. FALL SCREENING: Has the patient had 2 falls in the last year or 1 fall with injury or currently using an Ambulatory Assistive Device (Walker, Cane, Wheelchair, Crutches, etc.)? No PATIENT GENDER DATA: Male PATIENT RELEVANT IMPLANT DATA REVIEWED: Not Applicable PATIENT PRESENTS WITH AN IMPLANTABLE OR ATTACHED MUSIC SPECIALIST: No RADIOLOGY DEPARTMENT: General X-ray: Exam(s) Completed: Lower Extremity X-Ray(s): Foot, Left PERIPHERAL IV DATA: Not applicable SIGNED BY: RT Criselda(R) June 23, 2024 11:52 [facility]11-22-2024 Instructions* Patient Instructions* Shivam Cunningham - 06/23/2024 8:35 AM EST Recommend using surgical shoe and offloading of left great toe wound Other option is to use a boot Apply silver gel to left great toe wound daily Wear insert with donut hole on right. Use pummice stone as needed. documented in this encounterW[facility]11-22-2024 NoteHNO ID: [id number] Author: SHIVAM CUNNINGHAM, ? Service: ? Author Type: Physician Type: Progress Notes Filed: 07/02/2024 07:55 Note Text: FOLLOW UP PODIATRIC OFFICE VISIT Chief Complaint: This 38 year old who presents for follow up:b/l hallux ulceration Patient presents to clinic for follow-up b/l hallux ulceration. Patient is currently applying silvergel to the left great toe and neosporin to the right. He has a surgical shoe but is only wearing when he is not working. He now complains of pain to the top of left great toe. Feels that he has a bump. PAIN EVALUATION 06/23/2024 0802 Pain Level: 9 Pain Location: Toe Description: Burning;Sharp Duration Units: Days Frequency: Intermittent Intervention/Comfort measure: Relaxation;Reposition Comments: Started over a week ago. In last 2 days has been more painful and consistent Hemoglobin A1C Date Value Ref Range Status 05/10/2024 6.3 (H) 4.3 - 5.6 % Final Comment: [place] [employer] guidelines indicate that patients with HgbA1c in the range 5.7-6.4% are at increased risk for development of diabetes, and intervention by lifestyle modification may be beneficial. HgbA1c greater or equal to 6.5% is considered diagnostic of diabetes. PCP: Marvin Sheets MD PAST MEDICAL HISTORY Diagnosis Date ADD (attention deficit disorder) Essential hypertension Febrile convulsions (simple), unspecified PMH - PAST MEDICAL HISTORY OF Color Vision - Normal Routine or ritual circumcision Current Outpatient Medications Medication Sig semaglutide, weight loss, (WEGOVY) 0.5 mg/0.5 mL pen injector Inject 0.5 mL subcutaneously one time a week. lisdexamfetamine (VYVANSE) 70 mg capsule Take 1 capsule by mouth once daily for 30 days. Patient should start on June 23, 2024. lisinopril (ZESTRIL) 10 mg tablet Take 1 tablet by mouth once daily. lisdexamfetamine (VYVANSE) 70 mg capsule Take 1 capsule by mouth once daily for 30 days. traZODone (DESYREL) 50 mg tablet Take 1 tablet by mouth daily at bedtime. lisdexamfetamine (VYVANSE) 70 mg capsule Take 1 capsule by mouth once daily for 30 days. lisdexamfetamine (VYVANSE) 70 mg capsule Take 1 capsule by mouth once daily for 30 days. gel base no.41, bulk, (HYDROGEL) gel Apply to left great toe ulceration daily cyclobenzaprine (FLEXERIL) 10 mg tablet Take 1 tablet by mouth three times a day as needed for muscle spasm. olopatadine (PATANOL) 0.1 % ophthalmic solution USE 1-2 DROPS IN BOTH EYES TWICE DAILY sertraline (ZOLOFT) 100 mg tablet Take 1 tablet by mouth once daily. meloxicam (MOBIC) 15 mg tablet Take 1 tablet by mouth once daily. Take with food. fluticasone (FLONASE) 50 mcg/actuation nasal spray Use 2 Sprays in each nostril once daily. hydroCHLOROthiazide 12.5 mg capsule Take 1 capsule by mouth once daily. ondansetron orally disintegrating (ZOFRAN ODT) 4 mg disintegrating tablet Take 1 tablet by mouth every 6 hours as needed for nausea/vomiting. albuterol HFA (PROAIR HFA) 90 mcg/actuation inhaler Inhale 2 Puffs as instructed every 6 hours as needed. Clobetasol Propionate (TEMOVATE) 0.05 % external solution MIX 1 BOTTLE INTO A 1LB TUB OF CERAVE AND APPLY 1X DAILY TO ANY AREAS OF RASH YOU CAN SEE OR FEEL. No current facility-administered medications for this visit. ALLERGIES Allergen Reactions Elidel [Macrolide I* Itching Burning and severe itching Pollen Cough PAST SURGICAL HISTORY Procedure Laterality Date LX REPAIR RECURRENT VENTRAL HERNIA 04/2023 TONSILLECTOMY AND ADENOIDECTOMY TYMPANOSTOMY LOCAL/TOPICAL ANESTHESIA age 6 year Physical Exam: OBJECTIVE: Constitutional: Pt is a well developed 38 year old male who is alert, oriented, cooperative and in no apparent distress. Eyes: Following during examination. No redness or drainage. Respiratory: RR normal and nonlabored. Even breathing. No evidence of distress. Psychology: Patient is engaged during conversation. Normal affect and mood. Does not appear depressed or anxious. Vascular: DP and PT pulses are palpable b/l. CFT is less than 5 seconds. Skin temperature is warm to warm. Dermatological: Pre-ulcerative callus is noted to the right hallux. No open sores noted to right foot Left hallux has pre-ulcerative callus that upon debridement with 15 blade, reveals a 0.5 cm superficial,noninfected ulceration. Skin is dry to both feet. Musculoskeletal/Orthopaedic: Patient has pain to palpation of left hallux at site of ulceration. Rom of left hallux ipj is decreased Flatfoot is noted b/l. ASSESSMENT: (L97.521) Ulcer of toe of left foot, limited to breakdown of skin (M76.829) Posterior tibial tendon dysfunction PLAN: Patient seen today and we discussed the pre-ulcerative callus/ulceration of left hallux ipj. All nonviable tissue was debrided today with 15 blade and tissue nippers. Total debridement thru dermis into epidemis was 0.5 cm x 0.5 cm x 0.1 cm. Bleeding was (more content not included)...[facility] 06-23-2024 NoteHNO ID: [id number] Author: ROSIE DE LUNA, RN Service: ? Author Type: Registered Nurse Type: Progress Notes Filed: 07/02/2024 07:55 Note Text: AMB ROOMING INTAKE FLOWSHEET DATA Pain Pain Level: 9 Pain Location: Toe Description: Burning, Sharp Duration Units: Days Frequency: Intermittent Intervention/Comfort measure: Relaxation, Reposition Comments: Started over a week ago. In last 2 days has been more painful and consistent Patient presents with: Left Great Toe - Established Patient, Follow Up, Ulcer Right Great Toe - Established Patient, Follow Up, Ulcer Patient presents for follow up of bilateral toe ulcer. States that the left toe has been causing him more pain and problems. Feels like a knot to toe that hurts every time he walks. [facility] 06/06/24[facility]11-11-[facility] History of Present illness Narrative* Clemente Negro 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 - 06/12/2024 8:40 AM EST Chief Complaint Patient presents with: Follow Up: 6 month follow up HPI Mayur Worthington is a 38 year old male who presents here today for Chronic Medical Conditions. Patient is here for routine follow-up. He is overall doing well. Sleep has been good with trazodone. Depression is well-controlled with Zoloft. Denies any suicidal ideations. Would like to continue the current medication. Blood pressure is improved, controlled with hydrochlorothiazide. Denies any chest pain. Using Vyvanse for ADHD. Denies any side effects. Believes it is symptoms are well-controlled. Needsa refill sent to his new pharmacy [facility]. Patient has a history of lower back, knee pain. These symptoms have been well- controlled with meloxicam. He also states that his back pain and knee pain have been improving as he has been losing weight. Patient has a history of morbid obesity. He has lost about 20 pounds since March. He has been on Wegovy for approximately 8 weeks. Tolerating the medication. Minimal side effects. Trying to stay active at home. Has a good support system. Would like to stay on the current dose of 0.5 mg weekly. Would like to get the flu and COVID-vaccine today. Past medical history, appointments, medications, allergies reviewed. EXAM: BP 136/80 Pulse 85 Resp 20 Wt (!) 180.1 kg (397 lb) SpO2 96% BMI 50.97 kg/m General Appearance: Well appearing, alert, in no acute distress, well-hydrated, well nourished. andMorbidly obese. Lungs: Lungs clear to auscultation. No wheezing, rhonchi, rales.. Heart: RRR without murmur, gallop, or rubs. No ectopy. ASSESSMENT/PLAN: 1. Attention deficit hyperactivity disorder (ADHD), predominantly hyperactive type - ICD9: 314.01, ICD10: F90.1 (primary diagnosis) -Stable, continue Vyvanse as prescribed. - LISDEXAMFETAMINE 70 MG CAPSULE 2. Hyperlipidemia, unspecified hyperlipidemia type - ICD9: 272.4, ICD10: E78.5 - Control undetermined, due for labs - Counseled on healthy diet and regular exercise 3. Prediabetes - ICD9: 790.29, ICD10: R73.03 -Continue with lifestyle changes, Wegovy. - SEMAGLUTIDE (WEIGHT LOSS) 0.5 MG/0.5 ML SUBCUTANEOUS PEN INJECTOR 4. Depression, unspecified depression type - ICD9: 311, ICD10: F32.A -Stable on Zoloft. Continue medication 5. Hypertension, essential - ICD9: 401.9, ICD10: I10 - Controlled - Continue current medications - Recommend home blood pressure monitoring, to bring results to next visit - Encouraged sodium restriction, DASH or Mediterranean diet - Recommend regular aerobic exercise 6. Encounter for immunization - ICD9: V03.89, ICD10: Z23 - INFLUENZA VACCINE, AGE 6MO-64YR, TRIVALENT (AFLURIA, FLULAVAL, FLUVIRIN, FLUZONE) - Telerivet COVID-19 VACCINE AGE 12+ YR (COMIRNATY) 7. BMI 50.0-59.9, adult (HCC) - ICD9: V85.43, ICD10: Z68.43 Weight decreasing - Behavioral intervention and - Pharmacological intervention -Continue Wegovy. Discussed setting a weight loss goal. Discussed 15 pounds in 3 months would be reasonable. - SEMAGLUTIDE (WEIGHT LOSS) 0.5 MG/0.5 ML SUBCUTANEOUS PEN INJECTOR 8. Elevated hemoglobin A1c - ICD9: 790.29, ICD10: R73.09 -Will check labs in August. Continue Wegovy. - SEMAGLUTIDE (WEIGHT LOSS) 0.5 MG/0.5 ML SUBCUTANEOUS PEN INJECTOR 9. Difficulty sleeping - ICD9: 780.50, ICD10: G47.9 -Improved, continue trazodone Clemente Negro APRN.WALE RTO in 3 months, sooner if needed. This note was partly generated using Techulon voice recognition dictation and may contain some misspelled or inaccurate words missed on review. documented in this encounterW[facility]11-11-2024 NoteHNO ID: [id number] Author: CLEMENTE NEGRO APRN.CNP Service: ? Author Type: Nurse Practitioner Type: Progress Notes Filed: 06/12/2024 09:14 Note Text: Chief Complaint Patient presents with: Follow Up: 6 month follow up HPI Mayur Worthington is a 38 year old male who presents here today for Chronic Medical Conditions. Patient is here for routine follow-up. He is overall doing well. Sleep has been good with trazodone. Depression is well-controlled with Zoloft. Denies any suicidal ideations. Would like to continue the current medication. Blood pressure is improved, controlled with hydrochlorothiazide. Denies any chest pain. Using Vyvanse for ADHD. Denies any side effects. Believes it is symptoms are well-controlled. Needs a refill sent to his new pharmacy [facility]. Patient has a history of lower back, knee pain. These symptoms have been well-controlled with meloxicam. He also states that his back pain and knee pain have been improving as he has been losing weight. Patient has a history of morbid obesity. He has lost about 20 pounds since March. He has been on Wegovy for approximately 8 weeks. Tolerating the medication. Minimal side effects. Trying to stay active at home. Has a good support system. Would like to stay on the current dose of 0.5 mg weekly. Would like to get the flu and COVID-vaccine today. Past medical history, appointments, medications, allergies reviewed. EXAM: BP 136/80 Pulse 85 Resp 20 Wt (!) 180.1 kg (397 lb) SpO2 96% BMI 50.97 kg/m? General Appearance: Well appearing, alert, in no acute distress, well-hydrated, well nourished. and Morbidly obese. Lungs: Lungs clear to auscultation. No wheezing, rhonchi, rales.. Heart: RRR without murmur, gallop, or rubs. No ectopy. ASSESSMENT/PLAN: 1. Attention deficit hyperactivity disorder (ADHD), predominantly hyperactive type - ICD9: 314.01, ICD10: F90.1 (primary diagnosis) -Stable, continue Vyvanse as prescribed. - LISDEXAMFETAMINE 70 MG CAPSULE 2. Hyperlipidemia, unspecified hyperlipidemia type - ICD9: 272.4, ICD10: E78.5 - Control undetermined, due for labs - Counseled on healthy diet and regular exercise 3. Prediabetes - ICD9: 790.29, ICD10: R73.03 -Continue with lifestyle changes, Wegovy. - SEMAGLUTIDE (WEIGHT LOSS) 0.5 MG/0.5 ML SUBCUTANEOUS PEN INJECTOR 4. Depression, unspecified depression type - ICD9: 311, ICD10: F32.A -Stable on Zoloft. Continue medication 5. Hypertension, essential - ICD9: 401.9, ICD10: I10 - Controlled - Continue current medications - Recommend home blood pressure monitoring, to bring results to next visit - Encouraged sodium restriction, DASH or Mediterranean diet - Recommend regular aerobic exercise 6. Encounter for immunization - ICD9: V03.89, ICD10: Z23 - INFLUENZA VACCINE, AGE 6MO-64YR, TRIVALENT (AFLURIA, FLULAVAL, FLUVIRIN, FLUZONE) - Telerivet COVID-19 VACCINE AGE 12+ YR (COMIRNATY) 7. BMI 50.0-59.9, adult (HCC) - ICD9: V85.43, ICD10: Z68.43 Weight decreasing - Behavioral intervention and - Pharmacological intervention -Continue Wegovy. Discussed setting a weight loss goal. Discussed 15 pounds in 3 months would be reasonable. - SEMAGLUTIDE (WEIGHT LOSS) 0.5 MG/0.5 ML SUBCUTANEOUS PEN INJECTOR 8. Elevated hemoglobin A1c - ICD9: 790.29, ICD10: R73.09 -Will check labs in August. Continue Wegovy. - SEMAGLUTIDE (WEIGHT LOSS) 0.5 MG/0.5 ML SUBCUTANEOUS PEN INJECTOR 9. Difficulty sleeping - ICD9: 780.50, ICD10: G47.9 -Improved, continue trazodone Clemente Negro 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 RTO in 3 months, sooner if needed. This note was partly generated using Techulon voice recognition dictation and may contain some misspelled or inaccurate words missed on review.[facility]11-07-2024 Telephone encounter Note* Telephone Encounter - Marvin Sheets MD - 06/08/2024 4:05 PM EST OK to refill as ordered Marvin Sheets MD [facility]11-07-2024 Miscellaneous Notes* Telephone Encounter - Marvin Sheets MD - 06/08/2024 4:05 PM EST OK to refill as ordered Marvin Sheets MD * Telephone Encounter - Karon Briceño MA - 06/08/2024 4:02 PM EST Prescription Refill Information The patient has been identified by name and date of : Yes Caregiver verified no other encounters exist for this prescription request: Yes Caregiver confirmed with patient/requestor that no other refills are due, in the near future, with this provider at this time: No The last office visit in the department: 05/10/24 Does the patient have a future office visit with this provider/department: Yes Requested Prescriptions Pending Prescriptions Disp Refills lisinopril (ZESTRIL) 10 mg tablet 90 tablet 3 Sig: Take 1 tablet by mouth once daily. Karon Briceño MA June 08, 2024 4:02 PM documented in this encounterWv[facility]11-07-2024 Telephone encounter Note * Telephone Encounter - Karon rBiceño MA - 06/08/2024 4:02 PM EST Prescription Refill Information The patient has been identified by name and date of : Yes Caregiver verified no other encounters exist for this prescription request: Yes Caregiver confirmed with patient/requestor that no other refills are due, in the near future, with this provider at this time: No The last office visit in the department: 05/10/24 Does the patient have a future office visit with this provider/department: Yes Requested Prescriptions Pending Prescriptions Disp Refills lisinopril (ZESTRIL) 10 mg tablet 90 tablet 3 Sig: Take 1 tablet by mouth once daily. Karon Briceño MA June 08, 2024 4:02 PM [facility]11-05-2024 History of Present illness Narrative* Candie Powers RT(R) - 06/06/2024 11:00 AM EST Radiology Service Progress Note PATIENT NAME: Mayur Worthington DATE OF SERVICE: June 06, 2024 TIME: 3:18 PM PATIENT IDENTITY VERIFICATION COMPLETED USING TWO (2) IDENTIFIERS: Name and Date of confirmedby patient verbally. FALL SCREENING: Has the patient had 2 falls in the last year or 1 fall with injury or currently using an Ambulatory Assistive Device (Walker, Cane, Wheelchair, Crutches, etc.)? No PATIENT GENDER DATA: Male PATIENT RELEVANT IMPLANT DATA REVIEWED: Not Applicable PATIENT PRESENTS WITH AN IMPLANTABLE OR ATTACHED MUSIC SPECIALIST: No RADIOLOGY DEPARTMENT: General X-ray: Exam(s) Completed: Lower Extremity X- Ray(s): Feet, Bilateral PERIPHERAL IV DATA: Not applicable SIGNED BY: RT Criselda(Shefali) June 06, 2024 3:18 PM documented in this encounterWvumedicine [facility]11-05-2024 NoteHNO ID: [id number] Author: CANDIE POWERS RT(R) Service: ? Author Type: Technologist Type: Progress Notes Filed: 06/06/2024 15:19 Note Text: Radiology Service Progress Note PATIENT NAME: Mayur Worthington DATE OF SERVICE: June 06, 2024 TIME: 3:18 PM PATIENT IDENTITY VERIFICATION COMPLETED USING TWO (2) IDENTIFIERS: Name and Date of confirmed by patient verbally. FALL SCREENING: Has the patient had 2 falls in the last year or 1 fall with injury or currently using an Ambulatory Assistive Device (Walker, Cane, Wheelchair, Crutches, etc.)? No PATIENT GENDER DATA: Male PATIENT RELEVANT IMPLANT DATA REVIEWED: Not Applicable PATIENT PRESENTS WITH AN IMPLANTABLE OR ATTACHED MUSIC SPECIALIST: No RADIOLOGY DEPARTMENT: General X-ray: Exam(s) Completed: Lower Extremity X-Ray(s): Feet, Bilateral PERIPHERAL IV DATA: Not applicable SIGNED BY: RT Criselda(R) June 06, 2024 3:18 [facility]11-05-2024 NoteHNO ID: [id number] Author: SHILA CAO LPN Service: ? Author Type: LICENSED NURSE Type: Progress Notes Filed: 06/07/2024 07:41 Note Text: Per Dr. Cunningham, Mayur wound was dressed with antibiotic ointment, non adherent and 2 in roll gauze. Patient was instructed/educated in its application, wear, and care. All questions were answered, and patient was able to verbalized competence with the necessary skills to utilize the above equipment. Per Dr. Cunningham, Mayur was provided with 2 post op shoe and diabetic impax insert, size XL , and instructed/educated in its application, wear, and care. All questions were answered, and patient was able to demonstrate competence with the necessary skills to utilize the above equipment. Shila Cao [facility]11-05-2024 History of Present illness Narrative* Shila Cao LPN - 06/06/2024 10:[address] Cunningham, Mayur wound was dressed with antibiotic ointment, non adherent and 2 in roll gauze. Patient was instructed/educated in its application, wear, and care. All questions were answered, and patient was able to verbalized competence with the necessary skills to utilize the above equipment. Per Dr. Cunningham, Mayur was provided with 2 post op shoe and diabetic impax insert, size XL , and instructed/educated in its application, wear, and care. All questions were answered, and patient was able to demonstrate competence with the necessary skills to utilize the above equipment. Shila Cao LPN * MarisaShivam - 06/06/2024 9:58 AM EST FOLLOW UP PODIATRIC OFFICE VISIT Chief Complaint: This 38 year old who presents for follow up: Patient has been doing the following since last visit: b/l hallux ulceration Patient presetns to clinic for evaluation of b/l feet Complains of painful callus of b/l hallux Was seen in April and they were resolved Recently found out he is pre-diabetic. Wound of left hallux has now since returned. He complains of pain to left great toe PAIN EVALUATION 06/06/2024 0945 Pain Level: 10 Pain Location: Toe Description: Sharp Duration Amount of Time: 1 Duration Units: Months Frequency: Intermittent Intervention/Comfort measure: Relaxation;Reposition Hemoglobin A1C Date Value Ref Range Status 05/10/2024 6.3 (H) 4.3 - 5.6 % Final Comment: [place] [employer] guidelines indicate that patients with HgbA1c in the range 5.7-6.4% are at increased risk for development of diabetes, and intervention by lifestyle modification may be beneficial. HgbA1c greater or equal to 6.5% is considered diagnostic of diabetes. PCP: Marvin Sheets MD PAST MEDICAL HISTORY Diagnosis Date ADD (attention deficit disorder) Essential hypertension Febrile convulsions (simple), unspecified PMH - PAST MEDICAL HISTORY OF Color Vision - Normal Routine or ritual circumcision Current Outpatient Medications Medication Sig lisdexamfetamine (VYVANSE) 70 mg capsule Take 1 capsule by mouth once daily for 30 days. semaglutide, weight loss, (WEGOVY) 0.5 mg/0.5 mL pen injector Inject 0.5 mL subcutaneously one timea week. traZODone (DESYREL) 50 mg tablet Take 1 tablet by mouth daily at bedtime. [START ON 06/23/2024] lisdexamfetamine (VYVANSE) 70 mg capsule Take 1 capsule by mouth once daily for 30 days. Patient should start on June 23, 2024. gel base no.41, bulk, (HYDROGEL) gel Apply to left great toe ulceration daily cyclobenzaprine (FLEXERIL) 10 mg tablet Take 1 tablet by mouth three times a day as needed for muscle spasm. keTORolac (TORADOL) 10 mg tablet Take 1 tablet by mouth every 6 hours as needed. olopatadine (PATANOL) 0.1 % ophthalmic solution USE 1-2 DROPS IN BOTH EYES TWICE DAILY sertraline (ZOLOFT) 100 mg tablet Take 1 tablet by mouth once daily. meloxicam (MOBIC) 15 mg tablet Take 1 tablet by mouth once daily. Take with food. fluticasone (FLONASE) 50 mcg/actuation nasal spray Use 2 Sprays in each nostril once daily. hydroCHLOROthiazide 12.5 mg capsule Take 1 capsule by mouth once daily. lisinopril (ZESTRIL) 10 mg tablet Take 1 tablet by mouth once daily. ondansetron orally disintegrating (ZOFRAN ODT) 4 mg disintegrating tablet Take 1 tablet by mouth every 6 hours as needed for nausea/vomiting. albuterol HFA (PROAIR HFA) 90 mcg/actuation inhaler Inhale 2 Puffs as instructed every 6 hours as needed. Clobetasol Propionate (TEMOVATE) 0.05 % external solution MIX 1 BOTTLE INTO A 1LB TUB OF CERAVE ANDAPPLY 1X DAILY TO ANY AREAS OF RASH YOU CAN SEE OR FEEL. lisdexamfetamine (VYVANSE) 70 mg capsule Take 1 capsule by mouth once daily for 30 days. lisdexamfetamine (VYVANSE) 70 mg capsule Take 1 capsule by mouth once daily for 30 days. No current facility-administered medications for this visit. ALLERGIES Allergen Reactions Elidel [Macrolide I* Itching Burning and severe itching Pollen Cough PAST SURGICAL HISTORY Procedure Laterality Date LX REPAIR RECURRENT VENTRAL HERNIA 04/2023 TONSILLECTOMY & ADENOIDECTOMY <AGE 14 TYMPANOSTOMY LOCAL/TOPICAL ANESTHESIA age 6 year Physical Exam: OBJECTIVE: Constitutional: Pt is a well developed 38 year old male who is alert, oriented, cooperative and in no apparent distress. Eyes: Following during examination. No redness or drainage. Respiratory: RR normal and nonlabored. Even breathing. No evidence of distress. Psychology: Patient is engaged during conversation. Normal affect and mood. Does not appear depressed or anxious. NVSI unchanged from previous visit. Dermatological: Nails 1-5 b/l are normal. Webspaces clean and dry 1-4 b/l. Skin appears well hydrated and supple. good color, texture, turgor. No open lesions present. Pre- ulcerative callus is noted to b/l hallux ipj. No open wounds noted to right hallux following debridement of pre-ulcerative lesion, with exception to a small area of pinpoint bleeding. There is superficial ulceration with bleeding upon debridement of left hallux. Ulceration measures about 1.0 cm x 1.0 cm. No signs of infection. Musculoskeletal/Orthopaedic: Patient has pain to palpation of left halux at site of pre-ulcerative lesion. Rom of b/l hallux ipj is decreased ASSESSMENT: (L97.521) Ulcer of toe of left foot, limited to breakdown of skin (HCC) (primary encounter diagnosis) PLAN: Discussed ulceration of left hallux ipj. Differential for hallux ulceration include ulceration related to neuropathy combined with arthritis of hallux ipj. Other etiology for wound of left hallux includes wart vs skin malignancy. I do favor more pressure ulceration given neuropathy, arthritis of ipj in a patient with obesity. I do feel options for patient include proper foot wearing with isnerts to offload the ipj vs consideration into diabetic shoes now that he is diabetic. Other options include hallux ipj arthroplasty if wound continues to persist. All nonviable tissue thru dermis debrided of left hallux with tissue nippers and 15 blade. Total debridement was 1.0 cm x 1.0 cm. Bleeding was present and controlled with pressure. Shave biopsy was performed. Pending results and pending progress with offloading, may consider deep biopsy if necessary vs referral to derm for evaluation. Pre-ulcerative callus of right hallux was reduced with 15 blade as courtesy Dispensed surgical shoe for left hallux. He can use surgical shoe with offloading pad. Would preferhim to take time off work. If he is unable to, would have him use gel inserts with donut hole padding. Xrays ordered F/u in 2 weeks Shivam Cunningham DPM * Shila Cao LPN - 06/06/2024 9:43 AM EST AMB ROOMING INTAKE FLOWSHEET DATA Pain Pain Level: 10 Pain Location: Toe Description: Sharp Duration Amount of Time: 1 Duration Units: Months Frequency: Intermittent Intervention/Comfort measure: Relaxation, Reposition Patient presents with: Right Great Toe - Established Patient, Ulcer Left Great Toe - Established Patient, Ulcer, Tumor/Mass, Pain Patient states that he tried to see if there was anything inside of left great toe ulcer 1 month ago by sterilizing a needle and sticking it in toe to see what came out. Patient states there was no purulent drainage and only blood came out. Shila Cao LPN documented [facility] Instructions* Patient Instructions* Shivam Cunningham - 06/06/2024 10:16 AM EST Apply silver gel to left hallux daily Await results of pathology If you are unable to take time off work, use insert with donut hole pad to offload ulceration Follow-up in 2 weeks documented in this encounterW[facility]24 NoteHNO ID: [id number] Author: SHIVAM CUNNINGHAM, ? Service: ? Author Type: Physician Type: Progress Notes Filed: 06/07/2024 07:41 Note Text: FOLLOW UP PODIATRIC OFFICE VISIT Chief Complaint: This 38 year old who presents for follow up: Patient has been doing the following since last visit: b/l hallux ulceration Patient presetns to clinic for evaluation of b/l feet Complains of painful callus of b/l hallux Was seen in April and they were resolved Recently found out he is pre-diabetic. Wound of left hallux has now since returned. He complains of pain to left great toe PAIN EVALUATION 06/06/2024 0945 Pain Level: 10 Pain Location: Toe Description: Sharp Duration Amount of Time: 1 Duration Units: Months Frequency: Intermittent Intervention/Comfort measure: Relaxation;Reposition Hemoglobin A1C Date Value Ref Range Status 05/10/2024 6.3 (H) 4.3 - 5.6 % Final Comment: [place] [employer] guidelines indicate that patients with HgbA1c in the range 5.7-6.4% are at increased risk for development of diabetes, and intervention by lifestyle modification may be beneficial. HgbA1c greater or equal to 6.5% is considered diagnostic of diabetes. PCP: Marvin Sheets MD PAST MEDICAL HISTORY Diagnosis Date ADD (attention deficit disorder) Essential hypertension Febrile convulsions (simple), unspecified PMH - PAST MEDICAL HISTORY OF Color Vision - Normal Routine or ritual circumcision Current Outpatient Medications Medication Sig lisdexamfetamine (VYVANSE) 70 mg capsule Take 1 capsule by mouth once daily for 30 days. semaglutide, weight loss, (WEGOVY) 0.5 mg/0.5 mL pen injector Inject 0.5 mL subcutaneously one time a week. traZODone (DESYREL) 50 mg tablet Take 1 tablet by mouth daily at bedtime. [START ON 06/23/2024] lisdexamfetamine (VYVANSE) 70 mg capsule Take 1 capsule by mouth once daily for 30 days. Patient should start on June 23, 2024. gel base no.41, bulk, (HYDROGEL) gel Apply to left great toe ulceration daily cyclobenzaprine (FLEXERIL) 10 mg tablet Take 1 tablet by mouth three times a day as needed for muscle spasm. keTORolac (TORADOL) 10 mg tablet Take 1 tablet by mouth every 6 hours as needed. olopatadine (PATANOL) 0.1 % ophthalmic solution USE 1-2 DROPS IN BOTH EYES TWICE DAILY sertraline (ZOLOFT) 100 mg tablet Take 1 tablet by mouth once daily. meloxicam (MOBIC) 15 mg tablet Take 1 tablet by mouth once daily. Take with food. fluticasone (FLONASE) 50 mcg/actuation nasal spray Use 2 Sprays in each nostril once daily. hydroCHLOROthiazide 12.5 mg capsule Take 1 capsule by mouth once daily. lisinopril (ZESTRIL) 10 mg tablet Take 1 tablet by mouth once daily. ondansetron orally disintegrating (ZOFRAN ODT) 4 mg disintegrating tablet Take 1 tablet by mouth every 6 hours as needed for nausea/vomiting. albuterol HFA (PROAIR HFA) 90 mcg/actuation inhaler Inhale 2 Puffs as instructed every 6 hours as needed. Clobetasol Propionate (TEMOVATE) 0.05 % external solution MIX 1 BOTTLE INTO A 1LB TUB OF CERAVE AND APPLY 1X DAILY TO ANY AREAS OF RASH YOU CAN SEE OR FEEL. lisdexamfetamine (VYVANSE) 70 mg capsule Take 1 capsule by mouth once daily for 30 days. lisdexamfetamine (VYVANSE) 70 mg capsule Take 1 capsule by mouth once daily for 30 days. No current facility-administered medications for this visit. ALLERGIES Allergen Reactions Elidel [Macrolide I* Itching Burning and severe itching Pollen Cough PAST SURGICAL HISTORY Procedure Laterality Date LX REPAIR RECURRENT VENTRAL HERNIA 04/2023 TONSILLECTOMY AND ADENOIDECTOMY TYMPANOSTOMY LOCAL/TOPICAL ANESTHESIA age 6 year Physical Exam: OBJECTIVE: Constitutional: Pt is a well developed 38 year old male who is alert, oriented, cooperative and in no apparent distress. Eyes: Following during examination. No redness or drainage. Respiratory: RR normal and nonlabored. Even breathing. No evidence of distress. Psychology: Patient is engaged during conversation. Normal affect and mood. Does not appear depressed or anxious. NVSI unchanged from previous visit. Dermatological: Nails 1-5 b/l are normal. Webspaces clean and dry 1-4 b/l. Skin appears well hydrated and supple. good color, texture, turgor. No open lesions present. Pre-ulcerative callus is noted to b/l hallux ipj. No open wounds noted to right hallux following debridement of pre-ulcerative lesion, with exception to a small area of pinpoint bleeding. There is superficial ulceration with bleeding upon debridement of left hallux. Ulceration measures about 1.0 cm x 1.0 cm. No signs of infection. Musculoskeletal/Orthopaedic: Patient has pain to palpation of left halux at site of pre-ulcerative lesion. Rom of b/l hallux ipj is decreased ASSESSMENT: (L97.521) Ulcer of toe of left foot, limited to breakdown of skin (HCC) (primary encounter diagnosis) PLAN: Discussed ulceration of left hallux ipj. Differential (more content not included)...[facility]11-05-2024 NoteHNO ID: [id number] Author: SHILA CAO LPN Service: ? Author Type: LICENSED NURSE Type: Progress Notes Filed: 06/07/2024 07:41 Note Text: AMB ROOMING INTAKE FLOWSHEET DATA Pain Pain Level: 10 Pain Location: Toe Description: Sharp Duration Amount of Time: 1 Duration Units: Months Frequency: Intermittent Intervention/Comfort measure: Relaxation, Reposition Patient presents with: Right Great Toe - Established Patient, Ulcer Left Great Toe - Established Patient, Ulcer, Tumor/Mass, Pain Patient states that he tried to see if there was anything inside of left great toe ulcer 1 month ago by sterilizing a needle and sticking it in toe to see what came out. Patient states there was no purulent drainage and only blood came out. [facility] Tele[facility] encounter Note* Telephone Encounter - Marvin Sheets MD - 05/25/2024 8:14 AM EDT OK to refill as ordered Marvin Sheets MD [facility]10-24-[facility]24 Miscellaneous Notes* Telephone Encounter - Marvin Sheets MD - 05/25/2024 8:14 AM EDT OK to refill as ordered Marvin Sheets MD * Telephone Encounter - Tabatha Palma LPN - 05/24/2024 1:15 PM EDT Prescription Refill Information The patient has been identified by name and date of : Yes Caregiver verified no other encounters exist for this prescription request: Yes Caregiver confirmed with patient/requestor that no other refills are due, in the near future, with this provider at this time: Yes The last office visit in the department: 05/10/24 Does the patient have a future office visit with this provider/department: Yes 06/12/24 Requested Prescriptions Pending Prescriptions Disp Refills lisdexamfetamine (VYVANSE) 70 mg capsule 30 capsule 0 Sig: Take 1 capsule by mouth once daily for 30 days. Tabatha Palma LPN May 24, 2024 1:15 PM documented in this encounterW[facility]10-23-2024 Telephone encounter Note * Telephone Encounter - Tabatha Palma LPN - 05/24/2024 1:15 PM EDT Prescription Refill Information The patient has been identified by name and date of : Yes Caregiver verified no other encounters exist for this prescription request: Yes Caregiver confirmed with patient/requestor that no other refills are due, in the near future, with this provider at this time: Yes The last office visit in the department: 05/10/24 Does the patient have a future office visit with this provider/department: Yes 06/12/24 Requested Prescriptions Pending Prescriptions Disp Refills lisdexamfetamine (VYVANSE) 70 mg capsule 30 capsule 0 Sig: Take 1 capsule by mouth once daily for 30 days. Tabatha Palma LPN May 24, 2024 1:15 PM [facility]10-14-2024 Telephone encounter Note* Telephone Encounter - Fela Valdez LPN - 05/15/2024 11:44 AM EDT Pt notified via my chart. [facility]-14-[facility]24 Miscellaneous Notes* Telephone Encounter - Fela Valdez LPN - 05/15/2024 11:44 AM EDT Pt notified via my chart. * Telephone Encounter - Fela Valdez LPN - 05/15/2024 11:41 AM EDT Images from the original note were not included. Prior authorization approved Payer: SWATHI Guidry [phone] Note from payer: Your PA request has been approved. Additional information will be provided in the approval communication. (Message 1143) Approval Details Authorized from May 15, 2024 to December 11, 2024 Electronic appeal: Not supported View History Notes Time User Attachment Attachment received from payer. 05/15/2024 9:39 AM [facility], Rx Priorauth In Document Medication Being Authorized semaglutide, weight loss, (WEGOVY) 0.5 mg/0.5 mL pen injector Inject 0.5 mL subcutaneously one time a week. Dispense: 2 mL Refills: 0 Start: 05/15/2024 End: 06/14/2024 Class: Normal Diagnoses: BMI 50.0-59.9, adult (HCC); Prediabetes; Elevated hemoglobin A1c This order has been released to its destination. To be filled at: [facility] [id number] - [address] [place] [id number] [id number] * Telephone Encounter - Amina Ivan MA - 05/15/2024 8:38 AM EDT PA for wegovy completed electronically Amina Ivan MA * Telephone Encounter - Tiffanie Gillis APRN.CNP - 05/15/2024 8:26 AM EDT I sent in a prescription for Wegovy. Patient's BMI is 52.8 and he is prediabetic with an A1c of 6.3. Would be helpful if we can find out if any medication is covered to help prevent him from getting diabetes. The following approved medication requests have been transmitted electronically. Requested Prescriptions Signed Prescriptions Disp Refills semaglutide, weight loss, (WEGOVY) 0.5 mg/0.5 mL pen injector 2 mL 0 Sig: Inject 0.5 mL subcutaneously one time a week. Authorizing Provider: TIFFANIE GILLIS APRN.CNP * Telephone Encounter - Fela Valdez LPN - 05/12/2024 4:01 PM EDT This was denied. Dear MAYUR WORTHINGTON: Request for coverage of Mounjaro (tirzepatide) has been denied. A request forprescription coverage for Mounjaro (tirzepatide) was recently submitted on your behalf. After careful consideration and review of the information sent to us, this request was not approved. We understand that this decision may not be what you and your doctor expected. This letter and the enclosed information will explain your options and help you decide what to do next. We reviewed all the supporting information sent to us and used your plan s guidelines to make our decision. Why your request was denied: Your plan only covers this drug when it is used for certain health conditions. Covered useis for type 2 diabetes mellitus. Your plan does not cover the drug for your health condition that your doctor told us you have. We reviewed the information we had. Your request has been denied. Your doctor can send us any new or missing information for us to review. For this drug, you may have to meet other criteria. You can request the drug policy for more details. * Telephone Encounter - Fela Valdez LPN - 05/12/2024 1:09 PM EDT Electronic PA re'd and completed for mounajro. documented in this encounterW[facility]10-14-2024 Telephone encounter Note * Telephone Encounter - Fela Valdez LPN - 05/15/2024 11:41 AM EDT Images from the original note were not included. Prior authorization approved Payer: SWATHI Guidry [phone] Note from payer: Your PA request has been approved. Additional information will be provided in the approval communication. (Message 1148) Approval Details Authorized from May 15, 2024 to December 11, 2024 Electronic appeal: Not supported View History Notes Time User Attachment Attachment received from payer. 05/15/2024 9:39 AM [facility], Rx Priorauth In Document Medication Being Authorized semaglutide, weight loss, (WEGOVY) 0.5 mg/0.5 mL pen injector Inject 0.5 mL subcutaneously one time a week. Dispense: 2 mL Refills: 0 Start: 05/15/2024 End: 06/14/2024 Class: Normal Diagnoses: BMI 50.0-59.9, adult (HCC); Prediabetes; Elevated hemoglobin A1c This order has been released to its destination. To be filled at: [facility] [id number] - [address] [place] [address] [facility] Telephone encounter Note* Telephone Encounter - Amina Ivan MA - 05/15/2024 8:38 AM EDT PA for wegovy completed electronically Amina Ivan MA [facility]10-14-2024 Telephone encounter Note* Telephone Encounter - Tiffanie Gillis APRN.CNP - 05/15/2024 8:26 AM EDT I sent in a prescription for Wegovy. Patient's BMI is 52.8 and he is prediabetic with an A1c of 6.3. Would be helpful if we can find out if any medication is covered to help prevent him from getting diabetes. The following approved medication requests have been transmitted electronically. Requested Prescriptions Signed Prescriptions Disp Refills semaglutide, weight loss, (WEGOVY) 0.5 mg/0.5 mL pen injector 2 mL 0 Sig: Inject 0.5 mL subcutaneously one time a week. Authorizing Provider: TIFFANIE GILLIS APRN.CNP [facility]10-11-2024 Telephone encounter Note* Telephone Encounter - Fela Valdez LPN - 05/12/2024 4:01 PM EDT This was denied. Dear MAYUR WORTHINGTON: Request for coverage of Mounjaro (tirzepatide) has been denied. A request forprescription coverage for Mounjaro (tirzepatide) was recently submitted on your behalf. After careful consideration and review of the information sent to us, this request was not approved. We understand that this decision may not be what you and your doctor expected. This letter and the enclosed information will explain your options and help you decide what to do next. We reviewed all the supporting information sent to us and used your plan s guidelines to make our decision. Why your request was denied: Your plan only covers this drug when it is used for certain health conditions. Covered useis for type 2 diabetes mellitus. Your plan does not cover the drug for your health condition that your doctor told us you have. We reviewed the information we had. Your request has been denied. Your doctor can send us any new or missing information for us to review. For this drug, you may have to meet other criteria. You can request the drug policy for more details. [facility]-11-[facility] Telephone encounter Note* Telephone Encounter - Fela Valdez LPN - 05/12/2024 1:09 PM EDT Electronic PA re'd and completed for mounajro. [facility] Telephone encounter Note* Telephone Encounter - Tiffanie Gillis APRN.CNP - 05/12/2024 1:05 PM EDT The following approved medication requests have been transmitted electronically. Requested Prescriptions Signed Prescriptions Disp Refills tirzepatide (MOUNJARO) 2.5 mg/0.5 mL pen injector 2 mL 2 Sig: Inject 2.5 mg subcutaneously one time a week. Authorizing Provider: TIFFANIE GILLIS APRN.CNP [facility]-11-2024 Miscellaneous Notes* Telephone Encounter - Tiffanie Gillis APRN.CNP - 05/12/2024 1:05 PM EDT The following approved medication requests have been transmitted electronically. Requested Prescriptions Signed Prescriptions Disp Refills tirzepatide (MOUNJARO) 2.5 mg/0.5 mL pen injector 2 mL 2 Sig: Inject 2.5 mg subcutaneously one time a week. Authorizing Provider: TIFFANIE GILLIS APRN.CNP * Telephone Encounter - Rosie Quintero RN - 05/12/2024 12:45 PM EDT Pt called and is notified of providers results and instructions. Sent information to Pts MyChart per Pt request. Pt voices understanding. Pt states he is ok with provider trying to send either medication in for him, and his pharmacy is [facility] in [place]. Rosie Quintero RN * Telephone Encounter - Tiffanie Gillis APRN.CNP - 05/12/2024 12:21 PM EDT Please call the patient and let him know that I reviewed his lab results. Thyroid was normal. A1c was 6.3, this is considered prediabetes. Diabetes starts at 6.5. I know during office visit we discussed weight loss options. I can send in a prescription for either Ozempic or Moujaro to see if insurance will cover this due to the prediabetes. In the meantime I want him to work on eating a low-carb diet. Decrease the processed foods in the diet, increase lean protein, vegetables, get some form of exercise. I would like to repeat fasting labs in 3 months with office visit. If he is agreeable to starting medication please verify pharmacy. Tiffanie Gillis APRN.CNP documented in this encounterW[facility]10-11-2024 Telephone encounter Note * Telephone Encounter - Rosie Quintero RN - 05/12/2024 12:45 PM EDT Pt called and is notified of providers results and instructions. Sent information to Pts MyChart per Pt request. Pt voices understanding. Pt states he is ok with provider trying to send either medication in for him, and his pharmacy is [facility] in [place]. Rosie Quintero RN [facility]10-11-2024 Telephone encounter Note* Telephone Encounter - Tiffanie Gillis APRN.CNP - 05/12/2024 12:21 PM EDT Please call the patient and let him know that I reviewed his lab results. Thyroid was normal. A1c was 6.3, this is considered prediabetes. Diabetes starts at 6.5. I know during office visit we discussed weight loss options. I can send in a prescription for either Ozempic or Moujaro to see if insurance will cover this due to the prediabetes. In the meantime I want him to work on eating a low-carb diet. Decrease the processed foods in the diet, increase lean protein, vegetables, get some form of exercise. I would like to repeat fasting labs in 3 months with office visit. If he is agreeable to starting medication please verify pharmacy. Tiffanie Gillis APRN.CNP [facility]10-09-[facility] History of Present illness Narrative* Tiffanie Gillis 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 - 05/10/2024 8:40 AM EDT This is a 38 year old male who presents today with: Patient presents with: Acute Visit: struggling to sleep at night HISTORY OF PRESENT ILLNESS: Mayur Worthington is a 38 year old male. Patient presents with: Acute Visit: struggling to sleep at night Here in the office to discuss sleep. Refers that he has been having difficulty falling and staying asleep for the past 1-2 months. Sleep is broken up, getting a couple hours per night. No nightmares.Has fallen out of bed twice. Does have snoring, has been told he may need a sleep study. Concerns if insurance will cover testing. ADHD, taking vyvanse 70 mg daily. Taking 12:00 pm. Working 11am-11pm or 3pm-11 pm. Tolerating medication. Mood: Taking Zoloft 100 mg daily. Symptoms well controlled. Denies any increased sadness, anxiety, or SI/HI. Weight: Going to the Gym 2-3 days per week. Not watching diet. Weight in January was 401 pounds, today's weight 411 pounds. Refers that he has noticed increasing weight gain with prednisone usage. Blood pressure elevated today, refers he has not taken his medication yet. PAST MEDICAL HISTORY: PAST MEDICAL HISTORY Diagnosis Date ADD (attention deficit disorder) Essential hypertension Febrile convulsions (simple), unspecified PMH - PAST MEDICAL HISTORY OF Color Vision - Normal Routine or ritual circumcision PAST SURGICAL HISTORY Procedure Laterality Date LX REPAIR RECURRENT VENTRAL HERNIA 04/2023 TONSILLECTOMY & ADENOIDECTOMY <AGE 14 TYMPANOSTOMY LOCAL/TOPICAL ANESTHESIA age 6 year ALLERGIES Elidel [Macrolide Immunosuppressant] and Pollen MEDICATIONS Current Outpatient Medications Medication Sig lisdexamfetamine (VYVANSE) 70 mg capsule Take 1 capsule by mouth once daily for 30 days. [START ON 05/24/2024] lisdexamfetamine (VYVANSE) 70 mg capsule Take 1 capsule by mouth once daily for 30 days. Patient should start on May 24, 2024. [START ON 06/23/2024] lisdexamfetamine (VYVANSE) 70 mg capsule Take 1 capsule by mouth once daily for 30 days. Patient should start on June 23, 2024. lisdexamfetamine (VYVANSE) 70 mg capsule Take 1 capsule by mouth once daily for 30 days. gel base no.41, bulk, (HYDROGEL) gel Apply to left great toe ulceration daily cyclobenzaprine (FLEXERIL) 10 mg tablet Take 1 tablet by mouth three times a day as needed for muscle spasm. keTORolac (TORADOL) 10 mg tablet Take 1 tablet by mouth every 6 hours as needed. olopatadine (PATANOL) 0.1 % ophthalmic solution USE 1-2 DROPS IN BOTH EYES TWICE DAILY sertraline (ZOLOFT) 100 mg tablet Take 1 tablet by mouth once daily. meloxicam (MOBIC) 15 mg tablet Take 1 tablet by mouth once daily. Take with food. fluticasone (FLONASE) 50 mcg/actuation nasal spray Use 2 Sprays in each nostril once daily. hydroCHLOROthiazide 12.5 mg capsule Take 1 capsule by mouth once daily. lisinopril (ZESTRIL) 10 mg tablet Take 1 tablet by mouth once daily. ondansetron orally disintegrating (ZOFRAN ODT) 4 mg disintegrating tablet Take 1 tablet by mouth every 6 hours as needed for nausea/vomiting. albuterol HFA (PROAIR HFA) 90 mcg/actuation inhaler Inhale 2 Puffs as instructed every 6 hours as needed. Clobetasol Propionate (TEMOVATE) 0.05 % external solution MIX 1 BOTTLE INTO A 1LB TUB OF CERAVE ANDAPPLY 1X DAILY TO ANY AREAS OF RASH YOU CAN SEE OR FEEL. No current facility-administered medications for this visit. FAMILY HISTORY Problem Relation Age of Onset other (heart failure [Other]) [facility] 51 Social History Tobacco Use Smoking status: Former Current packs/day: 1.00 Types: Cigarettes Smokeless tobacco: Former Types: Chew Vaping Use Vaping status: Former Substance Use Topics Alcohol use: No Drug use: Never REVIEW OF SYSTEMS GENERAL: + Weight Gain HEENT: Negative for frequent or significant headaches, No changes in hearing or vision. NECK: Negative for lumps, goiter, pain and significant neck swelling RESPIRATORY: Negative for cough, hemoptysis, wheezing, dyspnea or shortness of breath CARDIOVASCULAR: Negative for chest pain, leg swelling, orthopnea, or palpitations GI: No nausea, vomiting, or diarrhea/constipation. No hematochezia/melena. No heartburn or reflux symptoms. : No history of dysuria, frequency or incontinence MUSCULOSKELETAL: Negative for joint pain or swelling. SKIN: Negative for lesions, rash, and itching ENDOCRINE: Negative for cold or heat intolerance, polyuria, polydipsia and goiter NEURO: No history of headaches, syncope, paralysis, seizures or tremors MOOD: Difficulty sleeping, snoring EXAM: BP 150/98 Pulse 92 Resp 16 Wt (!) 186.7 kg (411 lb 9.6 oz) SpO2 96% BMI 52.85 kg/m PHYSICAL EXAM: General Appearance: Well appearing, alert, in no acute distress, well-hydrated, well nourished. andMorbidly obese. Skin: Skin color, texture, turgor normal, no suspicious rashes or lesions. Head: Normocephalic, no masses, lesions, tenderness or abnormalities. Eyes: Anicteric sclera. Extraocular movements are intact. Neck: Supple, no adenopathy; thyroid symmetric, normal size, no bruits. Lungs: Lungs clear to auscultation. No wheezing, rhonchi, rales. Heart: RRR without murmur, gallop, or rubs. No ectopy. Extremities: No deformities, edema, skin discoloration, clubbing or cyanosis. Good capillary refill. . Peripheral Pulses: Normal, Capillary refill <2secs, strong peripheral pulses, Pulses palpable. Neurologic: Gait normal. Sensation grossly intact. ASSESSMENT/PLAN: 1. Difficulty sleeping - ICD9: 780.50, ICD10: G47.9 (primary diagnosis) - May use trazodone as needed for difficulty with sleep. - Recommend sleep study, may check with insurance about coverage. - Medication education and instructions provided. - TRAZODONE 50 MG TABLET 2. Weight gain - ICD9: 783.1, ICD10: R63.5 - Get labs completed. - Recommend tracking food, increase lean protein, vegetables, and get some form exercise. - Patient will check with insurance about weight loss medication coverage. - COMPREHENSIVE METABOLIC PANEL - HEMOGLOBIN A1C - THYROID STIMULATING HORMONE - T4 FREE/FREE THYROXINE 3. Snoring - ICD9: 786.09, ICD10: R06.83 - Same plan as #1. 4. Essential hypertension - ICD9: 401.9, ICD10: I10 - Continue to take current medication. - Recommend home blood pressure monitoring, to bring results to next visit - Encouraged sodium restriction, DASH or Mediterranean diet - Recommend regular aerobic exercise - Discussed need for and benefit of weight loss. BMI 52.85 kg/(m^2) Follow-up as scheduled or sooner pending test results. Discussed treatment plan and patient voices understanding. Patient's questions answered appropriately. Medications and potential side effects were discussed and patient voices understanding. Tiffanie Gillis APRN.CNP This note was partially generated using [employer] voice recognition system. Note was reviewed for accuracy. There may be minor misspellings or grammar miscues with [employer] voice recognition. documented in this encounter[facility] Instructions* Patient Instructions* Tiffanie Gillis APRN.CNP - 05/10/2024 8:40 AM EDT Get labs completed Check with insurance about sleep study and weight loss medication coverage May try trazodone 50 mg prior to bed, allow 7-8 hours to sleep. May cause dry mouth. If needed may titrate up, do not go past 150 mg. Recommend tracking food, myfitnesspal phone blanca. Increase protein, veggies, and get some form of exercise. Follow up as scheduled or sooner pending test results. Weight loss Medication Wegovy Ozempic or other GLP injectables Qysmia Contrave Quest bars, protein powders: 1st phorm, progenex documented in this encounterW[facility]10-[facility]24 NoteHNO ID: [id number] Author: TIFFANIE GILLIS APRN.CNP Service: ? Author Type: Nurse Practitioner Type: Progress Notes Filed: 05/10/2024 08:50 Note Text: This is a 38 year old male who presents today with: Patient presents with: Acute Visit: struggling to sleep at night HISTORY OF PRESENT ILLNESS: Mayur Worthington is a 38 year old male. Patient presents with: Acute Visit: struggling to sleep at night Here in the office to discuss sleep. Refers that he has been having difficulty falling and staying asleep for the past 1-2 months. Sleep is broken up, getting a couple hours per night. No nightmares. Has fallen out of bed twice. Does have snoring, has been told he may need a sleep study. Concerns if insurance will cover testing. ADHD, taking vyvanse 70 mg daily. Taking 12:00 pm. Working 11am-11pm or 3pm-11 pm. Tolerating medication. Mood: Taking Zoloft 100 mg daily. Symptoms well controlled. Denies any increased sadness, anxiety, or SI/HI. Weight: Going to the Gym 2-3 days per week. Not watching diet. Weight in January was 401 pounds, today's weight 411 pounds. Refers that he has noticed increasing weight gain with prednisone usage. Blood pressure elevated today, refers he has not taken his medication yet. PAST MEDICAL HISTORY: PAST MEDICAL HISTORY Diagnosis Date ADD (attention deficit disorder) Essential hypertension Febrile convulsions (simple), unspecified PMH - PAST MEDICAL HISTORY OF Color Vision - Normal Routine or ritual circumcision PAST SURGICAL HISTORY Procedure Laterality Date LX REPAIR RECURRENT VENTRAL HERNIA 04/2023 TONSILLECTOMY AND ADENOIDECTOMY TYMPANOSTOMY LOCAL/TOPICAL ANESTHESIA age 6 year ALLERGIES Elidel [Macrolide Immunosuppressant] and Pollen MEDICATIONS Current Outpatient Medications Medication Sig lisdexamfetamine (VYVANSE) 70 mg capsule Take 1 capsule by mouth once daily for 30 days. [START ON 05/24/2024] lisdexamfetamine (VYVANSE) 70 mg capsule Take 1 capsule by mouth once daily for 30 days. Patient should start on May 24, 2024. [START ON 06/23/2024] lisdexamfetamine (VYVANSE) 70 mg capsule Take 1 capsule by mouth once daily for 30 days. Patient should start on June 23, 2024. lisdexamfetamine (VYVANSE) 70 mg capsule Take 1 capsule by mouth once daily for 30 days. gel base no.41, bulk, (HYDROGEL) gel Apply to left great toe ulceration daily cyclobenzaprine (FLEXERIL) 10 mg tablet Take 1 tablet by mouth three times a day as needed for muscle spasm. keTORolac (TORADOL) 10 mg tablet Take 1 tablet by mouth every 6 hours as needed. olopatadine (PATANOL) 0.1 % ophthalmic solution USE 1-2 DROPS IN BOTH EYES TWICE DAILY sertraline (ZOLOFT) 100 mg tablet Take 1 tablet by mouth once daily. meloxicam (MOBIC) 15 mg tablet Take 1 tablet by mouth once daily. Take with food. fluticasone (FLONASE) 50 mcg/actuation nasal spray Use 2 Sprays in each nostril once daily. hydroCHLOROthiazide 12.5 mg capsule Take 1 capsule by mouth once daily. lisinopril (ZESTRIL) 10 mg tablet Take 1 tablet by mouth once daily. ondansetron orally disintegrating (ZOFRAN ODT) 4 mg disintegrating tablet Take 1 tablet by mouth every 6 hours as needed for nausea/vomiting. albuterol HFA (PROAIR HFA) 90 mcg/actuation inhaler Inhale 2 Puffs as instructed every 6 hours as needed. Clobetasol Propionate (TEMOVATE) 0.05 % external solution MIX 1 BOTTLE INTO A 1LB TUB OF CERAVE AND APPLY 1X DAILY TO ANY AREAS OF RASH YOU CAN SEE OR FEEL. No current facility-administered medications for this visit. FAMILY HISTORY Problem Relation Age of Onset other (heart failure [Other]) Other [facility] age 49 Social History Tobacco Use Smoking status: Former Current packs/day: 1.00 Types: Cigarettes Smokeless tobacco: Former Types: Chew Vaping Use Vaping status: Former Substance Use Topics Alcohol use: No Drug use: Never REVIEW OF SYSTEMS GENERAL: + Weight Gain HEENT: Negative for frequent or significant headaches, No changes in hearing or vision. NECK: Negative for lumps, goiter, pain and significant neck swelling RESPIRATORY: Negative for cough, hemoptysis, wheezing, dyspnea or shortness of breath CARDIOVASCULAR: Negative for chest pain, leg swelling, orthopnea, or palpitations GI: No nausea, vomiting, or diarrhea/constipation. No hematochezia/melena. No heartburn or reflux symptoms. : No history of dysuria, frequency or incontinence MUSCULOSKELETAL: Negative for joint pain or swelling. SKIN: Negative for lesions, rash, and itching ENDOCRINE: Negative for cold or heat intolerance, polyuria, polydipsia and goiter NEURO: No history of headaches, syncope, paralysis, seizures or tremors MOOD: Difficulty sleeping, snoring EXAM: BP 150/98 Pulse 92 Resp 16 Wt (!) 186.7 kg (411 lb 9.6 oz) SpO2 96% BMI 52.85 kg/m? PHYSICAL EXAM: General Appearance: Well appearing, alert, in no acute distress, well-hydrated, well nou (more content not included)...[facility]09-23-2024 Telephone encounter Note* Telephone Encounter - Tiffanie Gillis APRN.CNP - 04/24/2024 2:00 PM EDT The following approved medication requests have been transmitted electronically. Requested Prescriptions Signed Prescriptions Disp Refills lisdexamfetamine (VYVANSE) 70 mg capsule 30 capsule 0 Sig: Take 1 capsule by mouth once daily for 30 days. Authorizing Provider: TIFFANIE GILLIS lisdexamfetamine (VYVANSE) 70 mg capsule 30 capsule 0 Sig: Take 1 capsule by mouth once daily for 30 days. Patient should start on May 24, 2024. Authorizing Provider: TIFFANIE GILLIS lisdexamfetamine (VYVANSE) 70 mg capsule 30 capsule 0 Sig: Take 1 capsule by mouth once daily for 30 days. Patient should start on June 23, 2024. Authorizing Provider: TIFFANIE GILLIS APRN.CNP PDMP website checked and validated. All prescriptions have been APPROPRIATELY filled. No suspiciousactivity was identified. 04/24/2024 by Tiffanie Gillis APRN.CNP [facility]09-23-[facility] Miscellaneous Notes* Telephone Encounter - Tiffanie Gillis APRN.CNP - 04/24/2024 2:00 PM EDT The following approved medication requests have been transmitted electronically. Requested Prescriptions Signed Prescriptions Disp Refills lisdexamfetamine (VYVANSE) 70 mg capsule 30 capsule 0 Sig: Take 1 capsule by mouth once daily for 30 days. Authorizing Provider: TIFFANIE GILLIS lisdexamfetamine (VYVANSE) 70 mg capsule 30 capsule 0 Sig: Take 1 capsule by mouth once daily for 30 days. Patient should start on May 24, 2024. Authorizing Provider: TIFFANIE GILLIS lisdexamfetamine (VYVANSE) 70 mg capsule 30 capsule 0 Sig: Take 1 capsule by mouth once daily for 30 days. Patient should start on June 23, 2024. Authorizing Provider: TIFFANIE GILLIS APRN.CNP PDMP website checked and validated. All prescriptions have been APPROPRIATELY filled. No suspiciousactivity was identified. 04/24/2024 by Tiffanie Gillis APRN.WALE * Telephone Encounter - Tamera Bar LPN - 04/24/2024 12:42 PM EDT Prescription Refill Information The patient has been identified by name and date of : Yes Caregiver verified no other encounters exist for this prescription request: Yes Caregiver confirmed with patient/requestor that no other refills are due, in the near future, with this provider at this time: Yes The last office visit in the department: 03/06/2024 Does the patient have a future office visit with this provider/department: Yes Requested Prescriptions Pending Prescriptions Disp Refills lisdexamfetamine (VYVANSE) 70 mg capsule 30 capsule 0 Sig: Take 1 capsule by mouth once daily for 30 days. Tamera Bar LPN April 24, 2024 12:42 PM documented in this encounterW[facility]09-23-[facility] Telephone encounter Note * Telephone Encounter - Tamera Bar LPN - 04/24/2024 12:42 PM EDT Prescription Refill Information The patient has been identified by name and date of : Yes Caregiver verified no other encounters exist for this prescription request: Yes Caregiver confirmed with patient/requestor that no other refills are due, in the near future, with this provider at this time: Yes The last office visit in the department: 03/06/2024 Does the patient have a future office visit with this provider/department: Yes Requested Prescriptions Pending Prescriptions Disp Refills lisdexamfetamine (VYVANSE) 70 mg capsule 30 capsule 0 Sig: Take 1 capsule by mouth once daily for 30 days. Tamera Bar LPN April 24, 2024 12:42 PM [facility]09-[facility]24 NoteHNO ID: [id number] Author: SHIVAM CUNNINGHAM, ? Service: ? Author Type: Physician Type: Progress Notes Filed: 04/24/2024 08:19 Note Text: FOLLOW UP PODIATRIC OFFICE VISIT Chief Complaint: This 38 year old who presents for follow up:left hallux ulceration. Patient presents to clinic for follow-up left hallux ulceration Patient is currently applying silver gel to left great toe. Feels it is helping States he has only filed the lesion down once with pummice stone. Still has some pain. No other complaints. PAIN EVALUATION No data found in the last 1 encounters. No results found for: HBA1C PCP: Marvin Sheets MD PAST MEDICAL HISTORY Diagnosis Date ADD (attention deficit disorder) Essential hypertension Febrile convulsions (simple), unspecified PMH - PAST MEDICAL HISTORY OF Color Vision - Normal Routine or ritual circumcision Current Outpatient Medications Medication Sig lisdexamfetamine (VYVANSE) 70 mg capsule Take 1 capsule by mouth once daily for 30 days. gel base no.41, bulk, (HYDROGEL) gel Apply to left great toe ulceration daily cyclobenzaprine (FLEXERIL) 10 mg tablet Take 1 tablet by mouth three times a day as needed for muscle spasm. keTORolac (TORADOL) 10 mg tablet Take 1 tablet by mouth every 6 hours as needed. olopatadine (PATANOL) 0.1 % ophthalmic solution USE 1-2 DROPS IN BOTH EYES TWICE DAILY sertraline (ZOLOFT) 100 mg tablet Take 1 tablet by mouth once daily. meloxicam (MOBIC) 15 mg tablet Take 1 tablet by mouth once daily. Take with food. fluticasone (FLONASE) 50 mcg/actuation nasal spray Use 2 Sprays in each nostril once daily. hydroCHLOROthiazide 12.5 mg capsule Take 1 capsule by mouth once daily. lisinopril (ZESTRIL) 10 mg tablet Take 1 tablet by mouth once daily. ondansetron orally disintegrating (ZOFRAN ODT) 4 mg disintegrating tablet Take 1 tablet by mouth every 6 hours as needed for nausea/vomiting. albuterol HFA (PROAIR HFA) 90 mcg/actuation inhaler Inhale 2 Puffs as instructed every 6 hours as needed. Clobetasol Propionate (TEMOVATE) 0.05 % external solution MIX 1 BOTTLE INTO A 1LB TUB OF CERAVE AND APPLY 1X DAILY TO ANY AREAS OF RASH YOU CAN SEE OR FEEL. No current facility-administered medications for this visit. ALLERGIES Allergen Reactions Elidel [Macrolide I* Itching Burning and severe itching Pollen Cough PAST SURGICAL HISTORY Procedure Laterality Date LX REPAIR RECURRENT VENTRAL HERNIA 04/2023 TONSILLECTOMY AND ADENOIDECTOMY TYMPANOSTOMY LOCAL/TOPICAL ANESTHESIA age 6 year Physical Exam: OBJECTIVE: Constitutional: Pt is a well developed 38 year old male who is alert, oriented, cooperative and in no apparent distress. Eyes: Following during examination. No redness or drainage. Respiratory: RR normal and nonlabored. Even breathing. No evidence of distress. Psychology: Patient is engaged during conversation. Normal affect and mood. Does not appear depressed or anxious. NVSI unchanged from previous visit. Dermatological: Nails 1-5 b/l are normal. Webspaces clean and dry 1-4 b/l. Skin appears well hydrated and supple. good color, texture, turgor. No open lesions present. Fissure is present to left heel and left hallux. Prior ulceration is now callus. No open wounds noted Healed blister of left 2nd toe Musculoskeletal/Orthopaedic: Patient has no pain to palpation of b/l feet ASSESSMENT: (L97.501) Skin ulcer of toe, limited to breakdown of skin, unspecified laterality (HCC) (primary encounter diagnosis) (L84) Callus of foot (S90.425A) Blister of toe of left foot, initial encounter PLAN: Discussed skin ulceration of left hallux. Now healed. Only callus which was reduced with 15 blade, tissue nippers and dremmel Patient at this time needs to keep his feet protected with lotion/cream and use of inserts to help provide offloading of b/l great toe If patient prefers, he can f/u in 1 month for callus debridement otherwise, follow-up prn. It is again important for patient to offload the lesion with inserts and perform debridement of callus with pummice stone periodically Healed blister of 2nd toe he was not aware of. Shivam Kendalldilip, [facility]09-23-2024 History of Present illness Narrative* Shivam Cunningham - 04/24/2024 8:08 AM EDT FOLLOW UP PODIATRIC OFFICE VISIT Chief Complaint: This 38 year old who presents for follow up:left hallux ulceration. Patient presents to clinic for follow-up left hallux ulceration Patient is currently applying silver gel to left great toe. Feels it is helping States he has only filed the lesion down once with pummice stone. Still has some pain. No other complaints. PAIN EVALUATION No data found in the last 1 encounters. No results found for: HBA1C PCP: Marvin Sheets MD PAST MEDICAL HISTORY Diagnosis Date ADD (attention deficit disorder) Essential hypertension Febrile convulsions (simple), unspecified PMH - PAST MEDICAL HISTORY OF Color Vision - Normal Routine or ritual circumcision Current Outpatient Medications Medication Sig lisdexamfetamine (VYVANSE) 70 mg capsule Take 1 capsule by mouth once daily for 30 days. gel base no.41, bulk, (HYDROGEL) gel Apply to left great toe ulceration daily cyclobenzaprine (FLEXERIL) 10 mg tablet Take 1 tablet by mouth three times a day as needed for muscle spasm. keTORolac (TORADOL) 10 mg tablet Take 1 tablet by mouth every 6 hours as needed. olopatadine (PATANOL) 0.1 % ophthalmic solution USE 1-2 DROPS IN BOTH EYES TWICE DAILY sertraline (ZOLOFT) 100 mg tablet Take 1 tablet by mouth once daily. meloxicam (MOBIC) 15 mg tablet Take 1 tablet by mouth once daily. Take with food. fluticasone (FLONASE) 50 mcg/actuation nasal spray Use 2 Sprays in each nostril once daily. hydroCHLOROthiazide 12.5 mg capsule Take 1 capsule by mouth once daily. lisinopril (ZESTRIL) 10 mg tablet Take 1 tablet by mouth once daily. ondansetron orally disintegrating (ZOFRAN ODT) 4 mg disintegrating tablet Take 1 tablet by mouth every 6 hours as needed for nausea/vomiting. albuterol HFA (PROAIR HFA) 90 mcg/actuation inhaler Inhale 2 Puffs as instructed every 6 hours as needed. Clobetasol Propionate (TEMOVATE) 0.05 % external solution MIX 1 BOTTLE INTO A 1LB TUB OF CERAVE ANDAPPLY 1X DAILY TO ANY AREAS OF RASH YOU CAN SEE OR FEEL. No current facility-administered medications for this visit. ALLERGIES Allergen Reactions Elidel [Macrolide I* Itching Burning and severe itching Pollen Cough PAST SURGICAL HISTORY Procedure Laterality Date LX REPAIR RECURRENT VENTRAL HERNIA 04/2023 TONSILLECTOMY & ADENOIDECTOMY <AGE 14 TYMPANOSTOMY LOCAL/TOPICAL ANESTHESIA age 6 year Physical Exam: OBJECTIVE: Constitutional: Pt is a well developed 38 year old male who is alert, oriented, cooperative and in no apparent distress. Eyes: Following during examination. No redness or drainage. Respiratory: RR normal and nonlabored. Even breathing. No evidence of distress. Psychology: Patient is engaged during conversation. Normal affect and mood. Does not appear depressed or anxious. NVSI unchanged from previous visit. Dermatological: Nails 1-5 b/l are normal. Webspaces clean and dry 1-4 b/l. Skin appears well hydrated and supple. good color, texture, turgor. No open lesions present. Fissure is present to left heel and left hallux. Prior ulceration is now callus. No open wounds noted Healed blister of left 2nd toe Musculoskeletal/Orthopaedic: Patient has no pain to palpation of b/l feet ASSESSMENT: (L97.501) Skin ulcer of toe, limited to breakdown of skin, unspecified laterality (HCC) (primary encounter diagnosis) (L84) Callus of foot (S90.425A) Blister of toe of left foot, initial encounter PLAN: Discussed skin ulceration of left hallux. Now healed. Only callus which was reduced with 15 blade, tissue nippers and dremmel Patient at this time needs to keep his feet protected with lotion/cream and use of inserts to help provide offloading of b/l great toe If patient prefers, he can f/u in 1 month for callus debridement otherwise, follow-up prn. It is again important for patient to offload the lesion with inserts and perform debridement of callus with pummice stone periodically Healed blister of 2nd toe he was not aware of. Shivam Cunningham DPM * Shila Cao LPN - 04/24/2024 8:04 AM EDT AMB ROOMING INTAKE FLOWSHEET DATA Patient presents with: Left Foot - Follow Up, Ulcer Right Great Toe - Established Patient, Renayfelisha Shila Cao LPN documented in this encounterW[facility]09-23-2024 NoteHNO ID: [id number] Author: SHILA CAO LPN Service: ? Author Type: LICENSED NURSE Type: Progress Notes Filed: 04/24/2024 08:19 Note Text: AMB ROOMING INTAKE FLOWSHEET DATA Patient presents with: Left Foot - Follow Up, Ulcer Right Great Toe - Established Patient, Demetrius REAGAN [facility] Telephone encounter Note* Telephone Encounter - Lupillo Desai LPN - 03/28/2024 2:01 PM EDT Prescription Refill Information The patient has been identified by name and date of : Yes Caregiver verified no other encounters exist for this prescription request: Yes Caregiver confirmed with patient/requestor that no other refills are due, in the near future, with this provider at this time: Yes The last office visit in the department: 03/06/24 Does the patient have a future office visit with this provider/department: Yes, 06/12/24 Requested Prescriptions Pending Prescriptions Disp Refills sertraline (ZOLOFT) 100 mg tablet 90 tablet 3 Sig: Take 1 tablet by mouth once daily. *Last rx written 01/10/24 #90 with 3 refills. Pt is not due for refill. message to pt advising ofthe same. Lupillo Desai LPN March 28, 2024 2:01 PM [facility]08-27-2024 Miscellaneous Notes* Telephone Encounter - Lupillo Desai LPN - 03/28/2024 2:01 PM EDT Prescription Refill Information The patient has been identified by name and date of : Yes Caregiver verified no other encounters exist for this prescription request: Yes Caregiver confirmed with patient/requestor that no other refills are due, in the near future, with this provider at this time: Yes The last office visit in the department: 03/06/24 Does the patient have a future office visit with this provider/department: Yes, 06/12/24 Requested Prescriptions Pending Prescriptions Disp Refills sertraline (ZOLOFT) 100 mg tablet 90 tablet 3 Sig: Take 1 tablet by mouth once daily. *Last rx written 01/10/24 #90 with 3 refills. Pt is not due for refill. message to pt advising ofthe same. Lupillo Desai LPN March 28, 2024 2:01 PM documented in this encounterW[facility]08-22-2024 Instructions* Patient Instructions* Shivam Cunningham - 03/23/2024 10:56 AM EDT Continue with moisturizing lotion to left great toe Follow-up in 1 month documented in this encounterW[facility]08-22-2024 History of Present illness Narrative* Shivam Cunningham - 03/23/2024 10:45 AM EDT FOLLOW UP PODIATRIC OFFICE VISIT Chief Complaint: This 38 year old who presents for follow up:ulceration of left hallux Patient presents to clinic for follow-up left hallux He has ulceration of left hallux . Was using silver gel and this is now healed Does have small fissure to the left hallux that is causing him pain. PAIN EVALUATION No data found in the last 1 encounters. No results found for: HBA1C PCP: Marvin Sheets MD PAST MEDICAL HISTORY No date: ADD (attention deficit disorder) No date: Essential hypertension No date: Febrile convulsions (simple), unspecified No date: PMH - PAST MEDICAL HISTORY OF Comment: Color Vision - Normal No date: Routine or ritual circumcision Current Outpatient Medications Medication Sig lisdexamfetamine (VYVANSE) 70 mg capsule Take 1 capsule by mouth once daily for 30 days. gel base no.41, bulk, (HYDROGEL) gel Apply to left great toe ulceration daily cyclobenzaprine (FLEXERIL) 10 mg tablet Take 1 tablet by mouth three times a day as needed for muscle spasm. keTORolac (TORADOL) 10 mg tablet Take 1 tablet by mouth every 6 hours as needed. olopatadine (PATANOL) 0.1 % ophthalmic solution USE 1-2 DROPS IN BOTH EYES TWICE DAILY sertraline (ZOLOFT) 100 mg tablet Take 1 tablet by mouth once daily. meloxicam (MOBIC) 15 mg tablet Take 1 tablet by mouth once daily. Take with food. fluticasone (FLONASE) 50 mcg/actuation nasal spray Use 2 Sprays in each nostril once daily. hydroCHLOROthiazide 12.5 mg capsule Take 1 capsule by mouth once daily. lisinopril (ZESTRIL) 10 mg tablet Take 1 tablet by mouth once daily. ondansetron orally disintegrating (ZOFRAN ODT) 4 mg disintegrating tablet Take 1 tablet by mouth every 6 hours as needed for nausea/vomiting. albuterol HFA (PROAIR HFA) 90 mcg/actuation inhaler Inhale 2 Puffs as instructed every 6 hours as needed. Clobetasol Propionate (TEMOVATE) 0.05 % external solution MIX 1 BOTTLE INTO A 1LB TUB OF CERAVE ANDAPPLY 1X DAILY TO ANY AREAS OF RASH YOU CAN SEE OR FEEL. No current facility-administered medications for this visit. ALLERGIES Allergen Reactions Elidel [Macrolide I* Itching Burning and severe itching Pollen Cough PAST SURGICAL HISTORY No date: LX REPAIR RECURRENT VENTRAL HERNIA Comment: 04/2023 No date: TONSILLECTOMY & ADENOIDECTOMY <AGE 14 age 6 year: TYMPANOSTOMY LOCAL/TOPICAL ANESTHESIA Physical Exam: OBJECTIVE: Constitutional: Pt is a well developed 38 year old male who is alert, oriented, cooperative and in no apparent distress. Eyes: Following during examination. No redness or drainage. Respiratory: RR normal and nonlabored. Even breathing. No evidence of distress. Psychology: Patient is engaged during conversation. Normal affect and mood. Does not appear depressed or anxious. NVSI unchanged from previous visit. Dermatological: Plantar aspect of left hallux has hyperkeratosis. Prior ulceration is healed. There is painful fissure to left hallux ipj. No signs of infection There is fissure to left heel Musculoskeletal/Orthopaedic: Patient has pain to palpation of left hallux at site of fissure ASSESSMENT: (L97.501) Skin ulcer of toe, limited to breakdown of skin, unspecified laterality (HCC) (primary encounter diagnosis) (L84) Callus of foot PLAN: Skin ulceration is now healed. There is callus to left hallux that was reduced with 15 blade and tissue nippers. I want patient to continue with gel inserts and offloading pad. Can come in periodically for callus debridement Fissure to left hallux was debrided with tissue nippers. Continue with silver gel. Can f/u in 3-4 weeks or as needed Shivam Cunningham DPM * Jackie Espinal RN - 03/23/2024 10:43 AM EDT Patient presents with: Left Foot - Follow Up, Ulcer documented in this encounterW[facility] Note* Addendum Note - Clemente Negro APRN.CNP - 03/22/2024 8:12 PM EDTAddended by: CLEMENTE NEGRO on: 03/22/2024 08:12 PM Modules accepted: Orders [facility]08-21-2024 Miscellaneous Notes* Addendum Note - Clemente Negro APRN.CNP - 03/22/2024 8:12 PM EDTAddended by: CLEMENTE NEGRO on: 03/22/2024 08:12 PM Modules accepted: Orders * Telephone Encounter - Tabatha Palma LPN - 03/22/2024 2:57 PM EDT ANA-03/06/24 Labs-12/06/23 NOV-06/12/24 Tabatha Palma LPN * Telephone Encounter - Tabatha Palma LPN - 03/22/2024 2:54 PM EDT [facility]-03/06/24 Labs-12/06/23Jun-06/12/24 Tabatha Palma LPN documented in this encounterW[facility]08-21-2024 Telephone encounter Note * Telephone Encounter - Tabatha Palma LPN - 03/22/2024 2:57 PM EDT [facility]-03/06/24 Labs-12/06/23Jun-06/12/24 Tabatha Palma LPN [facility]08-21-[facility]24 Telephone encounter Note* Telephone Encounter - Tabatha Palma LPN - 03/22/2024 2:54 PM EDT [facility]-03/06/24 Labs-12/06/23Jun-06/12/24 Tabatha Palma LPN [facility]08-19-2024 Telephone encounter Note* Telephone Encounter - Lupillo Desai LPN - 03/20/2024 1:55 PM EDT Prescription Refill Information The patient has been identified by name and date of : Yes Caregiver verified no other encounters exist for this prescription request: Yes Caregiver confirmed with patient/requestor that no other refills are due, in the near future, with this provider at this time: Yes The last office visit in the department: 03/06/24 Does the patient have a future office visit with this provider/department: Yes, 06/12/24 Requested Prescriptions Pending Prescriptions Disp Refills olopatadine (PATANOL) 0.1 % ophthalmic solution 5 mL 5 Sig: USE 1-2 DROPS IN BOTH EYES TWICE DAILY *Last rx written 02/11/24 5mL with 5 refills. Pt is not due for refill. MC message to pt advising jos bae. Lupillo Desai LPN March 20, 2024 1:55 PM [facility]08-19-2024 Miscellaneous Notes* Telephone Encounter - Lupillo Desai LPN - 03/20/2024 1:55 PM EDT Prescription Refill Information The patient has been identified by name and date of : Yes Caregiver verified no other encounters exist for this prescription request: Yes Caregiver confirmed with patient/requestor that no other refills are due, in the near future, with this provider at this time: Yes The last office visit in the department: 03/06/24 Does the patient have a future office visit with this provider/department: Yes, 06/12/24 Requested Prescriptions Pending Prescriptions Disp Refills olopatadine (PATANOL) 0.1 % ophthalmic solution 5 mL 5 Sig: USE 1-2 DROPS IN BOTH EYES TWICE DAILY *Last rx written 02/11/24 5mL with 5 refills. Pt is not due for refill. MC message to pt advising jos bae. Lupillo Desai LPN March 20, 2024 1:55 PM documented in this encounterW[facility]08-05-2024 Instructions* Patient Instructions* Tiffanie Gillis APRN.CNP - 03/06/2024 2:33 PM EDT Start oral prednisone, take with food Use steroid cream to lower legs 2 times daily May try antihistamine as needed for itching Follow up if no improvement documented in this encounterW[facility]08-05-2024 History of Present illness Narrative* Tiffanie Gillis APRN.CNP - 03/06/2024 2:20 PM EDT This is a 38 year old male who presents today with: Patient presents with: Acute Visit HISTORY OF PRESENT ILLNESS: Mayur Worthington is a 38 year old male. Patient presents with: Acute Visit Here in the office for rash to bilateral lower legs. Started 2 days ago, both legs started at the same time. Rash is very itchy. Refers that he has an allergy to the dye in his work boots, however these are the only boots that he can wear that are comfortable. Is standing for long periods of time at work. Rash has not spread, denies any difficulty breathing. PAST MEDICAL HISTORY: PAST MEDICAL HISTORY No date: ADD (attention deficit disorder) No date: Essential hypertension No date: Febrile convulsions (simple), unspecified No date: PMH - PAST MEDICAL HISTORY OF Comment: Color Vision - Normal No date: Routine or ritual circumcision PAST SURGICAL HISTORY No date: LX REPAIR RECURRENT VENTRAL HERNIA Comment: 04/2023 No date: TONSILLECTOMY & ADENOIDECTOMY <AGE 14 age 6 year: TYMPANOSTOMY LOCAL/TOPICAL ANESTHESIA ALLERGIES Elidel [Macrolide Immunosuppressant] and Pollen MEDICATIONS Current Outpatient Medications Medication Sig gel base no.41, bulk, (HYDROGEL) gel Apply to left great toe ulceration daily cyclobenzaprine (FLEXERIL) 10 mg tablet Take 1 tablet by mouth three times a day as needed for muscle spasm. keTORolac (TORADOL) 10 mg tablet Take 1 tablet by mouth every 6 hours as needed. lisdexamfetamine (VYVANSE) 70 mg capsule Take 1 capsule by mouth once daily for 30 days. olopatadine (PATANOL) 0.1 % ophthalmic solution USE 1-2 DROPS IN BOTH EYES TWICE DAILY sertraline (ZOLOFT) 100 mg tablet Take 1 tablet by mouth once daily. meloxicam (MOBIC) 15 mg tablet Take 1 tablet by mouth once daily. Take with food. triamcinolone acetonide (KENALOG) 0.1 % cream Apply 1 application to affected area two times a day.Apply to affected area. Location: inner legs fluticasone (FLONASE) 50 mcg/actuation nasal spray Use 2 Sprays in each nostril once daily. hydroCHLOROthiazide 12.5 mg capsule Take 1 capsule by mouth once daily. lisinopril (ZESTRIL) 10 mg tablet Take 1 tablet by mouth once daily. ondansetron orally disintegrating (ZOFRAN ODT) 4 mg disintegrating tablet Take 1 tablet by mouth every 6 hours as needed for nausea/vomiting. albuterol HFA (PROAIR HFA) 90 mcg/actuation inhaler Inhale 2 Puffs as instructed every 6 hours as needed. Clobetasol Propionate (TEMOVATE) 0.05 % external solution MIX 1 BOTTLE INTO A 1LB TUB OF CERAVE ANDAPPLY 1X DAILY TO ANY AREAS OF RASH YOU CAN SEE OR FEEL. No current facility-administered medications for this visit. FAMILY HISTORY Problem Relation Age of Onset other (heart failure [Other]) [facility] 49 Social History Tobacco Use Smoking status: Former Packs/day: 1 Types: Cigarettes Smokeless tobacco: Former Types: Chew Vaping Use Vaping Use: Former Substance Use Topics Alcohol use: No Drug use: Never REVIEW OF SYSTEMS GENERAL: No weight loss, malaise or fevers/chills HEENT: Negative for frequent or significant headaches, No changes in hearing or vision. NECK: Negative for lumps, goiter, pain and significant neck swelling RESPIRATORY: Negative for cough, hemoptysis, wheezing, dyspnea or shortness of breath CARDIOVASCULAR: Negative for chest pain, leg swelling, orthopnea, or palpitations GI: No nausea, vomiting, or diarrhea/constipation. No hematochezia/melena. No heartburn or reflux symptoms. : No history of dysuria, frequency or incontinence MUSCULOSKELETAL: Negative for joint pain or swelling. SKIN: + Rash lower legs bilaterally ENDOCRINE: Negative for cold or heat intolerance, polyuria, polydipsia and goiter NEURO: No history of headaches, syncope, paralysis, seizures or tremors MOOD: Negative for depression, anxiety, or suicidal ideation. EXAM: BP 160/100 Pulse 102 Resp 20 Wt (!) 188 kg (414 lb 7.4 oz) SpO2 96% BMI 53.21 kg/m PHYSICAL EXAM: General Appearance: Well appearing, alert, in no acute distress, well-hydrated, well nourished. Skin: + Various erythematic macules noted on shins bilaterally. No crusting or seeping. No edema. Head: Normocephalic, no masses, lesions, tenderness or abnormalities. Eyes: Anicteric sclera. Extraocular movements are intact. Lungs: Lungs clear to auscultation. No wheezing, rhonchi, rales. Heart: RRR without murmur, gallop, or rubs. No ectopy. Extremities: No deformities, edema, skin discoloration, clubbing or cyanosis. Good capillary refill. Peripheral Pulses: Normal, Capillary refill <2secs, strong peripheral pulses, Pulses palpable. Neurologic: Gait normal. Sensation grossly intact. ASSESSMENT/PLAN: 1. Dermatitis - ICD9: 692.9, ICD10: L30.9 (primary diagnosis) - Oral Steriod tx -Prednisone taper - Topical steriod tx with Rx for steriod cream/ointment- see orders - Anti itch therapy of antihistamines recommended prn - discussed skin care of rash - follow up if symptoms persist or worsen. - PREDNISONE 10 MG TABLET - TRIAMCINOLONE ACETONIDE 0.1 % TOPICAL CREAM 2. Essential hypertension - ICD9: 401.9, ICD10: I10 White Coat Syndrome - Continue current medications - Recommend home blood pressure monitoring, to bring results to next visit - Encouraged sodium restriction, DASH or Mediterranean diet - Recommend regular aerobic exercise - Discussed need for and benefit of weight loss. BMI 53.21 kg/(m^2) Follow-up if no improvement. Discussed treatment plan and patient voices understanding. Patient's questions answered appropriately. Medications and potential side effects were discussed and patient voices understanding. Tiffanie Gillis APRN.WALE This note was partially generated using Techulon voice recognition system. Note was reviewed for accuracy. There may be minor misspellings or grammar miscues with Tech[employer]on voice recognition. documented in this encounterW[facility]08-01-2024 History of Present illness Narrative* Rosie De Luna RN - 03/02/2024 2:[address] Cunningham, Mayur was provided with Powerstep Original Inserts, size 12-13 Mens, and instructed/educated in its application, wear, and care. All questions were answered, and patient was able to demonstrate competence with the necessary skills to utilize the above equipment. Rosie De Luna RN * Shivam Cunningham - 03/02/2024 1:36 PM EDT Images from the original note were not included. FOLLOW UP PODIATRIC OFFICE VISIT Chief Complaint: This 38 year old who presents for follow up:blister of left hallux Patient presents to clinic for evaluation of left hallux. Was seen back in July and had bllister and we were thinking could still be wart Was seen a few weeks later and the foot was healed. He states over the past few months, he has developed subsequent blister. Patient is currently treating with eczema cream. PAIN EVALUATION 03/02/2024 1331 Pain Level: 5 when walking Pain Location: Toe Duration Amount of Time: 2 Duration Units: Months Frequency: Intermittent Intervention/Comfort measure: Relaxation;Reposition No results found for: HBA1C PCP: Marvin Sheets MD PAST MEDICAL HISTORY No date: ADD (attention deficit disorder) No date: Essential hypertension No date: Febrile convulsions (simple), unspecified No date: PM - PAST MEDICAL HISTORY OF Comment: Color Vision - Normal No date: Routine or ritual circumcision Current Outpatient Medications Medication Sig cyclobenzaprine (FLEXERIL) 10 mg tablet Take 1 tablet by mouth three times a day as needed for muscle spasm. keTORolac (TORADOL) 10 mg tablet Take 1 tablet by mouth every 6 hours as needed. lisdexamfetamine (VYVANSE) 70 mg capsule Take 1 capsule by mouth once daily for 30 days. olopatadine (PATANOL) 0.1 % ophthalmic solution USE 1-2 DROPS IN BOTH EYES TWICE DAILY sertraline (ZOLOFT) 100 mg tablet Take 1 tablet by mouth once daily. meloxicam (MOBIC) 15 mg tablet Take 1 tablet by mouth once daily. Take with food. triamcinolone acetonide (KENALOG) 0.1 % cream Apply 1 application to affected area two times a day.Apply to affected area. Location: inner legs fluticasone (FLONASE) 50 mcg/actuation nasal spray Use 2 Sprays in each nostril once daily. hydroCHLOROthiazide 12.5 mg capsule Take 1 capsule by mouth once daily. lisinopril (ZESTRIL) 10 mg tablet Take 1 tablet by mouth once daily. ondansetron orally disintegrating (ZOFRAN ODT) 4 mg disintegrating tablet Take 1 tablet by mouth every 6 hours as needed for nausea/vomiting. albuterol HFA (PROAIR HFA) 90 mcg/actuation inhaler Inhale 2 Puffs as instructed every 6 hours as needed. Clobetasol Propionate (TEMOVATE) 0.05 % external solution MIX 1 BOTTLE INTO A 1LB TUB OF CERAVE ANDAPPLY 1X DAILY TO ANY AREAS OF RASH YOU CAN SEE OR FEEL. No current facility-administered medications for this visit. ALLERGIES Allergen Reactions Elidel [Macrolide I* Itching Burning and severe itching Pollen Cough PAST SURGICAL HISTORY No date: LX REPAIR RECURRENT VENTRAL HERNIA Comment: 04/2023 No date: TONSILLECTOMY & ADENOIDECTOMY <AGE 14 age 6 year: TYMPANOSTOMY LOCAL/TOPICAL ANESTHESIA Physical Exam: OBJECTIVE: Constitutional: Pt is a well developed 38 year old male who is alert, oriented, cooperative and in no apparent distress. Eyes: Following during examination. No redness or drainage. Respiratory: RR normal and nonlabored. Even breathing. No evidence of distress. Psychology: Patient is engaged during conversation. Normal affect and mood. Does not appear depressed or anxious. NVSI unchanged from previous visit. Dermatological: Hyperkeratotic lesion is noted to b/l hallux ipj and left medial heel. All lesions were debrided with 15 blade, he has fissure to left heel and he has 1 mm ulceration to left hallux ipj. No wounds toright hallux. Musculoskeletal/Orthopaedic: Patient has pain to palpation of plantar aspect of left hallux ASSESSMENT: (L97.229) Skin ulcer of toe, limited to breakdown of skin, unspecified laterality (HCC) (primary encounter diagnosis) (L84) Callus of foot PLAN: Discussed callus of left hallux ipj. Callus was reduced with 15 blade and tissue nippers. Upon debridement, he has very superficial 1mm ulceration. All nonviable tissue was debrided with tissue nippers. Will treat with hydrogel and recommended surgical shoe with offloading insert. Patient unable totake time off work so will treat with powerstep gel inserts and donut hole offloading. Discussed callus lesion of left hallux ipj. Certainly differential includes pre- ulcerative callus vs wart. I favor more callus/ulceration compared to wart. If lesion continues, could consider derm evaluation. Would try gel inserts and offloading. Callus reduced with right hallux and left heel with dremmel. Continue with lotion. F/u in 2 weeks Shivam Cunningham DPM * oRsie De Luna, RN - 03/02/2024 1:26 PM EDT AMB ROOMING INTAKE FLOWSHEET DATA Pain Pain Level: 5 (when walking) Pain Location: Toe Duration Amount of Time: 2 Duration Units: Months Frequency: Intermittent Intervention/Comfort measure: Relaxation, Reposition Patient presents with: Left Foot - New, Pain, Callous Right Foot - New, Callous Patient has dark callus to left big toe that started a month or 2 ago. States that he thought it was a wart then it turned into a possible blood blister. Large crack to left heel and under left big toe. Also has small spot to right big toe in the same spot. documented in this encounterW[facility]08-01-2024 Instructions* Patient Instructions* Shivam Cunningham - 03/02/2024 1:54 PM EDT Apply hydrogel to left hallux wound daily until healed Secure with band aide or guaze If toe gets real white (moist), then can go ahead and just use guaze Use powerstep insert with donut hole pad Powerstep Original Full length. Can purchase at [employer] and boots,shoes and more here in [place], [employer] in [place] or [place]. Also can find in [place] in [facility]. Powersteps can also be purchased online, starting around $45.00 If you have a metatarsal or dancer pad for your feet apply the pad directly to the insole so you can interchange between your shoes. Find a shoe with a removable insole and take this out and replace with your powerstep insole. Always bring powersteps with you when shopping for shoes so that you can make sure that everything fits well together documented in this encounterW[facility]07-26-2024 Instructions* Patient Instructions* Clemente Negro APRN.CNP - 02/25/2024 10:56 AM EDT Use flexeril as needed Stop meloxicam for the next 5 days while you are on Toradol Toradol injection given today. Clemente Negro APRN.WALE documented in this encounterWv[facility]07-26-2024 History of Present illness Narrative* Clemente Negro APRN.CNP - 02/25/2024 10:48 AM EDT Chief Complaint Patient presents with: Back Pain: X 5 days HPI Mayur Worthington is a 38 year old male who presents here today for Above Complaints. Here with complaints of back pain. Duration is 5 days approximately. Location is his lower back. Other accompanying symptoms include sciatica down bilateral legs. Hard time walking. States that he shifted the wrong way. No loss of bowel or bladder control. No loss of sensation in legs. Pain is intermittent, tries to find a comfortable position. Patient stating that he has had sciatica in the past. Prednisone sometimes causes his ADHD symptoms to worsen, overeat. He is on daily meloxicam. Past medical history, appointments, medications, allergies reviewed. EXAM: BP 146/88 Pulse 98 Resp 20 Wt (!) 184.6 kg (407 lb) SpO2 97% BMI 52.26 kg/m General Appearance: Well appearing, alert, in no acute distress, well-hydrated, well nourished. andObese. Back:no pain to palpation of vertebrae, reflexes are 2+ and symmetric, motor and sensory appear to be normal, gait is stiff, bilateral lower lumbar paraspinal tenderness on exam. Neurologic: Gait normal but stiff . Sensation grossly intact.. ASSESSMENT/PLAN: 1. Acute bilateral low back pain with bilateral sciatica - ICD9: 724.2, 724.3, ICD10: M54.42, M54.41 Sciatica, acute on chronic. Stop meloxicam for the next 5 days while on oral toradol. Use flexeril at night Toradol in office today Offered PHYSICAL THERAPY, patient will pursue if not improving - CYCLOBENZAPRINE 10 MG TABLET - KETOROLAC 60 MG/2 ML INTRAMUSCULAR SOLUTION - KETOROLAC 10 MG TABLET Clemente Negro APRN.CNP RTO as needed Medical Decision Making: Problems: Moderate: 1+ chronic illnesses with change Risk: Moderate: Drug management Medical Decision Making Level: 4 - Moderate This note was partly generated using [email or web address] voice recognition dictation and may contain some misspelled or inaccurate words missed on review. documented in this encounterWvumed[facility]07-23-2024 Telephone encounter Note * Telephone Encounter - Clemente Negro APRN.CNP - 02/22/2024 7:44 AM EDT [facility] All prescriptions have been APPROPRIATELY filled. No suspiciousactivity was identified. 02/22/2024 by Clemente Negro APRN.CNP The following approved medication requests have been transmitted electronically. Requested Prescriptions Signed Prescriptions Disp Refills lisdexamfetamine (VYVANSE) 70 mg capsule 30 capsule 0 Sig: Take 1 capsule by mouth once daily for 30 days. Authorizing Provider: CLEMENTE NEGRO APRN.CNP [facility]-23-[facility] Miscellaneous Notes* Telephone Encounter - Clemente Negro APRN.CNP - 02/22/2024 7:44 AM EDT [facility]. All prescriptions have been APPROPRIATELY filled. No suspiciousactivity was identified. 02/22/2024 by Clemente Negro APRN.CNP The following approved medication requests have been transmitted electronically. Requested Prescriptions Signed Prescriptions Disp Refills lisdexamfetamine (VYVANSE) 70 mg capsule 30 capsule 0 Sig: Take 1 capsule by mouth once daily for 30 days. Authorizing Provider: CLEMENTE NEGRO APRN.CNP * Telephone Encounter - Tabatha Palma LPN - 02/22/2024 7:11 AM EDT ANA-01/31/24 Labs-12/06/23 NOV-06/12/24 Tabatha Palma LPN documented in this encounterWvumedicine [facility]07-23-2024 Telephone encounter Note * Telephone Encounter - Tabatha Palma LPN - 02/22/2024 7:11 AM EDT ANA-01/31/24 Labs-12/06/23Jun-06/12/24 Tabatha Palma LPN [facility] History of Present illness Narrative* Clemente Negro 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 - 01/31/2024 9:07 AM EDT Chief Complaint Patient presents with: Toe Pain (Toe): LEFT big toe; callus, blister x 3 months HPI Mayur Worthington is a 38 year old male who presents here today for Above Complaints. Patient is here for complaint of toe pain. Location is the left foot first toe. Has had a callus/blister for many months. Previously saw podiatry in August [address]23 and it was healing[address] Dr. Cunningham had recommended seeing a mulcher operator, as he believed it might have a wart etiology to it. Patient stating that he also has a callus forming on his right foot first toe, medial side. He believes both arerubbing on his boot. He states that it is painful to walk. Has it covered with a Band-Aid. Denies any swelling of the foot, fevers, chills. Wearing open toe sandals today. Past medical history, appointments, medications, allergies reviewed. EXAM: BP 127/69 Pulse 94 Resp 18 Wt (!) 182.1 kg (401 lb 6.4 oz) SpO2 96% BMI 51.54 kg/m General Appearance: Well appearing, alert, in no acute distress, well-hydrated, well nourished.. Extremities: Right foot: Callus on first toe, medial side present. Left foot: Bandage removed by patient, there is a large wartlike structure, purple in color present on the first toe.. ASSESSMENT/PLAN: 1. Blister of toe, left, subsequent encounter - ICD9: V58.89, 917.2, ICD10: S90.425D -Discussed with patient that I have no treatment options for him today. He stated that he agreed. Ireferred him back to podiatry for evaluation of his right foot callus. I he also is an active patient with Dr. King, dermatology at [place]. He will call to make an appointment to further evaluatethe left toe blister. It does appear like a wart. - CONSULT TO DERMATOLOGY - CONSULT TO PODIATRY Clemente Negro APRN.CNP This note was partly generated using Techulon voice recognition dictation and may contain some misspelled or inaccurate words missed on review. documented in this encounterWvumedicine [facility]06-19-2024 Telephone encounter Note * Telephone Encounter - Tiffanie Gillis APRN.CNP - 01/19/2024 7:17 PM EDT The following approved medication requests have been transmitted electronically. Requested Prescriptions Signed Prescriptions Disp Refills lisdexamfetamine (VYVANSE) 70 mg capsule 30 capsule 0 Sig: Take 1 capsule by mouth once daily for 30 days. Authorizing Provider: TIFFANIE GILLIS APRN.CNP PDMP website checked and validated. All prescriptions have been APPROPRIATELY filled. No suspiciousactivity was identified. 01/19/2024 by Tiffanie Gillis APRN.CNP [facility]06-19-2024 Miscellaneous Notes* Telephone Encounter - Tiffanie Gillis APRN.CNP - 01/19/2024 7:17 PM EDT The following approved medication requests have been transmitted electronically. Requested Prescriptions Signed Prescriptions Disp Refills lisdexamfetamine (VYVANSE) 70 mg capsule 30 capsule 0 Sig: Take 1 capsule by mouth once daily for 30 days. Authorizing Provider: TIFFANIE GILLIS 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 PDMP website checked and validated. All prescriptions have been APPROPRIATELY filled. No suspiciousactivity was identified. 01/19/2024 by Tiffanie Gillis APRN.WALE * Telephone Encounter - Tabatha Palma LPN - 01/19/2024 12:52 PM EDT ANA-12/06/23 Labs-12/06/23Jun-06/12/24 Tabatha Palma LPN documented in this encounterW[facility] Telephone encounter Note * Telephone Encounter - Tabatha Palma LPN - 01/19/2024 12:52 PM EDT [facility]-12/06/23 Labs-12/06/23Jun-06/12/24 Tabatha Palma LPN [facility]06-10-2024 Telephone encounter Note* Telephone Encounter - Marvin Sheets MD - 01/10/2024 2:24 PM EDT OK to refill as ordered Marvin Sheets MD [facility]06-10-2024 Miscellaneous Notes* Telephone Encounter - Marvin Sheets MD - 01/10/2024 2:24 PM EDT OK to refill as ordered Marvin Sheets MD * Telephone Encounter - Tabatha Palma LPN - 01/10/2024 2:08 PM EDT ANA-12/06/23 Labs-12/06/23Jun-06/12/24 Tabatha Palma LPN documented in this encounterW[facility]06-10-[facility]24 Telephone encounter Note * Telephone Encounter - Tabatha Palma LPN - 01/10/2024 2:08 PM EDT ANA-12/06/23 Labs-12/06/23Jun-06/12/24 Tabatha Palma LPN [facility]05-30-2024 Telephone encounter Note* Telephone Encounter - Tiffanie Gillis APRN.CNP - 12/30/2023 7:24 AM EDT The following approved medication requests have been transmitted electronically. Requested Prescriptions Pending Prescriptions Disp Refills meloxicam (MOBIC) 15 mg tablet 30 tablet 5 Sig: Take 1 tablet by mouth once daily. Take with food. Tiffanie Gillis APRN.CNP [facility]05-30-2024 Miscellaneous Notes* Telephone Encounter - Tiffanie Gillis APRN.CNP - 12/30/2023 7:24 AM EDT The following approved medication requests have been transmitted electronically. Requested Prescriptions Pending Prescriptions Disp Refills meloxicam (MOBIC) 15 mg tablet 30 tablet 5 Sig: Take 1 tablet by mouth once daily. Take with food. Tiffanie Gillis APRN.CNP * Telephone Encounter - Tabatha Palma LPN - 12/30/2023 7:22 AM EDT ANA-12/06/23 Labs-12/06/23 NOV-06/12/24 Tabatha Palma LPN documented in this encounterW[facility]05-30-2024 Telephone encounter Note * Telephone Encounter - Tabatha Palma LPN - 12/30/2023 7:22 AM EDT ANA-12/06/23 Labs-12/06/23Jun-06/12/24 Tabatha Palma LPN [facility]05-23-2024 Telephone encounter Note* Telephone Encounter - Karon Briceño MA - 12/23/2023 8:53 AM EDT Notified of below via [employer]. Karon Briceño MA [facility]05-23-2024 Miscellaneous Notes* Telephone Encounter - Karon Briceño MA - 12/23/2023 8:53 AM EDT Notified of below via [employer]. Karon Briceño MA * Telephone Encounter - Marvin Sheets MD - 12/23/2023 8:11 AM EDT According to the chart he should have refills available. Marvin Sheets MD documented in this encounterWvumedicine [facility]05-23-2024 Telephone encounter Note * Telephone Encounter - Marvin Sheets MD - 12/23/2023 8:11 AM EDT According to the chart he should have refills available. Marvin Sheets MD [facility]05-06-2024 History of Present illness Narrative* Clemente NegroCURTIS.PRODUCT PROMOTER SALES PERSON - 12/06/2023 8:40 AM EDT Chief Complaint Patient presents with: F/U 6 Month HPI Mayur Worthington is a 38 year old male who presents here today for Chronic Medical Conditions. ADD: Current Treatment: Vyvnase 70 mg Feels treatment is working well: Yes. Weight loss: No. Insomnia: No. GASTROENTEROLOGY complaints: No. Tremor: No. Mood disorder: No. Chest pain/Palpitations: No. Aware of risks associated with controlled substance use: Yes. Hx of misuse/abuse/diversion of meds: No. Depression Screening PHQ-[address]-2 Total Score 12/06/2023 0 1 Depression screening tool completed and reviewed. Based on score and interview, patient is already diagnosed with depression. Screening tool discussed with patient, and I recommended continuing current plan of care. On zoloft, doing well. HTN: Taking medication as prescribed. No chest pain, shortness of breath or syncope. Believes he has poison luz on legs. Was out in the yard. Pruritus present. Past medical history, appointments, medications, allergies reviewed. EXAM: BP 138/93 Pulse 91 Resp 16 Wt (!) 181.3 kg (399 lb 9.6 oz) SpO2 98% BMI 51.31 kg/m General Appearance: Well appearing, alert, in no acute distress, well-hydrated, well nourished. andObese. Lungs: Lungs clear to auscultation. No wheezing, rhonchi, rales.. Heart: RRR without murmur, gallop, or rubs. No ectopy Skin: Inner calves, bilaterally, have a grouped pustular rash, erythema present. ASSESSMENT/PLAN: 1. Attention deficit hyperactivity disorder (ADHD), predominantly hyperactive type - ICD9: 314.01, ICD10: F90.1 (primary diagnosis) - Stable, continue as prescribed - LISDEXAMFETAMINE 70 MG CAPSULE - LISDEXAMFETAMINE 70 MG CAPSULE - LISDEXAMFETAMINE 70 MG CAPSULE 2. Essential hypertension - ICD9: 401.9, ICD10: I10 - Controlled - Continue current medications - Recommend home blood pressure monitoring, to bring results to next visit - Encouraged sodium restriction, DASH or Mediterranean diet - Recommend regular aerobic exercise 3. Current mild episode of major depressive disorder, unspecified whether recurrent (HCC) - ICD9: 296.21, ICD10: F32.0 - Stable on zoloft 4. Poison luz dermatitis - ICD9: 692.6, ICD10: L23.7 - Topical steriod tx with Rx for steriod cream/ointment- see orders - discussed skin care of rash - follow up if symptoms persist or worsen. - TRIAMCINOLONE ACETONIDE 0.1 % TOPICAL CREAM Clemente Negro APRN.WALE . RTO in 6 months, sooner if needed. Get CMP today This note was partly generated using Tech[employer] voice recognition dictation and may contain some misspelled or inaccurate words missed on review. documented in this encounterWvumed[facility]04-22-2024 History of Present illness Narrative* Rigo Horton MD - 11/22/2023 1:30 PM EDT Patient presents with: Cough: Cough, sinus and congestion x 2 weeks HPI: Feeling sick for 2 weeks. Positive symptoms: Cough, Chest tightness, Sinus pressure, Nasal Congestion, Rhinorrhea, Post nasaldrainage, dry throat Negative symptoms: Sore throat, Fever, body aches OTC: claritin, flonase, coricidin cold medicine Has spring allergies. PAST MEDICAL HISTORY Diagnosis Date ADD (attention deficit disorder) Essential hypertension Febrile convulsions (simple), unspecified PMH - PAST MEDICAL HISTORY OF Color Vision - Normal Routine or ritual circumcision MEDICATIONS: Current Outpatient Medications Medication Sig lisdexamfetamine (VYVANSE) 70 mg capsule Take 1 capsule by mouth once daily for 30 days. fluticasone (FLONASE) 50 mcg/actuation nasal spray Use 2 Sprays in each nostril once daily. hydroCHLOROthiazide 12.5 mg capsule Take 1 capsule by mouth once daily. benzonatate (TESSALON PERLES) 100 mg capsule Take 1 capsule by mouth three times a day as needed for cough. sertraline (ZOLOFT) 100 mg tablet Take 1 tablet by mouth once daily. lisinopril (ZESTRIL) 10 mg tablet Take 1 tablet by mouth once daily. meloxicam (MOBIC) 15 mg tablet TAKE 1 TABLET BY MOUTH ONCE DAILY. TAKE WITH FOOD. olopatadine (PATANOL) 0.1 % ophthalmic solution USE 1-2 DROPS IN BOTH EYES TWICE DAILY ondansetron orally disintegrating (ZOFRAN ODT) 4 mg disintegrating tablet Take 1 tablet by mouth every 6 hours as needed for nausea/vomiting. albuterol HFA (PROAIR HFA) 90 mcg/actuation inhaler Inhale 2 Puffs as instructed every 6 hours as needed. Clobetasol Propionate (TEMOVATE) 0.05 % external solution MIX 1 BOTTLE INTO A 1LB TUB OF CERAVE ANDAPPLY 1X DAILY TO ANY AREAS OF RASH YOU CAN SEE OR FEEL. lisdexamfetamine (VYVANSE) 70 mg capsule Take 1 capsule by mouth once daily for 30 days. lisdexamfetamine (VYVANSE) 70 mg capsule Take 1 capsule by mouth once daily for 30 days. lisdexamfetamine (VYVANSE) 70 mg capsule Take 1 capsule by mouth once daily for 30 days. No current facility-administered medications for this visit. ALLERGIES: ALLERGIES Allergen Reactions Elidel [Macrolide I* Itching Burning and severe itching Pollen Cough VITALS: BP 168/100 Pulse 94 Temp 36.8 C (98.3 F) (Tympanic) Resp 16 Wt (!) 181.9 kg (401 lb 0.3 oz) SpO2 97% BMI 51.49 kg/m PHYSICAL EXAM: GEN: mildly ill appearing HEENT: PERRL, EOMI, conjunctiva injected Ears: canals clear. TMs without erythema, bulge, or effusion Sinuses: non-tender frontal sinus, non-tender maxillary sinuses Throat: moist mucous membranes, mild erythema, no exudate Neck: supple, no thyromegaly, no lymphadenopathy HEART: regular rate and rhythm, no murmurs LUNGS: clear to auscultation, no wheezes or crackles, no increased WOB ASSESSMENT/PLAN: 1. Acute non-recurrent sinusitis, unspecified location - ICD9: 461.9, ICD10: J01.90 - Will begin treatment with oral steroid taper to treat seasonal allergies. Continue current flonase and claritin. - PREDNISONE 10 MG TABLET taper Add augmentin for secondary bacterial sinusitis if not improving. Rigo Horton MD documented in this encounterW[facility]04-15-2024 Miscellaneous Notes* Telephone Encounter - Clemente Negro APRN.CNP - 11/15/2023 10:22 AM EDT Approved. PDMP website checked and validated. All prescriptions have been APPROPRIATELY filled. No suspiciousactivity was identified. 11/15/2023 by Clemente Negro APRN.CNP The following approved medication requests have been transmitted electronically. Requested Prescriptions Signed Prescriptions Disp Refills lisdexamfetamine (VYVANSE) 70 mg capsule 30 capsule 0 Sig: Take 1 capsule by mouth once daily for 30 days. Authorizing Provider: CLEMENTE NEGRO APRN.CNP * Telephone Encounter - Karon Briceño MA - 11/15/2023 9:50 AM EDT Patient has been identified by name and date of : Yes, Provider Marvin Sheets MD Date November 15, 2023 Time 9:50 AM Patient phones for refill(s): Requested Prescriptions Pending Prescriptions Disp Refills lisdexamfetamine (VYVANSE) 70 mg capsule 30 capsule 0 Sig: Take 1 capsule by mouth once daily for 30 days. Date of last office visit in primary care: 09/10/2023 Date of next office visit in primary care: 12/06/2023 Vyvnase #30 on 10/15/23 Please advise. Thank you. Karon Briceño MA. documented in this encounterW[facility]04-02-2024 Miscellaneous Notes* Telephone Encounter - Clemente Negro APRN.CNP - 11/02/2023 10:39 AM EDT The following approved medication requests have been transmitted electronically. Requested Prescriptions Pending Prescriptions Disp Refills fluticasone (FLONASE) 50 mcg/actuation nasal spray 3 Each 3 Sig: Use 2 Sprays in each nostril once daily. Clemente Negro APRN.CNP * Telephone Encounter - Lupillo Desai LPN - 11/02/2023 10:38 AM EDT Patient has been identified by name and date of : Yes Patient phones for refill(s): Requested Prescriptions Pending Prescriptions Disp Refills fluticasone (FLONASE) 50 mcg/actuation nasal spray 3 Each 3 Sig: Use 2 Sprays in each nostril once daily. Date of last office visit in primary care: 09/10/2023 Date of next office visit in primary care: 12/06/2023 Please advise. Thank you. Lupillo Desai LPN. documented in this encounterW[facility]03-25-2024 Miscellaneous Notes* Telephone Encounter - Marvin Sheets MD - 10/25/2023 1:40 PM EDT OK to refill as ordered Marvin Sheets MD documented in this encounterWvumedicine [facility]03-15-2024 Miscellaneous Notes* Telephone Encounter - Clemente Negro APRN.CNP - 10/15/2023 2:12 PM EDT Approved. PDMP website checked and validated. All prescriptions have been APPROPRIATELY filled. No suspiciousactivity was identified. 10/15/2023 by Clemente Negro APRN.CNP The following approved medication requests have been transmitted electronically. Requested Prescriptions Signed Prescriptions Disp Refills lisdexamfetamine (VYVANSE) 70 mg capsule 30 capsule 0 Sig: Take 1 capsule by mouth once daily for 30 days. Authorizing Provider: CLEMENTE NEGRO 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 * Telephone Encounter - Tabatha Palma LPN - 10/15/2023 1:55 PM EDT ANA-09/10/23 Labs-06/07/23 NOV-12/06/23 Tabatha Palma LPN documented in this encounterW[facility]02-15-2024 Miscellaneous Notes* Telephone Encounter - Marvin Sheets MD - 09/16/2023 11:54 AM EST OK to refill as ordered Marvin Sheets MD * Telephone Encounter - Karon Briceño Ma - 09/16/2023 8:53 AM EST Patient has been identified by name and date of : Yes, Provider Marvin Sheets MD Date September 16, 2023 Time 8:53 AM Patient phones for refill(s): Requested Prescriptions Pending Prescriptions Disp Refills lisdexamfetamine (VYVANSE) 70 mg capsule 30 capsule 0 Sig: Take 1 capsule by mouth once daily for 30 days. Date of last office visit in primary care: 09/10/2023 Date of next office visit in primary care: 12/06/2023 Please advise. Thank you. Karon Briceño Ma. documented in this encounterWv[facility]12-18-2023 History of Present illness Narrative* Raquel Salas, RT(R) - 07/19/2023 12:30 PM EST Radiology Service Progress Note PATIENT NAME: Mayur Worthington DATE OF SERVICE: July 19, 2023 TIME: 12:31 PM PATIENT IDENTITY VERIFICATION COMPLETED USING TWO (2) IDENTIFIERS: Name and Date of confirmedby patient verbally. FALL SCREENING: Has the patient had 2 falls in the last year or 1 fall with injury or currently using an Ambulatory Assistive Device (Walker, Cane, Wheelchair, Crutches, etc.)? No PATIENT GENDER DATA: Male PATIENT RELEVANT IMPLANT DATA REVIEWED: Yes RADIOLOGY DEPARTMENT: General X-ray: Exam(s) Completed: Lower Extremity X- Ray(s): Toes, Left PERIPHERAL IV DATA: Not applicable SIGNED BY: RT Margot(R) July 19, 2023 12:31 PM documented in this encounterWvumedicine [facility]12-14-2023 Miscellaneous Notes* Telephone Encounter - Duncan Keith MD - 07/15/2023 2:25 PM EST PDMP website checked and validated. All prescriptions have been APPROPRIATELY filled. No suspiciousactivity was identified. 07/15/2023 by Duncan Keith MD * Telephone Encounter - Estefany Waldron - 07/15/2023 1:37 PM EST Patient has been identified by name and date of : Yes, Patient phones for refill(s): Requested Prescriptions Pending Prescriptions Disp Refills lisdexamfetamine (VYVANSE) 70 mg capsule 30 capsule 0 Sig: Take 1 capsule by mouth once daily for 30 days. Date of last office visit in primary care: 06/07/2023 Date of next office visit in primary care: 12/06/2023 Patient wants the medication sent to [facility] Was sent to [facility] documented in this encounterWvumedicine [facility]12-11-2023 Miscellaneous Notes* Telephone Encounter - Karon Briceño Ma - 07/12/2023 2:17 PM EST Vyvanse was sent to [facility] pharmacy in [place] on 07/07/23. Pt notified via [employer] to check with pharmacy. documented in this encounterWvumedicine [facility]11-13-2023 Miscellaneous Notes* Telephone Encounter - Clemente Negro APRN.CNP - 06/14/2023 12:01 PM EST Approved. PDMP website checked and validated. All prescriptions have been APPROPRIATELY filled. No suspiciousactivity was identified. 06/14/2023 by Clemente Negro APRN.CNP The following approved medication requests have been transmitted electronically. Requested Prescriptions Signed Prescriptions Disp Refills lisdexamfetamine (VYVANSE) 70 mg capsule 30 capsule 0 Sig: Take 1 capsule by mouth once daily for 30 days. Authorizing Provider: CLEMENTE NEGRO APRN.CNP * Telephone Encounter - Karon Briceño Ma - 06/14/2023 11:05 AM EST Pt asking for refill to go to [facility]. Looks like future refills were sent to [facility]. Karon Briceño Ma documented in this encounterWvumedicine [facility]11-08-2023 Miscellaneous Notes* Telephone Encounter - Rosie Quintero RN - 06/09/2023 11:47 AM EST Pt called and is notified of providers results and instructions. Pt voices understanding. Rosie Quintero RN * Telephone Encounter - Clemente Negro APRN.CNP - 06/09/2023 11:13 AM EST Please let the patient know that his cholesterol panel looks okay. His glucose is elevated and his liver enzymes are also elevated. I would like for him to get some additional blood work. It appears that his liver looks normal from his CT of the abdomen in April, related to his hernia. Possiblethat it is elevated related to his recent surgery. We can recheck his liver enzymes in 6 months. Clemente Negro APRN.CNP documented in this encounterWvumedicine [facility]11-07-2023 Miscellaneous Notes* Telephone Encounter - Clemente Negro APRN.CNP - 06/08/2023 3:10 PM EST The following approved medication requests have been transmitted electronically. Requested Prescriptions Pending Prescriptions Disp Refills lisinopril (ZESTRIL) 10 mg tablet 90 tablet 3 Sig: Take 1 tablet by mouth once daily. Clemente Negro APRN.CNP * Telephone Encounter - Tamera Bar LPN - 06/08/2023 3:07 PM EST Patient has been identified by name and date of : Yes Patient phones for refill(s): Requested Prescriptions Pending Prescriptions Disp Refills lisinopril (ZESTRIL) 10 mg tablet 90 tablet 3 Sig: Take 1 tablet by mouth once daily. Date of last office visit in primary care: 06/07/2023 Date of next office visit in primary care: 12/06/2023 Please advise. Thank you. Tamera Bar LPN. documented in this encounterWvumedicine [facility]11-07-2023 Miscellaneous Notes* Telephone Encounter - Amina Ivan Ma - 06/08/2023 10:03 AM EST Images from the original note were not included. PA approved will fax approval to pharmacy. Patient was notified through christina Ivan Ma * Telephone Encounter - Amina Ivan Ma - 06/08/2023 9:41 AM EST Received fax from pharmacy stating PA needed for vyvanse Prior Authorization has been completed online at [employer] for vyvanse, will await response. [id number] Please keep encounter open until final decision has been received and documented from insurance company. Amina Ivan MA documented in this encounterWvumedicine [facility]11-06-2023 History of Present illness Narrative* Clemente Negro APRN.CNP - 06/07/2023 9:00 AM EST Chief Complaint No chief complaint on file. IRENA Worthington is a 37 year old male who presents here today for Chronic Medical Conditions. Recovering from ventral hernia x2. ADD: Current Treatment: Vyvanse 70 mg Feels treatment is working well: Yes. Weight loss: No. Insomnia: No. GASTROENTEROLOGY complaints: No. Tremor: No. Mood disorder: No. Chest pain/Palpitations: No. Aware of risks associated with controlled substance use: Yes. Hx of misuse/abuse/diversion of meds: No. HTN: Patient is compliant with meds Yes Monitors bp at home: yes, normal at home. Denies side effects: Yes. Chest pain: No. Dyspnea: No. Edema: No. Palpitations: No. Syncope: No. Headache: No. Dizziness: No. Past medical history, appointments, medications, allergies reviewed. EXAM: BP 134/88 Pulse 100 Resp 18 Wt (!) 175.3 kg (386 lb 6.4 oz) SpO2 95% BMI 49.61 kg/m General Appearance: Well appearing, alert, in no acute distress, well-hydrated, well nourished.. Lungs: Lungs clear to auscultation. No wheezing, rhonchi, rales.. Heart: RRR without murmur, gallop, or rubs. No ectopy. Abdomen: Normal abdominal exam, Abdomen soft, non-tender. Bowel sounds normal. No masses, organomegaly. ASSESSMENT/PLAN: 1. Essential hypertension - ICD9: 401.9, ICD10: I10 (primary diagnosis) - Controlled - Continue current medications - Recommend home blood pressure monitoring, to bring results to next visit - Encouraged sodium restriction, DASH or Mediterranean diet - Recommend regular aerobic exercise 2. Chronic bilateral low back pain with bilateral sciatica - ICD9: 724.2, 724.3, 338.29, ICD10: M54.42, M54.41, G89.29 Mechanical low back pain -continue meloxicam 3. Attention deficit hyperactivity disorder (ADHD), predominantly hyperactive type - ICD9: 314.01, ICD10: F90.1 - Stable, continue Vyvanse as prescribed - LISDEXAMFETAMINE 70 MG CAPSULE - LISDEXAMFETAMINE 70 MG CAPSULE - LISDEXAMFETAMINE 70 MG CAPSULE Clemente Negro APRN.CNP RTO in 6 months, sooner if needed. This note was partly generated using Tech[employer]on voice recognition dictation and may contain some misspelled or inaccurate words missed on review. documented in this encounterWvumedicine [facility]11-06-2023 Instructions* Patient Instructions* Clemente Negro APRN.CNP - 06/07/2023 8:57 AM EST Medications refilled. Get blood work completed. Clemente Negro APRN.CNP documented in this encounterWvumedicine [facility]09-25-2023 Progress note Author Bandar Saxena [facility] April 26, 2023 2:24pm Note Date/Time April 26, 2023 2:24pm [facility] Medical Records Department [facility] [place] [address] Progress Note - Hospitalist 04/26/23 0741 MR#: [id number] Acct: [id number] Name: MAYUR WORTHINGTON Rep #:[id number] : 1985 37 From: Bandar Aranda PCP: Dr. Marvin Sheets MD Status:AD M IN Location: [facility] EB943-8 Reason for Visit Reason for Visit: Diagnoses Unspecified intestinal obstruction, unspecified as to partial versus complete obstruction (04/21/23) Nausea with vomiting, unspecified (04/21/23) Postprocedural fever (04/21/23) Personal history of other diseases of the digestive system (04/21/23) Other specified postprocedural states (04/21/23) Objective Data Objective Data Vital Signs: Vital Signs Temp Pulse Resp BP Pulse Ox O2 Del Method O2 Flow Rate 98.9 F 81 18 129/70 H 97 Room Air 97 04/26/23 04:00 04/26/23 04:00 04/26/23 04:00 04/26/23 04:00 04/26/23 04:00 04/26/23 04:00 04/25/23 07:57 Oxygen Flow Rate (L/min) 97 Oxygen Delivery Method Room Air Weight: 316 lb 12.868 oz Body Mass Index (BMI) 40.6 Intake & Output: Intake and Output for Last 24 Hours 04/24/23 04/25/23 04/26/23 23:59 23:59 23:59 Intake Total 320 / 320 100 / 200 1933.33 / 1933.33 Balance 320 / 320 100 / 200 1933.33 / 1933.33 Lab / Micro Data 04/26/23 06:00 04/26/23 06:00 Labs: Laboratory Results - last 24 hr 04/25/23 17:45: Sodium 136, Potassium 3.4 L, Chloride 105, Carbon Dioxide 23.0, Anion Gap 8, BUN 11, Creatinine 0.63 L, Estim Creat Clear Calc 190.28, Est GFR (MDRD) Af Amer 185, Est GFR (MDRD) Non-Af 153, BUN/Creatinine Ratio 17.4, Glucose 100, Calcium 8.1 L, Phosphorus 3.9, Magnesium 2.4 04/26/23 06:00: WBC 12.6 H, RBC 4.86, Hgb 12.7 L, Hct 39.9 L, MCV 82.1, MCH 26.1L, MCHC 31.8 L, RDW Std Deviation 44.5 H, RDW Coeff of Kiet 14.8 H, Plt Count 201, MPV 10.6, Immature Gran % (Auto) 1.500 H, Neut % (Auto) 77.4 H, Lymph % (Auto) 11.4 L, [place] % (Auto) 6.7, Eos % (Auto) 2.5, Baso % (Auto) 0.5, Absolute Neuts (auto) 9.8 H, Absolute Lymphs (auto) 1.44, Nucleated RBC % 0, Sodium 141, Potassium 3.4 L, Chloride 107, Carbon Dioxide 30.0, Anion Gap 4 L, BUN 11, Creatinine 0.85, Estim Creat Clear Calc 141.03, Est GFR (MDRD) Af Amer 131, Est GFR (MDRD) Non-Af 108, BUN/Creatinine Ratio 12.9, Glucose 102, Calcium 8.1 L, Magnesium 2.3 Micro: Microbiology 04/22/23 04:55 Blood Culture (Wb) - Right Forearm Blood Culture - Preliminary No growth in 48 hours. 04/22/23 04:40 Blood Culture (Wb) - Left Hand Blood Culture - Preliminary No growth in 48 hours. Radiography Diagnostic Testing: Radiology Impression KUB X-Ray 04/25/23 16:00 IMPRESSION: Moderate small bowel obstruction. Electronically Signed: Jose Choudhury MD at 19:28 EDT , Physical Exam Narrative Seen and examined. Patient had vomiting last night. Patient is moving bowel. Abdominal distention has improved but sometimes feels bloating.Was on regular diet but made n.p.o. for barium follow-through. No fever. Patient stated recently had umbilical hernia repair surgery. Physical exam General: Alert, Oriented x3, Cooperative, morbid is a BMI 40.7 KG per square meter. HEENT: Atraumatic, PERRLA, EOMI, Normocephalic Oral: Oral mucosa moist. No Gingival or Mucosal Lesions/ Ulcerations Neck: Supple, No JVD, Negative Carotid Bruits Lungs: Air entry diminished in bilateral lung bases. No crepitation/rhonchi Cardiovascular: Regular rate, Regular Rhythm, Normal S1, Normal S2, No murmurs Abdomen: Bowel Sounds present. Soft, mild tenderness. Dressing is dry. No distention. : No renal angle tenderness. No suprapubic tenderness. Extremities: No edema, Capillary Refill Less than 3 Seconds Skin: Surgical wound in the abdomen. Small. No discharge. Musculoskeletal: No Tenderness to Palpation of Joints or Extremities Neurological: Cranial nerves II-XII grossly intact, DTR 2+/4. No acute focal neurological deficit. Psych/Mental Status: Normal Affect, Appropriate. Assessment & Plan Assessment/Plan (1) Postoperative fever: PLAN: Plan Patient is a 37-year-old male with history of morbid obesity, anxiety/depression, hypertension who was recently hospitalized from 04/17 through04/20 for an incarcerated ventral hernia. S/p laparoscopic ventral hernia repairwith mesh on 04/[address] Genao. Patient tolerated the procedure well andwas discharged home on 04/20. Re-presented to the emergency department on 04/21 with worsening abdominal pain as well as nausea and vomiting. CT abdomen pelvisshowed a possible small bowel obstruction as well as possible free air in the abdomen. S/p exploratory laparoscopy with small bowel resection with Dr. Genao on 04/21. No procedural complications, was transferred to [facility] postoperatively without issue. Patient developed a fever of 102F and had worsening sinus tachycardia overnight on 04/22, medicine consulted for further evaluation. 1. Postoperative fever with worsening sinus tachycardia: Patient had CTPA done which did not show any PE. CT abdomen also did not show leak or abscess therefore continue antibiotic. Tmax 103.2 Fahrenheit. Aggressive incentive spirometry. EKG showed sinus tachycardia, known RBBB, no acute ST changes. Chest x-ray was nonacute. Symptomatic management for fever. Continue IV Zosyn. 04/23: Patient had several bowel movements. NG tube was removed yesterday. Patient did not had high grade temperature. Patient is being discharged from surgical service. Antibiotics discontinued. Leukocytosis improving 04/24: No fever. Patient did not had fever off antibiotic. Leukocytosis resolved. 04/25: Fever resolved, no fever for past 48 hours off antibiotics. 04/26: Patient had bradycardia and will follow through. Results pending. Clinically patient is moving bowel but complains of mild protein on regular diet. Patient had vomiting last night. 2. Ventral hernia repair complicated by small bowel obstruction ? General surgery primary. S/p procedures on 04/19 and 04/21 as noted above. NG tube in place, patient NPO. Defer to general surgery for further management. Restart home p.o. medications as able. 04/24: Diet advanced to full liquid if tolerated further advanced to soft diet. Patient has small gaping upper surgical wound. Packing was removed by the surgeon. Discharge instructions and follow-up as per surgeon. 04/25 Chronic medical conditions: ? Anxiety/depression: On home sertraline 100 mg daily. Last dose received on 04/20. Restart as able. ? Hypertension: Discontinue HCTZ as patient on IV fluid and has hypokalemia. Blood pressure is normal. DVT prophylaxis: SCDs CODE STATUS: Full code, unverified Clinical Impression(s) from Imaging Studies Abdomen/Pelvis CT 04/21/23 02:47 IMPRESSION: Small bowel obstruction as above with pneumatosis. Bowel ischemia is not excluded. Extensive soft tissue gas of the left anterior abdominal wall, which appears to remain extraperitoneal, although of uncertain source. (Additional history provided, patient is postoperative from recent hernia repair, likely accounting for abdominal wall gas. Wednesday pt had hernia sx with mesh, released yesterday and today unable to keep food down with pain). Critical finding results discussed with Dr. Lynn at 0352 hours eastern time 04/21/2023. However, there is rounded gas containing rim enhancing umbilical 4 cm fluid collection, which may represent abscess versus seroma in this postoperative patient. Inflammatory change extends to the underlying anterior mesentery. Dense patchy left lower lobe airspace disease, to include pneumonia. N.B. : The above Results were Read Back by Tejas Mcdermott MD to Rj Lynn MD, and understanding confirmed on 04/21/2023 03:53:58 (ET). Electronically Signed: Tejas Mcdermott MD at 3:59 EDT , ADDENDUM: 04/21/23 0406 IMPRESSION: Small bowel obstruction as above with pneumatosis. Bowel ischemia is not excluded. Extensive soft tissue gas of the left anterior abdominal wall, which appears to remain extraperitoneal, although of uncertain source. (Additional history provided, patient is postoperative from recent hernia repair, likely accounting for abdominal wall gas. Wednesday pt had hernia sx with mesh, released yesterday and today unable to keep food down with pain). Critical finding results discussed with Dr. Lynn at 0352 hours eastern time 04/21/2023. However, there is rounded gas containing rim enhancing umbilical 4 cm fluid collection, which may represent abscess versus seroma in this postoperative patient. Inflammatory change extends to the underlying anterior mesentery. Dense patchy left lower lobe airspace disease, to include pneumonia. N.B. : The above Results were Read Back by Tejas Mcdermott MD to Rj Lynn MD, and understanding confirmed on 04/21/2023 03:53:58 (ET). Electronically Signed: Tejas Mcdermott MD at 3:59 EDT , KUB X-Ray 04/21/23 05:12 IMPRESSION: Enteric tube tip coils over left upper quadrant gastric lucency, likely proximal stomach. Again noted left lung base airspace disease. Partially imaged dilated small bowel loops, consistent with known bowel obstruction. Electronically Signed: Tejas Mcdermott MD at 7:17 EDT , Chest X-Ray 04/22/23 01:23 IMPRESSION: No evidence of cardiopulmonary disease. Electronically Signed: Олег Engel DO at 2:10 EDT , KUB X-Ray 04/22/23 05:55 IMPRESSION: Small bowel obstruction. Electronically Signed: Олег Engel DO at 6:02 EDT , Chest/Abdomen/Pelvis CTA 04/22/23 06:19 IMPRESSION: 1. Dilated small bowel loops measuring up to 4.4 cm in diameter with air-fluid levels and thickened enhancing zhao with mild adjacent fat stranding. Findings may represent small bowel obstruction with the transition point at the anastomosis in the mid lower abdomen. Enteritis is difficult to exclude. 2. No evidence of an intra-abdominal abscess. 4.0 cm fluid collection in the anterior supraumbilical abdominal wall may represent a seroma or hematoma with a developing abscess difficult to exclude. No rim enhancement to suggest abscess at this time. 3. Left basilar atelectasis versus infiltrates. 4. Fatty infiltration of the liver. Charges/Coding Visit Charges Inpatient E&M: 88228 Subs Hosp L2 04/26/23 1424 <Electronically signed by Bandar Saxena MD> Cosigner Signature (if applicable): CC: ~ Signed [facility] Work Phone: 1(325) 798-929309-24-2023 Progress note Author Gabe Badillo [facility] April 25, 2023 2:11pm Note Date/Time April 25, 2023 11:26am [facility] Medical Records Department [address] [place] [address] Progress Note - Surgery 04/25/23 1125 MR#: [id number] Acct: [id number] Name: MAYUR WORTHINGTON Rep #:[id number] : 1985 37 From: Gabe Aranda PCP: Dr. Marvin Sheets MD Status:AD M IN Location: [place] [address]-1 Subjective Subjective Patient seen and examined during AM rounds. He is found sleeping on my arrival to the room. He states that he had difficult overnight course because he was unable to rest?having slept too much yesterday. He denies any abdominal pain and states that his abdomen feels great. He denies any nausea in response to his full liquid diet yesterday. Objective Data Objective Data Vital Signs: Vital Signs Temp Pulse Resp BP Pulse Ox O2 Del Method O2 Flow Rate 97.7 F L 90 18 121/63 H 98 Room Air 97 04/25/23 09:06 04/25/23 09:06 04/25/23 09:06 04/25/23 09:06 04/25/23 09:06 04/25/23 09:06 04/25/23 07:57 Oxygen Flow Rate (L/min) 97 Oxygen Delivery Method Room Air Weight: 316 lb 12.868 oz Body Mass Index (BMI) 40.6 Intake & Output: Intake and Output for Last 24 Hours 04/23/23 04/24/23 04/25/23 23:59 23:59 23:59 Intake Total 3427.25 / 3427.25 320 / 320 Balance 3427.25 / 3427.25 320 / 320 Lab / Micro Data 04/24/23 05:51 04/24/23 05:51 Micro: Microbiology 04/22/23 04:55 Blood Culture (Wb) - Right Forearm Blood Culture - Preliminary No growth in 48 hours. 04/22/23 04:40 Blood Culture (Wb) - Left Hand Blood Culture - Preliminary No growth in 48 hours. Physical Exam Const oriented x3 and no apparent distress Resp normal respiratory effort GI GI Narrative: Minimally distended, drainage from upper midline incision appears to have stopped and is merely dried in the gauze dressing. When this is pulled there isno further evidence of drainage. There is no erythema about this incision or any of the others. Patient denies tenderness with palpation x4 quadrants. Assessment & Plan Assessment/Plan (1) Small bowel obstruction: PLAN: Patient is postoperative day 4 and 6 from his small bowel resection and umbilical hernia repair, respectively. He is comfortable today and denies any discomfort during his abdominal exam. He also has tolerated a full liquid diet without difficulty. I have encouraged him to shower today to get some of the crusted drainage off of his abdominal wounds and we will further advance him to a transitional diet. If these things are done without issue, will plan for discharge to home later today. Plan has also been discussed with consulting hospitalist. We will continue a short course of enoxaparin upon discharge for postoperative prophylaxis. Charges/Coding Visit Charges Inpatient E&M: 34245 Subs Hosp L2 04/25/23 1411 <Electronically signed by Gabe Badillo MD> Cosigner Signature (if applicable): CC: ~ Signed [facility] Work Phone: 1(535) 566-871809-24-2023 Progress note Author Bandar Saxena [facility] April 25, 2023 2:10pm Note Date/Time April 25, 2023 2:10pm [facility] Medical Records Department [address] [place] [address] Progress Note - Hospitalist 04/25/23 1056 MR#: [id number] Acct: [id number] Name: MAYUR WORTHINGTON Rep #:[id number] : 1985 37 From: Bandar Aranda PCP: Dr. Marvin Sheets MD Status:AD M IN Location: [place] [address] Reason for Visit Reason for Visit: Diagnoses Unspecified intestinal obstruction, unspecified as to partial versus complete obstruction (04/21/23) Nausea with vomiting, unspecified (04/21/23) Postprocedural fever (04/21/23) Personal history of other diseases of the digestive system (04/21/23) Other specified postprocedural states (04/21/23) Objective Data Objective Data Vital Signs: Vital Signs Temp Pulse Resp BP Pulse Ox O2 Del Method O2 Flow Rate 97.7 F L 90 18 121/63 H 98 Room Air 97 04/25/23 09:06 04/25/23 09:06 04/25/23 09:06 04/25/23 09:06 04/25/23 09:06 04/25/23 09:06 04/25/23 07:57 Oxygen Flow Rate (L/min) 97 Oxygen Delivery Method Room Air Weight: 316 lb 12.868 oz Body Mass Index (BMI) 40.6 Intake & Output: Intake and Output for Last 24 Hours 04/23/23 04/24/23 04/25/23 23:59 23:59 23:59 Intake Total 3427.25 / 3427.25 320 / 320 Balance 3427.25 / 3427.25 320 / 320 Lab / Micro Data 04/24/23 05:51 04/24/23 05:51 Micro: Microbiology 04/22/23 04:55 Blood Culture (Wb) - Right Forearm Blood Culture - Preliminary No growth in 48 hours. 04/22/23 04:40 Blood Culture (Wb) - Left Hand Blood Culture - Preliminary No growth in 48 hours. Physical Exam Narrative Seen and examined. Patient had flatus and several bowel movements. Abdominal distention has improved. Patient on soft diet advanced to regular diet. Advised to avoid hardand chewy meat. No fever. Patient stated recently had umbilical hernia repair surgery. Physical exam General: Alert, Oriented x3, Cooperative, morbid is a BMI 40.7 KG per square meter. HEENT: Atraumatic, PERRLA, EOMI, Normocephalic Oral: Oral mucosa moist. No Gingival or Mucosal Lesions/ Ulcerations Neck: Supple, No JVD, Negative Carotid Bruits Lungs: Air entry diminished in bilateral lung bases. No crepitation/rhonchi Cardiovascular: Regular rate, Regular Rhythm, Normal S1, Normal S2, No murmurs Abdomen: Bowel Sounds present. Soft, mild tenderness. Dressing is dry. No distention. : No renal angle tenderness. No suprapubic tenderness. Extremities: No edema, Capillary Refill Less than 3 Seconds Skin: Surgical wound in the abdomen. Small. No discharge. Musculoskeletal: No Tenderness to Palpation of Joints or Extremities Neurological: Cranial nerves II-XII grossly intact, DTR 2+/4. No acute focal neurological deficit. Psych/Mental Status: Normal Affect, Appropriate. Assessment & Plan Assessment/Plan (1) Postoperative fever: PLAN: Plan Patient is a 37-year-old male with history of morbid obesity, anxiety/depression, hypertension who was recently hospitalized from 04/17 through 04/20 for an incarcerated ventral hernia. S/p laparoscopic ventral hernia repairwith mesh on 04/[address] Genao. Patient tolerated the procedure well andwas discharged home on 04/20. Re-presented to the emergency department on 04/21 with worsening abdominal pain as well as nausea and vomiting. CT abdomen pelvisshowed a possible small bowel obstruction as well as possible free air in the abdomen. S/p exploratory laparoscopy with small bowel resection with Dr. Genao on 04/21. No procedural complications, was transferred to [facility] floor postoperatively without issue. Patient developed a fever of 102F and had worsening sinus tachycardia overnight on 04/22, medicine consulted for further evaluation. 1. Postoperative fever with worsening sinus tachycardia: Patient had CTPA done which did not show any PE. CT abdomen also did not show leak or abscess therefore continue antibiotic. Tmax 103.2 Fahrenheit. Aggressive incentive spirometry. EKG showed sinus tachycardia, known RBBB, no acute ST changes. Chest x-ray was nonacute. Symptomatic management for fever. Continue IV Zosyn. 04/23: Patient had several bowel movements. NG tube was removed yesterday. Patient did not had high grade temperature. Patient is being discharged from surgical service. Antibiotics discontinued. Leukocytosis improving 04/24: No fever. Patient did not had fever off antibiotic. Leukocytosis resolved. 04/25: Fever resolved, no fever for past 48 hours off antibiotics. 2. Ventral hernia repair complicated by small bowel obstruction ? General surgery primary. S/p procedures on 04/19 and 04/21 as noted above. NG tube in place, patient NPO. Defer to general surgery for further management. Restart home p.o. medications as able. 04/24: Diet advanced to full liquid if tolerated further advanced to soft diet. Patient has small gaping upper surgical wound. Packing was removed by the surgeon. Discharge instructions and follow-up as per surgeon. Chronic medical conditions: ? Anxiety/depression: On home sertraline 100 mg daily. Last dose received on 04/20. Restart as able. ? Hypertension: Discontinue HCTZ as patient on IV fluid and has hypokalemia. Blood pressure is normal. DVT prophylaxis: SCDs CODE STATUS: Full code, unverified Clinical Impression(s) from Imaging Studies Abdomen/Pelvis CT 04/21/23 02:47 IMPRESSION: Small bowel obstruction as above with pneumatosis. Bowel ischemia is not excluded. Extensive soft tissue gas of the left anterior abdominal wall, which appears to remain extraperitoneal, although of uncertain source. (Additional history provided, patient is postoperative from recent hernia repair, likely accounting for abdominal wall gas. Wednesday pt had hernia sx with mesh, released yesterday and today unable to keep food down with pain). Critical finding results discussed with Dr. Lynn at 0352 hours eastern time 04/21/2023. However, there is rounded gas containing rim enhancing umbilical 4 cm fluid collection, which may represent abscess versus seroma in this postoperative patient. Inflammatory change extends to the underlying anterior mesentery. Dense patchy left lower lobe airspace disease, to include pneumonia. N.B. : The above Results were Read Back by Tejas Mcdermott MD to Rj Lynn MD, and understanding confirmed on 04/21/2023 03:53:58 (ET). Electronically Signed: Tejas Mcdermott MD at 3:59 EDT , ADDENDUM: 04/21/23 0406 IMPRESSION: Small bowel obstruction as above with pneumatosis. Bowel ischemia is not excluded. Extensive soft tissue gas of the left anterior abdominal wall, which appears to remain extraperitoneal, although of uncertain source. (Additional history provided, patient is postoperative from recent hernia repair, likely accounting for abdominal wall gas. Jaren pt had hernia sx with mesh, released yesterday and today unable to keep food down with pain). Critical finding results discussed with Dr. Lynn at 0352 hours eastern time 04/21/2023. However, there is rounded gas containing rim enhancing umbilical 4 cm fluid collection, which may represent abscess versus seroma in this postoperative patient. Inflammatory change extends to the underlying anterior mesentery. Dense patchy left lower lobe airspace disease, to include pneumonia. N.B. : The above Results were Read Back by Tejas Mcdermott MD to Rj Lynn MD, and understanding confirmed on 04/21/2023 03:53:58 (ET). Electronically Signed: Tejas Mcdermott MD at 3:59 EDT , KUB X-Ray 04/21/23 05:12 IMPRESSION: Enteric tube tip coils over left upper quadrant gastric lucency, likely proximal stomach. Again noted left lung base airspace disease. Partially imaged dilated small bowel loops, consistent with known bowel obstruction. Electronically Signed: Tejas Mcdermott MD at 7:17 EDT , Chest X-Ray 04/22/23 01:23 IMPRESSION: No evidence of cardiopulmonary disease. Electronically Signed: Олег Engel DO at 2:10 EDT , KUB X-Ray 04/22/23 05:55 IMPRESSION: Small bowel obstruction. Electronically Signed: Олег Engel DO at 6:02 EDT , Chest/Abdomen/Pelvis CTA 04/22/23 06:19 IMPRESSION: 1. Dilated small bowel loops measuring up to 4.4 cm in diameter with air-fluid levels and thickened enhancing zhao with mild adjacent fat stranding. Findings may represent small bowel obstruction with the transition point at the anastomosis in the mid lower abdomen. Enteritis is difficult to exclude. 2. No evidence of an intra-abdominal abscess. 4.0 cm fluid collection in the anterior supraumbilical abdominal wall may represent a seroma or hematoma with a developing abscess difficult to exclude. No rim enhancement to suggest abscess at this time. 3. Left basilar atelectasis versus infiltrates. 4. Fatty infiltration of the liver. Charges/Coding Visit Charges Inpatient E&M: 78312 Subs Hosp L2 04/25/23 1410 <Electronically signed by Bandar Saxena MD> Cosigner Signature (if applicable): CC: ~ Signed [facility] Work Phone: 1(107) 172-497409-24-2023 Discharge summary Author Gabe Badillo [facility] April 25, 2023 11:25am Note Date/Time April 25, 2023 11:23am [facility] Medical Records Department [address] [place] [address] Instructions for Home/Discharge Instructions 04/25/23 1122 MR#: [id number] Acct: [id number] Name: MAYUR WORTHINGTON Rep #:[id number] : 1985 37 From: Gabe Aranda PCP: Dr. Marvin Sheets MD Status:AD M IN Discharge Instructions Diet Discharge Diet: Light diet - advance as tolerated Activity Discharge Activity: May Shower Lifting Restrictions: Avoid lifting more than 15 pounds for 4 weeks postoperatively Dressing / Incision Call your doctor if your incision/area has: Continuous Slow Oozing, Sudden Increased Bleeding, Increased Pain/ Swelling, Increased Redness, Foul Smelling Discharge and Swelling at the incision site Call your doctor if you observe: Fever of 101 or Higher, Inability to urinate and Inability to have a bowel movement Cleanse incision/area with: Soap & Water Additional Dressing/Incision Instructions:: Please leave Steri-Strips intact until they fall off spontaneously or are taken off at your follow-up visit Follow Up Care Please Follow Up With: Tejas Genao MD Test Results: Test results from this visit will be discussed in further detail at your follow- up appointment, if applicable. Discharge Plan Admission Admit Date/Time: 04/21/23 06:14 Primary Reason for Your Visit: Postoperative small bowel obstruction requiring reoperation Attending Provider: Tejas Genao Primary Care Provider: Marvin Sheets Consulting Providers: Bandar Saxena; Everton Faulkner Discharge Orders/Prescriptions Prescriptions: New enoxaparin 40 mg/0.4 mL Syringe 40 mg subcut DAILY 5 Days Qty: 2 0RF Continued lisdexamfetamine [Vyvanse] 70 MG capsule 70 mg PO DAILY meloxicam 15 mg tablet 15 mg PO DAILY Patient Comments: TAKE 1 TABLET BY MOUTH ONCE DAILY. TAKE WITH FOOD. sertraline 100 mg tablet 100 mg PO DAILY lisinopril 10 mg tablet 10 mg PO DAILY Patient Comments: TAKE 1 TABLET BY MOUTH EVERY DAY hydrochlorothiazide 12.5 mg capsule 12.5 mg PO DAILY albuterol sulfate 90 mcg/actuation HFA aerosol inhaler 2 puff INHALATION Q4H PRN (Reason: shortness of breath) Patient Comments: INHALE 2 PUFFS BY MOUTH EVERY 6 HOURS NEEDED DIRECTED fluticasone propionate 50 mcg/actuation spray,suspension 2 spray INTRANASAL DAILY Patient Comments: SPRAY 2 SPRAYS INTO EACH NOSTRIL EVERY DAY omeprazole 20 mg capsule,delayed release(DR/EC) 20 mg PO DAILY cetirizine [24Hour Allergy] 10 mg tablet 10 mg PO DAILY docusate sodium 100 mg Capsule 100 mg PO BID 14 Days Qty: 28 0RF oxycodone 5 mg Tablet 5 mg PO Q6H PRN PRN (Reason: Pain Score 4-10) 10 Days Qty: 30 0RF Referrals / Follow Up: Marvin Sheets MD [Primary Care Provider] - Disposition Disposition (needs filled in before D/C Order can be placed): Home, Self Care 04/25/23 1125<Electronically signed by Gabe Badillo MD>Gabe Badillo MD CC: Dr. Everton Faulkner DO; Dr. Marvin Sheets MD; Dr. Bandar Saxena MD~ Signed [facility] Work Phone: 1(536) 985-960009-23-2023 Progress note Author Bandar Saxena [facility] April 24, 2023 4:08pm Note Date/Time April 24, 2023 4:09pm [facility] Medical Records Department [address] [place] [address] Progress Note - Hospitalist 04/24/23 1606 MR#: [id number] Acct: [id number] Name: MAYUR WORTHINGTON Rep #:[id number] : 1985 37 From: Bandar Aranda PCP: Dr. Marvin Sheets MD Status:AD M IN Location: [place] [address] Reason for Visit Reason for Visit: Diagnoses Unspecified intestinal obstruction, unspecified as to partial versus complete obstruction (04/21/23) Nausea with vomiting, unspecified (04/21/23) Postprocedural fever (04/21/23) Personal history of other diseases of the digestive system (04/21/23) Other specified postprocedural states (04/21/23) Objective Data Objective Data Vital Signs: Vital Signs Temp Pulse Resp BP Pulse Ox O2 Del Method O2 Flow Rate 98.0 F 77 18 131/70 H 96 Room Air 2 04/24/23 08:56 04/24/23 08:56 04/24/23 08:56 04/24/23 08:56 04/24/23 08:56 04/24/23 08:56 04/23/23 02:49 Oxygen Flow Rate (L/min) 2 Oxygen Delivery Method Room Air Weight: 316 lb 12.868 oz Body Mass Index (BMI) 40.6 Intake & Output: Intake and Output for Last 24 Hours 04/22/23 04/23/23 04/24/23 23:59 23:59 23:59 Intake Total 4688.33 / 4688.33 3427.25 / 3427.25 320 / 320 Output Total 3200 / 3200 Balance 1488.33 / 1488.33 3427.25 / 3427.25 320 / 320 Lab / Micro Data 04/24/23 05:51 04/24/23 05:51 Labs: Laboratory Results - last 24 hr 04/24/23 05:51: WBC 9.7, RBC 5.26, Hgb 13.4, Hct 43.7, MCV 83.1, MCH 25.5 L, MCHC 30.7 L, RDW Std Deviation 45.6 H, RDW Coeff of Kiet 15.0 H, Plt Count TNP, MPV 11.3, Immature Gran % (Auto) 1.000 H, Neut % (Auto) 70.5 H, Lymph % (Auto) 15.2 L, [place] % (Auto) 9.7, Eos % (Auto) 3.0, Baso % (Auto) 0.6, Absolute Neuts (auto) 6.8, Absolute Lymphs (auto) 1.47, Nucleated RBC % 0, Platelet Estimate ADEQUATE, Sodium 137, Potassium 3.0 L, Chloride 102, Carbon Dioxide 30.0, Anion Gap 5, BUN 16, Creatinine 0.69 L, Estim Creat Clear Calc 173.73, Est GFR (MDRD) Af Amer 168, Est GFR (MDRD) Non-Af 139, BUN/Creatinine Ratio 23.2 H, Glucose 105, Calcium 8.0 L Micro: Microbiology 04/22/23 04:55 Blood Culture (Wb) - Right Forearm Blood Culture - Preliminary No growth in 48 hours. 04/22/23 04:40 Blood Culture (Wb) - Left Hand Blood Culture - Preliminary No growth in 48 hours. Physical Exam Narrative Seen and examined. Patient had flatus several bowel movements. Abdominal distention has improved. Diet advanced to full liquid. No fever. Patient stated recently had umbilical hernia repair surgery. Physical exam General: Alert, Oriented x3, Cooperative, morbid is a BMI 40.7 KG per square meter. HEENT: Atraumatic, PERRLA, EOMI, Normocephalic Oral: Oral mucosa moist. No Gingival or Mucosal Lesions/ Ulcerations Neck: Supple, No JVD, Negative Carotid Bruits Lungs: Air entry diminished in bilateral lung bases. No crepitation/rhonchi Cardiovascular: Regular rate, Regular Rhythm, Normal S1, Normal S2, No murmurs Abdomen: Bowel Sounds present. Soft, mild tenderness. Dressing is dry. No distention. : No renal angle tenderness. No suprapubic tenderness. Extremities: No edema, Capillary Refill Less than 3 Seconds Skin: No rashes, No breakdown Musculoskeletal: No Tenderness to Palpation of Joints or Extremities Neurological: Cranial nerves II-XII grossly intact, DTR 2+/4. No acute focal neurological deficit. Psych/Mental Status: Normal Affect, Appropriate. Assessment & Plan Assessment/Plan (1) Postoperative fever: PLAN: Plan Patient is a 37-year-old male with history of morbid obesity, anxiety/depression, hypertension who was recently hospitalized from 04/17 through 04/20 for an incarcerated ventral hernia. S/p laparoscopic ventral hernia repair with mesh on 04/[address] Genao. Patient tolerated the procedure well and was discharged home on 04/20. Re-presented to the emergency department on 04/21 with worsening abdominal pain as well as nausea and vomiting. CT abdomen pelvis showed a possible small bowel obstruction as well as possible free air in the abdomen. S/p exploratory laparoscopy with small bowel resection with Dr. Genao on 04/21. No procedural complications, was transferred to [facility] postoperatively without issue. Patient developed a fever of 102F and had worsening sinus tachycardia overnight on 04/22, medicine consulted for further evaluation. 1. Postoperative fever with worsening sinus tachycardia: Patient had CTPA done which did not show any PE. CT abdomen also did not show leak or abscess therefore continue antibiotic. Tmax 103.2 Fahrenheit. Aggressive incentive spirometry. EKG showed sinus tachycardia, known RBBB, no acute ST changes. Chest x-ray was nonacute. Symptomatic management for fever. Continue IV Zosyn. 04/23: Patient had several bowel movements. NG tube was removed yesterday. Patient did not had high grade temperature. Patient is being discharged from surgical service. Antibiotics discontinued. Leukocytosis improving 04/24: No fever. Patient did not had fever off antibiotic. Leukocytosis resolved. 2. Ventral hernia repair complicated by small bowel obstruction ? General surgery primary. S/p procedures on 04/19 and 04/21 as noted above. NG tube in place, patient NPO. Defer to general surgery for further management. Restart home p.o. medications as able. 04/24: Diet advanced to full liquid if tolerated further advanced to soft diet. Anticipate discharge tomorrow. Chronic medical conditions: ? Anxiety/depression: On home sertraline 100 mg daily. Last dose received on 04/20. Restart as able. ? Hypertension: Discontinue HCTZ as patient on IV fluid and has hypokalemia. Blood pressure is normal. DVT prophylaxis: SCDs CODE STATUS: Full code, unverified Clinical Impression(s) from Imaging Studies Abdomen/Pelvis CT 04/21/23 02:47 IMPRESSION: Small bowel obstruction as above with pneumatosis. Bowel ischemia is not excluded. Extensive soft tissue gas of the left anterior abdominal wall, which appears to remain extraperitoneal, although of uncertain source. (Additional history provided, patient is postoperative from recent hernia repair, likely accounting for abdominal wall gas. Wednesday pt had hernia sx with mesh, released yesterday and today unable to keep food down with pain). Critical finding results discussed with Dr. Lynn at 0352 hours eastern time 04/21/2023. However, there is rounded gas containing rim enhancing umbilical 4 cm fluid collection, which may represent abscess versus seroma in this postoperative patient. Inflammatory change extends to the underlying anterior mesentery. Dense patchy left lower lobe airspace disease, to include pneumonia. N.B. : The above Results were Read Back by Tejas Mcdermott MD to Rj Lynn MD, and understanding confirmed on 04/21/2023 03:53:58 (ET). Electronically Signed: Tejas Mcdermott MD at 3:59 EDT , ADDENDUM: 04/21/23 0406 IMPRESSION: Small bowel obstruction as above with pneumatosis. Bowel ischemia is not excluded. Extensive soft tissue gas of the left anterior abdominal wall, which appears to remain extraperitoneal, although of uncertain source. (Additional history provided, patient is postoperative from recent hernia repair, likely accounting for abdominal wall gas. Wednesday pt had hernia sx with mesh, released yesterday and today unable to keep food down with pain). Critical finding results discussed with Dr. Lynn at 0352 hours eastern time 04/21/2023. However, there is rounded gas containing rim enhancing umbilical 4 cm fluid collection, which may represent abscess versus seroma in this postoperative patient. Inflammatory change extends to the underlying anterior mesentery. Dense patchy left lower lobe airspace disease, to include pneumonia. N.B. : The above Results were Read Back by Tejas Mcdermott MD to Rj Lynn MD, and understanding confirmed on 04/21/2023 03:53:58 (ET). Electronically Signed: Tejas Mcdermott MD at 3:59 EDT , KUB X-Ray 04/21/23 05:12 IMPRESSION: Enteric tube tip coils over left upper quadrant gastric lucency, likely proximal stomach. Again noted left lung base airspace disease. Partially imaged dilated small bowel loops, consistent with known bowel obstruction. Electronically Signed: Tejas Mcdermott MD at 7:17 EDT , Chest X-Ray 04/22/23 01:23 IMPRESSION: No evidence of cardiopulmonary disease. Electronically Signed: Олег Engel DO at 2:10 EDT , KUB X-Ray 04/22/23 05:55 IMPRESSION: Small bowel obstruction. Electronically Signed: Олег Engel DO at 6:02 EDT , Chest/Abdomen/Pelvis CTA 04/22/23 06:19 IMPRESSION: 1. Dilated small bowel loops measuring up to 4.4 cm in diameter with air-fluid levels and thickened enhancing zhao with mild adjacent fat stranding. Findings may represent small bowel obstruction with the transition point at the anastomosis in the mid lower abdomen. Enteritis is difficult to exclude. 2. No evidence of an intra-abdominal abscess. 4.0 cm fluid collection in the anterior supraumbilical abdominal wall may represent a seroma or hematoma with a developing abscess difficult to exclude. No rim enhancement to suggest abscess at this time. 3. Left basilar atelectasis versus infiltrates. 4. Fatty infiltration of the liver. Charges/Coding Visit Charges Inpatient E&M: 74012 Subs Hosp L2 04/24/23 1608 <Electronically signed by Bandar Saxena MD> Cosigner Signature (if applicable): CC: ~ Signed [facility] Work Phone: 1(858) 823-101109-23-2023 Progress note Author Gabe Badillo [facility] April 24, 2023 3:05pm Note Date/Time April 24, 2023 9:13am [facility] Medical Records Department [address] [place] [address] Progress Note - Surgery 04/24/23912 MR#: [id number] Acct: [id number] Name: MAYUR WORTHINGTON Rep #:[id number] : 1985 37 From: Gabe Aranda PCP: Dr. Marvin Sheets MD Status:AD M IN Location: [place] [address] Subjective Subjective Patient seen and examined during AM rounds. He is found resting in bed. He states that he is hungry and reports that his abdominal pain is much improved. Objective Data Objective Data Vital Signs: Vital Signs Temp Pulse Resp BP Pulse Ox O2 Del Method O2 Flow Rate 98.0 F 77 18 131/70 H 96 Room Air 2 04/24/23 08:56 04/24/23 08:56 04/24/23 08:56 04/24/23 08:56 04/24/23 08:56 04/24/23 08:56 04/23/23 02:49 Oxygen Flow Rate (L/min) 2 Oxygen Delivery Method Room Air Weight: 316 lb 12.868 oz Body Mass Index (BMI) 40.6 Intake & Output: Intake and Output for Last 24 Hours 04/22/23 04/23/23 04/24/23 23:59 23:59 23:59 Intake Total 4688.33 / 4688.33 3427.25 / 3427.25 320 / 320 Output Total 3200 / 3200 Balance 1488.33 / 1488.33 3427.25 / 3427.25 320 / 320 Lab / Micro Data 04/24/23 05:51 04/24/23 05:51 Labs: Laboratory Results - last 24 hr 04/24/23 05:51: WBC 9.7, RBC 5.26, Hgb 13.4, Hct 43.7, MCV 83.1, MCH 25.5 L, MCHC 30.7 L, RDW Std Deviation 45.6 H, RDW Coeff of Kiet 15.0 H, Plt Count TNP, MPV 11.3, Immature Gran % (Auto) 1.000 H, Neut % (Auto) 70.5 H, Lymph % (Auto) 15.2 L, [place] % (Auto) 9.7, Eos % (Auto) 3.0, Baso % (Auto) 0.6, Absolute Neuts (auto) 6.8, Absolute Lymphs (auto) 1.47, Nucleated RBC % 0, Platelet Estimate ADEQUATE, Sodium 137, Potassium 3.0 L, Chloride 102, Carbon Dioxide 30.0, Anion Gap 5, BUN 16, Creatinine 0.69 L, Estim Creat Clear Calc 173.73, Est GFR (MDRD) Af Amer 168, Est GFR (MDRD) Non-Af 139, BUN/Creatinine Ratio 23.2 H, Glucose 105, Calcium 8.0 L Physical Exam Const oriented x3 and no apparent distress Resp normal respiratory effort GI GI Narrative: Mildly distended, operative dressings initially intact but all of these dressings are removed and overall his wounds are appear to be as expected. There appears to be some mild epidermal dehiscence of his upper midline incisionand this is probed resulting in egress of seroma fluid so it is lightly packed as well with gauze to promote further drainage. Patient does have significant tenderness with removal of his dressings. Assessment & Plan Assessment/Plan (1) Small bowel obstruction: PLAN: Patient is postoperative day 3 and 5 from his small bowel resection and umbilical hernia repair, respectively. Overall he appears comfortable still (but did not well tolerate exploration of his upper midline incision). I did find evidence of a small seroma and so the area was packed and I will plan to reassess on exam tomorrow. He reports tolerance of a diet to date so we will plan to advance to a full liquid diet today. If he is able to tolerate 1 further advancement to a soft diet I find it reasonable [facility] Would anticipate this to be hopefully tomorrow. Charges/Coding Visit Charges Inpatient E&M: 33957 Subs Hosp L2 04/24/23 1505 <Electronically signed by Gabe Badillo MD> Cosigner Signature (if applicable): CC: ~ Signed [facility] Work Phone: 1(741) 679-764509-22-2023 Progress note Author Bandar Saxena [facility] April 23, 2023 4:30pm Note Date/Time April 23, 2023 2:30pm [facility] Medical Records Department [address] [place] [address] Progress Note - Hospitalist 04/23/23 1429 MR#: [id number] Acct: [id number] Name: MAYUR WORTHINGTON Rep #:[id number] : 1985 37 From: Bandar Aranda PCP: Dr. Marvin Sheets MD Status:AD M IN Location: [place] [address]-1 Reason for Visit Reason for Visit: Diagnoses Unspecified intestinal obstruction, unspecified as to partial versus complete obstruction (04/21/23) Nausea with vomiting, unspecified (04/21/23) Postprocedural fever (04/21/23) Personal history of other diseases of the digestive system (04/21/23) Other specified postprocedural states (04/21/23) Objective Data Objective Data Vital Signs: Vital Signs Temp Pulse Resp BP Pulse Ox O2 Del Method O2 Flow Rate 98.3 F 92 18 120/80 94 Room Air 2 04/23/23 12:37 04/23/23 12:37 04/23/23 12:37 04/23/23 12:37 04/23/23 08:49 04/23/23 12:37 04/23/23 02:49 Oxygen Flow Rate (L/min) 2 Oxygen Delivery Method Room Air Weight: 316 lb 12.868 oz Body Mass Index (BMI) 40.6 Intake & Output: Intake and Output for Last 24 Hours 04/21/23 04/22/23 04/23/23 23:59 23:59 23:59 Intake Total 3120 / 3120 4688.33 / 4688.33 2087.25 / 2087.25 Output Total 1949 / 1949 3200 / 3200 Balance 1170 / 1170 1488.33 / 1488.33 / Lab / Micro Data 04/23/23 07:30 04/23/23 07:30 Labs: Laboratory Results - last 24 hr 04/23/23 07:30: WBC 10.1, RBC 5.31, Hgb 13.7, Hct 44.0, MCV 82.9, MCH 25.8 L, MCHC 31.1 L, RDW Std Deviation 46.8 H, RDW Coeff of Kiet 15.4 H, Plt Count 199, MPV 10.8, Immature Gran % (Auto) 1.200 H, Neut % (Auto) 71.2 H, Lymph % (Auto) 14.0 L, [place] % (Auto) 12.4 H, Eos % (Auto) 0.7, Baso % (Auto) 0.5, Absolute Neuts (auto) 7.2, Absolute Lymphs (auto) 1.41, Nucleated RBC % 0, Differential Comment SCANNED, Sodium 141, Potassium 3.5, Chloride 108 H, Carbon Dioxide 29.0,Anion Gap 4 L, BUN 23 H, Creatinine 0.93, Estim Creat Clear Calc 128.90, Est GFR(MDRD) Af Amer 118, Est GFR (MDRD) Non-Af 98, BUN/Creatinine Ratio 24.7 H, Glucose 131 H, Calcium 8.0 L Physical Exam Narrative Seen and examined. Patient had flatus several bowel movements. Abdominal distention is better. Patient stated recently had umbilical hernia repair surgery. Mild low-grade fever Tmax 100.5 Fahrenheit. Physical exam General: Alert, Oriented x3, Cooperative, morbid is a BMI 40.7 KG per square meter. HEENT: Atraumatic, PERRLA, EOMI, Normocephalic Oral: Oral mucosa moist. No Gingival or Mucosal Lesions/ Ulcerations Neck: Supple, No JVD, Negative Carotid Bruits Lungs: Air entry diminished in bilateral lung bases. No crepitation/rhonchi Cardiovascular: Regular rate, Regular Rhythm, Normal S1, Normal S2, No murmurs Abdomen:NG tube removed. Bowel Sounds present. Soft, mild tenderness. Dressing is dry. No distention. : No renal angle tenderness. No suprapubic tenderness. Extremities: No edema, Capillary Refill Less than 3 Seconds Skin: No rashes, No breakdown Musculoskeletal: No Tenderness to Palpation of Joints or Extremities Neurological: Cranial nerves II-XII grossly intact, DTR 2+/4. No acute focal neurological deficit. Psych/Mental Status: Normal Affect, Appropriate. Assessment & Plan Assessment/Plan (1) Postoperative fever: PLAN: Plan Patient is a 37-year-old male with history of morbid obesity, anxiety/depression, hypertension who was recently hospitalized from 04/17 through04/20 for an incarcerated ventral hernia. S/p laparoscopic ventral hernia repairwith mesh on 04/[address] Genao. Patient tolerated the procedure well andwas discharged home on 04/20. Re-presented to the emergency department on 04/21 with worsening abdominal pain as well as nausea and vomiting. CT abdomen pelvisshowed a possible small bowel obstruction as well as possible free air in the abdomen. S/p exploratory laparoscopy with small bowel resection with Dr. Genao on 04/21. No procedural complications, [facility]. Patient developed a fever of 102F and had worsening sinus tachycardia overnight on 04/22, medicine consulted for further evaluation. 1. Postoperative fever with worsening sinus tachycardia: Patient had CTPA done which did not show any PE. CT abdomen also did not show leak or abscess therefore continue antibiotic. Tmax 103.2 Fahrenheit. Aggressive incentive spirometry. EKG showed sinus tachycardia, known RBBB, no acute ST changes. Chest x-ray was nonacute. Symptomatic management for fever. Continue IV Zosyn. 04/23: Patient had several bowel movements. NG tube was removed yesterday. Patient did not had high grade temperature. Patient is being discharged from surgical service. Antibiotics discontinued. Leukocytosis improving 2. Ventral hernia repair complicated by small bowel obstruction ? General surgery primary. S/p procedures on 04/19 and 04/21 as noted above. NG tube in place, patient NPO. Defer to general surgery for further management. Restart home p.o. medications as able. Chronic medical conditions: ? Anxiety/depression: On home sertraline 100 mg daily. Last dose received on 04/20. Restart as able. ? Hypertension: Discontinue HCTZ as patient on IV fluid and has hypokalemia. Blood pressure is normal. DVT prophylaxis: SCDs CODE STATUS: Full code, unverified Clinical Impression(s) from Imaging Studies Abdomen/Pelvis CT 04/21/23 02:47 IMPRESSION: Small bowel obstruction as above with pneumatosis. Bowel ischemia is not excluded. Extensive soft tissue gas of the left anterior abdominal wall, which appears to remain extraperitoneal, although of uncertain source. (Additional history provided, patient is postoperative from recent hernia repair, likely accounting for abdominal wall gas. Wednesday pt had hernia sx with mesh, released yesterday and today unable to keep food down with pain). Critical finding results discussed with Dr. Lynn at 0352 hours eastern time 04/21/2023. However, there is rounded gas containing rim enhancing umbilical 4 cm fluid collection, which may represent abscess versus seroma in this postoperative patient. Inflammatory change extends to the underlying anterior mesentery. Dense patchy left lower lobe airspace disease, to include pneumonia. N.B. : The above Results were Read Back by Tejas Mcdermott MD to Rj Lynn MD, and understanding confirmed on 04/21/2023 03:53:58 (ET). Electronically Signed: Tejas Mcdermott MD at 3:59 EDT , ADDENDUM: 04/21/23 0406 IMPRESSION: Small bowel obstruction as above with pneumatosis. Bowel ischemia is not excluded. Extensive soft tissue gas of the left anterior abdominal wall, which appears to remain extraperitoneal, although of uncertain source. (Additional history provided, patient is postoperative from recent hernia repair, likely accounting for abdominal wall gas. Wednesday pt had hernia sx with mesh, released yesterday and today unable to keep food down with pain). Critical finding results discussed with Dr. Lynn at 0352 hours eastern time 04/21/2023. However, there is rounded gas containing rim enhancing umbilical 4 cm fluid collection, which may represent abscess versus seroma in this postoperative patient. Inflammatory change extends to the underlying anterior mesentery. Dense patchy left lower lobe airspace disease, to include pneumonia. N.B. : The above Results were Read Back by Tejas Mcdermott MD to Rj Lynn MD, and understanding confirmed on 04/21/2023 03:53:58 (ET). Electronically Signed: Tejas Mcdermott MD at 3:59 EDT , KUB X-Ray 04/21/23 05:12 IMPRESSION: Enteric tube tip coils over left upper quadrant gastric lucency, likely proximal stomach. Again noted left lung base airspace disease. Partially imaged dilated small bowel loops, consistent with known bowel obstruction. Electronically Signed: Tejas Mcdermott MD at 7:17 EDT , Chest X-Ray 04/22/23 01:23 IMPRESSION: No evidence of cardiopulmonary disease. Electronically Signed: Олег Engel DO at 2:10 EDT , KUB X-Ray 04/22/23 05:55 IMPRESSION: Small bowel obstruction. Electronically Signed: Олег Engel DO at 6:02 EDT , Chest/Abdomen/Pelvis CTA 04/22/23 06:19 IMPRESSION: 1. Dilated small bowel loops measuring up to 4.4 cm in diameter with air-fluid levels and thickened enhancing zhao with mild adjacent fat stranding. Findings may represent small bowel obstruction with the transition point at the anastomosis in the mid lower abdomen. Enteritis is difficult to exclude. 2. No evidence of an intra-abdominal abscess. 4.0 cm fluid collection in the anterior supraumbilical abdominal wall may represent a seroma or hematoma with a developing abscess difficult to exclude. No rim enhancement to suggest abscess at this time. 3. Left basilar atelectasis versus infiltrates. 4. Fatty infiltration of the liver. Charges/Coding Visit Charges Inpatient E&M: 77704 Subs Hosp L2 04/23/23 1630 <Electronically signed by Bandar Saxena MD> Cosigner Signature (if applicable): CC: ~ Signed [facility] Work Phone: 1(646) 403-282209-22-2023 Discharge summary Author Tejas Genao [facility] April 23, 2023 1:24pm Note Date/Time April 23, 2023 1:18pm [facility] Medical Records Department [address] [place] [address] Discharge Summary 04/23/23 1316 MR#: [id number] Acct: [id number] Name: MAYUR WORTHINGTON Rep #:[id number] : 1985 37 From: Tejas perez MD PCP: Dr. Marvin Sheets MD Status:AD IN Location: [place] [id number] Providers Date of Admission: 04/21/23 Primary Care Physician: Dr. Marvin Sheets MD Consultations 04/22/23 01:29 Consult: Hospitalist Routine Consulting Provider: Everton Faulkner Reason for Consult: fever and tachycardia post procedure EMERGENT Consult: No MD Notified: Yes Date Notified: 04/22/23 Time Notified: 01:30 Method of Notification: Verbal Comments:: Dr Genao contacted hospitalist Reason For Visit: POSTOPERATIVE NAUSEA AND VOMITING Diagnosis Discharge Diagnosis (1) Small bowel obstruction: Status: Acute Code(s): K56.609 - Unspecified intestinal obstruction, unspecified as to partial versus complete obstruction Plan: Patient is still tachycardic but he also may be having withdrawal as he takes a lot of caffeine drinks. The patient is more comfortable than yesterday. The patient wants to advance his diet very slowly as he is feeling very cautious after having thrown up after his last surgery. He would like to slowly advance his diet so I will leave him on clears today. White count is improving. I willstop antibiotics. Tejas Genao MD Pager: [facility] [address] [place] [address], [address] [place] [address] Office: Medications at Discharge Home Medications lisdexamfetamine 70 mg capsule (Vyvanse) 70 mg PO DAILY 12/03/15 albuterol sulfate 90 mcg/actuation aerosol inhaler 2 puff inhalation Q4H PRN shortness of breath 04/17/23 cetirizine 10 mg tablet (24Hour Allergy) 10 mg PO DAILY allergies 04/17/23 fluticasone propionate 50 mcg/actuation nasal spray,suspension 2 spray intranasal DAILY allergies 04/17/23 hydrochlorothiazide 12.5 mg capsule 12.5 mg PO DAILY HTN 04/17/23 lisinopril 10 mg tablet 10 mg PO DAILY 04/17/23 meloxicam 15 mg tablet 15 mg PO DAILY 04/17/23 omeprazole 20 mg capsule,delayed release 20 mg PO DAILY 04/17/23 sertraline 100 mg tablet 100 mg PO DAILY depression 04/17/23 docusate sodium 100 mg capsule 100 mg PO BID 14 days #28 caps 04/20/23 oxycodone 5 mg tablet 5 mg PO Q6H PRN PRN Pain Score 4-10 10 days #30 tabs 04/20/23 Hospital Course Summary of Care Provided Hospital Course: Patient was readmitted after ventral hernia repair. The patient was originally admitted for incarcerated hernia with small bowel obstruction. The patient wenthome from surgery and started having vomiting. He was readmitted after a CT scan showed thickening of the small bowel with obstruction. He was taken for surgery and that segment of small bowel was resected and he had anastomosis. Patient did have postoperative fever and tachycardia and medicine was consulted. He had a CTA of the chest abdomen pelvis that did not show any PE or leak. Patient's white count continue to trend downward. Once tolerating a diet after surgery he was discharged home. Weight / BMI Weight Weight: 316 lb 12.868 oz Body Mass Index (BMI) 40.6 ABG / Lab / Microbiology Data 04/23/23 07:30 04/23/23 07:30 Laboratory: Laboratory Results - last 24 hr 04/23/23 07:30: WBC 10.1, RBC 5.31, Hgb 13.7, Hct 44.0, MCV 82.9, MCH 25.8 L, MCHC 31.1 L, RDW Std Deviation 46.8 H, RDW Coeff of Kiet 15.4 H, Plt Count 199, MPV 10.8, Immature Gran % (Auto) 1.200 H, Neut % (Auto) 71.2 H, Lymph % (Auto) 14.0 L, [place] % (Auto) 12.4 H, Eos % (Auto) 0.7, Baso % (Auto) 0.5, Absolute Neuts (auto) 7.2, Absolute Lymphs (auto) 1.41, Nucleated RBC % 0, Differential Comment SCANNED, Sodium 141, Potassium 3.5, Chloride 108 H, Carbon Dioxide 29.0,Anion Gap 4 L, BUN 23 H, Creatinine 0.93, Estim Creat Clear Calc 128.90, Est GFR(MDRD) Af Amer 118, Est GFR (MDRD) Non-Af 98, BUN/Creatinine Ratio 24.7 H, Glucose 131 H, Calcium 8.0 L D/C Instructions Discharge Diet: Light diet - advance as tolerated Discharge Activity: May Not Drive (while on pain medication) and May Shower Lifting Restrictions: 15 lbs for 6 weeks Call your doctor if your incision/area has: Continuous Slow Oozing, Sudden Increased Bleeding, Increased Pain/ Swelling, Increased Redness, Foul Smelling Discharge and Swelling at the incision site Call your doctor if you observe: Fever of 101 or Higher, Inability to urinate and Inability to have a bowel movement Change Dressing in: 1 day Cleanse incision/area with: Soap & Water Please Follow Up With: Tejas Genao MD When: Please call to schedule 2 week follow up appointment. [phone] Meaningful Use Info Meaningful Use Diagnoses (Choose all that apply): None applicable Discharge Plan Admission Admit Date/Time: 04/21/23 06:14 Attending Provider: Tejas Genao Primary Care Provider: Marvin Sheets Consulting Providers: Bandar Saxena; Everton Faulkner Discharge Orders/Prescriptions Prescriptions: Continued lisdexamfetamine [Vyvanse] 70 MG capsule 70 mg PO DAILY meloxicam 15 mg tablet 15 mg PO DAILY Patient Comments: TAKE 1 TABLET BY MOUTH ONCE DAILY. TAKE WITH FOOD. sertraline 100 mg tablet 100 mg PO DAILY lisinopril 10 mg tablet 10 mg PO DAILY Patient Comments: TAKE 1 TABLET BY MOUTH EVERY DAY hydrochlorothiazide 12.5 mg capsule 12.5 mg PO DAILY albuterol sulfate 90 mcg/actuation HFA aerosol inhaler 2 puff INHALATION Q4H PRN (Reason: shortness of breath) Patient Comments: INHALE 2 PUFFS BY MOUTH EVERY 6 HOURS NEEDED DIRECTED fluticasone propionate 50 mcg/actuation spray,suspension 2 spray INTRANASAL DAILY Patient Comments: SPRAY 2 SPRAYS INTO EACH NOSTRIL EVERY DAY omeprazole 20 mg capsule,delayed release(DR/EC) 20 mg PO DAILY cetirizine [24Hour Allergy] 10 mg tablet 10 mg PO DAILY docusate sodium 100 mg Capsule 100 mg PO BID 14 Days Qty: 28 0RF oxycodone 5 mg Tablet 5 mg PO Q6H PRN PRN (Reason: Pain Score 4-10) 10 Days Qty: 30 0RF Referrals / Follow Up: Marvin Sheets MD [Primary Care Provider] - Disposition Disposition (needs filled in before D/C Order can be placed): Home, Self Care 04/23/23 1324 <Electronically signed by Tejas Genao MD> Cosigner Signature (if applicable): CC: Dr. Tejas Genao MD; Dr. Marvin Sheets MD~ Signed [facility] Work Phone: 1(387) 186-339009-22-2023 Progress note Author Tejas [facility] April 23, 2023 10:32am Note Date/Time April 23, 2023 10:32am [facility] Medical Records Department [address] [place] [address] Progress Note - Surgery 04/23/23 1031 MR#: [id number] Acct: [id number] Name: MAYUR WORTHINGTON Rep #:[id number] : 1985 37 From: Tejas perez MD PCP: Dr. Marvin Sheets MD Status:AD M IN Location: [facility] [id number] Subjective Subjective Yesterday the patient did better than he did the night before. In the last 24 hours he is only had a low-grade fever of 100.5. He describes some flatus. He denies nausea or vomiting. His NG was removed yesterday. Objective Data Objective Data Vital Signs: Vital Signs Temp Pulse Resp BP Pulse Ox O2 Del Method O2 Flow Rate 97.8 F 99 18 120/78 94 Room Air 2 04/23/23 08:49 04/23/23 08:49 04/23/23 08:49 04/23/23 08:49 04/23/23 08:49 04/23/23 08:49 04/23/23 02:49 Oxygen Flow Rate (L/min) 2 Oxygen Delivery Method Room Air Weight: 316 lb 12.868 oz Body Mass Index (BMI) 40.6 Intake & Output: Intake and Output for Last 24 Hours 04/21/23 04/22/23 04/23/23 23:59 23:59 23:59 Intake Total 3120 / 3120 4688.33 / 4688.33 981.25 / 981.25 Output Total 1950 / 1950 3200 / 3200 Balance 1170 / 1170 1488.33 / 1488.33 981.25 / 981.25 Lab / Micro Data 04/23/23 07:30 04/23/23 07:30 Labs: Laboratory Results - last 24 hr 04/23/23 07:30: WBC 10.1, RBC 5.31, Hgb 13.7, Hct 44.0, MCV 82.9, MCH 25.8 L, MCHC 31.1 L, RDW Std Deviation 46.8 H, RDW Coeff of Kiet 15.4 H, Plt Count 199, MPV 10.8, Immature Gran % (Auto) 1.200 H, Neut % (Auto) 71.2 H, Lymph % (Auto) 14.0 L, [place] % (Auto) 12.4 H, Eos % (Auto) 0.7, Baso % (Auto) 0.5, Absolute Neuts (auto) 7.2, Absolute Lymphs (auto) 1.41, Nucleated RBC % 0, Differential Comment SCANNED, Sodium 141, Potassium 3.5, Chloride 108 H, Carbon Dioxide 29.0,Anion Gap 4 L, BUN 23 H, Creatinine 0.93, Estim Creat Clear Calc 128.90, Est GFR(MDRD) Af Amer 118, Est GFR (MDRD) Non-Af 98, BUN/Creatinine Ratio 24.7 H, Glucose 131 H, Calcium 8.0 L Physical Exam Const oriented x3 and no apparent distress Resp normal respiratory effort GI soft to palpation Inspection: Negative for abdominal distention Assessment & Plan Assessment/Plan (1) Small bowel obstruction: PLAN: Patient is still tachycardic but he also may be having withdrawal as he takes a lot of caffeine drinks. The patient is more comfortable than yesterday. The patient wants to advance his diet very slowly as he is feeling very cautious after having thrown up after his last surgery. He would like to slowlyadvance his diet so I will leave him on clears today. White count is improving. I will stop antibiotics. Tejas Genao MD Pager: [facility] [address] [place] [address], [address] [place] [address] Office: 04/23/23 1032 <Electronically signed by Tejas Genao MD> Cosigner Signature (if applicable): CC: ~ Signed [facility] Work Phone: 1(917) 768-897409-21-2023 Progress note Author Bandar Saxena [facility] April 22, 2023 5:42pm Note Date/Time April 22, 2023 10:00am [facility] Medical Records Department [address] [place] [address] Progress Note - Hospitalist 04/22/23 0959 MR#: [id number] Acct: [id number] Name: MAYUR WORTHINGTON Rep #:[id number] : 1985 37 From: Bandar Aranda PCP: Dr. Marvin Sheets MD Status:AD IN Location: [place] [address] Reason for Visit Reason for Visit: Diagnoses Unspecified intestinal obstruction, unspecified as to partial versus complete obstruction (04/21/23) Nausea with vomiting, unspecified (04/21/23) Postprocedural fever (04/21/23) Personal history of other diseases of the digestive system (04/21/23) Other specified postprocedural states (04/21/23) Objective Data Objective Data Vital Signs: Vital Signs Temp Pulse Resp BP Pulse Ox O2 Del Method O2 Flow Rate 99.4 F H 110 H 28 H 153/80 H 95 Nasal Cannula 2 04/22/23 07:37 04/22/23 07:37 04/22/23 07:37 04/22/23 07:37 04/22/23 07:37 04/22/23 07:37 04/22/23 07:37 Oxygen Flow Rate (L/min) 2 Oxygen Delivery Method Nasal Cannula Weight: 316 lb 12.868 oz Body Mass Index (BMI) 40.6 Intake & Output: Intake and Output for Last 24 Hours 04/20/23 04/21/23 04/22/23 23:59 23:59 23:59 Intake Total 3120 / 3120 2080 / 2080 Output Total 1950 / 1950 1900 / 1900 Balance 1170 / 1170 180 / 180 Lab / Micro Data 04/22/23 04:55 04/22/23 04:55 Labs: Laboratory Results - last 24 hr 04/22/23 04:55: WBC 11.5 H, RBC 6.16, Hgb 15.7, Hct 50.3, MCV 81.7, MCH 25.5 L, MCHC 31.2 L, RDW Std Deviation 46.3 H, RDW Coeff of Kiet 16.0 H, Plt Count 214, MPV 10.6, Immature Gran % (Auto) 1.000 H, Neut % (Auto) 76.0 H, Lymph % (Auto) 10.0 L, [place] % (Auto) 12.0 H, Eos % (Auto) 0.3, Baso % (Auto) 0.7, Absolute Neuts (auto) 8.7 H, Absolute Lymphs (auto) 1.15, Nucleated RBC % 0, Anisocytosis1+, Sodium 138, Potassium 3.4 L, Chloride 106, Carbon Dioxide 26.0, Anion Gap 6,BUN 21 H, Creatinine 1.13, Estim Creat Clear Calc 106.08, Est GFR (MDRD) Af Amer95, Est GFR (MDRD) Non-Af 78, BUN/Creatinine Ratio 18.6, Glucose 156 H, Lactic Acid 1.2, Calcium 7.8 L, Magnesium 2.3 Radiography Diagnostic Testing: Radiology Impression Chest X-Ray 04/22/23 01:23 IMPRESSION: No evidence of cardiopulmonary disease. Electronically Signed: Олег Engel DO at 2:10 EDT , KUB X-Ray 04/22/23 05:55 IMPRESSION: Small bowel obstruction. Electronically Signed: Олег Engel DO at 6:02 EDT , Chest/Abdomen/Pelvis CTA 04/22/23 06:19 IMPRESSION: 1. Dilated small bowel loops measuring up to 4.4 cm in diameter with air-fluid levels and thickened enhancing zhao with mild adjacent fat stranding. Findings may represent small bowel obstruction with the transition point at the anastomosis in the mid lower abdomen. Enteritis is difficult to exclude. 2. No evidence of an intra-abdominal abscess. 4.0 cm fluid collection in the anterior supraumbilical abdominal wall may represent a seroma or hematoma with a developing abscess difficult to exclude. No rim enhancement to suggest abscess at this time. 3. Left basilar atelectasis versus infiltrates. 4. Fatty infiltration of the liver. Electronically Signed: Олег Engel DO at 7:21 EDT , Physical Exam Narrative Seen and examined. Patient had flatus today but no bowel movement. Patient is walking aggressively. Patient stated recently had umbilical hernia repair surgery. Mild low-grade fever 99.4 Fahrenheit. Tachycardia and tachypnea. Physical exam General: Alert, Oriented x3, Cooperative, morbid is a BMI 40.7 KG per square meter. HEENT: Atraumatic, PERRLA, EOMI, Normocephalic Oral: Oral mucosa moist. No Gingival or Mucosal Lesions/ Ulcerations Neck: Supple, No JVD, Negative Carotid Bruits Lungs: Air entry diminished in bilateral lung bases. No crepitation/rhonchi Cardiovascular: Regular rate, Regular Rhythm, Normal S1, Normal S2, No murmurs Abdomen: NG tube: Bilious aspirate. Bowel Sounds absent. Soft, mild tenderness. Dressing is dry. No distention. : No renal angle tenderness. No suprapubic tenderness. Extremities: No edema, Capillary Refill Less than 3 Seconds Skin: No rashes, No breakdown Musculoskeletal: No Tenderness to Palpation of Joints or Extremities Neurological: Cranial nerves II-XII grossly intact, DTR 2+/4. No acute focal neurological deficit. Psych/Mental Status: Normal Affect, Appropriate. Assessment & Plan Assessment/Plan (1) Postoperative fever: PLAN: Plan Patient is a 37-year-old male with history of morbid obesity, anxiety/depression, hypertension who was recently hospitalized from 04/17 through04/20 for an incarcerated ventral hernia. S/p laparoscopic ventral hernia repairwith mesh on 04/[address] Genao. Patient tolerated the procedure well andwas discharged home on 04/20. Re-presented to the emergency department on 04/21 with worsening abdominal pain as well as nausea and vomiting. CT abdomen pelvisshowed a possible small bowel obstruction as well as possible free air in the abdomen. S/p exploratory laparoscopy with small bowel resection with Dr. Genao on 04/21. No procedural complications, was transferred to [facility] postoperatively without issue. Patient developed a fever of 102F and had worsening sinus tachycardia overnight on 04/22, medicine consulted for further evaluation. 1. Postoperative fever with worsening sinus tachycardia: Patient had CTPA done which did not show any PE. CT abdomen also did not show leak or abscess therefore continue antibiotic. Tmax 103.2 Fahrenheit. Aggressive incentive spirometry. EKG showed sinus tachycardia, known RBBB, no acute ST changes. Chest x-ray was nonacute. Symptomatic management for fever. Continue IV Zosyn. 2. Ventral hernia repair complicated by small bowel obstruction ? General surgery primary. S/p procedures on 04/19 and 04/21 as noted above. NG tube in place, patient NPO. Defer to general surgery for further management. Restart home p.o. medications as able. Chronic medical conditions: ? Anxiety/depression: On home sertraline 100 mg daily. Last dose received on 04/20. Restart as able. ? Hypertension: Discontinue HCTZ as patient on IV fluid and has hypokalemia. Blood pressure is normal. DVT prophylaxis: SCDs CODE STATUS: Full code, unverified Clinical Impression(s) from Imaging Studies Abdomen/Pelvis CT 04/21/23 02:47 IMPRESSION: Small bowel obstruction as above with pneumatosis. Bowel ischemia is not excluded. Extensive soft tissue gas of the left anterior abdominal wall, which appears to remain extraperitoneal, although of uncertain source. (Additional history provided, patient is postoperative from recent hernia repair, likely accounting for abdominal wall gas. Wednesday pt had hernia sx with mesh, released yesterday and today unable to keep food down with pain). Critical finding results discussed with Dr. Lynn at 0352 hours eastern time 04/21/2023. However, there is rounded gas containing rim enhancing umbilical 4 cm fluid collection, which may represent abscess versus seroma in this postoperative patient. Inflammatory change extends to the underlying anterior mesentery. Dense patchy left lower lobe airspace disease, to include pneumonia. N.B. : The above Results were Read Back by Tejas Mcdermott MD to Rj Lynn MD, and understanding confirmed on 04/21/2023 03:53:58 (ET). Electronically Signed: Tejas Mcdermott MD at 3:59 EDT , ADDENDUM: 04/21/23 0406 IMPRESSION: Small bowel obstruction as above with pneumatosis. Bowel ischemia is not excluded. Extensive soft tissue gas of the left anterior abdominal wall, which appears to remain extraperitoneal, although of uncertain source. (Additional history provided, patient is postoperative from recent hernia repair, likely accounting for abdominal wall gas. Wednesday pt had hernia sx with mesh, released yesterday and today unable to keep food down with pain). Critical finding results discussed with Dr. Lynn at 0352 hours eastern time 04/21/2023. However, there is rounded gas containing rim enhancing umbilical 4 cm fluid collection, which may represent abscess versus seroma in this postoperative patient. Inflammatory change extends to the underlying anterior mesentery. Dense patchy left lower lobe airspace disease, to include pneumonia. N.B. : The above Results were Read Back by Tejas Mcdermott MD to Rj Lynn MD, and understanding confirmed on 04/21/2023 03:53:58 (ET). Electronically Signed: Tejas Mcdermott MD at 3:59 EDT , KUB X-Ray 04/21/23 05:12 IMPRESSION: Enteric tube tip coils over left upper quadrant gastric lucency, likely proximal stomach. Again noted left lung base airspace disease. Partially imaged dilated small bowel loops, consistent with known bowel obstruction. Electronically Signed: Tejas Mcdermott MD at 7:17 EDT , Chest X-Ray 04/22/23 01:23 IMPRESSION: No evidence of cardiopulmonary disease. Electronically Signed: Олег Engel DO at 2:10 EDT , KUB X-Ray 04/22/23 05:55 IMPRESSION: Small bowel obstruction. Electronically Signed: Олег Engel DO at 6:02 EDT , Chest/Abdomen/Pelvis CTA 04/22/23 06:19 IMPRESSION: 1. Dilated small bowel loops measuring up to 4.4 cm in diameter with air-fluid levels and thickened enhancing zhao with mild adjacent fat stranding. Findings may represent small bowel obstruction with the transition point at the anastomosis in the mid lower abdomen. Enteritis is difficult to exclude. 2. No evidence of an intra-abdominal abscess. 4.0 cm fluid collection in the anterior supraumbilical abdominal wall may represent a seroma or hematoma with a developing abscess difficult to exclude. No rim enhancement to suggest abscess at this time. 3. Left basilar atelectasis versus infiltrates. 4. Fatty infiltration of the liver. Charges/Coding Visit Charges Inpatient E&M: 43697 Subs Hosp L2 04/22/23 1742 <Electronically signed by Bandar Saxena MD> Cosigner Signature (if applicable): CC: ~ Signed [facility] Work Phone: 1([phone]) 607-721309-21-2023 Progress note Author Tejas Genao [facility] April 22, 2023 7:51am Note Date/Time April 22, 2023 7:48am [facility] Medical Records Department [address] [place] [address] Progress Note - Surgery 04/22/23 0746 MR#: [id number] Acct: [id number] Name: MAYUR WORTHINGTON Rep #:[id number] : 1985 37 From: Tejas perez MD PCP: Dr. Marvin Sheets MD Status:AD M IN Location: [address] Subjective Subjective The patient required nasal cannula overnight and was having tachycardia with fever. Objective Data Objective Data Vital Signs: Vital Signs Temp Pulse Resp BP Pulse Ox O2 Del Method O2 Flow Rate 99.4 F H 110 H 28 H 153/80 H 95 Nasal Cannula 2 04/22/23 07:37 04/22/23 07:37 04/22/23 07:37 04/22/23 07:37 04/22/23 07:37 04/22/23 07:37 04/22/23 07:37 Oxygen Flow Rate (L/min) 2 Oxygen Delivery Method Nasal Cannula Weight: 316 lb 12.868 oz Body Mass Index (BMI) 40.6 Intake & Output: Intake and Output for Last 24 Hours 04/20/23 04/21/23 04/22/23 23:59 23:59 23:59 Intake Total 3120 / 3120 2080 / 2080 Output Total 1950 / 1950 1900 / 1900 Balance 1170 / 1170 180 / 180 Lab / Micro Data 04/22/23 04:55 04/22/23 04:55 Labs: Laboratory Results - last 24 hr 04/22/23 04:55: WBC 11.5 H, RBC 6.16, Hgb 15.7, Hct 50.3, MCV 81.7, MCH 25.5 L, MCHC 31.2 L, RDW Std Deviation 46.3 H, RDW Coeff of Kiet 16.0 H, Plt Count 214, MPV 10.6, Immature Gran % (Auto) 1.000 H, Neut % (Auto) 76.0 H, Lymph % (Auto) 10.0 L, [place] % (Auto) 12.0 H, Eos % (Auto) 0.3, Baso % (Auto) 0.7, Absolute Neuts (auto) 8.7 H, Absolute Lymphs (auto) 1.15, Nucleated RBC % 0, Anisocytosis1+, Sodium 138, Potassium 3.4 L, Chloride 106, Carbon Dioxide 26.0, Anion Gap 6,BUN 21 H, Creatinine 1.13, Estim Creat Clear Calc 106.08, Est GFR (MDRD) Af Amer95, Est GFR (MDRD) Non-Af 78, BUN/Creatinine Ratio 18.6, Glucose 156 H, Lactic Acid 1.2, Calcium 7.8 L, Magnesium 2.3 Radiography Diagnostic Testing: Radiology Impression Chest X-Ray 04/22/23 01:23 IMPRESSION: No evidence of cardiopulmonary disease. Electronically Signed: Олег Engel DO at 2:10 EDT , KUB X-Ray 04/22/23 05:55 IMPRESSION: Small bowel obstruction. Electronically Signed: Олег Engel DO at 6:02 EDT , Chest/Abdomen/Pelvis CTA 04/22/23 06:19 IMPRESSION: 1. Dilated small bowel loops measuring up to 4.4 cm in diameter with air-fluid levels and thickened enhancing zhao with mild adjacent fat stranding. Findings may represent small bowel obstruction with the transition point at the anastomosis in the mid lower abdomen. Enteritis is difficult to exclude. 2. No evidence of an intra-abdominal abscess. 4.0 cm fluid collection in the anterior supraumbilical abdominal wall may represent a seroma or hematoma with a developing abscess difficult to exclude. No rim enhancement to suggest abscess at this time. 3. Left basilar atelectasis versus infiltrates. 4. Fatty infiltration of the liver. Electronically Signed: Олег Engel DO at 7:21 EDT , Physical Exam Const oriented x3 Resp normal respiratory effort Cardio regular rhythm Rate: tachycardic GI soft to palpation Palpation: tender Extremity normal to inspection Assessment & Plan Assessment/Plan (1) Small bowel obstruction: PLAN: The patient had tachycardia overnight. He also had increased tachypnea and was placed on nasal cannula. He is describing abdominal pain over his incision. His NG appears bilious. I performed a chest x-ray which was normal. He received a bolus and was started on Tylenol. His tachycardia improved and his fever did come down. I ordered a CTA of his chest which does not appear to show PE. I reviewed the abdomen pelvis CT scan and there does not appear to be an abscess or leak from the anastomosis. His white count is decreasing as well as his left shift. For today I will continue antibiotics and Tylenol and continue to observe. I encourage incentive spirometer and pain control as the nurse believes he is breathing shallow due to his abdominal pain. Tejas Genao MD Pager: [facility] [address] [place] [address], [address] [place] [address] Office: 04/22/23 0577 <Electronically signed by Tejas Genao MD> Cosigner Signature (if applicable): CC: ~ Signed [facility] Work Phone: 1([phone]) 251-115109-21-2023 Consult note Author Everton Faulkner [facility] April 22, 2023 2:56am Note Date/Time April 22, 2023 1:46am [facility] Medical Records Department [address] [place] [address] Consultation - Hospitalist 04/22/23 0146 MR#: [id number] Acct: [id number] Name: MAYUR WORTHINGTON Rep #:[id number] : 1985 37 From: Everton hui DO PCP: Dr. Marvin Sheets MD Status:AD M IN Location: [facility] [id number] Assessment & Plan Assessment/Plan (1) Postoperative fever: PLAN: Plan Patient is a 37-year-old male with history of morbid obesity, anxiety/depression, hypertension who was recently hospitalized from 04/17 through04/20 for an incarcerated ventral hernia. S/p laparoscopic ventral hernia repairwith mesh on 04/[address] Genao. Patient tolerated the procedure well andwas discharged home on 04/20. Re-presented to the emergency department on 04/21 with worsening abdominal pain as well as nausea and vomiting. CT abdomen pelvisshowed a possible small bowel obstruction as well as possible free air in the abdomen. S/p exploratory laparoscopy with small bowel resection with Dr. Genao on 04/21. No procedural complications, was transferred to [facility] postoperatively without issue. Patient developed a fever of 102F and had worsening sinus tachycardia overnight on 04/22, medicine consulted for further evaluation. 1. Postoperative fever with worsening sinus tachycardia Unclear etiology but seems most likely secondary to postoperative response. Lowconcern for an infection that is not being covered by Zosyn, which was initiatedon admission. No concern for fever secondary to either administration of medications, or medication withdrawal on review of patient's record. Patient had low-grade fevers of 99-100F a few hours postoperatively, but then spiked a fever of 102F at 1 AM on 04/22. Patient reported subjective fevers and chills atthat time. Also had worsening sinus tachycardia from a heart rate around 100-110 worsened to 130. On my review, EKG showed sinus tachycardia, known RBBB, noacute ST changes. Chest x-ray was nonacute. Patient was given Tylenol and a one-time dose of IV Ativan prior to my arrival to the bedside. On my interview,patient was sitting comfortably at edge of bed, reported no abdominal pain or discomfort, no increased work of breathing on 2 L nasal cannula, otherwise no acute distress. ?We will monitor patient's sinus tachycardia after administration of 1 L of IV fluids. Continue Zosyn. Follow-up blood cultures. Treat patient's known anxiety as below. CBC daily. Continue IV morphine every 2 hours as needed for pain control. 2. Ventral hernia repair complicated by small bowel obstruction ? General surgery primary. S/p procedures on 04/19 and 04/21 as noted above. NG tube in place, patient NPO. Defer to general surgery for further management. Restart home p.o. medications as able. Chronic medical conditions: ? Anxiety/depression: On home sertraline 100 mg daily. Last dose received on 04/20. Restart as able. ? Hypertension: On home hydrochlorothiazide 12.5 mg daily and lisinopril 10 mg daily. Restart as able. DVT prophylaxis: SCDs CODE STATUS: Full code, unverified Expected disposition: Home, TBD Total clinical time spent by myself addressing the patient's medical issues, reviewing all the data, and collaborating with patient's care team: 35 minutes. HPI Consult Data Date of Consult: 04/22/23 HPI Narrative Reason for Consultation: Postoperative fever and tachycardia HPI Narrative: MAYUR WORTHINGTON, is a 37 M with history of morbid obesity, anxiety/depression, hypertension who was recently hospitalized from 04/17 through 04/20 for an incarcerated ventral hernia. S/p laparoscopic ventral hernia repair with mesh on 04/[address] Genao. Patient tolerated the procedure well and was discharged home on 04/20. Re-presented to the emergency department on 04/21 with worsening abdominal pain as well as nausea and vomiting. CT abdomen pelvis showed a possible small bowel obstruction as well as possible free air in the abdomen. S/p exploratory laparoscopy with small bowel resection with Dr. Genao on 04/21. No procedural complications, was transferred to [facility] floor postoperatively without issue. Patient developed a fever of 102F and had worsening sinus tachycardia overnight on 04/22, medicine consulted for further evaluation. Patient seen at bedside around 1 AM on 04/22. Patient was sitting comfortably atthe edge of the bed, alert, breathing comfortably and conversing normally, in noacute distress. States he feels better after receiving doses of Tylenol and IV Ativan. He denies any acute abdominal pain or discomfort. He denies any chest pain or shortness of breath. He does feel very fatigued overall and weaker thanhis baseline. He notes that he had fevers and chills that started about 1 to 2 hours ago, are now improved after taking Tylenol. He feels like he can go back to sleep at this time. No other acute concerns. [facility] Medical History (Updated 04/22/23 @ 02:[address] Everton Faulkner, DO) Anxiety Depression Former smoker Hypertension Non-smoker Umbilical hernia Home Medications lisdexamfetamine 70 mg capsule (Vyvanse) 70 mg PO DAILY 12/03/15 [History Last Taken Unknown] albuterol sulfate 90 mcg/actuation aerosol inhaler 2 puff inhalation Q4H PRN shortness of breath 04/17/23 [History Last Taken Unknown] cetirizine 10 mg tablet (24Hour Allergy) 10 mg PO DAILY allergies 04/17/23 [History Last Taken Unknown] fluticasone propionate 50 mcg/actuation nasal spray,suspension 2 spray intranasal DAILY allergies 04/17/23 [History Last Taken Unknown] hydrochlorothiazide 12.5 mg capsule 12.5 mg PO DAILY HTN 04/17/23 [History Last Taken Unknown] lisinopril 10 mg tablet 10 mg PO DAILY 04/17/23 [History Last Taken Unknown] meloxicam 15 mg tablet 15 mg PO DAILY 04/17/23 [History Last Taken Unknown] omeprazole 20 mg capsule,delayed release 20 mg PO DAILY 04/17/23 [History Last Taken Unknown] sertraline 100 mg tablet 100 mg PO DAILY depression 04/17/23 [History Last Taken Unknown] docusate sodium 100 mg capsule 100 mg PO BID 14 days #28 caps 04/20/23 [Rx Last Taken Unknown] oxycodone 5 mg tablet 5 mg PO Q6H PRN PRN Pain Score 4-10 10 days #30 tabs 04/20/23 [Rx Last Taken Unknown] Allergy/AdvReac Type Severity Reaction Status Date / Time latex Allergy Rash Verified 04/21/23 02:36 Surgical History History of umbilical hernia repair Social History Smoking Status: Former smoker ROS Constitutional Constitutional: Reports fatigue, malaise and weakness; Denies chills or fever(s) Eyes Eyes: Denies change in vision Cardiovascular Cardiovascular: Denies chest pain, lightheadedness or palpitations Respiratory/Chest Respiratory/Chest: Denies cough, shortness of breath at rest or wheezing Gastrointestinal Gastrointestinal: Denies abdominal pain, nausea or vomiting Physical Exam Const alert and oriented x3 Constitutional Narrative: Alert but fatigued appearing male, morbidly obese, sitting comfortably at edge of bed, conversing normally, no acute distress. General Appearance: cooperative, comfortable, well kempt and well developed HEENT normocephalic, head/scalp atraumatic, hearing grossly normal bilaterally, nasal mucous membranes and turbinates normal and moist oral mucous membranes Eyes PERRL, EOMs intact bilaterally and conjunctivae normal Neck full ROM, no lymphadenopathy and supple Lymph Lymphatic: no lymphadenopathy noted Chest inspection of chest normal Resp normal respiratory effort, normal air movement, no use of accessory muscles and clear to auscultation bilaterally Cardio regular rhythm, no murmurs and peripheral pulses 2+ throughout Cardio Narrative: Sinus tachycardia. GI GI Narrative: Mildly distended but soft and nontender to palpation. Back/Spine normal ROM Extremity normal to inspection, full ROM and no pedal edema Skin no rashes or lesions noted Psych mental status grossly normal Lab / Micro Data 04/21/23 02:55 04/21/23 02:55 Labs: Laboratory Results - last 24 hr 04/21/23 02:55: WBC 13.1 H, RBC 6.25 H, Hgb 16.2, Hct 49.9, MCV 79.8 L, MCH 25.9L, MCHC 32.5, RDW Std Deviation 43.9, RDW Coeff of Kiet 16.1 H, Plt Count 204, MPV 10.7, Immature Gran % (Auto) 0.700, Neut % (Auto) 81.3 H, Lymph % (Auto) 7.3L, [place] % (Auto) 10.1 H, Eos % (Auto) 0.1, Baso % (Auto) 0.5, Absolute Neuts (auto) 10.6 H, Absolute Lymphs (auto) 0.95, Nucleated RBC % 0, Sodium 134 L, Potassium 3.7, Chloride 99, Carbon Dioxide 29.0, Anion Gap 6, BUN 18, Creatinine1.03, Estim Creat Clear Calc 116.38, Est GFR (MDRD) Af Amer 105, Est GFR (MDRD) Non-Af 87, BUN/Creatinine Ratio 17.5, Glucose 162 H, Calcium 8.8, Total Bilirubin 1.10 H, AST 16, ALT 44, Alkaline Phosphatase 75, Total Protein 8.0, Albumin 3.6, Globulin 4.4 H, Albumin/Globulin Ratio 0.8 L, Lipase 59 04/21/23 04:18: Lactic Acid 1.0 Radiology Impression Abdomen/Pelvis CT 04/21/23 02:47 IMPRESSION: Small bowel obstruction as above with pneumatosis. Bowel ischemia is not excluded. Extensive soft tissue gas of the left anterior abdominal wall, which appears to remain extraperitoneal, although of uncertain source. (Additional history provided, patient is postoperative from recent hernia repair, likely accounting for abdominal wall gas. Wednesday pt had hernia sx with mesh, released yesterday and today unable to keep food down with pain). Critical finding results discussed with Dr. Lynn at 0352 hours eastern time 04/21/2023. However, there is rounded gas containing rim enhancing umbilical 4 cm fluid collection, which may represent abscess versus seroma in this postoperative patient. Inflammatory change extends to the underlying anterior mesentery. Dense patchy left lower lobe airspace disease, to include pneumonia. N.B. : The above Results were Read Back by Tejas Mcdermott MD to Rj Lynn MD, and understanding confirmed on 04/21/2023 03:53:58 (ET). Electronically Signed: Tejas Mcdermott MD at 3:59 EDT , ADDENDUM: 04/21/23 0406 IMPRESSION: Small bowel obstruction as above with pneumatosis. Bowel ischemia is not excluded. Extensive soft tissue gas of the left anterior abdominal wall, which appears to remain extraperitoneal, although of uncertain source. (Additional history provided, patient is postoperative from recent hernia repair, likely accounting for abdominal wall gas. Wednesday pt had hernia sx with mesh, released yesterday and today unable to keep food down with pain). Critical finding results discussed with Dr. Lynn at 0352 hours eastern time 04/21/2023. However, there is rounded gas containing rim enhancing umbilical 4 cm fluid collection, which may represent abscess versus seroma in this postoperative patient. Inflammatory change extends to the underlying anterior mesentery. Dense patchy left lower lobe airspace disease, to include pneumonia. N.B. : The above Results were Read Back by Tejas Mcdermott MD to Rj Lynn MD, and understanding confirmed on 04/21/2023 03:53:58 (ET). Electronically Signed: Tejas Mcdermott MD at 3:59 EDT , KUB X-Ray 04/21/23 05:12 IMPRESSION: Enteric tube tip coils over left upper quadrant gastric lucency, likely proximal stomach. Again noted left lung base airspace disease. Partially imaged dilated small bowel loops, consistent with known bowel obstruction. Electronically Signed: Tejas Mcdermott MD at 7:17 EDT , Charges/Coding Visit Charges Inpatient E&M: 37223 Subs Hosp L2 04/22/23 0256 <Electronically signed by Everton Faulkner DO> Cosigner Signature (if applicable): CC: Dr. Everton Faulkner DO; Dr. Marvin Sheets MD~ Signed [facility] Work Phone: 1(407) 719-397809-20-2023 Procedure [facility] 04-21-2023 Progress note Author Tejas Genao [facility] April 21, 2023 8:41am Note Date/Time April 21, 2023 8:41am [facility] Medical Records Department [address] [place] [address] Progress Note - Surgery 04/21/23 0839 MR#: [id number] Acct: [id number] Name: MAYUR WORTHINGTON Rep #:[id number] : 1985 37 From: Tejas perez MD PCP: Dr. Marvin Sheets MD Status:AD M IN Location: MS3 [facility] Subjective Subjective Patient reports that he went home and then started throwing up Objective Data Objective Data Vital Signs: Vital Signs Temp Pulse Resp BP Pulse Ox O2 Del Method 99.3 F H 112 H 16 135/87 H 91 Room Air 04/21/23 07:41 04/21/23 07:41 04/21/23 07:41 04/21/23 07:41 04/21/23 07:41 04/21/23 07:41 Oxygen Delivery Method Room Air Weight: 316 lb 12.868 oz Body Mass Index (BMI) 40.6 Intake & Output: Intake and Output for Last 24 Hours 04/19/23 04/20/23 04/21/23 23:59 23:59 23:59 Intake Total 1000 / 1000 Output Total 1000 / 1000 Balance 0 / 0 Lab / Micro Data 04/21/23 02:55 04/21/23 02:55 Labs: Laboratory Results - last 24 hr 04/21/23 02:55: WBC 13.1 H, RBC 6.25 H, Hgb 16.2, Hct 49.9, MCV 79.8 L, MCH 25.9L, MCHC 32.5, RDW Std Deviation 43.9, RDW Coeff of Kiet 16.1 H, Plt Count 204, MPV 10.7, Immature Gran % (Auto) 0.700, Neut % (Auto) 81.3 H, Lymph % (Auto) 7.3L, [place] % (Auto) 10.1 H, Eos % (Auto) 0.1, Baso % (Auto) 0.5, Absolute Neuts (auto) 10.6 H, Absolute Lymphs (auto) 0.95, Nucleated RBC % 0, Sodium 134 L, Potassium 3.7, Chloride 99, Carbon Dioxide 29.0, Anion Gap 6, BUN 18, Creatinine1.03, Estim Creat Clear Calc 116.38, Est GFR (MDRD) Af Amer 105, Est GFR (MDRD) Non-Af 87, BUN/Creatinine Ratio 17.5, Glucose 162 H, Calcium 8.8, Total Bilirubin 1.10 H, AST 16, ALT 44, Alkaline Phosphatase 75, Total Protein 8.0, Albumin 3.6, Globulin 4.4 H, Albumin/Globulin Ratio 0.8 L, Lipase 59 04/21/23 04:18: Lactic Acid 1.0 Radiography Diagnostic Testing: Radiology Impression Abdomen/Pelvis CT 04/21/23 02:47 IMPRESSION: Small bowel obstruction as above with pneumatosis. Bowel ischemia is not excluded. Extensive soft tissue gas of the left anterior abdominal wall, which appears to remain extraperitoneal, although of uncertain source. (Additional history provided, patient is postoperative from recent hernia repair, likely accounting for abdominal wall gas. Wednesday pt had hernia sx with mesh, released yesterday and today unable to keep food down with pain). Critical finding results discussed with Dr. Lynn at 0352 hours eastern time 04/21/2023. However, there is rounded gas containing rim enhancing umbilical 4 cm fluid collection, which may represent abscess versus seroma in this postoperative patient. Inflammatory change extends to the underlying anterior mesentery. Dense patchy left lower lobe airspace disease, to include pneumonia. N.B. : The above Results were Read Back by Tejas Mcdermott MD to Rj Lynn MD, and understanding confirmed on 04/21/2023 03:53:58 (ET). Electronically Signed: Tejas Mcdermott MD at 3:59 EDT , ADDENDUM: 04/21/23 0406 IMPRESSION: Small bowel obstruction as above with pneumatosis. Bowel ischemia is not excluded. Extensive soft tissue gas of the left anterior abdominal wall, which appears to remain extraperitoneal, although of uncertain source. (Additional history provided, patient is postoperative from recent hernia repair, likely accounting for abdominal wall gas. Wednesday pt had hernia sx with mesh, released yesterday and today unable to keep food down with pain). Critical finding results discussed with Dr. Lynn at 0352 hours eastern time 04/21/2023. However, there is rounded gas containing rim enhancing umbilical 4 cm fluid collection, which may represent abscess versus seroma in this postoperative patient. Inflammatory change extends to the underlying anterior mesentery. Dense patchy left lower lobe airspace disease, to include pneumonia. N.B. : The above Results were Read Back by Tejas Mcdermott MD to Rj Lynn MD, and understanding confirmed on 04/21/2023 03:53:58 (ET). Electronically Signed: Tejas Mcdermott MD at 3:59 EDT , KUB X-Ray 04/21/23 05:12 IMPRESSION: Enteric tube tip coils over left upper quadrant gastric lucency, likely proximal stomach. Again noted left lung base airspace disease. Partially imaged dilated small bowel loops, consistent with known bowel obstruction. Electronically Signed: Tejas Mcdermott MD at 7:17 EDT , Physical Exam Const oriented x3 Resp normal respiratory effort Cardio Rate: tachycardic GI soft to palpation Palpation: tender Assessment & Plan Assessment/Plan (1) Small bowel obstruction: PLAN: The patient presents back to the hospital 2 days after ventral hernia repair for an incarcerated small bowel obstructing ventral hernia. At the time of surgery the small bowel was inspected and appeared viable. The patient went home yesterday afternoon and started vomiting. He came back to the emergency room and a CT scan revealed thickened loops of small bowel with a transition point and possible pneumatosis. The white count is elevated and the patient is tachycardic. I will plan to take the patient back to surgery today for exploratory laparoscopy with possible bowel resection to try to resolve the obstruction. I discussed this with him in detail. I discussed the risk of bleeding, infection, need for bowel surgery, need for laparotomy, need for explantation of the mesh with suture repair if there is any spillage of enteric contents. Patient understands the risks and is willing to proceed. I will start him on antibiotics. Tejas Genao MD Pager: [facility] [address] [place] [address], [address] [place] [address] Office: 04/21/23 0841 <Electronically signed by Tejas Genao MD> Cosigner Signature (if applicable): CC: ~ Signed [facility] Work Phone: 1(664) 929-808309-20-2023 History and physical note Author Gabe Badillo [facility] April 21, 2023 6:14am Note Date/Time April 21, 2023 6:10am [facility] Medical Records Department [address] [place] [id number] History & Physical Exam 04/21/23 0603 MR#: [id number] Acct: [id number] Name: MAYUR WORTHINGTON Rep #:[id number] : 1985 37 From: Gabe Aranda PCP: Dr. Marvin Sheets MD Status:AD M IN Location: MS3 [facility] HPI - General General Date of Admission: 04/21/23 Chief Complaint: Postoperative nausea, vomiting, and abdominal pain HPI Narrative MAYUR WORTHINGTON, is a 37 M who presents to [facility] with complaints of nausea, vomiting, and abdominal pain following laparoscopic umbilical hernia repair with mesh on 04/19/[address] Genao. Patient reports that upon arriving home after hospital discharge yesterday he began experiencing the nausea and vomiting that in turn produced significant abdominalpain at his surgical site. He states that he had tolerated some food during hisinpatient stay. He describes his abdominal discomfort as diffuse. Given the symptoms so short after surgery he decided to seek further evaluation. ER evaluation notable for CBC with mild leukocytosis and CT showing possible small bowel obstruction as well as some air tracking along the left rectus and some fluid within patient's prior umbilical hernia defect. [facility] Medical History (Updated 04/21/23 @ 05:[address] Rj Lynn MD) Anxiety Depression Former smoker Hypertension Non-smoker Umbilical hernia Home Medications lisdexamfetamine 70 mg capsule (Vyvanse) 70 mg PO DAILY 12/03/15 [History Last Taken Unknown] albuterol sulfate 90 mcg/actuation aerosol inhaler 2 puff inhalation Q4H PRN shortness of breath 04/17/23 [History Last Taken Unknown] cetirizine 10 mg tablet (24Hour Allergy) 10 mg PO DAILY allergies 04/17/23 [History Last Taken Unknown] fluticasone propionate 50 mcg/actuation nasal spray,suspension 2 spray intranasal DAILY allergies 04/17/23 [History Last Taken Unknown] hydrochlorothiazide 12.5 mg capsule 12.5 mg PO DAILY HTN 04/17/23 [History Last Taken Unknown] lisinopril 10 mg tablet 10 mg PO DAILY 04/17/23 [History Last Taken Unknown] meloxicam 15 mg tablet 15 mg PO DAILY 04/17/23 [History Last Taken Unknown] omeprazole 20 mg capsule,delayed release 20 mg PO DAILY 04/17/23 [History Last Taken Unknown] sertraline 100 mg tablet 100 mg PO DAILY depression 09/16/23 [History Last Taken Unknown] docusate sodium 100 mg capsule 100 mg PO BID 14 days #28 caps 04/20/23 [Rx Last Taken Unknown] oxycodone 5 mg tablet 5 mg PO Q6H PRN PRN Pain Score 4-10 10 days #30 tabs 04/20/23 [Rx Last Taken Unknown] Allergy/AdvReac Type Severity Reaction Status Date / Time latex Allergy Rash Verified 04/21/23 02:36 Surgical History (Updated 04/21/23 @ 05:[address] Rj Lynn MD) History of umbilical hernia repair Social History Smoking Status: Former smoker ROS Gastrointestinal Gastrointestinal: Reports abdominal pain, nausea and vomiting Vital Signs Vital Signs Vital Signs: 04/21/23 02:36 Temperature 97.6 F L Temperature Source Temporal Pulse Rate 120 H Blood Pressure 158/89 H Blood Pressure Mean 112 Pulse Ox 92 Oxygen Delivery Method Room Air Weight Weight: 316 lb 12.868 oz Body Mass Index (BMI) 40.6 Physical Exam Const alert, oriented x3 and well nourished Constitutional Narrative: Mild distress from abdominal discomfort and anxiety General Appearance: cooperative GI GI Narrative: Obese, surgical incisions covered with operative dressings, distended, diffuselytender to palpation Results Lab / Micro Data 04/21/23 02:55 04/21/23 02:55 Labs: Laboratory Results - last 24 hr 04/21/23 02:55: WBC 13.1 H, RBC 6.25 H, Hgb 16.2, Hct 49.9, MCV 79.8 L, MCH 25.9L, MCHC 32.5, RDW Std Deviation 43.9, RDW Coeff of Kiet 16.1 H, Plt Count 204, MPV 10.7, Immature Gran % (Auto) 0.700, Neut % (Auto) 81.3 H, Lymph % (Auto) 7.3L, [place] % (Auto) 10.1 H, Eos % (Auto) 0.1, Baso % (Auto) 0.5, Absolute Neuts (auto) 10.6 H, Absolute Lymphs (auto) 0.95, Nucleated RBC % 0, Sodium 134 L, Potassium 3.7, Chloride 99, Carbon Dioxide 29.0, Anion Gap 6, BUN 18, Creatinine1.03, Estim Creat Clear Calc 116.38, Est GFR (MDRD) Af Amer 105, Est GFR (MDRD) Non-Af 87, BUN/Creatinine Ratio 17.5, Glucose 162 H, Calcium 8.8, Total Bilirubin 1.10 H, AST 16, ALT 44, Alkaline Phosphatase 75, Total Protein 8.0, Albumin 3.6, Globulin 4.4 H, Albumin/Globulin Ratio 0.8 L, Lipase 59 04/21/23 04:18: Lactic Acid 1.0 Radiology Impression Abdomen/Pelvis CT 04/21/23 02:47 IMPRESSION: Small bowel obstruction as above with pneumatosis. Bowel ischemia is not excluded. Extensive soft tissue gas of the left anterior abdominal wall, which appears to remain extraperitoneal, although of uncertain source. (Additional history provided, patient is postoperative from recent hernia repair, likely accounting for abdominal wall gas. Wednesday pt had hernia sx with mesh, released yesterday and today unable to keep food down with pain). Critical finding results discussed with Dr. Lynn at 0352 hours eastern time 04/21/2023. However, there is rounded gas containing rim enhancing umbilical 4 cm fluid collection, which may represent abscess versus seroma in this postoperative patient. Inflammatory change extends to the underlying anterior mesentery. Dense patchy left lower lobe airspace disease, to include pneumonia. N.B. : The above Results were Read Back by Tejas Mcdermott MD to Rj Lynn MD, and understanding confirmed on 04/21/2023 03:53:58 (ET). Electronically Signed: Tejas Mcdermott MD at 3:59 EDT , ADDENDUM: 04/21/23 0403 IMPRESSION: Small bowel obstruction as above with pneumatosis. Bowel ischemia is not excluded. Extensive soft tissue gas of the left anterior abdominal wall, which appears to remain extraperitoneal, although of uncertain source. (Additional history provided, patient is postoperative from recent hernia repair, likely accounting for abdominal wall gas. Wednesday pt had hernia sx with mesh, released yesterday and today unable to keep food down with pain). Critical finding results discussed with Dr. Lynn at 0352 hours eastern time 04/21/2023. However, there is rounded gas containing rim enhancing umbilical 4 cm fluid collection, which may represent abscess versus seroma in this postoperative patient. Inflammatory change extends to the underlying anterior mesentery. Dense patchy left lower lobe airspace disease, to include pneumonia. N.B. : The above Results were Read Back by Tejas Mcdermott MD to Rj Lynn MD, and understanding confirmed on 04/21/2023 03:53:58 (ET). Electronically Signed: Tejas Mcdermott MD at 3:59 EDT , Assessment & Plan Assessment/Plan (1) Post-operative nausea and vomiting: (2) Small bowel obstruction: (3) History of umbilical hernia repair: PLAN: Plan This is a 37-year-old male 2 days status post laparoscopic umbilical hernia repair with mesh placement by Dr. Genao who presents with signs and symptoms of a postoperative small bowel obstruction. It is noted that patient had a small bowel incarceration that was manually reduced prior to his hernia repair, but the segment of involved bowel was reportedly closely scrutinized at the time of the hernia operation and determined to be viable. Based on patient's exam without peritoneal signs, I believe a conservative course is mostappropriate. It is possible he is manifesting a ileus rather than a small bowelobstruction. Regardless, I have requested placement of a nasogastric tube with emergency medicine. Thereafter patient will be admitted to the general surgery service for resuscitative fluids and ongoing management. Dr. Genao will beinformed of patient's return. Charges/Coding Visit Charges Inpatient E&M: 84723 Init Hosp L2 04/21/23 0614 <Electronically signed by Gabe Badillo MD> Cosigner Signature (if applicable): CC: Dr. Marvin Sheets MD; Dr. Gabe Badillo MD~ Signed [facility] Work Phone: 1(225) 338-300009-20-2023 Discharge summary Author Rj Lynn [facility] April 21, 2023 6:06am Note Date/Time April 21, 2023 2:55am [facility] Medical Records Department [address] [place] [address] Emergency Department Summary 04/21/23 MR#: [id number] Acct: [id number] Name: MAYUR WORTHINGTON Rep #:[id number] : 1985 37 From: Rj Lynn MD PCP: Dr. Marvin Sheets MD Status:AD M IN Location: FL3 [facility] [place] Rj Lynn MD on 04/21/23 at 0606 Depend interpretation of the patient's single view abdominal film after NG tube shows good placement. The NG is also put out a large amount of gastric contents. No visible blood. Surgeon, Dr. Badillo saw the patient in the emergency department. 04/21/23 06<Electronically signed by Rj Lynn MD> Cosigner Signature (if applicable): cc: Dr. Marvin Sheets MD ~* Signed HPI History of Present Illness Chief Complaint: Nausea/Vomiting Informant: patient and family Narrative Narrative: Presents with nausea vomiting and some abdominal discomfort. Patient was recently admitted for nausea vomiting thought to be related to eating fair food. However, he had an umbilical hernia on exam. This was able to be reduced in the emergency department and he was feeling better. But his scan showed concern for obstruction with transition point near the hernia. He was admitted. He had surgery on Wednesday para the hernia. After that he did eat and drink. He was moving his bowels. But he was getting Zofran. He went home and he states ever since being at home he has nausea and vomiting. He could notkeep the Zofran down. He has felt hot but no fever. He states he has some discomfort but it is more generalized in the abdomen and not focal. He is not having chest pain or trouble breathing. He has not moved his bowels since beingat home. He is not passing gas right now. He states he does hear/feel borborygmi usually right before vomiting but not at other times. [facility] Medical History (Updated 04/21/23 @ 05:[address] Rj Lynn MD) Anxiety Depression Former smoker Hypertension Non-smoker Umbilical hernia Home Medications lisdexamfetamine 70 mg capsule (Vyvanse) 70 mg PO DAILY 12/03/15 [History Last Taken Unknown] albuterol sulfate 90 mcg/actuation aerosol inhaler 2 puff inhalation Q4H PRN shortness of breath 04/17/23 [History Last Taken Unknown] cetirizine 10 mg tablet (24Hour Allergy) 10 mg PO DAILY allergies 04/17/23 [History Last Taken Unknown] fluticasone propionate 50 mcg/actuation nasal spray,suspension 2 spray intranasal DAILY allergies 04/17/23 [History Last Taken Unknown] hydrochlorothiazide 12.5 mg capsule 12.5 mg PO DAILY HTN 04/17/23 [History Last Taken Unknown] lisinopril 10 mg tablet 10 mg PO DAILY 04/17/23 [History Last Taken Unknown] meloxicam 15 mg tablet 15 mg PO DAILY 04/17/23 [History Last Taken Unknown] omeprazole 20 mg capsule,delayed release 20 mg PO DAILY 04/17/23 [History Last Taken Unknown] sertraline 100 mg tablet 100 mg PO DAILY depression 04/17/23 [History Last Taken Unknown] docusate sodium 100 mg capsule 100 mg PO BID 14 days #28 caps 04/20/23 [Rx Last Taken Unknown] oxycodone 5 mg tablet 5 mg PO Q6H PRN PRN Pain Score 4-10 10 days #30 tabs 04/20/23 [Rx Last Taken Unknown] Allergy/AdvReac Type Severity Reaction Status Date / Time latex Allergy Rash Verified 04/21/23 02:36 Surgical History (Updated 04/21/23 @ 05:[address] Rj Lynn MD) History of umbilical hernia repair Social History Smoking Status: Former smoker ROS ROS ED ROS Narrative A complete review of systems was performed and is negative except as documented in the history of present illness. Some specific details below. Constitutional: No recent fevers that was measured but he has felt chilled at times. EYE: No visual complaints or pain. ENT: No difficulty swallowing. No swelling. No pain. GERD. CV: No chest pain or palpitations. Respiratory: No dyspnea. No hemoptysis. No difficulty taking breaths. GI: Please see history of present illness. : No frequency dysuria or hematuria. Still urinating normally. Musculoskeletal: No recent trauma. No pains. Skin: No rash. Nondiaphoretic. Neuro: No weakness or numbness. Endocrine: No polyuria or polydipsia. EXAM Physical Exam Narrative Exam Narrative: CONSTITUTIONAL: Patient is nontoxic in appearance. The patient looks comfortable. HEENT: No notable trauma. Mucous membranes are still moist. EYES: No conjunctival injection. No icterus noted. CARDIOVASCULAR: Regular rate. Regular rhythm. No notable murmur. No JVD. He wasinitially tachycardic but his rate sounds to be in the mid 90s now. RESPIRATORY: No respiratory distress. Breathing is unlabored. No wheezes. No rhonchi. No rales. No pain with a deep breath. GASTROINTESTINAL: Abdomen is obese. It is hard to tell if this is distention. His incisions and port sites look good including the umbilical area. I feel no fullness. But his bowel sounds are very quiet. I am not hearing any while I amlistening for a while. I am getting very mild diffuse nonlocalized tenderness. No rebound or guarding. GENITOURINARY: No tenderness over the bladder. No CVA tenderness. MUSCULOSKELETAL: Atraumatic. NEUROLOGICAL: Patient is alert and appropriate. No focal deficit noted. SKIN: No noted rashes. No diaphoresis. PSYCHIATRIC: Patient is calm. Mood is appropriate. Const Vital Signs: 04/21/23 02:36 Temperature 97.6 F L Temperature Source Temporal Pulse Rate 120 H Blood Pressure 158/89 H Blood Pressure Mean 112 Pulse Ox 92 Oxygen Delivery Method Room Air MDM MDM MDM Narrative Medical decision making narrative: Patient CBC shows a mild elevation of his white count but normal platelets. Patient's electrolytes show minimally low sodium. Glucose is mildly up at 162. No signs of significant dehydration. Patient's liver function test are not showing marked abnormalities. Minimal total bili patient. Lipase is normal at 59. My independent her potation of the CAT scan does shows postsurgical changes in the small bowel obstruction. Radiology does make note of some air in the abdominal wall most likely postoperative and some suspicion of some small foci of air in the small bowel loops. Lactate was added. Lactic acid level is normal at 1.0 Patient was rechecked. His nausea is better but it was still ongoing. He was given Phenergan. We are pending lactate level which will be reported above. Patient's heart rate is now down to about 70 on the monitor after IV fluids. Patient CT did show some increased markings in the left base but he denies beingshort of breath or coughing. He has no chest pain or tightness. All the symptoms are nausea vomiting. He states he gets some discomfort in his abdomen right before he vomits. Discussed case with Dr. Badillo this morning. Plan will be admit the patient. Natalie request an NG which order was placed. He will notify Dr. Genao of the patient's admission this morning. Clinically I doubt this fluid collection in the umbilicus is an abscess. This would be very fast to develop this. I think this is more likely seroma. I am not seeing strong indication for antibiotics. Also, his CT is showing bowel obstruction. But his bowels are very quiet and there certainly may be is component of ileus postoperative also. Lab Data Attestation: I reviewed the patient's lab results. Labs: Laboratory Results - last 24 hr 04/21/23 04/21/23 02:55 04:18 WBC 13.1 H RBC 6.25 H Hgb 16.2 Hct 49.9 MCV 79.8 L MCH 25.9 L MCHC 32.5 RDW Std Deviation 43.9 RDW Coeff of Kiet 16.1 H Plt Count 204 MPV 10.7 Immature Gran % (Auto) 0.700 Neut % (Auto) 81.3 H Lymph % (Auto) 7.3 L [place] % (Auto) 10.1 H Eos % (Auto) 0.1 Baso % (Auto) 0.5 Absolute Neuts (auto) 10.6 H Absolute Lymphs (auto) 0.95 Nucleated RBC % 0 Sodium 134 L Potassium 3.7 Chloride 99 Carbon Dioxide 29.0 Anion Gap 6 BUN 18 Creatinine 1.03 Estim Creat Clear Calc 116.38 Est GFR (MDRD) Af Amer 105 Est GFR (MDRD) Non-Af 87 BUN/Creatinine Ratio 17.5 Glucose 162 H Lactic Acid 1.0 Calcium 8.8 Total Bilirubin 1.10 H AST 16 ALT 44 Alkaline Phosphatase 75 Total Protein 8.0 Albumin 3.6 Globulin 4.4 H Albumin/Globulin Ratio 0.8 L Lipase 59 Radiography Diagnostic Testing: Clinical Impression(s) from Imaging Studies Abdomen/Pelvis CT 04/21/23 02:47 IMPRESSION: Small bowel obstruction as above with pneumatosis. Bowel ischemia is not excluded. Extensive soft tissue gas of the left anterior abdominal wall, which appears to remain extraperitoneal, although of uncertain source. (Additional history provided, patient is postoperative from recent hernia repair, likely accounting for abdominal wall gas. Wednesday pt had hernia sx with mesh, released yesterday and today unable to keep food down with pain). Critical finding results discussed with Dr. Lynn at 0352 hours eastern time 04/21/2023. However, there is rounded gas containing rim enhancing umbilical 4 cm fluid collection, which may represent abscess versus seroma in this postoperative patient. Inflammatory change extends to the underlying anterior mesentery. Dense patchy left lower lobe airspace disease, to include pneumonia. N.B. : The above Results were Read Back by Tejas Mcdermott MD to Rj Lynn MD, and understanding confirmed on 04/21/2023 03:53:58 (ET). Electronically Signed: Tejas Mcdermott MD at 3:59 EDT , ADDENDUM: 04/21/23 0406 IMPRESSION: Small bowel obstruction as above with pneumatosis. Bowel ischemia is not excluded. Extensive soft tissue gas of the left anterior abdominal wall, which appears to remain extraperitoneal, although of uncertain source. (Additional history provided, patient is postoperative from recent hernia repair, likely accounting for abdominal wall gas. Wednesday pt had hernia sx with mesh, released yesterday and today unable to keep food down with pain). Critical finding results discussed with Dr. Lynn at 0352 hours eastern time 04/21/2023. However, there is rounded gas containing rim enhancing umbilical 4 cm fluid collection, which may represent abscess versus seroma in this postoperative patient. Inflammatory change extends to the underlying anterior mesentery. Dense patchy left lower lobe airspace disease, to include pneumonia. N.B. : The above Results were Read Back by Tejas Mcdermott MD to Rj Lynn MD, and understanding confirmed on 04/21/2023 03:53:58 (ET). Electronically Signed: Tejas Mcdermott MD at 3:59 EDT , EKG Initial EKG: Comments: Plan amended interpretation the patient's EKG shows sinus rhythmwith tachycardic rate at 116. I do not see signs of ventricular ectopy. This is a right bundle branch block pattern. There is also slight left anterior fascicular block. No acute ST elevation or depression but there are diffuse changes related to his bundle branch blocks. ND interval is normal. QRS duration and QTc are a bit long. I looked on our system and do not find prior EKG available. 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 TAKE WITH FOOD. sertraline 100 mg tablet 100 mg PO DAILY lisinopril 10 mg tablet 10 mg PO DAILY Patient Comments: TAKE 1 TABLET BY MOUTH EVERY DAY hydrochlorothiazide 12.5 mg capsule 12.5 mg PO DAILY albuterol sulfate 90 mcg/actuation HFA aerosol inhaler 2 puff INHALATION Q4H PRN (Reason: shortness of breath) Patient Comments: INHALE 2 PUFFS BY MOUTH EVERY 6 HOURS NEEDED DIRECTED fluticasone propionate 50 mcg/actuation spray,suspension 2 spray INTRANASAL DAILY Patient Comments: SPRAY 2 SPRAYS INTO EACH NOSTRIL EVERY DAY omeprazole 20 mg capsule,delayed release(DR/EC) 20 mg PO DAILY cetirizine [24Hour Allergy] 10 mg tablet 10 mg PO DAILY docusate sodium 100 mg Capsule 100 mg PO BID 14 Days Qty: 28 0RF oxycodone 5 mg Tablet 5 mg PO Q6H PRN PRN (Reason: Pain Score 4-10) 10 Days Qty: 30 0RF Primary Care Provider: Marvin Sheets Referrals: Marvin Sheets MD [Primary Care Provider] - Disposition Disposition: Acute Care Hospital [facility] What to do if you have Problems For any increased pain, shortness of breath, bleeding, nausea or vomiting, chestpain, or any unexpected problems, contact your Primary Care Provider. Call [facility] ([phone]) or report to the closest Emergency Room. Call 911 if necessary. 04/21/23 0516 <Electronically signed by Rj Lynn MD> Cosigner Signature (if applicable): CC: Dr. Marvin Sheets MD ~ Signed [facility] Work Phone: 1(735) 930-386509-19-2023 Miscellaneous Notes* Telephone Encounter - Amina Ivan Ma - 04/20/2023 3:46 PM EDT Mother was notified The following approved medication requests have been transmitted electronically. Requested Prescriptions Signed Prescriptions Disp Refills ondansetron orally disintegrating (ZOFRAN ODT) 4 mg disintegrating tablet 20 tablet 1 Sig: Take 1 tablet by mouth every 6 hours as needed for nausea/vomiting. Authorizing Provider: MARVIN SHEETS Ma * Telephone Encounter - Marvin Sheest MD - 04/20/2023 3:44 PM EDT OK for Zofran as ordered Marvin Sheets MD * Telephone Encounter - Myrna Liu RN - 04/20/2023 2:14 PM EDT Patient's mother Mary calling with pt in background. Reports pt was discharged today after having hernia surgery. Reports he was supposed to be ordered Zofran but they didn't send him home with anything-thinks they forgot. Reports pt took it while at the hospital and it worked well for him. Mother asking if Dr. Sheets would send script for Zofran to [facility] for patient? Please call mother Mary with update. [phone] Thank you. [facility] Consult note Author Reanna Graham [facility] April 20, 2023 10:49am Note Date/Time April 20, 2023 10:49am [facility] Medical Records Department [address] [place] [address] Counseling Note - Pharmacy 04/20/23 1048 MR#: [id number] Acct: [id number] Name: MAYUR WORTHINGTON Rep #:[id number] 2 : 1985 37 From: Reanna Graham PCP: Dr. Marvin Sheets MD Status:AD M IN Y Location: [facility] [id number] Pharmacy [facility] has performed discharge medication reconciliation and counseling for this patient. The patient was counseled on the following discharge medications and changes in medications for homegoing were reviewed. 1. DOCUSATE 2. OXYCODONE The Reason for Use, instructions for use, and potential side effects were reviewed for all new medications. The patient's questions regarding all of their medications were answered. The patient demonstrated some understanding but would benefit from further education and reinforcement. The patient's discharge medication list was reviewed for discrepancies and discrepancies were resolved. Medications at Discharge Home Medications lisdexamfetamine 70 mg capsule (Vyvanse) 70 mg PO DAILY 12/03/15 albuterol sulfate 90 mcg/actuation aerosol inhaler 2 puff inhalation Q4H PRN shortness of breath 04/17/23 cetirizine 10 mg tablet (24Hour Allergy) 10 mg PO DAILY allergies 04/17/23 fluticasone propionate 50 mcg/actuation nasal spray,suspension 2 spray intranasal DAILY allergies 04/17/23 hydrochlorothiazide 12.5 mg capsule 12.5 mg PO DAILY HTN 04/17/23 lisinopril 10 mg tablet 10 mg PO DAILY 04/17/23 meloxicam 15 mg tablet 15 mg PO DAILY 04/17/23 omeprazole 20 mg capsule,delayed release 20 mg PO DAILY 04/17/23 sertraline 100 mg tablet 100 mg PO DAILY depression 04/17/23 docusate sodium 100 mg capsule 100 mg PO BID 14 days #28 caps 04/20/23 oxycodone 5 mg tablet 5 mg PO Q6H PRN PRN Pain Score 4-10 10 days #30 tabs 04/20/23 04/20/23 1049 <Electronically signed by Reanna Graham > Date _ Reanna Graham Cosigner Signature (if applicable): Date CC: ~ Signed [facility] Work Phone: 1(509) 479-757709-19-2023 Progress note Author Tejas Genao [facility] April 20, 2023 9:08am Note Date/Time April 20, 2023 9:08am [facility] Medical Records Department [address] [place] [id number] Progress Note - Surgery 04/20/23907 MR#: [id number] Acct: [id number] Name: MAYUR WORTHINGTON Rep #:[id number] 1 : 1985 37 From: Tejas perez MD PCP: Dr. Marvin Sheets MD Status:AD M IN Location: [place] [id number] Subjective Subjective Patient seems to be comfortable. He is tolerating a diet. Objective Data Objective Data Vital Signs: Vital Signs Temp Pulse Resp BP Pulse Ox O2 Del Method O2 Flow Rate 98.8 F 97 18 152/80 H 93 Room Air 2 04/20/23 07:49 04/20/23 07:49 04/20/23 08:30 04/20/23 07:49 04/20/23 07:49 04/20/23 07:49 04/20/23 05:17 Oxygen Flow Rate (L/min) 2 Oxygen Delivery Method Room Air Weight: 380 lb 15.34 oz Body Mass Index (BMI) 48.9 Intake & Output: Intake and Output for Last 24 Hours 04/18/23 04/19/23 04/20/23 23:59 23:59 23:59 Intake Total 3408 / 3658 1258.5 / 1258.5 Output Total 250 / 250 Balance 3408 / 3658 1008.5 / 1008.5 Medical Nutrition Assessment Dietitian: Malnutrition Criteria Met Start: 04/19/23 13:20 Freq: Status: Active Protocol: Document 04/19/23 13:20 SLA (Rec: 04/19/23 13:20 SLA Desktop) Nutrition Malnutrition Evidence of Malnutrition Exists Yes Malnutrition (severe): Acute Illness/Injury Evidenced By Suboptimal Energy Intake ( Severe),Weight Loss (Severe) Clinical Problem Acute Disease or Injury Related Malnutrition Etiology related to issues w/ abd pain, nausea and vomiting causing inadequate energy intake Signs/Symptoms as evidenced by 2.6% unplanned wt loss and po intake meeting <75% of est 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 Recommendation Dietitian Recommendations/Changes As medically able, rec CRISTELA to Regular No Added Salt d/t pmhx Lab / Micro Data 04/19/23 10:40 04/19/23 10:40 Labs: Laboratory Results - last 24 hr 04/19/23 10:40: WBC 9.4, RBC 5.63, Hgb 14.9, Hct 45.7, MCV 81.2, MCH 26.5 L, MCHC 32.6 D, RDW Std Deviation 45.7 H, RDW Coeff of Kiet 15.5 H, Plt Count 153, MPV 9.6, Immature Gran % (Auto) 0.200, Neut % (Auto) 72.2 H, Lymph % (Auto) 9.4 L, [place] % (Auto) 14.7 H, Eos % (Auto) 3.1, Baso % (Auto) 0.4, Absolute Neuts (auto) 6.8, Absolute Lymphs (auto) 0.88, Nucleated RBC % 0, Sodium 141, Potassium 3.3 L, Chloride 107, Carbon Dioxide 28.0, Anion Gap 6, BUN 20 H, Creatinine 0.71, Estim Creat Clear Calc 168.84, Est GFR (MDRD) Af Amer 163, Est GFR (MDRD) Non-Af 135, BUN/Creatinine Ratio 28.3 H, Glucose 123 H, Calcium 8.0 L Physical Exam Const oriented x3 and no apparent distress Resp normal respiratory effort GI soft to palpation Palpation: tender Assessment & Plan Assessment/Plan (1) Ventral hernia with obstruction but no gangrene: PLAN: Patient had ventral hernia repair with mesh yesterday. He is tolerating adiet. He may go home today. Tejas Genao MD Pager: [facility] [address] [place] [address] Office: 04/20/23 0984 <Electronically signed by Tejas Genao MD> Cosigner Signature (if applicable): CC: ~ Signed [facility] Work Phone: 1(231) 321-625709-19-2023 Discharge summary Author Rosie Lama [facility] April 20, 2023 7:48am Note Date/Time April 20, 2023 7:48am [facility] Medical Records Department [address] [place] [address] Discharge Summary 04/20/23 0741 MR#: [id number] Acct: [id number] Name: MAYUR WORTHINGTON Rep #:[id number] 3 : 1985 37 From: Rosie RUIZC PCP: Dr. Marvin Sheets MD Status:AD IN Location: [facility] [id number] Providers Date of Admission: 04/17/23 Primary Care Physician: Dr. Marvin Sheets MD Reason For Visit: VENTRAL HERNIA WITH OBSTRUCTION Diagnosis Discharge Diagnosis (1) Ventral hernia with obstruction but no gangrene: Status: Acute Code(s): K43.6 - Other and unspecified ventral hernia with obstruction, without gangrene Medications at Discharge Home Medications lisdexamfetamine 70 mg capsule (Vyvanse) 70 mg PO DAILY 12/03/15 albuterol sulfate 90 mcg/actuation aerosol inhaler 2 puff inhalation Q4H PRN shortness of breath 04/17/23 cetirizine 10 mg tablet (24Hour Allergy) 10 mg PO DAILY allergies 04/17/23 fluticasone propionate 50 mcg/actuation nasal spray,suspension 2 spray intranasal DAILY allergies 04/17/23 hydrochlorothiazide 12.5 mg capsule 12.5 mg PO DAILY HTN 04/17/23 lisinopril 10 mg tablet 10 mg PO DAILY 04/17/23 meloxicam 15 mg tablet 15 mg PO DAILY 04/17/23 omeprazole 20 mg capsule,delayed release 20 mg PO DAILY 04/17/23 sertraline 100 mg tablet 100 mg PO DAILY depression 04/17/23 docusate sodium 100 mg capsule 100 mg PO BID 14 days #28 caps 04/20/23 oxycodone 5 mg tablet 5 mg PO Q6H PRN PRN Pain Score 4-10 10 days #30 tabs 04/20/23 Hospital Course Operations herniorrhaphy (Laparoscopic hybrid ventral hernia repair with mesh) Summary of Care Provided Minutes Spent on Discharge: 25 Hospital Course: Patient is a 37 y/o M who came to the ED with acute onset of abdominal pain, nausea, and vomiting. Patient had a known ventral hernia. A CT scan was obtaineddemonstrating dilated fluid-filled loops of bowel consistent with mechanical obstruction. Umbilical hernia was also noted containing a loop of bowel which appeared to be the point of obstruction. Dr. Genao performed a Laparoscopichybrid ventral hernia repair with mesh on 04/19/23. Patient tolerated the procedure well. Patient had an uneventful hospitalization. Upon discharge, he denies nausea, vomiting, fever. He is tolerating a regular diet. He notes a moderate amount of abdominal pain/discomfort with positional movement. He is able to urinate well. He voices readiness to be discharged to home. Physical Exam Const alert, oriented x3 and no apparent distress GI GI Narrative: Abdomen- incisions intact. At the umbilical incision there appears to be minimalamount of bright red bloody drainage. The dressing was changed. Dry gauze and tape were applied to the incision. Abdomen is soft. Tenderness at the incision sites. Discomfort throughout the entire abdomen Inspection: central obesity Medical Records Data Medical Nutrition Assessment Dietitian: Malnutrition Criteria Met Start: 04/19/23 13:20 Freq: Status: Active Protocol: Document 04/19/23 13:20 [facility] (Rec: 04/19/23 13:20 [facility] Desktop) Nutrition Malnutrition Evidence of Malnutrition Exists Yes Malnutrition (severe): Acute Illness/Injury Evidenced By Suboptimal Energy Intake ( Severe),Weight Loss (Severe) Clinical Problem Acute Disease or Injury Related Malnutrition Etiology related to issues w/ abd pain, nausea and vomiting causing inadequate energy intake Signs/Symptoms as evidenced by 2.6% unplanned wt loss and po intake meeting <75% of est 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 Recommendation Dietitian Recommendations/Changes As medically able, rec CRISTELA to Regular No Added Salt d/t pmhx Weight / BMI Weight Weight: 380 lb 15.34 oz Body Mass Index (BMI) 48.9 ABG / Lab / Microbiology Data 04/19/23 10:40 04/19/23 10:40 Laboratory: Laboratory Results - last 24 hr 04/19/23 10:40: WBC 9.4, RBC 5.63, Hgb 14.9, Hct 45.7, MCV 81.2, MCH 26.5 L, MCHC 32.6 D, RDW Std Deviation 45.7 H, RDW Coeff of Kiet 15.5 H, Plt Count 153, MPV 9.6, Immature Gran % (Auto) 0.200, Neut % (Auto) 72.2 H, Lymph % (Auto) 9.4 L, [place] % (Auto) 14.7 H, Eos % (Auto) 3.1, Baso % (Auto) 0.4, Absolute Neuts (auto) 6.8, Absolute Lymphs (auto) 0.88, Nucleated RBC % 0, Sodium 141, Potassium 3.3 L, Chloride 107, Carbon Dioxide 28.0, Anion Gap 6, BUN 20 H, Creatinine 0.71, Estim Creat Clear Calc 168.84, Est GFR (MDRD) Af Amer 163, Est GFR (MDRD) Non-Af 135, BUN/Creatinine Ratio 28.3 H, Glucose 123 H, Calcium 8.0 L D/C Instructions Discharge Diet: Light diet - advance as tolerated Call your doctor if your incision/area has: Continuous Slow Oozing, Sudden Increased Bleeding, Increased Pain/ Swelling, Increased Redness, Foul Smelling Discharge and Swelling at the incision site Call your doctor if you observe: Fever of 101 or Higher Suture Line Care: Avoid Pulling/Pushing and Avoid Pinching/Bending Cleanse incision/area with: Soap & Water Please Follow Up With: Tejas Genao MD When: Please call our office to schedule an appointment for 2 weeks from your surgery date. Our office number is [phone] Meaningful Use Info Meaningful Use Diagnoses (Choose all that apply): None applicable Discharge Plan Admission Admit Date/Time: 04/17/23 16:45 Primary Reason for Your Visit: Incarcerated ventral umbilical hernia with obstruction Attending Provider: Tejas Genao Primary Care Provider: Marvin Sheets Instructions Additional Instructions / Restrictions: Diet ? Start light with soups and soft bland foods. You may advance diet as tolerated. Activity ? You may drive in 3-5 days but not while taking narcotic pain medication. ? Encourage walking. You may go up steps, one at a time. ? Do not swim or use hot tubs for 2 weeks. ? For comfort, you may use warm compresses or ice as needed for 15-20 minutes amador time. . You will need to brace your abdomen, with your arms or a pillow, when you go to cough or sneeze. This will cause some discomfort. Lifting ? You may lift up to 15 pounds for 4 weeks. Dressings/Incision ? You may shower OVER your plastic dressings ? Do NOT tub bathe for 1 week . You will need to change the dressing at the belly button incision daily ? Leave other plastic dressings on for 3 days. ? When plastic dressings are removed, you will find steri strips. It is okay to continue showering with them in place, pat them dry. ? You may remove steri-strips after 1 week. We recommend getting them soaking wet for easier removal. Medications ? Anesthesia used during surgery and pain medications may cause constipation. I recommend initiating on the day of surgery a fiber supplement like, Metamucil, Citrucel, FiberCon, Benefiber, or a generic form of these medications. 1 heapingtablespoon in water daily. You may continue to utilize any bowel regimen or orallaxatives that you routinely take. ? As long as you are not intolerant to Tylenol, acetaminophen, ibuprofen, Motrin, Advil, Aleve, or similar medications, I would recommend transitioning tothese [id number] medicines as soon as possible instead of continued use ofnarcotic pain medication. Follow up ? You should call [facility] soon after surgery, at [phone] option 1 to make a follow up appointment 2 weeks after your surgery. You will direct any [place] paperwork or other work-related paperwork to our office. Discharge Orders/Prescriptions Prescriptions: New docusate sodium 100 mg Capsule 100 mg PO BID 14 Days Qty: 28 0RF oxycodone 5 mg Tablet 5 mg PO Q6H PRN PRN (Reason: Pain Score 4-10) 10 Days Qty: 30 0RF Continued lisdexamfetamine [Vyvanse] 70 MG capsule 70 mg PO DAILY meloxicam 15 mg tablet 15 mg PO DAILY Patient Comments: TAKE 1 TABLET BY MOUTH ONCE DAILY. TAKE WITH FOOD. sertraline 100 mg tablet 100 mg PO DAILY lisinopril 10 mg tablet 10 mg PO DAILY Patient Comments: TAKE 1 TABLET BY MOUTH EVERY DAY hydrochlorothiazide 12.5 mg capsule 12.5 mg PO DAILY albuterol sulfate 90 mcg/actuation HFA aerosol inhaler 2 puff INHALATION Q4H PRN (Reason: shortness of breath) Patient Comments: INHALE 2 PUFFS BY MOUTH EVERY 6 HOURS NEEDED DIRECTED fluticasone propionate 50 mcg/actuation spray,suspension 2 spray INTRANASAL DAILY Patient Comments: SPRAY 2 SPRAYS INTO EACH NOSTRIL EVERY DAY omeprazole 20 mg capsule,delayed release(DR/EC) 20 mg PO DAILY cetirizine [24Hour Allergy] 10 mg tablet 10 mg PO DAILY Referrals / Follow Up: Tejas Genao MD [Med Staff - Active Staff] - (Please call our office to follow-up 2 weeks from your surgery) Marvin Sheets MD [Primary Care Provider] - Disposition Disposition (needs filled in before D/C Order can be placed): Home, Self Care 04/20/23 0748 <Electronically signed by Rosie MANRIQUEZ PA-C> Cosigner Signature (if applicable): CC: ALEX Lama; Dr. Marvin Sheets MD~ Signed [facility] Work Phone: 1(236) 427-173609-19-2023 Discharge summary Author Rosie Lama [facility] April 20, 2023 7:40am Note Date/Time April 20, 2023 7:40am [facility] Medical Records Department [address] [place] [address] Instructions for Home/Discharge Instructions 04/20/23 0738 MR#: [id number] Acct: [id number] Name: MAYUR WORTHINGTON Rep #:[id number] : 1985 37 From: Rosie MANRIQUEZ PA-C PCP: Dr. Marvin Sheets MD Status:AD M IN Discharge Instructions Diet Discharge Diet: Light diet - advance as tolerated Activity Discharge Activity: May Not Drive (3-5 days or while taking narcotic pain medication) and May Shower (starting tomorrow) Lifting Restrictions: 15 pounds for 4 weeks Dressing / Incision Call your doctor if your incision/area has: Continuous Slow Oozing, Sudden Increased Bleeding, Increased Pain/ Swelling, Increased Redness, Foul Smelling Discharge and Swelling at the incision site Call your doctor if you observe: Fever of 101 or Higher Suture Line Care: Avoid Pulling/Pushing and Avoid Pinching/Bending Change Dressing in: 1 day Cleanse incision/area with: Soap & Water Follow Up Care Please Follow Up With: Tejas Genao MD When: Please call our office to schedule an appointment for 2 weeks from your surgery date. Our office number is [phone] Test Results: Test results from this visit will be discussed in further detail at your follow- up appointment, if applicable. Discharge Plan Admission Admit Date/Time: 04/17/23 16:45 Primary Reason for Your Visit: Incarcerated ventral umbilical hernia with obstruction Attending Provider: Tejas Genao Primary Care Provider: Marvin Sheets Instructions Additional Instructions / Restrictions: Diet ? Start light with soups and soft bland foods. You may advance diet as tolerated. Activity ? You may drive in 3-5 days but not while taking narcotic pain medication. ? Encourage walking. You may go up steps, one at a time. ? Do not swim or use hot tubs for 2 weeks. ? For comfort, you may use warm compresses or ice as needed for 15-20 minutes amador time. . You will need to brace your abdomen, with your arms or a pillow, when you go to cough or sneeze. This will cause some discomfort. Lifting ? You may lift up to 15 pounds for 4 weeks. Dressings/Incision ? You may shower OVER your plastic dressings ? Do NOT tub bathe for 1 week . You will need to change the dressing at the belly button incision daily ? Leave other plastic dressings on for 3 days. ? When plastic dressings are removed, you will find steri strips. It is okay to continue showering with them in place, pat them dry. ? You may remove steri-strips after 1 week. We recommend getting them soaking wet for easier removal. Medications ? Anesthesia used during surgery and pain medications may cause constipation. I recommend initiating on the day of surgery a fiber supplement like, Metamucil, Citrucel, FiberCon, Benefiber, or a generic form of these medications. 1 heapingtablespoon in water daily. You may continue to utilize any bowel regimen or orallaxatives that you routinely take. ? As long as you are not intolerant to Tylenol, acetaminophen, ibuprofen, Motrin, Advil, Aleve, or similar medications, I would recommend transitioning tothese [id number] medicines as soon as possible instead of continued use ofnarcotic pain medication. Follow up ? You should call [facility] soon after surgery, at [phone] option 1 to make a follow up appointment 2 weeks after your surgery. You will direct any [place] paperwork or other work-related paperwork to our office. Discharge Orders/Prescriptions Prescriptions: New docusate sodium 100 mg Capsule 100 mg PO BID 14 Days Qty: 28 0RF oxycodone 5 mg Tablet 5 mg PO Q6H PRN PRN (Reason: Pain Score 4-10) 10 Days Qty: 30 0RF Continued lisdexamfetamine [Vyvanse] 70 MG capsule 70 mg PO DAILY meloxicam 15 mg tablet 15 mg PO DAILY Patient Comments: TAKE 1 TABLET BY MOUTH ONCE DAILY. TAKE WITH FOOD. sertraline 100 mg tablet 100 mg PO DAILY lisinopril 10 mg tablet 10 mg PO DAILY Patient Comments: TAKE 1 TABLET BY MOUTH EVERY DAY hydrochlorothiazide 12.5 mg capsule 12.5 mg PO DAILY albuterol sulfate 90 mcg/actuation HFA aerosol inhaler 2 puff INHALATION Q4H PRN (Reason: shortness of breath) Patient Comments: INHALE 2 PUFFS BY MOUTH EVERY 6 HOURS NEEDED DIRECTED fluticasone propionate 50 mcg/actuation spray,suspension 2 spray INTRANASAL DAILY Patient Comments: SPRAY 2 SPRAYS INTO EACH NOSTRIL EVERY DAY omeprazole 20 mg capsule,delayed release(DR/EC) 20 mg PO DAILY cetirizine [24Hour Allergy] 10 mg tablet 10 mg PO DAILY Referrals / Follow Up: Tejas Genao MD [Med Staff - Active Staff] - (Please call our office to follow-up 2 weeks from your surgery) Marvin Sheets MD [Primary Care Provider] - Disposition Disposition (needs filled in before D/C Order can be placed): Home, Self Care 04/20/23 9168<Electronically signed by Rosie MANRIQUEZ PA-C>Rosie MANRIQUEZ PA-C CC: Dr. Marvin Sheets MD ~ Signed [facility] Work Phone: 1(350) 401-180109-18-2023 Procedure [facility] 04-19-2023 Progress note Author Tejas Genao [facility] April 19, 2023 8:20am Note Date/Time April 19, 2023 8:20am [facility] Medical Records Department [address] [facility] [place] [address] Progress Note - Surgery 04/19/23818 MR#: [id number] Acct: [id number] Name: MAYUR WORTHINGTON Rep #:[id number] : 1985 37 From: Tejas perez MD PCP: Dr. Marvin Sheets MD Status:AD M IN Location: [place] [id number] Subjective Subjective Patient reports that he started having vomiting last night and pushed his herniaback in and now he is feeling back to baseline. Objective Data Objective Data Vital Signs: Vital Signs Temp Pulse Resp BP Pulse Ox O2 Del Method 98.7 F 102 H 18 158/76 H 96 Room Air 04/19/23 02:15 04/19/23 02:15 04/19/23 02:15 04/19/23 02:15 04/19/23 02:15 04/19/23 02:15 Oxygen Delivery Method Room Air Weight: 380 lb 15.34 oz Body Mass Index (BMI) 48.9 Intake & Output: Intake and Output for Last 24 Hours 04/17/23 04/18/23 04/19/23 23:59 23:59 23:59 Intake Total 1000 / 1000 3408 / 3658 250 / 250 Output Total 250 / 250 Balance 750 / 750 3408 / 3658 250 / 250 Lab / Micro Data 04/18/23 07:01 04/18/23 07:01 Physical Exam Const oriented x3 and no apparent distress Resp normal respiratory effort GI soft to palpation Assessment & Plan Assessment/Plan (1) Ventral hernia with obstruction but no gangrene: PLAN: The patient did have some vomiting last night and reports that the hernia came back out. He was able to push it back in. I plan for laparoscopic ventralhernia repair with mesh this afternoon. I discussed the surgery with him in detail. I discussed the risks including but limited to bleeding, infection, injury to underlying organs, hernia recurrence. I also discussed mesh placementwith him in detail. Patient understands and is willing to proceed. Tejas Genao MD Pager: [facility] [address] [facility], [address] [place] [address] Office: 04/19/23819 <Electronically signed by Tejas Genao MD> Cosigner Signature (if applicable): CC: ~ Signed [facility] Work Phone: 1(707) 872-558609-17-2023 Progress note Author Tejas Genao [facility] April 18, 2023 9:28am Note Date/Time April 18, 2023 9:28am [facility] Medical Records Department [address] [place] [address] Progress Note - Surgery 04/18/23926 MR#: [id number] Acct: [id number] Name: MAYUR WORTHINGTON Rep #:[id number] : 1985 37 From: Tejas perez MD PCP: Dr. Marvin Sheets MD Status:AD M IN Location: [facility] XX646-6 Subjective Subjective Patient reports having several bowel movements. He is not having pain unless his hernia is palpated. Objective Data Objective Data Vital Signs: Vital Signs Temp Pulse Resp BP Pulse Ox O2 Del Method 98.7 F 99 16 144/89 H 92 Room Air 04/18/23 08:52 04/18/23 08:52 04/18/23 08:52 04/18/23 08:52 04/18/23 08:52 04/18/23 08:52 Oxygen Delivery Method Room Air Weight: 381 lb Body Mass Index (BMI) 48.9 Intake & Output: Intake and Output for Last 24 Hours 04/16/23 04/17/23 04/18/23 23:59 23:59 23:59 Intake Total 1000 / 1000 1000 / 1000 Output Total 250 / 250 Balance 750 / 750 1000 / 1000 Lab / Micro Data 04/18/23 07:01 04/18/23 07:01 Labs: Laboratory Results - last 24 hr 04/17/23 15:35: WBC 12.8 H, RBC 6.48 H, Hgb 17.3 H, Hct 51.9, MCV 80.1, MCH 26.7L, MCHC 33.3, RDW Std Deviation 45.0 H, RDW Coeff of Kiet 16.3 H, Plt Count 202, MPV 10.2, Immature Gran % (Auto) 0.300, Neut % (Auto) 82.5 H, Lymph % (Auto) 5.5L, [place] % (Auto) 10.9 H, Eos % (Auto) 0.5, Baso % (Auto) 0.3, Absolute Neuts (auto) 10.6 H, Absolute Lymphs (auto) 0.70 L, Nucleated RBC % 0, Sodium 137, Potassium 3.5, Chloride 101, Carbon Dioxide 29.0, Anion Gap 7, BUN 27 H, Creatinine 1.15, Estim Creat Clear Calc 104.24, Est GFR (MDRD) Af Amer 93, Est GFR (MDRD) Non-Af 77, BUN/Creatinine Ratio 23.5 H, Glucose 142 H, Lactic Acid 1.4, Calcium 9.4, Total Bilirubin 1.20 H, AST 41 H, ALT 86 H, Alkaline Phosphatase 103, Total Protein 8.2, Albumin 4.2, Globulin 4.0, Albumin/Globulin Ratio 1.0, Lipase 27 04/17/23 18:55: Urine Color Chelita, Urine Clarity Sl. Cloudy, Urine pH 5.0, Ur Specific Wesley 1.015, Urine Protein 30 H, Urine Glucose (UA) Normal, Urine Ketones 5 H, Urine Occult Blood 10 H, Urine Nitrite Negative, Urine Bilirubin 3 H, Urine Urobilinogen 4 H, Ur Leukocyte Esterase 25 H, Urine RBC 0-5 SEEN, UrineWBC 0-5 SEEN, Ur Squamous Epith Cells 0-5 SEEN, Urine Bacteria 0 SEEN, Urine Mucus 0 SEEN 04/18/23 07:01: WBC 7.6, RBC 5.87, Hgb 15.0, Hct 48.9, MCV 83.3, MCH 25.6 L, MCHC 30.7 L D, RDW Std Deviation 48.1 H, RDW Coeff of Kiet 15.9 H, Plt Count 162,MPV 10.6, Immature Gran % (Auto) 0.400, Neut % (Auto) 64.0, Lymph % (Auto) 15.8 L, [place] % (Auto) 16.6 H, Eos % (Auto) 2.5, Baso % (Auto) 0.7, Absolute Neuts (auto) 4.9, Absolute Lymphs (auto) 1.20, Nucleated RBC % 0, Sodium 138, Potassium 3.1 L, Chloride 106, Carbon Dioxide 26.0, Anion Gap 6, BUN 27 H, Creatinine 0.92, Estim Creat Clear Calc 130.30, Est GFR (MDRD) Af Amer 120, Est GFR (MDRD) Non-Af 99, BUN/Creatinine Ratio 29.3 H, Glucose 118 H, Calcium 8.0 L Radiography Diagnostic Testing: Radiology Impression Abdomen/Pelvis CT 04/17/23 15:09 IMPRESSION: Dilated gas and fluid-filled loops of small bowel proximally with normal caliber bowel loops distally compatible with mechanical obstruction. There is an umbilical hernia which contains a loop of bowel and appears to be the point of obstruction. Electronically Signed: Tommy [place] MD at 17:00 EDT , Physical Exam Const oriented x3 and no apparent distress Resp normal respiratory effort GI soft to palpation and non-tender Assessment & Plan Assessment/Plan (1) Ventral hernia with obstruction but no gangrene: PLAN: Patient had small bowel obstruction due to ventral hernia. The hernia is still reduced. I plan on repairing this laparoscopically tomorrow. I will order him a diet today and his home medications and plan for n.p.o. after midnight and surgery tomorrow. Tejas Genao MD Pager: [facility] [address] [place] [address], [address] [place] [address] Office: 04/18/2374 <Electronically signed by Tejas Genao MD> Cosigner Signature (if applicable): CC: ~ Signed [facility] Work Phone: 1([phone]) 608-241109-16-2023 Discharge summary Author Radhika Godman [facility] April 17, 2023 5:17pm Note Date/Time April 17, 2023 3:29pm [facility] Medical Records Department [address] [place] [address] Emergency Department Summary 04/17/23 MR#: [id number] Acct: [id number] Name: MAYUR WORTHINGTON Rep #:[id number] : 1985 37 From: Radhika Ybarra PCP: Dr. Marvin Sheets MD Status:AD M IN Location: [facility] DS389-2 HPI HPI - GI History of Present Illness Chief Complaint: Abd Pain Informant: patient and parent Narrative Narrative: Patient is a 37-year-old male presenting from home for continued abdominal pain,nausea and vomiting. Patient states his symptoms for started 3 [place] Initially they thought it was some type of food poisoning. He has continued to have vomiting. He has had a bowel movement a couple days. He is having diffuse abdominal pain but points more to his umbilical region. Hedoes note that he thinks he has a hernia in that area. He states he just noticed it about a week and a half ago however has been more painful over the past day or so. Denies any blood in his vomit. He states he cannot keep anything down and throws up everything. He notes he has not urinated since yesterday. Denies any fever but does feel clammy. No history of any abdominal surgeries. Has never had a thing like this before. No other complaints or concerns at this time. Notes he is also feeling very anxious and does have a history of anxiety. PFSH PFSH Home Medications lisdexamfetamine 70 mg capsule (Vyvanse) 70 mg PO DAILY 12/03/15 [History Last Taken Unknown] albuterol sulfate 90 mcg/actuation aerosol inhaler 2 puff inhalation Q4H PRN shortness of breath 04/17/23 [History Last Taken Unknown] cetirizine 10 mg tablet (24Hour Allergy) 10 mg PO DAILY allergies 04/17/23 [History Last Taken Unknown] fluticasone propionate 50 mcg/actuation nasal spray,suspension 2 spray intranasal DAILY allergies 04/17/23 [History Last Taken Unknown] hydrochlorothiazide 12.5 mg capsule 12.5 mg PO DAILY HTN 04/17/23 [History Last Taken Unknown] lisinopril 10 mg tablet 10 mg PO DAILY 04/17/23 [History Last Taken Unknown] meloxicam 15 mg tablet 15 mg PO DAILY 04/17/23 [History Last Taken Unknown] omeprazole 20 mg capsule,delayed release 20 mg PO DAILY 04/17/23 [History Last Taken Unknown] sertraline 100 mg tablet 100 mg PO DAILY depression 04/17/23 [History Last Taken Unknown] Allergy/AdvReac Type Severity Reaction Status Date / Time latex Allergy Rash Verified 04/17/23 14:51 Social History Smoking Status: Former smoker ROS ROS ED Constitutional Constitutional ED: Reports other Details: Clammy, not able to keep anything down ; Denies chills or fever(s) Cardiovascular Cardiovascular: Denies chest pain Respiratory/Chest Respiratory/Chest: Denies cough Gastrointestinal Gastrointestinal: Reports abdominal pain, constipation, nausea and vomiting; Denies diarrhea Genitourinary Genitourinary ED: Reports other Details: Decreased urination, denies any testicular pain ; Denies dysuria Musculoskeletal Musculoskeletal: Denies arthralgias or myalgias Integumentary Denies rash Neurologic Neurologic: Denies headache(s) Psychiatric Psychiatric: Reports anxiety EXAM Physical Exam Const Vital Signs: 04/17/23 14:49 04/17/23 16:42 Temperature 96 F L 97 F L Temperature Source Temporal Temporal Pulse Rate 127 H 106 H Respiratory Rate 18 20 H Blood Pressure 168/110 H 142/69 H Blood Pressure Mean 129 93 Pulse Ox 93 92 Oxygen Delivery Method Room Air Room Air Positive well nourished and obese Constitutional Narrative: Uncomfortable appearing Nutritional Appearance: obese HEENT Reports dry mucous membranes Mouth ED: Yes dry mucous membranes Mouth: dry mucous membranes Eyes PERRL and EOMs intact bilaterally General Eye ED: Negative for scleral icterus Neck supple Resp normal respiratory effort and clear to auscultation bilaterally Cardio regular rhythm Rate: tachycardic GI GI Narrative: Patient has a periumbilical hernia just superior and to the left of the umbilicus. It is firm and tender. Does not easily reduce. There is no overlying erythema. Inspection: abdominal distention Auscultation: hypoactive bowel sounds Palpation: soft; Negative for guarding Extremity full ROM General Extremety ED: Negative for edema General Extremity: Negative for edema Neuro moves all extremities Sensorium / Orientation: alert, oriented to person, oriented to place and oriented to time Psych mental status grossly normal Mood & Affect: anxious Skin no wounds Rashes: no rashes MDM MDM MDM Narrative Medical decision making narrative: Patient is evaluated for nausea, vomiting abdominal pain. On arrival he is hypertensive (does have a history of hypertension) and tachycardic. He does appear dehydrated. I am concerned about incarcerated hernia based on physical exam and HPI. We will attempt some pain control, ice over the hernia and try toreduce. If not we will evaluate after CT. At this time he does not have overlying erythema and I have a lower suspicion for strangulated hernia. 1600?patient is reevaluated after medicated. With steady gentle pressure I am able to reduce the hernia. Patient tolerates this reasonably well and has improvement of pain after reduction. We will continue with work-up looking for signs of ischemia, obstruction on CT, pancreatitis, renal insufficiency/dehydration. Patient is a mild leukocytosis does appear to be hemoconcentrated with an elevated hemoglobin and he has a very mild transaminitis on his CMP. Lipase is normal. CT is concerning for mechanical obstruction. Patient continues to havesignificant movement of pain after manual reduction of the hernia. His lactate is normal. Low sufficient for strangulated hernia. Surgical consult is obtained and case is discussed with Dr. Genao. He will admit the patient and plan for laparoscopic hernia repair. Patient agreeable this plan of care. Patient will will continue hydration and symptom control the meantime. Lab Data Labs: Laboratory Results - last 24 hr 04/17/23 15:35 WBC 12.8 H RBC 6.48 H Hgb 17.3 H Hct 51.9 MCV 80.1 MCH 26.7 L MCHC 33.3 RDW Std Deviation 45.0 H RDW Coeff of Kiet 16.3 H Plt Count 202 MPV 10.2 Immature Gran % (Auto) 0.300 Neut % (Auto) 82.5 H Lymph % (Auto) 5.5 L [place] % (Auto) 10.9 H Eos % (Auto) 0.5 Baso % (Auto) 0.3 Absolute Neuts (auto) 10.6 H Absolute Lymphs (auto) 0.70 L Nucleated RBC % 0 Sodium 137 Potassium 3.5 Chloride 101 Carbon Dioxide 29.0 Anion Gap 7 BUN 27 H Creatinine 1.15 Estim Creat Clear Calc 104.24 Est GFR (MDRD) Af Amer 93 Est GFR (MDRD) Non-Af 77 BUN/Creatinine Ratio 23.5 H Glucose 142 H Lactic Acid 1.4 Calcium 9.4 Total Bilirubin 1.20 H AST 41 H ALT 86 H Alkaline Phosphatase 103 Total Protein 8.2 Albumin 4.2 Globulin 4.0 Albumin/Globulin Ratio 1.0 Lipase 27 Radiography Diagnostic Testing: Clinical Impression(s) from Imaging Studies Abdomen/Pelvis CT 04/17/23 15:09 IMPRESSION: Dilated gas and fluid-filled loops of small bowel proximally with normal caliber bowel loops distally compatible with mechanical obstruction. There is an umbilical hernia which contains a loop of bowel and appears to be the point of obstruction. Electronically Signed: Tommy [place] MD at 17:00 EDT , Management Discussion w/another healthcare provider: Pigment Presser Discharge Plan Triage Chief Complaint: Abd Pain ED Provider: Radhika Soria Dx/Rx/DC Orders Clinical Impression: Ventral hernia with obstruction but no gangrene, Acute dehydration Primary Care Provider: Marvin Sheets Disposition Disposition: Acute Care Hospital [facility] What to do if you have Problems For any increased pain, shortness of breath, bleeding, nausea or vomiting, chestpain, or any unexpected problems, contact your Primary Care Provider. Call [facility] ([phone]) or report to the closest Emergency Room. Call 911 if necessary. 04/17/237 <Electronically signed by Radhika Soria DO> Cosigner Signature (if applicable): CC: Dr. Marvin Sheets MD ~ Signed [facility] Work Phone: 1(880) 242-125709-16-2023 History and physical note Author Tejas Genao [facility] April 17, 2023 4:45pm Note Date/Time April 17, 2023 4:45pm [facility] Medical Records Department [address] [place] [address] H&P Exam - Surgical 04/17/23 1643 MR#: [id number] Acct: [id number] Name: MAYUR WORTHINGTON Rep #:[id number] : 1985 37 From: Tejas perez MD PCP: Dr. Marvin Sheets MD Status:RE G ER Location: ED HPI - General HPI Narrative MAYUR WORTHINGTON, is a 37 M who presents with pain and nausea and vomiting. Patient says this started today. Patient says he noted his hernia about a week ago. This is the first time he is noticed it. The emergency room physician reduce his hernia and he reports he is feeling better. He is not nauseous currently. PFSH Home Medications etodolac 300 mg capsule 300 mg PO TIDCM ##30 12/03/15 [Rx Last Taken Unknown] lisdexamfetamine 70 mg capsule (Vyvanse) 70 mg PO DAILY 12/03/15 [History Last Taken Unknown] prednisone 10 mg tablet 10 mg PO DAILY 12/03/15 [History Last Taken Unknown] Allergy/AdvReac Type Severity Reaction Status Date / Time latex Allergy Rash Verified 04/17/23 14:51 Social History Smoking Status: Former smoker ROS Constitutional Constitutional: Reports anorexia; Denies fatigue or fever(s) Eyes Eyes: Denies blurry vision ENT HEENT: Denies abnormal hearing Cardiovascular Cardiovascular: Denies chest pain Respiratory/Chest Respiratory/Chest: Denies cough or dyspnea Gastrointestinal Gastrointestinal: Reports abdominal pain, nausea and vomiting; Denies coffee ground emesis or rectal bleeding Genitourinary Genitourinary: Denies difficulty urinating Musculoskeletal Musculoskeletal: Denies abnormal gait Integumentary Integumentary: Denies jaundice Neurologic Neurologic: Denies dizziness Vital Signs Vital Signs Vital Signs: 04/17/23 14:49 Temperature 96 F L Temperature Source Temporal Pulse Rate 127 H Respiratory Rate 18 Blood Pressure 168/110 H Blood Pressure Mean 129 Pulse Ox 93 Oxygen Delivery Method Room Air Weight Weight: 391 lb Body Mass Index (BMI) 50.2 Physical Exam Const oriented x3 and no apparent distress Resp normal respiratory effort Cardio regular rhythm Rate: tachycardic GI soft to palpation GI Narrative: Patient's abdomen is soft and obese. He has a hernia at the umbilicus which does not contain any bowel currently. He is tender at the hernia but the rest the abdomen is nontender. Results Lab / Micro Data 04/17/23 15:35 04/17/23 15:35 Labs: Laboratory Results - last 24 hr 04/17/23 15:35: WBC 12.8 H, RBC 6.48 H, Hgb 17.3 H, Hct 51.9, MCV 80.1, MCH 26.7L, MCHC 33.3, RDW Std Deviation 45.0 H, RDW Coeff of Kiet 16.3 H, Plt Count 202, MPV 10.2, Immature Gran % (Auto) 0.300, Neut % (Auto) 82.5 H, Lymph % (Auto) 5.5L, [place] % (Auto) 10.9 H, Eos % (Auto) 0.5, Baso % (Auto) 0.3, Absolute Neuts (auto) 10.6 H, Absolute Lymphs (auto) 0.70 L, Nucleated RBC % 0, Sodium 137, Potassium 3.5, Chloride 101, Carbon Dioxide 29.0, Anion Gap 7, BUN 27 H, Creatinine 1.15, Estim Creat Clear Calc 104.24, Est GFR (MDRD) Af Amer 93, Est GFR (MDRD) Non-Af 77, BUN/Creatinine Ratio 23.5 H, Glucose 142 H, Lactic Acid 1.4, Calcium 9.4, Total Bilirubin 1.20 H, AST 41 H, ALT 86 H, Alkaline Phosphatase 103, Total Protein 8.2, Albumin 4.2, Globulin 4.0, Albumin/Globulin Ratio 1.0, Lipase 27 Assessment & Plan Assessment/Plan (1) Ventral hernia with obstruction but no gangrene: PLAN: Patient was here with pain and nausea and vomiting. CT scan revealed distended proximal small bowel with transition point at the hernia. The physician in the emergency room was able to reduce the hernia. The patient sayshe feels better. I will admit him to the floor for observation and keep n.p.o. until he passes gas. I plan on repairing the hernia on Wednesday laparoscopically. I discussed laparoscopic ventral hernia repair with mesh in detail with the patient. I discussed the risks such as bleeding, infection, injury to underlying organs. Patient understands the risks and is when to proceed. Tejas Genao MD Pager: [facility] [address], [address] [place] [address] Office: 04/17/23 1640 <Electronically signed by Tejas Genao MD> Cosigner Signature (if applicable): CC: Dr. Tejas Genao MD; Dr. Marvin Sheets MD~ Signed [facility] Work Phone: [phone]) 765-581009-16-2023 Discharge summary Author Radhika Soria [facility] April 17, 2023 5:17pm Note Date/Time April 17, 2023 3:29pm [facility] Medical Records Department [address] [place] [id number] Emergency Department Summary 04/17/23 MR#: [id number] Acct: [id number] Name: MAYUR WORTHINGTON Rep #:[id number] : 1985 37 From: Radhika Ybarra PCP: Dr. Marvin Sheets MD Status:AD M IN Location: [facility] [id number] HPI HPI - GI History of Present Illness Chief Complaint: Abd Pain Informant: patient and parent Narrative Narrative: Patient is a 37-year-old male presenting from home for continued abdominal pain,nausea and vomiting. Patient states his symptoms for started 3 [place] Initially they thought it was some type of food poisoning. He has continued to have vomiting. He has had a bowel movement a couple days. He is having diffuse abdominal pain but points more to his umbilical region. Hedoes note that he thinks he has a hernia in that area. He states he just noticed it about a week and a half ago however has been more painful over the past day or so. Denies any blood in his vomit. He states he cannot keep anything down and throws up everything. He notes he has not urinated since yesterday. Denies any fever but does feel clammy. No history of any abdominal surgeries. Has never had a thing like this before. No other complaints or concerns at this time. Notes he is also feeling very anxious and does have a history of anxiety. [facility] Home Medications lisdexamfetamine 70 mg capsule (Vyvanse) 70 mg PO DAILY 12/03/15 [History Last Taken Unknown] albuterol sulfate 90 mcg/actuation aerosol inhaler 2 puff inhalation Q4H PRN shortness of breath 04/17/23 [History Last Taken Unknown] cetirizine 10 mg tablet (24Hour Allergy) 10 mg PO DAILY allergies 04/17/23 [History Last Taken Unknown] fluticasone propionate 50 mcg/actuation nasal spray,suspension 2 spray intranasal DAILY allergies 04/17/23 [History Last Taken Unknown] hydrochlorothiazide 12.5 mg capsule 12.5 mg PO DAILY HTN 04/17/23 [History Last Taken Unknown] lisinopril 10 mg tablet 10 mg PO DAILY 04/17/23 [History Last Taken Unknown] meloxicam 15 mg tablet 15 mg PO DAILY 04/17/23 [History Last Taken Unknown] omeprazole 20 mg capsule,delayed release 20 mg PO DAILY 04/17/23 [History Last Taken Unknown] sertraline 100 mg tablet 100 mg PO DAILY depression 04/17/23 [History Last Taken Unknown] Allergy/AdvReac Type Severity Reaction Status Date / Time latex Allergy Rash Verified 04/17/23 14:51 Social History Smoking Status: Former smoker ROS ROS ED Constitutional Constitutional ED: Reports other Details: Clammy, not able to keep anything down ; Denies chills or fever(s) Cardiovascular Cardiovascular: Denies chest pain Respiratory/Chest Respiratory/Chest: Denies cough Gastrointestinal Gastrointestinal: Reports abdominal pain, constipation, nausea and vomiting; Denies diarrhea Genitourinary Genitourinary ED: Reports other Details: Decreased urination, denies any testicular pain ; Denies dysuria Musculoskeletal Musculoskeletal: Denies arthralgias or myalgias Integumentary Denies rash Neurologic Neurologic: Denies headache(s) Psychiatric Psychiatric: Reports anxiety EXAM Physical Exam Const Vital Signs: 04/17/23 14:49 04/17/23 16:42 Temperature 96 F L 97 F L Temperature Source Temporal Temporal Pulse Rate 127 H 106 H Respiratory Rate 18 20 H Blood Pressure 168/110 H 142/69 H Blood Pressure Mean 129 93 Pulse Ox 93 92 Oxygen Delivery Method Room Air Room Air Positive well nourished and obese Constitutional Narrative: Uncomfortable appearing Nutritional Appearance: obese HEENT Reports dry mucous membranes Mouth ED: Yes dry mucous membranes Mouth: dry mucous membranes Eyes PERRL and EOMs intact bilaterally General Eye ED: Negative for scleral icterus Neck supple Resp normal respiratory effort and clear to auscultation bilaterally Cardio regular rhythm Rate: tachycardic GI GI Narrative: Patient has a periumbilical hernia just superior and to the left of the umbilicus. It is firm and tender. Does not easily reduce. There is no overlying erythema. Inspection: abdominal distention Auscultation: hypoactive bowel sounds Palpation: soft; Negative for guarding Extremity full ROM General Extremety ED: Negative for edema General Extremity: Negative for edema Neuro moves all extremities Sensorium / Orientation: alert, oriented to person, oriented to place and oriented to time Psych mental status grossly normal Mood & Affect: anxious Skin no wounds Rashes: no rashes MDM MDM MDM Narrative Medical decision making narrative: Patient is evaluated for nausea, vomiting abdominal pain. On arrival he is hypertensive (does have a history of hypertension) and tachycardic. He does appear dehydrated. I am concerned about incarcerated hernia based on physical exam and HPI. We will attempt some pain control, ice over the hernia and try toreduce. If not we will evaluate after CT. At this time he does not have overlying erythema and I have a lower suspicion for strangulated hernia. 1600?patient is reevaluated after medicated. With steady gentle pressure I am able to reduce the hernia. Patient tolerates this reasonably well and has improvement of pain after reduction. We will continue with work-up looking for signs of ischemia, obstruction on CT, pancreatitis, renal insufficiency/dehydration. Patient is a mild leukocytosis does appear to be hemoconcentrated with an elevated hemoglobin and he has a very mild transaminitis on his CMP. Lipase is normal. CT is concerning for mechanical obstruction. Patient continues to havesignificant movement of pain after manual reduction of the hernia. His lactate is normal. Low sufficient for strangulated hernia. Surgical consult is obtained and case is discussed with Dr. eGnao. He will admit the patient and plan for laparoscopic hernia repair. Patient agreeable this plan of care. Patient will will continue hydration and symptom control the meantime. Lab Data Labs: Laboratory Results - last 24 hr 04/17/23 15:35 WBC 12.8 H RBC 6.48 H Hgb 17.3 H Hct 51.9 MCV 80.1 MCH 26.7 L MCHC 33.3 RDW Std Deviation 45.0 H RDW Coeff of Kiet 16.3 H Plt Count 202 MPV 10.2 Immature Gran % (Auto) 0.300 Neut % (Auto) 82.5 H Lymph % (Auto) 5.5 L [place] % (Auto) 10.9 H Eos % (Auto) 0.5 Baso % (Auto) 0.3 Absolute Neuts (auto) 10.6 H Absolute Lymphs (auto) 0.70 L Nucleated RBC % 0 Sodium 137 Potassium 3.5 Chloride 101 Carbon Dioxide 29.0 Anion Gap 7 BUN 27 H Creatinine 1.15 Estim Creat Clear Calc 104.24 Est GFR (MDRD) Af Amer 93 Est GFR (MDRD) Non-Af 77 BUN/Creatinine Ratio 23.5 H Glucose 142 H Lactic Acid 1.4 Calcium 9.4 Total Bilirubin 1.20 H AST 41 H ALT 86 H Alkaline Phosphatase 103 Total Protein 8.2 Albumin 4.2 Globulin 4.0 Albumin/Globulin Ratio 1.0 Lipase 27 Radiography Diagnostic Testing: Clinical Impression(s) from Imaging Studies Abdomen/Pelvis CT 04/17/23 15:09 IMPRESSION: Dilated gas and fluid-filled loops of small bowel proximally with normal caliber bowel loops distally compatible with mechanical obstruction. There is an umbilical hernia which contains a loop of bowel and appears to be the point of obstruction. Electronically Signed: Tommy Marion MD at 17:00 EDT , Management Discussion w/another healthcare provider: Pigment Presser Discharge Plan Triage Chief Complaint: Abd Pain ED Provider: Radhika Soria Dx/Rx/DC Orders Clinical Impression: Ventral hernia with obstruction but no gangrene, Acute dehydration Primary Care Provider: Marvin Sheets Disposition Disposition: Acute Care Hospital [facility] What to do if you have Problems For any increased pain, shortness of breath, bleeding, nausea or vomiting, chestpain, or any unexpected problems, contact your Primary Care Provider. Call [facility] ([phone]) or report to the closest Emergency Room. Call 911 if necessary. 04/17/23 1717 <Electronically signed by Radhika Soria DO> Cosigner Signature (if applicable): CC: Dr. Marvin Sheets MD ~ Signed [facility] Work Phone: [phone]) 967-443209-13-2023 Miscellaneous Notes* Telephone Encounter - Clemente Negro APRN.CNP - 04/14/2023 11:38 AM EDT The following approved medication requests have been transmitted electronically. Requested Prescriptions Pending Prescriptions Disp Refills hydroCHLOROthiazide 12.5 mg capsule [Pharmacy Med Name: HYDROCHLOROTHIAZIDE 12.5 MG CP] 90 capsule 1 Sig: take 1 capsule by mouth once daily Clemente Negro APRN.CNP * Telephone Encounter - Onesimo Gómez LPN - 04/14/2023 7:37 AM EDT Last refill 10/15/22 Qty: 30 with 5 refills ANA 04/09/23 NOV 07/16/23 Onesimo Gómez LPN documented in this encounterW[facility] Instructions* Patient Instructions* Christina Sifuentes - 04/09/2023 8:46 AM EDT Continue on current medication supervisor finish end medication at pharmacy Take BP medication 1-2 hours before next appointment Follow up in 3 months documented in this encounterW[facility] History of Present illness Narrative* Clemente Negro APRN.CNP - 04/09/2023 8:20 AM EDT Chief Complaint Patient presents with: F/U 3 Month HPI Mayur Worthington is a 37 year old male who presents here today for Chronic Medical Conditions ADD: Current Treatment: Vyvanse 70 mg, but pharmacy is out and has not been able to take his medication for 5 days. Feels treatment is working well: Yes. Weight loss: No. Has had recent weight gain due to being off medication for several days Insomnia: No. Pt reports trouble if takes it later in the day. Typically gets 3- 5 hours. GASTROENTEROLOGY complaints: No. Tremor: No. Mood disorder: No. Depressive symptoms managed currently. Chest pain/Palpitations: No. Aware of risks associated with controlled substance use: Yes. Hx of misuse/abuse/diversion of meds: No. HTN: Patient is compliant with meds Yes. Did not take medication before appointment today. Monitors bp at home: Yes. 130/80 average after BP medication is taken Denies side effects: Yes. Chest pain: No. Dyspnea: No. Edema: No. Palpitations: No. Syncope: No. Headache: No. Dizziness: No. Past medical history, appointments, medications, allergies reviewed. EXAM: BP 142/88 Pulse 94 Resp 16 Wt (!) 177.4 kg (391 lb 3.2 oz) SpO2 98% BMI 50.23 kg/m Recheck at 140/80. General Appearance: Well appearing, alert, in no acute distress, well-hydrated, well nourished.. Skin: Skin color, texture, turgor normal, no suspicious rashes or lesions. Musculoskeletal: No joint swelling, deformity, or tenderness. Neurologic: Gait normal. Heart: No extra heart sounds, s1, s2 present Lungs: Clear to auscultation bilaterally ASSESSMENT/PLAN: 1. Attention deficit hyperactivity disorder (ADHD), predominantly hyperactive type - ICD9: 314.01, ICD10: F90.1 (primary diagnosis) - Stable, continue with Vyvanse, let us know if he is having difficulty with filling 2. Essential hypertension - ICD9: 401.9, ICD10: I10 - Controlled - Continue current medications - Recommend home blood pressure monitoring, to bring results to next visit - Encouraged sodium restriction, DASH or Mediterranean diet - Recommend regular aerobic exercise - COMP METABOLIC PANEL 3. Chronic bilateral low back pain with bilateral sciatica - ICD9: 724.2, 724.3, 338.29, ICD10: M54.42, M54.41, G89.29 Chronic low back pain - stable 4. Depression, unspecified depression type - ICD9: 311, ICD10: F32.A - Stable on zoloft 5. Screening for lipid disorders - ICD9: V77.91, ICD10: Z13.220 - LIPID PANEL BASIC Clemente Negro APRN.CNP RTO in 3 months, sooner if needed. This note was partly generated using Dragon voice recognition dictation and may contain some misspelled or inaccurate words missed on review. documented in this encounterW[facility]09-05-2023 Miscellaneous Notes* Telephone Encounter - Clemente Negro APRN.CNP - 04/06/2023 9:29 AM EDT Approved. PDMP website checked and validated. All prescriptions have been APPROPRIATELY filled. No suspiciousactivity was identified. 04/06/2023 by Clemente Negro APRN.CNP The following approved medication requests have been transmitted electronically. Requested Prescriptions Signed Prescriptions Disp Refills lisdexamfetamine (VYVANSE) 70 mg capsule 30 capsule 0 Sig: Take 1 capsule by mouth once daily for 30 days. Authorizing Provider: CLEMENTE NEGRO APRN.CNP * Telephone Encounter - Tabatha Palma LPN - 04/06/2023 9:02 AM EDT Patient phones requesting refills as follows: Patient comment: [facility] [place] Requested Prescriptions Pending Prescriptions Disp Refills lisdexamfetamine (VYVANSE) 70 mg capsule 30 capsule 0 Sig: Take 1 capsule by mouth once daily for 30 days. ANA-12/03/22 Labs-02/06/22 NOV-none Please review and advise. Tabatha Palma LPN documented in this encounterW[facility]08-01-2023 Miscellaneous Notes* Telephone Encounter - Becky Porter LPN - 03/02/2023 3:05 PM EDT Pt requested rx for Vyvanse to go to [facility]. Per med chart rx for Vyvanse was already sent to [facility]. Pt advised of this. Becky Porter LPN documented in this encounterW[facility]08-01-2023 Miscellaneous Notes* Telephone Encounter - Clemente Negro APRN.CNP - 03/02/2023 8:09 AM EDT Approved. PDMP website checked and validated. All prescriptions have been APPROPRIATELY filled. No suspiciousactivity was identified. 03/02/2023 by Clemente Negro APRN.CNP The following approved medication requests have been transmitted electronically. Requested Prescriptions Signed Prescriptions Disp Refills lisdexamfetamine (VYVANSE) 70 mg capsule 30 capsule 0 Sig: Take 1 capsule by mouth once daily for 30 days. Authorizing Provider: CLEMENTE NEGRO Refused Prescriptions Disp Refills lisdexamfetamine (VYVANSE) 70 mg capsule 30 capsule 0 Sig: Take 1 capsule by mouth once daily for 30 days. Refused By: MERLINE CHRISTINA Reason for Refusal: Request already responded to by other means (for example, phone, fax) Clemente Negro APRN.WALE * Telephone Encounter - Karon Briceño Ma - 03/01/2023 4:17 PM EDT Vyvanse has been sent to different pharmacies however pt has not been able to get scripts filled due pharmacy being out. He is requesting rx be [facility]. Karon Briceño Ma documented in this encounterW[facility]07-31-2023 Miscellaneous Notes* Telephone Encounter - Karon Briceño Ma - 03/01/2023 3:18 PM EDT Pt advised via mychart he will need to continue to check with different pharmacies to see who has it. We do not know who has the medication and who does not. Other option would be to make appointment to discuss other medication options. Karon Briceño Ma documented in this encounterW[facility]07-31-2023 Miscellaneous Notes* Telephone Encounter - Clemetne Negro APRN.CNP - 03/01/2023 7:01 AM EDT Approved. PDMP website checked and validated. All prescriptions have been APPROPRIATELY filled. No suspiciousactivity was identified. 03/01/2023 by Clemente Negro APRN.CNP The following approved medication requests have been transmitted electronically. Requested Prescriptions Signed Prescriptions Disp Refills lisdexamfetamine (VYVANSE) 70 mg capsule 30 capsule 0 Sig: Take 1 capsule by mouth once daily for 30 days. Authorizing Provider: CLEMENTE NEGRO APRN.CNP * Telephone Encounter - Karon Briceño Ma - 02/26/2023 4:43 PM EDT Last office visit: 12/03/22 F/u scheduled: 03/09/23 Last refilled on: Vyvanse #30 on 02/22/23 Karon Briceño Ma documented in this encounterW[facility]06-23-2023 Miscellaneous Notes* Telephone Encounter - Clemente Negro APRN.CNP - 01/22/2023 2:06 PM EDT Approved. PDMP website checked and validated. All prescriptions have been APPROPRIATELY filled. No suspiciousactivity was identified. 01/22/2023 by Clemente Negro APRN.CNP The following approved medication requests have been transmitted electronically. Requested Prescriptions Signed Prescriptions Disp Refills lisdexamfetamine (VYVANSE) 70 mg capsule 30 capsule 0 Sig: Take 1 capsule by mouth once daily for 30 days. Authorizing Provider: CLEMENTE NEGRO APRN.WALE * Telephone Encounter - Karon Briceño Ma - 01/22/2023 1:43 PM EDT Last office visit: 12/03/22 F/u scheduled: 03/09/23 Last refilled on: Vyvanse #30 on 12/18/22 Karon Briceño Ma documented in this encounterW[facility]05-04-2023 History of Present illness Narrative* Marvin Sheets MD - 12/03/2022 11:20 AM EDT Chief Complaint Patient presents with: Medication Follow-up HPI Mayur Worthington is a 37 year old male who presents here today for a 6 month follow up. Pt here today for his routine follow up and new medication follow up. ADHD/ADD: Stable with use of Vyvanse 70 mg daily. Depression: Pt seen acutely on 11/03/22 for depression symptoms. He was started on Zoloft 50 mg once daily. He feels that he has improved but feels he could be better, would like to increased dosage. He also had symptoms of no energy, crying, trouble sleeping, mind racing, outbursts of anger and finding his daily tasks to be difficult to do/complete has improved but could be better. His symptoms were increased due to having to put his dog down. Asthma/Allergies: Stable with prn use of ProAir inhaler, OTC Claritin prn and Flonase. Uses the Albuterol inhaler a few times a week, if he feels his chest is tight. HTN: Checks BP occasionally with readings running 140/90 or lower, denies any chest pain, sob or dizziness. On current regimen of HCTZ 12.5 mg daily and Lisinopril 10 mg daily. He states he did not take his pills this morning, was in hurry to get to appointment today. Pain: Chronic back pain, stable with use of Mobic 15 mg daily. Past medical history, appointments, medications, allergies reviewed. Previous Medical History PAST MEDICAL HISTORY Diagnosis Date ADD (attention deficit disorder) Febrile convulsions (simple), unspecified PMH - PAST MEDICAL HISTORY OF Color Vision - Normal Routine or ritual circumcision Previous Surgical History PAST SURGICAL HISTORY Procedure Laterality Date TONSILLECTOMY & ADENOIDECTOMY <AGE 14 TYMPANOSTOMY LOCAL/TOPICAL ANESTHESIA age 6 year Family History FAMILY HISTORY Problem Relation Age of Onset other (heart failure [Other]) [facility] 51 Patient Allergies ALLERGIES Allergen Reactions Elidel [Macrolide I* Itching Burning and severe itching Pollen Cough Current Medications Current Outpatient Medications on File Prior to Visit Medication Sig meloxicam (MOBIC) 15 mg tablet Take 1 tablet by mouth once daily. Take with food. lisdexamfetamine (VYVANSE) 70 mg capsule Take 1 capsule by mouth once daily for 30 days. olopatadine (PATANOL) 0.1 % ophthalmic solution USE 1-2 DROPS IN BOTH EYES TWICE DAILY sertraline (ZOLOFT) 50 mg tablet Take 1 tablet by mouth once daily. hydroCHLOROthiazide 12.5 mg capsule Take 1 capsule by mouth once daily. lisinopril (ZESTRIL, PRINIVIL) 10 mg tablet Take 1 tablet by mouth once daily. fluticasone (FLONASE) 50 mcg/actuation nasal spray Use 2 Sprays in each nostril once daily. albuterol HFA (PROAIR HFA) 90 mcg/actuation inhaler Inhale 2 Puffs as instructed every 6 hours as needed. Clobetasol Propionate (TEMOVATE) 0.05 % external solution MIX 1 BOTTLE INTO A 1LB TUB OF CERAVE ANDAPPLY 1X DAILY TO ANY AREAS OF RASH YOU CAN SEE OR FEEL. No current facility-administered medications on file prior to visit. Social History Social History Tobacco Use Smoking status: Former Packs/day: 1.00 Types: Cigarettes Smokeless tobacco: Former Types: Chew Vaping Use Vaping Use: Former Substance Use Topics Alcohol use: No Drug use: Never EXAM: BP 140/90 Pulse 82 Resp 18 Wt (!) 173 kg (381 lb 6.4 oz) BMI 48.97 kg/m General Appearance: Well appearing, alert, in no acute distress, well-hydrated, well nourished. andMorbidly obese. Lungs: Lungs clear to auscultation. No wheezing, rhonchi, rales.. Heart: RRR without murmur, gallop, or rubs. No ectopy. Health Maintenance List COVID-19 VACCINE(4 - Booster for Pfizer series) due on 08/29/2021 BP CONTROLLED (<130/80) due on 01/28/2022 LIPID SCREEN Never done ANNUAL PCP TEAM CHRONIC DISEASE VISIT due on 11/04/2023 DTAP,TDAP,TD(9 - Td or Tdap) due on 12/02/2025 HEPATITIS B Completed INFLUENZA Completed DEPRESSION ASSESSMENT Completed HEPATITIS C SCREENING Discontinued HIV SCREENING Discontinued Data reviewed None ASSESSMENT/PLAN: 1. Attention deficit hyperactivity disorder (ADHD), predominantly hyperactive type - ICD9: 314.01, ICD10: F90.1 (primary diagnosis) Stable Continue current medications. 2. Essential hypertension - ICD9: 401.9, ICD10: I10 - good control - Continue current medication(s) - Recommended regular aerobic exercise. - Recommend home blood pressure monitoring, to bring results in on next visit - Goal of BP <130/80 3. Chronic bilateral low back pain with bilateral sciatica - ICD9: 724.2, 724.3, 338.29, ICD10: M54.42, M54.41, G89.29 Chronic low back pain Continue current medications. 4. Current mild episode of major depressive disorder, unspecified whether recurrent (HCC) - ICD9: 296.21, ICD10: F32.0 Increase Zoloft to 100 mg daily Follow up in 3 months. I agree with the Chief Complaint, ROS, and Past Histories independently gathered by the clinical application support administrator and the remaining scribed note accurately describes my personal service to the patient. Medical Decision Making: Problems: Moderate: 2+ stable chronic illnesses Risk: Moderate: Drug management Medical Decision Making Level: 4 - Moderate Marvin Sheets MD The documentation for this note was completed by Karon Briceño Ma acting as scribe for Marvin Sheets MD. December 03, 2022 11:14 AM. Karon Briceño Ma documented in this encounterW[facility]04-24-2023 Miscellaneous Notes* Telephone Encounter - Clemente Negro APRN.CNP - 11/23/2022 10:15 AM EDT The following approved medication requests have been transmitted electronically. Requested Prescriptions Pending Prescriptions Disp Refills meloxicam (MOBIC) 15 mg tablet 30 tablet 5 Sig: Take 1 tablet by mouth once daily. Take with food. Clemente Negro APRN.CNP documented in this encounterW[facility]04-11-2023 Miscellaneous Notes* Telephone Encounter - Clemente Negro APRN.CNP - 11/10/2022 12:14 PM EDT The following approved medication requests have been transmitted electronically. Requested Prescriptions Pending Prescriptions Disp Refills olopatadine (PATANOL) 0.1 % ophthalmic solution [Pharmacy Med Name: [facility] OLOPATADINE 0.1% EYE DROPS]5 mL 1 Sig: USE 1-2 DROPS IN BOTH EYES TWICE DAILY Clemente Negro APRN.CNP * Telephone Encounter - Reanna Mckee MA - 11/10/2022 12:03 PM EDT Patient has been identified by name and date of : Yes Requested Prescriptions Pending Prescriptions Disp Refills olopatadine (PATANOL) 0.1 % ophthalmic solution [Pharmacy Med Name: [facility] OLOPATADINE 0.1% EYE DROPS]5 mL 1 Sig: USE 1-2 DROPS IN BOTH EYES TWICE DAILY RX INSTRUCTIONS: Patient aware RX will be sent to pharmacy. No need to notify patient. Patient last office visit: 11/03/22 Patient next office visit: 12/03/22 Reanna Mckee MA documented in this encounterW[facility]04-04-2023 History of Present illness Narrative* Marvin Sheets MD - 11/03/2022 10:00 AM EDT Chief Complaint Patient presents with: Depression HPI Mayur Worthington is a 37 year old male who presents here today for depression. Pt scheduled today for an acute visit to discuss his depression. Depression: Intermittent over the past year, but worse now. Had to put his dog to sleep recently which has caused his sadness and depression to worsen. Pt states that he is crying all the time and will just start crying for no reason. He has decreased energy, trouble sleeping, mind racing, outbursts of anger and finding everyday tasks being difficult to complete. Doesn't want to get out of bed attimes. Denies any SI/HI, but is wanting to start medication before he would ever get to this point.Currently living with his mother. Does have friends, but doesn't really communicate this to them. He feels like he keeps things bottled up to the point he can't hold it in anymore. Denies any past tra pam in his life. Just life stressors in the past and doesn't want to discuss it at this time. Is able to go to work/function, states he does fairly well there. He turns on his music and feels better.Occasionally will have bursts of sadness at work. He feels like he's in quicksand and can't get outof it. Has not done Counseling recently, but has in the distant past. Has never previously been on medication. His Mother is on Zoloft, does well with this. Past medical history, appointments, medications, allergies reviewed. Previous Medical History PAST MEDICAL HISTORY Diagnosis Date ADD (attention deficit disorder) Febrile convulsions (simple), unspecified PMH - PAST MEDICAL HISTORY OF Color Vision - Normal Routine or ritual circumcision Previous Surgical History PAST SURGICAL HISTORY Procedure Laterality Date TONSILLECTOMY & ADENOIDECTOMY <AGE 14 TYMPANOSTOMY LOCAL/TOPICAL ANESTHESIA age 6 year Family History FAMILY HISTORY Problem Relation Age of Onset other (heart failure [Other]) Other [facility] age 51 Patient Allergies ALLERGIES Allergen Reactions Elidel [Macrolide I* Itching Burning and severe itching Pollen Cough Current Medications Current Outpatient Medications on File Prior to Visit Medication Sig doxycycline monohydrate 100 mg tablet Take 1 tablet by mouth twice daily for 5 days. predniSONE (DELTASONE) 20 mg tablet Take 2 tablets by mouth once daily for 5 days. lisdexamfetamine (VYVANSE) 70 mg capsule Take 1 capsule by mouth once daily for 30 days. hydroCHLOROthiazide 12.5 mg capsule Take 1 capsule by mouth once daily. benzonatate (TESSALON PERLES) 100 mg capsule Take 1-2 capsules by mouth three times daily as needed. olopatadine (PATANOL) 0.1 % ophthalmic solution USE 1-2 DROPS IN BOTH EYES TWICE DAILY lisinopril (ZESTRIL, PRINIVIL) 10 mg tablet Take 1 tablet by mouth once daily. meloxicam (MOBIC) 15 mg tablet Take 1 tablet by mouth once daily. Take with food. fluticasone (FLONASE) 50 mcg/actuation nasal spray Use 2 Sprays in each nostril once daily. albuterol HFA (PROAIR HFA) 90 mcg/actuation inhaler Inhale 2 Puffs as instructed every 6 hours as needed. cyclobenzaprine (FLEXERIL) 10 mg tablet Take 1 tablet by mouth three times daily as needed for Muscle Spasm. Clobetasol Propionate (TEMOVATE) 0.05 % external solution MIX 1 BOTTLE INTO A 1LB TUB OF CERAVE ANDAPPLY 1X DAILY TO ANY AREAS OF RASH YOU CAN SEE OR FEEL. albuterol HFA (VENTOLIN HFA) 90 mcg/actuation inhaler Inhale 2 Puffs as instructed every 4 hours asneeded for Wheezing/Shortness of Breath. No current facility-administered medications on file prior to visit. Social History Social History Tobacco Use Smoking status: Former Packs/day: 1.00 Types: Cigarettes Smokeless tobacco: Former Types: Chew Vaping Use Vaping Use: Former Substance Use Topics Alcohol use: No Drug use: Never EXAM: BP 154/92 Pulse 104 Resp 20 Wt (!) 174.6 kg (385 lb) BMI 49.43 kg/m General Appearance: Well appearing, alert, in no acute distress, well-hydrated, well nourished. andMorbidly obese. Lungs: Lungs clear to auscultation. No wheezing, rhonchi, rales.. Heart: RRR without murmur, gallop, or rubs. No ectopy. Health Maintenance List COVID-19 VACCINE(4 - Booster for Pfizer series) due on 08/29/2021 BP CONTROLLED (<130/80) due on 01/28/2022 DEPRESSION ASSESSMENT due on 08/02/2022 LIPID SCREEN due on 10/19/2022 ANNUAL PCP TEAM CHRONIC DISEASE VISIT due on 05/19/2023 DTAP,TDAP,TD(9 - Td or Tdap) due on 12/02/2025 HEPATITIS B Completed INFLUENZA Completed HEPATITIS C SCREENING Discontinued HIV SCREENING Discontinued Data reviewed None ASSESSMENT/PLAN: 1. Depression, unspecified depression type - ICD9: 311, ICD10: F32.A (primary diagnosis) - Start Zoloft 50 mg once daily - discussed going to Counseling. - DEPRESSION SCREENING/ASSESSMENT - SERTRALINE 50 MG TABLET 2. Tearfulness - ICD9: 780.99, ICD10: R45.89 - noted above 3. Difficulty sleeping - ICD9: 780.50, ICD10: G47.9 - Depression better controlled, sleep may improve - SERTRALINE 50 MG TABLET 4. Irritability and anger - ICD9: 799.22, ICD10: R45.4 - Start Zoloft. 1 mo f/u. Update office if issues. I agree with the Chief Complaint, ROS, and Past Histories independently gathered by the clinical application support administrator and the remaining scribed note accurately describes my personal service to the patient. Medical Decision Making: Problems: Moderate: New problem with uncertain prognosis Risk: Moderate: Drug management Medical Decision Making Level: 4 - Moderate Marvin Sheets MD The documentation for this note was completed by Zaida Trujillo Ma acting as scribe for Marvin Sheets MD. November 03, 2022 10:20 AM. Zaida Trujillo Ma documented in this encounterWvumed[facility]03-31-2023 Miscellaneous Notes* Telephone Encounter - Zaida Trujillo Ma - 10/30/2022 4:35 PM EDT Spoke with PCP who is okay with completing a VV. Call to pt and he was scheduled with PCP on 11/03/22@ 10:00 am, first available in appt times requested by pt. Zaida Trujillo Ma * Telephone Encounter - Marvin Sheets MD - 10/30/2022 3:57 PM EDT First available appt with our team is OK; does not need to be within 24 hours. Marvin Sheets MD * Telephone Encounter - Aby Baxter RN - 10/30/2022 2:56 PM EDT Patient calls to report depression and sadness. No suicidal thoughts, plan, or intent. Nurse triagerecommends see provider within 24 hours. No available appointments at time of call. Offered appointment tomorrow with on-call and patient declined d/t working. Patient asking for provider recommendation. Care advise, red flag symptoms, and [phone] phone number reviewed with patient. Reason for Disposition [1] Depression AND [2] worsening (e.g.,sleeping poorly, less able to do activities of daily living) Answer Assessment - Initial Assessment Questions 1. CONCERN: Patient had to put dog to sleep and has been feeling upset but this has really made himsad and depressed. 2. DEPRESSION SYMPTOM SCREENING: Patient reports over all that for the past several months he has had decreased energy, difficulty sleeping, difficulty concentrating, feelings of sadness, and at times feeling hopeless or worthless. 3. RISK OF HARM - SUICIDAL IDEATION: Patient denies any thoughts, intent, or plan. 4. RISK OF HARM - HOMICIDAL IDEATION: Patient denies any thoughts, intent, or plan. 5. FUNCTIONAL IMPAIRMENT: Patient reports more difficulty than usual doing normal activities. 6. SUPPORT: Patient lives with mom. Is currently with mom and has a family and friend support system. 7. THERAPIST: No counselor or therapist 8. STRESSORS: Dog passing. Patient can't really think of any other stressors. 9. ALCOHOL USE OR SUBSTANCE USE (DRUG USE): Do you drink alcohol or use any illegal drugs? No 10. OTHER: No fever. Protocols used: [id number] documented in this encounterWvumedicine [facility]03-31-2023 Miscellaneous Notes* Telephone Encounter - Tiffanie Gomez - 10/30/2022 2:55 PM EDT Patient called to report mental health concerns. He was transferred to the triage nurse line. documented in this encounterWvumedicine [facility]03-31-2023 History of Present illness Narrative* Anna Pressley 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 - 10/30/2022 10:34 AM EDT CC: Patient presents with: Cough: Cough, runny nose, ST and congestion x 1 week HPI: Mayur Worthington is a 37 year old male who presents to the office with complaint of chest congestion, head congestion, cough, nonproductive, and sore throat for a week. Symptoms are worsening Associated symptoms includes nasal congestion and facial pain/pressure. Denies fever, nausea, vomiting , and diarrhea. Treatments tried include nothing so far. with no relief of symptoms. Sick contacts: unknown. History of asthma, frequent episodes of bronchitis, chronic bronchitis, bronchiectasis or COPD: No Smoker: No Seasonal/environmental allergies: No The ROS is otherwise negative. The patient's pmh, medications, allergies, and past visits are reviewed. PHYSICAL EXAM: BP 128/84 Pulse 109 Temp 36.5 C (97.7 F) (Tympanic) Resp 18 Wt (!) 176.2 kg (388 lb 6.4 oz) SpO2 97% BMI 49.87 kg/m General appearance: alert, cooperative, pleasant, in no acute distress Head: Normocephalic Eyes: EOM's intact, conjunctiva pink and moist, no icterus,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 refill takes less than 2 seconds. Coloration: Skin is not jaundiced or pale. Findings: No bruising, lesion or rash. Neurological: General: No focal deficit present. Mental Status: He is alert and oriented to person, place, and time. Cranial Nerves: No cranial nerve deficit. Sensory: No sensory deficit. Motor: No weakness. Coordination: Coordination normal. Gait: Gait normal. Deep Tendon Reflexes: Reflexes normal. Psychiatric: Mood and Affect: Mood normal. Behavior: Behavior normal. Thought Content: Thought content normal. Assessment and Plan ASSESSMENT/PLAN: 1. Pharyngitis, unspecified etiology - ICD9: 462, ICD10: J02.9 - suspect fungal given clinical presentation - Alere Strep Test negative, Fungal culture pending - RX Nystatin - Discussed supportive care treatment with fluids, rest and analgesia. - The patient may also use warm salt water gargles, throat lozenges and/or OTC throat spray as needed. - Contagious dz precautions discussed- including considered contagious until on antibiotics for 24 hours - The patient should follow up in 3-5 days if symptoms persist or worsen - Call back if drooling, increased temperature, symptoms of dehydration and/or still sick in one week - STREP A MOLECULAR (POC) - FUNGAL SCREEN Bridgett Yates APRN.CNP documented in this encounterW[facility]08-08-2022 Miscellaneous Notes* Telephone Encounter - Clemente Negro APRN.CNP - 03/09/2022 7:21 AM EDT The following approved medication requests have been transmitted electronically. Pending Prescriptions Disp Refills OLOPATADINE 0.1 % EYE DROPS 5 mL 1 Sig: USE 1-2 DROPS IN BOTH EYES TWICE DAILY. TO AFFECTED EYE(S) SANDIP: Yes Clemente Negro APRN.CNP * Telephone Encounter - Tabatha Palma LPN - 03/09/2022 7:18 AM EDT Patient phones requesting refills as follows: Pending Prescriptions Disp Refills OLOPATADINE 0.1 % EYE DROPS 5 mL 1 Sig: USE 1-2 DROPS IN BOTH EYES TWICE DAILY. TO AFFECTED EYE(S) SANDIP: Yes ANA-02/06/22 Labs-09/13/18 NOV-05/19/22 med filled 11/17/21 Please review and advise. Tabatha Palma LPN documented in this encounterW[facility]07-08-2022 Instructions* Patient Instructions* Tiffanie Gillis APRN.CNP - 02/06/2022 9:08 AM EDT 1.) Get fasting labs completed prior to next appointment, no food 8-10 hours prior. May have black coffee and water. 2.) Continue to take all medication as prescribed. 3.) Follow up in 3 months or sooner as needed. documented in this encounterW[facility]07-08-2022 History of Present illness Narrative* Tiffanie Gillis 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 - 02/06/2022 9:00 AM EDT Chief Complaint Patient presents with: Follow Up: med check HPI Mayur Worthington is a 36 year old male who presents here today for Medication check. Taking Vyvanse 70 mg daily for ADD. Medication works well for concentration, hyperactivity, appetite, and focus. No difficulty with sleep or palpitations. BP elevated today but has not taken HTN medication yet today. Past medical history, appointments, medications, allergies reviewed. Previous Medical History PAST MEDICAL HISTORY Diagnosis Date ADD (attention deficit disorder) Febrile convulsions (simple), unspecified PMH - PAST MEDICAL HISTORY OF Color Vision - Normal Routine or ritual circumcision Previous Surgical History PAST SURGICAL HISTORY Procedure Laterality Date REMOVE TONSILS/ADENOIDS,<14 Y/O TYMPANOSTOMY LOCAL; UNILATERAL age 6 year Family History FAMILY HISTORY Problem Relation Age of Onset other (heart failure [Other]) [facility] 51 Patient Allergies ALLERGIES Allergen Reactions Elidel [Macrolide I* Itching Burning and severe itching Pollen Cough Current Medications Current Outpatient Medications on File Prior to Visit Medication Sig lisdexamfetamine (VYVANSE) 70 mg capsule Take 1 capsule by mouth once daily for 30 days. olopatadine (PATANOL) 0.1 % ophthalmic solution USE 1-2 DROPS IN BOTH EYES TWICE DAILY. TO AFFECTEDEYE(S) hydroCHLOROthiazide 12.5 mg capsule Take 1 capsule by mouth once daily. lisinopril (ZESTRIL, PRINIVIL) 10 mg tablet Take 1 tablet by mouth once daily. fluticasone (FLONASE) 50 mcg/actuation nasal spray Use 2 Sprays in each nostril once daily. albuterol HFA (PROAIR HFA) 90 mcg/actuation inhaler Inhale 2 Puffs as instructed every 6 hours as needed. cyclobenzaprine (FLEXERIL) 10 mg tablet Take 1 tablet by mouth three times daily as needed for Muscle Spasm. Clobetasol Propionate (TEMOVATE) 0.05 % external solution MIX 1 BOTTLE INTO A 1LB TUB OF CERAVE ANDAPPLY 1X DAILY TO ANY AREAS OF RASH YOU CAN SEE OR FEEL. albuterol HFA (VENTOLIN HFA) 90 mcg/actuation inhaler Inhale 2 Puffs as instructed every 4 hours asneeded for Wheezing/Shortness of Breath. No current facility-administered medications on file prior to visit. Social History Social History Tobacco Use Smoking status: Former Smoker Packs/day: 1.00 Smokeless tobacco: Former User Types: Chew Vaping Use Vaping Use: Former Substance Use Topics Alcohol use: No Drug use: Never REVIEW OF SYSTEMS GENERAL: No weight loss, malaise or fevers/chills HEENT: Negative for frequent or significant headaches, No changes in hearing or vision. NECK: Negative for lumps, goiter, pain and significant neck swelling RESPIRATORY: Negative for cough, hemoptysis, wheezing, dyspnea or shortness of breath CARDIOVASCULAR: Negative for chest pain, leg swelling, orthopnea, or palpitations GI: No nausea, vomiting, or diarrhea/constipation. No hematochezia/melena. No heartburn or reflux symptoms. : No history of dysuria, frequency or incontinence MUSCULOSKELETAL: Negative for joint pain or swelling. SKIN: Negative for lesions, rash, and itching ENDOCRINE: Negative for cold or heat intolerance, polyuria, polydipsia and goiter NEURO: No history of headaches, syncope, paralysis, seizures or tremors MOOD: Negative for depression, anxiety, or suicidal ideation. EXAM: BP 140/90 Pulse 94 Resp 20 Wt (!) 164.7 kg (363 lb) SpO2 97% BMI 46.61 kg/m General Appearance: Well appearing, alert, in no acute distress, well-hydrated, well nourished. Skin: Skin color, texture, turgor normal, no suspicious rashes or lesions. Head: Normocephalic, no masses, lesions, tenderness or abnormalities. Eyes: Anicteric sclera. Extraocular movements are intact. Neck: Supple, no adenopathy; thyroid symmetric, normal size, no bruits. Lungs: Lungs clear to auscultation. No wheezing, rhonchi, rales. Heart: RRR without murmur, gallop, or rubs. No ectopy. Extremities: No deformities, edema, skin discoloration, clubbing or cyanosis. Good capillary refill. Peripheral Pulses: Normal, Capillary refill <2secs, strong peripheral pulses, Pulses palpable. PDMP website checked and validated. All prescriptions have been APPROPRIATELY filled. No suspiciousactivity was identified. 02/06/2022 by Tiffanie Gillis APRN.WALE Health Maintenance List COVID-19 VACCINE(3 - Booster for Pfizer series) due on 06/02/2021 ANNUAL PCP TEAM CHRONIC DISEASE VISIT due on 01/28/2022 BP CONTROLLED (<130/80) due on 01/28/2022 DEPRESSION SCREENING due on 01/28/2022 INFLUENZA(1) due on 04/02/2022 DTAP,TDAP,TD(8 - Td or Tdap) due on 01/10/2023 HEPATITIS C SCREENING Discontinued HIV SCREENING Discontinued ASSESSMENT/PLAN: 1. Attention deficit hyperactivity disorder (ADHD), predominantly hyperactive type - ICD9: 314.01, ICD10: F90.1 (primary diagnosis) - Refill provided. - Get annual tx screen testing. - Instructed to scheduled 3 month follow up with PCP. - LISDEXAMFETAMINE 70 MG CAPSULE - LISDEXAMFETAMINE 70 MG CAPSULE - LISDEXAMFETAMINE 70 MG CAPSULE - TOX SCREEN ROUT UR - PAIN PANEL, UR QUANT 2. Screening for diabetes mellitus - ICD9: V77.1, ICD10: Z13.1 - COMP METABOLIC PANEL - HGB A1C 3. Screening cholesterol level - ICD9: V77.91, ICD10: Z13.220 - LIPID PANEL BASIC Follow-up in 3 months or sooner as needed. Discussed treatment plan and patient voices understanding. Patient's questions answered appropriately. Medications and potential side effects were discussed and patient voices understanding. Tiffanie Gillis APRN.WALE This note was partially generated using [employer] voice recognition system. Note was reviewed for accuracy. There may be minor misspellings or grammar miscues with [employer] voice recognition. documented in this encounterWv[facility]07-07-2022 Miscellaneous Notes* Telephone Encounter - Karon Briceño Ma - 02/05/2022 2:00 PM EDT Refill denied as pt has been notified at last refill that he needs appt and has not made an appt. Last OV was 01/28/21. Karon Briceño Ma documented in this encounterWvumedicine [facility]05-09-2022 Miscellaneous Notes* Telephone Encounter - Karon Briceño Ma - 12/08/2021 9:19 AM EDT Pt notified via mychart that he is due for an appointment for further refills. Advised we could do a VV if that is easiest. Karon Briceño Ma * Telephone Encounter - Marvin Sheets MD - 12/05/2021 3:00 PM EDT OK to refill as ordered Agree that he needs appt for further refills Marvin Sheets MD * Telephone Encounter - Zaida Trujillo Ma - 12/05/2021 2:43 PM EDT Last OV: 01/28/21. No upcoming appt. Pt no showed appt on 07/21/21. Cancelled appt on 07/30/21. Last Rx: 11/06/21 #30 w/0. Pt made aware that his Rx request is under review. Pt notified that he needs to make an appt to be seen by PCP/Team in order to continue getting refills. Zaida Trujillo Ma documented in this encounterWvumedicine [facility]04-18-2022 Miscellaneous Notes* Telephone Encounter - Clemente Negro APRN.CNP - 11/17/2021 9:15 AM EDT The following approved medication requests have been transmitted electronically. Pending Prescriptions Disp Refills OLOPATADINE 0.1 % EYE DROPS 5 mL 1 Sig: USE 1-2 DROPS IN BOTH EYES TWICE DAILY. TO AFFECTED EYE(S) SANDIP: Yes Clemente Negro APRN.CNP * Telephone Encounter - KETAN Grimes - 11/17/2021 9:11 AM EDT Patient has been identified by name and date of : Yes Pharmacy phones for refill(s): Pending Prescriptions Disp Refills OLOPATADINE 0.1 % EYE DROPS 5 mL 1 Sig: USE 1-2 DROPS IN BOTH EYES TWICE DAILY. TO AFFECTED EYE(S) SANDIP: Yes Date of last office visit in primary care: OV on 01/28/2021 No appointment scheduled Last 2 Encounter Wt Readings: Date: Wt: 01/28/2021 147.4 kg (325 lb) 01/03/2021 147.4 kg (325 lb) Please advise. Thank you. KETAN Grimes documented in this encounterWv[facility]04-07-2022 Miscellaneous Notes* Telephone Encounter - Marvin Sheets MD - 11/06/2021 8:17 AM EDT OK to refill as ordered Marvin Sheets MD * Telephone Encounter - Tabatha Palma LPN - 11/06/2021 7:13 AM EDT Patient phones requesting refills as follows: Pending Prescriptions Disp Refills LISDEXAMFETAMINE 70 MG CAPSULE 30 capsule 0 Sig: Take 1 capsule by mouth once daily for 30 days. CAROLEE Class: C-II SANDIP: No ANA-01/28/21 Labs-01/03/21 NOV-none med filled 10/01/21 ends 10/31/21 Please review and advise. Tabatha Palma LPN documented in this encounterWvumed[facility]07-19-2007 History of Past illness Narrative* Problem Noted Date Resolved Date Backache, unspecified 02/17/2007 03/25/2007 documented as of this encounter (statuses as of 11/06/2021) [facility] of Past illness Narrative* Problem Noted Date Resolved Date Backache, unspecified 02/17/2007 03/25/2007 documented as of this encounter (statuses as of 11/17/2021) [address]19-2007 History of Past illness Narrative* Problem Noted Date Resolved Date Backache, unspecified 02/17/2007 03/25/2007 documented as of this encounter (statuses as of 12/08/2021) [address]19-2007 History of Past illness Narrative* Problem Noted Date Resolved Date Backache, unspecified 02/17/2007 03/25/2007 documented as of this encounter (statuses as of 02/05/2022) [address]19-2007 History of Past illness Narrative* Problem Noted Date Resolved Date Backache, unspecified 02/17/2007 03/25/2007 documented as of this encounter (statuses as of 02/06/2022) [address]19-2007 History of Past illness Narrative* Problem Noted Date Resolved Date Backache, unspecified 02/17/2007 03/25/2007 documented as of this encounter (statuses as of 03/09/2022) [address]19-2007 History of Past illness Narrative* Problem Noted Date Resolved Date Backache, unspecified 02/17/2007 03/25/2007 documented as of this encounter (statuses as of 04/09/2022) [address]19-2007 History of Past illness Narrative* Problem Noted Date Resolved Date Backache, unspecified 02/17/2007 03/25/2007 documented as of this encounter (statuses as of 04/27/2022) [address]19-2007 History of Past illness Narrative* Problem Noted Date Resolved Date Backache, unspecified 02/17/2007 03/25/2007 documented as of this encounter (statuses as of 05/19/2022) [address]19[address]2007 History of Past illness Narrative* Problem Noted Date Resolved Date Backache, unspecified 02/17/2007 03/25/2007 documented as of this encounter (statuses as of 08/07/2022) [address]19-2007 History of Past illness Narrative* Problem Noted Date Resolved Date Backache, unspecified 02/17/2007 03/25/2007 documented as of this encounter (statuses as of 08/10/2022) [address]19[address]2007 History of Past illness Narrative* Problem Noted Date Resolved Date Backache, unspecified 02/17/2007 03/25/2007 documented as of this encounter (statuses as of 08/18/2022) [address]19[address]2007 History of Past illness Narrative* Problem Noted Date Resolved Date Backache, unspecified 02/17/2007 03/25/2007 documented as of this encounter (statuses as of 09/18/2022) [address]19[address]2007 History of Past illness Narrative* Problem Noted Date Resolved Date Backache, unspecified 02/17/2007 03/25/2007 documented as of this encounter (statuses as of 10/30/2022) [address]19[address]2007 History of Past illness Narrative* Problem Noted Date Resolved Date Backache, unspecified 02/17/2007 03/25/2007 documented as of this encounter (statuses as of 10/31/2022) [address]19[address]2007 History of Past illness Narrative* Problem Noted Date Resolved Date Backache, unspecified 02/17/2007 03/25/2007 documented as of this encounter (statuses as of 11/03/2022) [address]19[address]2007 History of Past illness Narrative* Problem Noted Date Resolved Date Backache, unspecified 02/17/2007 03/25/2007 documented as of this encounter (statuses as of 11/10/2022) [address]19[address]2007 History of Past illness Narrative* Problem Noted Date Resolved Date Backache, unspecified 02/17/2007 03/25/2007 documented as of this encounter (statuses as of 11/14/2022) [address]19[address]2007 History of Past illness Narrative* Problem Noted Date Resolved Date Backache, unspecified 02/17/2007 03/25/2007 documented as of this encounter (statuses as of 11/23/2022) [address]19[address]2007 History of Past illness Narrative* Problem Noted Date Resolved Date Backache, unspecified 02/17/2007 03/25/2007 documented as of this encounter (statuses as of 12/04/2022) [address]19[address]2007 History of Past illness Narrative* Problem Noted Date Resolved Date Backache, unspecified 02/17/2007 03/25/2007 documented as of this encounter (statuses as of 01/22/2023) [address]19[address]2007 History of Past illness Narrative* Problem Noted Date Diagnosed Date Resolved Date Backache, unspecified 02/17/20072006 documented as of this encounter (statuses as of 03/01/2023) [address]19-2007 History of Past illness Narrative* Problem Noted Date Diagnosed Date Resolved Date Backache, unspecified 02/17/20072006 documented as of this encounter (statuses as of 03/02/2023) [address]19-2007 History of Past illness Narrative* Problem Noted Date Diagnosed Date Resolved Date Backache, unspecified 02/17/20072006 documented as of this encounter (statuses as of 03/02/2023) [address]19-2007 History of Past illness Narrative* Problem Noted Date Diagnosed Date Resolved Date Backache, unspecified 02/17/20072006 documented as of this encounter (statuses as of 03/03/2023) [address]19-2007 History of Past illness Narrative* Problem Noted Date Diagnosed Date Resolved Date Backache, unspecified 02/17/20072006 documented as of this encounter (statuses as of 04/06/2023) [facility]07-19-2007 History of Past illness Narrative* Problem Noted Date Diagnosed Date Resolved Date Backache, unspecified 02/17/20072006 documented as of this encounter (statuses as of 04/09/2023) [address]19-2007 History of Past illness Narrative* Problem Noted Date Diagnosed Date Resolved Date Backache, unspecified 02/17/20072006 documented as of this encounter (statuses as of 04/14/2023) [address]19-2007 History of Past illness Narrative* Problem Noted Date Diagnosed Date Resolved Date Backache, unspecified 02/17/20072006 documented as of this encounter (statuses as of 04/21/2023) [address]19-2007 History of Past illness Narrative* Problem Noted Date Diagnosed Date Resolved Date Backache, unspecified 02/17/20072006 documented as of this encounter (statuses as of 06/08/2023) [address]19-2007 History of Past illness Narrative* Problem Noted Date Diagnosed Date Resolved Date Backache, unspecified 02/17/20072006 documented as of this encounter (statuses as of 06/09/2023) [address]19-2007 History of Past illness Narrative* Problem Noted Date Diagnosed Date Resolved Date Backache, unspecified 02/17/20072006 documented as of this encounter (statuses as of 06/09/2023) [address]19-2007 History of Past illness Narrative* Problem Noted Date Diagnosed Date Resolved Date Backache, unspecified 02/17/20072006 documented as of this encounter (statuses as of 06/10/2023) [address]19-2007 History of Past illness Narrative* Problem Noted Date Diagnosed Date Resolved Date Backache, unspecified 02/17/20072006 documented as of this encounter (statuses as of 06/14/2023) [address]19-2007 History of Past illness Narrative* Problem Noted Date Diagnosed Date Resolved Date Backache, unspecified 02/17/20072006 documented as of this encounter (statuses as of 07/13/2023) [address]19-2007 History of Past illness Narrative* Problem Noted Date Diagnosed Date Resolved Date Backache, unspecified 02/17/20072006 documented as of this encounter (statuses as of 07/16/2023) [address]19-2007 History of Past illness Narrative* Problem Noted Date Diagnosed Date Resolved Date Backache, unspecified 02/17/20072006 documented as of this encounter (statuses as of 09/10/2023) [address]19-2007 History of Past illness Narrative* Problem Noted Date Diagnosed Date Resolved Date Backache, unspecified 02/17/20072006 documented as of this encounter (statuses as of 09/16/2023) [address]19-2007 History of Past illness Narrative* Problem Noted Date Diagnosed Date Resolved Date Backache, unspecified 02/17/20072006 documented as of this encounter (statuses as of 10/15/2023) [address]19-2007 History of Past illness Narrative* Problem Noted Date Diagnosed Date Resolved Date Backache, unspecified 02/17/20072006 documented as of this encounter (statuses as of 10/18/2023) [facility]07-19-2007 History of Past illness Narrative* Problem Noted Date Diagnosed Date Resolved Date Backache, unspecified 02/17/20072006 documented as of this encounter (statuses as of 10/25/2023) [facility]07-19-2007 History of Past illness Narrative* Problem Noted Date Diagnosed Date Resolved Date Backache, unspecified 02/17/20072006 documented as of this encounter (statuses as of 11/02/2023) [facility]07-19-2007 History of Past illness Narrative* Problem Noted Date Diagnosed Date Resolved Date Backache, unspecified 02/17/20072006 documented as of this encounter (statuses as of 11/15/2023) [facility] Ash Haines [facility] April 26, 2023 3:12pm Note Date/Time April 26, 2023 3:12pm [facility] Medical Records Department [address] [place] [address] Counseling Note - Pharmacy 04/26/23 1511 MR#: [id number] Acct: [id number] Name: MAYUR WORTHINGTON Rep #:[id number] 9 : 1985 37 From: Ash Haines PCP: Dr. Marvin Sheets MD Status:AD M IN Y Location: [facility] [id number] Pharmacy [facility] has performed discharge medication reconciliation and counseling for this patient. The patient's discharge medication list was reviewed for discrepancies and discrepancies were resolved. The patient was counseled on the following discharge medications and changes in medications for homegoing were reviewed. The Reason for Use, instructions for use, and potential side effects were reviewed for all new medications. The patient's questions regarding all of their medications were answered. 1. Enoxaparin 40 mg subcutaneously daily x 5 days The patient was able to verbally demonstrate an understanding of their dischargemedications. Medications at Discharge Home Medications lisdexamfetamine 70 mg capsule (Vyvanse) 70 mg PO DAILY 12/03/15 albuterol sulfate 90 mcg/actuation aerosol inhaler 2 puff inhalation Q4H PRN shortness of breath 04/17/23 cetirizine 10 mg tablet (24Hour Allergy) 10 mg PO DAILY allergies 04/17/23 fluticasone propionate 50 mcg/actuation nasal spray,suspension 2 spray intranasal DAILY allergies 04/17/23 hydrochlorothiazide 12.5 mg capsule 12.5 mg PO DAILY HTN 04/17/23 lisinopril 10 mg tablet 10 mg PO DAILY 04/17/23 meloxicam 15 mg tablet 15 mg PO DAILY 04/17/23 omeprazole 20 mg capsule,delayed release 20 mg PO DAILY 04/17/23 sertraline 100 mg tablet 100 mg PO DAILY depression 04/17/23 docusate sodium 100 mg capsule 100 mg PO BID 14 days #28 caps 04/20/23 oxycodone 5 mg tablet 5 mg PO Q6H PRN PRN Pain Score 4-10 10 days #30 tabs 04/20/23 enoxaparin 40 mg/0.4 mL subcutaneous syringe 40 mg (0.4 mL) subcut DAILY 5 days #2 mL 04/25/23 04/26/23 1132 <Electronically signed by Ash cook> Date _ Ash Jones Signature (if applicable): Date CC: ~ Signed [facility] Work Phone: Evaluation note* Diagnosis Attention deficit hyperactivity disorder (ADHD), predominantly hyperactive type [facility] Diagnosis Allergic conjunctivitis of both eyes Other chronic allergic conjunctivitis [facility] Diagnosis Attention deficit hyperactivity disorder (ADHD), predominantly hyperactive type [facility] Diagnosis Attention deficit hyperactivity disorder (ADHD), predominantly hyperactive type [facility] Diagnosis Attention deficit hyperactivity disorder (ADHD), predominantly hyperactive type- Primary Screening for diabetes mellitus Screening cholesterol level Screening for lipoid disorders documented in this encounter [facility] note* Diagnosis Allergic conjunctivitis of both eyes Other chronic allergic conjunctivitis [facility] Diagnosis Pharyngitis, unspecified etiology- Primary [facility] Diagnosis Hypertension, essential- Primary Unspecified essential hypertension Attention deficit hyperactivity disorder (ADHD), predominantly hyperactive type Essential hypertension Unspecified essential hypertension Chronic bilateral low back pain with bilateral sciatica Psoriasis Other psoriasis Need for influenza vaccination Need for prophylactic vaccination and inoculation against influenza Obesity, Class III, BMI 40-49.9 (morbid obesity) (HCC) Morbid obesity documented in this encounter [facility] note* Diagnosis Allergic conjunctivitis of both eyes Other chronic allergic conjunctivitis [facility] Diagnosis Acute cough- Primary [facility] Diagnosis Attention deficit hyperactivity disorder (ADHD), predominantly hyperactive type [facility] Diagnosis Attention deficit hyperactivity disorder (ADHD), predominantly hyperactive type [facility]* Diagnosis Sore throat- Primary Acute pharyngitis Rhinosinusitis Unspecified sinusitis (chronic) documented in this encounter [facility] note* Diagnosis Depression, unspecified depression type- Primary Tearfulness Other general symptoms Difficulty sleeping Sleep disturbance, unspecified Irritability and anger Irritability [facility] Diagnosis Allergic conjunctivitis of both eyes Other chronic allergic conjunctivitis [facility] Diagnosis Chronic bilateral low back pain with bilateral sciatica [facility] Diagnosis Attention deficit hyperactivity disorder (ADHD), predominantly hyperactive type- Primary Essential hypertension Unspecified essential hypertension Chronic bilateral low back pain with bilateral sciatica Current mild episode of major depressive disorder, unspecified whether recurrent (HCC) [facility]* Diagnosis Attention deficit hyperactivity disorder (ADHD), predominantly hyperactive type [facility] Diagnosis Attention deficit hyperactivity disorder (ADHD), predominantly hyperactive type [facility] Diagnosis Attention deficit hyperactivity disorder (ADHD), predominantly hyperactive type [facility] Diagnosis Attention deficit hyperactivity disorder (ADHD), predominantly hyperactive type Attention deficit hyperactivity disorder (ADHD), predominantly hyperactive type- Primary [facility] Diagnosis Attention deficit hyperactivity disorder (ADHD), predominantly hyperactive type- Primary Essential hypertension Unspecified essential hypertension Chronic bilateral low back pain with bilateral sciatica Depression, unspecified depression type Screening for lipid disorders [facility]* Diagnosis Localized swelling of both lower legs Essential hypertension Unspecified essential hypertension [facility] Diagnosis Onset Date Resolution Status Acute dehydration acute Ventral hernia with obstruction but no gangrene acute [facility] Work Phone: Evaluation note* Diagnosis Onset Date Resolution Status Acute dehydration acute Ventral hernia with obstruction but no gangrene acute History of umbilical hernia repair acute Leukocytosis acute Post-operative nausea and vomiting acute Postoperative fever acute Small bowel obstruction acut e [facility] Work Phone: Evaluation note* Diagnosis Essential hypertension- Primary Unspecified essential hypertension Chronic bilateral low back pain with bilateral sciatica Attention deficit hyperactivity disorder (ADHD), predominantly hyperactive type [facility] Diagnosis Hypertension, essential Unspecified essential hypertension [facility] Diagnosis Elevated glucose- Primary Other abnormal glucose Elevated liver enzymes Other nonspecific abnormal serum enzyme levels [facility] Diagnosis Attention deficit hyperactivity disorder (ADHD), predominantly hyperactive type [facility] Diagnosis Attention deficit hyperactivity disorder (ADHD), predominantly hyperactive type [facility] Diagnosis Attention deficit hyperactivity disorder (ADHD), predominantly hyperactive type [facility] Diagnosis Attention deficit hyperactivity disorder (ADHD), predominantly hyperactive type [facility] Diagnosis Attention deficit hyperactivity disorder (ADHD), predominantly hyperactive type [facility] Diagnosis Localized swelling of both lower legs Essential hypertension Unspecified essential hypertension [facility] Diagnosis Localized swelling of both lower legs Essential hypertension Unspecified essential hypertension [facility]* Diagnosis Acute non-recurrent sinusitis, unspecified location- Primary [facility]* Diagnosis Attention deficit hyperactivity disorder (ADHD), predominantly hyperactive type- Primary Essential hypertension Unspecified essential hypertension Current mild episode of major depressive disorder, unspecified whether recurrent (HCC) Poison luz dermatitis Contact dermatitis and other eczema due to plants (except food) [facility] Diagnosis Attention deficit hyperactivity disorder (ADHD), predominantly hyperactive type [facility] Diagnosis Chronic bilateral low back pain with bilateral sciatica [facility] Diagnosis Current mild episode of major depressive disorder, unspecified whether recurrent (HCC) [facility] Diagnosis Current mild episode of major depressive disorder, unspecified whether recurrent (HCC) [facility] Diagnosis Attention deficit hyperactivity disorder (ADHD), predominantly hyperactive type [facility] Diagnosis Blister of toe, left, subsequent encounter- Primary [facility]* Diagnosis Attention deficit hyperactivity disorder (ADHD), predominantly hyperactive type [facility] Diagnosis Acute bilateral low back pain with bilateral sciatica- Primary [facility] Diagnosis Skin ulcer of toe, limited to breakdown of skin, unspecified laterality (HCC)- Primary Callus of foot Corns and callosities [facility]* Diagnosis Dermatitis- Primary Contact dermatitis and other eczema, due to unspecified cause Essential hypertension Unspecified essential hypertension [facility] Diagnosis Allergic conjunctivitis of both eyes Other chronic allergic conjunctivitis [facility] Diagnosis Attention deficit hyperactivity disorder (ADHD), predominantly hyperactive type [facility] Diagnosis Allergic conjunctivitis of both eyes Other chronic allergic conjunctivitis [facility] Diagnosis Skin ulcer of toe, limited to breakdown of skin, unspecified laterality (HCC)- Primary Callus of foot Corns and callosities [facility] Diagnosis Abscess or cellulitis of toe, left [facility] Diagnosis Skin ulcer of toe, limited to breakdown of skin, unspecified laterality (HCC)- Primary Callus of foot Corns and callosities Blister of toe of left foot, initial encounter [facility]* Diagnosis Attention deficit hyperactivity disorder (ADHD), predominantly hyperactive type- Primary [facility] Diagnosis Acute cough [facility]* Diagnosis Difficulty sleeping- Primary Sleep disturbance, unspecified Weight gain Abnormal weight gain Snoring Other dyspnea and respiratory abnormality Essential hypertension Unspecified essential hypertension [facility]* Diagnosis Prediabetes- Primary Other abnormal glucose Hyperlipidemia, unspecified hyperlipidemia type Morbid obesity with BMI of 50.0-59.9, adult (HCC) Morbid obesity [facility]* Diagnosis BMI 50.0-59.9, adult (HCC)- Primary Body Mass Index 50.0-59.9, adult Obesity, Class III, BMI 40-49.9 (morbid obesity) (HCC) Morbid obesity Prediabetes Other abnormal glucose Elevated hemoglobin A1c Other abnormal blood chemistry [facility]* Diagnosis Attention deficit hyperactivity disorder (ADHD), predominantly hyperactive type [facility] Diagnosis Ulcer of toe of left foot, limited to breakdown of skin (HCC) [facility] Diagnosis Ulcer of toe of left foot, limited to breakdown of skin (HCC)- Primary [facility]* Diagnosis Hypertension, essential Unspecified essential hypertension Attention deficit hyperactivity disorder (ADHD), predominantly hyperactive type- Primary Morbid obesity with BMI of 50.0-59.9, adult (HCC) Morbid obesity Hyperlipidemia, unspecified hyperlipidemia type Prediabetes Other abnormal glucose Depression, unspecified depression type Hypertension, essential Unspecified essential hypertension [facility]* Diagnosis Attention deficit hyperactivity disorder (ADHD), predominantly hyperactive type- Primary Hyperlipidemia, unspecified hyperlipidemia type Prediabetes Other abnormal glucose Depression, unspecified depression type Hypertension, essential Unspecified essential hypertension Encounter for immunization Need for other specified prophylactic vaccination against single bacterial disease BMI 50.0-59.9, adult (HCC) Body Mass Index 50.0-59.9, adult Elevated hemoglobin A1c Other abnormal blood chemistry Difficulty sleeping Sleep disturbance, unspecified [facility]* Diagnosis Attention deficit hyperactivity disorder (ADHD), predominantly hyperactive type [facility] Diagnosis Ulcer of toe of left foot, limited to breakdown of skin (HCC) documented in this encounter [facility] note* Diagnosis Ulcer of toe of left foot, limited to breakdown of skin ([facility])- Primary Posterior tibial tendon dysfunction Other disorders of synovium, tendon, and bursa Ulcer of toe of left foot, limited to breakdown of skin ([facility]) [facility]* Diagnosis Chronic bilateral low back pain with bilateral sciatica [facility]* Diagnosis Ulcer of toe of left foot, limited to breakdown of skin ([facility])- Primary Callus of foot Corns and callosities Posterior tibial tendon dysfunction Other disorders of synovium, tendon, and bursa [facility]* Diagnosis Obesity, Class III, BMI 40-49.9 (morbid obesity) ([facility])- Primary Morbid obesity [facility]* Diagnosis Prediabetes Other abnormal glucose BMI 50.0-59.9, adult ([facility]) Body Mass Index 50.0-59.9, adult Elevated hemoglobin A1c Other abnormal blood chemistry [facility]* Diagnosis Attention deficit hyperactivity disorder (ADHD), predominantly hyperactive type [facility] Diagnosis Ulcer of toe of left foot, limited to breakdown of skin ([facility])- Primary Callus of foot Corns and callosities [facility] Diagnosis Prediabetes Other abnormal glucose BMI 50.0-59.9, adult ([facility]) Body Mass Index 50.0-59.9, adult Elevated hemoglobin A1c Other abnormal blood chemistry [facility]* Diagnosis Difficulty sleeping Sleep disturbance, unspecified [facility] Diagnosis Ulcer of toe of left foot, limited to breakdown of skin ([facility])- Primary Callus of foot Corns and callosities Posterior tibial tendon dysfunction Other disorders of synovium, tendon, and bursa [facility] Diagnosis Attention deficit hyperactivity disorder (ADHD), predominantly hyperactive type- Primary Difficulty sleeping Sleep disturbance, unspecified Prediabetes Other abnormal glucose Current mild episode of major depressive disorder, unspecified whether recurrent ([facility]) Class 3 severe obesity with body mass index (BMI) of 45.0 to 49.9 in adult, unspecified obesity type, unspecified whether serious comorbidity present ([facility]) Hypertension, essential Unspecified essential hypertension [facility] Diagnosis Localized swelling of both lower legs Essential hypertension Unspecified essential hypertension [facility] Diagnosis Superficial injury of gum with infection, initial encounter- Primary documented in this encounter [facility] note* Diagnosis Attention deficit hyperactivity disorder (ADHD), predominantly hyperactive type documented in this encounter [facility] note* Diagnosis Attention deficit hyperactivity disorder (ADHD), predominantly hyperactive type documented in this encounter [facility] note* Diagnosis Current mild episode of major depressive disorder, unspecified whether recurrent Class 3 severe obesity with body mass index (BMI) of 45.0 to 49.9 in adult, unspecified obesity type, unspecified whether serious comorbidity present- Primary Hypertension, essential Unspecified essential hypertension Attention deficit hyperactivity disorder (ADHD), predominantly hyperactive type documented in this encounter [facility] note* Diagnosis Essential hypertension- Primary Unspecified essential hypertension Screening for depression Encounter for screening examination for other mental health and behavioral disorders Attention deficit hyperactivity disorder (ADHD), predominantly hyperactive type Chronic bilateral low back pain with bilateral sciatica Obesity, Class III, BMI 40-49.9 (morbid obesity) Morbid obesity Depression, major, single episode, moderate (HCC) Major depressive disorder, single episode, moderate Seasonal allergic rhinitis, unspecified trigger [facility] Diagnosis Sciatica, right side- Primary Bilateral leg cramps Sciatica, right side Bilateral leg cramps documented in this encounter [facility] note* Diagnosis Sciatica, right side Bilateral leg cramps documented in this encounter [facility] note* Diagnosis Attention deficit hyperactivity disorder (ADHD), predominantly hyperactive type- Primary Essential hypertension Unspecified essential hypertension Obesity, Class III, BMI 40-49.9 (morbid obesity) (HCC) Morbid obesity Seasonal allergic rhinitis, unspecified trigger Bilateral sciatica Sciatica [facility]* Diagnosis Eczema, dyshidrotic- Primary Dyshidrosis Hypertension, essential Unspecified essential hypertension Attention deficit hyperactivity disorder (ADHD), predominantly hyperactive type Obesity, Class III, BMI 40-49.9 (morbid obesity) (HCC) Morbid obesity MARJ (obstructive sleep apnea) Obstructive sleep apnea (adult) (pediatric) Edema of toe Edema Pre-op exam Preoperative examination, unspecified Iron deficiency anemia, unspecified iron deficiency anemia type documented in this encounter [facility] note* Diagnosis Iron deficiency anemia due to chronic blood loss- Primary Iron deficiency anemia secondary to blood loss (chronic) [facility] Author Tejas Genao [facility] April 17, 2023 4:45pm Note Date/Time April 17, 2023 4:45pm [facility] Medical Records Department [address] [place] [address] H&P Exam - Surgical 04/17/23 1643 MR#: [id number] Acct: [id number] Name: MAYUR WORTHINGTON Rep #:[id number] 3 : 1985 37 From: Tejas perez MD PCP: Dr. Marvin Sheets MD Status:RE G ER Location: ED HPI - General HPI Narrative MAYUR WORTHINGTON, is a 37 M who presents with pain and nausea and vomiting. Patient says this started today. Patient says he noted his hernia about a week ago. This is the first time he is noticed it. The emergency room physician reduce his hernia and he reports he is feeling better. He is not nauseous currently. [facility] Home Medications etodolac 300 mg capsule 300 mg PO TIDCM ##30 12/03/15 [Rx Last Taken Unknown] lisdexamfetamine 70 mg capsule (Vyvanse) 70 mg PO DAILY 12/03/15 [History Last Taken Unknown] prednisone 10 mg tablet 10 mg PO DAILY 12/03/15 [History Last Taken Unknown] Allergy/AdvReac Type Severity Reaction Status Date / Time latex Allergy Rash Verified 04/17/23 14:51 Social History Smoking Status: Former smoker ROS Constitutional Constitutional: Reports anorexia; Denies fatigue or fever(s) Eyes Eyes: Denies blurry vision ENT HEENT: Denies abnormal hearing Cardiovascular Cardiovascular: Denies chest pain Respiratory/Chest Respiratory/Chest: Denies cough or dyspnea Gastrointestinal Gastrointestinal: Reports abdominal pain, nausea and vomiting; Denies coffee ground emesis or rectal bleeding Genitourinary Genitourinary: Denies difficulty urinating Musculoskeletal Musculoskeletal: Denies abnormal gait Integumentary Integumentary: Denies jaundice Neurologic Neurologic: Denies dizziness Vital Signs Vital Signs Vital Signs: 04/17/23 14:49 Temperature 96 F L Temperature Source Temporal Pulse Rate 127 H Respiratory Rate 18 Blood Pressure 168/110 H Blood Pressure Mean 129 Pulse Ox 93 Oxygen Delivery Method Room Air Weight Weight: 391 lb Body Mass Index (BMI) 50.2 Physical Exam Const oriented x3 and no apparent distress Resp normal respiratory effort Cardio regular rhythm Rate: tachycardic GI soft to palpation GI Narrative: Patient's abdomen is soft and obese. He has a hernia at the umbilicus which does not contain any bowel currently. He is tender at the hernia but the rest the abdomen is nontender. Results Lab / Micro Data 04/17/23 15:35 04/17/23 15:35 Labs: Laboratory Results - last 24 hr 04/17/23 15:35: WBC 12.8 H, RBC 6.48 H, Hgb 17.3 H, Hct 51.9, MCV 80.1, MCH 26.7L, MCHC 33.3, RDW Std Deviation 45.0 H, RDW Coeff of Kiet 16.3 H, Plt Count 202, MPV 10.2, Immature Gran % (Auto) 0.300, Neut % (Auto) 82.5 H, Lymph % (Auto) 5.5L, [place] % (Auto) 10.9 H, Eos % (Auto) 0.5, Baso % (Auto) 0.3, Absolute Neuts (auto) 10.6 H, Absolute Lymphs (auto) 0.70 L, Nucleated RBC % 0, Sodium 137, Potassium 3.5, Chloride 101, Carbon Dioxide 29.0, Anion Gap 7, BUN 27 H, Creatinine 1.15, Estim Creat Clear Calc 104.24, Est GFR (MDRD) Af Amer 93, Est GFR (MDRD) Non-Af 77, BUN/Creatinine Ratio 23.5 H, Glucose 142 H, Lactic Acid 1.4, Calcium 9.4, Total Bilirubin 1.20 H, AST 41 H, ALT 86 H, Alkaline Phosphatase 103, Total Protein 8.2, Albumin 4.2, Globulin 4.0, Albumin/Globulin Ratio 1.0, Lipase 27 Assessment & Plan Assessment/Plan (1) Ventral hernia with obstruction but no gangrene: PLAN: Patient was here with pain and nausea and vomiting. CT scan revealed distended proximal small bowel with transition point at the hernia. The physician in the emergency room was able to reduce the hernia. The patient sayshe feels better. I will admit him to the floor for observation and keep n.p.o. until he passes gas. I plan on repairing the hernia on Wednesday laparoscopically. I discussed laparoscopic ventral hernia repair with mesh in detail with the patient. I discussed the risks such as bleeding, infection, injury to underlying organs. Patient understands the risks and is when to proceed. Tejas Genao MD Pager: [facility] [address] [place] [address], [address] [place] [address] Office: 04/17/23 1645 <Electronically signed by Tejas Genao MD> Cosigner Signature (if applicable): CC: Dr. Tejas Genao MD; Dr. Marvin Sheets MD~ Signed [facility] Work Phone: [facility] Diagnostic Procedure Only (Routine) - Closed Specialty Diagnoses / Procedures Referred By Contac t Referred To Contact XR IMAGING Diagnoses Abscess or cellulitis of toe, left Procedures XR TOE AP/LAT/OBL LEFT RADEX TOE MINIMUM 2 VIEWS Tangela Conteh APRN.CNP [address] [place] [address] [place] [address] Referral ID Status Reason Start Date Expiration Date V isits Requested Visits Authorized [id number] Closed Auto-Generate d Referral 07/19/2023 08/17/2024 1 1 [facility] for referral (narrative)* Diagnostic Procedure Only (Routine) - Closed Specialty Diagnoses / Procedures Referred By Contac t Referred To Contact XR IMAGING Diagnoses Ulcer of toe of left foot, limited to breakdown of skin (HCC) Procedures XR FOOT GENERAL 3V AP/LAT/OBL BILATERAL RADEX FOOT COMPLETE MINIMUM 3 VIEWS Shivam Cunningham [address] [place] [address] [place] [address] Referral ID Status Reason Start Date Expiration Date V isits Requested Visits Authorized [id number] Closed Auto-Generate d Referral 06/06/2024 07/06/2025 1 1 [facility] for referral (narrative)* Diagnostic Procedure Only (Urgent) - Closed Specialty Diagnoses / Procedures Referred By Contac t Referred To Contact XR IMAGING Diagnoses Ulcer of toe of left foot, limited to breakdown of skin (HCC) Procedures XR FOOT GENERAL 3V AP/LAT/OBL LEFT RADEX FOOT COMPLETE MINIMUM 3 VIEWS Shivam Cunningham [address] [address] [place] [address] Referral ID Status Reason Start Date Expiration Date V isits Requested Visits Authorized [id number] Closed Auto-Generate d Referral 06/23/2024 07/23/2025 1 1 [facility] for referral (narrative)* Diagnostic Procedure Only (Urgent) - Closed Specialty Diagnoses / Procedures Referred By Contac t Referred To Contact XR IMAGING Diagnoses Ulcer of toe of left foot, limited to breakdown of skin (HCC) Procedures XR FOOT GENERAL 3V AP/LAT/OBL LEFT RADEX FOOT COMPLETE MINIMUM 3 VIEWS Shivam Cunningham [address] [id number] [place] [address] Referral ID Status Reason Start Date Expiration Date V isits Requested Visits Authorized [id number] Closed Auto-Generate d Referral 06/23/2024 07/23/2025 1 1 [facility] for referral (narrative)No reason for referral [facility] Work Phone: Reason for visit Narrative* Diagnostic Procedure Only (Routine) - Closed Specialty Diagnoses / Procedures Referred By Contac t Referred To Contact XR IMAGING Diagnoses Abscess or cellulitis of toe, left Procedures XR TOE AP/LAT/OBL LEFT RADEX TOE MINIMUM 2 VIEWS Tangela Conteh, [employer].PRODUCT PROMOTER SALES PERSON [address] [place] [address] [place] [address] Referral ID Status Reason Start Date Expiration Date V isits Requested Visits Authorized [id number] Closed Auto-Generate d Referral 07/19/2023 08/17/2024 1 1 [facility] for visit Narrative* Diagnostic Procedure Only (Routine) - Closed Specialty Diagnoses / Procedures Referred By Contac t Referred To Contact XR IMAGING Diagnoses Ulcer of toe of left foot, limited to breakdown of skin (HCC) Procedures XR FOOT GENERAL 3V AP/LAT/OBL BILATERAL RADEX FOOT COMPLETE MINIMUM 3 VIEWS Shivam Cunningham [address] [address] [place] [address] Referral ID Status Reason Start Date Expiration Date V isits Requested Visits Authorized [id number] Closed Auto-Generate d Referral 06/06/2024 07/06/2025 1 1 [facility] for visit Narrative* Diagnostic Procedure Only (Urgent) - Closed Specialty Diagnoses / Procedures Referred By Contac t Referred To Contact XR IMAGING Diagnoses Ulcer of toe of left foot, limited to breakdown of skin (HCC) Procedures XR FOOT GENERAL 3V AP/LAT/OBL LEFT RADEX FOOT COMPLETE MINIMUM 3 VIEWS Shivam Cunningham [address] [address] [place] [address] Referral ID Status Reason Start Date Expiration Date V isits Requested Visits Authorized [id number] Closed Auto-Generate d Referral 06/23/2024 07/23/2025 1 1 [facility] for visit Narrative* Diagnostic Procedure Only (Urgent) - Closed Specialty Diagnoses / Procedures Referred By Contac t Referred To Contact XR IMAGING Diagnoses Sciatica, right side Bilateral leg cramps Procedures XR LUMBAR GENERAL 3V AP/LAT/L5-S1 RADEX SPINE LUMBOSACRAL 2/3 VIEWS Tamera Rain [employer] PRESSER.PRODUCT PROMOTER SALES PERSON [address] [place] [address] Phone: tel: fax: [place] [address] Referral ID Status Reason Start Date Expiration Date V isits Requested Visits Authorized [id number] Closed Auto-Generate d Referral 01/01/2025 01/31/2026 1 1 [facility] Concerns Infection Onset Date Last Indicated Resolved Time COVID-19 Confirmed 08/10/2022 08/10/2022 Chief Complaint and Reason for Visit Chief Complaint ABD PAIN VENTRAL HERNIA WITH OBSTRUCTION Reason for Visit Acute dehydration Ventral hernia with obstruction but no gangrene Chief Complaint ABD PAIN VENTRAL HERNIA WITH OBSTRUCTION VENTRAL HERNIA WITH OBSTRUCTION VENTRAL HERNIA WITH OBSTRUCTION VENTRAL HERNIA WITH OBSTRUCTION Reason for Visit Acute dehydration Ventral hernia with obstruction but no gangrene Chief Complaint ABD PAIN VENTRAL HERNIA WITH OBSTRUCTION VENTRAL HERNIA WITH OBSTRUCTION VENTRAL HERNIA WITH OBSTRUCTION VENTRAL HERNIA WITH OBSTRUCTION SBO, POST OPERATIVE N/V POSTOPERATIVE NAUSEA AND VOMITING POSTOPERATIVE NAUSEA AND VOMITING POSTOPERATIVE NAUSEA AND VOMITING POSTOPERATIVE NAUSEA AND VOMITING POSTOPERATIVE NAUSEA AND VOMITING POSTOPERATIVE NAUSEA AND VOMITING POSTOPERATIVE NAUSEA AND VOMITING POSTOPERATIVE NAUSEA AND VOMITING POSTOPERATIVE NAUSEA AND VOMITING POSTOPERATIVE NAUSEA AND VOMITING Reason for Visit Acute dehydration Ventral hernia with obstruction but no gangrene History of umbilical hernia repair Leukocytosis Post-operative nausea and vomiting Postoperative fever Small bowel obstruction Chief Complaint Admit Date wound February 28, 2025 1:42 pm Reason for Visit Admit Date Pain in left toe(s) February 28, 2025 1:42 pm Non-pressure chronic ulcer o f other part of left foot with fat layer exposed February 28, 2025 1:42pm Chief Complaint Admit Date wound February 28, 2025 1:42 pm L HALLUX ULCER March 06, 2025 10: 04am wound March 14, 2025 2: 00pm Reason for Visit Admit Date Pain in left toe(s) February 28, 2025 1:42 pm Non-pressure chronic ulcer o f other part of left foot with fat layer exposed February 28, 2025 1:42pm 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 March 14, 2025 2:00pm Chief Complaint Admit Date wound February 28, 2025 1:42 pm L HALLUX ULCER March 06, 2025 10: 04am wound March 28, 2025 2: 00pm Reason for Visit Admit Date Pain in left toe(s) February 28, 2025 1:42 pm Non-pressure chronic ulcer o f other part of left foot with fat layer exposed February 28, 2025 1:42pm Osteoarthritis of left foot March 28, 2025 2:00pm 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 March 28, 2025 2:00pm Advance Directives No Advanced Directives Records Found Advance Directive Response Recorded Date/ Time Living Will No April 17, 2023 2:59pm Power of [employer] Sales Consultant No April 2:59pm Advance Directive Response Recorded Date/ Time Living Will No April 17, 2023 5:51pm Power of [employer] Sales Consultant No April 5:51pm Advance Directive Response Recorded Date/ Time Living Will No April 21, 2023 7:40am Power of [employer] Sales Consultant No April 7:40am Reason for Referral Specialty Diagnoses / Procedures Referred By Contac t Referred To Contact Podiatry Diagnoses Blister of toe, left, subsequent encounter Procedures CONSULT TO PODIATRY OFFICE/OUTPATIENT [facility] 60 MINUTES Clemente Negro 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 [address] [place] [address] Referral ID Status Reason Start Date Expiration Date Visits Requested Visits Authorized [id number] Authorized PCP Requested Referral 01/31/2024 01/30/2025 1 1 Specialty Diagnoses / Procedures Referred By Contac t Referred To Contact Dermatology Diagnoses Blister of toe, left, subsequent encounter Procedures CONSULT TO DERMATOLOGY Clemente Negro 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 [address] [place] [address] Referral ID Status Reason Start Date Expiration Date Visits Requested Visits Authorized [id number] Ref Not Required PCP Requested Referral 01/31/2024 01/30/2025 1 1 Specialty Diagnoses / Procedures Referred By Contac t Referred To Contact Diagnoses Prediabetes Morbid obesity with BMI of 50.0-59.9, adult (HCC) Tiffanie Gillis 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 [address] [place] [address] Referral ID Status Reason Start Date Expiration Date Visits Re quested Visits Authorized [id number] Denied 05/12/2024 07/11/2024 1 1 Specialty Diagnoses / Procedures Referred By Contac t Referred To Contact Diagnoses BMI 50.0-59.9, adult (HCC) Prediabetes Elevated hemoglobin A1c 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 Gillis 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 [address] [place] [address] Referral ID Status Reason Start Date Expiration Date V isits Requested Visits Authorized [id number] Authorized 05/15/2024 12/11/2024 1 1 Summary Purpose Family History No Family History Records FoundNo Family History Records Found Additional Source Comments Source Comments (unrecognize d section and content) In the event this informatio n is protected by the Federal Confidentiality of Alcohol and Drug Abuse Patient Records regulations: The Federal rules restrict any use of the information to criminally investigate or prosecute any alcohol or drug abuse patient.[facility] the event this information is protected by the Federal Confidentiality of Alcohol and Drug Abuse Patient Records regulations: The Federal rules restrict any use of the information to criminally investigate or prosecute any alcohol or drug abuse patient.[facility] the event this information is protected by the Federal Confidentiality of Alcohol and Drug Abuse Patient Records regulations: The Federal rules restrict any use of the information to criminally investigate or prosecute any alcohol or drug abuse patient.[facility] the event this information is protected by the Federal Confidentiality of Alcohol and Drug Abuse Patient Records regulations: The Federal rules restrict any use of the information to criminally investigate or prosecute any alcohol or drug abuse patient.[facility] the event this information is protected by the Federal Confidentiality of Alcohol and Drug Abuse Patient Records regulations: The Federal rules restrict any use of the information to criminally investigate or prosecute any alcohol or drug abuse patient.[facility] the event this information is protected by the Federal Confidentiality of Alcohol and Drug Abuse Patient Records regulations: The Federal rules restrict any use of the information to criminally investigate or prosecute any alcohol or drug abuse patient.[facility] the event this information is protected by the Federal Confidentiality of Alcohol and Drug Abuse Patient Records regulations: The Federal rules restrict any use of the information to criminally investigate or prosecute any alcohol or drug abuse patient.[facility] the event this information is protected by the Federal Confidentiality of Alcohol and Drug Abuse Patient Records regulations: The Federal rules restrict any use of the information to criminally investigate or prosecute any alcohol or drug abuse patient.[facility] the event this information is protected by the Federal Confidentiality of Alcohol and Drug Abuse Patient Records regulations: The Federal rules restrict any use of the information to criminally investigate or prosecute any alcohol or drug abuse patient.[facility] the event this information is protected by the Federal Confidentiality of Alcohol and Drug Abuse Patient Records regulations: The Federal rules restrict any use of the information to criminally investigate or prosecute any alcohol or drug abuse patient.[facility] the event this information is protected by the Federal Confidentiality of Alcohol and Drug Abuse Patient Records regulations: The Federal rules restrict any use of the information to criminally investigate or prosecute any alcohol or drug abuse patient.[facility] the event this information is protected by the Federal Confidentiality of Alcohol and Drug Abuse Patient Records regulations: The Federal rules restrict any use of the information to criminally investigate or prosecute any alcohol or drug abuse patient.[facility] the event this information is protected by the Federal Confidentiality of Alcohol and Drug Abuse Patient Records regulations: The Federal rules restrict any use of the information to criminally investigate or prosecute any alcohol or drug abuse patient.[facility] the event this information is protected by the Federal Confidentiality of Alcohol and Drug Abuse Patient Records regulations: The Federal rules restrict any use of the information to criminally investigate or prosecute any alcohol or drug abuse patient.[facility] the event this information is protected by the Federal Confidentiality of Alcohol and Drug Abuse Patient Records regulations: The Federal rules restrict any use of the information to criminally investigate or prosecute any alcohol or drug abuse patient.[facility] the event this information is protected by the Federal Confidentiality of Alcohol and Drug Abuse Patient Records regulations: The Federal rules restrict any use of the information to criminally investigate or prosecute any alcohol or drug abuse patient.[facility] the event this information is protected by the Federal Confidentiality of Alcohol and Drug Abuse Patient Records regulations: The Federal rules restrict any use of the information to criminally investigate or prosecute any alcohol or drug abuse patient.[facility] the event this information is protected by the Federal Confidentiality of Alcohol and Drug Abuse Patient Records regulations: The Federal rules restrict any use of the information to criminally investigate or prosecute any alcohol or drug abuse patient.[facility] the event this information is protected by the Federal Confidentiality of Alcohol and Drug Abuse Patient Records regulations: The Federal rules restrict any use of the information to criminally investigate or prosecute any alcohol or drug abuse patient.[facility] the event this information is protected by the Federal Confidentiality of Alcohol and Drug Abuse Patient Records regulations: The Federal rules restrict any use of the information to criminally investigate or prosecute any alcohol or drug abuse patient.[facility] the event this information is protected by the Federal Confidentiality of Alcohol and Drug Abuse Patient Records regulations: The Federal rules restrict any use of the information to criminally investigate or prosecute any alcohol or drug abuse patient.[facility] the event this information is protected by the Federal Confidentiality of Alcohol and Drug Abuse Patient Records regulations: The Federal rules restrict any use of the information to criminally investigate or prosecute any alcohol or drug abuse patient.[facility] the event this information is protected by the Federal Confidentiality of Alcohol and Drug Abuse Patient Records regulations: The Federal rules restrict any use of the information to criminally investigate or prosecute any alcohol or drug abuse patient.[facility] the event this information is protected by the Federal Confidentiality of Alcohol and Drug Abuse Patient Records regulations: The Federal rules restrict any use of the information to criminally investigate or prosecute any alcohol or drug abuse patient.[facility] HospitalIn the event this information is protected by the Federal Confidentiality of Alcohol and Drug Abuse Patient Records regulations: The Federal rules restrict any use of the information to criminally investigate or prosecute any alcohol or drug abuse patient.[facility] HospitalIn the event this information is protected by the Federal Confidentiality of Alcohol and Drug Abuse Patient Records regulations: The Federal rules restrict any use of the information to criminally investigate or prosecute any alcohol or drug abuse patient.[facility] HospitalIn the event this information is protected by the Federal Confidentiality of Alcohol and Drug Abuse Patient Records regulations: The Federal rules restrict any use of the information to criminally investigate or prosecute any alcohol or drug abuse patient.[facility] HospitalIn the event this information is protected by the Federal Confidentiality of Alcohol and Drug Abuse Patient Records regulations: The Federal rules restrict any use of the information to criminally investigate or prosecute any alcohol or drug abuse patient.[facility] HospitalIn the event this information is protected by the Federal Confidentiality of Alcohol and Drug Abuse Patient Records regulations: The Federal rules restrict any use of the information to criminally investigate or prosecute any alcohol or drug abuse patient.[facility] HospitalIn the event this information is protected by the Federal Confidentiality of Alcohol and Drug Abuse Patient Records regulations: The Federal rules restrict any use of the information to criminally investigate or prosecute any alcohol or drug abuse patient.[facility] HospitalIn the event this information is protected by the Federal Confidentiality of Alcohol and Drug Abuse Patient Records regulations: The Federal rules restrict any use of the information to criminally investigate or prosecute any alcohol or drug abuse patient.[facility] HospitalIn the event this information is protected by the Federal Confidentiality of Alcohol and Drug Abuse Patient Records regulations: The Federal rules restrict any use of the information to criminally investigate or prosecute any alcohol or drug abuse patient.[facility] HospitalIn the event this information is protected by the Federal Confidentiality of Alcohol and Drug Abuse Patient Records regulations: The Federal rules restrict any use of the information to criminally investigate or prosecute any alcohol or drug abuse patient.[facility] HospitalIn the event this information is protected by the Federal Confidentiality of Alcohol and Drug Abuse Patient Records regulations: The Federal rules restrict any use of the information to criminally investigate or prosecute any alcohol or drug abuse patient.[facility] HospitalIn the event this information is protected by the Federal Confidentiality of Alcohol and Drug Abuse Patient Records regulations: The Federal rules restrict any use of the information to criminally investigate or prosecute any alcohol or drug abuse patient.[facility] HospitalIn the event this information is protected by the Federal Confidentiality of Alcohol and Drug Abuse Patient Records regulations: The Federal rules restrict any use of the information to criminally investigate or prosecute any alcohol or drug abuse patient.[facility] HospitalIn the event this information is protected by the Federal Confidentiality of Alcohol and Drug Abuse Patient Records regulations: The Federal rules restrict any use of the information to criminally investigate or prosecute any alcohol or drug abuse patient.[facility] HospitalIn the event this information is protected by the Federal Confidentiality of Alcohol and Drug Abuse Patient Records regulations: The Federal rules restrict any use of the information to criminally investigate or prosecute any alcohol or drug abuse patient.[facility] HospitalIn the event this information is protected by the Federal Confidentiality of Alcohol and Drug Abuse Patient Records regulations: The Federal rules restrict any use of the information to criminally investigate or prosecute any alcohol or drug abuse patient.[facility] HospitalIn the event this information is protected by the Federal Confidentiality of Alcohol and Drug Abuse Patient Records regulations: The Federal rules restrict any use of the information to criminally investigate or prosecute any alcohol or drug abuse patient.[facility] HospitalIn the event this information is protected by the Federal Confidentiality of Alcohol and Drug Abuse Patient Records regulations: The Federal rules restrict any use of the information to criminally investigate or prosecute any alcohol or drug abuse patient.[facility] HospitalIn the event this information is protected by the Federal Confidentiality of Alcohol and Drug Abuse Patient Records regulations: The Federal rules restrict any use of the information to criminally investigate or prosecute any alcohol or drug abuse patient.[facility] HospitalIn the event this information is protected by the Federal Confidentiality of Alcohol and Drug Abuse Patient Records regulations: The Federal rules restrict any use of the information to criminally investigate or prosecute any alcohol or drug abuse patient.[facility] HospitalIn the event this information is protected by the Federal Confidentiality of Alcohol and Drug Abuse Patient Records regulations: The Federal rules restrict any use of the information to criminally investigate or prosecute any alcohol or drug abuse patient.[facility] HospitalIn the event this information is protected by the Federal Confidentiality of Alcohol and Drug Abuse Patient Records regulations: The Federal rules restrict any use of the information to criminally investigate or prosecute any alcohol or drug abuse patient.[facility] HospitalIn the event this information is protected by the Federal Confidentiality of Alcohol and Drug Abuse Patient Records regulations: The Federal rules restrict any use of the information to criminally investigate or prosecute any alcohol or drug abuse patient.[facility] HospitalIn the event this information is protected by the Federal Confidentiality of Alcohol and Drug Abuse Patient Records regulations: The Federal rules restrict any use of the information to criminally investigate or prosecute any alcohol or drug abuse patient.[facility] HospitalIn the event this information is protected by the Federal Confidentiality of Alcohol and Drug Abuse Patient Records regulations: The Federal rules restrict any use of the information to criminally investigate or prosecute any alcohol or drug abuse patient.[facility] HospitalIn the event this information is protected by the Federal Confidentiality of Alcohol and Drug Abuse Patient Records regulations: The Federal rules restrict any use of the information to criminally investigate or prosecute any alcohol or drug abuse patient.[facility] HospitalIn the event this information is protected by the Federal Confidentiality of Alcohol and Drug Abuse Patient Records regulations: The Federal rules restrict any use of the information to criminally investigate or prosecute any alcohol or drug abuse patient.[facility] HospitalIn the event this information is protected by the Federal Confidentiality of Alcohol and Drug Abuse Patient Records regulations: The Federal rules restrict any use of the information to criminally investigate or prosecute any alcohol or drug abuse patient.[facility] HospitalIn the event this information is protected by the Federal Confidentiality of Alcohol and Drug Abuse Patient Records regulations: The Federal rules restrict any use of the information to criminally investigate or prosecute any alcohol or drug abuse patient.[facility] HospitalIn the event this information is protected by the Federal Confidentiality of Alcohol and Drug Abuse Patient Records regulations: The Federal rules restrict any use of the information to criminally investigate or prosecute any alcohol or drug abuse patient.[facility] HospitalIn the event this information is protected by the Federal Confidentiality of Alcohol and Drug Abuse Patient Records regulations: The Federal rules restrict any use of the information to criminally investigate or prosecute any alcohol or drug abuse patient.[facility] the event this information is protected by the Federal Confidentiality of Alcohol and Drug Abuse Patient Records regulations: The Federal rules restrict any use of the information to criminally investigate or prosecute any alcohol or drug abuse patient.[facility] HospitalIn the event this information is protected by the Federal Confidentiality of Alcohol and Drug Abuse Patient Records regulations: The Federal rules restrict any use of the information to criminally investigate or prosecute any alcohol or drug abuse patient.[facility] HospitalIn the event this information is protected by the Federal Confidentiality of Alcohol and Drug Abuse Patient Records regulations: The Federal rules restrict any use of the information to criminally investigate or prosecute any alcohol or drug abuse patient.[facility]In the event this information is protected by the Federal Confidentiality of Alcohol and Drug Abuse Patient Records regulations: The Federal rules restrict any use of the information to criminally investigate or prosecute any alcohol or drug abuse patient.[facility] HospitalIn the event this information is protected by the Federal Confidentiality of Alcohol and Drug Abuse Patient Records regulations: The Federal rules restrict any use of the information to criminally investigate or prosecute any alcohol or drug abuse patient.[facility] HospitalIn the event this information is protected by the Federal Confidentiality of Alcohol and Drug Abuse Patient Records regulations: The Federal rules restrict any use of the information to criminally investigate or prosecute any alcohol or drug abuse patient.[facility] HospitalIn the event this information is protected by the Federal Confidentiality of Alcohol and Drug Abuse Patient Records regulations: The Federal rules restrict any use of the information to criminally investigate or prosecute any alcohol or drug abuse patient.[facility] HospitalIn the event this information is protected by the Federal Confidentiality of Alcohol and Drug Abuse Patient Records regulations: The Federal rules restrict any use of the information to criminally investigate or prosecute any alcohol or drug abuse patient.[facility] HospitalIn the event this information is protected by the Federal Confidentiality of Alcohol and Drug Abuse Patient Records regulations: The Federal rules restrict any use of the information to criminally investigate or prosecute any alcohol or drug abuse patient.[facility] HospitalIn the event this information is protected by the Federal Confidentiality of Alcohol and Drug Abuse Patient Records regulations: The Federal rules restrict any use of the information to criminally investigate or prosecute any alcohol or drug abuse patient.[facility] HospitalIn the event this information is protected by the Federal Confidentiality of Alcohol and Drug Abuse Patient Records regulations: The Federal rules restrict any use of the information to criminally investigate or prosecute any alcohol or drug abuse patient.[facility] HospitalIn the event this information is protected by the Federal Confidentiality of Alcohol and Drug Abuse Patient Records regulations: The Federal rules restrict any use of the information to criminally investigate or prosecute any alcohol or drug abuse patient.[facility] HospitalIn the event this information is protected by the Federal Confidentiality of Alcohol and Drug Abuse Patient Records regulations: The Federal rules restrict any use of the information to criminally investigate or prosecute any alcohol or drug abuse patient.[facility] HospitalIn the event this information is protected by the Federal Confidentiality of Alcohol and Drug Abuse Patient Records regulations: The Federal rules restrict any use of the information to criminally investigate or prosecute any alcohol or drug abuse patient.[facility] HospitalIn the event this information is protected by the Federal Confidentiality of Alcohol and Drug Abuse Patient Records regulations: The Federal rules restrict any use of the information to criminally investigate or prosecute any alcohol or drug abuse patient.[facility] HospitalIn the event this information is protected by the Federal Confidentiality of Alcohol and Drug Abuse Patient Records regulations: The Federal rules restrict any use of the information to criminally investigate or prosecute any alcohol or drug abuse patient.[facility] HospitalIn the event this information is protected by the Federal Confidentiality of Alcohol and Drug Abuse Patient Records regulations: The Federal rules restrict any use of the information to criminally investigate or prosecute any alcohol or drug abuse patient.[facility] HospitalIn the event this information is protected by the Federal Confidentiality of Alcohol and Drug Abuse Patient Records regulations: The Federal rules restrict any use of the information to criminally investigate or prosecute any alcohol or drug abuse patient.[facility] HospitalIn the event this information is protected by the Federal Confidentiality of Alcohol and Drug Abuse Patient Records regulations: The Federal rules restrict any use of the information to criminally investigate or prosecute any alcohol or drug abuse patient.[facility] HospitalIn the event this information is protected by the Federal Confidentiality of Alcohol and Drug Abuse Patient Records regulations: The Federal rules restrict any use of the information to criminally investigate or prosecute any alcohol or drug abuse patient.[facility] HospitalIn the event this information is protected by the Federal Confidentiality of Alcohol and Drug Abuse Patient Records regulations: The Federal rules restrict any use of the information to criminally investigate or prosecute any alcohol or drug abuse patient.[facility] HospitalIn the event this information is protected by the Federal Confidentiality of Alcohol and Drug Abuse Patient Records regulations: The Federal rules restrict any use of the information to criminally investigate or prosecute any alcohol or drug abuse patient.[facility] HospitalIn the event this information is protected by the Federal Confidentiality of Alcohol and Drug Abuse Patient Records regulations: The Federal rules restrict any use of the information to criminally investigate or prosecute any alcohol or drug abuse patient.[facility] HospitalIn the event this information is protected by the Federal Confidentiality of Alcohol and Drug Abuse Patient Records regulations: The Federal rules restrict any use of the information to criminally investigate or prosecute any alcohol or drug abuse patient.[facility] HospitalIn the event this information is protected by the Federal Confidentiality of Alcohol and Drug Abuse Patient Records regulations: The Federal rules restrict any use of the information to criminally investigate or prosecute any alcohol or drug abuse patient.[facility] HospitalIn the event this information is protected by the Federal Confidentiality of Alcohol and Drug Abuse Patient Records regulations: The Federal rules restrict any use of the information to criminally investigate or prosecute any alcohol or drug abuse patient.[facility] HospitalIn the event this information is protected by the Federal Confidentiality of Alcohol and Drug Abuse Patient Records regulations: The Federal rules restrict any use of the information to criminally investigate or prosecute any alcohol or drug abuse patient.[facility] HospitalIn the event this information is protected by the Federal Confidentiality of Alcohol and Drug Abuse Patient Records regulations: The Federal rules restrict any use of the information to criminally investigate or prosecute any alcohol or drug abuse patient.[facility] HospitalIn the event this information is protected by the Federal Confidentiality of Alcohol and Drug Abuse Patient Records regulations: The Federal rules restrict any use of the information to criminally investigate or prosecute any alcohol or drug abuse patient.[facility] HospitalIn the event this information is protected by the Federal Confidentiality of Alcohol and Drug Abuse Patient Records regulations: The Federal rules restrict any use of the information to criminally investigate or prosecute any alcohol or drug abuse patient.[facility] HospitalIn the event this information is protected by the Federal Confidentiality of Alcohol and Drug Abuse Patient Records regulations: The Federal rules restrict any use of the information to criminally investigate or prosecute any alcohol or drug abuse patient.[facility] HospitalIn the event this information is protected by the Federal Confidentiality of Alcohol and Drug Abuse Patient Records regulations: The Federal rules restrict any use of the information to criminally investigate or prosecute any alcohol or drug abuse patient.[facility] HospitalIn the event this information is protected by the Federal Confidentiality of Alcohol and Drug Abuse Patient Records regulations: The Federal rules restrict any use of the information to criminally investigate or prosecute any alcohol or drug abuse patient.[facility] HospitalIn the event this information is protected by the Federal Confidentiality of Alcohol and Drug Abuse Patient Records regulations: The Federal rules restrict any use of the information to criminally investigate or prosecute any alcohol or drug abuse patient.[facility] HospitalIn the event this information is protected by the Federal Confidentiality of Alcohol and Drug Abuse Patient Records regulations: The Federal rules restrict any use of the information to criminally investigate or prosecute any alcohol or drug abuse patient.[facility] HospitalIn the event this information is protected by the Federal Confidentiality of Alcohol and Drug Abuse Patient Records regulations: The Federal rules restrict any use of the information to criminally investigate or prosecute any alcohol or drug abuse patient.[facility] HospitalIn the event this information is protected by the Federal Confidentiality of Alcohol and Drug Abuse Patient Records regulations: The Federal rules restrict any use of the information to criminally investigate or prosecute any alcohol or drug abuse patient.[facility] HospitalIn the event this information is protected by the Federal Confidentiality of Alcohol and Drug Abuse Patient Records regulations: The Federal rules restrict any use of the information to criminally investigate or prosecute any alcohol or drug abuse patient.[facility] HospitalIn the event this information is protected by the Federal Confidentiality of Alcohol and Drug Abuse Patient Records regulations: The Federal rules restrict any use of the information to criminally investigate or prosecute any alcohol or drug abuse patient.[facility] HospitalIn the event this information is protected by the Federal Confidentiality of Alcohol and Drug Abuse Patient Records regulations: The Federal rules restrict any use of the information to criminally investigate or prosecute any alcohol or drug abuse patient.[facility] HospitalIn the event this information is protected by the Federal Confidentiality of Alcohol and Drug Abuse Patient Records regulations: The Federal rules restrict any use of the information to criminally investigate or prosecute any alcohol or drug abuse patient.[facility] HospitalIn the event this information is protected by the Federal Confidentiality of Alcohol and Drug Abuse Patient Records regulations: The Federal rules restrict any use of the information to criminally investigate or prosecute any alcohol or drug abuse patient.[facility] HospitalIn the event this information is protected by the Federal Confidentiality of Alcohol and Drug Abuse Patient Records regulations: The Federal rules restrict any use of the information to criminally investigate or prosecute any alcohol or drug abuse patient.[facility] HospitalIn the event this information is protected by the Federal Confidentiality of Alcohol and Drug Abuse Patient Records regulations: The Federal rules restrict any use of the information to criminally investigate or prosecute any alcohol or drug abuse patient.[facility] HospitalIn the event this information is protected by the Federal Confidentiality of Alcohol and Drug Abuse Patient Records regulations: The Federal rules restrict any use of the information to criminally investigate or prosecute any alcohol or drug abuse patient.[facility] HospitalIn the event this information is protected by the Federal Confidentiality of Alcohol and Drug Abuse Patient Records regulations: The Federal rules restrict any use of the information to criminally investigate or prosecute any alcohol or drug abuse patient.[facility] HospitalIn the event this information is protected by the Federal Confidentiality of Alcohol and Drug Abuse Patient Records regulations: The Federal rules restrict any use of the information to criminally investigate or prosecute any alcohol or drug abuse patient.[facility] HospitalIn the event this information is protected by the Federal Confidentiality of Alcohol and Drug Abuse Patient Records regulations: The Federal rules restrict any use of the information to criminally investigate or prosecute any alcohol or drug abuse patient.[facility] HospitalIn the event this information is protected by the Federal Confidentiality of Alcohol and Drug Abuse Patient Records regulations: The Federal rules restrict any use of the information to criminally investigate or prosecute any alcohol or drug abuse patient.[facility] HospitalIn the event this information is protected by the Federal Confidentiality of Alcohol and Drug Abuse Patient Records regulations: The Federal rules restrict any use of the information to criminally investigate or prosecute any alcohol or drug abuse patient.[facility] HospitalIn the event this information is protected by the Federal Confidentiality of Alcohol and Drug Abuse Patient Records regulations: The Federal rules restrict any use of the information to criminally investigate or prosecute any alcohol or drug abuse patient.[facility] HospitalIn the event this information is protected by the Federal Confidentiality of Alcohol and Drug Abuse Patient Records regulations: The Federal rules restrict any use of the information to criminally investigate or prosecute any alcohol or drug abuse patient.[facility] Reason for Visit (unrecogniz ed section and content) Reason Onset Date Comments Refill Request 11/06/2021 Reason Comments Refill Request Reason Onset Date Comments Refill Request 12/05/2021 Reason Onset Date Comments Refill Request 02/05/2022 Reason Comments Follow Up med check Reason Comments Sore Throat X1 week Reason Onset Date Comments F/U 3 Month Immunizations 05/19/2022 Flu vaccination Reason Comments Chest Congestion sinus pressure, drai nage, cough, headache x 3 weeks Reason Onset Date Comments Refill Request 08/17/2022 Reason Onset Date Comments Refill Request 09/18/2022 Reason Comments Cough Cough, runny nose, S T and congestion x 1 week Reason Comments Depression Reason Comments Nurse Triage Call Reason Onset Date Comments Refill Request 11/21/2022 Reason Comments Medication Follow-up Reason Onset Date Comments Refill Request 01/22/2023 Reason Onset Date Comments Refill Request 02/26/2023 Reason Onset Date Comments Refill Request 03/01/2023 Reason Onset Date Comments Refill Request 03/02/2023 Reason Onset Date Comments Refill Request 04/03/2023 Reason Comments F/U 3 Month Reason Comments Medication Request Reason Comments Insurance Authorization VYVAN[employer] Reason Onset Date Comments Refill Request 06/08/2023 Reason Comments Results Reason Onset Date Comments Refill Request 06/12/2023 Reason Onset Date Comments Refill Request 07/12/2023 Reason Onset Date Comments Refill Request 07/15/2023 Reason Onset Date Comments Refill Request 09/15/2023 Reason Onset Date Comments Refill Request 10/15/2023 Reason Onset Date Comments Refill Request 10/25/2023 Reason Onset Date Comments Refill Request 11/02/2023 Reason Onset Date Comments Refill Request 11/14/2023 Reason Comments Cough Cough, sinus and con gestion x 2 weeks Reason Comments F/U 6 Month Reason Onset Date Comments Refill Request 12/18/2023 Reason Onset Date Comments Refill Request 12/22/2023 Reason Onset Date Comments Refill Request 12/29/2023 Reason Onset Date Comments Refill Request 01/10/2024 Reason Onset Date Comments Refill Request 01/19/2024 Reason Comments Toe Pain (Toe) LEFT big toe; callus , blister x 3 months Reason Onset Date Comments Refill Request 02/21/2024 Reason Comments Back Pain X 5 days Reason Comments New Pain Callous Specialty Diagnoses / Procedures Referred By Contac t Referred To Contact Podiatry Diagnoses Blister of toe, left, subsequent encounter Procedures CONSULT TO PODIATRY OFFICE/OUTPATIENT NEW HIGH MDM 60 MINUTES Clemente Negro, CURTIS.PRODUCT PROMOTER SALES PERSON [address] [place] [address] Referral ID Status Reason Start Date Expiration Date V isits Requested Visits Authorized [id number] Closed PCP Requested Referral 01/31/2024 01/30/2025 1 1 Reason Comments Acute Visit Reason Onset Date Comments Refill Request 03/20/2024 Reason Onset Date Comments Refill Request 03/22/2024 Reason Onset Date Comments Refill Request 03/23/2024 Reason Comments Follow Up Ulcer Reason Onset Date Comments Refill Request 03/28/2024 Reason Comments Follow Up Ulcer Established Patient Callous Reason Onset Date Comments Refill Request 04/24/2024 Reason Comments Acute Visit struggling to sleep at night Reason Comments Results Labs Reason Comments Insurance Authorization Reason Onset Date Comments Refill Request 05/24/2024 Reason Comments Established Patient Ulcer Tumor/Mass Pain Reason Onset Date Comments Refill Request 06/08/2024 Reason Comments Follow Up 6 month follow up Reason Onset Date Comments Refill Request 06/23/2024 Reason Comments Established Patient Follow Up Ulcer Reason Onset Date Comments Refill Request 07/02/2024 Reason Onset Date Comments Refill Request 07/07/2024 Reason Comments Follow Up Reason Onset Date Comments Refill Request 07/17/2024 Reason Onset Date Comments Refill Request 07/28/2024 Reason Comments Medication Problem Reason Onset Date Comments Refill Request 08/15/2024 Reason Onset Date Comments Refill Request 08/25/2024 Reason Comments Ulcer Patient reporting im provement and doing dressing changes as ordered. Reason Comments Med Change Request Reason Comments Follow Up 3 month follow up Reason Onset Date Comments Refill Request 09/19/2024 Reason Onset Date Comments Results 09/22/2024 Reason Comments gum pain Reason Onset Date Comments Refill Request 10/28/2024 Reason Onset Date Comments Refill Request 11/30/2024 Reason Onset Date Comments Refill Request 12/13/2024 Reason Comments F/U 1 month BP Reason Comments Insurance Authorization Care Teams (unrecognized sec tion and content) Commercial Real Estate Broker Relationship Specialty Start Date End Date Marvin Sheets MD [address] [place], [place] [address] PCP - General Family Practice 11/24/10 Commercial Real Estate Broker Relationship Specialty Start Date End Date Marvin Sheets MD [address] [place], [place] [address] PCP - General Family Practice 11/24/10 Commercial Real Estate Broker Relationship Specialty Start Date End Date Marvin Sheets MD [address] [place] [address] PCP - General Family Practice 11/24/10 Commercial Real Estate Broker Relationship Specialty Start Date End Date Marvin Sheets MD [address] [place] [address] PCP - General Family Practice 11/24/10 Commercial Real Estate Broker Relationship Specialty Start Date End Date Marvin Sheets MD [address] [place] [address] PCP - General Family Practice 11/24/10 Commercial Real Estate Broker Relationship Specialty Start Date End Date Marvin Sheets MD [address] [place] [address], [place] [address] PCP - General Family Practice 11/24/10 Commercial Real Estate Broker Relationship Specialty Start Date End Date Marvin Sheets MD [address] [place] [address], [place] [address] PCP - General Family Medicine 11/24/10 Commercial Real Estate Broker Relationship Specialty Start Date End Date Marvin Sheets MD [facility] [place] [address] PCP - General Family Medicine 11/24/10 Commercial Real Estate Broker Relationship Specialty Start Date End Date Marvin Sheets MD [facility] [place] [address] PCP - General Family Medicine 11/24/10 Commercial Real Estate Broker Relationship Specialty Start Date End Date Marvin Sheets MD [facility] [place] [address] PCP - General Family Medicine 11/24/10 Commercial Real Estate Broker Relationship Specialty Start Date End Date Marvin Sheets MD [address] [place] [address], [place] [address] PCP - General Family Medicine 11/24/10 Commercial Real Estate Broker Relationship Specialty Start Date End Date Marvin Sheets MD [address] [place] [address] PCP - General Family Medicine 11/24/10 Commercial Real Estate Broker Relationship Specialty Start Date End Date Marvin Sheets MD [address] [place] [address] PCP - General Family Medicine 11/24/10 Commercial Real Estate Broker Relationship Specialty Start Date End Date Marvin Sheets MD [address] [place] [address] PCP - General Family Medicine 11/24/10 Commercial Real Estate Broker Relationship Specialty Start Date End Date Marvin Sheets MD [address] [place] [address] PCP - General Family Medicine 11/24/10 Commercial Real Estate Broker Relationship Specialty Start Date End Date Marvin Sheets MD [address] [place] [address] PCP - General Family Medicine 11/24/10 Commercial Real Estate Broker Relationship Specialty Start Date End Date Marvin Sheets MD [address] [place] [address] PCP - General Family Medicine 11/24/10 Commercial Real Estate Broker Relationship Specialty Start Date End Date Marvin Sheets MD [address] [place] [address] PCP - General Family Medicine 11/24/10 Commercial Real Estate Broker Relationship Specialty Start Date End Date Marvin Sheets MD [address] [place] [address] PCP - General Family Medicine 11/24/10 Commercial Real Estate Broker Relationship Specialty Start Date End Date Marvin Sheets MD [address] [place] [address] PCP - General Family Medicine 11/24/10 Team Status: Active Member Role Status Dates Dr. Marvin Sheets MD Family Provider Active Dr. Marvin Sheets MD Primary Care Provider Active Team Status: Active Member Role Status Dates Dr. Marvin Sheets MD Primary Care Provider Active Dr. Radhika Soria DO Emergency Provider Active Dr. Tejas Genao MD Attending Provider Active Team Status: Active Member Role Status Dates Dr. Marvin Sheets MD Primary Care Provider Active Dr. Radhika Soria DO Emergency Provider Active Dr. Tejas Genao MD Admit Provider, Attending Provider Active Team Status: Active Member Role Status Dates Dr. Marvin Sheets MD Primary Care Provider Active Dr. Radhika Soria DO Emergency Provider Active Dr. Tejas Genao MD Admit Provid er, Attending Provider, Other Provider Active Team Status: Active Member Role Status Dates Dr. Marvin Sheets MD Primary Care Provider Active Dr. Radhika Soria DO Emergency Provider Active Dr. Tejas Genao MD Admit Provider, Other Prov ider Active Rosie MANRIQUEZ PAPrashantC Attending Provider Active Team Status: Inactive Member Role Status Dates Dr. Marvin Sheets MD Primary Care Provider Active Dr. Radhika Soria DO Emergency Provider Active Dr. Tejas Genao MD Admit Provider, Attending Provider Active Team Status: Active Member Role Status Dates Dr. Marvin Sheets MD Primary Care Provider Active Dr. Rj Lynn MD Emergency Provider Active Dr. Tejas Genao MD Admit Provider, Other Prov ider Active Dr. Gabe Badillo MD Attending Provider Active Team Status: Active Member Role Status Dates Dr. Marvin Sheets MD Primary Care Provider Active Dr. Rj Lynn MD Emergency Provider Active Dr. Tejas Genao MD Admit Provid er, Referring Provider, Other Provider Active Dr. Everton Faulkner DO Attending Provider, Other Provider Active Team Status: Active Member Role Status Dates Dr. Marvin Sheets MD Primary Care Provider Active Dr. Rj Lynn MD Emergency Provider Active Dr. Tejas Genao MD Admit Provid er, Attending Provider, Other Provider Active Dr. Bandar Saxena MD Other Provider Active Dr. Everton Faulkner , DO Other Provider Active Team Status: Active Member Role Status Dates Dr. Marvin Sheets MD Primary Care Provider Active Dr. Rj Lynn MD Emergency Provider Active Dr. Tejas Genao MD Admit Provider, Other Prov ider Active Dr. Bandar Saxena MD Attending Provider, Other Provi bonnie Active Dr. Everton Faulkner , DO Other Provider Active Team Status: Active Member Role Status Dates Dr. Marvin Sheets MD Primary Care Provider Active Dr. Rj Lynn MD Emergency Provider Active Dr. Tejas Genao MD Admit Provider, Other Prov ider Active Dr. Bandar Saxena MD Other Provider Active Dr. Everton Faulkner , DO Other Provider Active Dr. Gabe Badillo MD Attending Provider Active Team Status: Inactive Member Role Status Dates Dr. Marvin Sheets MD Primary Care Provider Active Dr. Rj Lynn MD Emergency Provider Active Dr. Tejas Genao MD Admit Provider, Attending Provider Active Dr. Bandar Saxena MD Other Provider Active Dr. Everton Faulkner , DO Other Provider Active Commercial Real Estate Broker Relationship Specialty Start Date End Date Marvin Sheets MD [address] [place] [address] PCP - General Family Medicine 11/24/10 Commercial Real Estate Broker Relationship Specialty Start Date End Date Marvin Sheets MD [address] [place], [place] [address] PCP - General Family Medicine 11/24/10 Commercial Real Estate Broker Relationship Specialty Start Date End Date Marvin Sheets MD [address] [place] [address] PCP - General Family Medicine 11/24/10 Commercial Real Estate Broker Relationship Specialty Start Date End Date Marvin Sheets MD [address] [place] [address] PCP - General Family Medicine 11/24/10 Commercial Real Estate Broker Relationship Specialty Start Date End Date Marvin Sheets MD [address] [place] [address] PCP - General Family Medicine 11/24/10 Commercial Real Estate Broker Relationship Specialty Start Date End Date Marvin Sheets MD [address] [place] [address] PCP - General Family Medicine 11/24/10 Commercial Real Estate Broker Relationship Specialty Start Date End Date Marvin Sheets MD [address] [place] [address] PCP - General Family Medicine 11/24/10 Commercial Real Estate Broker Relationship Specialty Start Date End Date Marvin Sheets MD [address] [place] [address] PCP - General Family Medicine 11/24/10 Commercial Real Estate Broker Relationship Specialty Start Date End Date Marvin Sheets MD [address] [place] [address] PCP - General Family Medicine 11/24/10 Commercial Real Estate Broker Relationship Specialty Start Date End Date Marvin Sheets MD [address] [place] [address] PCP - General Family Medicine 11/24/10 Commercial Real Estate Broker Relationship Specialty Start Date End Date Marvin Sheets MD [address] [place] [address] PCP - General Family Medicine 11/24/10 Commercial Real Estate Broker Relationship Specialty Start Date End Date Marvin Sheets MD [address] [place] [address] PCP - General Family Medicine 11/24/10 Commercial Real Estate Broker Relationship Specialty Start Date End Date Marvin Sheets MD [address] [place] [address] PCP - General Family Medicine 11/24/10 Commercial Real Estate Broker Relationship Specialty Start Date End Date Marvin Sheets MD [address] [place] [address] PCP - General Family Medicine 11/24/10 Commercial Real Estate Broker Relationship Specialty Start Date End Date Marvin Sheets MD [address] [place] [address] PCP - General Family Medicine 11/24/10 Commercial Real Estate Broker Relationship Specialty Start Date End Date Marvin Sheets MD [address] [place] [address] PCP - General Family Medicine 11/24/10 Commercial Real Estate Broker Relationship Specialty Start Date End Date Marvin Sheets MD [address] [place] [address] PCP - General Family Medicine 11/24/10 Commercial Real Estate Broker Relationship Specialty Start Date End Date Marvin Sheets MD [address] [place] [address] PCP - General Family Medicine 11/24/10 Commercial Real Estate Broker Relationship Specialty Start Date End Date Marvin Sheets MD [address] [place] [address] PCP - General Family Medicine 11/24/10 Commercial Real Estate Broker Relationship Specialty Start Date End Date Marvin Sheets MD [address] [place] [address] PCP - General Family Medicine 11/24/10 Commercial Real Estate Broker Relationship Specialty Start Date End Date Marvin Sheets MD [address] [place] [address] PCP - General Family Medicine 11/24/10 Commercial Real Estate Broker Relationship Specialty Start Date End Date Marvin Sheets MD [address] [place] [address] PCP - General Family Medicine 11/24/10 Commercial Real Estate Broker Relationship Specialty Start Date End Date Marvin Sheets MD [address] [place] [address] PCP - General Family Medicine 11/24/10 Commercial Real Estate Broker Relationship Specialty Start Date End Date Marvin Sheets MD [address] [place] [address] PCP - General Family Medicine 11/24/10 Commercial Real Estate Broker Relationship Specialty Start Date End Date Marvin Sheets MD [address] [place] [address] PCP - General Family Medicine 11/24/10 Commercial Real Estate Broker Relationship Specialty Start Date End Date Marvin Sheets MD [address] [place] [address] PCP - General Family Medicine 11/24/10 Commercial Real Estate Broker Relationship Specialty Start Date End Date Marvin Sheets MD [address] [place] [address] PCP - General Family Medicine 11/24/10 Commercial Real Estate Broker Relationship Specialty Start Date End Date Marvin Sheets MD [address] [place] [address] PCP - General Family Medicine 11/24/10 Tiffanie Gillis, CURTIS.PRODUCT PROMOTER SALES PERSON [address] [place] [address] Accounting Manager Assistant Controller Family Medicine 07/09/24 Commercial Real Estate Broker Relationship Specialty Start Date End Date Marvin Sheets MD [address] [place] [address] PCP - General Family Medicine 11/24/10 Tiffanie Gillis, CROWN PRESSER.PRODUCT PROMOTER SALES PERSON [address] [place] [address] Accounting Manager Assistant Controller Family Medicine 07/09/24 Commercial Real Estate Broker Relationship Specialty Start Date End Date Marvin Sheets MD [address] [place] [address] PCP - General Family Medicine 11/24/10 Tiffanie Gillis, CROWN PRESSER.PRODUCT PROMOTER SALES PERSON [address] [place] [address] Accounting Manager Assistant Controller Family Medicine 07/09/24 Clemente Negro CROWN PRESSER.PRODUCT PROMOTER SALES PERSON [address] [place] [address] Accounting Manager Assistant Controller Family Medicine 07/18/24 Commercial Real Estate Broker Relationship Specialty Start Date End Date Marvin Sheets MD [address] [place] [address] PCP - General Family Medicine 11/24/10 Tiffanie Gillis CROWN PRESSER.PRODUCT PROMOTER SALES PERSON [address] [place] [address] Accounting Manager Assistant Controller Family Medicine 07/09/24 Clemente Negro 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 [address] [place] [address] Accounting Manager Assistant Controller Family Medicine 07/18/24 Commercial Real Estate Broker Relationship Specialty Start Date End Date Marvin Sheets MD [address] [place] [address] PCP - General Family Medicine 11/24/10 Tiffanie Gillis 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 [address] [place] [address] Accounting Manager Assistant Controller Family Medicine 07/09/24 Clemente Negro 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 [address] [place] [address] Accounting Manager Assistant Controller Family Medicine 07/18/24 Commercial Real Estate Broker Relationship Specialty Start Date End Date Marvin Sheets MD [address] [place] [address] PCP - General Family Medicine 11/24/10 Tiffanie Gillis 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 [address] [place] [address] Accounting Manager Assistant Controller Family Medicine 07/09/24 Clemente Negro 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 [address] [place] [address] Accounting Manager Assistant Controller Family Medicine 07/18/24 Commercial Real Estate Broker Relationship Specialty Start Date End Date Marvin Sheets MD [address] [place] [address] PCP - General Family Medicine 11/24/10 Tiffanie Gillis 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 [address] [place] [address] Accounting Manager Assistant Controller Family Medicine 07/09/24 Clemente Negro 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 [address] [place] [address] Accounting Manager Assistant Controller Family Medicine 07/18/24 Commercial Real Estate Broker Relationship Specialty Start Date End Date Marvin Sheets MD [address] [place] [address] PCP - General Family Medicine 11/24/10 Tiffanie Gillis 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 [address] [place] [address] Accounting Manager Assistant Controller Family Medicine 07/09/24 Clemente Negro 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 [address] [place] [address] Accounting Manager Assistant [place] 07/18/24 Commercial Real Estate Broker Relationship Specialty Start Date End Date Marvin Sheets MD [address] [place] [address] PCP - General Family Medicine 11/24/10 Tiffanie Gillis 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 [address] [place] [address] Accounting Manager Assistant Controller Family Medicine 07/09/24 Clemente Negro 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 [address] [place] [address] Accounting Manager Assistant Controller Family Medicine 07/18/24 Commercial Real Estate Broker Relationship Specialty Start Date End Date Marvin Sheets MD [address] [place] [address] PCP - General Family Medicine 11/24/10 Tiffanie Gillis CROWN PRESSER.PRODUCT PROMOTER SALES PERSON [address] [place] [address] Accounting Manager Assistant Controller Family Medicine 07/09/24 Clemente Negro CROWN PRESSER.PRODUCT PROMOTER SALES PERSON [address] [place] [address] Accounting Manager Assistant Controller Family Medicine 07/18/24 Commercial Real Estate Broker Relationship Specialty Start Date End Date Marvin Sheets MD [address] [place] [address] PCP - General Family Medicine 11/24/10 Tiffanie Gillis CROWN PRESSER.PRODUCT PROMOTER SALES PERSON [address] [place] [address] Accounting Manager Assistant Controller Family Medicine 07/09/24 12/13/24 Clemente Negro CROWN PRESSER.PRODUCT PROMOTER SALES PERSON [address] [place] [address] Accounting Manager Assistant Controller Family Medicine 07/18/24 Commercial Real Estate Broker Relationship Specialty Start Date End Date Marvin Sheets MD [address] [place] [address] PCP - General Family Medicine 11/24/10 Clemente Negro CROWN PRESSER.PRODUCT PROMOTER SALES PERSON [address] [place] [address] Accounting Manager Assistant Controller Family Medicine 07/18/24 Commercial Real Estate Broker Relationship Specialty Start Date End Date Marvin Sheets MD [address] [place] [address] PCP - General Family Medicine 11/24/10 Clemente Negro 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 [address] [place] [address] Accounting Manager Assistant Controller Family Medicine 07/18/24 Commercial Real Estate Broker Relationship Specialty Start Date End Date Marvin Sheets MD [address] [place] [address] PCP - General Family Medicine 11/24/10 Clemente Negro 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 [address] [place] [address] Accounting Manager Assistant Controller Family Medicine 07/18/24 Commercial Real Estate Broker Relationship Specialty Start Date End Date Marvin Sheets MD [address] [place] [address] PCP - General Family Medicine 11/24/10 Clemente Negro 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 [address] [place] [address] Accounting Manager Assistant Controller Family Medicine 07/18/24 Commercial Real Estate Broker Relationship Specialty Start Date End Date Marvin Sheets MD [address] [place] [address] PCP - General Family Medicine 11/24/10 Clemente Negro 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 [address] [place] [address] Accounting Manager Assistant Controller Family Medicine 07/18/24 Commercial Real Estate Broker Relationship Specialty Start Date End Date Marvin Sheets MD [address] [place], [place] [address] PCP - General Family Medicine 11/24/10 Clemente Negro 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 [address] [place], [place] [address] Accounting Manager Assistant Controller Family Medicine 07/18/24 Team Status: Active Member Role/Relationship Status Dates Clemente Negro NP, SENIOR OFFICE SUPPORT ASSISTANT [facility] Primary Care Provider Active Team Status: Inactive Member Role/Relationship Status Dates Dr. Negrito Sosa DPM Attending Provider Active Start: February 28, 2025 End: March 01, 2025 Clemente Negro NP, SENIOR OFFICE SUPPORT ASSISTANT [employer] Primary Care Provider Active Start: February 28, 2025 End: March 01, 2025 Dr. Riki King MD Referring Provider Active S tart: February 28, 2025 End: March 01, 2025 Team Status: Inactive Member Role/Relationship Status Dates Clemente Negro NP, SENIOR OFFICE SUPPORT ASSISTANT [employer] Primary Care Provider Active Start: March 06, 2025 End: March 06, 2025 Dr. Negrito Sosa DPM Attending Provider Active Start: March 06, 2025 End: March 06, 2025 Dr. Negrito Sosa DPM Referring Provider Active Start: March 06, 2025 End: March 06, 2025 Team Status: Active Member Role/Relationship Status Dates Dr. Negrito Sosa DPM Attending Provider Active Start: March 14, 2025 Clemente Negro NP, SENIOR OFFICE SUPPORT ASSISTANT [employer] Primary Care Provider Active Start: March 14, 2025 Dr. Riki King MD Referring Provider Active S tart: March 14, 2025 Commercial Real Estate Broker Relationship Specialty Start Date End Date Marvin Sheets MD [address] [place], [place] [id number] PCP - General Family Medicine 11/24/10 Clemente Negro 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 [address] [place], [place] [id number] [facility] 07/18/24 Team Status: Inactive Member Role/Relationship Status Dates Dr. Negrito Sosa DPM Attending Provider Active Start: March 28, 2025 End: April 01, 2025 Clemente Negro SENIOR OFFICE SUPPORT ASSISTANT [facility], SENIOR OFFICE SUPPORT ASSISTANT [facility] Primary Care Provider Active Start: March 28, 2025 End: April 01, 2025 Dr. Riki King MD Referring Provider Active S tart: March 28, 2025 End: April 01, 2025 Commercial Real Estate Broker Relationship Specialty Start Date End Date Marvin Sheets MD [address] [place], [place] [address] PCP - General Family Medicine 11/24/10 Clemente Negro APRN.[facility] [address] [place], [place] [id number] [facility] 07/18/24 Goals (unrecognized section and content) Goals may be documented in a n alternate sectionGoals may be documented in an alternate sectionGoals may be documented in an alternate sectionGoals may be documented in an alternate section (unrecognized sect ion and content) No Status Records FoundNo Status Records Found INFORMATION SOURCE (unrecogn ized section and content) DATE CREATED AUTHOR 04/10/2025 [facility] DATE CREATED AUTHOR AUTHOR'S LISSY ATVALERIE 04/19/2025 [facility] Campus FOR RECORDS PERTAINING TO PATIENTS WHO ARE OR HAVE BEEN ENROLLED IN A CHEMICAL DEPENDENCY/SUBSTANCEABUSE PROGRAM, SOME INFORMATION MAY BE OMITTED. This clinical summary was aggregated from multiple sources. Caution should be exercised in using it in the provision of clinical care. This summary normalizes information from multiple sources, and as a consequence, information in this document may materially change the coding, format and clinical context of patient data. In addition, data may be omitted in some cases. CLINICAL DECISIONS SHOULD BE BASED ON THE PRIMARY CLINICAL RECORDS. [employer] [facility]. provides no warranty or guarantee of the accuracy or completeness of information in this document.
[2025-04-20] MEDS: Magnesium 1 GM over 15 mins IV (06:04)
[2025-04-20] MEDS: Lactated Ringers 1,000 ML 15 ML IV (06:04)
--- NOTE | 2025-04-20 06:45 | PCM.PRE.AN2 ---
ASA Classification* ASA Classification ASA Classification: 3 Assessment & Plan Anesthesia* Anesthesia Assessment Anesthesia Assessment: Discussed sedation and/or anesthesia options, risks, benefits, and alternatives with patient/parents/legal guardian/POA. Questions invited. The patient/parents/legal guardian/POA seems to understand and agrees to proceed with anesthesia plan. Reviewed the physical assessment, medical history, allergy history and patient home medications list prior to surgery/procedure/anesthetic and documented any changes. Performed airway and anesthesia risk assessments. Anesthesia Type Anesthesia Type: General Anesthesia Focused Assessment* Temperature: 97.0 F Pulse Rate: 79 Blood Pressure: 148/84 Respiratory Rate: 18 Pulse Ox: 96 Airway Assessment Mouth opens: >3 cm Mallampati Score: II Labs Anesthesia Preop lab: CBC WBC, (4.4-11.0) 12.6 K/mm3 H 04/26/23, 06:00 RBC, (4.6-6.2) 4.86 M/mm3 04/26/23, 06:00 Hgb, (13.0-16.5) 12.7 g/dL L 04/26/23, 06:00 Hct, (40-54) 39.9 % L 04/26/23, 06:00 Plt Count, (150-450) 201 K/mm3 04/26/23, 06:00 CHEMISTRY Potassium, (3.5-5.1) 3.4 mmol/L L 04/26/23, 06:00 Sodium, (136-145) 141 mmol/L 04/26/23, 06:00 Magnesium, (1.6-2.6) 2.3 mg/dL 04/26/23, 06:00 Phosphorus, (2.5-4.9) 3.9 mg/dL 04/25/23, 17:45 BUN, (7-18) 11 mg/dL 04/26/23, 06:00 Creatinine, (0.70-1.30) 0.85 mg/dL 04/26/23, 06:00 Glucose, (74-106) 102 mg/dL 04/26/23, 06:00 COAG Pre-Assessment Diagnosis/Proposed Procedure Planned Operative Procedure(s): ARTHROPLASTY OF LEFT HALLUX INTERPHALANGEAL JOINT WITH DELAYED PRIMARY CLOSURE Anesthesia History Anesthesia History - diagnostic assistant: Anesthesia History - diagnostic assistant Hx Hospitalization No 04/06/25 14:22 Any Problems With Anesthesia No 04/06/25 14:22 Cholinesterase deficiency No 04/06/25 14:22 You/Your Family Experience No 04/06/25 14:22 fever (hyperthermia) with Relationship Recent Exposure to Contagious No 04/20/25 06:17 Disease Does patient have nerve No 04/06/25 14:22 stimulator Patient instructed to have device shut off --Does patient have Pacemaker No 04/20/25 06:17 or ICD? When Was Last Pacemaker Check QUESTION #4 FULL TEXT: You/Your Family Experience fever (hyperthermia) with Anesthesia Last Oral Intake Last Oral intake: Last Oral Intake NPO since 04:00 04/20/25 06:17 Meds taken in AM with sips of water? Meds patient instructed to take am of surgery PONV PONV - diagnostic assistant: PONV - diagnostic assistant Female No 04/06/25 14:22 HX of Motion Sickness No 04/06/25 14:22 HX of N/V After Surgery No 04/06/25 14:22 Non-Smoker Yes 04/06/25 14:22 Duration of Surgery greater Yes 04/06/25 14:22 than 60 minutes Number of Risk Factors 2 04/06/25 14:22 PONV Score Moderate Risk 04/06/25 14:22 Height & Weight Height & Weight: Anesthesia: Height & Weight Height 6 ft 2 in 04/20/25 06:17 Weight: 154 kg 04/20/25 06:17 Body Mass Index (BMI) 43.5 04/20/25 06:17 Respiratory Assessment Respiratory Assessment - diagnostic assistant: Respiratory Tract Infection Hx - diagnostic assistant Hx Respiratory Tract Infection No 04/06/25 14:22 STOP Sleep Apnea STOP Sleep Apnea - diagnostic assistant: STOP Sleep Apnea - diagnostic assistant Hx Hypertension Yes: CONTROLLED WITH MED 04/06/25 14:22 Hx Sleep Apnea No 04/06/25 14:22 CPAP BIPAP Do you snore loudly (louder Yes 04/06/25 14:22 than talking or can be heard Do you often feel tired/ Yes 04/06/25 14:22 fatigued/ sleepy during daytime? Has anyone observed you stop No 04/06/25 14:22 breathing during sleep? STOP Results Positive 04/06/25 14:22 QUESTION #5 FULL TEXT : Do you snore loudly (louder than talking or can be heard through closed doors)? 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 Specify any problems Hx of Preganancy in last 3 N/A 04/06/25 14:22 Months Nurse Filling Out Transfusion DSCHRIBER 04/06/25 14:22 & Questions: Date: 04/06/25 04/06/25 14:22 Time: 14:24 04/06/25 14:22 Patient unable to answer at this time (ie. confused, unrespo /Reproduction History /Reproductive History - diagnostic assistant: /Reproductive Hx- diagnostic assistant Hx Now No 04/06/25 14:22 Gestational Age (in weeks): EDC: Hx Hx Para Hx Section SAB No 04/06/25 14:22 Active Medications Active Medications: Current Medications Generic Name Dose Route Start Last Admin Trade Name Freq PRN Reason Stop Dose Admin Acetaminophen 1,000 mg 04/20/25 07:30 04/20/25 06:26 Acetaminophen 500 Mg Tablet PO 04/20/25 07:31 1,000 mg PREOP ONE Administration Gabapentin 600 mg 04/20/25 07:30 04/20/25 06:26 Gabapentin 600 Mg Tablet PO 04/20/25 07:31 600 mg PREOP ONE Administration Cefazolin Sodium 2 gm/ Sodium 110 mls @ 200 mls/hr 04/20/25 07:30 Chloride IV 04/20/25 08:02 INTRAOP ONE Magnesium Sulfate 1 gm/ 102 mls @ 408 mls/hr 04/20/25 07:30 04/20/25 06:26 Dextrose IV 04/20/25 07:44 Infused PREOP ONE Infusion Lactated Ringer's 1,000 mls @ 15 mls/hr 04/20/25 05:45 04/20/25 06:04 IV 15 mls/hr .Q48H NATHALIA Administration Insulin Human Lispro 1 - 6 unit 04/20/25 07:30 Insulin Lispro 100 Unit/Ml Insuln.Pen SC Q4H PRN PRN BG>/= 180, SEE PROTOCOL Protocol [facility] Medical History Wears dentures Pressure ulcer Arthritis Low iron Anemia High cholesterol Back pain Injury of back Injury of head and neck Seizures Gastric reflux History of pain when walking Anxiety Depression Former smoker Hypertension Ventral hernia with obstruction but no gangrene Home Medications ?Medication ?Instructions ?Recorded ?Last Taken ?Type lisdexamfetamine 70 mg capsule 70 mg PO DAILY 12/03/15 04/19/25 History (Georgee) albuterol sulfate 90 mcg/actuation 2 puff inhalation Q4H PRN 04/17/23 Unknown History aerosol inhaler shortness of breath cetirizine 10 mg tablet (24Hour 10 mg PO DAILY allergies 04/17/23 04/19/25 History Allergy) fluticasone propionate 50 2 spray intranasal DAILY allergies 04/17/23 Unknown History mcg/actuation nasal spray,suspension hydrochlorothiazide 12.5 mg capsule 12.5 mg PO DAILY HTN 04/17/23 04/20/25 History meloxicam 15 mg tablet 15 mg PO DAILY 04/17/23 04/19/25 History omeprazole 20 mg capsule,delayed 20 mg PO DAILY 04/17/23 04/19/25 History release sertraline 100 mg tablet 100 mg PO DAILY depression 04/17/23 04/19/25 History ferrous sulfate 325 mg (65 mg 325 mg PO DAILY 04/06/25 04/19/25 History iron) tablet lisinopril 20 mg tablet 20 mg PO DAILY 04/06/25 04/20/25 History semaglutide (weight loss) 0.5 0.5 mg subcut FR 04/06/25 04/06/25 History mg/0.5 mL subcutaneous pen injector (Wegovy) amoxicillin 500 mg-potassium 1 tab PO BID 04/20/25 04/19/25 History clavulanate 125 mg tablet (Augmentin) Allergy/AdvReac Type Severity Reaction Status Date / Time latex Allergy Rash Verified 04/20/25 06:03 Surgical History History of myringotomy History of tonsillectomy and adenoidectomy S/P small bowel resection History of umbilical hernia repair Social History Smoking Status: Former smoker Review of Systems (Anesthesia) ROS Narrative System reviewed and no additional complaints, except as documented.
--- NOTE | 2025-04-20 07:25 | RAD_ITS ---
PROCEDURE: TOE(S) MIN 2 VIEWS; O.R. FLUORO FOR C-ARM 04/20/2025 REASON FOR EXAM: Intraoperative fluoroscopy surgery 1st toe TECHNIQUE: Procedure Code: RADTO; RADORFL_C_ARM Modality: DX Procedure: TOE(S) MIN 2 VIEWS; O.R. FLUORO FOR C-ARM Laterality: Left COMPARISON: Left foot study of 03/06/2025. RAD/O.R. Fluoro for C-Arm IMPRESSION: Intraoperative fluoroscopy for surgery left 1st toe. Single fluoroscopic image fluoroscopic images also obtained Reading Location: -[id number]
--- NOTE | 2025-04-20 07:25 | RAD_ITS ---
PROCEDURE: TOE(S) MIN 2 VIEWS; O.R. FLUORO FOR C-ARM 04/20/2025 REASON FOR EXAM: Intraoperative fluoroscopy surgery 1st toe TECHNIQUE: Procedure Code: RADTO; RADORFL_C_ARM Modality: DX Procedure: TOE(S) MIN 2 VIEWS; O.R. FLUORO FOR C-ARM Laterality: Left COMPARISON: Left foot study of 03/06/2025. RAD/Toe(s) Min 2 Views IMPRESSION: Intraoperative fluoroscopy for surgery left 1st toe. Single fluoroscopic image fluoroscopic images also obtained Reading [id number]
[2025-04-20] MEDS: Cefazolin 1 GM/5 ML Vial 3 GM IV (07:29)
[2025-04-20] MEDS: Midazolam 2 MG/2 ML Syringe IV (07:29)
--- NOTE | 2025-04-20 07:30 | MISC_PTH ---
PATIENT: ALEXANDRU MYERS LOC: [facility] [place] U#:[id number] AGE/SX: 39/M ROOM: RE04/20/[address]: Dr. Negrito Sosa DPM : 1985 BED: DIS: 04/20/2025 SPEC #: [id number] RECD: 04/20/25 08:38 STATUS: SIOBHAN REQ #: [id number] UZAIR: 04/20/25 07:[address]: Negrito Sosa DEPT: SURGICAL PATHOLOGY RECD BY: Barry Lakhani ENTERED: 04/20/25 12:55 SP TYPE: [facility] [place] HANH DR: Clemente Salguero, SOFT WORK WRAPPER EXAMINER-C Tissues: A - Toe, NOS Procedures: Decalcification bone/plaque Surgery Specimen Level III HEADER OPERATION: ERAS, arthroplasty of left hallux interphalangeal joint PRE-OP DIAGNOSIS: Hyperextension and hallux rigidus, chronic big toe pain, plantar pressure ulcer TISSUE SUBMITTED: A- Left hallux MICROSCOPIC DIAGNOSIS A. Bone, left hallux, interphalangeal joint arthroplasty: * Articular bone with fatty marrow and reactive/degenerative changes. MICROSCOPIC DESCRIPTION Slides are reviewed. GROSS DESCRIPTION A. Received in formalin labeled with the patient's name and date of . Designated as left hallux bone are 2 irregular wilcox-yellow bone fragments with attached soft tissue, collectively measuring 1.4 x 1.3 x 0.4 cm in aggregate. Entirely submitted in 1 cassette, following decalcification. NC 04/20/2025 CPT:68060,53427
--- NOTE | 2025-04-20 07:32 | OP.PCM_ITS ---
Operative Report (Standard) Operative Information Date of Procedure: 04/20/25 Pre-Operative Diagnosis: 1. Full-thickness wound, left hallux 2. Pain, left hallux Post-Operative Diagnosis: Same as preoperative diagnosis Surgery/Procedure Performed: Procedure #1: Hallux interphalangeal joint arthroplasty, left hallux Procedure #2: Delayed primary closure, full-thickness wound, left hallux thread laster: Yes Healthcare Facility Administrator: Franki Nash, PGY1 Tasks completed by assistant chief train dispatcher: Retracting Additional certified pathology assistant?: No Type of Anesthesia: General and Local RN Documented Start/Stop Times: Operation Date: 04/20/25 07:30 Case Time Into Pre-Op 04/20/25 05:39 Out of Pre-Op 04/20/25 07:26 Procedure Start Time: 07:47 Procedure Stop Time: 08:20 Select all DRAINS/GRAFTS/IMPLANTS that apply: None Special Medications: Per anesthesia Estimated Blood Loss: 10 cc Fluids Replaced: Per anesthesia Specimen collected: Yes Description of specimen(s) removed: Head of proximal phalanx half to micro half to pathology Description of surgery: Indications For Operation: Mr. Worthington is a 39-year-old nondiabetic male who was admitted to [facility] for elective surgery to left great toe due to full-thickness wound to the plantar aspect of left hallux with decreased range of motion of the first metatarsophalangeal joint and IPJ of the left hallux. Patient is well- known to me from the wound care center and has been treated with multiple outpatient excisional debridements with delayed wound healing. He has gone under 2 rounds of oral antibiotics with failure to heal the wound. Patient has a long history of this wound and has been dealing with this for approximately 2 years. Due to the chronicity of the wound it was deemed necessary at this time to take the patient to the operating room to perform the above procedure help heal the wound and decrease his constant pain. The nature of the problem, anticipated procedures, postop recovery/convalences and risk/complications include but not limited to infection, wound healing complications, digital amputation, hypertrophic scarring, numbness, tingling, chronic pain, CRPS, over and under correction, recurrence of deformity, DVT and or PE and the need for further surgery have been discussed in great detail with the patient. All questions have been answered to the patient's satisfaction. There are no guarantees given as to the outcome of the procedure. Description of Procedure: Under mild sedation, the patient was brought into the operating room and placed on the operating table in supine position. Once the patient was under general anesthesia with endotracheal tube, the left lower extremity was blocked using approximately 20 cc 0.5% Marcaine plain. Next, a well-padded calf tourniquet was applied to the left lower extremity. Next, the left lower extremity was pre pped and draped in normal aseptic manner. Next, a timeout was then undertaken verifying the correct patient, extremity, visibility of preoperative markings, availability of the equipment. Next, attention was directed to the left lower extremity. Using a 4 inch Esmarch, left lower extremity was exsanguinated and elevated to 60 degrees for 1 minute. Procedure #1: Hallux interphalangeal joint arthroplasty, left hallux (CPT code: 49346?TA) Next, attention was directed to the left great toe. Using a Hamburg elevator and mini C arm fluoroscopy, the incision placement was marked out as well as the joint to the IPJ of the left hallux. Once satisfied skin marker was used to marjorie out the incision equidistant along the medial edge of the left great toe. Using a #15 blade full-thickness incision down to subcutaneous tissue was performed. Continued blunt dissection carried down to subcutaneous tissue and bone. Once the interphalangeal joint was identified a capsulorrhaphy was performed with a #15 blade. Continued blunt dissection was carried down around the joint space using a loaiza elevator. Continued blunt dissection with sharp dissection was carried down and around the head of the proximal phalanx. Once dissection was satisfied using a sagittal saw and #114 blade the osteotomy along the distal third of the proximal phalanx was performed without incident. Continued blunt dissection with a McGlamery elevator was carried down and around the head of the proximal phalanx and then the head of the proximal phalanx was eventually removed. Complete removal of the bone was confirmed on mini C arm fluoroscopy. The incision was flushed with copious normal saline. The moved head of the proximal phalanx was cut in half with half going to microbiology for culture and sensitivity and the other half for pathology for gross diagnosis. The hallux to the left great toe was put through range of motion and showed great improvement prior to surgery. The deep layer was reapproximated closed using 3-0 Vicryl in buried suture technique. The tourniquet was deflated to left lower extremity reperfusion was noted instantly with all bleeders cauterized and ligated as necessary. The subcutaneous tissue was reapproximated closed with 3-0 Vicryl in running suture technique. The skin was reapproximated and closed using 3-0 nylon in horizontal mattress suture technique. Procedure #2: Delayed primary closure, full-thickness wound, left hallux (CPT code: 04006?TA) Next, attention was directed to the full-thickness wound to the plantar aspect of the left hallux. Excisional debridement down to and including subcutaneous tissue and muscle was performed with a #15 blade done without incident. All hyperkeratotic tissue was removed and discarded. The skin was able to be reapproximated using 3-0 nylon in simple erupted suture technique for delayed primary closure. The left foot was wiped clean and patted dry. Betadine soaked Adaptic was applied to the incision and delayed primary closure sites followed by dry sterile dressing and a single layer Skelton compression bandage was donned to left lower extremity. Patient be placed in a surgical shoe and for partial weightbearing to heel to left lower extremity. The patient tolerated the procedure and anesthesia well and apparent satisfactory condition and was transported to the PACU for further monitoring prior to discharge home. Vital signs stable and vascular status intact to all digits bilateral. Post Operative Plan: Weightbearing: Partial weightbearing with surgical shoe left heel. Full weightbearing right lower extremity. Antibiotics: 3 g Ancef through the IV. Patient will continue his Augmentin 875 twice daily for 2 weeks until gone. DVT Prophylaxis: 81 mg aspirin Man: None Dressing: Betadine soaked Adaptic dry sterile dressing single-layer Skelton compression bandage left lower extremity. Surgical shoe. X-Rays: Post-operative films taken on the operating room. Pain Medication: Percocet 5/325 Follow-up: Patient will follow-up in 1 week/wednesday to the wound care center for dressing change and evaluation. Surgical Findings: Evidence of improved range of motion to the IPJ of the left hallux after arthroplasty. Good closure of the full-thickness wound to plantar aspect of the left hallux. Contaminated case with half of the bone sent to microbiology for culture and sensitivity as well as pathology for gross diagnosis. Complications Complications: No Admit VTE Documentation VTE Present on Admission: No VTE Mechan Device Prophylaxis: SCD's VTE Pharm Prophylaxis ordered?: Yes
[2025-04-20] MEDS: Lidocaine 1% (5 ml sdv) 5 ML Vial IV (07:35)
[2025-04-20] MEDS: fentaNYL 100 MCG/2 ML Ampul IV (08:18)
--- NOTE | 2025-04-20 08:44 | PCM.POST.ANE ---
Anesthesia: Postop Eval I Current Vital Signs Temperature: 97 F Pulse Rate: 68 Blood Pressure: 119/75 Respiratory Rate: 18 Pulse Ox: 95 Assessment Airway patent: Yes Spontaneous unlabored respirations: Yes nausea: No Vomiting: No Anesthesia Complication: No Fluid Hydration Crystalloid volume administer (ml): 800 Total IV fluid infused: 800 Progress Note Anesthesia document: Postop Eval 1 completed: Yes
--- NOTE | 2025-04-20 13:10 | POSTOPAN2_ITS ---
Anesthesia Postop Eval I Sum Postop Eval Completion status Anesthesia document: Postop Eval 1 completed: Yes Anesthesia Postop Eval I Summary Anesthesia Postop Eval I Summary: Anesthesia Postop Eval I: Assessment Summary Airway patent Yes 04/20/25 08:44 [email or web address] Spontaneous unlabored Yes 04/20/25 08:44 SAUSAGE [email or web address] respirations Mental status nausea No 04/20/25 08:44 SAUSAGE [email or web address] Vomiting No 04/20/25 08:44 SAUSAGE [email or web address] Anesthesia Postop Eval I: Fluid Summary Crystalloid volume administer 800 04/20/25 08:44 SAUSAGE [email or web address] (ml) Colloids volume administered ( ml) Blood Product volume administered (ml) Total IV fluid infused 800 04/20/25 08:44 SAUSAGE [email or web address] Anesthesia Postop Eval I: Summary Notes Anesthesia Complication No 04/20/25 08:44 SAUSAGE [email or web address] Anesthesia Complication Comment: Post-operative progress note Anesthesia: Postop Eval II Evaluation Mental status: Awake Pain Level: 1 nausea: No Vomiting: No
--- NOTE | 2025-04-20 13:10 | PCM.POSTANE2 ---
Anesthesia Postop Eval I Sum Postop Eval Completion status Anesthesia document: Postop Eval 1 completed: Yes Anesthesia Postop Eval I Summary Anesthesia Postop Eval I Summary: Anesthesia Postop Eval I: Assessment Summary Airway patent Yes 04/20/25 08:44 PHARMACY BENEFIT MANAGER.APAT Spontaneous unlabored Yes 04/20/25 08:44 PHARMACY BENEFIT MANAGER.APAT respirations Mental status nausea No 04/20/25 08:44 PHARMACY BENEFIT MANAGER.APAT Vomiting No 04/20/25 08:44 PHARMACY BENEFIT MANAGER.APAT Anesthesia Postop Eval I: Fluid Summary Crystalloid volume administer 800 04/20/25 08:44 PHARMACY BENEFIT MANAGER.APAT (ml) Colloids volume administered ( ml) Blood Product volume administered (ml) Total IV fluid infused 800 04/20/25 08:44 PHARMACY BENEFIT MANAGER.APAT Anesthesia Postop Eval I: Summary Notes Anesthesia Complication No 04/20/25 08:44 PHARMACY BENEFIT MANAGER.APAT Anesthesia Complication Comment: Post-operative progress note Anesthesia: Postop Eval II Evaluation Mental status: Awake Pain Level: 1 nausea: No Vomiting: No
== END 2025-04-20 10:03 | disposition home or self-care (01) ==
LOC: SDC 05:19 → AC 05:19
PROVIDERS: PCP Nurse Practitioner Family; Referring Provider Podiatrist Foot & Ankle Surgery; Visit Provider Podiatrist Foot & Ankle Surgery
PROC: (CPT 28292; principal; 2025-04-20 07:15)
DX: M20.22 Hallux rigidus, left foot (principal); L97.522 Non-pressure chronic ulcer of other part of left foot with fat layer exposed; E66.813 Obesity, class 3; Z68.41 Body mass index [BMI] 40.0-44.9, adult; L30.1 Dyshidrosis [pompholyx]; I10 Essential (primary) hypertension; K21.9 Gastro-esophageal reflux disease without esophagitis; F90.1 Attention-deficit hyperactivity disorder, predominantly hyperactive type; F41.9 Anxiety disorder, unspecified; F32.A Depression, unspecified; D50.9 Iron deficiency anemia, unspecified; M19.90 Unspecified osteoarthritis, unspecified site; G89.29 Other chronic pain; G47.33 Obstructive sleep apnea (adult) (pediatric); Z79.85 Long-term (current) use of injectable non-insulin antidiabetic drugs; Z79.899 Other long term (current) drug therapy; Z87.891 Personal history of nicotine dependence
CPT/HCPCS: 28755; 11043; 01480; 73660; 76000; 82962; 87015; 87070; 87075; 87077; 87081; 87102; 87116; 87205; 87206; 88304; 88305; 88311; J2405; J3475

== ENCOUNTER 2025-04-25 14:00 | Outpatient (RCR) | payer BC, SELFPAY ==
[2025-04-04 14:10] VITALS: BP 154/97; PULSE 86; RESP 18; TEMP 35.7
--- NOTE | 2025-04-04 15:21 | PN.PCM_ITS ---
History of Present Illness Date of Service: 04/04/25 Chief Complaint: Full-thickness wound left great toe History of Wound: Patient has had a full-thickness wound to the great toe for the past 2-3 months slow to heal. Progress of Wound: Full-thickness wound left great toe Subjective Subjective Patient is a 39-year-old nondiabetic male presenting to the wound care center today for follow-up evaluation of full-thickness wound to the left hallux plantarly. He has been doing daily dressing changes Betadine paint Band-Aid. He is ready move forward with surgery. He states the wound is still the same size which is a little frustrating as he has been dealing this with about 2 years. He denies trauma. Denies constitutional symptoms. No other pedal complaints at this time. Objective Data Objective Data Vital Signs: Vital Signs Temp Pulse Resp BP O2 Del Method 96.3 F L 86 18 154/97 H Room Air 04/04/25 14:10 04/04/25 14:10 04/04/25 14:10 04/04/25 14:10 04/04/25 14:10 Oxygen Delivery Method Room Air Physical Exam Narrative Vascular: DP and PT pulses palpable to the left lower extremity. Skin temperature is warm to warm from proximal ankles to distal digit bilateral. No focal increase is noted. Nonpitting edema appreciated to the left lower extremity. No erythema. Neurological: Light touch intact. Patient does respond to painful stimuli. Dermatological: Full-thickness wound to the subleft hallux at the level of the IPJ measuring 0.8 x 0.9 x 0.4 cm. Negative probe to bone. Excisional debridement down to including subcutaneous tissue, fascia and muscle of the full-thickness wound to the subleft hallux IPJ done with a number 5 mm dermal curette without incident. Predebridement measurement was 0.6 x 0.7 x 0.2 cm. Postdebridement measurement 0.8 x 0.9 x 0.3 cm. Muscle skeletal: No pain to palpation to full-thickness wound. No pain with calf pressure. Debridement Note Debridement Note Debridement Free Text: Excisional debridement down to including subcutaneous tissue, fascia and muscle of the full-thickness wound to the subleft hallux IPJ done with a number 5 mm dermal curette without incident. Predebridement malini urement was 0.6 x 0.7 x 0.2 cm. Postdebridement measurement 0.8 x 0.9 x 0.3 cm. Post-Debridement Measurements and Additional Note: Post-Debridement Measurements/Treatment - Nurse 1 - General Ulcer Assessment Start: 04/04/25 14:10 Freq: Status: Active Protocol: RACHELE Activity Type Activity Date Activity User E-sign Co-sign Detail Recorded Client Recorded Date Recorded By Document 04/04/25 14:10 CHRISTA [id number] 04/04/25 14:15 04/04/25 14:10 - Today's Visit Information Type of service Follow-up Visit (Physician/RADIO EQUIPMENT REPAIRER ) Arrival Mode Ambulatory Patient Identification Verified (Name & Yes ) Vital Signs Temperature (97.8 F-99.1 F) 96.3 F L Temperature Source Temporal Pulse Rate (60-100) 86 Pulse Location Monitor Respiratory Rate (12-18) 18 Respiratory rate source Observation Oxygen Delivery Method Room Air Blood Pressure (90/60-120/80) 154/97 H Blood Pressure Mean (mm Hg) 116 Source Monitor Position Semi-Fowlers Blood Pressure Location Right Arm History Since Last Visit- (Skip if this is Patient's initial visit) Have you changed medications since your No last visit? Any new allergies or adverse reactions No Had a fall/change in ADL's that may No increase risk of falls Signs or symptoms of abuse and/or No neglect since last visit Have you been in the hospital since your No last visit? Has dressing in place as prescribed Yes Has compression in place as prescribed N/A Has offloadiing in place as prescribed N/A Experienced any changes in pain level or No management Left Footwear Regular Shoe Right Footwear Regular Shoe Pain Scale: 0-10 Numeric Is Patient Pain Free? Yes [facility] Nurse 1 - General Ulcer Measurement Start: 04/04/25 14:10 Freq: Status: Active Protocol: Activity Type Activity Date Activity User E-sign Co-sign Detail Recorded Client Recorded Date Recorded By Document 04/04/25 14:10 CHRISTA [id number] 04/04/25 14:15 04/04/25 14:10 Wound Center Nurse 1 #1 lt hallux -Current Size (cm) - Length 0.6 -Current Size (cm) - Width 0.8 -Current Size (cm) - Depth 0.6 -Total Square Cm 0.48 -Date of Last Picture (Recall this 04/04/25 field) -Exudate Amt Medium -Exudate Type Serosanguineous -Wound Margin Thickened -Granulation Amt Large (67-100%) -Granulation Quality [place],Red -Texture (Flaca-wound Skin Appearance) Assessed,Callus -Moisture (Flaca-wound Skin Appearance) Assessed -Color (Flaca-wound Skin Appearance) Assessed -Temperature (Flaca-wound Skin No Abnormality Appearance) (Pt Warm) -Tenderness on Palpation (Flaca-wound No Skin Appearance) -Ulcer Cleansing Rinsed/ Irrigated with Saline -Foul Odor after Cleansing No -Anesthetic Used 5% Lidocaine Gel WC - Nurse 2 - General Ulcer CM Notes Start: 04/04/25 14:10 Freq: Status: Active Protocol: Activity Type Activity Date Activity User E-sign Co-sign Detail Recorded Client Recorded Date Recorded By Document 04/04/25 14:25 LAY [id number] 04/04/25 14:26 04/04/25 14:25 Wound Center Nurse 2 -Time 14:25 -Correct Patient Yes -Correct Side, Site, Position Yes -Correct Procedure Yes -Procedure Performed Yes -Type of Procedure Debridement -Clinical Debridement Muscle / Fascia -Tissue Removed Muscle -Post Debridement (cm) - Length 0.8 -Post Debridement (cm) - Width 0.9 -Post Debridement (cm) - Depth 0.3 -Total Square (Post) (cm) 0.72 -Area of Debridement (cm) - Length 0.8 -Area of Debridement (cm) - Width 0.9 -Total Square (Area) (cm) 0.72 -Tunneling No -Undermining/Tunneling No -Circular Undermining No -Wound/Ulcer Outcome Not Healed -Ulcer Cleansing Rinsed/ Irrigated with Saline -Foul Odor after Cleansing No -Bioengineered Tissue No -Bleeding Controlled with Pressure -Treatment Response Procedure Tolerated Well -Offloading No -Debridement - Muscle / Fascia, 1st Yes 20sq cm Pain Scale: 0-10 Numeric Is Patient Pain Free? Yes - Nurse 3 - General Ulcer D/C NN Start: 04/04/25 14:10 Freq: Status: Active Protocol: Activity Type Activity Date Activity User E-sign Co-sign Detail Recorded Client Recorded Date Recorded By Document 04/04/25 14:40 CHRISTA [id number] 04/04/25 14:41 04/04/25 14:40 Wound Care Center Nurse 3 #1 lt hallux -Other Dressing BETADINE -Primary Dressing Covered/Secured with Dry Gauze, Secured with Tape Pain Scale: 0-10 Numeric Is Patient Pain Free? Yes Assessment/Plan Assessment/Plan (1) Non-pressure chronic ulcer of other part of left foot with necrosis of muscle: CODE(S): L97.523 - Non-pressure chronic ulcer of other part of left foot with necrosis of muscle PLAN: Patient was examined and evaluated. All findings were discussed with the patient. All questions were answered to the patient satisfaction. Excisional debridement down to including subcutaneous tissue, fascia and muscle of the full-thickness wound to the subleft hallux IPJ done with a number 5 mm dermal curette without incident. Predebridement measurement was 0.6 x 0.7 x 0.2 cm. Postdebridement measurement 0.8 x 0.9 x 0.3 cm. The left great toe was white clean and patted dry. Betadine paint and dry sterile dressing was applied applied followed by compression wrap. We will be planning surgery on 04/20/2025 with IPJ arthroplasty and delayed primary closure. Risk benefits again discussed with patient great detail. He is ready move forward with elective surgery. I educated the patient on signs symptoms of infection prior to the procedure. He is to call the office or update me at the wound care center to be placed on antibiotics 1 to 2 weeks before the operating day. Patient will follow-up with Dr. Sosa in 1 week (2) Osteoarthritis of left foot: CODE(S): M19.072 - Primary osteoarthritis, left ankle and foot
--- NOTE | 2025-04-05 10:12 | WC ---
PHOTO- LEFT HALLUX 04/04/25
[2025-04-18 13:54] VITALS: BP 161/96; PULSE 94; RESP 18; TEMP 36.2
--- NOTE | 2025-04-18 14:57 | PN.PCM_ITS ---
History of Present Illness Date of Service: 04/18/25 Chief Complaint: Full-thickness wound left great toe History of Wound: Patient has had a full-thickness wound to the great toe for the past 2-3 months slow to heal. Progress of Wound: Full-thickness wound left great toe Subjective Subjective Patient is a 39-year-old male presenting to clinic today follow-up evaluation of left hallux plantar full-thickness wound. Patient is ready move forward with surgery this Wednesday. He is doing dressing changes as discussed. He has noticed some drainage and blood on the bandage with that every/daily dressing changes. He denies any constitutional symptoms. Denies trauma. No other pedal complaints at this time. Objective Data Objective Data Vital Signs: Vital Signs Temp Pulse Resp BP O2 Del Method 97.2 F L 94 18 161/96 H Room Air 04/18/25 13:54 04/18/25 13:54 04/18/25 13:54 04/18/25 13:54 04/18/25 13:54 Oxygen Delivery Method Room Air Physical Exam Narrative Vascular: DP and PT pulses palpable to the left lower extremity. Skin temp erature is warm to warm from proximal ankles to distal digit bilateral. No focal increase is noted. Nonpitting edema appreciated to the left lower extremity. Blanchable erythema appreciated to the left hallux. Neurological: Light touch intact. Patient does respond to painful stimuli. Dermatological: Full-thickness wound to the subleft hallux at the level of the IPJ measuring 1.3 x 1.2 x 0.4 cm negative probe to bone. Blanchable erythema appreciated to the left hallux. Excisional debridement down to including subcutaneous tissue, fascia and muscle of the full-thickness wound to the subleft hallux IPJ done with a number 5 mm dermal curette without incident. Predebridement measurement was 1.0 x 1.0 x 0.2 cm. Postdebridement measurement 1.3 x 1.2 x 0.4 cm. Muscle skeletal: No pain to palpation to full-thickness wound. No pain with calf pressure. Debridement Note Debridement Note Debridement Free Text: Excisional debridement down to including subcutaneous tissue, fascia and muscle of the full-thickness wound to the subleft hallux IPJ done with a number 5 mm dermal curette without incident. Predebridement measurement was 1.0 x 1.0 x 0.2 cm. Postdebridement measurement 1.3 x 1.2 x 0.4 cm. Post-Debridement Measurements and Additional Note: Post-Debridement Measurements/Treatment WC - Nurse 1 - General Ulcer Assessment Start: 04/04/25 14:10 Freq: Status: Active Protocol: RACHELE Activity Type Activity Date Activity User E-sign Co-sign Detail Recorded Client Recorded Date Recorded By Document 04/04/25 14:10 KW [id number] 04/04/25 14:15 KW Document 04/18/25 13:54 KW [id number] 04/18/25 14:03 KW 04/04/25 04/18/25 14:10 13:54 WC - Today's Visit Information Type of service Follow-up Visit Follow-up Visit (Physician/PUMP ATTENDANT (Physician/PUMP ATTENDANT ) ) Arrival Mode Ambulatory Ambulatory Patient Identification Verified (Name & Yes Yes ) Vital Signs Temperature (97.8 F-99.1 F) 96.3 F L 97.2 F L Temperature Source Temporal Temporal Pulse Rate (60-100) 86 94 Pulse Location Monitor Monitor Respiratory Rate (12-18) 18 18 Respiratory rate source Observation Observation Oxygen Delivery Method Room Air Room Air Blood Pressure (90/60-120/80) 154/97 H 161/96 H Blood Pressure Mean (mm Hg) 116 117 Source Monitor Monitor Position Semi-Fowlers Semi-Fowlers Blood Pressure Location Right Arm Left Arm History Since Last Visit- (Skip if this is Patient's initial visit) Have you changed medications since your No No last visit? Any new allergies or adverse reactions No No Had a fall/change in ADL's that may No No increase risk of falls Signs or symptoms of abuse and/or No No neglect since last visit Have you been in the hospital since your No No last visit? Has dressing in place as prescribed Yes Yes Has compression in place as prescribed N/A N/A Has offloadiing in place as prescribed N/A N/A Experienced any changes in pain level or No No management Left Footwear Regular Shoe Regular Shoe Right Footwear Regular Shoe Regular Shoe Pain Scale: 0-10 Numeric Is Patient Pain Free? Yes Yes - Nurse 1 - General Ulcer Measurement Start: 04/04/25 14:10 Freq: Status: Active Protocol: Activity Type Activity Date Activity User E-sign Co-sign Detail Recorded Client Recorded Date Recorded By Document 04/04/25 14:10 [id number] 04/04/25 14:15 Document 04/18/25 13:54 [id number] [id number] 04/18/25 14:03 04/04/25 04/18/25 14:10 13:54 Wound Center Nurse 1 #1 lt hallux -Current Size (cm) - Length 0.6 1 -Current Size (cm) - Width 0.8 0.5 -Current Size (cm) - Depth 0.6 0.7 -Total Square Cm 0.48 0.5 -Date of Last Picture (Recall this 04/04/25 04/18/25 field) -Exudate Amt Medium Medium -Exudate Type Serosanguineous Serosanguineous -Wound Margin Thickened Thickened -Granulation Amt Large (67-100%) Large (67-100%) -Granulation Quality [place],Red -Texture (Flaca-wound Skin Appearance) Assessed,Callus Assessed,Callus ,Localized Edema -Moisture ([place]-wound Skin Appearance) Assessed Assessed -Color ([place]-wound Skin Appearance) Assessed Assessed, Erythema -Temperature ([place]-wound Skin No Abnormality No Abnormality Appearance) (Pt Warm) (Pt Warm) -Tenderness on Palpation ([place]-wound No No Skin Appearance) -Ulcer Cleansing Rinsed/ Rinsed/ Irrigated with Irrigated with Saline Saline -Foul Odor after Cleansing No No -Anesthetic Used 5% Lidocaine 5% Lidocaine Gel Gel WC - Nurse 2 - General Ulcer CM Notes Start: 04/04/25 14:10 Freq: Status: Active Protocol: Activity Type Activity Date Activity User E-sign Co-sign Detail Recorded Client Recorded Date Recorded By Document 04/04/25 14:25 [id number] 04/04/25 14:26 Document 04/18/25 14:13 [id number] 04/18/25 14:17 04/04/25 04/18/25 14:25 14:13 Wound Center Nurse 2 #1 lt hallux -Time 14:25 14:13 -Correct Patient Yes Yes -Correct Side, Site, Position Yes Yes -Correct Procedure Yes Yes -Procedure Performed Yes Yes -Type of Procedure Debridement Debridement -Clinical Debridement Muscle / Fascia Muscle / Fascia -Tissue Removed Muscle Muscle -Post Debridement (cm) - Length 0.8 1.3 -Post Debridement (cm) - Width 0.9 1.2 -Post Debridement (cm) - Depth 0.3 0.4 -Total Square (Post) (cm) 0.72 1.56 -Area of Debridement (cm) - Length 0.8 1.3 -Area of Debridement (cm) - Width 0.9 1.2 -Total Square (Area) (cm) 0.72 1.56 -Tunneling No No -Undermining/Tunneling No No -Circular Undermining No No -Wound/Ulcer Outcome Not Healed Not Healed -Ulcer Cleansing Rinsed/ Rinsed/ Irrigated with Irrigated with Saline Saline -Foul Odor after Cleansing No No -Bioengineered Tissue No No -Bleeding Controlled with Pressure Pressure -Treatment Response Procedure Procedure Tolerated Well Tolerated Well -Offloading No No -Debridement - Muscle / Fascia, 1st Yes Yes 20sq cm Pain Scale: 0-10 Numeric Is Patient Pain Free? Yes Yes - Nurse 3 - General Ulcer D/C NN Start: 04/04/25 14:10 Freq: Status: Active Protocol: Activity Type Activity Date Activity User E-sign Co-sign Detail Recorded Client Recorded Date Recorded By Document 04/04/25 14:40 [id number] 04/04/25 14:41 Document 04/18/25 14:26 DL [id number] 04/18/25 14:28 DL 04/04/25 04/18/25 14:40 14:26 Wound Care Center Nurse 3 #1 lt hallux -Ulcer Cleansing Rinsed/ Irrigated with Saline -Foul Odor after Cleansing No -Other Dressing BETADINE Betadine -Primary Dressing Covered/Secured with Dry Gauze, Dry Gauze, Secured with Secured with Tape Tape Pain Scale: 0-10 Numeric Is Patient Pain Free? Yes Yes - Visit Discharge Discharge Condition Stable Ambulatory Status Ambulatory Transportation Private Auto Assessment/Plan Assessment/Plan (1) Non-pressure chronic ulcer of other part of left foot with necrosis of muscle: CODE(S): L97.523 - Non-pressure chronic ulcer of other part of left foot with necrosis of muscle PLAN: Patient was examined and evaluated. All findings were discussed with the patient. All questions were answered to the patient satisfaction. Excisional debridement down to including subcutaneous tissue, fascia and muscle of the full-thickness wound to the subleft hallux IPJ done with a number 5 mm dermal curette without incident. Predebridement measurement was 1.0 x 1.0 x 0.2 cm. Postdebridement measurement 1.3 x 1.2 x 0.4 cm. The left lower extremities were cleaned and patted dry. Betadine soaked gauze followed by dry sterile dressing and compression wrap were donned to the left lower extremity and hallux. Will plan for surgery this Wednesday. All risk and benefits discussed with patient great detail. He is understanding of this. Due to the blanchable erythema appreciated to the left great toe the patient will be placed on Augmentin 875 twice daily for 2 weeks prior to his procedure. Patient will follow-up with Dr. Sosa in 1 week (2) Osteoarthritis of left foot: CODE(S): M19.072 - Primary osteoarthritis, left ankle and foot
--- NOTE | 2025-04-19 07:54 | WC ---
PHOTO - LEFT HALLUX 04/18/25
[2025-04-25 14:29] VITALS: BP 176/113; PULSE 96; RESP 18; TEMP 36.2
--- NOTE | 2025-04-25 14:40 | PCM.WC.PN ---
History of Present Illness Date of Service: 04/25/25 Chief Complaint: Full-thickness wound left great toe History of Wound: Patient has had a full-thickness wound to the great toe for the past 2-3 months slow to heal. Progress of Wound: Full-thickness wound left great toe status post IPJ arthroplasty with delayed primary closure, left great toe. DOS: 04/20/2025 Subjective Subjective Patient is a 39-year-old male presenting to wound care center today follow-up evaluation of full-thickness wound status post IPJ arthroplasty and delayed primary closure to left hallux. DOS: 04/20/2025. He has left the postoperative dressing clean dry and intact. He rates his pain a 6 out of 10 on the pain scale because he did not take any pain meds today. Overall he is doing very well and grateful for his care. He denies any new onset of trauma. Denies constitutional symptoms. No other pedal complaints at this time. Objective Data Objective Data Vital Signs: Vital Signs Temp Pulse Resp BP O2 Del Method 97.2 F L 96 18 176/113 H Room Air 04/25/25 14:29 04/25/25 14:29 04/25/25 14:29 04/25/25 14:29 04/25/25 14:29 Oxygen Delivery Method Room Air Physical Exam Narrative Vascular: DP and PT pulses palpable to the left lower extremity. Skin temperature is warm to warm from proximal ankles to distal digit bilateral. No focal increase is noted. Nonpitting edema appreciated to the left lower extremity. No erythema to the left hallux. Neurological: Light touch intact. Patient does respond to painful stimuli. Dermatological: Full-thickness wound status post delayed primary closure to the plantar left hallux. The incision is well coapted with suture with no erythema drainage or concern for infection. Muscle skeletal: No pain to palpation to full-thickness wound. No pain with calf pressure. Debridement Note Debridement Note Post-Debridement Measurements and Additional Note: Post-Debridement Measurements/Treatment - Nurse 1 - General Ulcer Assessment Start: 04/04/25 14:10 Freq: Status: Active Protocol: NEOT Activity Type Activity Date Activity User E-sign Co-sign Detail Recorded Client Recorded Date Recorded By Document 04/04/25 14:10 CHRISTA [id number] 04/04/25 14:15 KW Document 04/18/25 13:54 KW [id number] 04/18/25 14:03 Document 04/25/25 14:29 [id number] 04/25/25 14:32 04/04/25 04/18/25 04/25/25 14:10 13:54 14:29 - Today's Visit Information Type of service Follow-up Visit Follow-up Visit Follow-up Visit (Physician/WOOD LATHE OPERATOR (Physician/WOOD LATHE OPERATOR (Physician/WOOD LATHE OPERATOR ) ) ) Arrival Mode Ambulatory Ambulatory Patient Identification Verified (Name & Yes Yes Yes ) Vital Signs Temperature (97.8 F-99.1 F) 96.3 F L 97.2 F L 97.2 F L Temperature Source Temporal Temporal Temporal Pulse Rate (60-100) 86 94 96 Pulse Location Monitor Monitor Monitor Respiratory Rate (12-18) 18 18 18 Respiratory rate source Observation Observation Observation Oxygen Delivery Method Room Air Room Air Room Air Blood Pressure (90/60-120/80) 154/97 H 161/96 H 176/113 H Blood Pressure Mean (mm Hg) 116 117 134 Source Monitor Monitor Monitor Position Semi-Fowlers Semi-Fowlers Sitting Blood Pressure Location Right Arm Left Arm Right Arm History Since Last Visit- (Skip if this is Patient's initial visit) Have you changed medications since your No No No last visit? Any new allergies or adverse reactions No No No Had a fall/change in ADL's that may No No No increase risk of falls Signs or symptoms of abuse and/or No No No neglect since last visit Have you been in the hospital since your No No No last visit? Has dressing in place as prescribed Yes Yes Yes Has compression in place as prescribed N/A N/A Yes Has offloadiing in place as prescribed N/A N/A Yes Experienced any changes in pain level or No No No management Left Footwear Regular Shoe Regular Shoe Surgical Shoe with pressure relief insole Right Footwear Regular Shoe Regular Shoe Pain Scale: 0-10 Numeric Is Patient Pain Free? Yes Yes Yes - Nurse 1 - General Ulcer Measurement Start: 04/04/25 14:10 Freq: Status: Active Protocol: Activity Type Activity Date Activity User E-sign Co-sign Detail Recorded Client Recorded Date Recorded By Document 04/04/25 14:10 [id number] 04/04/25 14:15 Document 04/18/25 13:54 [id number] 04/18/25 14:03 Document 04/25/25 14:29 [id number] 04/25/25 14:32 04/04/25 04/18/25 04/25/25 14:10 13:54 14:29 Wound Center Nurse 1 #1 lt hallux -Current Size (cm) - Length 0.6 1 0.1 -Current Size (cm) - Width 0.8 0.5 0.1 -Current Size (cm) - Depth 0.6 0.7 0.1 -Total Square Cm 0.48 0.5 0.01 -Date of Last Picture (Recall this 04/04/25 04/18/25 04/25/25 field) -Photo Taken Yes -Tunneling No -Undermining/Tunneling No -Circular Undermining No -Exudate Amt Medium Medium -Exudate Type Serosanguineous Serosanguineous -Wound Margin Thickened Thickened -Granulation Amt Large (67-100%) Large (67-100%) -Granulation Quality [place],Red [place],Red -Texture (Flaca-wound Skin Appearance) Assessed,Callus Assessed,Callus ,Localized Edema -Moisture (Flaca-wound Skin Appearance) Assessed Assessed -Color (Flaca-wound Skin Appearance) Assessed Assessed, Erythema -Temperature (Flaca-wound Skin No Abnormality No Abnormality Appearance) (Pt Warm) (Pt Warm) -Tenderness on Palpation (Flaca-wound No No Skin Appearance) -Ulcer Cleansing Rinsed/ Rinsed/ Irrigated with Irrigated with Saline Saline -Foul Odor after Cleansing No No -Anesthetic Used 5% Lidocaine 5% Lidocaine Gel Gel -Wound Comment(s) POST OP, SUTURES INTACT WC - Nurse 2 - General Ulcer CM Notes Start: 04/04/25 14:10 Freq: Status: Active Protocol: Activity Type Activity Date Activity User E-sign Co-sign Detail Recorded Client Recorded Date Recorded By Document 04/04/25 14:25 [id number] 04/04/25 14:26 Document 04/18/25 14:13 [id number] 04/18/25 14:17 04/04/25 04/18/25 14:25 14:13 Wound Center Nurse 2 #1 lt hallux -Time 14:25 14:13 -Correct Patient Yes Yes -Correct Side, Site, Position Yes Yes -Correct Procedure Yes Yes -Procedure Performed Yes Yes -Type of Procedure Debridement Debridement -Clinical Debridement Muscle / Fascia Muscle / Fascia -Tissue Removed Muscle Muscle -Post Debridement (cm) - Length 0.8 1.3 -Post Debridement (cm) - Width 0.9 1.2 -Post Debridement (cm) - Depth 0.3 0.4 -Total Square (Post) (cm) 0.72 1.56 -Area of Debridement (cm) - Length 0.8 1.3 -Area of Debridement (cm) - Width 0.9 1.2 -Total Square (Area) (cm) 0.72 1.56 -Tunneling No No -Undermining/Tunneling No No -Circular Undermining No No -Wound/Ulcer Outcome Not Healed Not Healed -Ulcer Cleansing Rinsed/ Rinsed/ Irrigated with Irrigated with Saline Saline -Foul Odor after Cleansing No No -Bioengineered Tissue No No -Bleeding Controlled with Pressure Pressure -Treatment Response Procedure Procedure Tolerated Well Tolerated Well -Offloading No No -Debridement - Muscle / Fascia, 1st Yes Yes 20sq cm Pain Scale: 0-10 Numeric Is Patient Pain Free? Yes Yes - Nurse 3 - General Ulcer D/C NN Start: 04/04/25 14:10 Freq: Status: Active Protocol: Activity Type Activity Date Activity User E-sign Co-sign Detail Recorded Client Recorded Date Recorded By Document 04/04/25 14:40 KW [id number] 04/04/25 14:41 KW Document 04/18/25 14:26 DL [id number] 04/18/25 14:28 DL 04/04/25 04/18/25 14:40 14:26 Wound Care Center Nurse 3 #1 lt hallux -Ulcer Cleansing Rinsed/ Irrigated with Saline -Foul Odor after Cleansing No -Other Dressing BETADINE Betadine -Primary Dressing Covered/Secured with Dry Gauze, Dry Gauze, Secured with Secured with Tape Tape Pain Scale: 0-10 Numeric Is Patient Pain Free? Yes Yes - Visit Discharge Discharge Condition Stable Ambulatory Status Ambulatory Transportation Private Auto Assessment/Plan Assessment/Plan (1) Non-pressure chronic ulcer of other part of left foot with necrosis of muscle: CODE(S): L97.523 - Non-pressure chronic ulcer of other part of left foot with necrosis of muscle PLAN: Patient was examined and evaluated. All findings were discussed with the patient. All questions were answered to the patient satisfaction. After exam the patient is a status post IPJ arthroplasty with delayed primary closure to the full-thickness wound to the left hallux. DOS: 04/20/2025. The incisions were dressed with Betadine soaked Adaptic dry sterile dressing Coban and Cheng bandages from sulcus of toes to mid calf to left lower extremity. Patient can be partial weightbearing to left heel with surgical shoe. He will continue his Augmentin 875 twice daily antibiotic until gone. He will continue postoperative care and Kirby therapy and continue to rest and elevate as discussed. He is grateful for his care and will follow-up in 1 week. Patient will follow-up with Dr. Sosa in 1 week (2) Osteoarthritis of left foot: CODE(S): M19.072 - Primary osteoarthritis, left ankle and foot
--- NOTE | 2025-04-27 08:55 | WC ---
PHOTO-LEFT HALLUX 04/25/25
== END 2025-05-01 23:59 | disposition home or self-care (01) ==
LOC: WC 14:00
PROVIDERS: PCP Nurse Practitioner Family; Referring Provider Dermatology; Visit Provider Podiatrist Foot & Ankle Surgery
DX: L97.523 Non-pressure chronic ulcer of other part of left foot with necrosis of muscle (principal); M19.072 Primary osteoarthritis, left ankle and foot
CPT/HCPCS: 11043; 99213; G0463

== ENCOUNTER 2025-05-30 14:00 | Outpatient (RCR) | payer BC, SELFPAY ==
[2025-05-02 14:38] VITALS: BP 169/110; PULSE 89; RESP 18; TEMP 36.2
--- NOTE | 2025-05-02 15:32 | PCM.WC.PN ---
History of Present Illness Date of Service: 05/05/25 Chief Complaint: Full-thickness wound left great toe History of Wound: Patient has had a full-thickness wound to the great toe for the past 2-3 months slow to heal. Progress of Wound: Healing full-thickness wound to the plantar left hallux status post IPJ arthroplasty with delayed primary closure. Subjective Subjective Patient is a 39-year-old male presenting to clinic today follow-up evaluation status post IPJ arthroplasty with delayed primary closure to the left hallux. Patient is doing well and has no pain. He is not taking any pain medication at this time. He leaves the dressing clean dry and intact. He is weightbearing to heel only. He is doing well. He has practicing Kirby therapy as discussed in his postoperative plan. He denies trauma. Denies constitutional symptoms. No other pedal complaints at this time. Objective Data Objective Data Vital Signs: Vital Signs Temp Pulse Resp BP 97.1 F L 89 18 169/110 H 05/02/25 14:38 05/02/25 14:38 05/02/25 14:38 05/02/25 14:38 Physical Exam Narrative Vascular: DP and PT pulses palpable to the left lower extremity. Skin temperature is warm to warm from proximal ankles to distal digit bilateral. No focal increase is noted. Nonpitting edema appreciated to the left lower extremity. No erythema to the left hallux. Neurological: Light touch intact. Patient does respond to painful stimuli. Dermatological: Evidence of small full-thickness wound half removal of suture to the delayed primary closure area to the plantar left hallux. Wound measures 0.5 x 0.4 x 0.1 cm. Wound base is granular with no signs of infection. Excisional debridement down to including subcutaneous tissue with a number 3 mm dermal curette to the full-thickness wound to the plantar left hallux done without incident. Predebridement measurement was sanguinous crust. Postdebridement measurement is 0.5 x 0.4 x 0.1 cm. Muscle skeletal: No pain to palpation to full-thickness wound. Evidence of improved range of motion to the IPJ left hallux. No pain with calf pressure. Debridement Note Debridement Note Debridement Free Text: Excisional debridement down to including subcutaneous tissue with a number 3 mm dermal curette to the full-thickness wound to the plantar left hallux done without incident. Predebridement measurement was sanguinous crust. Postdebridement measurement is 0.5 x 0.4 x 0.1 cm. Post-Debridement Measurements and Additional Note: Post-Debridement Measurements/Treatment - Nurse 1 - General Ulcer Assessment Start: 05/02/25 14:38 Freq: Status: Active Protocol: RACHELE Activity Type Activity Date Activity User E-sign Co-sign Detail Recorded Client Recorded Date Recorded By Document 05/02/25 14:38 RB [id number] 05/02/25 14:41 RB 05/02/25 14:38 WC - Today's Visit Information Type of service Follow-up Visit (Physician/AIRDROP SYSTEMS TECHNICIAN ) Arrival Mode Ambulatory Transfer Assistance None Patient Identification Verified (Name & Yes ) Patient Requires Transmission-Based No Precautions Vital Signs Temperature (97.8 F-99.1 F) 97.1 F L Temperature Source Temporal Pulse Rate (60-100) 89 Pulse Location Monitor Respiratory Rate (12-18) 18 Respiratory rate source Observation Blood Pressure (90/60-120/80) 169/110 H Blood Pressure Mean (mm Hg) 129 Source Monitor Position Semi-Fowlers Blood Pressure Location Left Arm History Since Last Visit- (Skip if this is Patient's initial visit) Have you changed medications since your No last visit? Any new allergies or adverse reactions No Had a fall/change in ADL's that may No increase risk of falls Signs or symptoms of abuse and/or No neglect since last visit Have you been in the hospital since your No last visit? Has dressing in place as prescribed Yes Has compression in place as prescribed Yes Has offloadiing in place as prescribed N/A Experienced any changes in pain level or No management Left Footwear Regular Shoe Right Footwear Regular Shoe Pain Scale: 0-10 Numeric Is Patient Pain Free? No left hallux -Description Dull -Intensity 5 -Duration (hours) Acute -Pain Behavior Withdrawal from Touch -Pain Aggravating Factors ADL's,Exercise/ Activity -Alleviating Factors/Interventions None - Nurse 1 - General Ulcer Measurement Start: 05/02/25 14:38 Freq: Status: Active Protocol: Activity Type Activity Date Activity User E-sign Co-sign Detail Recorded Client Recorded Date Recorded By Document 05/02/25 14:38 RB [id number] 05/02/25 14:41 RB 05/02/25 14:38 Wound Center Nurse 1 #1 lt hallux -Combined with other wound No -Current Size (cm) - Length 0.1 -Current Size (cm) - Width 0.1 -Current Size (cm) - Depth 0.1 -Total Square Cm 0.01 -Photo Taken Yes -Tunneling No -Undermining/Tunneling No -Circular Undermining No -Exudate Amt Small -Exudate Type Serosanguineous -Wound Margin Distinct, Outline Attached -Granulation Amt Large (67-100%) -Granulation Quality [place] -Slough/Fibrin Yes -Necrosis Amt Small (1-33%) -Necrotic Tissue Type Adherent Slough -Structure Exposed N/A -Texture (Flaca-wound Skin Appearance) Assessed -Moisture (Flaca-wound Skin Appearance) Assessed -Color (Flaca-wound Skin Appearance) Assessed -Temperature (Flaca-wound Skin No Abnormality Appearance) (Pt Warm) -Tenderness on Palpation (Flaca-wound No Skin Appearance) -Ulcer Cleansing Wound Cleanser -Foul Odor after Cleansing No -Wound Comment(s) 4 sutures intact on incision on left hallux and 1suture intact on plantar of left hallux. incision well approxiamted WC - Nurse 2 - General Ulcer CM Notes Start: 05/02/25 14:38 Freq: Status: Active Protocol: Activity Type Activity Date Activity User E-sign Co-sign Detail Recorded Client Recorded Date Recorded By Document 05/02/25 14:48 LAY [id number] 05/02/25 14:50 LAY 05/02/25 14:48 Wound Center Nurse 2 -Time 14:49 -Correct Patient Yes -Correct Side, Site, Position Yes -Correct Procedure Yes -Procedure Performed Yes -Type of Procedure Debridement -Clinical Debridement Subcutaneous -Tissue Removed Subcutaneous -Post Debridement (cm) - Length 0.5 -Post Debridement (cm) - Width 0.4 -Post Debridement (cm) - Depth 0.1 -Total Square (Post) (cm) 0.20 -Area of Debridement (cm) - Length 0.5 -Area of Debridement (cm) - Width 0.4 -Total Square (Area) (cm) 0.20 -Tunneling No -Undermining/Tunneling No -Circular Undermining No -Wound/Ulcer Outcome Not Healed -Ulcer Cleansing Rinsed/ Irrigated with Saline -Foul Odor after Cleansing No -Bioengineered Tissue No -Bleeding Controlled with Pressure -Treatment Response Procedure Tolerated Well -Offloading Yes -Type of Offloading Surgical Shoe -Debridement - Subq, 1st 20sq cm Yes Pain Scale: 0-10 Numeric Is Patient Pain Free? Yes WC - Nurse 3 - General Ulcer D/C NN Start: 05/02/25 14:38 Freq: Status: Active Protocol: Activity Type Activity Date Activity User E-sign Co-sign Detail Recorded Client Recorded Date Recorded By Document 05/02/25 15:05 RB [id number] 05/02/25 15:06 RB 05/02/25 15:05 Wound Care Center Nurse 3 #1 lt hallux -Ulcer Cleansing betadine -Other Dressing betadine gauze/ dry gauze/ coban/ lawrence left foot Treatment Response Procedure Tolerated Well Pain Scale: 0-10 Numeric Is Patient Pain Free? 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 All fines were discussed with the patient. All questions were answered to the patient satisfaction. Excisional debridement down to including subcutaneous tissue with a number 3 mm dermal curette to the full-thickness wound to the plantar left hallux done without incident. Predebridement measurement was sanguinous crust. Postdebridement measurement is 0.5 x 0.4 x 0.1 cm. The left hallux is clean and patted dry. Betadine paint followed by sterile Band-Aid and dry sterile dressing was applied. Patient will continue to rest and ice and elevate as discussed during his postoperative consultation and continue Kirby therapy. Patient can be weightbearing with surgical shoe to heel only. Patient will follow-up with Dr. Sosa in 1 week. (2) Osteoarthritis of left foot: CODE(S): M19.072 - Primary osteoarthritis, left ankle and foot
--- NOTE | 2025-05-03 10:11 | WC ---
PHOTO-LEFT HALLUX 05/02/25
[2025-05-09 14:32] VITALS: BP 186/116; PULSE 104; RESP 18; TEMP 36.3
[2025-05-09 15:01] VITALS: BP 150/113; PULSE 96
--- NOTE | 2025-05-09 15:49 | PN.PCM_ITS ---
History of Present Illness Date of Service: 05/09/25 Chief Complaint: Full-thickness wound left great toe History of Wound: Patient has had a full-thickness wound to the great toe for the past 2-3 months slow to heal. Progress of Wound: Healing full-thickness wound to the plantar left hallux status post IPJ arthroplasty with delayed primary closure. Subjective Subjective Patient is a 39-year-old male presenting to clinic today follow-up evaluation status post IPJ arthroplasty with delayed primary closure to the left hallux. Patient is doing well and is weightbearing as tolerated in surgical shoe. Denies trauma. Denies pain. Denies constitutional symptoms. No other pedal complaints at this time. Objective Data Objective Data Vital Signs: Vital Signs Temp Pulse Resp BP O2 Del Method 97.3 F L 96 18 150/113 H Room Air 05/09/25 14:32 05/09/25 15:01 05/09/25 14:32 05/09/25 15:01 05/09/25 14:32 Oxygen Delivery Method Room Air Physical Exam Narrative Vascular: DP and PT pulses palpable to the left lower extremity. Skin tempe rature is warm to warm from proximal ankles to distal digit bilateral. No focal increase is noted. Nonpitting edema appreciated to the left lower extremity. No erythema to the left hallux. Neurological: Light touch intact. Patient does respond to painful stimuli. Dermatological: Incisions are well coapted with suture. Left hallux full- thickness wound measures 0.2 x 0.1 x 0.1 cm. Wound base is granular with no signs of infection. Muscle skeletal: No pain to palpation to full-thickness wound. Evidence of improved range of motion to the IPJ left hallux. No pain with calf pressure. Debridement Note Debridement Note Debridement Free Text: Excisional debridement down to including subcutaneous tissue with a number 3 mm dermal curette to the full-thickness wound to the plantar left hallux done without incident. Predebridement measurement was sanguinous crust. Postdebridement measurement is 0.5 x 0.4 x 0.1 cm. Post-Debridement Measurements and Additional Note: Post-Debridement Measurements/Treatment GREG - Nurse 1 - General Ulcer Assessment Start: 05/02/25 14:38 Freq: Status: Active Protocol: RACHELE Activity Type Activity Date Activity User E-sign Co-sign Detail Recorded Client Recorded Date Recorded By Document 05/02/25 14:38 RB [id number] 05/02/25 14:41 RB Document 05/09/25 14:32 GM [id number] 05/09/25 14:35 GM Document 05/09/25 15:01 GM [id number] 05/09/25 15:02 05/02/25 05/09/25 05/09/25 14:38 14:32 15:01 WC - Today's Visit Information Type of service Follow-up Visit Follow-up Visit (Physician/CARE COMPANION (Physician/CARE COMPANION ) ) Arrival Mode Ambulatory Ambulatory Transfer Assistance None None Patient Identification Verified (Name & Yes Yes ) Patient Requires Transmission-Based No Precautions Vital Signs Temperature (97.8 F-99.1 F) 97.1 F L 97.3 F L Temperature Source Temporal Oral Pulse Rate (60-100) 89 104 H 96 Pulse Location Monitor Monitor Monitor Respiratory Rate (12-18) 18 18 Respiratory rate source Observation Observation Oxygen Delivery Method Room Air Blood Pressure (90/60-120/80) 169/110 H 186/116 H 150/113 H Blood Pressure Mean (mm Hg) 129 139 125 Source Monitor Monitor Position Semi-Fowlers Sitting Blood Pressure Location Left Arm Left Arm History Since Last Visit- (Skip if this is Patient's initial visit) Have you changed medications since your No No last visit? Any new allergies or adverse reactions No No Had a fall/change in ADL's that may No No increase risk of falls Signs or symptoms of abuse and/or No No neglect since last visit Have you been in the hospital since your No No last visit? Has dressing in place as prescribed Yes Yes Has compression in place as prescribed Yes No Has offloadiing in place as prescribed N/A Yes Experienced any changes in pain level or No No management Left Footwear Regular Shoe Surgical Shoe with pressure relief insole Right Footwear Regular Shoe Pain Scale: 0-10 Numeric Is Patient Pain Free? No Yes Yes left hallux -Description Dull -Intensity 5 -Duration (hours) Acute -Pain Behavior Withdrawal from Touch -Pain Aggravating Factors ADL's,Exercise/ Activity -Alleviating Factors/Interventions None WC - Nurse 1 - General Ulcer Measurement Start: 05/02/25 14:38 Freq: Status: Active Protocol: Activity Type Activity Date Activity User E-sign Co-sign Detail Recorded Client Recorded Date Recorded By Document 05/02/25 14:38 RB [id number] 05/02/25 14:41 RB Document 05/09/25 14:32 GM [id number] 05/09/25 14:35 05/02/25 05/09/25 14:38 14:32 Wound Center Nurse 1 #1 lt hallux -Combined with other wound No -Current Size (cm) - Length 0.1 0.2 -Current Size (cm) - Width 0.1 0.2 -Current Size (cm) - Depth 0.1 0.1 -Total Square Cm 0.01 0.04 -Photo Taken Yes No -Epithelialization Small 1-33% -Tunneling No No -Undermining/Tunneling No No -Circular Undermining No No -Exudate Amt Small None Present -Exudate Type Serosanguineous -Wound Margin Distinct, Distinct, Outline Outline Attached Attached -Granulation Amt Large (67-100%) Small (1-33%) -Granulation Quality [place] -Slough/Fibrin Yes No -Necrosis Amt Small (1-33%) None Present (0 %) -Necrotic Tissue Type Adherent Slough -Structure Exposed N/A -Texture (Flaca-wound Skin Appearance) Assessed Assessed -Moisture (Flaca-wound Skin Appearance) Assessed Assessed -Color (Flaca-wound Skin Appearance) Assessed Assessed -Temperature (Flaca-wound Skin No Abnormality No Abnormality Appearance) (Pt Warm) (Pt Warm) -Tenderness on Palpation (Flaca-wound No Skin Appearance) -Ulcer Cleansing Wound Cleanser -Foul Odor after Cleansing No No -Wound Comment(s) 4 sutures intact on incision on left hallux and 1suture intact on plantar of left hallux. incision well approxiamted WC - Nurse 2 - General Ulcer CM Notes Start: 05/02/25 14:38 Freq: Status: Active Protocol: Activity Type Activity Date Activity User E-sign Co-sign Detail Recorded Client Recorded Date Recorded By Document 05/02/25 14:48 [id number] 05/02/25 14:50 JF Document 05/09/25 14:41 [id number] 05/09/25 14:42 05/02/25 05/09/25 14:48 14:41 Wound Center Nurse 2 #1 lt hallux -Time 14:49 -Correct Patient Yes Yes -Correct Side, Site, Position Yes No -Correct Procedure Yes No -Procedure Performed Yes No -Type of Procedure Debridement -Clinical Debridement Subcutaneous -Tissue Removed Subcutaneous -Post Debridement (cm) - Length 0.5 0.1 -Post Debridement (cm) - Width 0.4 0.1 -Post Debridement (cm) - Depth 0.1 0.1 -Total Square (Post) (cm) 0.20 0.01 -Area of Debridement (cm) - Length 0.5 0.1 -Area of Debridement (cm) - Width 0.4 0.1 -Total Square (Area) (cm) 0.20 0.01 -Tunneling No -Undermining/Tunneling No -Circular Undermining No -Wound/Ulcer Outcome Not Healed Not Healed -Ulcer Cleansing Rinsed/ Irrigated with Saline -Foul Odor after Cleansing No -Bioengineered Tissue No -Bleeding Controlled with Pressure -Treatment Response Procedure Tolerated Well -Offloading Yes -Type of Offloading Surgical Shoe -Debridement - Subq, 1st 20sq cm Yes Pain Scale: 0-10 Numeric Is Patient Pain Free? Yes Yes - Nurse 3 - General Ulcer D/C NN Start: 05/02/25 14:38 Freq: Status: Active Protocol: Activity Type Activity Date Activity User E-sign Co-sign Detail Recorded Client Recorded Date Recorded By Document 05/02/25 15:05 [id number] 05/02/25 15:06 RB Document 05/09/25 15:01 [id number] 05/09/25 15:02 05/02/25 05/09/25 15:05 15:01 Wound Care Center Nurse 3 #1 lt hallux -Ulcer Cleansing betadine Not Cleansed -Foul Odor after Cleansing No -Other Dressing betadine gauze/ betadine and dry gauze/ bandaid coban/ lawrence left foot Treatment Response Procedure Tolerated Well Pain Scale: 0-10 Numeric Is Patient Pain Free? 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 All fines were discussed with the patient. All questions were answered to the patient satisfaction. After exam of the patient's full-thickness wound is healing. It is very small at this time and no debridement was performed while in clinic. Betadine paint was applied to the incision and all sutures were removed with a sterile pickup and #15 blade without incident. The incision was wiped clean and patted dry. Steri-Strips were applied followed by Betadine paint and dry sterile dressing and Tubigrip. Patient will will leave Steri-Strips clean dry and intact. He can begin to shower but not soak starting tomorrow. He can begin to weight-bear as tolerated in regular shoe gear if he can don it without discomfort to the great toe or wear the surgical shoe until follow-up. Patient will follow-up with Dr. Sosa in 2 week. (2) Osteoarthritis of left foot: CODE(S): M19.072 - Primary osteoarthritis, left ankle and foot
[2025-05-23 10:36] VITALS: BP 162/108; PULSE 89; RESP 18; TEMP 35.8
--- NOTE | 2025-05-24 09:17 | WC ---
PHOTO: LEFT PLANTAR 05/23/25
--- NOTE | 2025-05-26 15:55 | PCM.WC.PN ---
History of Present Illness Date of Service: 05/26/25 Chief Complaint: Full-thickness wound left great toe History of Wound: Patient has had a full-thickness wound to the great toe for the past 2-3 months slow to heal. Progress of Wound: Healing full-thickness wound to the plantar left hallux status post IPJ arthroplasty with delayed primary closure. Subjective Subjective Patient is a 39-year-old male presenting to clinic today for evaluation of status post left hallux IPJ arthroplasty with delayed primary closure to the full-thickness wound. Patient states that everything is healed. He has starting to wear regular shoe gear and notices redness and pain to the top of his big toe. He is concern for infection. Denies trauma. Denies constitutional symptoms. No other pedal complaints at this time. Objective Data Objective Data Vital Signs: Vital Signs Temp Pulse Resp BP O2 Del Method 96.5 F L 89 18 162/108 H Room Air 05/23/25 10:36 05/23/25 10:36 05/23/25 10:36 05/23/25 10:36 05/09/25 14:32 Oxygen Delivery Method Room Air Physical Exam Narrative Vascular: DP and PT pulses palpable to the left lower extremity. Skin temperature is warm to warm from proximal ankles to distal digit bilateral. No focal increase is noted. Nonpitting edema appreciated to the left lower extremity. Blanchable erythema to the left hallux. Neurological: Light touch intact. Patient does respond to painful stimuli. Dermatological: Incision well coapted and healed. Full-thickness wound to plantar aspect of left great toe is now healed. Muscle skeletal: Mild pain to palpation to dorsal aspect left hallux. No pain with calf pressure. Debridement Note Debridement Note Post-Debridement Measurements and Additional Note: Post-Debridement Measurements/Treatment WC - Nurse 1 - General Ulcer Assessment Start: 05/02/25 14:38 Freq: Status: Active Protocol: RACHELE Activity Type Activity Date Activity User E-sign Co-sign Detail Recorded Client Recorded Date Recorded By Document 05/02/25 14:38 RB [id number] 05/02/25 14:41 RB Document 05/09/25 14:32 GM [id number] 05/09/25 14:35 GM Document 05/09/25 15:01 GM [id number] 05/09/25 15:02 GM Document 05/23/25 10:36 TS [id number] 05/23/25 10:42 TS 05/02/25 05/09/25 05/09/25 14:38 14:32 15:01 - Today's Visit Information Type of service Follow-up Visit Follow-up Visit (Physician/HANDSTITCHING MACHINE COLLAR FELLER (Physician/HANDSTITCHING MACHINE COLLAR FELLER ) ) Arrival Mode Ambulatory Ambulatory Transfer Assistance None None Patient Identification Verified (Name & Yes Yes ) Patient Requires Transmission-Based No Precautions Vital Signs Temperature (97.8 F-99.1 F) 97.1 F L 97.3 F L Temperature Source Temporal Oral Pulse Rate (60-100) 89 104 H 96 Pulse Location Monitor Monitor Monitor Respiratory Rate (12-18) 18 18 Respiratory rate source Observation Observation Oxygen Delivery Method Room Air Blood Pressure (90/60-120/80) 169/110 H 186/116 H 150/113 H Blood Pressure Mean (mm Hg) 129 139 125 Source Monitor Monitor Position Semi-Fowlers Sitting Blood Pressure Location Left Arm Left Arm History Since Last Visit- (Skip if this is Patient's initial visit) Have you changed medications since your No No last visit? Any new allergies or adverse reactions No No Had a fall/change in ADL's that may No No increase risk of falls Signs or symptoms of abuse and/or No No neglect since last visit Have you been in the hospital since your No No last visit? Has dressing in place as prescribed Yes Yes Has compression in place as prescribed Yes No Has offloadiing in place as prescribed N/A Yes Experienced any changes in pain level or No No management Left Footwear Regular Shoe Surgical Shoe with pressure relief insole Right Footwear Regular Shoe Pain Scale: 0-10 Numeric Is Patient Pain Free? No Yes Yes left hallux -Description Dull -Intensity 5 -Duration (hours) Acute -Pain Behavior Withdrawal from Touch -Pain Aggravating Factors ADL's,Exercise/ Activity -Alleviating Factors/Interventions None 05/23/25 10:36 WC - Today's Visit Information Type of service Follow-up Visit (Physician/HANDSTITCHING MACHINE COLLAR FELLER ) Arrival Mode Transfer Assistance Patient Identification Verified (Name & Yes ) Patient Requires Transmission-Based No Precautions Vital Signs Temperature (97.8 F-99.1 F) 96.5 F L Temperature Source Temporal Pulse Rate (60-100) 89 Pulse Location Monitor Respiratory Rate (12-18) 18 Respiratory rate source Monitor Oxygen Delivery Method Blood Pressure (90/60-120/80) 162/108 H Blood Pressure Mean (mm Hg) 126 Source Monitor Position Sitting Blood Pressure Location History Since Last Visit- (Skip if this is Patient's initial visit) Have you changed medications since your No last visit? Any new allergies or adverse reactions No Had a fall/change in ADL's that may No increase risk of falls Signs or symptoms of abuse and/or No neglect since last visit Have you been in the hospital since your No last visit? Has dressing in place as prescribed Yes Has compression in place as prescribed N/A Has offloadiing in place as prescribed Yes Experienced any changes in pain level or No management Left Footwear Surgical Shoe with pressure relief insole Right Footwear Regular Shoe Pain Scale: 0-10 Numeric Is Patient Pain Free? No left hallux -Description Aching -Intensity 6 -Duration (hours) Acute -Pain Behavior Withdrawal from Touch -Pain Aggravating Factors Walking -Alleviating Factors/Interventions None WC - Nurse 1 - General Ulcer Measurement Start: 05/02/25 14:38 Freq: Status: Active Protocol: Activity Type Activity Date Activity User E-sign Co-sign Detail Recorded Client Recorded Date Recorded By Document 05/02/25 14:38 RB [id number] 05/02/25 14:41 RB Document 05/09/25 14:32 GM [id number] 05/09/25 14:35 GM Document 05/23/25 10:36 TS [id number] 05/23/25 10:42 TS 05/02/25 05/09/25 05/23/25 14:38 14:32 10:36 Wound Center Nurse 1 #1 lt hallux -Combined with other wound No No -Current Size (cm) - Length 0.1 0.2 0.1 -Current Size (cm) - Width 0.1 0.2 0.1 -Current Size (cm) - Depth 0.1 0.1 0.1 -Total Square Cm 0.01 0.04 0.01 -Photo Taken Yes No Yes -Epithelialization Small 1-33% -Tunneling No No No -Undermining/Tunneling No No No -Circular Undermining No No No -Exudate Amt Small None Present Small -Exudate Type Serosanguineous Serosanguineous -Wound Margin Distinct, Distinct, Thickened Outline Outline Attached Attached -Granulation Amt Large (67-100%) Small (1-33%) Medium (34-66%) -Granulation Quality [place] -Slough/Fibrin Yes No No -Necrosis Amt Small (1-33%) None Present (0 Small (1-33%) %) -Necrotic Tissue Type Adherent Slough Adherent Slough -Structure Exposed N/A None/Limited to Skin Breakdown -Texture (Flaca-wound Skin Appearance) Assessed Assessed Assessed,Callus -Moisture (Flaca-wound Skin Appearance) Assessed Assessed Dry/Scaly -Color (Flaca-wound Skin Appearance) Assessed Assessed No Abnormality -Temperature (Flaca-wound Skin No Abnormality No Abnormality No Abnormality Appearance) (Pt Warm) (Pt Warm) (Pt Warm) -Tenderness on Palpation (Flaca-wound No Skin Appearance) -Ulcer Cleansing Wound Cleanser Soap and Water -Foul Odor after Cleansing No No -Anesthetic Used 5% Lidocaine Gel -Wound Comment(s) 4 sutures intact on incision on left hallux and 1suture intact on plantar of left hallux. incision well approxiamted WC - Nurse 2 - General Ulcer CM Notes Start: 05/02/25 14:38 Freq: Status: Active Protocol: Activity Type Activity Date Activity User E-sign Co-sign Detail Recorded Client Recorded Date Recorded By Document 05/02/25 14:48 [id number] 05/02/25 14:50 Document 05/09/25 14:41 [id number] 05/09/25 14:42 Document 05/23/25 11:18 [id number] 05/23/25 11:19 05/02/25 05/09/25 05/23/25 14:48 14:41 11:18 Wound Center Nurse 2 #1 lt hallux -Time 14:49 -Correct Patient Yes Yes Yes -Correct Side, Site, Position Yes No No -Correct Procedure Yes No No -Procedure Performed Yes No No -Type of Procedure Debridement -Clinical Debridement Subcutaneous -Tissue Removed Subcutaneous -Post Debridement (cm) - Length 0.5 0.1 0 -Post Debridement (cm) - Width 0.4 0.1 0 -Post Debridement (cm) - Depth 0.1 0.1 0 -Total Square (Post) (cm) 0.20 0.01 0 -Area of Debridement (cm) - Length 0.5 0.1 0 -Area of Debridement (cm) - Width 0.4 0.1 0 -Total Square (Area) (cm) 0.20 0.01 0 -Tunneling No -Undermining/Tunneling No -Circular Undermining No -Wound/Ulcer Outcome Not Healed Not Healed Healed- Epithelialized -Ulcer Cleansing Rinsed/ Irrigated with Saline -Foul Odor after Cleansing No -Bioengineered Tissue No -Bleeding Controlled with Pressure -Treatment Response Procedure Tolerated Well -Offloading Yes -Type of Offloading Surgical Shoe -Debridement - Subq, 1st 20sq cm Yes Pain Scale: 0-10 Numeric Is Patient Pain Free? Yes Yes Yes - Nurse 3 - General Ulcer D/C NN Start: 05/02/25 14:38 Freq: Status: Active Protocol: Activity Type Activity Date Activity User E-sign Co-sign Detail Recorded Client Recorded Date Recorded By Document 05/02/25 15:05 RB [id number] 05/02/25 15:06 RB Document 05/09/25 15:01 GM [id number] 05/09/25 15:02 Document 05/23/25 11:33 FL [id number] 05/23/25 11:34 FL 05/02/25 05/09/25 05/23/25 15:05 15:01 11:33 Wound Care Center Nurse 3 #1 lt hallux -Ulcer Cleansing betadine Not Cleansed -Foul Odor after Cleansing No -Other Dressing betadine gauze/ betadine and dry gauze/ bandaid coban/ lawrence left foot LLE -Tubular Bandage Single Layer -Size of Tubigrip Used Size E -Size E ($) 1 Treatment Response Procedure Tolerated Well Pain Scale: 0-10 Numeric Is Patient Pain Free? Yes Yes Yes - Visit Discharge Discharge Condition Stable Stable Stable Ambulatory Status Ambulatory Ambulatory Ambulatory Transportation Private Auto Private Auto Private Auto Medication Reconcilliation completed & No No provided to patient/care provider Clinical Summary of Care Provided Yes Yes Notes: surgical shoe Healed left foot Assessment/Plan Assessment/Plan (1) Cellulitis of left toe: CODE(S): L03.032 - Cellulitis of left toe PLAN: Patient was examined and evaluated. All fines were discussed with the patient. All questions were answered to the patient satisfaction. After exam the patient's incision and full-thickness wounds are healed to the left hallux. Further review of the patient's left great toe shows more concern for rubbing in regular shoe gear which is very possible. Patient has been walking much more than usual. I discussed with the patient that he would need to move forward with extra-depth shoes so that he has better range of motion especially when walking which he is understanding of. For concern of possible cellulitis the patient will be placed on Keflex 500 g 3 times daily for 2 weeks. Patient will follow-up with Dr. Sosa in 1 week.
[2025-05-30 13:52] VITALS: BP 162/105; RESP 18; TEMP 35.9
--- NOTE | 2025-05-31 13:18 | WC ---
PHOTO-LEFT HALLUX 05/30/25
--- NOTE | 2025-05-31 21:53 | PN.PCM_ITS ---
History of Present Illness Date of Service: 05/30/25 Chief Complaint: Full-thickness wound left great toe History of Wound: Patient has had a full-thickness wound to the great toe for the past 2-3 months slow to heal. Progress of Wound: Healing full-thickness wound to the plantar left hallux status post IPJ arthroplasty with delayed primary closure. 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 Patient states everything is healed and is grateful for his care. His pain has improved. Taking antibiotics as prescribed. Redness has improved and he does not feel like he is rubbing in shoe gear. He is grateful for his care. He does admit to dropping a box on his toe the other day which was most likely cause for his pain. Denies constitutional symptoms. No other pedal complaints at this time. Objective Data Objective Data Vital Signs: Vital Signs Temp Pulse Resp BP O2 Del Method 96.6 F L 89 18 162/105 H Room Air 05/30/25 13:52 05/23/25 10:36 05/30/25 13:52 05/30/25 13:52 05/30/25 13:52 Oxygen Delivery Method Room Air Physical Exam Narrative Vascular: DP and PT pulses palpable to the left lower extremity. Skin temperature is warm to warm from proximal ankles to distal digit bilateral. No focal increase is noted. Nonpitting edema appreciated to the left lower extremity. Blanchable erythema to the left hallux, improving. Neurological: Light touch intact. Patient does respond to painful stimuli. Dermatological: Incision well coapted and healed. Full-thickness wound to plantar aspect of left great toe is now healed. Muscle skeletal: Mild pain to palpation to dorsal aspect left hallux. No pain with calf pressure. Debridement Note Debridement Note Post-Debridement Measurements and Additional Note: Post-Debridement Measurements/Treatment WC - Nurse 1 - General Ulcer Assessment Start: 05/02/25 14:38 Freq: Status: Active Protocol: GREG.LOWEXT Activity Type Activity Date Activity User E-sign Co-sign Detail Recorded Client Recorded Date Recorded By Document 05/02/25 14:38 RB [id number] 05/02/25 14:41 RB Document 05/09/25 14:32 [id number] 05/09/25 14:35 GM Document 05/09/25 15:01 GM [id number] 05/09/25 15:02 GM Document 05/23/25 10:36 TS [id number] 05/23/25 10:42 TS Document 05/30/25 13:52 TS [id number] 05/30/25 13:57 TS 05/02/25 05/09/25 05/09/25 14:38 14:32 15:01 WC - Today's Visit Information Type of service Follow-up Visit Follow-up Visit (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/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 (Physician/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 ) ) Arrival Mode Ambulatory Ambulatory Transfer Assistance None None Patient Identification Verified (Name & Yes Yes ) Patient Requires Transmission-Based No Precautions Vital Signs Temperature (97.8 F-99.1 F) 97.1 F L 97.3 F L Temperature Source Temporal Oral Pulse Rate (60-100) 89 104 H 96 Pulse Location Monitor Monitor Monitor Respiratory Rate (12-18) 18 18 Respiratory rate source Observation Observation Oxygen Delivery Method Room Air Blood Pressure (90/60-120/80) 169/110 H 186/116 H 150/113 H Blood Pressure Mean (mm Hg) 129 139 125 Source Monitor Monitor Position Semi-Fowlers Sitting Blood Pressure Location Left Arm Left Arm History Since Last Visit- (Skip if this is Patient's initial visit) Have you changed medications since your No No last visit? Any new allergies or adverse reactions No No Had a fall/change in ADL's that may No No increase risk of falls Signs or symptoms of abuse and/or No No neglect since last visit Have you been in the hospital since your No No last visit? Has dressing in place as prescribed Yes Yes Has compression in place as prescribed Yes No Has offloadiing in place as prescribed N/A Yes Experienced any changes in pain level or No No management Left Footwear Regular Shoe Surgical Shoe with pressure relief insole Right Footwear Regular Shoe Pain Scale: 0-10 Numeric Is Patient Pain Free? No Yes Yes left hallux -Description Dull -Intensity 5 -Duration (hours) Acute -Pain Behavior Withdrawal from Touch -Pain Aggravating Factors ADL's,Exercise/ Activity -Alleviating Factors/Interventions None 05/23/25 05/30/25 10:36 13:52 WC - Today's Visit Information Type of service Follow-up Visit Follow-up Visit (Physician/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 (Physician/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 ) ) Arrival Mode Ambulatory Transfer Assistance None Patient Identification Verified (Name & Yes Yes ) Patient Requires Transmission-Based No No Precautions Vital Signs Temperature (97.8 F-99.1 F) 96.5 F L 96.6 F L Temperature Source Temporal Temporal Pulse Rate (60-100) 89 Pulse Location Monitor Monitor Respiratory Rate (12-18) 18 18 Respiratory rate source Monitor Observation Oxygen Delivery Method Room Air Blood Pressure (90/60-120/80) 162/108 H 162/105 H Blood Pressure Mean (mm Hg) 126 124 Source Monitor Monitor Position Sitting Semi-Fowlers Blood Pressure Location Left Arm History Since Last Visit- (Skip if this is Patient's initial visit) Have you changed medications since your No No last visit? Any new allergies or adverse reactions No No Had a fall/change in ADL's that may No No increase risk of falls Signs or symptoms of abuse and/or No No neglect since last visit Have you been in the hospital since your No No last visit? Has dressing in place as prescribed Yes Yes Has compression in place as prescribed N/A N/A Has offloadiing in place as prescribed Yes N/A Experienced any changes in pain level or No No management Left Footwear Surgical Shoe Regular Shoe with pressure relief insole Right Footwear Regular Shoe Regular Shoe Pain Scale: 0-10 Numeric Is Patient Pain Free? No Yes left hallux -Description Aching -Intensity 6 -Duration (hours) Acute -Pain Behavior Withdrawal from Touch -Pain Aggravating Factors Walking -Alleviating Factors/Interventions None WC - Nurse 1 - General Ulcer Measurement Start: 05/02/25 14:38 Freq: Status: Active Protocol: Activity Type Activity Date Activity User E-sign Co-sign Detail Recorded Client Recorded Date Recorded By Document 05/02/25 14:38 RB [id number] 05/02/25 14:41 RB Document 05/09/25 14:32 GM [id number] 05/09/25 14:35 GM Document 05/23/25 10:36 TS [id number] 05/23/25 10:42 TS 05/02/25 05/09/25 05/23/25 14:38 14:32 10:36 Wound Center Nurse 1 #1 lt hallux -Combined with other wound No No -Current Size (cm) - Length 0.1 0.2 0.1 -Current Size (cm) - Width 0.1 0.2 0.1 -Current Size (cm) - Depth 0.1 0.1 0.1 -Total Square Cm 0.01 0.04 0.01 -Photo Taken Yes No Yes -Epithelialization Small 1-33% -Tunneling No No No -Undermining/Tunneling No No No -Circular Undermining No No No -Exudate Amt Small None Present Small -Exudate Type Serosanguineous Serosanguineous -Wound Margin Distinct, Distinct, Thickened Outline Outline Attached Attached -Granulation Amt Large (67-100%) Small (1-33%) Medium (34-66%) -Granulation Quality [place] -Slough/Fibrin Yes No No -Necrosis Amt Small (1-33%) None Present (0 Small (1-33%) %) -Necrotic Tissue Type Adherent Slough Adherent Slough -Structure Exposed N/A None/Limited to Skin Breakdown -Texture (Flaca-wound Skin Appearance) Assessed Assessed Assessed,Callus -Moisture ([place]aca-wound Skin Appearance) Assessed Assessed Dry/Scaly -Color ([place]aca-wound Skin Appearance) Assessed Assessed No Abnormality -Temperature ([place]aca-wound Skin No Abnormality No Abnormality No Abnormality Appearance) (Pt Warm) (Pt Warm) (Pt Warm) -Tenderness on Palpation (Flaca-wound No Skin Appearance) -Ulcer Cleansing Wound Cleanser Soap and Water -Foul Odor after Cleansing No No -Anesthetic Used 5% Lidocaine Gel -Wound Comment(s) 4 sutures intact on incision on left hallux and 1suture intact on plantar of left hallux. incision well approxiamted WC - Nurse 2 - General Ulcer CM Notes Start: 05/02/25 14:38 Freq: Status: Active Protocol: Activity Type Activity Date Activity User E-sign Co-sign Detail Recorded Client Recorded Date Recorded By Document 05/02/25 14:48 [id number] 05/02/25 14:50 Document 05/09/25 14:41 [id number] 05/09/25 14:42 Document 05/23/25 11:18 [id number] 05/23/25 11:19 Document 05/30/25 14:19 [id number] 05/30/25 14:19 05/02/25 05/09/25 05/23/25 14:48 14:41 11:18 Wound Center Nurse 2 #1 lt hallux -Time 14:49 -Correct Patient Yes Yes Yes -Correct Side, Site, Position Yes No No -Correct Procedure Yes No No -Procedure Performed Yes No No -Type of Procedure Debridement -Clinical Debridement Subcutaneous -Tissue Removed Subcutaneous -Post Debridement (cm) - Length 0.5 0.1 0 -Post Debridement (cm) - Width 0.4 0.1 0 -Post Debridement (cm) - Depth 0.1 0.1 0 -Total Square (Post) (cm) 0.20 0.01 0 -Area of Debridement (cm) - Length 0.5 0.1 0 -Area of Debridement (cm) - Width 0.4 0.1 0 -Total Square (Area) (cm) 0.20 0.01 0 -Tunneling No -Undermining/Tunneling No -Circular Undermining No -Wound/Ulcer Outcome Not Healed Not Healed Healed- Epithelialized -Ulcer Cleansing Rinsed/ Irrigated with Saline -Foul Odor after Cleansing No -Bioengineered Tissue No -Bleeding Controlled with Pressure -Treatment Response Procedure Tolerated Well -Offloading Yes -Type of Offloading Surgical Shoe -Debridement - Subq, 1st 20sq cm Yes Pain Scale: 0-10 Numeric Is Patient Pain Free? Yes Yes Yes 05/30/25 14:19 Wound Center Nurse 2 #1 lt hallux -Time -Correct Patient -Correct Side, Site, Position -Correct Procedure -Procedure Performed -Type of Procedure -Clinical Debridement -Tissue Removed -Post Debridement (cm) - Length -Post Debridement (cm) - Width -Post Debridement (cm) - Depth -Total Square (Post) (cm) -Area of Debridement (cm) - Length -Area of Debridement (cm) - Width -Total Square (Area) (cm) -Tunneling -Undermining/Tunneling -Circular Undermining -Wound/Ulcer Outcome -Ulcer Cleansing -Foul Odor after Cleansing -Bioengineered Tissue -Bleeding Controlled with -Treatment Response -Offloading -Type of Offloading -Debridement - Subq, 1st 20sq cm Pain Scale: 0-10 Numeric Is Patient Pain Free? Yes - Nurse 3 - General Ulcer D/C NN Start: 05/02/25 14:38 Freq: Status: Active Protocol: Activity Type Activity Date Activity User E-sign Co-sign Detail Recorded Client Recorded Date Recorded By Document 05/02/25 15:05 RB [id number] 05/02/25 15:06 RB Document 05/09/25 15:01 GM [id number] 05/09/25 15:02 GM Document 05/23/25 11:33 MT [id number] 05/23/25 11:34 MT Document 05/30/25 14:22 JF [id number] 05/30/25 14:23 JF 05/02/25 05/09/25 05/23/25 15:05 15:01 11:33 Wound Care Center Nurse 3 #1 lt hallux -Ulcer Cleansing betadine Not Cleansed -Foul Odor after Cleansing No -Other Dressing betadine gauze/ betadine and dry gauze/ bandaid coban/ lawrence left foot LLE -Tubular Bandage Single Layer -Size of Tubigrip Used Size E -Size E ($) 1 Treatment Response Procedure Tolerated Well Pain Scale: 0-10 Numeric Is Patient Pain Free? Yes Yes Yes WC - Visit Discharge Discharge Condition Stable Stable Stable Ambulatory Status Ambulatory Ambulatory Ambulatory Transportation Private Auto Private Auto Private Auto Medication Reconcilliation completed & No No provided to patient/care provider Clinical Summary of Care Provided Yes Yes Notes: surgical shoe Healed left foot 05/30/25 14:22 Wound Care Center Nurse 3 #1 lt hallux -Ulcer Cleansing -Foul Odor after Cleansing -Other Dressing LLE -Tubular Bandage Single Layer -Size of Tubigrip Used Size E -Size E ($) 1 Treatment Response Pain Scale: 0-10 Numeric Is Patient Pain Free? Yes WC - Visit Discharge Discharge Condition Stable Ambulatory Status Ambulatory Transportation Private Auto Medication Reconcilliation completed & Yes provided to patient/care provider Clinical Summary of Care Provided Yes Notes: Assessment/Plan Assessment/Plan (1) Pain of left great toe: CODE(S): M79.675 - Pain in left toe(s) PLAN: Patient was examined and evaluated. All fines were discussed with the patient. All questions were answered to the patient satisfaction. After physical exam the patient shows evidence of improvement to the erythema to the left hallux. Given the new light of information and the trauma associated with dropping a box on the big toe, it was most likely the initial concern for redness however due to the patient's chronic full-thickness wound still was concern for cellulitis and the patient will continue to take the antibiotic as prescribed. He admits no pain and is doing well with regular shoe gear. Patient will make sure not to drop boxes on his toe. Follow-up in 2 weeks
== END 2025-06-01 23:59 | disposition home or self-care (01) ==
LOC: WC 14:00
PROVIDERS: PCP Nurse Practitioner Family; Referring Provider Dermatology; Visit Provider Podiatrist Foot & Ankle Surgery
DX: L97.522 Non-pressure chronic ulcer of other part of left foot with fat layer exposed (principal); M19.072 Primary osteoarthritis, left ankle and foot; L03.032 Cellulitis of left toe; M79.675 Pain in left toe(s)
CPT/HCPCS: 11042; 99213; G0463

== ENCOUNTER 2025-05-30 14:34 | Outpatient (RCR) | payer BC, SELFPAY ==
[2025-05-30 15:35] LABS: Hematocrit 49.2 % (40-54); Hemoglobin 16.4 g/dL (13.0-16.5); Mean Corp Hgb Conc 33.3 g/dL (32-36); Mean Corpuscular Volume 75.9 fL (80-94); Mean Platelet Vol. 10.0 fl (6.2-12.0); Platelet Count 170 K/mm3 (150-450); RBC Distribution Width CV 15.8 % (11.6-14.6); RBC Distribution Width SD 42.4 fl (35.1-43.9); Red Blood Count 6.48 M/mm3 (4.6-6.2); White Blood Count 8.2 K/mm3 (4.4-11.0)
[2025-05-30 15:43] LABS: Anion Gap 10 (5-15); BUN 17 mg/dL (4-19); BUN/Creat Ratio 20.7 RATIO (10-20); Calcium,Total 9.7 mg/dL (7.6-11.0); Carbon Dioxide 27.5 mmol/L (21.0-32.0); Chloride 103 mmol/L (98-108); Glucose 97 mg/dL (70-99); Potassium 4.5 mmol/L (3.3-5.1)
[2025-05-30 15:48] LABS: CRP < 3.00 mg/L (0.0-3.0)
== END 2025-05-30 18:00 | disposition home or self-care (01) ==
LOC: LAB 14:34
PROVIDERS: PCP Nurse Practitioner Family; Referring Provider Podiatrist Foot & Ankle Surgery; Visit Provider Podiatrist Foot & Ankle Surgery
DX: L03.90 Cellulitis, unspecified (principal)
CPT/HCPCS: 36415; 80048; 83036; 85027; 85652; 86140

== ENCOUNTER 2025-06-06 14:05 | Outpatient (RCR) | payer BC, SELFPAY ==
[2025-06-06 14:16] VITALS: BP 156/119; PULSE 100; RESP 16; TEMP 36.2
--- NOTE | 2025-06-06 15:08 | PN.PCM_ITS ---
History of Present Illness Date of Service: 06/06/25 Chief Complaint: Full-thickness wound left great toe History of Wound: Patient has had a full-thickness wound to the great toe for the past 2-3 months slow to heal. Progress of Wound: Healed full-thickness wound left hallux Subjective Subjective Patient is a 39-year-old male presenting clinic today follow-up evaluation of full-thickness wound to the plantar aspect of the left great toe status post IPJ arthroplasty with delayed primary closure. Patient's wound is healed. He completed all antibiotics as prescribed. He has no redness or pain and is wearing regular shoe gear as tolerated. He did get his labs that were ordered. He denies trauma. Denies constitutional symptoms. No other pedal complaints at this time. Objective Data Objective Data Vital Signs: Vital Signs Temp Pulse Resp BP O2 Del Method 97.1 F L 100 16 156/119 H Room Air 06/06/25 14:16 06/06/25 14:16 06/06/25 14:16 06/06/25 14:16 06/06/25 14:16 Oxygen Delivery Method Room Air Physical Exam Narrative Vascular: DP and PT pulses palpable to the left lower extremity. Skin temperature is warm to warm from proximal ankles to distal digit bilateral. No focal increase is noted. Nonpitting edema appreciated to the left lower extremity. No erythema. Neurological: Light touch intact. Patient does respond to painful stimuli. Dermatological: Incision well coapted and healed. Full-thickness wound to p lantar aspect of left great toe is now healed. Muscle skeletal: Mild pain to palpation to dorsal aspect left hallux. No pain with calf pressure. 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 ) Arrival Mode Ambulatory Patient Identification Verified (Name & Yes ) Patient Requires Transmission-Based No Precautions Safety Precautions Fall Prevention Vital Signs Temperature (97.8 F-99.1 F) 97.1 F L Temperature Source Temporal Pulse Rate (60-100) 100 Pulse Location Monitor Respiratory Rate (12-18) 16 Respiratory rate source Observation Oxygen Delivery Method Room Air Blood Pressure (90/60-120/80) 156/119 H Blood Pressure Mean (mm Hg) 131 Source Monitor Position Sitting Blood Pressure Location Right Arm History Since Last Visit- (Skip if this is Patient's initial visit) Have you changed medications since your No last visit? Any new allergies or adverse reactions No Had a fall/change in ADL's that may No increase risk of falls Signs or symptoms of abuse and/or No neglect since last visit Have you been in the hospital since your No last visit? Has dressing in place as prescribed Yes Has compression in place as prescribed N/A Has offloadiing in place as prescribed N/A Experienced any changes in pain level or No management Left Footwear Regular Shoe Right Footwear Regular Shoe Pain Scale: 0-10 Numeric Is Patient Pain Free? Yes WC - Nurse 1 - General Ulcer Measurement Start: 06/06/25 14:16 Freq: Status: Active Protocol: Activity Type Activity Date Activity User E-sign Co-sign Detail Recorded Client Recorded Date Recorded By Document 06/06/25 14:16 TS [id number] 06/06/25 14:20 TS 06/06/25 14:16 Wound Center Nurse 1 Point of measurement (cm from the medial 44.5 instep) Point of Measurement (cm from the medial 28 instep) WC - Nurse 2 - General Ulcer CM Notes Start: 06/06/25 14:16 Freq: Status: Active Protocol: Activity Type Activity Date Activity User E-sign Co-sign Detail Recorded Client Recorded Date Recorded By Document 06/06/25 14:34 JF [id number] 06/06/25 14:36 JF 06/06/25 14:34 Pain Scale: 0-10 Numeric Is Patient Pain Free? Yes WC - Nurse 3 - General Ulcer D/C NN Start: 06/06/25 14:16 Freq: Status: Active Protocol: Activity Type Activity Date Activity User E-sign Co-sign Detail Recorded Client Recorded Date Recorded By Document 06/06/25 14:36 JF [id number] 06/06/25 14:38 JF Edit Result 06/06/25 14:36 JF (1) [id number] 06/06/25 14:39 JF (1) LLE - Tubular Bandage => Single Layer - Size of Tubigrip Used => Size E - Size E ($) => 1 06/06/25 14:36 Wound Care Center Nurse 3 LLE -Tubular Bandage Single Layer -Size of Tubigrip Used Size E -Size E ($) 1 Pain Scale: 0-10 Numeric Is Patient Pain Free? Yes WC - Visit Discharge Discharge Condition Stable Ambulatory Status Ambulatory Medication Reconcilliation completed & No provided to patient/care provider Clinical Summary of Care Provided No Notes: PATIENT HEALED AND DISCHARGED. Assessment/Plan Assessment/Plan (1) Pain of left great toe: CODE(S): M79.675 - Pain in left toe(s) PLAN: Patient was examined and evaluated. All findings were discussed with the patient. All questions were answered to the patient satisfaction. After exam the patient's erythema and full-thickness wounds are now healed to the left lower extremity. Review the patient's labs show no concern for infection at this time. Educate the patient to wear wide shoes with a extra-depth shoe gear which she was understanding of. Patient will follow-up in clinic at a private office in next 1 to 2 weeks. He will be discharged from the wound care center today.
== END 2025-06-08 09:32 | disposition home or self-care (01) ==
LOC: WC 14:05
PROVIDERS: PCP Nurse Practitioner Family; Referring Provider Dermatology; Visit Provider Podiatrist Foot & Ankle Surgery
DX: Z09 Encounter for follow-up examination after completed treatment for conditions other than malignant neoplasm (principal); M79.675 Pain in left toe(s)
CPT/HCPCS: 99213; G0463